=== PATIENT | male | born 1960 | race African-American/Black ===

== ENCOUNTER 2016-10-20 11:43 | Inpatient (IN) | payer OTHER ==
--- NOTE | 2016-10-20 12:02 | PDOC ---
History of Present Illness - General History Source: Patient - History of Present Illness Initial Comments: 10/20/16 16:18 The patient is a 55 year old female with a significant past medical history of HIV, and Hep C with cirrhosis of liver, on methadone, current cigarette smoker, presenting to the Emergency Department with fever, cough, and shortness of breath for four days. The patient states that he has had a progressively worsening cough for four days, which produces white phlegm. He also reports shortness of breath and chest pain. As per medical records, the patient was diagnosed with a UTI today, and was started on cipro. He admits that he saw his doctor today, and was sent to the ER for further evalutaion. Pt does endorse feeling not himself. The patient denies palpitations, or diaphoresis. Patient denies nausea, vomiting , and diarrhea. Patient denies headache, or blurry vision. <Florencia Rodriges - Last Filed: 10/20/16 16:18> <Emigdio Chávez - Last Filed: 10/20/16 17:02> - General Chief Complaint: Cold Symptoms Stated Complaint: COUGH Time Seen by Provider: 10/20/16 11:55 Past History <Florencia Rodriges - Last Filed: 10/20/16 16:18> - Past Medical History Anemia: No Asthma: No Cancer: No Cardiac Disorders: No CVA: No COPD: No CHF: No Dementia: No Diabetes: No GI Disorders: No Disorders: No HTN: No Hypercholesterolemia: No HIV: Yes Liver Disease: No Psychiatric Problems: Yes (multiple drug abuse.) Seizures: No Thyroid Disease: No - Surgical History Abdominal Surgery: No Appendectomy: No Cardiac Surgery: No Cholecystectomy: Yes Lung Surgery: No Neurologic Surgery: No Orthopedic Surgery: No - Psycho/Social/Smoking Cessation Hx Anxiety: Yes Suicidal Ideation: No Smoking History: Current every day smoker Have you smoked in the past 12 months: Yes Number of Cigarettes Smoked Daily: 5 Cigars Per Day: 0 'Breaking Loose' booklet given: 07/17/13 Hx Alcohol Use: Yes Drug/Substance Use Hx: Yes Substance Use Type: None Hx Substance Use Treatment: Yes <Emigdio Chávez - Last Filed: 10/20/16 17:02> - Past Medical History Allergies/Adverse Reactions: Allergies Allergy/AdvReac Type Severity Reaction Status Date / Time No Known Allergies Allergy Verified 10/20/16 11:45 Home Medications: Ambulatory Orders Methadone [Dolophine -] 65 mg PO DAILY 04/15/15 Pregabalin [Lyrica -] 50 mg PO DAILY #30 capsule MDD 1 06/30/16 Mirtazapine [Remeron -] 15 mg PO DAILY #30 tablet 10/05/16 Trazodone HCl 100 mg PO HS #60 tablet 10/05/16 Amlodipine Besylate [Norvasc -] 5 mg PO DAILY #30 tablet 10/20/16 Ciprofloxacin [Cipro (Restricted To Id)] 500 mg PO Q12H #20 tablet 10/20/16 Emtricita/Rilpivirine/Tenof Df [Complera Tablet] 1 each PO DAILY #30 tablet 12/29 Ibuprofen 800 mg PO Q8H #10 tablet 10/20/16 Multivitamins [Multivit ([facility] Formulary)] 1 tab PO DAILY #30 tab 10/20/16 Terbinafine HCl [Lamisil] 250 mg PO DAILY #30 tablet 10/20/16 Vit B6/Me-Thfolate/Me-B12/Ala [Podiapn Capsule] 1 cap PO DAILY #30 capsule 10/20 Respiratory Specific PMHX - Complaint Specific PMHX Pneumonia: No TB (Tuberculosis): No <Emigdio Chávez - Last Filed: 10/20/16 17:02> Review of Systems - Review of Systems Able to Perform ROS?: Yes Comments:: 10/20/16 16:18 CONSTITUTIONAL: Reported: + fever, No reported: Chills, Diaphoresis, Generalized Weakness, Malaise, Loss of Appetite HEENT: No reported: Rhinorrhea, Nasal Congestion, Throat Pain, Throat Swelling, Difficulty Swallowing, Mouth Swelling, Ear Pain, Eye Pain, Visual Changes CARDIOVASCULAR: Reported: + chest pain No reported: Syncope, Palpitations, Irregular Heart Rate, Lightheadedness, Peripheral Edema RESPIRATORY: Reported: + cough producing white phlegm, + shortness of breath No reported: Orthopnea, Wheezing, Stridor, Hemoptysis GASTROINTESTINAL: No reported: Abdominal pain, Abdominal Distension, Nausea, Vomiting, Diarrhea, Constipation, Melena, Hematochezia GENITOURINARY: Reported: + UTI No reported: Urgency, Hesitancy, Flank Pain, Genital Pain MUSCULOSKELETAL: No reported: Myalgia, Arthralgia, Joint Swelling, Back pain, Neck Pain SKIN: No reported: Rash, Itching, Pallor HEMATOLOGIC/IMMUNOLOGIC: No reported: Easy Bleeding, Easy Bruising, Lymphadenopathy, Frequent infections ENDOCRINE: No reported: Unexplained Weight Gain, Unexplained Weight Loss, Heat Intolerance , Cold Intolerance NEUROLOGIC: No reported: Headache, Focal Weakness, Paresthesias, Vertigo, Lightheadedness, Unsteady Gait, Seizure, Mental Status Changes, Incontinence PSYCHIATRIC: No reported: Anxiety, Depression <Florencia Rodriges - Last Filed: 10/20/16 16:18> *Physical Exam - Vital Signs Last Vital Signs Temp Pulse Resp BP Pulse Ox 102.9 F H 94 H 22 153/81 96 10/20/16 12:53 10/20/16 12:53 10/20/16 12:53 10/20/16 12:53 10/20/16 12:53 - Physical Exam Comments: 10/20/16 16:19 GENERAL: The patient is awake, alert when verbally stimulated but becomes somnolent gradually during evaluation, Nontoxic - in no acute distress. HEAD: Normocephalic, atraumatic. EYES: extraocular movements intact, sclera anicteric, conjunctiva clear. ENT: Normal voice, Moist mucous membranes. NECK: Normal range of motion, supple without stiffness LUNGS:rales at L>R bsae HEART: Regular rate and rhythm, ABDOMEN: Soft, nontender, normoactive bowel sounds. No guarding, no rebound. . No CVA tenderness EXTREMITIES: Normal range of motion, no edema. +clubbing of fingertips NEUROLOGICAL: No facial assymetry, Normal speech, PSYCH: Normal mood, normal affect. SKIN: hot to touch, Dry, normal turgor, <Florencia Rodriges - Last Filed: 10/20/16 16:18> Heart Score/ECG Review - ECG Impressions Comment:: 10/20/16 12:43 Twelve-lead EKG was performed and reviewed by me. There is normal sinus rhythm with a normal rate. rate of 92 The axis is normal. The intervals are normal. There is normal R wave progression There are no ST or T wave abnormalities. <Emigdio Chávez - Last Filed: 10/20/16 17:02> ED Treatment Course - LABORATORY CBC & Chemistry Diagram: 10/20/16 12:09 10/20/16 12:09 - ADDITIONAL ORDERS Additional order review: Laboratory Results 10/20/16 10/20/16 10/20/16 12:36 12:25 12:09 INR PTT (Actin FS) VBG pH 7.36 POC VBG pCO2 48.9 POC VBG pO2 26.6 L Mixed VBG HCO3 27.2 H Sodium Potassium Chloride Carbon Dioxide Anion Gap BUN Creatinine Creat Clearance w eGFR Random Glucose Lactic Acid Calcium Total Bilirubin AST ALT Alkaline Phosphatase Ammonia 29.85 LD Total Creatine Kinase Creatine Kinase Index CK-MB (CK-2) CK-MB (CK-2) Rel Index Cancelled Troponin I Total Protein Albumin Urine Color Urine Appearance Urine pH Urine Protein Urine Glucose (UA) Urine Ketones Urine Blood Urine Nitrite Urine Bilirubin Urine Urobilinogen Ur Leukocyte Esterase Urine RBC Urine WBC Blood Type Antibody Screen 10/20/16 10/20/16 10/20/16 12:09 12:09 12:09 INR PTT (Actin FS) VBG pH POC VBG pCO2 POC VBG pO2 Mixed VBG HCO3 Sodium Potassium Chloride Carbon Dioxide Anion Gap BUN Creatinine Creat Clearance w eGFR Random Glucose Lactic Acid 1.6 Calcium Total Bilirubin AST ALT Alkaline Phosphatase Ammonia LD Total 248 H Creatine Kinase Creatine Kinase Index CK-MB (CK-2) CK-MB (CK-2) Rel Index Troponin I Total Protein Albumin Urine Color Urine Appearance Urine pH Urine Protein Urine Glucose (UA) Urine Ketones Urine Blood Urine Nitrite Urine Bilirubin Urine Urobilinogen Ur Leukocyte Esterase Urine RBC Urine WBC Blood Type B POSITIVE Antibody Screen Negative 10/20/16 10/20/16 10/20/16 12:09 12:09 12:09 INR 1.53 H D PTT (Actin FS) 38.8 H VBG pH POC VBG pCO2 POC VBG pO2 Mixed VBG HCO3 Sodium 134 L Potassium 4.2 Chloride 99 Carbon Dioxide 27 Anion Gap 8 BUN 22 H D Creatinine 1.8 H D Creat Clearance w eGFR 39.09 Random Glucose 97 D Lactic Acid Calcium 8.6 Total Bilirubin 1.5 H D AST 148 H D ALT 47 D Alkaline Phosphatase 127 H Ammonia LD Total Creatine Kinase 1320 H D Creatine Kinase Index 0.6 CK-MB (CK-2) 8.477 H CK-MB (CK-2) Rel Index Troponin I < 0.02 Total Protein 7.9 Albumin 3.5 Urine Color Yellow Urine Appearance Clear Urine pH 6.0 Urine Protein 1+ H Urine Glucose (UA) Negative Urine Ketones Negative Urine Blood 2+ H Urine Nitrite Negative Urine Bilirubin Negative Urine Urobilinogen 4.0 e.u/dl Ur Leukocyte Esterase Negative Urine RBC 3 Urine WBC 1 Blood Type Antibody Screen 10/20/16 12:09 RBC 4.63 MCV 92.4 MCHC 32.7 RDW 14.3 MPV 8.1 Neutrophils % 87.8 H D Lymphocytes % 6.7 L D Monocytes % 5.1 Eosinophils % 0.0 D Basophils % 0.4 - RADIOLOGY Radiograph Interpretation: 10/20/16 14:04 Chest XRay As reviewed by Dr. Sergey Almonte IMPRESSION: Cardiomegaly. No evidence of active pulmonary disease. 10/20/16 15:[address] As reviewed by Dr. Nir Pond IMPRESSION: No evidence of acute intracranial pathology. - Medications Given in the ED: ED Medications Discontinued Medications Generic Name Dose Route Start Last Admin Trade Name Freq PRN Reason Stop Dose Admin Acetaminophen 650 mg 10/20/16 12:55 10/20/16 13:02 Tylenol - PO 10/20/16 12:56 650 mg ONCE ONE Administration Sodium Chloride 1,000 mls @ 1,000 mls/hr 10/20/16 12:37 10/20/16 13:02 Normal Saline - IV 10/20/16 13:36 1,000 mls/hr .Q1H ONE Administration <Florencia Rodriges - Last Filed: 10/20/16 16:18> - LABORATORY CBC & Chemistry Diagram: 10/20/16 12:09 10/20/16 12:09 - RADIOLOGY Radiology Studies Ordered: Category Date Time Status CHEST X-RAY PORTABLE* [RAD] Stat Radiology 10/20/16 11:59 Ordered <Emigdio Chávez - Last Filed: 10/20/16 17:02> Medical Decision Making - Medical Decision Making 10/20/16 12:38 55y M hx of HIV (VRL <20, CD4 667) secondary to IVDU in the past, on HAART, HCV (VL undetectable), HTN, started on cipro fo UTI today at clinic, sent to the ED for evaluation, on exam the pt endorses havingsome cough, fevers for 4 days productive of whitish sputum. Pt seems mildly confused, but has rales inat the L base. pts vitals noted for hypoxia to low 90s/high 80s on RA, plaed on 2L of NC that improves to the high 90s. suspect pna, sepsis order set obtained will r/o hyperammonia will give fluids, will ck rectal temp 10/20/16 14:18 pts cxr is relatively clear without infiltrate, however with cough, rales and hypoxia suspect this is his main source of fever pts labs noted for low platelets pt does have episodes of confusion.. consider possible meningitis, however with platelets of 68, concern for complictions from tap clinically pt does not have any notable menigismus or signs/symtoms of meningits besides being confused. will treat pt with ctx 2g, vancomycin which will cover both pulmonary cause and meningitis will admit for further manageent 10/20/16 15:[address] sy agree with admission for further mangaement Case discussed in detail with admitting physician including history, physical exam and ancillary studies. Admitting physician has assumed care for the patient, will follow all pending diagnostics and will complete the evaluation and treatment. CRITICAL CARE DOCUMENTATION: I spent ~35 minutes of Critical Care time, excluding separately billable procedures, involving high complexity decision making to assess, manipulate and support vital system function(s) to treat single or multiple vital organ system failure and/or to prevent further life threatening deterioration of the patient' s condition. <Emigdio Chávez - Last Filed: 10/20/16 17:02> *DC/Admit/Observation/Transfer - Attestations Scribe Attestion: 10/20/16 16:19 Documentation prepared by Florencia Rodriges, acting as medical physics researcher for Emigdio Chávez MD. <Florencia Rodriges - Last Filed: 10/20/16 16:18> - Discharge Dispostion Admit: Yes <Emigdio Chávez - Last Filed: 10/20/16 17:02> Diagnosis at time of Disposition: HIV disease Pneumonia Qualifiers: Pneumonia type: due to unspecified organism Laterality: unspecified laterality Lung location: unspecified part of lung Qualified Code(s): J18.9 - Pneumonia, unspecified organism Altered mental status Qualifiers: Altered mental status type: unspecified Qualified Code(s): R41.82 - Altered mental status, unspecified - Referrals
[2016-10-20 12:27] LABS: BASOPHIL 0.4 % (0-2.0); MCH 30.3 pg (25.7-33.7); MCHC 32.7 g/dl (32.0-35.9); MEAN CELL VOLUME 92.4 fl (80-96); MEAN PLT VOLUME 8.1 fl (7.5-11.1); NEUTROPHILS 87.8 % (42.8-82.8); PLATELET COUNT 68 K/MM3 (134-434); RDW 14.3 % (11.9-15.9); WHITE BLOOD COUNT 4.5 K/mm3 (4.0-10.0)
[2016-10-20 12:31] LABS: VENOUS BLOOD GAS HCO3 27.2 meq/L (19-25); VENOUS PH 7.36 (7.32-7.42)
[2016-10-20] MEDS ORDERED: SODIUM CHLORIDE 1,000 ML IV ONE (12:37)
[2016-10-20 12:54] LABS: INR 1.53 (0.82-1.09)
[2016-10-20] MEDS ORDERED: ACETAMINOPHEN 325 MG TABLET (FP) PO ONE (12:55)
[2016-10-20 12:56] LABS: ACTIVATED PTT 38.8 SECONDS (26.9-34.4)
[2016-10-20 12:57] LABS: ALBUMIN 3.5 g/dl (3.4-5.0); ANION GAP 8 (8-16); BILIRUBIN,TOTAL 1.5 mg/dL (0.2-1.0); CALCIUM 8.6 mg/dL (8.5-10.1); CO2 27 mmol/L (21-32); COCKROFT - GAULT 67.97; CREATININE 1.8 mg/dL (0.7-1.3); GLUCOSE,RANDOM 97 mg/dL (74-106); SGOT/AST 148 U/L (15-37); SGPT/ALT 47 U/L (12-78); TOT PROT 7.9 g/dl (6.4-8.2)
[2016-10-20] MEDS ORDERED: ACETAMINOPHEN 325 MG TABLET (FP) ONE (12:58)
[2016-10-20 13:09] LABS: ALK PHOS 127 U/L (45-117); TROPONIN I < 0.02 ng/ml (0.00-0.05)
[2016-10-20 13:31] LABS: URINE APPEARANCE CLEAR; URINE BILIRUBIN NEGATIVE (NEGATIVE); URINE COLOR YELLOW; URINE GLUCOSE (UA) NEGATIVE (NEGATIVE); URINE KETONE NEGATIVE (NEGATIVE); URINE LEUK ESTERASE NEGATIVE (NEGATIVE); URINE NITRITE NEGATIVE (NEGATIVE); URINE UROBILINOGEN 4.0 E.U/dl E.U./dl (0.2-1.0)
[2016-10-20 13:59] LABS: URINE BLOOD 2+ (NEGATIVE); URINE PROTEIN 1+ (NEGATIVE)
[2016-10-20 14:00] LABS: URINE RBC 3 /hpf (0-3); URINE WBC 1 /hpf (3-5)
[2016-10-20] MEDS ORDERED: CEFTRIAXONE 2 GM in DEXTROSE 5%-WATER - 50 ML IVPB ONE (14:16)
[2016-10-20] MEDS ORDERED: VANCOMYCIN 1,000 MG in DEXTROSE 5%-WATER - 250 ML IVPB ONE (14:16)
[2016-10-20] MEDS ORDERED: VANCOMYCIN 1 GRAM (PRE-DOCKED) 250 ML IVPB ONE (15:14)
[2016-10-20] MEDS ORDERED: CEFTRIAXONE 100 ML IVPB ONE (15:14)
--- NOTE | 2016-10-20 15:19 | EKG ---
Test Reason : Blood Pressure : / mmHG Vent. Rate : 092 BPM Atrial Rate : 092 BPM P-R Int : 180 ms QRS Dur : 100 ms QT Int : 366 ms P-R-T Axes : 075 001 060 degrees QTc Int : 452 ms NORMAL SINUS RHYTHM POSSIBLE LEFT ATRIAL ENLARGEMENT BORDERLINE ECG WHEN COMPARED WITH ECG OF 29-JUN-2016 10:46, NO SIGNIFICANT CHANGE WAS FOUND Confirmed by JACKSON WHITLEY MD ([id number]) on 10/20/2016 3:18:37 PM Referred By: Confirmed By:JACKSON WHITLEY MD
--- NOTE | 2016-10-20 15:50 | HP ---
CHIEF COMPLAINT: Cough and fever PCP: [facility] HISTORY OF PRESENT ILLNESS: Poor historian Patient is a 55 year old male with a PMHx of treated Hepatitis C, Stable HIV on HAART with last CD4 667 and viral load >20copies, HTN, Polysubstance abuse on Methadone who reports feeling "lousy" for the last 4 days associated with a productive cough with cheesh-na green sputum that has progressively worsened. Yesterday, patient was laying in bed and began experiencing polyuria every one to two hours throughout the night to the point where he almost urinated on himself. Patient also experienced shortness of breath that prompted him to visit the clinic. They prescribed Ciprofloxacin for UTI, but noticed patient had a fever and brought him to the hospital. Patient on admission was found to have a fever of >102 F, tachypnea, and hypoxia. Patient also reports RLQ pain that he's experienced for several years but worsened today. The pain is a stabbing, nonradiating, and intermittent. The pain occurs every two hours and lasts for an hour. The pain was rated a 7/10 with no alleviating or exacerbating factors. Otherwise, patient denies chest pain, palpitations, hematuria, visual changes, headaches, diarrhea, change in diet. Patient denies taking any drugs or alcohol recently. Patient reports compliance with his medications ER course was notable for: (1) Chest X-ray no acute pathology (2) Ceftriaxone and Vancomycin given (3) Sepsis protocol given Recent Travel: Denies PAST MEDICAL HISTORY: Treated Hepatitis C, HIV, HTN, Polysubstance abuse PAST SURGICAL HISTORY: Cholecystectomy Social History: Smoking: Smokes almost half a pack per day Alcohol: Denies Drugs: Denies Family History: Denies Allergies: No Known Allergies Allergy (Verified 10/20/16 11:45) HOME MEDICATIONS: Home Medications Medication Instructions Recorded Methadone [Dolophine -] 65 mg PO DAILY 04/15/15 Pregabalin [Lyrica -] 50 mg PO DAILY #30 capsule MDD 1 06/30/16 Mirtazapine [Remeron -] 15 mg PO DAILY #30 tablet 10/05/16 Trazodone HCl 100 mg PO HS #60 tablet 10/05/16 Amlodipine Besylate [Norvasc -] 5 mg PO DAILY #30 tablet 10/20/16 Ciprofloxacin [Cipro (Restricted 500 mg PO Q12H #20 tablet 10/20/16 To Id)] Emtricita/Rilpivirine/Tenof Df 1 each PO DAILY #30 tablet 10/20/16 [Complera Tablet] Ibuprofen 800 mg PO Q8H #10 tablet 10/20/16 Multivitamins [Multivit ([facility] 1 tab PO DAILY #30 tab 10/20/16 Formulary)] Terbinafine HCl [Lamisil] 250 mg PO DAILY #30 tablet 10/20/16 Vit B6/Me-Thfolate/Me-B12/Ala 1 cap PO DAILY #30 capsule 10/20/16 [Podiapn Capsule] REVIEW OF SYSTEMS CONSTITUTIONAL: fever, chills Absent: diaphoresis, generalized weakness, malaise, loss of appetite, weight change HEENT: Absent: rhinorrhea, nasal congestion, throat pain, throat swelling, difficulty swallowing, mouth swelling, ear pain, eye pain, visual changes CARDIOVASCULAR: Absent: chest pain, syncope, palpitations, irregular heart rate, lightheadedness , peripheral edema RESPIRATORY: cough, shortness of breath Absent: dyspnea with exertion, orthopnea, wheezing, stridor, hemoptysis GASTROINTESTINAL: abdominal pain, abdominal distension Absent: nausea, vomiting, diarrhea, constipation, melena, hematochezia GENITOURINARY: frequency Absent: dysuria, urgency, hesitancy, hematuria, flank pain, genital pain MUSCULOSKELETAL: myalgia Absent: arthralgia, joint swelling, back pain, neck pain SKIN: Absent: rash, itching, pallor HEMATOLOGIC/IMMUNOLOGIC: Absent: easy bleeding, easy bruising, lymphadenopathy, frequent infections ENDOCRINE: Absent: unexplained weight gain, unexplained weight loss, heat intolerance, cold intolerance NEUROLOGIC: Absent: headache, focal weakness or paresthesias, dizziness, unsteady gait, seizure, mental status changes, bladder or bowel incontinence PSYCHIATRIC: Absent: anxiety, depression, suicidal or homicidal ideation, hallucinations. PHYSICAL EXAMINATION Vital Signs - 24 hr 10/20/16 10/20/16 10/20/16 11:59 12:45 12:53 Temperature 99.4 F 102.9 F H Pulse Rate 95 H Pulse Rate [ 94 H Apical] Respiratory 18 22 Rate Blood Pressure 150/98 Blood Pressure 153/81 [Right Arm] O2 Sat by Pulse 90 L 95 96 Oximetry (%) GENERAL: Awake, alert, mildly confused, in no acute distress. HEAD: Normal with no signs of trauma. EYES: Pupils equal, round and reactive to light, extraocular movements intact, sclera anicteric, conjunctiva clear. EARS, NOSE, THROAT: Ears normal, nares patent, oropharynx clear without exudates. Moist mucous membranes. NECK: Normal range of motion, supple without lymphadenopathy, JVD, or masses. LUNGS: Crackles throughout the left base, no wheezes. HEART: Regular rate and rhythm, normal S1 and S2 without murmur, rub or gallop. ABDOMEN: Soft, protruding and distended, tenderness upon palpation of right lower quadrant. (+) rebound tenderness Normoactive bowel sounds MUSCULOSKELETAL: Normal range of motion at all joints. No bony deformities or tenderness. No CVA tenderness. UPPER EXTREMITIES: No peripheral edema. LOWER EXTREMITIES: Swelling, erythema, and tenderness of bilateral legs, worse on the right with erythema of right hallux NEUROLOGICAL: Stuttered speech. Motor strength 5/5 throughout. Sensory intact PSYCHIATRIC: Cooperative. Good eye contact. Appropriate mood and affect. SKIN: Erythema, warmth, swelling of bilateral lower extremities with no abrasions or drainage Laboratory Results - last 24 hr 10/20/16 10/20/16 10/20/16 12: 12: 12: WBC 4.5 RBC 4.63 Hgb 14.0 Hct 42.8 MCV 92.4 MCHC 32.7 RDW 14.3 Plt Count 68 L MPV 8.1 D Neutrophils % 87.8 H Lymphocytes % 6.7 L Monocytes % 5.1 Eosinophils % 0.0 D Basophils % 0.4 INR 1.53 H D PTT (Actin FS) 38.8 H VBG pH POC VBG pCO2 POC VBG pO2 Mixed VBG HCO3 Sodium Potassium Chloride Carbon Dioxide Anion Gap BUN Creatinine Creat Clearance w eGFR Random Glucose Lactic Acid Calcium Total Bilirubin AST ALT Alkaline Phosphatase Ammonia LD Total Creatine Kinase Creatine Kinase Index CK-MB (CK-2) CK-MB (CK-2) Rel Index Troponin I Total Protein Albumin Urine Color Yellow Urine Appearance Clear Urine pH 6.0 Urine Protein 1+ H Urine Glucose (UA) Negative Urine Ketones Negative Urine Blood 2+ H Urine Nitrite Negative Urine Bilirubin Negative Urine Urobilinogen 4.0 e.u/dl Ur Leukocyte Esterase Negative Urine RBC 3 Urine WBC 1 Blood Type Antibody Screen 10/20/16 10/20/16 10/20/16 12: 12: 12:09 WBC RBC Hgb Hct MCV MCHC RDW Plt Count MPV Neutrophils % Lymphocytes % Monocytes % Eosinophils % Basophils % INR PTT (Actin FS) VBG pH POC VBG pCO2 POC VBG pO2 Mixed VBG HCO3 Sodium 134 L Potassium 4.2 Chloride 99 Carbon Dioxide 27 Anion Gap 8 BUN 22 H Creatinine 1.8 H Creat Clearance w eGFR 39.09 Random Glucose 97 Lactic Acid 1.6 Calcium 8.6 Total Bilirubin 1.5 H AST 148 H D ALT 47 Alkaline Phosphatase 127 H Ammonia LD Total Creatine Kinase 1320 H D Creatine Kinase Index 0.6 CK-MB (CK-2) 8.477 H CK-MB (CK-2) Rel Index Troponin I < 0.02 Total Protein 7.9 Albumin 3.5 Urine Color Urine Appearance Urine pH Urine Protein Urine Glucose (UA) Urine Ketones Urine Blood Urine Nitrite Urine Bilirubin Urine Urobilinogen Ur Leukocyte Esterase Urine RBC Urine WBC Blood Type B POSITIVE Antibody Screen Negative 10/20/16 10/20/16 10/20/16 12: 12: 12:25 WBC RBC Hgb Hct MCV MCHC RDW Plt Count MPV Neutrophils % Lymphocytes % Monocytes % Eosinophils % Basophils % INR PTT (Actin FS) VBG pH 7.36 POC VBG pCO2 48.9 POC VBG pO2 26.6 L Mixed VBG HCO3 27.2 H Sodium Potassium Chloride Carbon Dioxide Anion Gap BUN Creatinine Creat Clearance w eGFR Random Glucose Lactic Acid Calcium Total Bilirubin AST ALT Alkaline Phosphatase Ammonia LD Total 248 H Creatine Kinase Creatine Kinase Index CK-MB (CK-2) CK-MB (CK-2) Rel Index Cancelled Troponin I Total Protein Albumin Urine Color Urine Appearance Urine pH Urine Protein Urine Glucose (UA) Urine Ketones Urine Blood Urine Nitrite Urine Bilirubin Urine Urobilinogen Ur Leukocyte Esterase Urine RBC Urine WBC Blood Type Antibody Screen 10/20/16 12:36 WBC RBC Hgb Hct MCV MCHC RDW Plt Count MPV Neutrophils % Lymphocytes % Monocytes % Eosinophils % Basophils % INR PTT (Actin FS) VBG pH POC VBG pCO2 POC VBG pO2 Mixed VBG HCO3 Sodium Potassium Chloride Carbon Dioxide Anion Gap BUN Creatinine Creat Clearance w eGFR Random Glucose Lactic Acid Calcium Total Bilirubin AST ALT Alkaline Phosphatase Ammonia 29.85 LD Total Creatine Kinase Creatine Kinase Index CK-MB (CK-2) CK-MB (CK-2) Rel Index Troponin I Total Protein Albumin Urine Color Urine Appearance Urine pH Urine Protein Urine Glucose (UA) Urine Ketones Urine Blood Urine Nitrite Urine Bilirubin Urine Urobilinogen Ur Leukocyte Esterase Urine RBC Urine WBC Blood Type Antibody Screen IMAGES Chest X-Ray (10/20/16): Cardiomegaly with no signs of pneumonia, atelectasis, pneumothorax, or pleural effusions. No signs of lung mass CT Head (10/20/16): No acute hemorrhage or infarction ASSESSMENT/PLAN: Patient is a 55 year old male with a PMHx of treated Hepatitis C, Stable HIV on HAART with last CD4 667 and viral load <20copies, HTN, Polysubstance abuse on Methadone who was brought in by his PCP for fever, shortness of breath, and productive cough. Patient was found to be septic and admitted for further monitoring and management. Sepsis Secondary to possible Pneumonia vs. Cellulitis- Acute -Fever >102 F, Tachypneic, Tachycardic, Afebrile -Productive cough with hypoxia -Erythema, swelling, and warmth of bilateral legs and right hallux -Lactic acid negative -Chest x-ray negative for acute pathology -U/A negative -Urine cultures and blood cultures sent -Urine antigens for pneumonia sent -Sputum cultures -Flu swab ordered, as per ID -Vancomycin 1000mg IV in the ED given, ordered additional 250mg. Random vanco level in the morning -Continue Ceftriaxone 2gm IV daily -1 bolus in the ED given, Another Bolus of IV NS ordered with maintenance IV NS @75mls/hr -Tylenol 650mg Q4H PRN Erythema, swelling, and Warmth of bilateral extremities and Right hallux- Acute -Worse on the right lower extremity -Duplex of bilateral legs ordered to rule out DVT -Blood cultures sent -Covered with IV Vancomycin 1250mg and Ceftriaxone 2gm Acute metabolic Encephalopathy- Acute -Likely secondary to sepsis vs. Drug intoxication -Patient has history of alcohol and IV drug abuse -Ammonia level normal -Urine toxicology ordered -Alcohol level ordered -Head CT negative RLQ Abdominal Pain- Acute on Chronic -Rule out appendicitis -CT Abdo/Pelvis ordered -Flagyl 500mg Q8H for anaerobic coverage. Will discontinue if CT results negative -Tylenol 650mg Q4H PRN for pain Acute Kidney Injury- Acute -On admission 1.6 uptrended to 1.8 within hours -Baseline 1.1 (last one 05/2016) -1 bolus IV NS given -Ordered 1 additional IV NS and maintenance IV NS @75mls/hr -Continue to monitor BMP Rhabdomyolysis- Acute -Possibly secondary to fall from drug intoxication -CPK 1320 -Creatinine 1.8 -2 Bolus's ordered. Continue IV NS @75mls/hr -Continue to monitor CPK Thrombocytopenia- Chronic -Likely chronic -Today 68 -Previous level on 05/2016 was 129 -Transfuse if levels <10,000 or <30,000 if actively bleeding HIV- Chronic and Stable -Stable with last CD 4 667 and last Viral load <20 copies -Continue with Tenof Df daily Polysubstance Abuse -Denies any recent use -Alcohol levels ordered -Urine toxicology levels ordered -Continue with Methadone 65mg daily HTN- Controlled -Controlled with Norvasc 5mg daily -Continue to monitor CHUCHO Depression -Continue with Remeron 15mg daily -Continue Trazadone 100mg HS F/E/N -IV NS @75mls/hr -Electrolytes wnl -Sodium controlled diet Prophylaxis -Heparin 5000 units BID SQ for DVT Disposition -Awaiting chest/abdo/pelvis CT. Will continue IV antibiotics. Will likely remain overnight. Visit type - Emergency Visit Emergency Visit: Yes ED Registration Date: 10/20/16 Care time: The patient presented to the Emergency Department on the above date and was hospitalized for further evaluation of their emergent condition. - New Patient This patient is new to me today: Yes Date on this admission: 10/20/16 - Critical Care Critical Care patient: No
[2016-10-20] MEDS ORDERED: VANCOMYCIN 250 MG in DEXTROSE 5%-WATER - 250 ML IVPB ONE (16:27)
[2016-10-20] MEDS ORDERED: IBUPROFEN 600 MG TABLET (FP) PO ONE ×2 (16:34→16:38)
[2016-10-20] MEDS ORDERED: ACETAMINOPHEN 325 MG TABLET (FP) PO PRN (16:47)
[2016-10-20] MEDS ORDERED: SODIUM CHLORIDE 1,000 ML IV STA (16:47)
--- NOTE | 2016-10-20 16:51 | PN ---
Progress Note (short form) - Note Progress Note: ID consult dictated patient seen in ED sent from [facility] with fever 55 year old man with stable HIV (viral load undectected, cd4 667), treated hep c he felt un well on Monday and had several eppisodes of vomiting he had constipation on Monday he had fever and myalgia and cough he also had polyuria, no dysuria and was running to the bathroom to urinate for two days [facility] and was sent to the ED he has fever to 102.9 no headache he is alert and oriented pe notable for crackles left lung base, RLQ discomfort to palpation, no cvat RLE swelling (he has had for one month with erythema and erythema of the big toe ) labs notable for thrombocytopenia, elevated creatinine and CPK cxray and ua are negative plan sepsis syndrome possible pneumonia possible appendicitis possible cellulitis LLE ?bacteremia rhabdomyolysis stable hiv treated hep c YVON agree with vanco/rocephin/ add flagyl until ct is done may need atypical coverage if ct shows pneumonia f/u cultures influenza screen legionella/pneumococcal antigen IVF repeat vanco level in am ct scan chest/abd/pelvis- no contrast
[2016-10-20] MEDS ORDERED: VANCOMYCIN 250 MG in DEXTROSE 5%-WATER - 100 ML IVPB ONE (16:55)
[2016-10-20 17:25] VITALS: BMI 33.5
--- NOTE | 2016-10-20 17:35 | PN ---
Teaching Attending Note Name of Resident: Bri Mars ATTENDING PHYSICIAN STATEMENT I saw and evaluated the patient. I reviewed the resident's note and discussed the case with the resident. I agree with the resident's findings and plan as documented. SUBJECTIVE: This is a 55 year old man with a history of HIV, hepatitis C, cirrhosis, HTN, polysubstance abuse who presented to the ER with fever, productive cough, and SOB x 4 days. He went to [facility] today. He was given Cipro for a UTI but then was found to have fever and was sent to the ER. He has been confused and unable to provide a complete history. OBJECTIVE: Vital Signs Period Temp Pulse Resp BP Sys/Forman Pulse Ox Last 24 Hr 99.4 F-102.9 F 88-95 18-22 122-153/73-98 90-96 HEART: S1S2, RRR LUNGS: crackles at left base ABDOMEN: Soft, (+) RLQ tenderness, non-distended, normal BS EXTREMITIES: Right foot swollen with erythema of 1st toe ASSESSMENT AND PLAN: This is a 55 year old man with a history of HIV, hepatitis C, cirrhosis, HTN, polysubstance abuse, depression who presented to the ER with fever, productive cough, and SOB. 1. Sepsis secondary to cellulitis of right 1st toe, possible pneumonia - Rocephin, Vancomycin given in ER - IV fluid - CT chest/abd/pelvis - ID consult - Follow up blood cultures 2. Acute hypoxic respiratory failure - Oxygen to maintain saturation > 90% 3. Acute metabolic encephalopathy secondary to sepsis 4. Acute kidney injury secondary to sepsis, rhabdomyolysis - IV fluid - Monitor creatinine 5. Rhabdomyolysis - IV fluid - Monitor CK 6. Thrombocytopenia - Acute, secondary to sepsis, on chronic 7. Hypertension - Continue Norvasc 8. HIV - Continue Tenof DF 9. Hepatitis C 10. Cirrhosis 11. Depression - Continue Remeron, Trazodone 12. History of polysubstance abuse - Continue Methadone
[2016-10-20] MEDS: SODIUM CHLORIDE 1,000 ML IV SCH (17:46)
[2016-10-20 18:59] LABS: URINE MARIJUANA THC NEGATIVE ng/ml (CUTOFF=50)
[2016-10-20] MEDS: METRONIDAZOLE 500 MG PREMIXED 100 ML IVPB SCH (22:00)
[2016-10-20] MEDS: traZODone HCL 50 MG TABLET (FP) PO SCH (22:00)
[2016-10-20] MEDS: HEPARIN NA (PORCINE) 5,000 UNITS/ML 1ML VIAL SQ SCH (22:09)
[2016-10-21] MEDS: METRONIDAZOLE 500 MG PREMIXED 100 ML IVPB SCH (01:00)
[2016-10-21] MEDS ORDERED: METHADONE HCL 10 MG TABLET PO ONE (06:54)
[2016-10-21 06:58] LABS: MCH 30.8 pg (25.7-33.7); MCHC 33.3 g/dl (32.0-35.9); MEAN CELL VOLUME 92.4 fl (80-96); MEAN PLT VOLUME 8.7 fl (7.5-11.1); PLATELET COUNT 57 K/MM3 (134-434); RDW 14.8 % (11.9-15.9); WHITE BLOOD COUNT 2.9 K/mm3 (4.0-10.0)
[2016-10-21 07:27] LABS: BILIRUBIN,TOTAL 1.6 mg/dL (0.2-1.0); CALCIUM 8.3 mg/dL (8.5-10.1); COCKROFT - GAULT 87.39; CREATININE 1.4 mg/dL (0.7-1.3); TOT PROT 7.2 g/dl (6.4-8.2)
--- NOTE | 2016-10-21 08:49 | PN ---
Progress Note (short form) - Note Progress Note: Feels much better today no fevers speech more fluent he is alert some cough, some abdominal discomfort RLQ Vital Signs Period Temp Pulse Resp BP Sys/Forman Pulse Ox Last 24 Hr 98.7 F-102.9 F 72-95 18-22 108-153/69-98 90-98 cor-rrr lungs clear abd soft,still some right sided discomfort to deep palpation ext less swelling, erythema, less warmth LLE CBC, BMP 10/21/16 06:00 10/21/16 06:00 Microbiology 10/20/16 20:30 Nasopharyngeal Swab Respiratory Virus Panel - Preliminary 10/20/16 17:44 Urine For Antigen Detection Legionella Antigen - Final 10/20/16 17:44 Urine For Antigen Detection Streptococcus pneumoniae Antigen (M - Final 10/20/16 12:09 Blood - Peripheral Venous Blood Culture - Preliminary Pending Organism 10/20/16 12:09 Blood - Peripheral Venous Blood Culture - Preliminary Pending Organism 10/20/16 20:30 Nasopharyngeal Swab Influenza Types A,B Antigen (TOÑO) - Final 10/20/16 20:30 Nasopharyngeal Swab - Final ct scan results pending (have called radiolgy to expedite) Laboratory Tests 10/21/16 06:00 Random Vancomycin 6.857 Current Medications Acetaminophen (Tylenol -) 650 mg PO Q4H PRN PRN Reason: FEVER OR PAIN Amlodipine Besylate (Norvasc -) 5 mg PO DAILY [facility] Ceftriaxone Sodium (Rocephin 2gm Ivpb (Pre-Docked)) 2 gm IVPB DAILY [facility] PRN Reason: Protocol Emtricitabine/Rilpivirine/Tenofovir (Complera -) 1 each PO DAILY [facility] Heparin Sodium (Porcine) (Heparin -) 5,000 unit SQ BID [facility] Last Admin: 10/20/16 22:09 Dose: 5,000 unit Metronidazole (Flagyl 500mg Premixed Ivpb -) 100 mls @ 100 mls/hr IVPB Q8H-IV HAN Last Admin: 10/21/16 01:00 Dose: 100 mls/hr Sodium Chloride (Normal Saline -) 1,000 mls @ 75 mls/hr IV ASDIR [facility] Last Admin: 10/20/16 17:46 Dose: 75 mls/hr Methadone HCl 80 mg/ Methadone (HCl 10 mg/ Methadone HCl 5 mg) 95 mg PO ONCE ONE Stop: 10/21/16 09:01 Mirtazapine (Remeron -) 15 mg PO DAILY [facility] Multivitamins/Minerals/Vitamin C (Tab-A-Vit -) 1 tab PO DAILY [facility] Non-Formulary Medication (Terbinafine Hcl [Lamisil]) 250 mg PO DAILY [facility] Pregabalin (Lyrica -) 50 mg PO DAILY [facility] Trazodone HCl (Desyrel -) 100 mg PO HS [facility] Last Admin: 10/20/16 22:00 Dose: 100 mg a/p sepsis syndrome gram positive bacteremia-?cellulitis rhabdomyolysis-continue hydration stable hiv treated hep c YVON-improving thrombocytopenia leukopenia review ct scans f/u cultures continue vancomycin and rocephin-redose vancomycin 1250 bid until cultures are back continue ART clinically improved suspect leukopenia/thrombocytopenia due to sepsis d/c lamisal-has not been taking since June, also can cause rise in LFTS Problem List - Problems (1) Sepsis syndrome Code(s): [id number] - (2) Bacteremia Code(s): R78.81 - BACTEREMIA (3) Cellulitis Code(s): L03.90 - CELLULITIS, UNSPECIFIED (4) YVON (acute kidney injury) Code(s): N17.9 - ACUTE KIDNEY FAILURE, UNSPECIFIED (5) Rhabdomyolysis Code(s): M62.82 - RHABDOMYOLYSIS (6) HIV disease Code(s): B20 - HUMAN IMMUNODEFICIENCY VIRUS [HIV] DISEASE (7) Hep C w/o coma, chronic Code(s): B18.2 - CHRONIC VIRAL HEPATITIS C (8) Altered mental status Code(s): R41.82 - ALTERED MENTAL STATUS, UNSPECIFIED Qualifiers: Altered mental status type: unspecified Qualified Code(s): R41.82 - Altered mental status, unspecified
--- NOTE | 2016-10-21 08:55 | CONS ---
DATE OF CONSULTATION: DATE OF DICTATION: 10/20/2016 CONSULTATION REQUESTED BY: The hospitalist service. This is a 55-year-old man with past medical history of stable HIV and treated hepatitis C. His CD4 count is 667 with undetectable viral load. He is a former substance user but has not been actively using in many years. He is an active cigarette smoker. He presented [facility] today with a history of not feeling well since Monday. He had several episodes of vomiting on Monday, with constipation. There is no diarrhea. On Monday he started having fevers and chills. He had polyuria but no dysuria, and he had some myalgias. He also reports cough. He presented to the clinic today. He was felt to have a UTI. He was given a prescription for Cipro, but prior to discharge from the clinic he was noted to have high fever and was sent to the emergency room. In the ER he had a fever of 102.9. He denies any headache. He denies any chest pain. He has had no diarrhea. PAST MEDICAL HISTORY: Notable for stable HIV disease, former substance use. He has a history of hypertension. He has had pneumonia once 5 years ago. He has never had any surgery. FAMILY HISTORY: Noncontributory. ALLERGIES: No known drug allergies. MEDICATIONS: His medications as an outpatient include methadone, Lyrica, Remeron, trazodone, amlodipine, Complera, multivitamins, terbinafine. SOCIAL HISTORY: He is a cigarette smoker. There is no history of any alcohol use. REVIEW OF SYSTEMS: He denies any headache or photophobia. He is alert and oriented, following commands. He does state he has a prior history of sciatica in the past. PHYSICAL EXAMINATION: Vital Signs: His temperature is 102. Pulse is 91. Blood pressure is 122/73. Respiratory rate is 18. He is saturating 94% on room air. HEENT: He is normocephalic. His eyes are anicteric. He has upper dentures. He has no thrush or pharyngitis. Neck: His neck is supple. There are no meningeal signs. Respiratory: His lungs have crackles at the right bases. Heart: Regular rate and rhythm. Abdomen: Soft. He has no right upper quadrant pain. He has right lower quadrant discomfort on palpation. Extremities: Notable for swelling of his left leg and his left great toe as well as erythema of the left lower leg which is greater than the right. LABORATORY: White count is 4.5, hemoglobin 14. Platelets are 68,000. INR is 1.5. BUN and creatinine are 22 and 1.8. Total bilirubin is 1.5 with AST 148. His CPK is 1320. His troponins are negative. Urinalysis has 1 white cell with 2+ blood, 1+ protein, and urine and blood cultures have been sent. SUMMARY: This is a 55-year-old man with high T-cells, stable HIV disease with fever, sepsis syndrome, possible pneumonia, possible appendicitis with right lower quadrant pain, possible cellulitis of the left lower extremity. I suspect maybe bacteremia given the degree of body ache and fever he has and the rhabdomyolysis. Would agree with vancomycin and Rocephin. We are planning to add Flagyl until the CAT scan is done. We may need atypical coverage. If the CAT scan shows pneumonia, would follow up those cultures. Influenza screen, Legionella, pneumococcal antigens, IV fluids. Would repeat a vancomycin level in the morning. CT of the chest, abdomen, and pelvis with no contrast have been ordered stat. I discussed this case with the resident, who will follow up on his imaging studies and further orders. He is to continue on IV fluids. Further recommendations to follow based on his clinical course. LAITH HADDAD M.D. [id number]
[2016-10-21] MEDS ORDERED: METHADONE 80 MG, METHADONE 10 MG, METHADONE 5 MG PO ONE (09:00)
--- NOTE | 2016-10-21 09:20 | PN ---
Physical Exam: SUBJECTIVE: Patient seen and examined by me at bedside. Patient offers no complaints. Stated he is feeling much better and offers no complaints. He denies fever, chills, nausea, vomiting, abdominal pain, chest pain, palpitations , dizziness, headaches, frequency, dysuria. OBJECTIVE: Vital Signs Period Temp Pulse Resp BP Sys/Forman Pulse Ox Last 24 Hr 98.7 F-102.4 F 72-91 18-22 108-122/69-76 94-98 GENERAL: Awake, alert, in no acute distress. LUNGS: Rhonchi throughout lung bases with no wheezing. HEART: Regular rate and rhythm, normal S1 and S2 without murmur, rub or gallop. ABDOMEN: Soft, protruding and distended, tenderness upon palpation of right lower quadrant. (+) rebound tenderness. Normoactive bowel sounds LOWER EXTREMITIES: Swelling, erythema, and tenderness of bilateral legs, with erythema of left hallux NEUROLOGICAL:Motor strength 5/5 throughout. Sensory intact. No facial droop. SKIN: Erythema, warmth, swelling of bilateral lower extremities with no abrasions or drainage Microbiology 10/20/16 20:30 Nasopharyngeal Swab Respiratory Virus Panel - Preliminary 10/20/16 17:44 Urine For Antigen Detection Legionella Antigen - Final 10/20/16 17:44 Urine For Antigen Detection Streptococcus pneumoniae Antigen (M - Final 10/20/16 12:09 Blood - Peripheral Venous Blood Culture - Preliminary Pending Organism 10/20/16 12:09 Blood - Peripheral Venous Blood Culture - Preliminary Pending Organism 10/20/16 20:30 Nasopharyngeal Swab Influenza Types A,B Antigen (TOÑO) - Final 10/20/16 20:30 Nasopharyngeal Swab - Final Laboratory Results - last 24 hr 10/21/16 10/21/16 10/21/16 06:00 06:00 06:00 WBC 2.9 L D RBC 4.35 Hgb 13.4 Hct 40.2 MCV 92.4 MCHC 33.3 RDW 14.8 Plt Count 57 L MPV 8.7 Sodium 137 Potassium 4.1 Chloride 104 Carbon Dioxide 27 Anion Gap 6 L BUN 24 H Creatinine 1.4 H D Creat Clearance w eGFR 52.24 Random Glucose 77 D Calcium 8.3 L Total Bilirubin 1.6 H AST 176 H ALT 52 Alkaline Phosphatase 113 Creatine Kinase 1063 H Creatine Kinase Index 0.9 CK-MB (CK-2) 6.011 H CK-MB (CK-2) Rel Index Total Protein 7.2 Albumin 3.0 L Random Vancomycin Opiates Screen Methadone Screen Barbiturate Screen Phencyclidine Screen Ur Amphetamines Screen MDMA (Ecstasy) Screen Benzodiazepines Screen Cocaine Screen U Marijuana (THC) Screen Alcohol, Quantitative Active Medications Generic Name Dose Route Start Last Admin Trade Name Freq PRN Reason Stop Dose Admin Amlodipine Besylate 5 mg 10/21/16 10:00 Norvasc - PO DAILY [facility] Ceftriaxone Sodium 2 gm 10/21/16 10:00 Rocephin 2gm Ivpb (Pre-Docked) IVPB DAILY HAN Protocol Emtricitabine/Rilpivirine/Tenofovir 1 each 10/21/16 10:00 Complera - PO DAILY HAN Heparin Sodium (Porcine) 5,000 unit 10/20/16 22:00 10/20/16 22:09 Heparin - SQ 5,000 unit BID HAN Administration Sodium Chloride 1,000 mls @ 75 mls/hr 10/20/16 17:00 10/20/16 17:46 Normal Saline - IV 75 mls/hr ASDIR HAN Administration Vancomycin HCl 1,250 mg/ 250 mls @ 250 mls/hr 10/21/16 10:00 Dextrose IVPB BID HAN Protocol Mirtazapine 15 mg 10/21/16 10:00 Remeron - PO DAILY HAN Multivitamins/Minerals/Vitamin C 1 tab 10/21/16 10:00 Tab-A-Vit - PO DAILY HAN Pregabalin 50 mg 10/21/16 10:00 Lyrica - PO DAILY HAN Trazodone HCl 100 mg 10/20/16 22:00 10/20/16 22:00 Desyrel - PO 100 mg HS HAN Administration IMAGES Chest X-Ray (10/20/16): Cardiomegaly with no signs of pneumonia, atelectasis, pneumothorax, or pleural effusions. No signs of lung mass. CT Head (10/20/16): No acute hemorrhage or infarction. Abdomen/Pelvic/Chest CT (10/20/16): Overall low lung volumes with mosaic lung attenuation is nonspecific and could be secondary to imaging in the expiratory phase or could be secondary to an element of air trapping seen in airway disease. Correlate with clinical history. No focal consolidation or mass seen. 3 to 4 mm right lower lobe groundglass nodule. Follow-up CT scan in 12 months is suggested. Dilated pulmonary trunk at 3.9 cm suggestive of an element of pulmonary hypertension. Bilateral gynecomastia. Marked splenomegaly with splenorenal shunting. This is of unclear etiology. Appendix not visualized however there are no indirect findings of acute appendicitis. Status post cholecystectomy. Duplex of Bilateral Lower Extremities (10/20/16): There is no evidence of deep venous thromboses in both lower extremities. ASSESSMENT/PLAN: Patient is a 55 year old male with a PMHx of treated Hepatitis C, Stable HIV on HAART with last CD4 667 and viral load <20copies, HTN, Polysubstance abuse on Methadone who was brought in by his PCP for fever, shortness of breath, and productive cough. Patient was found to be septic and admitted for further monitoring and management. Sepsis Secondary to possible Pneumonia vs. Cellulitis- Improving -Blood cultures positive for gram positive -Afebrile overnight -Chest x-ray negative for acute pathology -U/A negative -Urine cultures negative -Urine antigens for pneumonia negative -Influenza negative -Continue Vancomycin 1250mg IV BID until final blood cultures -Continue Ceftriaxone 2gm IV daily -Continue IV NS @75mls/hr -ECHO ordered -Second set of blood cultures ordered for tomorrow Erythema, swelling, and Warmth of bilateral extremities and Right hallux- Acute -Worse on the right lower extremity -Duplex of bilateral legs negative for DVT or Bakers cyst -Blood cultures positive for gram positive -Continue IV Vancomycin 1250mg BID and Ceftriaxone 2gm Acute metabolic Encephalopathy- Resolved -Likely secondary to sepsis vs. Drug intoxication -Patient has history of alcohol and IV drug abuse -Ammonia level normal -Urine toxicology negative except for methadone -Alcohol level negative -Head CT negative RLQ Abdominal Pain- Acute on Chronic -Rule out appendicitis -CT Abdo/Pelvis negative for acute pathology -Will discontinue Flagyl due to negative CT results Acute Kidney Injury- Acute -Possibly secondary to rhabdomyolysis -Today 1.4 -Baseline 1.1 (last one 05/2016) -Continue IV NS @75mls/hr -Continue to monitor BMP Rhabdomyolysis-Improving -Possibly secondary to fall -CPK 1063 -Creatinine 1.4 today -Continue IV NS @75mls/hr -Continue to monitor CPK Thrombocytopenia- Chronic -Likely chronic -Today 57 -Previous level on 05/2016 was 129 -Transfuse if levels <10,000 or <30,000 if actively bleeding HIV- Chronic and Stable -Stable with last CD 4 667 and last Viral load <20 copies -Continue with Tenof Df daily Polysubstance Abuse -Denies any recent use -Alcohol level negative -Urine toxicology negative -Continue with Methadone 65mg daily HTN- Controlled -Controlled with Norvasc 5mg daily -Continue to monitor BP Depression -Continue with Remeron 15mg daily -Continue Trazadone 100mg HS F/E/N -IV NS @75mls/hr -Electrolytes wnl -Sodium controlled diet Prophylaxis -Heparin 5000 units BID SQ for DVT Disposition -Blood cultures positive for gram positive. Waiting for cultures. Visit type - Emergency Visit Emergency Visit: Yes ED Registration Date: 10/20/16 Care time: The patient presented to the Emergency Department on the above date and was hospitalized for further evaluation of their emergent condition. - New Patient This patient is new to me today: No - Critical Care Critical Care patient: No
[2016-10-21] MEDS ORDERED: METHADONE HCL 5 MG TABLET ONE (09:23)
[2016-10-21] MEDS ORDERED: METHADONE HCL 40 MG DISPERSABLE TABLET ONE (09:23)
[2016-10-21] MEDS ORDERED: METHADONE HCL 10 MG TABLET ONE (09:23)
[2016-10-21] MEDS: HEPARIN NA (PORCINE) 5,000 UNITS/ML 1ML VIAL SQ SCH ×2 (09:28→21:02)
[2016-10-21] MEDS: PREGABALIN 50 MG CAPSULE PO SCH (09:29)
[2016-10-21] MEDS: cefTRIAXone 2 GM/100 ML BAG (PRE-DOCKED) IVPB SCH (09:29)
[2016-10-21] MEDS: MULTIVITAMINS (DAILY MVI) TABLET (FP) PO SCH (09:33)
[2016-10-21] MEDS: MIRTAZAPINE 15 MG TABLET (FP) PO SCH (09:33)
[2016-10-21] MEDS: amLODIPine BESYLATE 5 MG TABLET (FP) PO SCH (09:33)
[2016-10-21] MEDS ORDERED: PT OWN MED DRAWER 7, Y5N ONE (09:36)
[2016-10-21] MEDS ORDERED: PATIENT'S OWN MEDICATION (NON-FORMULARY) (Terbinafine Hcl [Lamisil] 250 MG) PO SCH (10:00)
[2016-10-21] MEDS ORDERED: METHADONE HCL 40 MG DISPERSABLE TABLET PO SCH (10:00)
[2016-10-21] MEDS: VANCOMYCIN 1,250 MG in DEXTROSE 5%-WATER - 250 ML IVPB SCH ×2 (12:10→22:49)
--- NOTE | 2016-10-21 12:41 | PN ---
Teaching Attending Note Name of Resident: Bri Mars ATTENDING PHYSICIAN STATEMENT I saw and evaluated the patient. I reviewed the resident's note and discussed the case with the resident. I agree with the resident's findings and plan as documented. SUBJECTIVE: No complaints. OBJECTIVE: Vital Signs Period Temp Pulse Resp BP Sys/Forman Pulse Ox Last 24 Hr 98.7 F-102.9 F 72-94 18-22 108-153/69-81 94-98 HEART: S1S2, RRR LUNGS: crackles at left base ABDOMEN: Soft, (+) RLQ tenderness, non-distended, normal BS EXTREMITIES: Right foot swollen with erythema of 1st toe ASSESSMENT AND PLAN: This is a 55 year old man with a history of HIV, hepatitis C, cirrhosis, HTN, polysubstance abuse, depression who presented to the ER with fever, productive cough, and SOB. 1. Sepsis secondary to cellulitis of right 1st toe - Continue Rocephin, Vancomycin - Continue IV fluid - No evidence of pneumonia or acute intra-abdominal pathology - Follow up blood cultures 2. Acute hypoxic respiratory failure - Oxygen to maintain saturation > 90% 3. Acute metabolic encephalopathy secondary to sepsis - Improved 4. Acute kidney injury secondary to sepsis, rhabdomyolysis - Improving - Continue IV fluid - Monitor creatinine 5. Rhabdomyolysis - Improving - Contnue IV fluid - Monitor CK 6. Thrombocytopenia - Acute, secondary to sepsis, on chronic 7. Hypertension - Continue Norvasc 8. HIV - Continue Complera 9. Hepatitis C 10. Cirrhosis 11. Depression - Continue Remeron, Trazodone 12. History of polysubstance abuse - Continue Methadone
[2016-10-21] MEDS: EMTRICITAB/RILPIVIRINE/TENOFOV 1 EACH TABLET PO SCH (15:31)
[2016-10-21] MEDS: SODIUM CHLORIDE 1,000 ML IV SCH (18:05)
[2016-10-21] MEDS: ACETAMINOPHEN 500 MG TABLET (FP) PO PRN (19:09)
[2016-10-21] MEDS: traZODone HCL 50 MG TABLET (FP) PO SCH (21:02)
[2016-10-22] MEDS ORDERED: METHADONE HCL 5 MG TABLET PO SCH (08:00)
--- NOTE | 2016-10-22 08:06 | PN ---
Physical Exam: SUBJECTIVE: Patient seen and examined by me at bedside. Overnight events noted for a fever which was resolved by Tylenol. He still complains of tenderness of bilateral legs. Today patients cough continues and has increasing rhonchi in bilateral bases, explained to patient that a chest x-ray will be done today Otherwise, patient denies chest pain, palpitations, shortness of breath, nausea , vomiting, headaches dizziness. OBJECTIVE: Vital Signs Period Temp Pulse Resp BP Sys/Forman Pulse Ox Last 24 Hr 98.0 F-101.5 F 76-85 17-18 140/76 98 GENERAL: Awake, alert, in no acute distress. LUNGS: Rhonchi throughout lung bases with no wheezing. HEART: Regular rate and rhythm, normal S1 and S2 without murmur, rub or gallop. ABDOMEN: Soft, protruding and distended, tenderness upon palpation of right lower quadrant. (+) rebound tenderness. Normoactive bowel sounds LOWER EXTREMITIES: Swelling, erythema, and tenderness of bilateral legs with erythema of left hallux NEUROLOGICAL: Stuttered speech. Motor strength 5/5 throughout. Sensory intact SKIN: Erythema, warmth, swelling of bilateral lower extremities with no abrasions or drainage Microbiology 10/20/16 12:09 Blood - Peripheral Venous Blood Culture - Preliminary Alpha Hemolytic Streptococcus 10/20/16 12:09 Blood - Peripheral Venous Blood Culture - Preliminary Alpha Hemolytic Streptococcus 10/20/16 13:21 Urine - Urine Clean Catch Urine Culture - Final 10/20/16 20:30 Nasopharyngeal Swab Respiratory Virus Panel - Preliminary 10/20/16 17:44 Urine For Antigen Detection Legionella Antigen - Final 10/20/16 17:44 Urine For Antigen Detection Streptococcus pneumoniae Antigen (M - Final 10/20/16 20:30 Nasopharyngeal Swab Influenza Types A,B Antigen (TOÑO) - Final 10/20/16 20:30 Nasopharyngeal Swab - Final Active Medications Generic Name Dose Route Start Last Admin Trade Name Freq PRN Reason Stop Dose Admin Acetaminophen 500 mg 10/21/16 19:00 10/21/16 19:09 Tylenol - PO 500 mg Q6H PRN Administration FEVER OR PAIN Amlodipine Besylate 5 mg 10/21/16 10:00 10/21/16 09:33 Norvasc - PO 5 mg DAILY HAN Administration Ceftriaxone Sodium 2 gm 10/21/16 10:00 10/21/16 09:29 Rocephin 2gm Ivpb (Pre-Docked) IVPB 2 gm DAILY HAN Administration Protocol Emtricitabine/Rilpivirine/Tenofovir 1 each 10/21/16 10:00 10/21/16 15:31 Complera - PO Not Given DAILY HAN Heparin Sodium (Porcine) 5,000 unit 10/20/16 22:00 10/21/16 21:02 Heparin - SQ 5,000 unit BID HAN Administration Sodium Chloride 1,000 mls @ 75 mls/hr 10/20/16 17:00 10/21/16 18:05 Normal Saline - IV 75 mls/hr ASDIR HAN Administration Vancomycin HCl 1,250 mg/ 250 mls @ 166.667 mls/hr 10/21/16 11:00 10/21/16 22:49 Dextrose IVPB 166.667 mls/hr BID@1100,2300 HAN Administration Protocol Methadone HCl 80 mg/ Methadone 95 mg 10/22/16 08:00 HCl 10 mg/ Methadone HCl 5 mg PO DAILY@0600 HAN Mirtazapine 15 mg 10/21/16 10:00 10/21/16 09:33 Remeron - PO 15 mg DAILY HAN Administration Multivitamins/Minerals/Vitamin C 1 tab 10/21/16 10:00 10/21/16 09:33 Tab-A-Vit - PO 1 tab DAILY HAN Administration Pregabalin 50 mg 10/21/16 10:00 10/21/16 09:29 Lyrica - PO 50 mg DAILY HAN Administration Trazodone HCl 100 mg 10/20/16 22:00 10/21/16 21:02 Desyrel - PO 100 mg HS HAN Administration IMAGES Chest X-Ray (10/20/16): Cardiomegaly with no signs of pneumonia, atelectasis, pneumothorax, or pleural effusions. No signs of lung mass. CT Head (10/20/16): No acute hemorrhage or infarction. Abdomen/Pelvic/Chest CT (10/20/16): Overall low lung volumes with mosaic lung attenuation is nonspecific and could be secondary to imaging in the expiratory phase or could be secondary to an element of air trapping seen in airway disease. Correlate with clinical history. No focal consolidation or mass seen. 3 to 4 mm right lower lobe groundglass nodule. Follow-up CT scan in 12 months is suggested. Dilated pulmonary trunk at 3.9 cm suggestive of an element of pulmonary hypertension. Bilateral gynecomastia. Marked splenomegaly with splenorenal shunting. This is of unclear etiology. Appendix not visualized however there are no indirect findings of acute appendicitis. Status post cholecystectomy. Duplex of Bilateral Lower Extremities (10/20/16): There is no evidence of deep venous thromboses in both lower extremities. ASSESSMENT/PLAN: Patient is a 55 year old male with a PMHx of treated Hepatitis C, Stable HIV on HAART with last CD4 667 and viral load <20copies, HTN, Polysubstance abuse on Methadone who was brought in by his PCP for fever, shortness of breath, and productive cough. Patient was found to be septic and admitted for further monitoring and management. Sepsis Secondary to possible Cellulitis vs. Pneumonia- Improving -Blood cultures positive for gram positive -Afebrile overnight -Chest x-ray negative for acute pathology -U/A negative -Urine cultures negative -Urine antigens for pneumonia negative -Influenza negative -Duplex of bilateral legs negative for DVT or Bakers cyst -Continue Vancomycin 1250mg IV BID day #3 until final blood cultures. Vanc trough before 2nd dose of the day -Continue Ceftriaxone 2gm IV daily Day #3 -Continue IV NS @75mls/hr -ECHO wnl. Will consider MIKE -Second set of blood cultures ordered for today -Chest x-ray ordered for today Acute metabolic Encephalopathy- Resolved -Likely secondary to sepsis vs. Drug intoxication -Patient has history of alcohol and IV drug abuse -Ammonia level normal -Urine toxicology negative except for methadone -Alcohol level negative -Head CT negative RLQ Abdominal Pain- Chronic and Improved -CT Abdo/Pelvis negative for acute pathology Acute Kidney Injury- Resolving -Possibly secondary to rhabdomyolysis -Today 1.2 -Baseline 1.1 (last one 05/2016) -Continue IV NS @75mls/hr -Continue to monitor BMP Rhabdomyolysis-Improving -Possibly secondary to fall -CPK 704 -Creatinine 1.2 -Continue IV NS @75mls/hr -Continue to monitor CPK Thrombocytopenia and Neutropenia- Chronic and stable -Likely chronic -Today's WBC 2.3 -Today's Platelets 55 -Previous level on 05/2016 was 129 -Transfuse if levels <10,000 or <30,000 if actively bleeding HIV- Chronic and Stable -Stable with last CD 4 667 and last Viral load <20 copies -Continue with Tenof Df daily Polysubstance Abuse -Denies any recent use -Alcohol level negative -Urine toxicology negative -Continue with Methadone 95mg daily HTN- Controlled -Controlled with Norvasc 5mg daily -Continue to monitor BP Depression -Continue with Remeron 15mg daily -Continue Trazadone 100mg HS F/E/N -IV NS @75mls/hr -Electrolytes wnl -Sodium controlled diet Prophylaxis -Heparin 5000 units BID SQ for DVT Disposition -Blood cultures positive for gram positive. Waiting for final culture. Chest X- ray pending Visit type - Emergency Visit Emergency Visit: Yes ED Registration Date: 10/20/16 Care time: The patient presented to the Emergency Department on the above date and was hospitalized for further evaluation of their emergent condition. - New Patient This patient is new to me today: No - Critical Care Critical Care patient: No
[2016-10-22 08:09] LABS: BASOPHIL 0.6 % (0-2.0); EOSINOPHIL 2.1 % (0-4.5); MCH 30.7 pg (25.7-33.7); MCHC 33.6 g/dl (32.0-35.9); MEAN CELL VOLUME 91.4 fl (80-96); MEAN PLT VOLUME 8.6 fl (7.5-11.1); NEUTROPHILS 50.6 % (42.8-82.8); PLATELET COUNT 55 K/MM3 (134-434); RDW 14.5 % (11.9-15.9); WHITE BLOOD COUNT 2.3 K/mm3 (4.0-10.0)
[2016-10-22 08:34] LABS: ALBUMIN 2.9 g/dl (3.4-5.0); ALK PHOS 114 U/L (45-117); ANION GAP 8 (8-16); C-REACTIVE PROTEIN 10.8 MG/DL (0.00-0.3); CALCIUM 8.3 mg/dL (8.5-10.1); CO2 26 mmol/L (21-32); COCKROFT - GAULT 101.96; CREATININE 1.2 mg/dL (0.7-1.3); GLUCOSE,RANDOM 71 mg/dL (74-106); SGOT/AST 191 U/L (15-37); SGPT/ALT 57 U/L (12-78); TOT PROT 6.7 g/dl (6.4-8.2)
[2016-10-22] MEDS ORDERED: METHADONE HCL 10 MG TABLET ONE (09:06)
[2016-10-22] MEDS ORDERED: METHADONE HCL 40 MG DISPERSABLE TABLET ONE (09:06)
[2016-10-22] MEDS ORDERED: METHADONE HCL 5 MG TABLET ONE (09:07)
[2016-10-22] MEDS: cefTRIAXone 2 GM/100 ML BAG (PRE-DOCKED) IVPB SCH (09:11)
[2016-10-22] MEDS: HEPARIN NA (PORCINE) 5,000 UNITS/ML 1ML VIAL SQ SCH ×2 (09:13→22:01)
[2016-10-22] MEDS: MIRTAZAPINE 15 MG TABLET (FP) PO SCH (09:14)
[2016-10-22] MEDS: PREGABALIN 50 MG CAPSULE PO SCH (09:15)
[2016-10-22] MEDS: METHADONE 80 MG, METHADONE 10 MG, METHADONE 5 MG PO SCH (09:15)
[2016-10-22] MEDS: MULTIVITAMINS (DAILY MVI) TABLET (FP) PO SCH (09:15)
[2016-10-22] MEDS: amLODIPine BESYLATE 5 MG TABLET (FP) PO SCH (09:15)
[2016-10-22] MEDS ORDERED: PT OWN MED DRAWER 7, Y5N ONE (09:20)
[2016-10-22] MEDS: EMTRICITAB/RILPIVIRINE/TENOFOV 1 EACH TABLET PO SCH (09:21)
--- NOTE | 2016-10-22 09:46 | PN ---
Teaching Attending Note Name of Resident: Bri Mars ATTENDING PHYSICIAN STATEMENT I saw and evaluated the patient. I reviewed the resident's note and discussed the case with the resident. I agree with the resident's findings and plan as documented. SUBJECTIVE: Patient had fever last evening. He has cough. OBJECTIVE: Vital Signs Period Temp Pulse Resp BP Sys/Forman Pulse Ox Last 24 Hr 98.0 F-101.5 F 76-85 17-18 140/76 98 HEART: S1S2, RRR LUNGS: Bilateral rhonchi ABDOMEN: Soft, non-tender, non-distended, normal BS EXTREMITIES: ASSESSMENT AND PLAN: This is a 55 year old man with a history of HIV, hepatitis C, cirrhosis, HTN, polysubstance abuse, depression who presented to the ER with fever, productive cough, and SOB. 1. Sepsis secondary to cellulitis of right 1st toe - Continue Rocephin, Vancomycin - Continue IV fluid - No evidence of pneumonia or acute intra-abdominal pathology - Blood cultures growing Strep - follow up identification/sensitivities - Repeat blood cultures in AM - Echo ordered 2. Acute hypoxic respiratory failure - Oxygen to maintain saturation > 90% 3. Acute metabolic encephalopathy secondary to sepsis - Improved 4. Acute kidney injury secondary to sepsis, rhabdomyolysis - Improving - Continue IV fluid - Monitor creatinine 5. Rhabdomyolysis - Improving - Contnue IV fluid - Monitor CK 6. Leukopenia secondary to sepsis 7. Thrombocytopenia - Acute, secondary to sepsis, on chronic 8. Hypertension - Continue Norvasc 9. HIV - Continue Complera 10. Hepatitis C 11. Cirrhosis 12. Depression - Continue Remeron, Trazodone 13. History of polysubstance abuse - Continue Methadone
[2016-10-22] MEDS: VANCOMYCIN 1,250 MG in DEXTROSE 5%-WATER - 250 ML IVPB SCH ×2 (12:42→22:58)
--- NOTE | 2016-10-22 14:05 | PN ---
Progress Note (short form) - Note Progress Note: eating today feels better Vital Signs Vital Signs Period Temp Pulse Resp BP Sys/Forman Pulse Ox Last 24 Hr 98.0 F-101.5 F 78-85 17-18 140-150/71-76 96-98 cor-rrr lungs clear abd soft,nt ext less erythema of left leg and big toe Microbiology 10/20/16 12:09 Blood - Peripheral Venous Blood Culture - Preliminary Alpha Hemolytic Streptococcus 10/20/16 12:09 Blood - Peripheral Venous Blood Culture - Preliminary Alpha Hemolytic Streptococcus 10/20/16 13:21 Urine - Urine Clean Catch Urine Culture - Final 10/20/16 20:30 Nasopharyngeal Swab Respiratory Virus Panel - Preliminary 10/20/16 17:44 Urine For Antigen Detection Legionella Antigen - Final 10/20/16 17:44 Urine For Antigen Detection Streptococcus pneumoniae Antigen (M - Final 10/20/16 20:30 Nasopharyngeal Swab Influenza Types A,B Antigen (TOÑO) - Final 10/20/16 20:30 Nasopharyngeal Swab - Final echo- suboptimal a/p sepsis syndrome strep bacteremia- still awaiting ID of blood culture f/u repeat blood cultures, continue vanco/rocephin rhabdomyolysis-improving continue hydration stable hiv treated hep c YVON-improving thrombocytopenia leukopenia Problem List - Problems (1) Sepsis syndrome Code(s): [id number] - (2) Bacteremia Code(s): R78.81 - BACTEREMIA (3) Cellulitis Code(s): L03.90 - CELLULITIS, UNSPECIFIED (4) YVON (acute kidney injury) Code(s): N17.9 - ACUTE KIDNEY FAILURE, UNSPECIFIED (5) Rhabdomyolysis Code(s): M62.82 - RHABDOMYOLYSIS (6) HIV disease Code(s): B20 - HUMAN IMMUNODEFICIENCY VIRUS [HIV] DISEASE (7) Hep C w/o coma, chronic Code(s): B18.2 - CHRONIC VIRAL HEPATITIS C (8) Altered mental status Code(s): R41.82 - ALTERED MENTAL STATUS, UNSPECIFIED Qualifiers: Altered mental status type: unspecified Qualified Code(s): R41.82 - Altered mental status, unspecified
[2016-10-22] MEDS: traZODone HCL 50 MG TABLET (FP) PO SCH (22:01)
[2016-10-22] MEDS: ACETAMINOPHEN 500 MG TABLET (FP) PO PRN (22:01)
[2016-10-22] MEDS: SODIUM CHLORIDE 1,000 ML IV SCH (22:54)
--- NOTE | 2016-10-22 23:01 | PN ---
Progress Note (short form) - Note Progress Note: called by nurse due to vanco trough 23; vanco next dose at 11pm was held, ordered vanco random trough for tomorrow. Be aware of what time next dose is for vanco, I didn't want to d/c it completely due to "medication falling off ". Check trough.
[2016-10-23] MEDS ORDERED: METHADONE HCL 10 MG TABLET ONE (05:49)
[2016-10-23] MEDS ORDERED: METHADONE HCL 5 MG TABLET ONE (05:49)
[2016-10-23] MEDS ORDERED: METHADONE HCL 40 MG DISPERSABLE TABLET ONE (05:49)
[2016-10-23] MEDS: METHADONE 80 MG, METHADONE 10 MG, METHADONE 5 MG PO SCH (05:50)
[2016-10-23 08:57] LABS: ALBUMIN 2.7 g/dl (3.4-5.0); ANION GAP 10 (8-16); CALCIUM 8.4 mg/dL (8.5-10.1); CO2 24 mmol/L (21-32); GLUCOSE,RANDOM 65 mg/dL (74-106)
[2016-10-23 09:01] LABS: ALK PHOS 113 U/L (45-117); COCKROFT - GAULT 101.96; CREATININE 1.2 mg/dL (0.7-1.3); SGPT/ALT 53 U/L (12-78); TOT PROT 6.5 g/dl (6.4-8.2)
[2016-10-23 09:03] LABS: SGOT/AST 182 U/L (15-37)
[2016-10-23 09:24] LABS: MCH 30.4 pg (25.7-33.7); MCHC 33.3 g/dl (32.0-35.9); MEAN CELL VOLUME 91.5 fl (80-96); MEAN PLT VOLUME 8.8 fl (7.5-11.1); PLATELET COUNT 57 K/MM3 (134-434); RDW 14.2 % (11.9-15.9); WHITE BLOOD COUNT 2.4 K/mm3 (4.0-10.0)
[2016-10-23] MEDS ORDERED: PT OWN MED DRAWER 7, Y5N ONE (10:24)
[2016-10-23] MEDS: PREGABALIN 50 MG CAPSULE PO SCH ×2 (10:28→10:40)
[2016-10-23] MEDS: EMTRICITAB/RILPIVIRINE/TENOFOV 1 EACH TABLET PO SCH (10:28)
[2016-10-23] MEDS: amLODIPine BESYLATE 5 MG TABLET (FP) PO SCH (10:28)
[2016-10-23] MEDS: MIRTAZAPINE 15 MG TABLET (FP) PO SCH (10:28)
[2016-10-23] MEDS: MULTIVITAMINS (DAILY MVI) TABLET (FP) PO SCH (10:28)
[2016-10-23] MEDS: cefTRIAXone 2 GM/100 ML BAG (PRE-DOCKED) IVPB SCH (10:29)
[2016-10-23] MEDS: HEPARIN NA (PORCINE) 5,000 UNITS/ML 1ML VIAL SQ SCH ×2 (10:29→21:16)
--- NOTE | 2016-10-23 10:33 | PN ---
Progress Note (short form) - Note Progress Note: eating today feels better no complaints Vital Signs Period Temp Pulse Resp BP Sys/Forman Pulse Ox Last 24 Hr 98.4 F-100.0 F 66-93 18-20 122-148/68-92 98 cor-rrr lungs clear abd soft,nt ext trace edema lft leg Microbiology 10/20/16 12:09 Blood - Peripheral Venous Blood Culture - Preliminary Streptococcus Species 10/22/16 07:00 Blood - Peripheral Venous Blood Culture - Preliminary NO GROWTH OBTAINED AFTER 24 HOURS, INCUBATION TO CONTINUE FOR 4 DAYS. 10/22/16 07:00 Blood - Peripheral Venous Blood Culture - Preliminary NO GROWTH OBTAINED AFTER 24 HOURS, INCUBATION TO CONTINUE FOR 4 DAYS. 10/20/16 12:09 Blood - Peripheral Venous Blood Culture - Preliminary Alpha Hemolytic Streptococcus 10/20/16 13:21 Urine - Urine Clean Catch Urine Culture - Final 10/20/16 20:30 Nasopharyngeal Swab Respiratory Virus Panel - Preliminary 10/20/16 17:44 Urine For Antigen Detection Legionella Antigen - Final 10/20/16 17:44 Urine For Antigen Detection Streptococcus pneumoniae Antigen (M - Final 10/20/16 20:30 Nasopharyngeal Swab Influenza Types A,B Antigen (TOÑO) - Final 10/20/16 20:30 Nasopharyngeal Swab - Final Laboratory Tests 10/21/16 10/22/16 10/23/16 06:00 21:30 09:24 Random Vancomycin 6.857 9.448 Vancomycin Pre-Dose 23.318 H* echo- suboptimal a/p sepsis syndrome strep bacteremia- still awaiting ID and sensitivity of blood culture f/u repeat blood cultures, continue vanco/rocephin rhabdomyolysis-improving continue hydration stable hiv treated hep c YVON-improving thrombocytopenia leukopenia high vancomycin trough change to qday dosing Problem List - Problems (1) Sepsis syndrome Code(s): [id number] - (2) Bacteremia Code(s): R78.81 - BACTEREMIA (3) Cellulitis Code(s): L03.90 - CELLULITIS, UNSPECIFIED (4) YVON (acute kidney injury) Code(s): N17.9 - ACUTE KIDNEY FAILURE, UNSPECIFIED (5) Rhabdomyolysis Code(s): M62.82 - RHABDOMYOLYSIS (6) HIV disease Code(s): B20 - HUMAN IMMUNODEFICIENCY VIRUS [HIV] DISEASE (7) Hep C w/o coma, chronic Code(s): B18.2 - CHRONIC VIRAL HEPATITIS C (8) Altered mental status Code(s): R41.82 - ALTERED MENTAL STATUS, UNSPECIFIED Qualifiers: Altered mental status type: unspecified Qualified Code(s): R41.82 - Altered mental status, unspecified
[2016-10-23] MEDS: VANCOMYCIN 1,500 MG in DEXTROSE 5%-WATER - 500 ML IVPB SCH (12:56)
--- NOTE | 2016-10-23 17:29 | PN ---
Physical Exam: SUBJECTIVE: Patient seen and examined. No complaints. OBJECTIVE: Vital Signs Period Temp Pulse Resp BP Sys/Forman Pulse Ox Last 24 Hr 98.4 F-100.0 F 66-93 18-20 107-144/66-92 98 GENERAL: The patient is awake, alert, and fully oriented, in no acute distress. LUNGS: Breath sounds equal, clear to auscultation bilaterally, no wheezes, no crackles, no accessory muscle use. HEART: Regular rate and rhythm, S1, S2 without murmur, rub or gallop. ABDOMEN: Soft, nontender, nondistended, normoactive bowel sounds, no guarding, no rebound, no hepatosplenomegaly, no masses. EXTREMITIES: 2+ pulses, warm, well-perfused, trace edema. Laboratory Results - last 24 hr 10/22/16 10/23/16 10/23/16 21:30 07:20 07:20 WBC 2.4 L RBC 4.07 Hgb 12.4 Hct 37.2 MCV 91.5 MCHC 33.3 RDW 14.2 Plt Count 57 L MPV 8.8 Sodium 136 Potassium 4.0 Chloride 102 Carbon Dioxide 24 Anion Gap 10 BUN 12 Creatinine 1.2 Creat Clearance w eGFR > 60 Random Glucose 65 L Calcium 8.4 L Total Bilirubin 1.0 AST 182 H ALT 53 Alkaline Phosphatase 113 Total Protein 6.5 Albumin 2.7 L Random Vancomycin Vancomycin Pre-Dose 23.318 H* 10/23/16 09:24 WBC RBC Hgb Hct MCV MCHC RDW Plt Count MPV Sodium Potassium Chloride Carbon Dioxide Anion Gap BUN Creatinine Creat Clearance w eGFR Random Glucose Calcium Total Bilirubin AST ALT Alkaline Phosphatase Total Protein Albumin Random Vancomycin 9.448 Vancomycin Pre-Dose Active Medications Generic Name Dose Route Start Last Admin Trade Name Freq PRN Reason Stop Dose Admin Acetaminophen 500 mg 10/21/16 19:00 10/22/16 22:01 Tylenol - PO 500 mg Q6H PRN Administration FEVER OR PAIN Amlodipine Besylate 5 mg 10/21/16 10:00 10/23/16 10:28 Norvasc - PO 5 mg DAILY HAN Administration Ceftriaxone Sodium 2 gm 10/21/16 10:00 10/23/16 10:29 Rocephin 2gm Ivpb (Pre-Docked) IVPB 2 gm DAILY HAN Administration Protocol Emtricitabine/Rilpivirine/Tenofovir 1 each 10/21/16 10:00 10/23/16 10:28 Complera - PO 1 each DAILY HAN Administration Heparin Sodium (Porcine) 5,000 unit 10/20/16 22:00 10/23/16 10:29 Heparin - SQ 5,000 unit BID HAN Administration Sodium Chloride 1,000 mls @ 75 mls/hr 10/20/16 17:00 10/22/16 22:54 Normal Saline - IV 75 mls/hr ASDIR HAN Administration Vancomycin HCl 1,500 mg/ 500 mls @ 250 mls/hr 10/23/16 12:00 10/23/16 12:56 Dextrose IVPB 250 mls/hr DAILY@1200 HAN Administration Protocol Methadone HCl 80 mg/ Methadone 95 mg 10/22/16 08:00 10/23/16 05:50 HCl 10 mg/ Methadone HCl 5 mg PO 95 mg DAILY@0600 HAN Administration Mirtazapine 15 mg 10/21/16 10:00 10/23/16 10:28 Remeron - PO 15 mg DAILY HAN Administration Multivitamins/Minerals/Vitamin C 1 tab 10/21/16 10:00 10/23/16 10:28 Tab-A-Vit - PO 1 tab DAILY HAN Administration Pregabalin 50 mg 10/21/16 10:00 10/23/16 10:40 Lyrica - PO Not Given DAILY HAN Trazodone HCl 100 mg 10/20/16 22:00 10/22/16 22:01 Desyrel - PO 100 mg HS AHN Administration ASSESSMENT/PLAN: This is a 55 year old man with a history of HIV, hepatitis C, cirrhosis, HTN, polysubstance abuse, depression who presented to the ER with fever, productive cough, and SOB. 1. Sepsis secondary to cellulitis of right 1st toe - Continue Rocephin, Vancomycin (dose adjusted for trough) - Continue IV fluid - No evidence of pneumonia or acute intra-abdominal pathology - Blood cultures growing Strep - follow up identification/sensitivities - Repeat blood cultures negative after 24 hrs - Echo suboptimal, shows normal LVEF, mild MR, mild TR, RVSP 30-40 mmHg, with TV and PV not well visualized 2. Acute hypoxic respiratory failure - Oxygen to maintain saturation > 90% 3. Acute metabolic encephalopathy secondary to sepsis - Improved 4. Acute kidney injury secondary to sepsis, rhabdomyolysis - Improved 5. Rhabdomyolysis - Improving - Contnue IV fluid - Monitor CK 6. Leukopenia secondary to sepsis - WBC stable 7. Thrombocytopenia - Acute, secondary to sepsis, on chronic - Platelets stable 8. Hypertension - Continue Norvasc 9. HIV - Continue Complera 10. Hepatitis C - s/p treatment 11. Cirrhosis 12. Depression - Continue Remeron, Trazodone 13. History of polysubstance abuse - Continue Methadone Visit type - Emergency Visit Emergency Visit: Yes ED Registration Date: 10/20/16 Care time: The patient presented to the Emergency Department on the above date and was hospitalized for further evaluation of their emergent condition. - New Patient This patient is new to me today: No - Critical Care Critical Care patient: No - Discharge Referral Referred to [facility] No
[2016-10-23] MEDS: traZODone HCL 50 MG TABLET (FP) PO SCH (21:16)
[2016-10-23] MEDS: SODIUM CHLORIDE 1,000 ML IV SCH (21:22)
[2016-10-24] MEDS ORDERED: METHADONE HCL 10 MG TABLET ONE (05:32)
[2016-10-24] MEDS ORDERED: METHADONE HCL 40 MG DISPERSABLE TABLET ONE (05:33)
[2016-10-24] MEDS ORDERED: METHADONE HCL 5 MG TABLET ONE (05:33)
[2016-10-24] MEDS: METHADONE 80 MG, METHADONE 10 MG, METHADONE 5 MG PO SCH (05:55)
[2016-10-24] MEDS: ACETAMINOPHEN 500 MG TABLET (FP) PO PRN (06:15)
[2016-10-24 07:33] LABS: BASOPHIL 0.3 % (0-2.0); EOSINOPHIL 2.1 % (0-4.5); MCH 30.7 pg (25.7-33.7); MCHC 33.5 g/dl (32.0-35.9); MEAN CELL VOLUME 91.5 fl (80-96); MEAN PLT VOLUME 8.9 fl (7.5-11.1); NEUTROPHILS 35.5 % (42.8-82.8); PLATELET COUNT 62 K/MM3 (134-434); RDW 14.3 % (11.9-15.9); WHITE BLOOD COUNT 3.5 K/mm3 (4.0-10.0)
[2016-10-24 07:59] LABS: CALCIUM 8.5 mg/dL (8.5-10.1); COCKROFT - GAULT 101.96; CREATININE 1.2 mg/dL (0.7-1.3)
--- NOTE | 2016-10-24 09:00 | PN ---
Physical Exam: SUBJECTIVE: Patient seen and examined by me at bedside. Overnight events noted. Patient continues to have intermittent fevers with Tmax of 101.2 last night. Patient feels a little weak and tired today but is overall feeling better from when he first came in. Otherwise, patient denies nausea, vomiting, chest pain, shortness of breath, headache, dizziness. OBJECTIVE: Vital Signs Period Temp Pulse Resp BP Sys/Forman Pulse Ox Last 24 Hr 98.4 F-101.2 F 68-76 18-18 107-130/59-72 97-97 GENERAL: Awake, alert, in no acute distress. LUNGS: Rhonchi throughout lung bases with no wheezing. HEART: Regular rate and rhythm, normal S1 and S2 without murmur, rub or gallop. ABDOMEN: Soft, protruding and distended, nontender. Normoactive bowel sounds LOWER EXTREMITIES: Erythema and tenderness of bilateral legs with erythema of left hallux. Trace edema of bilateral legs NEUROLOGICAL: Stuttered speech. Motor strength 5/5 throughout. Sensory intact SKIN: Erythema of bilateral lower extremities with no abrasions or drainage Microbiology 10/22/16 07:00 Blood - Peripheral Venous Blood Culture - Preliminary NO GROWTH OBTAINED AFTER 48 HOURS, INCUBATION TO CONTINUE FOR 3 DAYS. 10/22/16 07:00 Blood - Peripheral Venous Blood Culture - Preliminary NO GROWTH OBTAINED AFTER 48 HOURS, INCUBATION TO CONTINUE FOR 3 DAYS. 10/20/16 12:09 Blood - Peripheral Venous Blood Culture - Preliminary Group D Strep Or Entero Coccus 10/20/16 12:09 Blood - Peripheral Venous Blood Culture - Preliminary Alpha Hemolytic Streptococcus 10/20/16 13:21 Urine - Urine Clean Catch Urine Culture - Final 10/20/16 20:30 Nasopharyngeal Swab Respiratory Virus Panel - Preliminary 10/20/16 17:44 Urine For Antigen Detection Legionella Antigen - Final 10/20/16 17:44 Urine For Antigen Detection Streptococcus pneumoniae Antigen (M - Final 10/20/16 20:30 Nasopharyngeal Swab Influenza Types A,B Antigen (TOÑO) - Final 10/20/16 20:30 Nasopharyngeal Swab - Final Laboratory Results - last 24 hr 10/23/16 10/23/16 10/23/16 07:20 07:20 09:24 WBC 2.4 L RBC 4.07 Hgb 12.4 Hct 37.2 MCV 91.5 MCHC 33.3 RDW 14.2 Plt Count 57 L MPV 8.8 Neutrophils % Lymphocytes % Monocytes % Eosinophils % Basophils % Sodium 136 Potassium 4.0 Chloride 102 Carbon Dioxide 24 Anion Gap 10 BUN 12 Creatinine 1.2 Creat Clearance w eGFR > 60 Random Glucose 65 L Calcium 8.4 L Total Bilirubin 1.0 AST 182 H ALT 53 Alkaline Phosphatase 113 Creatine Kinase CK-MB (CK-2) Total Protein 6.5 Albumin 2.7 L Random Vancomycin 9.448 10/24/16 10/24/16 06:10 06:10 WBC 3.5 L D RBC 4.09 Hgb 12.5 Hct 37.4 MCV 91.5 MCHC 33.5 RDW 14.3 Plt Count 62 L MPV 8.9 Neutrophils % 35.5 L D Lymphocytes % 50.7 H D Monocytes % 11.4 H Eosinophils % 2.1 Basophils % 0.3 Sodium 137 Potassium 3.7 Chloride 101 Carbon Dioxide 26 Anion Gap 10 BUN 11 Creatinine 1.2 Creat Clearance w eGFR Random Glucose 75 Calcium 8.5 Total Bilirubin AST ALT Alkaline Phosphatase Creatine Kinase 688 H CK-MB (CK-2) 12.280 H Total Protein Albumin Random Vancomycin Active Medications Generic Name Dose Route Start Last Admin Trade Name Freq PRN Reason Stop Dose Admin Acetaminophen 500 mg 10/21/16 19:00 10/24/16 06:15 Tylenol - PO 500 mg Q6H PRN Administration FEVER OR PAIN Amlodipine Besylate 5 mg 10/21/16 10:00 10/23/16 10:28 Norvasc - PO 5 mg DAILY HAN Administration Ceftriaxone Sodium 2 gm 10/21/16 10:00 10/23/16 10:29 Rocephin 2gm Ivpb (Pre-Docked) IVPB 2 gm DAILY HAN Administration Protocol Emtricitabine/Rilpivirine/Tenofovir 1 each 10/21/16 10:00 10/23/16 10:28 Complera - PO 1 each DAILY HAN Administration Heparin Sodium (Porcine) 5,000 unit 10/20/16 22:00 10/23/16 21:16 Heparin - SQ 5,000 unit BID HAN Administration Sodium Chloride 1,000 mls @ 75 mls/hr 10/20/16 17:00 10/23/16 21:22 Normal Saline - IV 75 mls/hr ASDIR HAN Administration Vancomycin HCl 1,500 mg/ 500 mls @ 250 mls/hr 10/23/16 12:00 10/23/16 12:56 Dextrose IVPB 250 mls/hr DAILY@1200 HAN Administration Protocol Methadone HCl 80 mg/ Methadone 95 mg 10/22/16 08:00 10/24/16 05:55 HCl 10 mg/ Methadone HCl 5 mg PO 95 mg DAILY@0600 HAN Administration Mirtazapine 15 mg 10/21/16 10:00 10/23/16 10:28 Remeron - PO 15 mg DAILY HAN Administration Multivitamins/Minerals/Vitamin C 1 tab 10/21/16 10:00 10/23/16 10:28 Tab-A-Vit - PO 1 tab DAILY HAN Administration Pregabalin 50 mg 10/21/16 10:00 10/23/16 10:40 Lyrica - PO Not Given DAILY HAN Trazodone HCl 100 mg 10/20/16 22:00 10/23/16 21:16 Desyrel - PO 100 mg HS HAN Administration IMAGES Chest X-Ray (10/20/16): Cardiomegaly with no signs of pneumonia, atelectasis, pneumothorax, or pleural effusions. No signs of lung mass. CT Head (10/20/16): No acute hemorrhage or infarction. Abdomen/Pelvic/Chest CT (10/20/16): Overall low lung volumes with mosaic lung attenuation is nonspecific and could be secondary to imaging in the expiratory phase or could be secondary to an element of air trapping seen in airway disease. Correlate with clinical history. No focal consolidation or mass seen. 3 to 4 mm right lower lobe groundglass nodule. Follow-up CT scan in 12 months is suggested. Dilated pulmonary trunk at 3.9 cm suggestive of an element of pulmonary hypertension. Bilateral gynecomastia. Marked splenomegaly with splenorenal shunting. This is of unclear etiology. Appendix not visualized however there are no indirect findings of acute appendicitis. Status post cholecystectomy. Duplex of Bilateral Lower Extremities (10/20/16): There is no evidence of deep venous thromboses in both lower extremities. Chest X-Ray (10/22/16): No acute pathology ASSESSMENT/PLAN: Patient is a 55 year old male with a PMHx of treated Hepatitis C, Stable HIV on HAART with last CD4 667 and viral load <20copies, HTN, Polysubstance abuse on Methadone who was brought in by his PCP for fever, shortness of breath, and productive cough. Patient was found to be septic and admitted for further monitoring and management. Sepsis Secondary to possible Cellulitis vs. Pneumonia- Improving -Blood cultures positive for Equinos -Second set of blood cultures NGTD -Febrile overnight with Tmax 101.2 -Repeat Chest x-ray negative for acute pathology -Continue Vancomycin 1500mg IV daily day #5. -Continue Ceftriaxone 2gm IV daily Day #5 -Continue IV NS @75mls/hr -Cardiac consult placed to rule out endocarditis and for MIKE -Will need a colonoscopy. -ID on board. Will need to change antibiotics. -Podiatry consult placed Acute metabolic Encephalopathy- Resolved -Likely secondary to sepsis vs. Drug intoxication -Patient has history of alcohol and IV drug abuse -Ammonia level normal -Urine toxicology negative except for methadone -Alcohol level negative -Head CT negative RLQ Abdominal Pain- Chronic and Improved -CT Abdo/Pelvis negative for acute pathology Acute Kidney Injury- Resolved -Possibly secondary to rhabdomyolysis -Today 1.2 -Baseline 1.1 (last one 05/2016) -Continue IV NS @75mls/hr -Continue to monitor BMP Rhabdomyolysis-Improving -Possibly secondary to fall -CPK 688 -Creatinine 1.2 -Continue IV NS @75mls/hr -Continue to monitor CPK Thrombocytopenia and Neutropenia- Chronic and stable -Likely chronic -Today's WBC 3.5 -Today's Platelets 62 -Previous level on 05/2016 was 129 -Transfuse if levels <10,000 or <30,000 if actively bleeding HIV- Chronic and Stable -Stable with last CD 4 667 and last Viral load <20 copies -Continue with Tenof Df daily Polysubstance Abuse -Denies any recent use -Alcohol level negative -Urine toxicology negative -Continue with Methadone 95mg daily HTN- Controlled -Controlled with Norvasc 5mg daily -Continue to monitor BP Depression -Continue with Remeron 15mg daily -Continue Trazadone 100mg HS F/E/N -IV NS @75mls/hr -Electrolytes wnl -Sodium controlled diet Prophylaxis -Heparin 5000 units BID SQ for DVT Disposition -Awaiting culture sensitivities. Visit type - Emergency Visit Emergency Visit: Yes ED Registration Date: 10/20/16 Care time: The patient presented to the Emergency Department on the above date and was hospitalized for further evaluation of their emergent condition. - New Patient This patient is new to me today: No - Critical Care Critical Care patient: No
[2016-10-24] MEDS ORDERED: PT OWN MED DRAWER 7, Y5N ONE ×2 (09:10→21:08)
[2016-10-24] MEDS: cefTRIAXone 2 GM/100 ML BAG (PRE-DOCKED) IVPB SCH (09:12)
[2016-10-24] MEDS: HEPARIN NA (PORCINE) 5,000 UNITS/ML 1ML VIAL SQ SCH ×2 (09:13→21:22)
[2016-10-24] MEDS: EMTRICITAB/RILPIVIRINE/TENOFOV 1 EACH TABLET PO SCH (09:13)
[2016-10-24] MEDS: amLODIPine BESYLATE 5 MG TABLET (FP) PO SCH (09:13)
[2016-10-24] MEDS: PREGABALIN 50 MG CAPSULE PO SCH (09:13)
[2016-10-24] MEDS: MIRTAZAPINE 15 MG TABLET (FP) PO SCH (09:13)
[2016-10-24] MEDS: MULTIVITAMINS (DAILY MVI) TABLET (FP) PO SCH (09:13)
[2016-10-24] MEDS: VANCOMYCIN 1,500 MG in DEXTROSE 5%-WATER - 500 ML IVPB SCH (11:58)
--- NOTE | 2016-10-24 13:13 | PN ---
Teaching Attending Note Name of Resident: Bri Mars ATTENDING PHYSICIAN STATEMENT I saw and evaluated the patient. I reviewed the resident's note and discussed the case with the resident. I agree with the resident's findings and plan as documented. SUBJECTIVE: Had fever overnight. Currently has no complaints. OBJECTIVE: Vital Signs Period Temp Pulse Resp BP Sys/Forman Pulse Ox Last 24 Hr 98.4 F-101.2 F 68-76 18-18 107-130/59-72 97 HEART: S1S2, RRR LUNGS Clear ABDOMEN: Soft, non-tender, non-distended, normal BS EXTREMITIES: No edema ASSESSMENT AND PLAN: This is a 55 year old man with a history of HIV, hepatitis C, cirrhosis, HTN, polysubstance abuse, depression who presented to the ER with fever, productive cough, and SOB. 1. Sepsis secondary to cellulitis of left 1st toe - Continue Rocephin, Vancomycin - Continue IV fluid - No evidence of pneumonia or acute intra-abdominal pathology - Blood cultures growing Strep equinis - Repeat blood cultures negative after 48 hrs - Echo suboptimal, shows normal LVEF, mild MR, mild TR, RVSP 30-40 mmHg, with TV and PV not well visualized 2. Acute hypoxic respiratory failure - Resolved 3. Acute metabolic encephalopathy secondary to sepsis - Improved 4. Acute kidney injury secondary to sepsis, rhabdomyolysis - Improved 5. Rhabdomyolysis - Resolved 6. Leukopenia secondary to sepsis - WBC improving 7. Thrombocytopenia - Acute, secondary to sepsis, on chronic - Platelets improving 8. Hypertension - Continue Norvasc 9. HIV - Continue Complera 10. Hepatitis C - s/p treatment 11. Cirrhosis 12. Depression - Continue Remeron, Trazodone 13. History of polysubstance abuse - Continue Methadone
--- NOTE | 2016-10-24 14:34 | PN ---
Progress Note, Physician Chief Complaint: ID Patient describes brief period of slurred speech with fever and chills Vancomycin Ceftriaxone Organism is Strep Equinus part of Enterococcus group with Strep Bovis Today 101 .2 Speech intact oriented Also says he had redness and swelling of the foot left side - Current Medication List Current Medications: Active Medications Acetaminophen (Tylenol -) 500 mg PO Q6H PRN PRN Reason: FEVER OR PAIN Last Admin: 10/24/16 06:15 Dose: 500 mg Amlodipine Besylate (Norvasc -) 5 mg PO DAILY [facility] Last Admin: 10/24/16 09:13 Dose: 5 mg Ceftriaxone Sodium (Rocephin 2gm Ivpb (Pre-Docked)) 2 gm IVPB DAILY HAN PRN Reason: Protocol Last Admin: 10/24/16 09:12 Dose: 2 gm Emtricitabine/Rilpivirine/Tenofovir (Complera -) 1 each PO DAILY [facility] Last Admin: 10/24/16 09:13 Dose: 1 each Heparin Sodium (Porcine) (Heparin -) 5,000 unit SQ BID [facility] Last Admin: 10/24/16 09:13 Dose: 5,000 unit Sodium Chloride (Normal Saline -) 1,000 mls @ 75 mls/hr IV ASDIR [facility] Last Admin: 10/23/16 21:22 Dose: 75 mls/hr Vancomycin HCl 1,500 mg/ (Dextrose) 500 mls @ 250 mls/hr IVPB DAILY@1200 HAN PRN Reason: Protocol Last Admin: 10/24/16 11:58 Dose: 250 mls/hr Methadone HCl 80 mg/ Methadone (HCl 10 mg/ Methadone HCl 5 mg) 95 mg PO DAILY@ 0600 [facility] Last Admin: 10/24/16 05:55 Dose: 95 mg Mirtazapine (Remeron -) 15 mg PO DAILY [facility] Last Admin: 10/24/16 09:13 Dose: 15 mg Multivitamins/Minerals/Vitamin C (Tab-A-Vit -) 1 tab PO DAILY [facility] Last Admin: 10/24/16 09:13 Dose: 1 tab Trazodone HCl (Desyrel -) 100 mg PO HS [facility] Last Admin: 10/23/16 21:16 Dose: 100 mg - Objective Vital Signs: Vital Signs Temperature 98.4 F 10/24/16 08:00 Pulse Rate 68 10/24/16 08:00 Respiratory Rate 18 10/24/16 08:00 Blood Pressure 124/72 10/24/16 08:00 O2 Sat by Pulse Oximetry (%) 97 10/23/16 20:41 Constitutional: Yes: Well Nourished, No Distress Cardiovascular: Yes: Regular Rate and Rhythm, S1, S2. No: Murmur Respiratory: Yes: WNL, Regular, CTA Bilaterally Gastrointestinal: Yes: WNL, Normal Bowel Sounds, Soft. No: Tenderness Labs: CBC, BMP 10/24/16 06:10 10/24/16 06:10 INR, PTT INR 1.53 (0.82-1.09) H D 10/20/16 12:09 Assessment/Plan Microbiology 10/20/16 17:44 Urine For Antigen Detection Legionella Antigen - Final 10/20/16 17:44 Urine For Antigen Detection Streptococcus pneumoniae Antigen (M - Final 10/22/16 07:00 Blood - Peripheral Venous Blood Culture - Preliminary NO GROWTH OBTAINED AFTER 48 HOURS, INCUBATION TO CONTINUE FOR 3 DAYS. 10/22/16 07:00 Blood - Peripheral Venous Blood Culture - Preliminary NO GROWTH OBTAINED AFTER 48 HOURS, INCUBATION TO CONTINUE FOR 3 DAYS. 10/20/16 12:09 Blood - Peripheral Venous Blood Culture - Preliminary Streptococcus Equinus 2 Streptococcus Equinus 2#2 10/20/16 12:09 Blood - Peripheral Venous Blood Culture - Preliminary Alpha Hemolytic Streptococcus Laboratory Tests 10/22/16 10/22/16 10/22/16 07:00 07:00 21:30 WBC Hgb Plt Count ESR 30 H C-Reactive Protein 10.8 H Vancomycin Pre-Dose 23.318 H* 10/24/16 06:10 WBC 3.5 L D Hgb 12.5 Plt Count 62 L ESR C-Reactive Protein Vancomycin Pre-Dose Assessment Strep Equinus bacteremia source unclear ? Skin GI tract. History of slurred speed according to patient who is reliable This resolved Question of endocarditis is raised Plan I would Do MIKE here GI consultation for scheduling colonoscopy ? GI lesion Change to Ampicillin Duration of therapy to be determined possible 4 weeks
--- NOTE | 2016-10-24 14:43 | PN ---
Progress Note (short form) - Note Progress Note: Thank you for the consult. Will attend patient today
[2016-10-24] MEDS ORDERED: AMPICILLIN - 100 ML IVPB SCH (14:45)
--- NOTE | 2016-10-24 15:41 | CON.CARD ---
Consult Consult Specialty:: Cardiology Referred by:: Hospitalist Medicine Reason for Consultation:: Bacteremia, r/o endocarditis - History of Present Illness Chief Complaint: Fevers and chills History of Present Illness: 55 year old man with stable HIV (viral load undectected, cd4 667), treated hep C , HTN, opiate dependence presented with fever and myalgia, thrombocytopenia referable to enterococcus bacteremia, TTE unrevealing but technically limited study. - History Source History Provided By: Patient Limitations to Obtaining History: No Limitations - Past Medical History Cardio/Vascular: Yes: HTN Hepatobiliary: Yes: Hepatitis C Infectious Disease: Yes: HIV Psych: Yes: Addictions Dermatology: Yes: Cellulitis - Alcohol/Substance Use Hx Alcohol Use: Yes History of Substance Use: reports: Heroin - Smoking History Smoking history: Current every day smoker Have you smoked in the past 12 months: Yes Aproximately how many cigarettes per day: 5 - Social History ADL: Independent Home Medications - Allergies Allergies/Adverse Reactions: Allergies Allergy/AdvReac Type Severity Reaction Status Date / Time No Known Allergies Allergy Verified 10/20/16 11:45 - Home Medications Home Medications: Ambulatory Orders Methadone [Dolophine -] 65 mg PO DAILY 04/15/15 Mirtazapine [Remeron -] 15 mg PO DAILY #30 tablet 10/05/16 Trazodone HCl 100 mg PO HS #60 tablet 10/05/16 Amlodipine Besylate [Norvasc -] 5 mg PO DAILY #30 tablet 10/20/16 Ciprofloxacin [Cipro (Restricted To Id)] 500 mg PO Q12H #20 tablet 10/20/16 Emtricita/Rilpivirine/Tenof Df [Complera Tablet] 1 each PO DAILY #30 tablet 12/29 Ibuprofen 800 mg PO Q8H #10 tablet 10/20/16 Multivitamins [Multivit ([facility] Formulary)] 1 tab PO DAILY #30 tab 10/20/16 Terbinafine HCl [Lamisil] 250 mg PO DAILY #30 tablet 10/20/16 Vit B6/Me-Thfolate/Me-B12/Ala [Podiapn Capsule] 1 cap PO DAILY #30 capsule 10/20 Review of Systems - Review of Systems Constitutional: reports: Chills, Fever Musculoskeletal: reports: Muscle Pain Vital Signs: Vital Signs Temperature 98.4 F 10/24/16 14:31 Pulse Rate 65 10/24/16 14:31 Respiratory Rate 18 10/24/16 08:00 Blood Pressure 118/68 10/24/16 14:31 O2 Sat by Pulse Oximetry (%) 97 10/23/16 20:41 Constitutional: Yes: No Distress, Calm Neck: Yes: Supple Respiratory: Yes: Regular, CTA Bilaterally Gastrointestinal: Yes: Normal Bowel Sounds, Soft Cardiovascular: Yes: Regular Rate and Rhythm JVD: No Carotid Bruit: No Heart Sounds: Yes: S1, S2 Edema: No - Other Data Labs, Other Data: CBC, BMP 10/24/16 06:10 10/24/16 06:10 INR, PTT INR 1.53 (0.82-1.09) H D 10/20/16 12:09 NSR @ 92 LAE Echo: Report Reviewed Ejection Fraction %: LVEF > or = 40 % Problem List - Problems (1) Bacteremia Code(s): R78.81 - BACTEREMIA (2) Sepsis syndrome Code(s): HLO4290 - (3) HIV disease Code(s): B20 - HUMAN IMMUNODEFICIENCY VIRUS [HIV] DISEASE (4) Hep C w/o coma, chronic Code(s): B18.2 - CHRONIC VIRAL HEPATITIS C (5) Hypertension Code(s): I10 - ESSENTIAL (PRIMARY) HYPERTENSION Qualifiers: Hypertension type: essential hypertension Qualified Code(s): I10 - Essential (primary) hypertension (6) Thrombocytopenia Code(s): D69.6 - THROMBOCYTOPENIA, UNSPECIFIED Assessment/Plan 10/21/2016 TDS, Grossly normal LV fxn, mild MR and TR 1. Strep equinis bacteremia with cellulitis of left 1st toe r/o endocarditis, surveillance cx negative 2. Leukopenia and thrombocytopenia referable to sepsis 3. HIV on HAART, post Hep C treatment 4. Polysubstance abuse 5. HTN P:1, Continue ampicillin course per ID 2. MIKE in AM to exclude endocarditis and assist in determining duration of therapy 3. Continue Norvasc 5 qd 4. DVT prophylaxis 5. Thank you for consultative opportunity
[2016-10-24] MEDS: AMPICILLIN - 2 GM in SODIUM CHLORIDE 100 ML IVPB SCH ×2 (17:43→21:23)
[2016-10-24] MEDS: SODIUM CHLORIDE 1,000 ML IV SCH ×2 (17:43→17:49)
--- NOTE | 2016-10-24 18:02 | PN ---
Progress Note (short form) - Note Progress Note: Consult dictated. 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 Probes deeply, concern for possible osseous infection.
[2016-10-24] MEDS: traZODone HCL 50 MG TABLET (FP) PO SCH (21:22)
--- NOTE | 2016-10-24 23:37 | CONS ---
DATE OF CONSULTATION: 10/24/2016 PRESENTING PROBLEM: Patient with a localized cellulitis to the left great toe. This examiner called in to evaluate and treat said localized cellulitis. Patient declares that approximately 6 weeks ago or so (early September) to take care of a hyperkeratotic lesion on the distal pulp of the left great toe, the patient used a audit tech knife to try to debride it. He says that he has been having trouble with it ever since. He noticed that the toe became swollen and tender. PAST AND PRESENT MEDICAL HISTORY: Significant for acute kidney injury. Admitted with altered mental status and bacteremia, sepsis. Patient has problems with essential hypertension, pneumonia, rhabdomyolysis. Patient is a former IV drug abuser and has thrombocytopenia and is HIV positive. Patient also has a history of chronic hepatic encephalopathy, hepatitis C, low back pain, acute urinary tract infection. ACTIVE MEDICATIONS: Include acetaminophen, amlodipine besylate, ampicillin, Complera for HIV, heparin, methadone maintenance, Remeron, multivitamins, mupirocin cream , and trazodone. ALLERGIC HISTORY: No known drug allergies. SOCIAL HISTORY: History of substance abuse, alcohol abuse, and is a current smoker. PHYSICAL EXAMINATION: General: A very pleasant male. Oriented to time and space, well nourished. Extremities: Pedal pulses are palpable. Microcirculation return is immediate. Patient has evidence of chronic venous hypertension with brawny leg edema, unclear if this was due to use of leg veins as conduit for intravenous drug abuse. Examination of the left great toe reveals a hyperkeratotic lesion on the distal pulp of the toe. There seems to be dried evidence of hemorrhage. Debridement of the hyperkeratotic lesion revealed purulent discharge. After debridement of the hyperkeratotic lesion, a bedside incision and drainage was performed with probing to deep structures. Neurologic: Status is intact. Patient has sensitivity to light touch. ASSESSMENT: Deep subfacial abscess, possible osteomyelitis. PLAN: Patient was able to tolerate the incision and drainage at bedside without anesthesia. There was probing to the fascia, possibly to bone at the left great toe. Concern for possible osteomyelitis, given the timeline of the patient performing "bathroom surgery" with a audit tech knife, will order radiographs to rule out a possible osteomyelitis and will continue to follow the patient. The patient may need serial debridements and wound care. DR EDU PALOMINO RT/[id number] MTDD
[2016-10-25] MEDS ORDERED: PT OWN MED DRAWER 7, Y5N ONE ×4 (01:37→21:36)
[2016-10-25] MEDS: AMPICILLIN - 2 GM in SODIUM CHLORIDE 100 ML IVPB SCH ×6 (02:03→21:39)
[2016-10-25] MEDS ORDERED: METHADONE HCL 10 MG TABLET ONE (06:00)
[2016-10-25] MEDS ORDERED: METHADONE HCL 40 MG DISPERSABLE TABLET ONE (06:00)
[2016-10-25] MEDS ORDERED: METHADONE HCL 5 MG TABLET ONE (06:01)
[2016-10-25] MEDS: METHADONE 80 MG, METHADONE 10 MG, METHADONE 5 MG PO SCH (06:04)
[2016-10-25 07:52] LABS: MCH 30.2 pg (25.7-33.7); MCHC 33.3 g/dl (32.0-35.9); MEAN CELL VOLUME 90.5 fl (80-96); MEAN PLT VOLUME 9.1 fl (7.5-11.1); PLATELET COUNT 77 K/MM3 (134-434); RDW 14.2 % (11.9-15.9); WHITE BLOOD COUNT 3.6 K/mm3 (4.0-10.0)
[2016-10-25 08:24] LABS: CALCIUM 8.7 mg/dL (8.5-10.1); COCKROFT - GAULT 122.35
[2016-10-25] MEDS: EMTRICITAB/RILPIVIRINE/TENOFOV 1 EACH TABLET PO SCH (09:15)
[2016-10-25] MEDS: MULTIVITAMINS (DAILY MVI) TABLET (FP) PO SCH (09:15)
[2016-10-25] MEDS: MIRTAZAPINE 15 MG TABLET (FP) PO SCH (09:15)
[2016-10-25] MEDS: amLODIPine BESYLATE 5 MG TABLET (FP) PO SCH (09:15)
[2016-10-25] MEDS: HEPARIN NA (PORCINE) 5,000 UNITS/ML 1ML VIAL SQ SCH ×2 (11:28→21:41)
[2016-10-25] MEDS: MUPIROCIN CA 2% TOPICAL CREAM 15 GM TUBE TP SCH ×4 (11:28→21:39)
[2016-10-25] MEDS ORDERED: LIDOCAINE VISCOUS 2% ORAL/TOP 20 ML UNIT-DOSE CUP MM ONE (13:13)
--- NOTE | 2016-10-25 13:13 | PN ---
Progress Note, Physician Chief Complaint: Events noted Not in distress History of Present Illness: Patient was seen and examined. Awake and alert. Chart was reviewed Denies chest pain, SOB or palpitations - Current Medication List Current Medications: Active Medications Acetaminophen (Tylenol -) 500 mg PO Q6H PRN PRN Reason: FEVER OR PAIN Last Admin: 10/24/16 06:15 Dose: 500 mg Amlodipine Besylate (Norvasc -) 5 mg PO DAILY [facility] Last Admin: 10/25/16 09:15 Dose: Not Given Emtricitabine/Rilpivirine/Tenofovir (Complera -) 1 each PO DAILY [facility] Last Admin: 10/25/16 09:15 Dose: Not Given Heparin Sodium (Porcine) (Heparin -) 5,000 unit SQ BID [facility] Last Admin: 10/25/16 11:28 Dose: 5,000 unit Sodium Chloride (Normal Saline -) 1,000 mls @ 75 mls/hr IV ASDIR [facility] Last Admin: 10/24/16 17:49 Dose: 75 mls/hr Ampicillin Sodium 2 gm/ Sodium (Chloride) 100 mls @ 200 mls/hr IVPB Q4H-IV [facility] Last Admin: 10/25/16 11:28 Dose: 200 mls/hr Methadone HCl 80 mg/ Methadone (HCl 10 mg/ Methadone HCl 5 mg) 95 mg PO DAILY@ 0600 [facility] Last Admin: 10/25/16 06:04 Dose: 95 mg Mirtazapine (Remeron -) 15 mg PO DAILY [facility] Last Admin: 10/25/16 09:15 Dose: Not Given Multivitamins/Minerals/Vitamin C (Tab-A-Vit -) 1 tab PO DAILY [facility] Last Admin: 10/25/16 09:15 Dose: Not Given Mupirocin (Bactroban 2% Cream -) 1 applic TP BID [facility] Last Admin: 10/25/16 11:33 Dose: 1 applic Trazodone HCl (Desyrel -) 100 mg PO HS [facility] Last Admin: 10/24/16 21:22 Dose: 100 mg - Objective Vital Signs: Vital Signs Temperature 98.9 F 10/25/16 09:24 Pulse Rate 66 10/25/16 09:24 Respiratory Rate 18 10/25/16 09:24 Blood Pressure 116/75 10/25/16 09:24 O2 Sat by Pulse Oximetry (%) 96 10/25/16 09:00 Neck: Yes: Supple Cardiovascular: Yes: Regular Rate and Rhythm, S1, S2 Respiratory: Yes: CTA Bilaterally Gastrointestinal: Yes: Normal Bowel Sounds, Soft. No: Tenderness Edema: No Labs: CBC, BMP 10/25/16 06:35 10/25/16 06:35 Problem List - Problems (1) Bacteremia Code(s): R78.81 - BACTEREMIA (2) Cellulitis Code(s): L03.90 - CELLULITIS, UNSPECIFIED (3) Hypertension Code(s): I10 - ESSENTIAL (PRIMARY) HYPERTENSION Qualifiers: Hypertension type: essential hypertension Qualified Code(s): I10 - Essential (primary) hypertension (4) Sepsis syndrome Code(s): SIP4152 - (5) HIV disease Code(s): B20 - HUMAN IMMUNODEFICIENCY VIRUS [HIV] DISEASE Assessment/Plan 1. Strep equinis bacteremia with cellulitis of left 1st toe r/o endocarditis 2. Leukopenia and thrombocytopenia referable to sepsis 3. HIV on HAART and post Hep C 4. Polysubstance abuse 5. HTN PLAN: 1, Continue Ampicillin course per ID 2. MIKE to exclude endocarditis and assist in determining duration of therapy 3. Continue Norvasc 5 mg qd 4. DVT prophylaxis Further plans are to follow Valentino Fernández MD
--- NOTE | 2016-10-25 13:47 | OP ---
DATE OF OPERATION: DATE OF DICTATION: 10/25/2016 PROCEDURE: Incision and drainage, subfascial, to the left great toe. PREOPERATIVE DIAGNOSIS: Abscess. POSTOPERATIVE DIAGNOSIS: Abscess. ANESTHESIA: None given. The patient tolerated bedside incision and drainage. NARRATIVE: After prepping the patient in the usual manner, debridement of the hyperkeratotic lesion on the great toe on the left foot revealed purulence. An incision and drainage was then performed. Exploration of the wound reveals that it probes just about to bone and therefore subfascial concern for possible osteomyelitis. The wound was then irrigated and dressed with a Betadine-soaked gauze dressing. ZACKARY SOUZA/[id number]
--- NOTE | 2016-10-25 14:46 | PN ---
Physical Exam: SUBJECTIVE: Patient seen and examined by me at bedside. Patient had Tmax of 99.9 F overnight. Patient denies any chills today and reports feeling better this morning. Patient denies chest pain, palpitations, shortness of breath, abdominal pain, headache, dizziness, dysuria, frequency. OBJECTIVE: Vital Signs Period Temp Pulse Resp BP Sys/Forman Pulse Ox Last 24 Hr 98.4 F-99.9 F 58-69 18-20 96-138/54-75 95-99 GENERAL: Awake, alert, in no acute distress. LUNGS: CTA bilaterally. No wheezes or rhonchi HEART: Regular rate and rhythm, normal S1 and S2 without murmur, rub or gallop. ABDOMEN: Soft, protruding and distended, nontender. Normoactive bowel sounds LOWER EXTREMITIES: Erythema and tenderness of bilateral legs with wrapping around the left foot with dried blood. NEUROLOGICAL: No facial droop. Motor strength 5/5 throughout. Sensory intact SKIN: Erythema of bilateral lower extremities with no abrasions or drainage Laboratory Results - last 24 hr 10/25/16 10/25/16 06:35 06:35 WBC 3.6 L RBC 4.17 Hgb 12.6 Hct 37.8 MCV 90.5 MCHC 33.3 RDW 14.2 Plt Count 77 L D MPV 9.1 Sodium 138 Potassium 3.8 Chloride 102 Carbon Dioxide 26 Anion Gap 10 BUN 8 D Creatinine 1.0 Random Glucose 84 Calcium 8.7 Creatine Kinase 727 H CK-MB (CK-2) 8.925 H Active Medications Generic Name Dose Route Start Last Admin Trade Name Freq PRN Reason Stop Dose Admin Acetaminophen 500 mg 10/21/16 19:00 10/24/16 06:15 Tylenol - PO 500 mg Q6H PRN Administration FEVER OR PAIN Amlodipine Besylate 5 mg 10/21/16 10:00 10/25/16 09:15 Norvasc - PO Not Given DAILY [facility] Emtricitabine/Rilpivirine/Tenofovir 1 each 10/21/16 10:00 10/25/16 09:15 Complera - PO Not Given DAILY [facility] Heparin Sodium (Porcine) 5,000 unit 10/20/16 22:00 10/25/16 11:28 Heparin - SQ 5,000 unit BID [facility] Administration Sodium Chloride 1,000 mls @ 75 mls/hr 10/20/16 17:00 10/24/16 17:49 Normal Saline - IV 75 mls/hr ASDIR [facility]AN Administration Ampicillin Sodium 2 gm/ Sodium 100 mls @ 200 mls/hr 10/24/16 18:00 10/25/16 11: 28 Chloride IVPB 200 mls/hr Q4H-IV [facility] Administration Methadone HCl 80 mg/ Methadone 95 mg 10/22/16 08:00 10/25/16 06:04 HCl 10 mg/ Methadone HCl 5 mg PO 95 mg DAILY@0600 [facility] Administration Mirtazapine 15 mg 10/21/16 10:00 10/25/16 09:15 Remeron - PO Not Given DAILY [facility] Multivitamins/Minerals/Vitamin C 1 tab 10/21/16 10:00 10/25/16 09:15 Tab-A-Vit - PO Not Given DAILY [facility] Mupirocin 1 applic 10/25/16 09:00 10/25/16 11:33 Bactroban 2% Cream - TP 1 applic BID [facility] Administration Trazodone HCl 100 mg 10/20/16 22:00 10/24/16 21:22 Desyrel - PO 100 mg HS [facility]AN Administration IMAGES Chest X-Ray (10/20/16): Cardiomegaly with no signs of pneumonia, atelectasis, pneumothorax, or pleural effusions. No signs of lung mass. CT Head (10/20/16): No acute hemorrhage or infarction. Abdomen/Pelvic/Chest CT (10/20/16): Overall low lung volumes with mosaic lung attenuation is nonspecific and could be secondary to imaging in the expiratory phase or could be secondary to an element of air trapping seen in airway disease. Correlate with clinical history. No focal consolidation or mass seen. 3 to 4 mm right lower lobe groundglass nodule. Follow-up CT scan in 12 months is suggested. Dilated pulmonary trunk at 3.9 cm suggestive of an element of pulmonary hypertension. Bilateral gynecomastia. Marked splenomegaly with splenorenal shunting. This is of unclear etiology. Appendix not visualized however there are no indirect findings of acute appendicitis. Status post cholecystectomy. Duplex of Bilateral Lower Extremities (10/20/16): There is no evidence of deep venous thromboses in both lower extremities. Chest X-Ray (10/22/16): No acute pathology Foot X-Ray (10/24/16): Ulceration at the tip of the big toe. No definite radiographic evidence of osteomyelitis. ASSESSMENT/PLAN: Patient is a 55 year old male with a PMHx of treated Hepatitis C, Stable HIV on HAART with last CD4 667 and viral load <20copies, HTN, Polysubstance abuse on Methadone who was brought in by his PCP for fever, shortness of breath, and productive cough. Patient was found to be septic and admitted for further monitoring and management. Sepsis Secondary to possible Cellulitis of left hallux- Improving -Blood cultures positive for Equinos -Second set of blood cultures NGTD -Urine cultures negative -Febrile overnight with Tmax 99.9 -Vancomycin and Ceftriaxone discontinued -Ampicillin 2gm IVPB Q4H day #2 -Continue IV NS @75mls/hr -Cardiac consult appreciated. MIKE to be done today to rule out possible endocarditis -Will need a colonoscopy due to cultures growing strep Equinus, which may cause GI malignancy -Podiatry consult appreciated. Had deep great toe pulp abscess most likely secondary to self debridement with a environmental programs specialist knife. Wound cultures sent -MRI ordered to rule out Osteomyelitis of left foot Acute metabolic Encephalopathy- Resolved -Likely secondary to sepsis vs. Drug intoxication -Patient has history of alcohol and IV drug abuse -Ammonia level normal -Urine toxicology negative except for methadone -Alcohol level negative -Head CT negative RLQ Abdominal Pain- Chronic and Improved -CT Abdo/Pelvis negative for acute pathology Acute Kidney Injury- Resolved -Possibly secondary to rhabdomyolysis -Today 1.0 -Continue IV NS @75mls/hr -Continue to monitor BMP Rhabdomyolysis-Improving -CPK 727 -Creatinine 1.0 -Continue IV NS @75mls/hr -Continue to monitor CPK Thrombocytopenia and Neutropenia- Improving -secondary to sepsis -Today's WBC 3.6 -Today's Platelets 77 -Transfuse if levels <10,000 or <30,000 if actively bleeding HIV- Chronic and Stable -Stable with last CD 4 667 and last Viral load <20 copies -Continue with Tenof Df daily Polysubstance Abuse -Denies any recent use -Alcohol level negative -Urine toxicology negative -Continue with Methadone 95mg daily HTN- Controlled -Controlled with Norvasc 5mg daily -Continue to monitor BP Depression -Continue with Remeron 15mg daily -Continue Trazadone 100mg HS F/E/N -IV NS @75mls/hr -Electrolytes wnl -Sodium controlled diet Prophylaxis -Heparin 5000 units BID SQ for DVT Disposition -Awaiting wound cultures, blood culture sensitivities and MIKE Visit type - Emergency Visit Emergency Visit: Yes ED Registration Date: 10/20/16 Care time: The patient presented to the Emergency Department on the above date and was hospitalized for further evaluation of their emergent condition. - New Patient This patient is new to me today: No - Critical Care Critical Care patient: No
--- NOTE | 2016-10-25 14:58 | PN ---
Progress Note (short form) - Note Progress Note: no fevers today s/p bedside debridement of the big toe s/p MIKE today, results pending Vital Signs Period Temp Pulse Resp BP Sys/Forman Pulse Ox Last 24 Hr 98.4 F-99.9 F 58-69 18-20 96-138/54-75 95-99 cor-rrr lungs clear abd soft,nt ext toe with dressing intact CBC, BMP 10/25/16 06:35 10/25/16 06:35 Microbiology 10/20/16 12:09 Blood - Peripheral Venous Blood Culture - Final Streptococcus Equinus 2 10/20/16 12:09 Blood - Peripheral Venous Blood Culture - Preliminary Streptococcus Equinus 2 10/22/16 07:00 Blood - Peripheral Venous Blood Culture - Preliminary NO GROWTH OBTAINED AFTER 72 HOURS, INCUBATION TO CONTINUE FOR 2 DAYS. 10/22/16 07:00 Blood - Peripheral Venous Blood Culture - Preliminary NO GROWTH OBTAINED AFTER 72 HOURS, INCUBATION TO CONTINUE FOR 2 DAYS. 10/20/16 13:21 Urine - Urine Clean Catch Urine Culture - Final 10/20/16 20:30 Nasopharyngeal Swab Respiratory Virus Panel - Preliminary 10/20/16 17:44 Urine For Antigen Detection Legionella Antigen - Final 10/20/16 17:44 Urine For Antigen Detection Streptococcus pneumoniae Antigen (M - Final 10/20/16 20:30 Nasopharyngeal Swab Influenza Types A,B Antigen (TOÑO) - Final 10/20/16 20:30 Nasopharyngeal Swab - Final echo- suboptimal a/p sepsis syndrome strep equinis bacteremia- ?toe, ?endocartitis, f/u cultures, f/u MIKE, continue ampicillin MRI ordered, suspect minimum 4 weeks iv antibiotics rhabdomyolysis-improving continue hydration stable hiv treated hep c YVON-improving thrombocytopenia leukopenia- improved Problem List - Problems (1) Sepsis syndrome Code(s): AEN2482 - (2) Bacteremia Code(s): R78.81 - BACTEREMIA (3) Cellulitis Code(s): L03.90 - CELLULITIS, UNSPECIFIED (4) YVON (acute kidney injury) Code(s): N17.9 - ACUTE KIDNEY FAILURE, UNSPECIFIED (5) Rhabdomyolysis Code(s): M62.82 - RHABDOMYOLYSIS (6) HIV disease Code(s): B20 - HUMAN IMMUNODEFICIENCY VIRUS [HIV] DISEASE (7) Hep C w/o coma, chronic Code(s): B18.2 - CHRONIC VIRAL HEPATITIS C (8) Altered mental status Code(s): R41.82 - ALTERED MENTAL STATUS, UNSPECIFIED Qualifiers: Altered mental status type: unspecified Qualified Code(s): R41.82 - Altered mental status, unspecified
--- NOTE | 2016-10-25 15:37 | PN ---
Teaching Attending Note Name of Resident: Bri Mars ATTENDING PHYSICIAN STATEMENT I saw and evaluated the patient. I reviewed the resident's note and discussed the case with the resident. I agree with the resident's findings and plan as documented. SUBJECTIVE:c/o low back pain that is aggravating his sciatica. denies CP, SOB, fever, chills, N/V/C/D OBJECTIVE: Last Vital Signs Temp Pulse Resp BP Pulse Ox 98.4 F 58 L 18 110/60 99 10/25/16 13:40 10/25/16 14:19 10/25/16 14:19 10/25/16 14:19 10/25/16 14:19 General NAD CV S1 S2 RRR no murmur/rub/gallop Lungs CTA B/L no wheezing/rales/rhonchi Extremitiies +clubbing, L foot wrapped in gauze with some dried blood ASSESSMENT AND PLAN: 55 yo M with PMH HIV, hepatitis C, cirrhosis, HTN, polysubstance abuse, depression who presented to the ER with fever, productive cough, and SOB. 1. Sepsis secondary to cellulitis of left 1st toe and strep equinis bacteremia- s/p I&D 10/24. elevated ESR/CRP. concern for underlying OM. uncertain on XR will obtain MRI. MIKE done today to r/o endocarditis and was negative for vegetations. pt will require PICC line for terminal worker Abx therapy. currently on ampicillin day 2. f/u WCx. repeat Bcx negative. ID and podiatry on board. will need colonoscopy as outpatient 2. Low back pain- no bone point tenderness. likely due to inactivity. will place lidoderm patches while hospitalized 3. Acute metabolic encephalopathy secondary to sepsis- Improved 4. Acute kidney injury secondary to sepsis, rhabdomyolysis- Improved 5. Rhabdomyolysis- Resolved 6. Leukopenia secondary to sepsis- WBC improving 7. Thrombocytopenia- Acute, secondary to sepsis, on chronic- Platelets improving 8. Hypertension- Continue Norvasc 9. HIV- Continue Complera 10. Hepatitis C- s/p treatment 11. History of polysubstance abuse- Continue Methadone 12. d/c planning once obtain results of Cx and MRI results. will need to decide on safe placement on discharge as pt will require PICC line with remote hx of IVDA. PROSPER placement likely to be difficult due to methadone use. will d/w CM & SW
[2016-10-25] MEDS: LIDOCAINE 5% TOPICAL PATCH TP SCH (18:56)
[2016-10-25] MEDS ORDERED: NAPROXEN 375 MG TABLET (FP) PO ONE (20:29)
[2016-10-25] MEDS: LIDOCAINE PATCH REMOVAL MC SCH (21:34)
[2016-10-25] MEDS: traZODone HCL 50 MG TABLET (FP) PO SCH (21:40)
[2016-10-25] MEDS: SODIUM CHLORIDE 1,000 ML IV SCH (22:15)
[2016-10-26] MEDS: AMPICILLIN - 2 GM in SODIUM CHLORIDE 100 ML IVPB SCH ×6 (01:08→21:43)
[2016-10-26] MEDS ORDERED: METHADONE HCL 40 MG DISPERSABLE TABLET ONE (05:01)
[2016-10-26] MEDS ORDERED: METHADONE HCL 5 MG TABLET ONE (05:01)
[2016-10-26] MEDS ORDERED: METHADONE HCL 10 MG TABLET ONE (05:01)
[2016-10-26] MEDS: METHADONE 80 MG, METHADONE 10 MG, METHADONE 5 MG PO SCH (05:04)
[2016-10-26 08:29] LABS: MCH 30.6 pg (25.7-33.7); MCHC 33.8 g/dl (32.0-35.9); MEAN CELL VOLUME 90.6 fl (80-96); MEAN PLT VOLUME 8.9 fl (7.5-11.1); PLATELET COUNT 88 K/MM3 (134-434); RDW 14.1 % (11.9-15.9); WHITE BLOOD COUNT 3.3 K/mm3 (4.0-10.0)
--- NOTE | 2016-10-26 11:02 | PN ---
Progress Note (short form) - Note Progress Note: S: 56 year old male, history of hypertension, treated hepatitis C, History of HIV, admitted with septicemia associated with mental confusion, fever, originating from an infected toe. Patient states that he feels much better since being placed on antibiotics and undergoing incision and drainage of the left great toe. MIKE revealed normal Left ventricular size and function, there was mild mitral regurgitation, no vegetation were seem involving the mitral valve, mild tricuspid regurgitation and no vegetation were noted. Aortic valve was trileaftlet and revealed normal structure with mild aortic regurgitation. No vegetations were reported involving the aortic and pulmonic valve. Active Medications Generic Name Dose Route Start Last Admin Trade Name Freq PRN Reason Stop Dose Admin Acetaminophen 500 mg 10/21/16 19:00 10/24/16 06:15 Tylenol - PO 500 mg Q6H PRN Administration FEVER OR PAIN Amlodipine Besylate 5 mg 10/21/16 10:00 10/25/16 09:15 Norvasc - PO Not Given DAILY [facility] Emtricitabine/Rilpivirine/Tenofovir 1 each 10/21/16 10:00 10/25/16 09:15 Complera - PO Not Given DAILY [facility] Heparin Sodium (Porcine) 5,000 unit 10/20/16 22:00 10/25/16 21:41 Heparin - SQ 5,000 unit BID [facility]AN Administration Ampicillin Sodium 2 gm/ Sodium 100 mls @ 200 mls/hr 10/24/16 18:00 10/26/16 05: 07 Chloride IVPB 200 mls/hr Q4H-IV [facility]AN Administration Lidocaine 1 patch 10/25/16 18:30 10/25/16 18:56 Lidoderm Patch - TP Not Given DAILY [facility] Methadone HCl 80 mg/ Methadone 95 mg 10/22/16 08:00 10/26/16 05:04 HCl 10 mg/ Methadone HCl 5 mg PO 95 mg DAILY@0600 [facility]AN Administration Mirtazapine 15 mg 10/21/16 10:00 10/25/16 09:15 Remeron - PO Not Given DAILY [facility] Miscellaneous 1 each 10/25/16 22:00 10/25/16 21:34 Lidoderm Patch Removal MC Not Given DAILY@2200 [facility] Multivitamins/Minerals/Vitamin C 1 tab 10/21/16 10:00 10/25/16 09:15 Tab-A-Vit - PO Not Given DAILY [facility] Mupirocin 1 applic 10/25/16 09:00 10/25/16 21:39 Bactroban 2% Cream - TP 1 applic BID [facility]AN Administration Trazodone HCl 100 mg 10/20/16 22:00 10/25/16 21:40 Desyrel - PO 100 mg HS [facility]AN Administration O: 56 year old male was in no acute distress, no pallor, cyanosis, clubbing, or jaundice. Last Vital Signs Temp Pulse Resp BP Pulse Ox 98.6 F 73 20 140/80 99 10/26/16 06:36 10/26/16 06:36 10/26/16 06:36 10/26/16 06:36 10/25/16 21:00 Neck: Supple, no JVD, negative HJR, carotids were equal and upstrokes were normal, no thyromegaly appreciated. Heart: PMI was in the 5th intercostal space, no heaves or thrills, S1 and S2 were normal. No murmurs or gallops were appreciated. Lungs: Clear on auscultation bilaterally. Abdomen: Soft, nontender, no hepatosplenomegaly appreciated, and no palpable masses were felt. Extremities: No calf tenderness or dependent edema. Left big toe is bandaged. CBC, BMP 10/26/16 06:52 10/25/16 06:35 Laboratory Results - last 24 hr 10/25/16 10/26/16 10/26/16 06:35 06:52 06:52 WBC 3.3 L RBC 3.88 L Hgb 11.9 Hct 35.2 L MCV 90.6 MCHC 33.8 RDW 14.1 Plt Count 88 L MPV 8.9 Creatine Kinase 341 H D CK-MB (CK-2) 2.774 CK-MB (CK-2) Rel Index Cancelled 10/26/16 06:52 WBC RBC Hgb Hct MCV MCHC RDW Plt Count MPV Creatine Kinase CK-MB (CK-2) CK-MB (CK-2) Rel Index 0.8 Impression: (1) Hypertension Code(s): I10 - ESSENTIAL (PRIMARY) HYPERTENSION Qualifiers: Hypertension type: essential hypertension Qualified Code(s): I10 - Essential (primary) hypertension (2) Septicemia related to infected left big toe Code(s): R78.81 - BACTEREMIA (3) HIV disease (In remission) Code(s): B20 - HUMAN IMMUNODEFICIENCY VIRUS [HIV] DISEASE (4) Treated Hepatitis C Code(s): B19.20 - UNSPECIFIED VIRAL HEPATITIS C WITHOUT HEPATIC COMA (5) History of drug dependence Code(s): F19.20 - OTHER PSYCHOACTIVE SUBSTANCE DEPENDENCE, UNCOMPLICATED Recommendations: 1. Continue antihypertensive therapy. If needed please do not hesitate to call. Thank you. Attestation: Documentation prepared by Paul Mancini, acting as medical facilities section director for Olu Mojica MD. Problem List - Problems (1) Hepatitis C Code(s): B19.20 - UNSPECIFIED VIRAL HEPATITIS C WITHOUT HEPATIC COMA (2) Drug dependence Code(s): F19.20 - OTHER PSYCHOACTIVE SUBSTANCE DEPENDENCE, UNCOMPLICATED
[2016-10-26] MEDS ORDERED: PT OWN MED DRAWER 7, Y5N ONE ×3 (11:10→18:14)
[2016-10-26] MEDS: EMTRICITAB/RILPIVIRINE/TENOFOV 1 EACH TABLET PO SCH (11:23)
[2016-10-26] MEDS: MULTIVITAMINS (DAILY MVI) TABLET (FP) PO SCH (11:23)
[2016-10-26] MEDS: amLODIPine BESYLATE 5 MG TABLET (FP) PO SCH (11:23)
[2016-10-26] MEDS: MIRTAZAPINE 15 MG TABLET (FP) PO SCH (11:24)
[2016-10-26] MEDS: LIDOCAINE 5% TOPICAL PATCH TP SCH (11:25)
[2016-10-26] MEDS: HEPARIN NA (PORCINE) 5,000 UNITS/ML 1ML VIAL SQ SCH ×2 (11:25→21:50)
[2016-10-26] MEDS: MUPIROCIN CA 2% TOPICAL CREAM 15 GM TUBE TP SCH ×2 (11:27→21:51)
--- NOTE | 2016-10-26 11:32 | PN ---
Physical Exam: SUBJECTIVE: Patient seen and examined by me at bedside. No overnight events noted and no fevers in the last 24 hours. Patient offers no complaints and will be going for an MRI of the foot today. Otherwise, patient denies fever, chills, nausea, vomiting, abdominal pain, chest pain, palpitations, shortness of breath, dizziness, dysuria, hematuria. OBJECTIVE: Vital Signs Period Temp Pulse Resp BP Sys/Forman Pulse Ox Last 24 Hr 98.4 F-98.6 F 58-76 18-20 96-147/54-80 97-99 GENERAL: Awake, alert, in no acute distress. LUNGS: Rhonchi throughout lung bases bilaterally HEART: Regular rate and rhythm, normal S1 and S2 without murmur, rub or gallop. ABDOMEN: Soft, protruding and distended, nontender. Normoactive bowel sounds LOWER EXTREMITIES: Erythema and tenderness of bilateral legs L>R with wrapping around the left foot c/d/i NEUROLOGICAL: No facial droop. SKIN: Erythema of bilateral lower extremities with no abrasions or drainage Laboratory Results - last 24 hr 10/25/16 10/26/16 10/26/16 06:35 06:52 06:52 WBC 3.3 L RBC 3.88 L Hgb 11.9 Hct 35.2 L MCV 90.6 MCHC 33.8 RDW 14.1 Plt Count 88 L MPV 8.9 Creatine Kinase 341 H D CK-MB (CK-2) 2.774 CK-MB (CK-2) Rel Index Cancelled 10/26/16 06:52 WBC RBC Hgb Hct MCV MCHC RDW Plt Count MPV Creatine Kinase CK-MB (CK-2) CK-MB (CK-2) Rel Index 0.8 Active Medications Generic Name Dose Route Start Last Admin Trade Name Freq PRN Reason Stop Dose Admin Acetaminophen 500 mg 10/21/16 19:00 10/24/16 06:15 Tylenol - PO 500 mg Q6H PRN Administration FEVER OR PAIN Amlodipine Besylate 5 mg 10/21/16 10:00 10/25/16 09:15 Norvasc - PO Not Given DAILY [facility] Emtricitabine/Rilpivirine/Tenofovir 1 each 10/21/16 10:00 10/25/16 09:15 Complera - PO Not Given DAILY [facility] Heparin Sodium (Porcine) 5,000 unit 10/20/16 22:00 10/25/16 21:41 Heparin - SQ 5,000 unit BID HAN Administration Ampicillin Sodium 2 gm/ Sodium 100 mls @ 200 mls/hr 10/24/16 18:00 10/26/16 05: 07 Chloride IVPB 200 mls/hr Q4H-IV HAN Administration Lidocaine 1 patch 10/25/16 18:30 10/25/16 18:56 Lidoderm Patch - TP Not Given DAILY [facility] Methadone HCl 80 mg/ Methadone 95 mg 10/22/16 08:00 10/26/16 05:04 HCl 10 mg/ Methadone HCl 5 mg PO 95 mg DAILY@0600 HAN Administration Mirtazapine 15 mg 10/21/16 10:00 10/25/16 09:15 Remeron - PO Not Given DAILY [facility] Miscellaneous 1 each 10/25/16 22:00 10/25/16 21:34 Lidoderm Patch Removal MC Not Given DAILY@2200 [facility] Multivitamins/Minerals/Vitamin C 1 tab 10/21/16 10:00 10/25/16 09:15 Tab-A-Vit - PO Not Given DAILY [facility] Mupirocin 1 applic 10/25/16 09:00 10/25/16 21:39 Bactroban 2% Cream - TP 1 applic BID HAN Administration Trazodone HCl 100 mg 10/20/16 22:00 10/25/16 21:40 Desyrel - PO 100 mg HS HAN Administration IMAGES Chest X-Ray (10/20/16): Cardiomegaly with no signs of pneumonia, atelectasis, pneumothorax, or pleural effusions. No signs of lung mass. CT Head (10/20/16): No acute hemorrhage or infarction. Abdomen/Pelvic/Chest CT (10/20/16): Overall low lung volumes with mosaic lung attenuation is nonspecific and could be secondary to imaging in the expiratory phase or could be secondary to an element of air trapping seen in airway disease. Correlate with clinical history. No focal consolidation or mass seen. 3 to 4 mm right lower lobe groundglass nodule. Follow-up CT scan in 12 months is suggested. Dilated pulmonary trunk at 3.9 cm suggestive of an element of pulmonary hypertension. Bilateral gynecomastia. Marked splenomegaly with splenorenal shunting. This is of unclear etiology. Appendix not visualized however there are no indirect findings of acute appendicitis. Status post cholecystectomy. Duplex of Bilateral Lower Extremities (10/20/16): There is no evidence of deep venous thromboses in both lower extremities. Chest X-Ray (10/22/16): No acute pathology Foot X-Ray (10/24/16): Ulceration at the tip of the big toe. No definite radiographic evidence of osteomyelitis. ASSESSMENT/PLAN: Patient is a 55 year old male with a PMHx of treated Hepatitis C, Stable HIV on HAART with last CD4 667 and viral load <20copies, HTN, Polysubstance abuse on Methadone who was brought in by his PCP for fever, shortness of breath, and productive cough. Patient was found to be septic and admitted for further monitoring and management. Sepsis Secondary to possible Cellulitis of left hallux- Improving -Blood cultures positive for Equinos -Second set of blood cultures NGTD -Urine cultures negative -Afebrile overnight -Ampicillin 2gm IVPB Q4H day #3 -Cardiac consult appreciated. -MIKE negative for vegetations. -Will need a colonoscopy due to cultures growing strep Equinus, which may cause GI malignancy -Podiatry consult appreciated. Had deep great toe pulp abscess most likely secondary to self debridement with a spinner frame knife. -Wound cultures pending -MRI ordered to rule out Osteomyelitis of left foot Acute metabolic Encephalopathy- Resolved -Likely secondary to sepsis vs. Drug intoxication -Patient has history of alcohol and IV drug abuse -Ammonia level normal -Urine toxicology negative except for methadone -Alcohol level negative -Head CT negative RLQ Abdominal Pain- Chronic and Improved -CT Abdo/Pelvis negative for acute pathology Acute Kidney Injury- Resolved -Possibly secondary to rhabdomyolysis -Continue to monitor BMP Rhabdomyolysis-Improving -CPK 341 -Continue to monitor CPK Thrombocytopenia and Neutropenia- Improving -secondary to sepsis -Today's WBC 3.3 -Today's Platelets 88 -Transfuse if levels <10,000 or <30,000 if actively bleeding HIV- Chronic and Stable -Stable with last CD4 667 and last Viral load <20 copies -Continue with Tenof Df daily Polysubstance Abuse -Denies any recent use -Alcohol level negative -Urine toxicology negative -Continue with Methadone 95mg daily HTN- Controlled -Controlled with Norvasc 5mg daily -Continue to monitor BP Depression -Continue with Remeron 15mg daily -Continue Trazadone 100mg HS F/E/N -On no fluids -Electrolytes wnl -Sodium controlled diet Prophylaxis -Heparin 5000 units BID SQ for DVT Disposition -Wound cultures pending. MRI of foot pending. If MRI positive for osteomyelitis will need a PICC line and halfway. However, due to patients history of Polysubstance abuse and on Methadone, will need to find a facility that gives Methadone. Visit type - Emergency Visit Emergency Visit: Yes ED Registration Date: 10/20/16 Care time: The patient presented to the Emergency Department on the above date and was hospitalized for further evaluation of their emergent condition. - New Patient This patient is new to me today: No - Critical Care Critical Care patient: No
--- NOTE | 2016-10-26 15:38 | PN ---
Teaching Attending Note Name of Resident: Bri Mars ATTENDING PHYSICIAN STATEMENT I saw and evaluated the patient. I reviewed the resident's note and discussed the case with the resident. I agree with the resident's findings and plan as documented. SUBJECTIVE:asymptomatic. does not have any foot pain. denies CP, SOB,fever, chills, N/V/C/D OBJECTIVE: Last Vital Signs Temp Pulse Resp BP Pulse Ox 98.3 F 57 L 20 116/75 99 10/26/16 14:17 10/26/16 14:17 10/26/16 06:36 10/26/16 14:17 10/25/16 21:00 General NAD CV S1 S2 RRR no murmur/rub/gallop Lungs CTA B/L no wheezing/rales/rhonchi Extremitiies +clubbing, L foot wrapped in gauze c/d/i ASSESSMENT AND PLAN: 55 yo M with PMH HIV, hepatitis C, cirrhosis, HTN, polysubstance abuse, depression who presented to the ER with fever, productive cough, and SOB. 1. Sepsis secondary to cellulitis of left 1st toe and strep equinis bacteremia- s/p I&D 10/24. awaiting MRI to further evaluate for OM. will likely require special education inclusion teacher abx and PICC placement. on ampicillin day 3. awaiting MRI and wound Cx report to make determination. ID and podiatry on board. will need colonoscopy as outpatient 2. Low back pain-improved with lidoderm patches 3. Acute metabolic encephalopathy secondary to sepsis- Improved 4. Acute kidney injury secondary to sepsis, rhabdomyolysis- Improved 5. Rhabdomyolysis- Resolved 6. Leukopenia secondary to sepsis- WBC improving 7. Thrombocytopenia- Acute, secondary to sepsis, on chronic- Platelets improving 8. Hypertension- Continue Norvasc 9. HIV- Continue Complera 10. Hepatitis C- s/p treatment 11. History of polysubstance abuse- Continue Methadone 12. DVT ppx- hep sq
--- NOTE | 2016-10-26 16:07 | PN ---
Progress Note (short form) - Note Progress Note: no fevers today s/p bedside debridement of the big toe Vital Signs Period Temp Pulse Resp BP Sys/Forman Pulse Ox Last 24 Hr 98.3 F-98.6 F 57-76 18-20 116-147/68-80 99 cor-rrr lungs clear abd soft,nt ext dressing right foot CBC, BMP 10/26/16 06:52 10/25/16 06:35 QUIANA negative a/p sepsis syndrome strep equinis bacteremia- ?toe, quiana negative, mri of foot r/o osteo, continue ampicillin MRI ordered, will need gi evaluation for colonoscopy (can be done as outpt) stable hiv- continue art treated hep c YVON-resolved Problem List - Problems (1) Sepsis syndrome Code(s): [id number] - (2) Bacteremia Code(s): R78.81 - BACTEREMIA (3) Cellulitis Code(s): L03.90 - CELLULITIS, UNSPECIFIED (4) YVON (acute kidney injury) Code(s): N17.9 - ACUTE KIDNEY FAILURE, UNSPECIFIED (5) Rhabdomyolysis Code(s): M62.82 - RHABDOMYOLYSIS (6) HIV disease Code(s): B20 - HUMAN IMMUNODEFICIENCY VIRUS [HIV] DISEASE (7) Hep C w/o coma, chronic Code(s): B18.2 - CHRONIC VIRAL HEPATITIS C (8) Altered mental status Code(s): R41.82 - ALTERED MENTAL STATUS, UNSPECIFIED Qualifiers: Altered mental status type: unspecified Qualified Code(s): R41.82 - Altered mental status, unspecified
[2016-10-26] MEDS: LIDOCAINE PATCH REMOVAL MC SCH (21:44)
[2016-10-26] MEDS: ACETAMINOPHEN 500 MG TABLET (FP) PO PRN (21:50)
[2016-10-26] MEDS: traZODone HCL 50 MG TABLET (FP) PO SCH (21:50)
[2016-10-27] MEDS ORDERED: PT OWN MED DRAWER 7, Y5N ONE ×6 (01:09→21:32)
[2016-10-27] MEDS: AMPICILLIN - 2 GM in SODIUM CHLORIDE 100 ML IVPB SCH ×6 (01:10→21:36)
[2016-10-27] MEDS ORDERED: METHADONE HCL 10 MG TABLET ONE (05:32)
[2016-10-27] MEDS ORDERED: METHADONE HCL 40 MG DISPERSABLE TABLET ONE (05:32)
[2016-10-27] MEDS ORDERED: METHADONE HCL 5 MG TABLET ONE (05:32)
[2016-10-27] MEDS: METHADONE 80 MG, METHADONE 10 MG, METHADONE 5 MG PO SCH (05:35)
[2016-10-27 07:17] LABS: MCH 30.4 pg (25.7-33.7); MCHC 33.4 g/dl (32.0-35.9); MEAN PLT VOLUME 8.8 fl (7.5-11.1); PLATELET COUNT 103 K/MM3 (134-434); RDW 14.3 % (11.9-15.9); WHITE BLOOD COUNT 3.4 K/mm3 (4.0-10.0)
[2016-10-27] MEDS: HEPARIN NA (PORCINE) 5,000 UNITS/ML 1ML VIAL SQ SCH ×2 (10:10→21:38)
[2016-10-27] MEDS: MIRTAZAPINE 15 MG TABLET (FP) PO SCH (10:10)
[2016-10-27] MEDS: MUPIROCIN CA 2% TOPICAL CREAM 15 GM TUBE TP SCH ×2 (10:10→21:37)
[2016-10-27] MEDS: amLODIPine BESYLATE 5 MG TABLET (FP) PO SCH (10:10)
[2016-10-27] MEDS: MULTIVITAMINS (DAILY MVI) TABLET (FP) PO SCH (10:10)
[2016-10-27] MEDS: EMTRICITAB/RILPIVIRINE/TENOFOV 1 EACH TABLET PO SCH (10:11)
[2016-10-27] MEDS: LIDOCAINE 5% TOPICAL PATCH TP SCH (10:12)
--- NOTE | 2016-10-27 10:58 | PN ---
Progress Note, Physician Chief Complaint: ID Ampicillin Doing well Strep bacteremia - Current Medication List Current Medications: Active Medications Acetaminophen (Tylenol -) 500 mg PO Q6H PRN PRN Reason: FEVER OR PAIN Last Admin: 10/26/16 21:50 Dose: 500 mg Amlodipine Besylate (Norvasc -) 5 mg PO DAILY [facility] Last Admin: 10/27/16 10:10 Dose: 5 mg Emtricitabine/Rilpivirine/Tenofovir (Complera -) 1 each PO DAILY [facility] Last Admin: 10/27/16 10:11 Dose: 1 each Heparin Sodium (Porcine) (Heparin -) 5,000 unit SQ BID [facility] Last Admin: 10/27/16 10:10 Dose: 5,000 unit Ampicillin Sodium 2 gm/ Sodium (Chloride) 100 mls @ 200 mls/hr IVPB Q4H-IV [facility] Last Admin: 10/27/16 10:10 Dose: 200 mls/hr Lidocaine (Lidoderm Patch -) 1 patch TP DAILY [facility] Last Admin: 10/27/16 10:12 Dose: Not Given Methadone HCl 80 mg/ Methadone (HCl 10 mg/ Methadone HCl 5 mg) 95 mg PO DAILY@ 0600 [facility] Last Admin: 10/27/16 05:35 Dose: 95 mg Mirtazapine (Remeron -) 15 mg PO DAILY [facility] Last Admin: 10/27/16 10:10 Dose: 15 mg Miscellaneous (Lidoderm Patch Removal) 1 each MC DAILY@2200 [facility] Last Admin: 10/26/16 21:44 Dose: Not Given Multivitamins/Minerals/Vitamin C (Tab-A-Vit -) 1 tab PO DAILY [facility] Last Admin: 10/27/16 10:10 Dose: 1 tab Mupirocin (Bactroban 2% Cream -) 1 applic TP BID [facility] Last Admin: 10/27/16 10:10 Dose: 1 applic Trazodone HCl (Desyrel -) 100 mg PO HS [facility] Last Admin: 10/26/16 21:50 Dose: 100 mg - Objective Vital Signs: Vital Signs Temperature 97.8 F 10/27/16 10:00 Pulse Rate 18 L 10/27/16 10:00 Respiratory Rate 20 10/27/16 10:00 Blood Pressure 120/67 10/27/16 10:00 O2 Sat by Pulse Oximetry (%) 94 L 10/26/16 21:00 Constitutional: Yes: Well Nourished, No Distress Neck: Yes: WNL, Supple Cardiovascular: Yes: S1, S2. No: Murmur Respiratory: Yes: WNL, Regular, CTA Bilaterally Extremities: Yes: Other Labs: CBC, BMP 10/27/16 06:20 10/25/16 06:35 INR, PTT INR 1.53 (0.82-1.09) H D 10/20/16 12:09 Assessment/Plan Selected Entries 10/27/16 10:00 Temperature 97.8 F Pulse Rate 18 L Respiratory 20 Rate Blood Pressure 120/67 Assessment Strep Equinus 2 bacteremia foot source No osteo on MRI Plan Do not need to go "residential here" with IV therapy Plan I would go 14 days for strep bacteremia ? PICC line with pump or otherwise may need to stay at least 10 days then orally amoxicillin Awa PACHECO
--- NOTE | 2016-10-27 12:23 | PN ---
Progress Note (short form) - Note Progress Note: Spoke with radiologist Dr. Joann Carranza concerning MRI- although not "definitive " for osteomyelitis, in light of patient's history of HIV, T cell count, and length of the wound from self debridement, it is "possible" the early ostemyelitis exists. Would therefore recommend bone biopsy which would be better with 2-3 days of discontinuation of antibiotics. Spoke with Dr. Borden and will proceed with biopsy tomorrow without discontinuation of antimicrobial chemotherapy although it MIGHT color results.
--- NOTE | 2016-10-27 12:32 | PN ---
Teaching Attending Note Name of Resident: Bri Mars ATTENDING PHYSICIAN STATEMENT I saw and evaluated the patient. I reviewed the resident's note and discussed the case with the resident. I agree with the resident's findings and plan as documented. SUBJECTIVE:currently asymptomatic. denies CP, SOB,fever, chills, N/V/C/D or foot pain OBJECTIVE: Last Vital Signs Temp Pulse Resp BP Pulse Ox 97.8 F 18 L 20 120/67 95 10/27/16 10:00 10/27/16 10:00 10/27/16 10:00 10/27/16 10:00 10/27/16 09:00 General NAD CV S1 S2 RRR no murmur/rub/gallop Lungs CTA B/L no wheezing/rales/rhonchi Extremitiies +clubbing, L foot wrapped in gauze c/d/i ASSESSMENT AND PLAN: 55 yo M with PMH HIV, hepatitis C, cirrhosis, HTN, polysubstance abuse, depression who presented to the ER with fever, productive cough, and SOB. 1. Sepsis secondary to cellulitis of left 1st toe and strep equinis bacteremia- s/p I&D 10/24. MRI negative for OM. spoke with micro regarding no report on wound Cx and told report should be uploaded today. spoke with podiatry who is concerned he is developing early OM in setting of him being immunocompromised. d /w him possibility of cx being negative as been on IV abx for 6 days which he is aware. plan for bone bx tomorrow. plan is for total of 10 day of IV abc. today is ampicillin day 3 but total of 6 days of IV therapy. then can be d/c on oral abx. ID and podiatry on board. will need colonoscopy as outpatient 2. Low back pain-improved with lidoderm patches 3. Acute metabolic encephalopathy secondary to sepsis- Improved 4. Acute kidney injury secondary to sepsis, rhabdomyolysis- Improved 5. Rhabdomyolysis- Resolved 6. Leukopenia secondary to sepsis- WBC improving 7. Thrombocytopenia- Acute, secondary to sepsis, on chronic- Platelets improving 8. Hypertension- Continue Norvasc 9. HIV- Continue Complera 10. Hepatitis C- s/p treatment 11. History of polysubstance abuse- Continue Methadone 12. DVT ppx- hep sq
--- NOTE | 2016-10-27 14:28 | PN ---
Progress Note, Physician History of Present Illness: Afebrile, tolerating abx therapy. - Current Medication List Current Medications: Active Medications Acetaminophen (Tylenol -) 500 mg PO Q6H PRN PRN Reason: FEVER OR PAIN Last Admin: 10/26/16 21:50 Dose: 500 mg Amlodipine Besylate (Norvasc -) 5 mg PO DAILY [facility] Last Admin: 10/27/16 10:10 Dose: 5 mg Emtricitabine/Rilpivirine/Tenofovir (Complera -) 1 each PO DAILY [facility] Last Admin: 10/27/16 10:11 Dose: 1 each Heparin Sodium (Porcine) (Heparin -) 5,000 unit SQ BID [facility] Last Admin: 10/27/16 10:10 Dose: 5,000 unit Ampicillin Sodium 2 gm/ Sodium (Chloride) 100 mls @ 200 mls/hr IVPB Q4H-IV [facility] Last Admin: 10/27/16 14:07 Dose: 200 mls/hr Lidocaine (Lidoderm Patch -) 1 patch TP DAILY [facility] Last Admin: 10/27/16 10:12 Dose: Not Given Methadone HCl 80 mg/ Methadone (HCl 10 mg/ Methadone HCl 5 mg) 95 mg PO DAILY@ 0600 [facility] Last Admin: 10/27/16 05:35 Dose: 95 mg Mirtazapine (Remeron -) 15 mg PO DAILY [facility] Last Admin: 10/27/16 10:10 Dose: 15 mg Miscellaneous (Lidoderm Patch Removal) 1 each MC DAILY@2200 [facility] Last Admin: 10/26/16 21:44 Dose: Not Given Multivitamins/Minerals/Vitamin C (Tab-A-Vit -) 1 tab PO DAILY [facility] Last Admin: 10/27/16 10:10 Dose: 1 tab Mupirocin (Bactroban 2% Cream -) 1 applic TP BID [facility] Last Admin: 10/27/16 10:10 Dose: 1 applic Trazodone HCl (Desyrel -) 100 mg PO HS [facility] Last Admin: 10/26/16 21:50 Dose: 100 mg - Objective Vital Signs: Vital Signs Temperature 97.8 F 10/27/16 10:00 Pulse Rate 18 L 10/27/16 10:00 Respiratory Rate 20 10/27/16 10:00 Blood Pressure 120/67 10/27/16 10:00 O2 Sat by Pulse Oximetry (%) 95 10/27/16 09:00 Constitutional: Yes: No Distress, Calm Neck: Yes: Supple Cardiovascular: Yes: Regular Rate and Rhythm Respiratory: Yes: Regular, Diminished Gastrointestinal: Yes: Normal Bowel Sounds, Soft Edema: No Labs: CBC, BMP 10/27/16 06:20 10/25/16 06:35 INR, PTT INR 1.53 (0.82-1.09) H D 10/20/16 12:09 Problem List - Problems (1) Bacteremia Code(s): R78.81 - BACTEREMIA (2) Sepsis syndrome Code(s): [id number] - (3) HIV disease Code(s): B20 - HUMAN IMMUNODEFICIENCY VIRUS [HIV] DISEASE (4) Hep C w/o coma, chronic Code(s): B18.2 - CHRONIC VIRAL HEPATITIS C (5) Hypertension Code(s): I10 - ESSENTIAL (PRIMARY) HYPERTENSION Qualifiers: Hypertension type: essential hypertension Qualified Code(s): I10 - Essential (primary) hypertension (6) Thrombocytopenia Code(s): D69.6 - THROMBOCYTOPENIA, UNSPECIFIED Assessment/Plan 10/21/2016 TDS, Grossly normal LV fxn, mild MR and TR 1. Strep equinis bacteremia with cellulitis of left 1st toe r/o endocarditis 2. Leukopenia and thrombocytopenia referable to sepsis 3. HIV on HAART and post Hep C 4. Polysubstance abuse 5. HTN PLAN: 1, Continue Ampicillin course and duration per ID 2. MIKE neg for endocarditis 3. DVT prophylaxis
--- NOTE | 2016-10-27 18:43 | PN ---
Physical Exam: SUBJECTIVE: Patient seen and examined by me at bedside. No overnight events noted. Patient offers no complaints and denies fever, chills, nausea, vomiting , abdominal pain, constipation, diarrhea, chest pain, palpitations, shortness of breath, dizziness, headaches, dysuria, hematuria. OBJECTIVE: Vital Signs Period Temp Pulse Resp BP Sys/Forman Pulse Ox Last 24 Hr 97.5 F-98.9 F 18-76 20-21 120-122/67-82 94-95 GENERAL: Awake, alert, in no acute distress. LUNGS: Rhonchi throughout lung bases bilaterally HEART: Regular rate and rhythm, normal S1 and S2 without murmur, rub or gallop. ABDOMEN: Soft, protruding and distended, nontender. Normoactive bowel sounds LOWER EXTREMITIES: Erythema and tenderness of bilateral legs L>R with wrapping around the left foot c/d/i NEUROLOGICAL: No facial droop. SKIN: Erythema of bilateral lower extremities with no abrasions or drainage Laboratory Results - last 24 hr 10/27/16 10/27/16 06:20 06:20 WBC 3.4 L RBC 3.92 L Hgb 11.9 Hct 35.7 MCV 91.0 MCHC 33.4 RDW 14.3 Plt Count 103 L MPV 8.8 Creatine Kinase 196 D Active Medications Generic Name Dose Route Start Last Admin Trade Name Freq PRN Reason Stop Dose Admin Acetaminophen 500 mg 10/21/16 19:00 10/26/16 21:50 Tylenol - PO 500 mg Q6H PRN Administration FEVER OR PAIN Amlodipine Besylate 5 mg 10/21/16 10:00 10/27/16 10:10 Norvasc - PO 5 mg DAILY HAN Administration Emtricitabine/Rilpivirine/Tenofovir 1 each 10/21/16 10:00 10/27/16 10:11 Complera - PO 1 each DAILY HAN Administration Heparin Sodium (Porcine) 5,000 unit 10/20/16 22:00 10/27/16 10:10 Heparin - SQ 5,000 unit BID HAN Administration Ampicillin Sodium 2 gm/ Sodium 100 mls @ 200 mls/hr 10/24/16 18:00 10/27/16 18: 38 Chloride IVPB 200 mls/hr Q4H-IV HAN Administration Lidocaine 1 patch 10/25/16 18:30 10/27/16 10:12 Lidoderm Patch - TP Not Given DAILY HAN Methadone HCl 80 mg/ Methadone 95 mg 10/22/16 08:00 10/27/16 05:35 HCl 10 mg/ Methadone HCl 5 mg PO 95 mg DAILY@0600 HAN Administration Mirtazapine 15 mg 10/21/16 10:00 10/27/16 10:10 Remeron - PO 15 mg DAILY HAN Administration Miscellaneous 1 each 10/25/16 22:00 10/26/16 21:44 Lidoderm Patch Removal MC Not Given DAILY@2200 [facility] Multivitamins/Minerals/Vitamin C 1 tab 10/21/16 10:00 10/27/16 10:10 Tab-A-Vit - PO 1 tab DAILY HAN Administration Mupirocin 1 applic 10/25/16 09:00 10/27/16 10:10 Bactroban 2% Cream - TP 1 applic BID HAN Administration Trazodone HCl 100 mg 10/20/16 22:00 10/26/16 21:50 Desyrel - PO 100 mg HS HAN Administration IMAGES Chest X-Ray (10/20/16): Cardiomegaly with no signs of pneumonia, atelectasis, pneumothorax, or pleural effusions. No signs of lung mass. CT Head (10/20/16): No acute hemorrhage or infarction. Abdomen/Pelvic/Chest CT (10/20/16): Overall low lung volumes with mosaic lung attenuation is nonspecific and could be secondary to imaging in the expiratory phase or could be secondary to an element of air trapping seen in airway disease. Correlate with clinical history. No focal consolidation or mass seen. 3 to 4 mm right lower lobe groundglass nodule. Follow-up CT scan in 12 months is suggested. Dilated pulmonary trunk at 3.9 cm suggestive of an element of pulmonary hypertension. Bilateral gynecomastia. Marked splenomegaly with splenorenal shunting. This is of unclear etiology. Appendix not visualized however there are no indirect findings of acute appendicitis. Status post cholecystectomy. Duplex of Bilateral Lower Extremities (10/20/16): There is no evidence of deep venous thromboses in both lower extremities. Chest X-Ray (10/22/16): No acute pathology Foot X-Ray (10/24/16): Ulceration at the tip of the big toe. No definite radiographic evidence of osteomyelitis. LOWER EXTREMITY MRI (10/26/16): 1. Soft tissue edema over the dorsal aspect of the forefoot. 2. Bandage over the distal aspect of the first toe distal phalanx with soft tissue edema. 3. No definite evidence of osteomyelitis. If clinical concern for osteomyelitis persists, a follow- up MRI could be obtained. ASSESSMENT/PLAN: Patient is a 55 year old male with a PMHx of treated Hepatitis C, Stable HIV on HAART with last CD4 667 and viral load <20copies, HTN, Polysubstance abuse on Methadone who was brought in by his PCP for fever, shortness of breath, and productive cough. Patient was found to be septic and admitted for further monitoring and management. Sepsis Secondary to possible Cellulitis of left hallux- Improving -Blood cultures positive for Equinos -Second set of blood cultures NGTD -Urine cultures negative -Afebrile overnight -Had deep great toe pulp abscess most likely secondary to self debridement with a hand collator knife. -Wound cultures positive for staph coagulase -MRI negative for osteomyelitis -Podiatry recommend Bone biopsy -Ampicillin 2gm IVPB Q4H day #4, ID recommended a total of 14 days IV abx -MIKE negative for vegetations. -Will need a colonoscopy due to cultures growing strep Equinus, which may cause GI malignancy Acute metabolic Encephalopathy- Resolved -Likely secondary to sepsis vs. Drug intoxication -Patient has history of alcohol and IV drug abuse -Ammonia level normal -Urine toxicology negative except for methadone -Alcohol level negative -Head CT negative RLQ Abdominal Pain- Chronic and Improved -CT Abdo/Pelvis negative for acute pathology Acute Kidney Injury- Resolved -Possibly secondary to rhabdomyolysis -Continue to monitor BMP Rhabdomyolysis-Resolved -CPK 196 -Continue to monitor CPK Thrombocytopenia and Neutropenia- Improving -secondary to sepsis -Today's WBC 3.4 -Today's Platelets 103 -Transfuse if levels <10,000 or <30,000 if actively bleeding HIV- Chronic and Stable -Stable with last CD4 667 and last Viral load <20 copies -Continue with Tenof Df daily Polysubstance Abuse -Denies any recent use -Alcohol level negative -Urine toxicology negative -Continue with Methadone 95mg daily HTN- Controlled -Controlled with Norvasc 5mg daily -Continue to monitor BP Depression -Continue with Remeron 15mg daily -Continue Trazadone 100mg HS F/E/N -On no fluids -Electrolytes wnl -Sodium controlled diet Prophylaxis -Heparin 5000 units BID SQ for DVT Disposition -Bone biopsy to be done in the am Visit type - Emergency Visit Emergency Visit: Yes ED Registration Date: 10/20/16 Care time: The patient presented to the Emergency Department on the above date and was hospitalized for further evaluation of their emergent condition. - New Patient This patient is new to me today: No - Critical Care Critical Care patient: No
[2016-10-27] MEDS: LIDOCAINE PATCH REMOVAL MC SCH (21:38)
[2016-10-27] MEDS: traZODone HCL 50 MG TABLET (FP) PO SCH (21:38)
[2016-10-28] MEDS: AMPICILLIN - 2 GM in SODIUM CHLORIDE 100 ML IVPB SCH ×6 (01:11→21:11)
[2016-10-28] MEDS ORDERED: METHADONE HCL 10 MG TABLET ONE (05:23)
[2016-10-28] MEDS ORDERED: METHADONE HCL 40 MG DISPERSABLE TABLET ONE (05:23)
[2016-10-28] MEDS ORDERED: METHADONE HCL 5 MG TABLET ONE (05:24)
[2016-10-28] MEDS: METHADONE 80 MG, METHADONE 10 MG, METHADONE 5 MG PO SCH (05:25)
--- NOTE | 2016-10-28 07:35 | PN ---
Teaching Attending Note Name of Resident: Bri Mars ATTENDING PHYSICIAN STATEMENT I saw and evaluated the patient. I reviewed the resident's note and discussed the case with the resident. I agree with the resident's findings and plan as documented. SUBJECTIVE: The patient is a 55 year old male with a significant past medical history of treated Hepatitis C, stable HIV (on HAART), HTN, past polysubstance abuse (on Methadone) who was admitted with sepsis and bacteremia secondary to cellulitis and is pending bone biopsy today by podiatry to r/o occult osteomyelitis despite negative MRI. He would like to leave AMA but has agreed to bone biposy with the understanding that he will leave afterward. He has refused further inpatient treatment and well as picc line placement for outpatient IV antibiotics. Resident had an extensive discussion with him about his diagnosis and the risks of leaving the hospital AMA. OBJECTIVE: Vitals noted ASSESSMENT AND PLAN: Await bone bx Anticipate discharge AMA on oral amoxicillin per ID See resident note for full details
[2016-10-28 08:18] LABS: MCH 30.4 pg (25.7-33.7); MCHC 33.6 g/dl (32.0-35.9); MEAN CELL VOLUME 90.5 fl (80-96); MEAN PLT VOLUME 8.3 fl (7.5-11.1); PLATELET COUNT 118 K/MM3 (134-434); RDW 14.4 % (11.9-15.9); WHITE BLOOD COUNT 4.1 K/mm3 (4.0-10.0)
[2016-10-28] MEDS ORDERED: LIDOCAINE 1%/EPI 1:100000 (50 ML MULTI DOSE VIAL) INF ONE (08:33)
--- NOTE | 2016-10-28 08:48 | PN ---
Physical Exam: SUBJECTIVE: Patient seen and examined by me at bedside. No overnight events noted. Patient reports feeling better with no pain to his leg. However, patient wants to leave AMA due to personal issues he has to deal with. Tried to explain to patient that he needs the bone biopsy to be done and a PICC line placed for antibiotics. Otherwise, patient denies fever, chills, nausea, vomiting, abdominal pain, chest pain, palpitations, shortness of breath, dizziness, weakness. OBJECTIVE: Vital Signs Period Temp Pulse Resp BP Sys/Forman Pulse Ox Last 24 Hr 97.5 F-98.6 F 18-76 18-20 120-134/67-80 95 GENERAL: Awake, alert, in no acute distress. LUNGS: Rhonchi throughout lung bases bilaterally HEART: Regular rate and rhythm, normal S1 and S2 without murmur, rub or gallop. ABDOMEN: Soft, protruding and distended, nontender. Normoactive bowel sounds LOWER EXTREMITIES: Erythema and tenderness of bilateral legs L>R with wrapping around the left foot c/d/i NEUROLOGICAL: No facial droop. SKIN: Erythema of bilateral lower extremities with no abrasions or drainage Laboratory Results - last 24 hr 10/28/16 07:35 WBC 4.1 RBC 4.01 Hgb 12.2 Hct 36.3 MCV 90.5 MCHC 33.6 RDW 14.4 Plt Count 118 L MPV 8.3 Active Medications Generic Name Dose Route Start Last Admin Trade Name Freq PRN Reason Stop Dose Admin Acetaminophen 500 mg 10/21/16 19:00 10/26/16 21:50 Tylenol - PO 500 mg Q6H PRN Administration FEVER OR PAIN Amlodipine Besylate 5 mg 10/21/16 10:00 10/27/16 10:10 Norvasc - PO 5 mg DAILY HAN Administration Emtricitabine/Rilpivirine/Tenofovir 1 each 10/21/16 10:00 10/27/16 10:11 Complera - PO 1 each DAILY HAN Administration Ampicillin Sodium 2 gm/ Sodium 100 mls @ 200 mls/hr 10/24/16 18:00 10/28/16 05: 26 Chloride IVPB 200 mls/hr Q4H-IV HAN Administration Lidocaine 1 patch 10/25/16 18:30 10/27/16 10:12 Lidoderm Patch - TP Not Given DAILY HAN Methadone HCl 80 mg/ Methadone 95 mg 10/22/16 08:00 10/28/16 05:25 HCl 10 mg/ Methadone HCl 5 mg PO 95 mg DAILY@0600 HAN Administration Mirtazapine 15 mg 10/21/16 10:00 10/27/16 10:10 Remeron - PO 15 mg DAILY HAN Administration Miscellaneous 1 each 10/25/16 22:00 10/27/16 21:38 Lidoderm Patch Removal MC Not Given DAILY@2200 [facility] Multivitamins/Minerals/Vitamin C 1 tab 10/21/16 10:00 10/27/16 10:10 Tab-A-Vit - PO 1 tab DAILY HAN Administration Mupirocin 1 applic 10/25/16 09:00 10/27/16 21:37 Bactroban 2% Cream - TP 1 applic BID HAN Administration Trazodone HCl 100 mg 10/20/16 22:00 10/27/16 21:38 Desyrel - PO 100 mg HS HAN Administration IMAGES Chest X-Ray (10/20/16): Cardiomegaly with no signs of pneumonia, atelectasis, pneumothorax, or pleural effusions. No signs of lung mass. CT Head (10/20/16): No acute hemorrhage or infarction. Abdomen/Pelvic/Chest CT (10/20/16): Overall low lung volumes with mosaic lung attenuation is nonspecific and could be secondary to imaging in the expiratory phase or could be secondary to an element of air trapping seen in airway disease. Correlate with clinical history. No focal consolidation or mass seen. 3 to 4 mm right lower lobe groundglass nodule. Follow-up CT scan in 12 months is suggested. Dilated pulmonary trunk at 3.9 cm suggestive of an element of pulmonary hypertension. Bilateral gynecomastia. Marked splenomegaly with splenorenal shunting. This is of unclear etiology. Appendix not visualized however there are no indirect findings of acute appendicitis. Status post cholecystectomy. Duplex of Bilateral Lower Extremities (10/20/16): There is no evidence of deep venous thromboses in both lower extremities. Chest X-Ray (10/22/16): No acute pathology Foot X-Ray (10/24/16): Ulceration at the tip of the big toe. No definite radiographic evidence of osteomyelitis. LOWER EXTREMITY MRI (10/26/16): 1. Soft tissue edema over the dorsal aspect of the forefoot. 2. Bandage over the distal aspect of the first toe distal phalanx with soft tissue edema. 3. No definite evidence of osteomyelitis. If clinical concern for osteomyelitis persists, a follow- up MRI could be obtained. ASSESSMENT/PLAN: Patient is a 55 year old male with a PMHx of treated Hepatitis C, Stable HIV on HAART with last CD4 667 and viral load <20copies, HTN, Polysubstance abuse on Methadone who was brought in by his PCP for fever, shortness of breath, and productive cough. Patient was found to be septic and admitted for further monitoring and management. Sepsis Secondary to possible Cellulitis of left hallux- Improving -Blood cultures positive for Equinos -Afebrile overnight -Had deep great toe pulp abscess most likely secondary to self debridement with a jeweler apprentice knife. -Wound cultures positive for staph coagulase -MRI negative for osteomyelitis -Bone biopsy to be done today -Ampicillin 2gm IVPB Q4H day #5, but a total of 7 days of IV antibiotics. ID would like a total of 14 days -MIKE negative for vegetations. -Will need a colonoscopy due to cultures growing strep Equinus, which may cause GI malignancy Acute metabolic Encephalopathy- Resolved -Likely secondary to sepsis vs. Drug intoxication -Patient has history of alcohol and IV drug abuse -Ammonia level normal -Urine toxicology negative except for methadone -Alcohol level negative -Head CT negative RLQ Abdominal Pain- Chronic and Improved -CT Abdo/Pelvis negative for acute pathology Acute Kidney Injury- Resolved -Possibly secondary to rhabdomyolysis -Continue to monitor BMP Rhabdomyolysis-Resolved Thrombocytopenia and Neutropenia- Improving -secondary to sepsis -Today's WBC 4.1 -Today's Platelets 118 -Transfuse if levels <10,000 or <30,000 if actively bleeding HIV- Chronic and Stable -Stable with last CD4 667 and last Viral load <20 copies -Continue with Tenof Df daily Polysubstance Abuse -Denies any recent use -Alcohol level negative -Urine toxicology negative -Continue with Methadone 95mg daily HTN- Controlled -Controlled with Norvasc 5mg daily -Continue to monitor BP Depression -Continue with Remeron 15mg daily -Continue Trazadone 100mg HS F/E/N -On no fluids -Electrolytes wnl -Sodium controlled diet Prophylaxis -Heparin 5000 units BID SQ for DVT Disposition -Bone biopsy to be done today, however, patient would like to leave AMA. Explained the risks and dangers of leaving AMA. Patient verbalized understanding. Visit type - Emergency Visit Emergency Visit: Yes ED Registration Date: 10/20/16 Care time: The patient presented to the Emergency Department on the above date and was hospitalized for further evaluation of their emergent condition. - New Patient This patient is new to me today: No - Critical Care Critical Care patient: No
[2016-10-28] MEDS ORDERED: LIDOCAINE 1%/EPI 1:100000 (50 ML MULTI DOSE VIAL) ONE (09:04)
[2016-10-28] MEDS ORDERED: MIDAZOLAM HCL 2 MG/2 ML SINGLE DOSE VIAL ONE (09:22)
--- NOTE | 2016-10-28 09:49 | OP ---
Operative Note - Note: Operative Date: 10/28/16 Pre-Operative Diagnosis: Ulceration/Possible osteomyelitis Operation: Debridement to fascia and bone biopsy distal phalanx left great toe Findings: Profound 24 hour 1 cam undermining Surgeon: Vince Sim Dobby Loom Fixer: 2,[employer] (Dr. Anguiano) Specimens Removed: necrotic tissue and bone Estimated Blood Loss (mls): 5 Instrument used (Debridements only): scalpel and bone trocar Operative Report Dictated: Yes
[2016-10-28] MEDS ORDERED: ACETAMINOPHEN 500 MG TABLET (FP) PO PRN (09:51)
--- NOTE | 2016-10-28 10:11 | OP ---
DATE OF OPERATION: PROCEDURE: Debridement to the level of the fascia and bone biopsy of the great toe of the left foot. PREOPERATIVE DIAGNOSIS: Self-induced ulceration and possible osteomyelitis. POSTOPERATIVE DIAGNOSIS: Self-induced ulceration and possible osteomyelitis. ANESTHESIA: Sedated local filtration with monitored anesthesia care. SURGEON: Dr. Edu Sim TECHNICAL SERVICES SPECIALIST: Podiatric resident, Dr. Albert Anguiano CLINICAL INDICATIONS: This is a patient who performed a self-debridement with a blackener knife on the great toe of the left foot for a hyperkeratotic lesion and caused a localized cellulitis. An incision and drainage was performed 4 days prior to this procedure. MRI is possibly suggestive of osteomyelitis. The patient has profound ulceration with 12-hour (12 o'clock to 12 o'clock) undermining requiring surgical debridement. The patient, who has some degree of cognitive impairment, and also has a history of HIV disease, hepatitis C, and is a previous intravenous drug abuser. DESCRIPTION OF PROCEDURE: After prepping the patient in the usual manner, the left great toe was exsanguinated with the use of a Cher drain, and a [place] drain was applied to the base of the toe as a tourniquet. A stab incision was made adjacent to the ulceration. With the use of a Jamshidi-type needle, bone samples were sent to microbiology. The wound itself is inspected. The wound probed to bone with 12- hour undermining of approximately 1 cm around. Debridement of all necrotic tissue to the level of the fascia/dung-osseous structures was then performed. The tourniquet was removed, and the wound was then dressed. Post debridement measurements were 2.1 x 1.9 cm. EDU SIM DPM [id number] MTDD
[2016-10-28] MEDS: LIDOCAINE 5% TOPICAL PATCH TP SCH (12:09)
[2016-10-28] MEDS: MIRTAZAPINE 15 MG TABLET (FP) PO SCH (12:09)
[2016-10-28] MEDS: MULTIVITAMINS (DAILY MVI) TABLET (FP) PO SCH (12:09)
[2016-10-28] MEDS: amLODIPine BESYLATE 5 MG TABLET (FP) PO SCH (12:09)
[2016-10-28] MEDS: EMTRICITAB/RILPIVIRINE/TENOFOV 1 EACH TABLET PO SCH (12:10)
[2016-10-28] MEDS: MUPIROCIN CA 2% TOPICAL CREAM 15 GM TUBE TP SCH ×2 (12:10→22:18)
--- NOTE | 2016-10-28 13:06 | PN ---
Progress Note, Physician History of Present Illness: Afebrile, tolerating abx therapy. - Current Medication List Current Medications: Active Medications Acetaminophen (Tylenol -) 500 mg PO Q6H PRN PRN Reason: FEVER OR PAIN Amlodipine Besylate (Norvasc -) 5 mg PO DAILY [facility] Last Admin: 10/28/16 12:09 Dose: 5 mg Emtricitabine/Rilpivirine/Tenofovir (Complera -) 1 each PO DAILY [facility] Last Admin: 10/28/16 12:10 Dose: 1 each Ampicillin Sodium 2 gm/ Sodium (Chloride) 100 mls @ 200 mls/hr IVPB Q4H-IV [facility] Last Admin: 10/28/16 12:08 Dose: 200 mls/hr Lidocaine (Lidoderm Patch -) 1 patch TP DAILY [facility] Last Admin: 10/28/16 12:09 Dose: Not Given Methadone HCl 80 mg/ Methadone (HCl 10 mg/ Methadone HCl 5 mg) 95 mg PO DAILY@ 0600 [facility] Mirtazapine (Remeron -) 15 mg PO DAILY [facility] Last Admin: 10/28/16 12:09 Dose: 15 mg Miscellaneous (Lidoderm Patch Removal) 1 each MC DAILY@2200 [facility] Multivitamins/Minerals/Vitamin C (Tab-A-Vit -) 1 tab PO DAILY [facility] Last Admin: 10/28/16 12:09 Dose: 1 tab Mupirocin (Bactroban 2% Cream -) 1 applic TP BID [facility] Last Admin: 10/28/16 12:10 Dose: Not Given Trazodone HCl (Desyrel -) 100 mg PO [facility] - Objective Vital Signs: Vital Signs Temperature 98.0 F 10/28/16 10:30 Pulse Rate 62 10/28/16 10:30 Respiratory Rate 18 10/28/16 10:30 Blood Pressure 102/62 10/28/16 10:30 O2 Sat by Pulse Oximetry (%) 97 10/28/16 10:30 Constitutional: Yes: No Distress, Calm Neck: Yes: Supple Cardiovascular: Yes: Regular Rate and Rhythm, Murmur (1/6 SM) Respiratory: Yes: Regular, Diminished Gastrointestinal: Yes: Normal Bowel Sounds, Soft Edema: LLE: Trace, RLE: Trace Labs: CBC, BMP 10/28/16 07:35 10/25/16 06:35 INR, PTT INR 1.53 (0.82-1.09) H D 10/20/16 12:09 Problem List - Problems (1) Bacteremia Code(s): R78.81 - BACTEREMIA (2) Sepsis syndrome Code(s): VPS2314 - (3) HIV disease Code(s): B20 - HUMAN IMMUNODEFICIENCY VIRUS [HIV] DISEASE (4) Hep C w/o coma, chronic Code(s): B18.2 - CHRONIC VIRAL HEPATITIS C (5) Hypertension Code(s): I10 - ESSENTIAL (PRIMARY) HYPERTENSION Qualifiers: Hypertension type: essential hypertension Qualified Code(s): I10 - Essential (primary) hypertension (6) Thrombocytopenia Code(s): D69.6 - THROMBOCYTOPENIA, UNSPECIFIED (7) Osteomyelitis of ankle or foot Code(s): M86.9 - OSTEOMYELITIS, UNSPECIFIED Assessment/Plan 10/21/2016 TDS, Grossly normal LV fxn, mild MR and TR 1. Strep equinis bacteremia with cellulitis and osteo of left 1st toe post bone biopsy 2. Leukopenia and thrombocytopenia referable to sepsis 3. HIV on HAART and post Hep C treatment 4. Polysubstance abuse 5. HTN PLAN: 1, Currently on Ampicillin course and duration per ID, but refuses PICC line placement 2. MIKE neg for endocarditis 3. Planning to leave AMA on oral amoxicillin despite counselling to the contrary
[2016-10-28] MEDS ORDERED: PT OWN MED DRAWER 7, Y5N ONE (17:50)
[2016-10-28] MEDS ORDERED: IBUPROFEN 800 MG/8 ML IJ IVPB ONE (21:03)
[2016-10-28] MEDS: traZODone HCL 50 MG TABLET (FP) PO SCH (21:10)
[2016-10-28] MEDS: LIDOCAINE PATCH REMOVAL MC SCH (21:12)
[2016-10-28] MEDS ORDERED: LIDOCAINE PATCH REMOVAL MC SCH (22:00)
[2016-10-29] MEDS: AMPICILLIN - 2 GM in SODIUM CHLORIDE 100 ML IVPB SCH ×6 (01:18→21:37)
[2016-10-29] MEDS ORDERED: METHADONE HCL 5 MG TABLET ONE (05:49)
[2016-10-29] MEDS ORDERED: METHADONE HCL 10 MG TABLET ONE (05:49)
[2016-10-29] MEDS ORDERED: METHADONE HCL 40 MG DISPERSABLE TABLET ONE (05:49)
[2016-10-29] MEDS: METHADONE 80 MG, METHADONE 10 MG, METHADONE 5 MG PO SCH (05:55)
[2016-10-29 08:14] LABS: MCH 30.5 pg (25.7-33.7); MCHC 33.4 g/dl (32.0-35.9); MEAN CELL VOLUME 91.2 fl (80-96); MEAN PLT VOLUME 8.7 fl (7.5-11.1); PLATELET COUNT 118 K/MM3 (134-434); RDW 14.8 % (11.9-15.9); WHITE BLOOD COUNT 3.7 K/mm3 (4.0-10.0)
[2016-10-29] MEDS ORDERED: PT OWN MED DRAWER 7, Y5N ONE ×2 (09:37→14:27)
[2016-10-29] MEDS: MULTIVITAMINS (DAILY MVI) TABLET (FP) PO SCH (09:44)
[2016-10-29] MEDS: MIRTAZAPINE 15 MG TABLET (FP) PO SCH (09:44)
[2016-10-29] MEDS: amLODIPine BESYLATE 5 MG TABLET (FP) PO SCH (09:44)
[2016-10-29] MEDS: EMTRICITAB/RILPIVIRINE/TENOFOV 1 EACH TABLET PO SCH (09:45)
[2016-10-29] MEDS: LIDOCAINE 5% TOPICAL PATCH TP SCH (09:45)
[2016-10-29] MEDS: MUPIROCIN CA 2% TOPICAL CREAM 15 GM TUBE TP SCH ×2 (09:45→21:40)
--- NOTE | 2016-10-29 14:17 | PN ---
Physical Exam: SUBJECTIVE: Patient seen and examined OBJECTIVE: Vital Signs Period Temp Pulse Resp BP Sys/Forman Pulse Ox Last 24 Hr 97.8 F-99.3 F 58-67 16-20 101-126/46-79 98 GENERAL: The patient is awake, alert, and fully oriented, in no acute distress. HEAD: Normal with no signs of trauma. EYES: PERRL, extraocular movements intact, sclera anicteric, conjunctiva clear. No ptosis. ENT: Ears normal, nares patent, oropharynx clear without exudates, moist mucous membranes. NECK: Trachea midline, full range of motion, supple. LUNGS: Breath sounds equal, clear to auscultation bilaterally, no wheezes, no crackles, no accessory muscle use. HEART: Regular rate and rhythm, S1, S2 without murmur, rub or gallop. ABDOMEN: Soft, nontender, nondistended, normoactive bowel sounds, no guarding, no rebound, no hepatosplenomegaly, no masses. EXTREMITIES: Left foot dressing clean, intact NEUROLOGICAL: Cranial nerves II through XII grossly intact. Normal speech, gait not observed. Laboratory Results - last 24 hr 10/29/16 06:40 WBC 3.7 L RBC 3.93 L Hgb 12.0 Hct 35.9 MCV 91.2 MCHC 33.4 RDW 14.8 Plt Count 118 L MPV 8.7 Active Medications Generic Name Dose Route Start Last Admin Trade Name Freq PRN Reason Stop Dose Admin Acetaminophen 500 mg 10/28/16 09:51 Tylenol - PO Q6H PRN FEVER OR PAIN Amlodipine Besylate 5 mg 10/28/16 10:00 10/29/16 09:44 Norvasc - PO 5 mg DAILY HAN Administration Emtricitabine/Rilpivirine/Tenofovir 1 each 10/28/16 10:00 10/29/16 09:45 Complera - PO 1 each DAILY HAN Administration Ampicillin Sodium 2 gm/ Sodium 100 mls @ 200 mls/hr 10/28/16 10:00 10/29/16 09: 42 Chloride IVPB 200 mls/hr Q4H-IV HAN Administration Lidocaine 1 patch 10/28/16 10:00 10/29/16 09:45 Lidoderm Patch - TP Not Given DAILY HAN Methadone HCl 80 mg/ Methadone 95 mg 10/29/16 06:00 10/29/16 05:55 HCl 10 mg/ Methadone HCl 5 mg PO 95 mg DAILY@0600 HAN Administration Mirtazapine 15 mg 10/28/16 10:00 10/29/16 09:44 Remeron - PO 15 mg DAILY HAN Administration Miscellaneous 1 each 10/28/16 22:00 10/28/16 21:12 Lidoderm Patch Removal MC Not Given DAILY@2200 [facility] Multivitamins/Minerals/Vitamin C 1 tab 10/28/16 10:00 10/29/16 09:44 Tab-A-Vit - PO 1 tab DAILY HAN Administration Mupirocin 1 applic 10/28/16 10:00 10/29/16 09:45 Bactroban 2% Cream - TP 1 applic BID HAN Administration Trazodone HCl 100 mg 10/28/16 22:00 10/28/16 21:10 Desyrel - PO 100 mg HS HAN Administration ASSESSMENT/PLAN 55 year-old male with a significant PMH of treated HTN, past polysubstance abuse (on Methadone), Hepatitis C, and stable HIV (on HAART), who was admitted with sepsis and bacteremia secondary to cellulitis and is pending bone biopsy to r/o occult osteomyelitis despite negative MRI. Strep equinis bacteremia with cellulitis of left first toe, r/o osteo Sepsis, resolved Acute metabolic encephalopathy, resolved --continue ampicillin pending results of bone biopsy --ID following Hypertension --BP well-controlled, continue amlodipine Hep C, treated --stable HIV --continue Complera Polysubstance abuse --continue methadone F/E/N Fluids: PO intake adequate Electrolytes: replete as indicated Nutrition: low sodium DVT prophylaxis: subq heparin, oob, ambulation Dispo: continues to require inpatient care. Full Code. Visit type - Emergency Visit Emergency Visit: Yes ED Registration Date: 10/20/16 Care time: The patient presented to the Emergency Department on the above date and was hospitalized for further evaluation of their emergent condition. - New Patient This patient is new to me today: Yes Date on this admission: 10/29/16 - Critical Care Critical Care patient: No
[2016-10-29] MEDS: HEPARIN NA (PORCINE) 5,000 UNITS/ML 1ML VIAL SQ SCH (21:37)
[2016-10-29] MEDS: traMADol HCL 50 MG TABLET PO PRN (21:37)
[2016-10-29] MEDS: traZODone HCL 50 MG TABLET (FP) PO SCH (21:38)
[2016-10-29] MEDS: LIDOCAINE PATCH REMOVAL MC SCH (21:40)
[2016-10-30] MEDS: AMPICILLIN - 2 GM in SODIUM CHLORIDE 100 ML IVPB SCH ×6 (01:29→21:44)
[2016-10-30] MEDS ORDERED: METHADONE HCL 40 MG DISPERSABLE TABLET ONE (05:55)
[2016-10-30] MEDS ORDERED: METHADONE HCL 10 MG TABLET ONE (05:55)
[2016-10-30] MEDS ORDERED: METHADONE HCL 5 MG TABLET ONE (05:55)
[2016-10-30] MEDS: METHADONE 80 MG, METHADONE 10 MG, METHADONE 5 MG PO SCH (06:01)
--- NOTE | 2016-10-30 08:17 | PN ---
Teaching Attending Note Name of Resident: Bri Masr ATTENDING PHYSICIAN STATEMENT I saw and evaluated the patient. I reviewed the resident's note and discussed the case with the resident. I agree with the resident's findings and plan as documented. SUBJECTIVE: Patient is feeling better, states that his appetite is good now. Denies any fever or chills, no shortness of breath. no headache. OBJECTIVE: Vital Signs Temperature 98.4 F 10/30/16 05:30 Pulse Rate 72 10/30/16 05:30 Respiratory Rate 20 10/30/16 05:30 Blood Pressure 133/64 10/30/16 05:30 O2 Sat by Pulse Oximetry (%) 96 10/29/16 21:00 CBCD WBC 3.7 K/mm3 (4.0-10.0) L 10/29/16 06:40 RBC 3.93 M/mm3 (4.00-5.60) L 10/29/16 06:40 Hgb 12.0 GM/dL (11.7-16.9) 10/29/16 06:40 Hct 35.9 % (35.4-49) 10/29/16 06:40 MCV 91.2 fl (80-96) 10/29/16 06:40 MCHC 33.4 g/dl (32.0-35.9) 10/29/16 06:40 RDW 14.8 % (11.9-15.9) 10/29/16 06:40 Plt Count 118 K/MM3 (134-434) L 10/29/16 06:40 MPV 8.7 fl (7.5-11.1) 10/29/16 06:40 CMP Sodium 138 mmol/L (136-145) 10/25/16 06:35 Potassium 3.8 mmol/L (3.5-5.1) 10/25/16 06:35 Chloride 102 mmol/L (98-107) 10/25/16 06:35 Carbon Dioxide 26 mmol/L (21-32) 10/25/16 06:35 Anion Gap 10 (8-16) 10/25/16 06:35 BUN 8 mg/dL (7-18) D 10/25/16 06:35 Creatinine 1.0 mg/dL (0.7-1.3) 10/25/16 06:35 Creat Clearance w eGFR > 60 (>60) 10/23/16 07:20 Random Glucose 84 mg/dL (74-106) 10/25/16 06:35 Calcium 8.7 mg/dL (8.5-10.1) 10/25/16 06:35 Total Bilirubin 1.0 mg/dL (0.2-1.0) 10/23/16 07:20 AST 182 U/L (15-37) H 10/23/16 07:20 ALT 53 U/L (12-78) 10/23/16 07:20 Alkaline Phosphatase 113 U/L (45-117) 10/23/16 07:20 Total Protein 6.5 g/dl (6.4-8.2) 10/23/16 07:20 Albumin 2.7 g/dl (3.4-5.0) L 10/23/16 07:20 CARDIAC ENZYMES Creatine Kinase 196 IU/L (39-308) D 10/27/16 06:20 Troponin I < 0.02 ng/ml (0.00-0.05) 10/20/16 12:09 Current Medications Generic Name Dose Route Start Last Admin Trade Name Freq PRN Reason Stop Dose Admin Acetaminophen 500 mg 10/28/16 09:51 Tylenol - PO Q6H PRN FEVER OR PAIN Amlodipine Besylate 5 mg 10/28/16 10:00 10/29/16 09:44 Norvasc - PO 5 mg DAILY HAN Administration Emtricitabine/Rilpivirine/Tenofovir 1 each 10/28/16 10:00 10/29/16 09:45 Complera - PO 1 each DAILY HAN Administration Heparin Sodium (Porcine) 5,000 unit 10/29/16 22:00 10/29/16 21:37 Heparin - SQ 5,000 unit BID HAN Administration Ampicillin Sodium 2 gm/ Sodium 100 mls @ 200 mls/hr 10/28/16 10:00 10/30/16 06: 01 Chloride IVPB 200 mls/hr Q4H-IV HAN Administration Lidocaine 1 patch 10/28/16 10:00 10/29/16 09:45 Lidoderm Patch - TP Not Given DAILY HAN Methadone HCl 80 mg/ Methadone 95 mg 10/29/16 06:00 10/30/16 06:01 HCl 10 mg/ Methadone HCl 5 mg PO 95 mg DAILY@0600 HAN Administration Mirtazapine 15 mg 10/28/16 10:00 10/29/16 09:44 Remeron - PO 15 mg DAILY HAN Administration Miscellaneous 1 each 10/28/16 22:00 10/29/16 21:40 Lidoderm Patch Removal MC Not Given DAILY@2200 [facility] Multivitamins/Minerals/Vitamin C 1 tab 10/28/16 10:00 10/29/16 09:44 Tab-A-Vit - PO 1 tab DAILY HAN Administration Mupirocin 1 applic 10/28/16 10:00 10/29/16 21:40 Bactroban 2% Cream - TP 1 applic BID HAN Administration Tramadol HCl 50 mg 10/29/16 20:17 10/29/16 21:37 Ultram - PO 50 mg Q6H PRN Administration PAIN Trazodone HCl 100 mg 10/28/16 22:00 10/29/16 21:38 Desyrel - PO 100 mg HS HAN Administration Home Medications Medication Instructions Recorded Methadone [Dolophine -] 65 mg PO DAILY 04/15/15 Mirtazapine [Remeron -] 15 mg PO DAILY #30 tablet 10/05/16 Trazodone HCl 100 mg PO HS #60 tablet 10/05/16 Amlodipine Besylate [Norvasc -] 5 mg PO DAILY #30 tablet 10/20/16 Ciprofloxacin [Cipro (Restricted 500 mg PO Q12H #20 tablet 10/20/16 To Id)] Emtricita/Rilpivirine/Tenof Df 1 each PO DAILY #30 tablet 10/20/16 [Complera Tablet] Ibuprofen 800 mg PO Q8H #10 tablet 10/20/16 Multivitamins [Multivit ([facility] 1 tab PO DAILY #30 tab 10/20/16 Formulary)] Terbinafine HCl [Lamisil] 250 mg PO DAILY #30 tablet 10/20/16 Vit B6/Me-Thfolate/Me-B12/Ala 1 cap PO DAILY #30 capsule 10/20/16 [Podiapn Capsule] chest: Decreased bs bl, otherwise clear. Heart:S1S2 positive Right Foot: positive for wrapping. Microbiology 10/28/16 11:30 Wound-Other Gram Stain - Final 10/28/16 11:30 Wound-Other Wound Culture - Preliminary NO GROWTH OBTAINED AFTER 24 HOURS INCUBATION, REINCUBATED. 10/26/16 06:00 Sputum - Expectorated Gram Stain - Final 10/26/16 06:00 Sputum - Expectorated Sputum Culture - Final Yeast Like Organism 10/20/16 20:30 Nasopharyngeal Swab Respiratory Virus Panel - Final 10/24/16 19:15 Toe - Left Hallux Gram Stain - Final 10/24/16 19:15 Toe - Left Hallux Wound Culture - Final Staphylococcus Coagulase Neg Staphylococcus Coagulase Neg#2 Diphtheroid/Corynebacterium 10/20/16 12:09 Blood - Peripheral Venous Blood Culture - Final Streptococcus Equinus 2 10/22/16 07:00 Blood - Peripheral Venous Blood Culture - Final NO GROWTH AFTER 5 DAYS INCUBATION 10/22/16 07:00 Blood - Peripheral Venous Blood Culture - Final NO GROWTH AFTER 5 DAYS INCUBATION 10/20/16 12:09 Blood - Peripheral Venous Blood Culture - Preliminary Streptococcus Equinus 2 10/20/16 13:21 Urine - Urine Clean Catch Urine Culture - Final 10/20/16 17:44 Urine For Antigen Detection Legionella Antigen - Final 10/20/16 17:44 Urine For Antigen Detection Streptococcus pneumoniae Antigen (M - Final 10/20/16 20:30 Nasopharyngeal Swab Influenza Types A,B Antigen (TOÑO) - Final 10/20/16 20:30 Nasopharyngeal Swab - Final ASSESSMENT AND PLAN: 55 year-old male with a significant PMH of treated HTN, past polysubstance abuse (on Methadone), Hepatitis C, and stable HIV (on HAART), who was admitted with sepsis and bacteremia secondary to cellulitis and is pending bone biopsy to r/o occult osteomyelitis despite negative MRI. #Strep equinis bacteremia with cellulitis of left first toe, r/o osteo; Bone Bx is pending, waiting for the result. Culture is sensitive to Ampicillin 2gm IV continue as per ID. s/p Sepsis, resolved # s/p Acute metabolic encephalopathy, resolved #Hypertension contolled continue amlodipine #hx of Hep C, treated; stable #HIV continue Complera #Polysubstance abuse continue methadone DVT prophylaxis: subq heparin, oob, ambulation Full Code.
[2016-10-30 08:27] LABS: ALBUMIN 2.7 g/dl (3.4-5.0); ALK PHOS 147 U/L (45-117); ANION GAP 7 (8-16); BILIRUBIN,TOTAL 0.7 mg/dL (0.2-1.0); CALCIUM 8.3 mg/dL (8.5-10.1); CO2 29 mmol/L (21-32); CREATININE 1.1 mg/dL (0.7-1.3); GLUCOSE,RANDOM 81 mg/dL (74-106); MAGNESIUM 1.9 mg/dL (1.8-2.4); SGPT/ALT 134 U/L (12-78); TOT PROT 7.4 g/dl (6.4-8.2)
[2016-10-30 08:28] LABS: SGOT/AST 414 U/L (15-37)
[2016-10-30 08:31] LABS: BASOPHIL 0.8 % (0-2.0); EOSINOPHIL 2.8 % (0-4.5); MCH 30.5 pg (25.7-33.7); MCHC 33.4 g/dl (32.0-35.9); MEAN CELL VOLUME 91.4 fl (80-96); MEAN PLT VOLUME 8.6 fl (7.5-11.1); NEUTROPHILS 38.6 % (42.8-82.8); PLATELET COUNT 129 K/MM3 (134-434); RDW 14.8 % (11.9-15.9); WHITE BLOOD COUNT 4.6 K/mm3 (4.0-10.0)
[2016-10-30] MEDS ORDERED: PT OWN MED DRAWER 7, Y5N ONE ×3 (09:08→21:42)
[2016-10-30] MEDS: MIRTAZAPINE 15 MG TABLET (FP) PO SCH (09:19)
[2016-10-30] MEDS: amLODIPine BESYLATE 5 MG TABLET (FP) PO SCH (09:19)
[2016-10-30] MEDS: EMTRICITAB/RILPIVIRINE/TENOFOV 1 EACH TABLET PO SCH (09:19)
[2016-10-30] MEDS: MULTIVITAMINS (DAILY MVI) TABLET (FP) PO SCH (09:19)
[2016-10-30] MEDS: LIDOCAINE 5% TOPICAL PATCH TP SCH (09:19)
[2016-10-30] MEDS: HEPARIN NA (PORCINE) 5,000 UNITS/ML 1ML VIAL SQ SCH ×2 (09:20→21:45)
[2016-10-30] MEDS: MUPIROCIN CA 2% TOPICAL CREAM 15 GM TUBE TP SCH ×2 (09:23→21:45)
--- NOTE | 2016-10-30 10:29 | PN ---
Physical Exam: SUBJECTIVE: Patient seen and examined by me at bedside. No overnight events noted. Patient wants to go home and is becoming frustrated. Otherwise, denies any fever, chills, nausea, vomiting, abdominal pain, chest pain, palpitations, shortness of breath, headaches. OBJECTIVE: Vital Signs Period Temp Pulse Resp BP Sys/Forman Pulse Ox Last 24 Hr 98.0 F-98.4 F 58-72 18-20 130-134/64-87 96 GENERAL: Awake, alert, in no acute distress. LUNGS: CTA bilaterally, no wheezes or crackles. HEART: Regular rate and rhythm, normal S1 and S2 without murmur, rub or gallop. ABDOMEN: Soft, protruding and distended, nontender. Normoactive bowel sounds LOWER EXTREMITIES: Erythema and tenderness of bilateral legs L>R with wrapping around the left foot c/d/i NEUROLOGICAL: No facial droop. SKIN: Erythema of bilateral lower extremities with no abrasions or drainage Laboratory Results - last 24 hr 10/30/16 10/30/16 06:45 06:45 WBC 4.6 RBC 3.95 L Hgb 12.1 Hct 36.1 MCV 91.4 MCHC 33.4 RDW 14.8 Plt Count 129 L MPV 8.6 Neutrophils % 38.6 L Lymphocytes % 47.7 H Monocytes % 10.1 Eosinophils % 2.8 Basophils % 0.8 Sodium 140 Potassium 4.0 Chloride 104 Carbon Dioxide 29 Anion Gap 7 L BUN 10 D Creatinine 1.1 Creat Clearance w eGFR > 60 Random Glucose 81 Calcium 8.3 L Magnesium 1.9 Total Bilirubin 0.7 D AST 414 H D ALT 134 H D Alkaline Phosphatase 147 H D Total Protein 7.4 Albumin 2.7 L Active Medications Generic Name Dose Route Start Last Admin Trade Name Freq PRN Reason Stop Dose Admin Acetaminophen 500 mg 10/28/16 09:51 Tylenol - PO Q6H PRN FEVER OR PAIN Amlodipine Besylate 5 mg 10/28/16 10:00 10/30/16 09:19 Norvasc - PO 5 mg DAILY HAN Administration Emtricitabine/Rilpivirine/Tenofovir 1 each 10/28/16 10:00 10/30/16 09:19 Complera - PO 1 each DAILY HAN Administration Heparin Sodium (Porcine) 5,000 unit 10/29/16 22:00 10/30/16 09:20 Heparin - SQ 5,000 unit BID HAN Administration Ampicillin Sodium 2 gm/ Sodium 100 mls @ 200 mls/hr 10/28/16 10:00 10/30/16 09: 17 Chloride IVPB 200 mls/hr Q4H-IV HAN Administration Lidocaine 1 patch 10/28/16 10:00 10/30/16 09:19 Lidoderm Patch - TP Not Given DAILY HAN Methadone HCl 80 mg/ Methadone 95 mg 10/29/16 06:00 10/30/16 06:01 HCl 10 mg/ Methadone HCl 5 mg PO 95 mg DAILY@0600 HAN Administration Mirtazapine 15 mg 10/28/16 10:00 10/30/16 09:19 Remeron - PO 15 mg DAILY HAN Administration Miscellaneous 1 each 10/28/16 22:00 10/29/16 21:40 Lidoderm Patch Removal MC Not Given DAILY@2200 [facility] Multivitamins/Minerals/Vitamin C 1 tab 10/28/16 10:00 10/30/16 09:19 Tab-A-Vit - PO 1 tab DAILY HAN Administration Mupirocin 1 applic 10/28/16 10:00 10/30/16 09:23 Bactroban 2% Cream - TP 1 applic BID HAN Administration Tramadol HCl 50 mg 10/29/16 20:17 10/29/16 21:37 Ultram - PO 50 mg Q6H PRN Administration PAIN Trazodone HCl 100 mg 10/28/16 22:00 10/29/16 21:38 Desyrel - PO 100 mg HS HAN Administration IMAGES Chest X-Ray (10/20/16): Cardiomegaly with no signs of pneumonia, atelectasis, pneumothorax, or pleural effusions. No signs of lung mass. CT Head (10/20/16): No acute hemorrhage or infarction. Abdomen/Pelvic/Chest CT (10/20/16): Overall low lung volumes with mosaic lung attenuation is nonspecific and could be secondary to imaging in the expiratory phase or could be secondary to an element of air trapping seen in airway disease. Correlate with clinical history. No focal consolidation or mass seen. 3 to 4 mm right lower lobe groundglass nodule. Follow-up CT scan in 12 months is suggested. Dilated pulmonary trunk at 3.9 cm suggestive of an element of pulmonary hypertension. Bilateral gynecomastia. Marked splenomegaly with splenorenal shunting. This is of unclear etiology. Appendix not visualized however there are no indirect findings of acute appendicitis. Status post cholecystectomy. Duplex of Bilateral Lower Extremities (10/20/16): There is no evidence of deep venous thromboses in both lower extremities. Chest X-Ray (10/22/16): No acute pathology Foot X-Ray (10/24/16): Ulceration at the tip of the big toe. No definite radiographic evidence of osteomyelitis. LOWER EXTREMITY MRI (10/26/16): 1. Soft tissue edema over the dorsal aspect of the forefoot. 2. Bandage over the distal aspect of the first toe distal phalanx with soft tissue edema. 3. No definite evidence of osteomyelitis. If clinical concern for osteomyelitis persists, a follow- up MRI could be obtained. ASSESSMENT/PLAN: Patient is a 55 year old male with a PMHx of treated Hepatitis C, Stable HIV on HAART with last CD4 667 and viral load <20copies, HTN, Polysubstance abuse on Methadone who was brought in by his PCP for fever, shortness of breath, and productive cough. Patient was found to be septic and admitted for further monitoring and management. Sepsis Secondary to possible Cellulitis of left hallux- Improving -Blood cultures positive for Equinos -Afebrile overnight -Had deep great toe pulp abscess most likely secondary to self debridement with a electronic systems technician knife. -First Wound cultures positive for staph coagulase -MRI negative for osteomyelitis -Bone biopsy pending -Ampicillin 2gm IVPB Q4H day #7, but a total of 9 days of IV antibiotics. -MIKE negative for vegetations. -Will need a colonoscopy due to cultures growing strep Equinus, which may cause GI malignancy Acute metabolic Encephalopathy- Resolved -Likely secondary to sepsis vs. Drug intoxication -Patient has history of alcohol and IV drug abuse -Ammonia level normal -Urine toxicology negative except for methadone -Alcohol level negative -Head CT negative RLQ Abdominal Pain- Chronic and Improved -CT Abdo/Pelvis negative for acute pathology Acute Kidney Injury- Resolved -Possibly secondary to rhabdomyolysis -Continue to monitor BMP Rhabdomyolysis-Resolved Thrombocytopenia and Neutropenia- Resolving -secondary to sepsis -Today's WBC 4.6 -Today's Platelets 129 -Transfuse if levels <10,000 or <30,000 if actively bleeding HIV- Chronic and Stable -Stable with last CD4 667 and last Viral load <20 copies -Continue with Tenof Df daily Polysubstance Abuse -Denies any recent use -Alcohol level negative -Urine toxicology negative -Continue with Methadone 95mg daily HTN- Controlled -Controlled with Norvasc 5mg daily -Continue to monitor BP Depression -Continue with Remeron 15mg daily -Continue Trazadone 100mg HS F/E/N -On no fluids -Electrolytes wnl -Sodium controlled diet Prophylaxis -Heparin 5000 units BID SQ for DVT Disposition -Bone biopsy pending Visit type - Emergency Visit Emergency Visit: Yes ED Registration Date: 10/20/16 Care time: The patient presented to the Emergency Department on the above date and was hospitalized for further evaluation of their emergent condition. - New Patient This patient is new to me today: No - Critical Care Critical Care patient: No
--- NOTE | 2016-10-30 13:20 | PN ---
Progress Note, Physician History of Present Illness: Afebrile, tolerating abx therapy. - Current Medication List Current Medications: Active Medications Acetaminophen (Tylenol -) 500 mg PO Q6H PRN PRN Reason: FEVER OR PAIN Amlodipine Besylate (Norvasc -) 5 mg PO DAILY [facility] Last Admin: 10/30/16 09:19 Dose: 5 mg Emtricitabine/Rilpivirine/Tenofovir (Complera -) 1 each PO DAILY [facility] Last Admin: 10/30/16 09:19 Dose: 1 each Heparin Sodium (Porcine) (Heparin -) 5,000 unit SQ BID [facility] Last Admin: 10/30/16 09:20 Dose: 5,000 unit Ampicillin Sodium 2 gm/ Sodium (Chloride) 100 mls @ 200 mls/hr IVPB Q4H-IV [facility] Last Admin: 10/30/16 09:17 Dose: 200 mls/hr Lidocaine (Lidoderm Patch -) 1 patch TP DAILY [facility] Last Admin: 10/30/16 09:19 Dose: Not Given Methadone HCl 80 mg/ Methadone (HCl 10 mg/ Methadone HCl 5 mg) 95 mg PO DAILY@ 0600 [facility] Last Admin: 10/30/16 06:01 Dose: 95 mg Mirtazapine (Remeron -) 15 mg PO DAILY [facility] Last Admin: 10/30/16 09:19 Dose: 15 mg Miscellaneous (Lidoderm Patch Removal) 1 each MC DAILY@2200 [facility] Last Admin: 10/29/16 21:40 Dose: Not Given Multivitamins/Minerals/Vitamin C (Tab-A-Vit -) 1 tab PO DAILY [facility] Last Admin: 10/30/16 09:19 Dose: 1 tab Mupirocin (Bactroban 2% Cream -) 1 applic TP BID [facility] Last Admin: 10/30/16 09:23 Dose: 1 applic Tramadol HCl (Ultram -) 50 mg PO Q6H PRN PRN Reason: PAIN Last Admin: 10/29/16 21:37 Dose: 50 mg Trazodone HCl (Desyrel -) 100 mg PO HS [facility] Last Admin: 10/29/16 21:38 Dose: 100 mg - Objective Vital Signs: Vital Signs Temperature 98.0 F 10/30/16 10:00 Pulse Rate 63 10/30/16 10:00 Respiratory Rate 20 10/30/16 10:00 Blood Pressure 117/62 10/30/16 10:00 O2 Sat by Pulse Oximetry (%) 96 10/29/16 21:00 Constitutional: Yes: No Distress, Calm Neck: Yes: Supple Cardiovascular: Yes: Regular Rate and Rhythm Respiratory: Yes: Regular, CTA Bilaterally Gastrointestinal: Yes: Normal Bowel Sounds, Soft Edema: No Labs: CBC, BMP 10/30/16 06:45 10/30/16 06:45 INR, PTT INR 1.53 (0.82-1.09) H D 10/20/16 12:09 Problem List - Problems (1) Bacteremia Code(s): R78.81 - BACTEREMIA (2) Sepsis syndrome Code(s): FPC5245 - (3) HIV disease Code(s): B20 - HUMAN IMMUNODEFICIENCY VIRUS [HIV] DISEASE (4) Hep C w/o coma, chronic Code(s): B18.2 - CHRONIC VIRAL HEPATITIS C (5) Hypertension Code(s): I10 - ESSENTIAL (PRIMARY) HYPERTENSION Qualifiers: Hypertension type: essential hypertension Qualified Code(s): I10 - Essential (primary) hypertension (6) Thrombocytopenia Code(s): D69.6 - THROMBOCYTOPENIA, UNSPECIFIED (7) Osteomyelitis of ankle or foot Code(s): M86.9 - OSTEOMYELITIS, UNSPECIFIED (8) Abnormal LFTs Code(s): R79.89 - OTHER SPECIFIED ABNORMAL FINDINGS OF BLOOD CHEMISTRY Assessment/Plan 10/21/2016 TDS, Grossly normal LV fxn, mild MR and TR 1. Strep equinis bacteremia with cellulitis and osteo of left 1st toe post bone biopsy 2. Leukopenia and thrombocytopenia referable to sepsis 3. HIV on HAART and post Hep C treatment 4. Polysubstance abuse 5. HTN 6. Abnl LFTs h/o cholecystectomy PLAN: 1, Currently on Ampicillin course and duration per ID, but refuses PICC line placement 2. MIKE neg for endocarditis 3. Trend LFTs , avoid hepatotoxins
[2016-10-30] MEDS: traZODone HCL 50 MG TABLET (FP) PO SCH (21:45)
[2016-10-30] MEDS: LIDOCAINE PATCH REMOVAL MC SCH (21:46)
[2016-10-31] MEDS ORDERED: PT OWN MED DRAWER 7, Y5N ONE ×4 (01:21→22:01)
[2016-10-31] MEDS: AMPICILLIN - 2 GM in SODIUM CHLORIDE 100 ML IVPB SCH ×3 (01:34→09:30)
[2016-10-31] MEDS ORDERED: METHADONE HCL 10 MG TABLET ONE (05:40)
[2016-10-31] MEDS ORDERED: METHADONE HCL 40 MG DISPERSABLE TABLET ONE (05:40)
[2016-10-31] MEDS ORDERED: METHADONE HCL 5 MG TABLET ONE (05:40)
[2016-10-31] MEDS: METHADONE 80 MG, METHADONE 10 MG, METHADONE 5 MG PO SCH (05:46)
[2016-10-31 07:37] LABS: ALBUMIN 2.9 g/dl (3.4-5.0); ALK PHOS 152 U/L (45-117); ANION GAP 7 (8-16); BILIRUBIN,TOTAL 0.7 mg/dL (0.2-1.0); CALCIUM 8.7 mg/dL (8.5-10.1); CO2 29 mmol/L (21-32); GLUCOSE,RANDOM 83 mg/dL (74-106); SGPT/ALT 150 U/L (12-78); TOT PROT 7.5 g/dl (6.4-8.2)
[2016-10-31 08:03] LABS: SGOT/AST 440 U/L (15-37)
[2016-10-31 08:53] LABS: MCH 30.2 pg (25.7-33.7); MEAN CELL VOLUME 91.6 fl (80-96); MEAN PLT VOLUME 7.9 fl (7.5-11.1); PLATELET COUNT 132 K/MM3 (134-434); RDW 14.9 % (11.9-15.9); WHITE BLOOD COUNT 4.3 K/mm3 (4.0-10.0)
[2016-10-31] MEDS: HEPARIN NA (PORCINE) 5,000 UNITS/ML 1ML VIAL SQ SCH ×2 (09:29→21:31)
[2016-10-31] MEDS: EMTRICITAB/RILPIVIRINE/TENOFOV 1 EACH TABLET PO SCH (09:29)
[2016-10-31] MEDS: amLODIPine BESYLATE 5 MG TABLET (FP) PO SCH (09:30)
[2016-10-31] MEDS: MULTIVITAMINS (DAILY MVI) TABLET (FP) PO SCH (09:30)
[2016-10-31] MEDS: MIRTAZAPINE 15 MG TABLET (FP) PO SCH (09:31)
[2016-10-31] MEDS: LIDOCAINE 5% TOPICAL PATCH TP SCH (09:31)
[2016-10-31] MEDS: MUPIROCIN CA 2% TOPICAL CREAM 15 GM TUBE TP SCH ×2 (09:33→21:33)
--- NOTE | 2016-10-31 10:28 | PN ---
Progress Note, Physician History of Present Illness: ID Ampicillin continues Bone biopsy culture 10/28 small minute colonies. However had positive blood culture Strep on admission - Current Medication List Current Medications: Active Medications Acetaminophen (Tylenol -) 500 mg PO Q6H PRN PRN Reason: FEVER OR PAIN Amlodipine Besylate (Norvasc -) 5 mg PO DAILY [facility] Last Admin: 10/31/16 09:30 Dose: 5 mg Emtricitabine/Rilpivirine/Tenofovir (Complera -) 1 each PO DAILY [facility] Last Admin: 10/31/16 09:29 Dose: 1 each Heparin Sodium (Porcine) (Heparin -) 5,000 unit SQ BID [facility] Last Admin: 10/31/16 09:29 Dose: 5,000 unit Ampicillin Sodium 2 gm/ Sodium (Chloride) 100 mls @ 200 mls/hr IVPB Q4H-IV [facility] Last Admin: 10/31/16 09:30 Dose: 200 mls/hr Lidocaine (Lidoderm Patch -) 1 patch TP DAILY [facility] Last Admin: 10/31/16 09:31 Dose: Not Given Methadone HCl 80 mg/ Methadone (HCl 10 mg/ Methadone HCl 5 mg) 95 mg PO DAILY@ 0600 [facility] Last Admin: 10/31/16 05:46 Dose: 95 mg Mirtazapine (Remeron -) 15 mg PO DAILY [facility] Last Admin: 10/31/16 09:31 Dose: 15 mg Miscellaneous (Lidoderm Patch Removal) 1 each MC DAILY@2200 [facility] Last Admin: 10/30/16 21:46 Dose: Not Given Multivitamins/Minerals/Vitamin C (Tab-A-Vit -) 1 tab PO DAILY [facility] Last Admin: 10/31/16 09:30 Dose: 1 tab Mupirocin (Bactroban 2% Cream -) 1 applic TP BID [facility] Last Admin: 10/31/16 09:33 Dose: 1 applic Tramadol HCl (Ultram -) 50 mg PO Q6H PRN PRN Reason: PAIN Last Admin: 10/29/16 21:37 Dose: 50 mg Trazodone HCl (Desyrel -) 100 mg PO HS [facility] Last Admin: 10/30/16 21:45 Dose: 100 mg - Objective Vital Signs: Vital Signs Temperature 98.4 F 10/31/16 09:00 Pulse Rate 63 10/31/16 09:00 Respiratory Rate 20 10/31/16 09:00 Blood Pressure 131/69 10/31/16 09:00 O2 Sat by Pulse Oximetry (%) 96 10/29/16 21:00 Extremities: Yes: Other (Post op dressing) Labs: CBC, BMP 10/31/16 08:41 10/31/16 06:20 INR, PTT INR 1.53 (0.82-1.09) H D 10/20/16 12:09 Assessment/Plan Laboratory Tests 10/22/16 10/31/16 10/31/16 07:00 06:20 08:41 WBC 4.3 Hgb 12.2 Hct 37.0 Plt Count 132 L ESR 30 H BUN 9 Creat Clearance w eGFR > 60 AST 440 H ALT 150 H Alkaline Phosphatase 152 H Assessment Podiatry feels he has osteomyelitis Bone biopsy pending form 10/28 May have a staph sp there ? significance Strep bacteremia Elevated LFTs ? PCN AMP related Treated Hepatitis C Plan Now obligated to wait for bone biopsy and final operative culture Will stop Ampicillin and give Vancomycin to treat blood culture Awa PACHECO
--- NOTE | 2016-10-31 11:06 | PN ---
Progress Note, Physician History of Present Illness: Afebrile, tolerating abx therapy. - Current Medication List Current Medications: Active Medications Acetaminophen (Tylenol -) 500 mg PO Q6H PRN PRN Reason: FEVER OR PAIN Amlodipine Besylate (Norvasc -) 5 mg PO DAILY [facility] Last Admin: 10/31/16 09:30 Dose: 5 mg Emtricitabine/Rilpivirine/Tenofovir (Complera -) 1 each PO DAILY [facility] Last Admin: 10/31/16 09:29 Dose: 1 each Heparin Sodium (Porcine) (Heparin -) 5,000 unit SQ BID [facility] Last Admin: 10/31/16 09:29 Dose: 5,000 unit Vancomycin HCl 1,250 mg/ (Dextrose) 250 mls @ 250 mls/hr IVPB BID [facility] PRN Reason: Protocol Lidocaine (Lidoderm Patch -) 1 patch TP DAILY [facility] Last Admin: 10/31/16 09:31 Dose: Not Given Methadone HCl 80 mg/ Methadone (HCl 10 mg/ Methadone HCl 5 mg) 95 mg PO DAILY@ 0600 [facility] Last Admin: 10/31/16 05:46 Dose: 95 mg Mirtazapine (Remeron -) 15 mg PO DAILY [facility] Last Admin: 10/31/16 09:31 Dose: 15 mg Miscellaneous (Lidoderm Patch Removal) 1 each MC DAILY@2200 [facility] Last Admin: 10/30/16 21:46 Dose: Not Given Multivitamins/Minerals/Vitamin C (Tab-A-Vit -) 1 tab PO DAILY [facility] Last Admin: 10/31/16 09:30 Dose: 1 tab Mupirocin (Bactroban 2% Cream -) 1 applic TP BID [facility] Last Admin: 10/31/16 09:33 Dose: 1 applic Tramadol HCl (Ultram -) 50 mg PO Q6H PRN PRN Reason: PAIN Last Admin: 10/29/16 21:37 Dose: 50 mg Trazodone HCl (Desyrel -) 100 mg PO HS [facility] Last Admin: 10/30/16 21:45 Dose: 100 mg - Objective Vital Signs: Vital Signs Temperature 98.4 F 10/31/16 09:00 Pulse Rate 63 10/31/16 09:00 Respiratory Rate 20 10/31/16 09:00 Blood Pressure 131/69 10/31/16 09:00 O2 Sat by Pulse Oximetry (%) 96 10/29/16 21:00 Constitutional: Yes: No Distress, Calm Neck: Yes: Supple Cardiovascular: Yes: Regular Rate and Rhythm Respiratory: Yes: Regular, CTA Bilaterally Gastrointestinal: Yes: Normal Bowel Sounds, Soft Edema: No Labs: CBC, BMP 10/31/16 08:41 10/31/16 06:20 INR, PTT INR 1.53 (0.82-1.09) H D 10/20/16 12:09 Problem List - Problems (1) Bacteremia Code(s): R78.81 - BACTEREMIA (2) Sepsis syndrome Code(s): EML7860 - (3) HIV disease Code(s): B20 - HUMAN IMMUNODEFICIENCY VIRUS [HIV] DISEASE (4) Hep C w/o coma, chronic Code(s): B18.2 - CHRONIC VIRAL HEPATITIS C (5) Hypertension Code(s): I10 - ESSENTIAL (PRIMARY) HYPERTENSION Qualifiers: Hypertension type: essential hypertension Qualified Code(s): I10 - Essential (primary) hypertension (6) Thrombocytopenia Code(s): D69.6 - THROMBOCYTOPENIA, UNSPECIFIED (7) Osteomyelitis of ankle or foot Code(s): M86.9 - OSTEOMYELITIS, UNSPECIFIED (8) Abnormal LFTs Code(s): R79.89 - OTHER SPECIFIED ABNORMAL FINDINGS OF BLOOD CHEMISTRY Assessment/Plan 10/21/2016 TDS, Grossly normal LV fxn, mild MR and TR 1. Strep equinis bacteremia with cellulitis and osteo of left 1st toe post bone biopsy 2. Leukopenia and thrombocytopenia referable to sepsis 3. HIV on HAART and post Hep C treatment 4. Polysubstance abuse 5. HTN 6. Abnl LFTs h/o cholecystectomy possibly related to Ampicillin PLAN: 1. Ampicillin changed to Vanco, awaiting bone biopsy and cultures, but refuses PICC line placement 2. MIKE neg for endocarditis 3. Trend LFTs , avoid hepatotoxins 4. Continue Norvasc 5 qd 5. DVT prophylaxis
--- NOTE | 2016-10-31 11:57 | PN ---
Progress Note, Physician Chief Complaint: F/U of ulceration from debridement Monday in the operating theatre. 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 S/P following osseous biopsy for C and S - Current Medication List Current Medications: Active Medications Acetaminophen (Tylenol -) 500 mg PO Q6H PRN PRN Reason: FEVER OR PAIN Amlodipine Besylate (Norvasc -) 5 mg PO DAILY [facility] Last Admin: 10/31/16 09:30 Dose: 5 mg Emtricitabine/Rilpivirine/Tenofovir (Complera -) 1 each PO DAILY [facility] Last Admin: 10/31/16 09:29 Dose: 1 each Heparin Sodium (Porcine) (Heparin -) 5,000 unit SQ BID [facility] Last Admin: 10/31/16 09:29 Dose: 5,000 unit Vancomycin HCl 1,250 mg/ (Dextrose) 250 mls @ 166.667 mls/hr IVPB BID@1100, 2300 [facility] PRN Reason: Protocol Lidocaine (Lidoderm Patch -) 1 patch TP DAILY [facility] Last Admin: 10/31/16 09:31 Dose: Not Given Methadone HCl 80 mg/ Methadone (HCl 10 mg/ Methadone HCl 5 mg) 95 mg PO DAILY@ 0600 [facility] Last Admin: 10/31/16 05:46 Dose: 95 mg Mirtazapine (Remeron -) 15 mg PO DAILY [facility] Last Admin: 10/31/16 09:31 Dose: 15 mg Miscellaneous (Lidoderm Patch Removal) 1 each MC DAILY@2200 [facility] Last Admin: 10/30/16 21:46 Dose: Not Given Multivitamins/Minerals/Vitamin C (Tab-A-Vit -) 1 tab PO DAILY [facility] Last Admin: 10/31/16 09:30 Dose: 1 tab Mupirocin (Bactroban 2% Cream -) 1 applic TP BID [facility] Last Admin: 10/31/16 09:33 Dose: 1 applic Tramadol HCl (Ultram -) 50 mg PO Q6H PRN PRN Reason: PAIN Last Admin: 10/29/16 21:37 Dose: 50 mg Trazodone HCl (Desyrel -) 100 mg PO HS [facility] Last Admin: 10/30/16 21:45 Dose: 100 mg - Objective Vital Signs: Vital Signs Temperature 36.9 C 10/31/16 09:00 Pulse Rate 63 10/31/16 09:00 Respiratory Rate 20 10/31/16 09:00 Blood Pressure 131/69 10/31/16 09:00 O2 Sat by Pulse Oximetry (%) 96 10/29/16 21:00 Constitutional: Yes: Well Nourished Edema: Yes (chronic venous hypertense) Edema: LLE: 3+, RLE: 3+ Peripheral Pulses WNL: Yes Integumentary: Yes: Erythema, Incision, Venous Stasis Changes (well granulated distal great toe pulp ulceration) Neurological: Yes: WNL ...Motor Strength: WNL Psychiatric: Yes: Other (cognitive impairment) Additional Findings/Remarks: Wound well granulated 100% - minimal superficial slough. Will need wound care either under my direction at [facility] in the [place] ([phone] ) or at this facility. Awaiting final C and S resuts from biopsy and will defer to the infectious Disease disaster recovery consultant(s) on how to treat. Please note that this encounter is a wound evaluation and assessment of the underlying illness of osteomyelitis. Labs: CBC, BMP 10/31/16 08:41 10/31/16 06:20 INR, PTT INR 1.53 (0.82-1.09) H D 10/20/16 12:09 - ....Imaging Other: Pending ("pending organism" from osseous biopsy Monday)
--- NOTE | 2016-10-31 12:57 | PATH ---
Surgical Pathology Report Patient Name: APURVA HERRMANN [facility]. Rec. #: [id number] /Age/Gender: 1960 (Age: 56) / M Account: [id number] Location: [address] [place] [address]/[facility] Taken: 10/28/2016 Received: 10/28/2016 Reported: 10/31/2016 Physicians: Rupa Servin M.D. Specimen(s) Received DEBRIDEMENT ULCER LEFT GREAT TOE Clinical History Ulceration and possible osteomyelitis left big toe Final Diagnosis SKIN AND SOFT TISSUE, LEFT GREAT TOE, ULCER, DEBRIDEMENT: SUPERFICIAL FRAGMENTS OF ULCERATED AND NECROTIC SKIN AND UNDERLYING SOFT TISSUE WITH ACUTE AND CHRONIC INFLAMMATION AND FOCI OF NECROSIS. Electronically Signed Rafal Shankar M.D. Gross Description Received in formalin labeled "debrided ulcer left great toe" is a 2.7 x 2.0 x 0.5 cm damon, irregular, focally ulcerated portion of skin with minimal underlying soft tissue. There is no bone identified. The specimen is sectioned and entirely submitted in 2 cassettes. /10/28/2016 [facility]/10/28/2016
[2016-10-31] MEDS: VANCOMYCIN 1,250 MG in DEXTROSE 5%-WATER - 250 ML IVPB SCH ×2 (13:03→22:05)
--- NOTE | 2016-10-31 13:48 | PN ---
Teaching Attending Note Name of Resident: Bri Mars ATTENDING PHYSICIAN STATEMENT I saw and evaluated the patient. I reviewed the resident's note and discussed the case with the resident. I agree with the resident's findings and plan as documented. SUBJECTIVE:no acute events overnight. NO pain . Wants to go home OBJECTIVE: Vital Signs Temperature 98.4 F 10/31/16 09:00 Pulse Rate 63 10/31/16 09:00 Respiratory Rate 20 10/31/16 09:00 Blood Pressure 131/69 10/31/16 09:00 O2 Sat by Pulse Oximetry (%) 96 10/29/16 21:00 GENERAL: Awake, alert, in no acute distress. LUNGS: CTA bilaterally, no wheezes or crackles. HEART: Regular rate and rhythm, normal S1 and S2 without murmur, rub or gallop. ABDOMEN: Soft, protruding and distended, nontender. Normoactive bowel sounds LOWER EXTREMITIES: Erythema and tenderness of bilateral legs L>R with wrapping around the left foot c/d/i NEUROLOGICAL: No facial droop. SKIN: Erythema of bilateral lower extremities with no abrasions or drainage Abnormal Lab Results 10/31/16 10/31/16 06:20 08:41 Plt Count 132 L Anion Gap 7 L AST 440 H ALT 150 H Alkaline Phosphatase 152 H Albumin 2.9 L ASSESSMENT AND PLAN: Sepsis Secondary to cellulitis and possible OM of the Left great toe- bacteremia with S. Equinos. Toe abscess is s/p debridement . Afebrile and improving. MRI is negative for OM . Awaiting for a bone biopsy results to determine length of treatment with IVAB. * once we have biopsy result will determine the length of treatment and discharge after placing PICC line for antibiotics. HIV- Chronic and Stable -Stable with last CD4 667 and last Viral load <20 copies -Continue with current meds History of polysubstance Abuse -Denies any recent use -Alcohol level negative -Urine toxicology negative -Continue with Methadone 95mg daily HTN- Controlled -Controlled on Norvasc 5mg F/E/N PO diet Prophylaxis -Heparin 5000 units BID SQ for DVT Disposition -Bone biopsy pending
--- NOTE | 2016-10-31 17:17 | PN ---
Physical Exam: SUBJECTIVE: Patient seen and examined by me at bedside. No overnight events noted. Otherwise, denies any fever, chills, nausea, vomiting, abdominal pain, chest pain, palpitations, shortness of breath, headaches. OBJECTIVE: Vital Signs Period Temp Pulse Resp BP Sys/Forman Pulse Ox Last 24 Hr 98.2 F-98.4 F 62-66 20-20 131-140/69-80 GENERAL: Awake, alert, in no acute distress. LUNGS: CTA bilaterally, no wheezes or crackles. HEART: Regular rate and rhythm, normal S1 and S2 without murmur, rub or gallop. ABDOMEN: Soft, protruding and distended, nontender. Normoactive bowel sounds LOWER EXTREMITIES: Erythema and tenderness of bilateral legs L>R with wrapping around the left foot c/d/i NEUROLOGICAL: No facial droop. SKIN: Erythema of bilateral lower extremities with no abrasions or drainage Laboratory Results - last 24 hr 10/31/16 10/31/16 10/31/16 06:20 06:20 08:41 WBC Cancelled 4.3 Corrected WBC (auto) Cancelled RBC Cancelled 4.04 Hgb Cancelled 12.2 Hct Cancelled 37.0 MCV Cancelled 91.6 MCHC Cancelled 33.0 RDW Cancelled 14.9 Plt Count Cancelled 132 L MPV Cancelled 7.9 Differential Comment Cancelled Platelet Estimate Cancelled Platelet Comment Cancelled RBC Morphology Cancelled Sodium 138 Potassium 3.9 Chloride 102 Carbon Dioxide 29 Anion Gap 7 L BUN 9 Creatinine 1.0 Creat Clearance w eGFR > 60 Random Glucose 83 Calcium 8.7 Total Bilirubin 0.7 AST 440 H ALT 150 H Alkaline Phosphatase 152 H Total Protein 7.5 Albumin 2.9 L Active Medications Generic Name Dose Route Start Last Admin Trade Name Freq PRN Reason Stop Dose Admin Acetaminophen 500 mg 10/28/16 09:51 Tylenol - PO Q6H PRN FEVER OR PAIN Amlodipine Besylate 5 mg 10/28/16 10:00 10/31/16 09:30 Norvasc - PO 5 mg DAILY [facility] Administration Emtricitabine/Rilpivirine/Tenofovir 1 each 10/28/16 10:00 10/31/16 09:29 Complera - PO 1 each DAILY [facility] Administration Heparin Sodium (Porcine) 5,000 unit 10/29/16 22:00 10/31/16 09:29 Heparin - SQ 5,000 unit BID [facility] Administration Vancomycin HCl 1,250 mg/ 250 mls @ 166.667 mls/hr 10/31/16 11:15 10/31/16 13:03 Dextrose IVPB 166.667 mls/hr BID@1100,2300 [facility] Administration Protocol Lidocaine 1 patch 10/28/16 10:00 10/31/16 09:31 Lidoderm Patch - TP Not Given DAILY [facility] Methadone HCl 80 mg/ Methadone 95 mg 10/29/16 06:00 10/31/16 05:46 HCl 10 mg/ Methadone HCl 5 mg PO 95 mg DAILY@0600 [facility] Administration Mirtazapine 15 mg 10/28/16 10:00 10/31/16 09:31 Remeron - PO 15 mg DAILY [facility] Administration Miscellaneous 1 each 10/28/16 22:00 10/30/16 21:46 Lidoderm Patch Removal MC Not Given DAILY@2200 [facility] Multivitamins/Minerals/Vitamin C 1 tab 10/28/16 10:00 10/31/16 09:30 Tab-A-Vit - PO 1 tab DAILY [facility] Administration Mupirocin 1 applic 10/28/16 10:00 10/31/16 09:33 Bactroban 2% Cream - TP 1 applic BID [facility] Administration Tramadol HCl 50 mg 10/29/16 20:17 10/29/16 21:37 Ultram - PO 50 mg Q6H PRN Administration PAIN Trazodone HCl 100 mg 10/28/16 22:00 10/30/16 21:45 Desyrel - PO 100 mg HS [facility] Administration IMAGES Chest X-Ray (10/20/16): Cardiomegaly with no signs of pneumonia, atelectasis, pneumothorax, or pleural effusions. No signs of lung mass. CT Head (10/20/16): No acute hemorrhage or infarction. Abdomen/Pelvic/Chest CT (10/20/16): Overall low lung volumes with mosaic lung attenuation is nonspecific and could be secondary to imaging in the expiratory phase or could be secondary to an element of air trapping seen in airway disease. Correlate with clinical history. No focal consolidation or mass seen. 3 to 4 mm right lower lobe groundglass nodule. Follow-up CT scan in 12 months is suggested. Dilated pulmonary trunk at 3.9 cm suggestive of an element of pulmonary hypertension. Bilateral gynecomastia. Marked splenomegaly with splenorenal shunting. This is of unclear etiology. Appendix not visualized however there are no indirect findings of acute appendicitis. Status post cholecystectomy. Duplex of Bilateral Lower Extremities (10/20/16): There is no evidence of deep venous thromboses in both lower extremities. Chest X-Ray (10/22/16): No acute pathology Foot X-Ray (10/24/16): Ulceration at the tip of the big toe. No definite radiographic evidence of osteomyelitis. LOWER EXTREMITY MRI (10/26/16): 1. Soft tissue edema over the dorsal aspect of the forefoot. 2. Bandage over the distal aspect of the first toe distal phalanx with soft tissue edema. 3. No definite evidence of osteomyelitis. If clinical concern for osteomyelitis persists, a follow- up MRI could be obtained. ASSESSMENT/PLAN: Patient is a 55 year old male with a PMHx of treated Hepatitis C, Stable HIV on HAART with last CD4 667 and viral load <20copies, HTN, Polysubstance abuse on Methadone who was brought in by his PCP for fever, shortness of breath, and productive cough. Patient was found to be septic and admitted for further monitoring and management. Sepsis Secondary to possible Cellulitis of left hallux- Improving -Blood cultures positive for Equinos -Afebrile overnight -Had deep great toe pulp abscess most likely secondary to self debridement with a wheel truer knife. -First Wound cultures positive for staph coagulase -MRI negative for osteomyelitis -Bone biopsy pending -Vancomycin 1250mg BID started due to positive pending cultures. Day #10 of IV abx -MIKE negative for vegetations. -Will need a colonoscopy due to cultures growing strep Equinus, which may cause GI malignancy Acute metabolic Encephalopathy- Resolved -Likely secondary to sepsis vs. Drug intoxication -Patient has history of alcohol and IV drug abuse -Ammonia level normal -Urine toxicology negative except for methadone -Alcohol level negative -Head CT negative Transaminitis -Possibly from Amoxicillin -AST 440, ALT 150, Alk phos 152 -Abx switched to Vancomycin -Hx of Hepatitis C but has been treated three years ago with Harvoni -Is taking Complera for HIV -Will continue to monitor RLQ Abdominal Pain- Chronic and Improved -CT Abdo/Pelvis negative for acute pathology Acute Kidney Injury- Resolved -Possibly secondary to rhabdomyolysis -Continue to monitor BMP Rhabdomyolysis-Resolved Thrombocytopenia and Neutropenia- Resolving -secondary to sepsis -Today's WBC 4.6 -Today's Platelets 129 -Transfuse if levels <10,000 or <30,000 if actively bleeding HIV- Chronic and Stable -Stable with last CD4 667 and last Viral load <20 copies -Continue with Tenof Df daily Polysubstance Abuse -Denies any recent use -Alcohol level negative -Urine toxicology negative -Continue with Methadone 95mg daily HTN- Controlled -Controlled with Norvasc 5mg daily -Continue to monitor BP Depression -Continue with Remeron 15mg daily -Continue Trazadone 100mg HS F/E/N -On no fluids -Electrolytes wnl -Sodium controlled diet Prophylaxis -Heparin 5000 units BID SQ for DVT Disposition -Bone biopsy pending Visit type - Emergency Visit Emergency Visit: Yes ED Registration Date: 10/20/16 Care time: The patient presented to the Emergency Department on the above date and was hospitalized for further evaluation of their emergent condition. - New Patient This patient is new to me today: No - Critical Care Critical Care patient: No
[2016-10-31] MEDS: traZODone HCL 50 MG TABLET (FP) PO SCH (21:32)
[2016-10-31] MEDS: traMADol HCL 50 MG TABLET PO PRN (21:35)
[2016-10-31] MEDS: LIDOCAINE PATCH REMOVAL MC SCH (22:00)
[2016-11-01] MEDS ORDERED: METHADONE HCL 10 MG TABLET ONE (05:25)
[2016-11-01] MEDS ORDERED: METHADONE HCL 40 MG DISPERSABLE TABLET ONE (05:25)
[2016-11-01] MEDS ORDERED: METHADONE HCL 5 MG TABLET ONE (05:26)
[2016-11-01] MEDS: METHADONE 80 MG, METHADONE 10 MG, METHADONE 5 MG PO SCH (05:46)
[2016-11-01 08:07] LABS: MCH 30.3 pg (25.7-33.7); MCHC 33.4 g/dl (32.0-35.9); MEAN CELL VOLUME 90.7 fl (80-96); MEAN PLT VOLUME 8.3 fl (7.5-11.1); PLATELET COUNT 128 K/MM3 (134-434); RDW 14.9 % (11.9-15.9); WHITE BLOOD COUNT 3.7 K/mm3 (4.0-10.0)
[2016-11-01 08:59] LABS: ALBUMIN 2.8 g/dl (3.4-5.0); ALK PHOS 148 U/L (45-117); ANION GAP 6 (8-16); BILIRUBIN,TOTAL 0.8 mg/dL (0.2-1.0); CALCIUM 8.9 mg/dL (8.5-10.1); CO2 30 mmol/L (21-32); CREATININE 1.1 mg/dL (0.7-1.3); GLUCOSE,RANDOM 87 mg/dL (74-106); SGOT/AST 399 U/L (15-37); SGPT/ALT 143 U/L (12-78); TOT PROT 7.2 g/dl (6.4-8.2)
[2016-11-01] MEDS ORDERED: PT OWN MED DRAWER 7, Y5N ONE (09:48)
[2016-11-01] MEDS: amLODIPine BESYLATE 5 MG TABLET (FP) PO SCH (10:12)
[2016-11-01] MEDS: MULTIVITAMINS (DAILY MVI) TABLET (FP) PO SCH (10:12)
[2016-11-01] MEDS: MIRTAZAPINE 15 MG TABLET (FP) PO SCH (10:12)
[2016-11-01] MEDS: EMTRICITAB/RILPIVIRINE/TENOFOV 1 EACH TABLET PO SCH (10:12)
[2016-11-01] MEDS: LIDOCAINE 5% TOPICAL PATCH TP SCH (10:13)
[2016-11-01] MEDS: HEPARIN NA (PORCINE) 5,000 UNITS/ML 1ML VIAL SQ SCH ×2 (10:14→21:10)
[2016-11-01] MEDS: MUPIROCIN CA 2% TOPICAL CREAM 15 GM TUBE TP SCH ×2 (10:19→21:10)
[2016-11-01] MEDS: VANCOMYCIN 1,250 MG in DEXTROSE 5%-WATER - 250 ML IVPB SCH ×2 (12:02→22:01)
--- NOTE | 2016-11-01 12:36 | PN ---
Progress Note, Physician Chief Complaint: Events noted Not in distress History of Present Illness: Patient was seen and examined. Awake and alert. Chart was reviewed Denies chest pain, SOB or palpitations - Current Medication List Current Medications: Active Medications Acetaminophen (Tylenol -) 500 mg PO Q6H PRN PRN Reason: FEVER OR PAIN Amlodipine Besylate (Norvasc -) 5 mg PO DAILY [facility] Last Admin: 11/01/16 10:12 Dose: 5 mg Emtricitabine/Rilpivirine/Tenofovir (Complera -) 1 each PO DAILY [facility] Last Admin: 11/01/16 10:12 Dose: 1 each Heparin Sodium (Porcine) (Heparin -) 5,000 unit SQ BID [facility] Last Admin: 11/01/16 10:14 Dose: Not Given Vancomycin HCl 1,250 mg/ (Dextrose) 250 mls @ 166.667 mls/hr IVPB BID@1100, 2300 [facility] PRN Reason: Protocol Last Admin: 11/01/16 12:02 Dose: 166.667 mls/hr Lidocaine (Lidoderm Patch -) 1 patch TP DAILY [facility] Last Admin: 11/01/16 10:13 Dose: Not Given Methadone HCl 80 mg/ Methadone (HCl 10 mg/ Methadone HCl 5 mg) 95 mg PO DAILY@ 0600 [facility] Last Admin: 11/01/16 05:46 Dose: 95 mg Mirtazapine (Remeron -) 15 mg PO DAILY [facility] Last Admin: 11/01/16 10:12 Dose: 15 mg Miscellaneous (Lidoderm Patch Removal) 1 each MC DAILY@2200 [facility] Last Admin: 10/31/16 22:00 Dose: Not Given Multivitamins/Minerals/Vitamin C (Tab-A-Vit -) 1 tab PO DAILY [facility] Last Admin: 11/01/16 10:12 Dose: 1 tab Mupirocin (Bactroban 2% Cream -) 1 applic TP BID [facility] Last Admin: 11/01/16 10:19 Dose: 1 applic Tramadol HCl (Ultram -) 50 mg PO Q6H PRN PRN Reason: PAIN Last Admin: 10/31/16 21:35 Dose: 50 mg Trazodone HCl (Desyrel -) 100 mg PO HS [facility] Last Admin: 10/31/16 21:32 Dose: 100 mg - Objective Vital Signs: Vital Signs Temperature 98.6 F 11/01/16 10:00 Pulse Rate 58 L 11/01/16 10:00 Respiratory Rate 20 11/01/16 10:00 Blood Pressure 104/56 11/01/16 10:00 O2 Sat by Pulse Oximetry (%) 96 10/29/16 21:00 Neck: Yes: Supple Cardiovascular: Yes: Regular Rate and Rhythm, S1, S2 Respiratory: Yes: CTA Bilaterally Gastrointestinal: Yes: Normal Bowel Sounds, Soft. No: Tenderness Edema: No Labs: CBC, BMP 11/01/16 07:00 11/01/16 07:00 Problem List - Problems (1) Bacteremia Code(s): R78.81 - BACTEREMIA (2) Cellulitis Code(s): L03.90 - CELLULITIS, UNSPECIFIED (3) Hypertension Code(s): I10 - ESSENTIAL (PRIMARY) HYPERTENSION Qualifiers: Hypertension type: essential hypertension Qualified Code(s): I10 - Essential (primary) hypertension (4) Sepsis syndrome Code(s): XGF1424 - (5) HIV disease Code(s): B20 - HUMAN IMMUNODEFICIENCY VIRUS [HIV] DISEASE Assessment/Plan 1. Strep equinis bacteremia with cellulitis and osteomyelitis of left 1st toe - post bone biopsy 2. Leukopenia and thrombocytopenia referable to sepsis 3. HIV on HAART and post Hep C treatment 4. Poly-substance abuse 5. HTN 6. Abnoraml LFTs h/o cholecystectomy possibly related to Ampicillin PLAN: 1. Continue Vanco, awaiting bone biopsy and cultures 2. Continue Norvasc 3. DVT prophylaxis Further plans are to follow Valentino Fernández MD
--- NOTE | 2016-11-01 13:48 | PN ---
Progress Note (short form) - Note Progress Note: no fevers today s/p operative debridement of the big toe Vital Signs Period Temp Pulse Resp BP Sys/Forman Pulse Ox Last 24 Hr 98.2 F-98.6 F 58-68 18-20 104-140/56-82 cor-rrr lungs clear abd soft,nt ext bandage in place CBC, BMP 11/01/16 07:00 11/01/16 07:00 Microbiology 10/28/16 11:30 Wound-Other Gram Stain - Final 10/28/16 11:30 Wound-Other Wound Culture - Preliminary Staphylococcus Coagulase Neg 10/26/16 06:00 Sputum - Expectorated Gram Stain - Final 10/26/16 06:00 Sputum - Expectorated Sputum Culture - Final Yeast Like Organism 10/20/16 20:30 Nasopharyngeal Swab Respiratory Virus Panel - Final 10/24/16 19:15 Toe - Left Hallux Gram Stain - Final 10/24/16 19:15 Toe - Left Hallux Wound Culture - Final Staphylococcus Coagulase Neg Staphylococcus Coagulase Neg#2 Diphtheroid/Corynebacterium 10/20/16 12:09 Blood - Peripheral Venous Blood Culture - Final Streptococcus Equinus 2 10/22/16 07:00 Blood - Peripheral Venous Blood Culture - Final NO GROWTH AFTER 5 DAYS INCUBATION 10/22/16 07:00 Blood - Peripheral Venous Blood Culture - Final NO GROWTH AFTER 5 DAYS INCUBATION 10/20/16 12:09 Blood - Peripheral Venous Blood Culture - Preliminary Streptococcus Equinus 2 10/20/16 13:21 Urine - Urine Clean Catch Urine Culture - Final 10/20/16 17:44 Urine For Antigen Detection Legionella Antigen - Final 10/20/16 17:44 Urine For Antigen Detection Streptococcus pneumoniae Antigen (M - Final 10/20/16 20:30 Nasopharyngeal Swab Influenza Types A,B Antigen (TOÑO) - Final 10/20/16 20:30 Nasopharyngeal Swab - Final MIKE negative a/p sepsis syndrome strep equinis bacteremia- switched to vancomycin due to elevated LFTs ?osteo- f/u cultures abnl lfts- trend hiv on art treated hep c Problem List - Problems (1) Sepsis syndrome Code(s): ERQ1407 - (2) Bacteremia Code(s): R78.81 - BACTEREMIA (3) Cellulitis Code(s): L03.90 - CELLULITIS, UNSPECIFIED (4) YVON (acute kidney injury) Code(s): N17.9 - ACUTE KIDNEY FAILURE, UNSPECIFIED (5) Rhabdomyolysis Code(s): M62.82 - RHABDOMYOLYSIS (6) HIV disease Code(s): B20 - HUMAN IMMUNODEFICIENCY VIRUS [HIV] DISEASE (7) Hep C w/o coma, chronic Code(s): B18.2 - CHRONIC VIRAL HEPATITIS C (8) Altered mental status Code(s): R41.82 - ALTERED MENTAL STATUS, UNSPECIFIED Qualifiers: Altered mental status type: unspecified Qualified Code(s): R41.82 - Altered mental status, unspecified
[2016-11-01] MEDS: traMADol HCL 50 MG TABLET PO PRN (14:08)
--- NOTE | 2016-11-01 15:38 | PN ---
Teaching Attending Note Name of Resident: Bri Mars ATTENDING PHYSICIAN STATEMENT I saw and evaluated the patient. I reviewed the resident's note and discussed the case with the resident. I agree with the resident's findings and plan as documented. SUBJECTIVE: Patient has no complaints. OBJECTIVE: Vital Signs Period Temp Pulse Resp BP Sys/Forman Pulse Ox Last 24 Hr 98.4 F-98.6 F 58-68 18-20 104-134/56-82 HEART: S1S2, RRR LUNGS: Clear ABDOMEN: Soft, non-tender, non-distended, normal BS EXTREMITIES: No edema. Left foot wrapped ASSESSMENT AND PLAN: This is a 55 year old man with a history of HIV, hepatitis C, cirrhosis, HTN, polysubstance abuse, depression who presented to the ER with fever, productive cough, and SOB. 1. Sepsis secondary to cellulitis and possible osteomyelitis of left 1st toe with Strep equinis bacteremia - Continue Vancomycin - Amoxicillin discontinued secondary to hepatic transaminitis - s/p I&D of left 1st toe abscess 10/24 - s/p debridement of left 1st toe 10/28 - Blood cultures (10/22) negative - Bone biopsies pending 2. Acute hypoxic respiratory failure - Resolved 3. Acute metabolic encephalopathy secondary to sepsis - Improved 4. Acute kidney injury secondary to sepsis, rhabdomyolysis - Improved 5. Rhabdomyolysis - Resolved 6. Leukopenia 7. Thrombocytopenia - Improved 8. Hypertension - Continue Norvasc 9. HIV - Continue Complera 10. Hepatitis C - s/p treatment 11. Cirrhosis 12. Depression - Continue Remeron, Trazodone 13. History of polysubstance abuse - Continue Methadone
--- NOTE | 2016-11-01 16:07 | PN ---
Physical Exam: SUBJECTIVE: Patient seen and examined by me at bedside. No overnight events noted. Patient remains afebrile. Patient offers no complaints. Otherwise, patient denies fever, chills, nausea, vomiting, constipation, diarrhea, chest pain, palpitations, shortness of breath. OBJECTIVE: Vital Signs Period Temp Pulse Resp BP Sys/Forman Pulse Ox Last 24 Hr 98.4 F-98.6 F 58-68 18-20 104-134/56-82 GENERAL: Awake, alert, in no acute distress. LUNGS: CTA bilaterally, no wheezes or crackles. HEART: Regular rate and rhythm, normal S1 and S2 without murmur, rub or gallop. ABDOMEN: Soft, protruding and distended, nontender. Normoactive bowel sounds LOWER EXTREMITIES: Erythema and tenderness of bilateral legs L>R with wrapping around the left foot c/d/i NEUROLOGICAL: No facial droop. SKIN: Erythema of bilateral lower extremities with no abrasions or drainage Laboratory Results - last 24 hr 11/01/16 11/01/16 07:00 07:00 WBC 3.7 L RBC 3.91 L Hgb 11.8 Hct 35.4 MCV 90.7 MCHC 33.4 RDW 14.9 Plt Count 128 L MPV 8.3 Sodium 138 Potassium 3.9 Chloride 102 Carbon Dioxide 30 Anion Gap 6 L BUN 12 D Creatinine 1.1 Creat Clearance w eGFR > 60 Random Glucose 87 Calcium 8.9 Total Bilirubin 0.8 AST 399 H ALT 143 H Alkaline Phosphatase 148 H Total Protein 7.2 Albumin 2.8 L Active Medications Generic Name Dose Route Start Last Admin Trade Name Freq PRN Reason Stop Dose Admin Acetaminophen 500 mg 10/28/16 09:51 Tylenol - PO Q6H PRN FEVER OR PAIN Amlodipine Besylate 5 mg 10/28/16 10:00 11/01/16 10:12 Norvasc - PO 5 mg DAILY HAN Administration Emtricitabine/Rilpivirine/Tenofovir 1 each 10/28/16 10:00 11/01/16 10:12 Complera - PO 1 each DAILY HAN Administration Heparin Sodium (Porcine) 5,000 unit 10/29/16 22:00 11/01/16 10:14 Heparin - SQ Not Given BID HAN Vancomycin HCl 1,250 mg/ 250 mls @ 166.667 mls/hr 10/31/16 11:15 11/01/16 12:02 Dextrose IVPB 166.667 mls/hr BID@1100,2300 HAN Administration Protocol Lidocaine 1 patch 10/28/16 10:00 11/01/16 10:13 Lidoderm Patch - TP Not Given DAILY HAN Methadone HCl 80 mg/ Methadone 95 mg 10/29/16 06:00 11/01/16 05:46 HCl 10 mg/ Methadone HCl 5 mg PO 95 mg DAILY@0600 HAN Administration Mirtazapine 15 mg 10/28/16 10:00 11/01/16 10:12 Remeron - PO 15 mg DAILY HAN Administration Miscellaneous 1 each 10/28/16 22:00 10/31/16 22:00 Lidoderm Patch Removal MC Not Given DAILY@2200 [facility] Multivitamins/Minerals/Vitamin C 1 tab 10/28/16 10:00 11/01/16 10:12 Tab-A-Vit - PO 1 tab DAILY HAN Administration Mupirocin 1 applic 10/28/16 10:00 11/01/16 10:19 Bactroban 2% Cream - TP 1 applic BID HAN Administration Tramadol HCl 50 mg 10/29/16 20:17 11/01/16 14:08 Ultram - PO 50 mg Q6H PRN Administration PAIN Trazodone HCl 100 mg 10/28/16 22:00 10/31/16 21:32 Desyrel - PO 100 mg HS HAN Administration IMAGES Chest X-Ray (10/20/16): Cardiomegaly with no signs of pneumonia, atelectasis, pneumothorax, or pleural effusions. No signs of lung mass. CT Head (10/20/16): No acute hemorrhage or infarction. Abdomen/Pelvic/Chest CT (10/20/16): Overall low lung volumes with mosaic lung attenuation is nonspecific and could be secondary to imaging in the expiratory phase or could be secondary to an element of air trapping seen in airway disease. Correlate with clinical history. No focal consolidation or mass seen. 3 to 4 mm right lower lobe groundglass nodule. Follow-up CT scan in 12 months is suggested. Dilated pulmonary trunk at 3.9 cm suggestive of an element of pulmonary hypertension. Bilateral gynecomastia. Marked splenomegaly with splenorenal shunting. This is of unclear etiology. Appendix not visualized however there are no indirect findings of acute appendicitis. Status post cholecystectomy. Duplex of Bilateral Lower Extremities (10/20/16): There is no evidence of deep venous thromboses in both lower extremities. Chest X-Ray (10/22/16): No acute pathology Foot X-Ray (10/24/16): Ulceration at the tip of the big toe. No definite radiographic evidence of osteomyelitis. LOWER EXTREMITY MRI (10/26/16): 1. Soft tissue edema over the dorsal aspect of the forefoot. 2. Bandage over the distal aspect of the first toe distal phalanx with soft tissue edema. 3. No definite evidence of osteomyelitis. If clinical concern for osteomyelitis persists, a follow- up MRI could be obtained. ASSESSMENT/PLAN: Patient is a 55 year old male with a PMHx of treated Hepatitis C, Stable HIV on HAART with last CD4 667 and viral load <20copies, HTN, Polysubstance abuse on Methadone who was brought in by his PCP for fever, shortness of breath, and productive cough. Patient was found to be septic and admitted for further monitoring and management. Sepsis Secondary to possible Cellulitis of left hallux- Improving -MRI negative for osteomyelitis -First Blood cultures (10/20/16) positive for Equinos -First Wound cultures (10/24/16) positive for staph coagulase negative -S/P debridement of left first two (10/28) -Wound cultures (10/28/16) from bone biopsy pending -Amoxicillin discontinued from hepatic transaminitis. Continue Vancomycin 1250mg BID day #2. Total IV abx #11 -Will need a colonoscopy due to cultures growing strep Equinus, which may cause GI malignancy Transaminitis -Possibly from Amoxicillin -Abx switched to Vancomycin -Hx of Hepatitis C but has been treated three years ago with Capo -Is taking Complera for HIV -Will continue to monitor Acute metabolic Encephalopathy- Resolved -Likely secondary to sepsis vs. Drug intoxication -Patient has history of alcohol and IV drug abuse -Ammonia level normal -Urine toxicology negative except for methadone -Alcohol level negative -Head CT negative RLQ Abdominal Pain- Chronic and Improved -CT Abdo/Pelvis negative for acute pathology Acute Kidney Injury- Resolved -Possibly secondary to rhabdomyolysis -Continue to monitor BMP Rhabdomyolysis-Resolved Thrombocytopenia and Neutropenia- Chronic and Stable -secondary to sepsis -Today's WBC 3.7 -Today's Platelets 128 -Transfuse if levels <10,000 or <30,000 if actively bleeding HIV- Chronic and Stable -Stable with last CD4 667 and last Viral load <20 copies -Continue with Tenof Df daily Polysubstance Abuse -Denies any recent use -Alcohol level negative -Urine toxicology negative -Continue with Methadone 95mg daily HTN- Controlled -Controlled with Norvasc 5mg daily -Continue to monitor BP Depression -Continue with Remeron 15mg daily -Continue Trazadone 100mg HS F/E/N -On no fluids -Electrolytes wnl -Sodium controlled diet Prophylaxis -Heparin 5000 units BID SQ for DVT Disposition -Bone biopsy pending Visit type - Emergency Visit Emergency Visit: Yes ED Registration Date: 10/20/16 Care time: The patient presented to the Emergency Department on the above date and was hospitalized for further evaluation of their emergent condition. - New Patient This patient is new to me today: No - Critical Care Critical Care patient: No
[2016-11-01] MEDS: traZODone HCL 50 MG TABLET (FP) PO SCH (21:10)
[2016-11-01] MEDS: LIDOCAINE PATCH REMOVAL MC SCH (21:11)
[2016-11-02] MEDS ORDERED: METHADONE HCL 10 MG TABLET ONE (05:31)
[2016-11-02] MEDS ORDERED: METHADONE HCL 5 MG TABLET ONE (05:32)
[2016-11-02] MEDS ORDERED: METHADONE HCL 40 MG DISPERSABLE TABLET ONE (05:32)
[2016-11-02] MEDS: METHADONE 80 MG, METHADONE 10 MG, METHADONE 5 MG PO SCH (05:36)
[2016-11-02 07:08] LABS: MCH 30.4 pg (25.7-33.7); MCHC 33.3 g/dl (32.0-35.9); MEAN CELL VOLUME 91.1 fl (80-96); MEAN PLT VOLUME 8.4 fl (7.5-11.1); PLATELET COUNT 127 K/MM3 (134-434); RDW 14.9 % (11.9-15.9); WHITE BLOOD COUNT 3.4 K/mm3 (4.0-10.0)
[2016-11-02 07:43] LABS: ALBUMIN 2.7 g/dl (3.4-5.0); ANION GAP 8 (8-16); CALCIUM 8.5 mg/dL (8.5-10.1); CO2 29 mmol/L (21-32); GLUCOSE,RANDOM 81 mg/dL (74-106); SGPT/ALT 153 U/L (12-78)
[2016-11-02 07:45] LABS: ALK PHOS 153 U/L (45-117); BILIRUBIN,TOTAL 0.7 mg/dL (0.2-1.0); CREATININE 1.1 mg/dL (0.7-1.3); TOT PROT 7.3 g/dl (6.4-8.2)
[2016-11-02 07:50] LABS: SGOT/AST 408 U/L (15-37)
[2016-11-02] MEDS ORDERED: PT OWN MED DRAWER 7, Y5N ONE (09:33)
[2016-11-02] MEDS: HEPARIN NA (PORCINE) 5,000 UNITS/ML 1ML VIAL SQ SCH ×2 (09:45→21:48)
[2016-11-02] MEDS: EMTRICITAB/RILPIVIRINE/TENOFOV 1 EACH TABLET PO SCH (09:45)
[2016-11-02] MEDS: LIDOCAINE 5% TOPICAL PATCH TP SCH (09:45)
[2016-11-02] MEDS: MULTIVITAMINS (DAILY MVI) TABLET (FP) PO SCH (09:45)
[2016-11-02] MEDS: MIRTAZAPINE 15 MG TABLET (FP) PO SCH (09:45)
[2016-11-02] MEDS: amLODIPine BESYLATE 5 MG TABLET (FP) PO SCH (09:45)
[2016-11-02] MEDS: VANCOMYCIN 1,250 MG in DEXTROSE 5%-WATER - 250 ML IVPB SCH ×2 (11:19→23:37)
[2016-11-02] MEDS: MUPIROCIN CA 2% TOPICAL CREAM 15 GM TUBE TP SCH ×2 (11:19→21:47)
--- NOTE | 2016-11-02 13:25 | PN ---
Progress Note, Physician History of Present Illness: Afebrile, tolerating abx therapy. - Current Medication List Current Medications: Active Medications Acetaminophen (Tylenol -) 500 mg PO Q6H PRN PRN Reason: FEVER OR PAIN Amlodipine Besylate (Norvasc -) 5 mg PO DAILY [facility] Last Admin: 11/02/16 09:45 Dose: Not Given Emtricitabine/Rilpivirine/Tenofovir (Complera -) 1 each PO DAILY [facility] Last Admin: 11/02/16 09:45 Dose: 1 each Heparin Sodium (Porcine) (Heparin -) 5,000 unit SQ BID [facility] Last Admin: 11/02/16 09:45 Dose: Not Given Vancomycin HCl 1,250 mg/ (Dextrose) 250 mls @ 166.667 mls/hr IVPB BID@1100, 2300 [facility] PRN Reason: Protocol Last Admin: 11/02/16 11:19 Dose: 166.667 mls/hr Lidocaine (Lidoderm Patch -) 1 patch TP DAILY [facility] Last Admin: 11/02/16 09:45 Dose: Not Given Methadone HCl 80 mg/ Methadone (HCl 10 mg/ Methadone HCl 5 mg) 95 mg PO DAILY@ 0600 [facility] Last Admin: 11/02/16 05:36 Dose: 95 mg Mirtazapine (Remeron -) 15 mg PO DAILY [facility] Last Admin: 11/02/16 09:45 Dose: 15 mg Miscellaneous (Lidoderm Patch Removal) 1 each MC DAILY@2200 [facility] Last Admin: 11/01/16 21:11 Dose: Not Given Multivitamins/Minerals/Vitamin C (Tab-A-Vit -) 1 tab PO DAILY [facility] Last Admin: 11/02/16 09:45 Dose: 1 tab Mupirocin (Bactroban 2% Cream -) 1 applic TP BID [facility] Last Admin: 11/02/16 11:19 Dose: 1 applic Trazodone HCl (Desyrel -) 100 mg PO HS [facility] Last Admin: 11/01/16 21:10 Dose: 100 mg - Objective Vital Signs: Vital Signs Temperature 98.1 F 11/02/16 09:09 Pulse Rate 66 11/02/16 09:09 Respiratory Rate 20 11/02/16 09:09 Blood Pressure 93/45 11/02/16 09:09 O2 Sat by Pulse Oximetry (%) 96 10/29/16 21:00 Constitutional: Yes: No Distress, Calm Neck: Yes: Supple Cardiovascular: Yes: Regular Rate and Rhythm Respiratory: Yes: Regular, CTA Bilaterally Gastrointestinal: Yes: Normal Bowel Sounds, Soft Edema: No Labs: CBC, BMP 11/02/16 06:15 11/02/16 06:15 INR, PTT INR 1.53 (0.82-1.09) H D 10/20/16 12:09 Problem List - Problems (1) Bacteremia Code(s): R78.81 - BACTEREMIA (2) Sepsis syndrome Code(s): HEC6581 - (3) HIV disease Code(s): B20 - HUMAN IMMUNODEFICIENCY VIRUS [HIV] DISEASE (4) Hep C w/o coma, chronic Code(s): B18.2 - CHRONIC VIRAL HEPATITIS C (5) Hypertension Code(s): I10 - ESSENTIAL (PRIMARY) HYPERTENSION Qualifiers: Hypertension type: essential hypertension Qualified Code(s): I10 - Essential (primary) hypertension (6) Thrombocytopenia Code(s): D69.6 - THROMBOCYTOPENIA, UNSPECIFIED (7) Osteomyelitis of ankle or foot Code(s): M86.9 - OSTEOMYELITIS, UNSPECIFIED (8) Abnormal LFTs Code(s): R79.89 - OTHER SPECIFIED ABNORMAL FINDINGS OF BLOOD CHEMISTRY Assessment/Plan 10/21/2016 TDS, Grossly normal LV fxn, mild MR and TR 1. Strep equinis bacteremia with cellulitis and osteo of left 1st toe post bone biopsy 2. Leukopenia and thrombocytopenia referable to sepsis 3. HIV on HAART and post Hep C treatment 4. Polysubstance abuse 5. HTN 6. Abnl LFTs h/o cholecystectomy possibly related to Ampicillin PLAN: 1. Vanco course, awaiting bone biopsy and cultures, but refuses PICC line placement 2. MIKE neg for endocarditis 3. Trend LFTs , avoid hepatotoxins 4. Continue Norvasc 5 qd 5. DVT prophylaxis
--- NOTE | 2016-11-02 14:52 | PN ---
Physical Exam: SUBJECTIVE: Patient seen and examined by me at bedside. No overnight events noted. Patient offers no complaints. Otherwise, patient denies fever, chills, nausea, vomiting, abdominal pain, chest pain, palpitations, shortness of breath. OBJECTIVE: Vital Signs Period Temp Pulse Resp BP Sys/Forman Pulse Ox Last 24 Hr 98.1 F-98.8 F 52-68 18-20 93-134/45-78 GENERAL: Awake, alert, in no acute distress. LUNGS: Rhonchi bilaterally, no wheezes or crackles. HEART: Regular rate and rhythm, normal S1 and S2 without murmur, rub or gallop. ABDOMEN: Soft, protruding and distended, nontender. Normoactive bowel sounds LOWER EXTREMITIES: Erythema and tenderness of bilateral legs L>R with wrapping around the left foot c/d/i NEUROLOGICAL: No facial droop. Laboratory Results - last 24 hr 11/02/16 11/02/16 06:15 06:15 WBC 3.4 L RBC 3.95 L Hgb 12.0 Hct 36.0 MCV 91.1 MCHC 33.3 RDW 14.9 Plt Count 127 L MPV 8.4 Sodium 139 Potassium 3.8 Chloride 102 Carbon Dioxide 29 Anion Gap 8 BUN 10 Creatinine 1.1 Creat Clearance w eGFR > 60 Random Glucose 81 Calcium 8.5 Total Bilirubin 0.7 AST 408 H ALT 153 H Alkaline Phosphatase 153 H Total Protein 7.3 Albumin 2.7 L Active Medications Generic Name Dose Route Start Last Admin Trade Name Freq PRN Reason Stop Dose Admin Acetaminophen 500 mg 10/28/16 09:51 Tylenol - PO Q6H PRN FEVER OR PAIN Amlodipine Besylate 5 mg 10/28/16 10:00 11/02/16 09:45 Norvasc - PO Not Given DAILY HAN Emtricitabine/Rilpivirine/Tenofovir 1 each 10/28/16 10:00 11/02/16 09:45 Complera - PO 1 each DAILY HAN Administration Heparin Sodium (Porcine) 5,000 unit 10/29/16 22:00 11/02/16 09:45 Heparin - SQ Not Given BID HAN Vancomycin HCl 1,250 mg/ 250 mls @ 166.667 mls/hr 10/31/16 11:15 11/02/16 11:19 Dextrose IVPB 166.667 mls/hr BID@1100,2300 HAN Administration Protocol Lidocaine 1 patch 10/28/16 10:00 11/02/16 09:45 Lidoderm Patch - TP Not Given DAILY HAN Methadone HCl 80 mg/ Methadone 95 mg 10/29/16 06:00 11/02/16 05:36 HCl 10 mg/ Methadone HCl 5 mg PO 95 mg DAILY@0600 HAN Administration Mirtazapine 15 mg 10/28/16 10:00 11/02/16 09:45 Remeron - PO 15 mg DAILY HAN Administration Miscellaneous 1 each 10/28/16 22:00 11/01/16 21:11 Lidoderm Patch Removal MC Not Given DAILY@2200 [facility] Multivitamins/Minerals/Vitamin C 1 tab 10/28/16 10:00 11/02/16 09:45 Tab-A-Vit - PO 1 tab DAILY HAN Administration Mupirocin 1 applic 10/28/16 10:00 11/02/16 11:19 Bactroban 2% Cream - TP 1 applic BID HAN Administration Trazodone HCl 100 mg 10/28/16 22:00 11/01/16 21:10 Desyrel - PO 100 mg HS HAN Administration IMAGES Chest X-Ray (10/20/16): Cardiomegaly with no signs of pneumonia, atelectasis, pneumothorax, or pleural effusions. No signs of lung mass. CT Head (10/20/16): No acute hemorrhage or infarction. Abdomen/Pelvic/Chest CT (10/20/16): Overall low lung volumes with mosaic lung attenuation is nonspecific and could be secondary to imaging in the expiratory phase or could be secondary to an element of air trapping seen in airway disease. Correlate with clinical history. No focal consolidation or mass seen. 3 to 4 mm right lower lobe groundglass nodule. Follow-up CT scan in 12 months is suggested. Dilated pulmonary trunk at 3.9 cm suggestive of an element of pulmonary hypertension. Bilateral gynecomastia. Marked splenomegaly with splenorenal shunting. This is of unclear etiology. Appendix not visualized however there are no indirect findings of acute appendicitis. Status post cholecystectomy. Duplex of Bilateral Lower Extremities (10/20/16): There is no evidence of deep venous thromboses in both lower extremities. Chest X-Ray (10/22/16): No acute pathology Foot X-Ray (10/24/16): Ulceration at the tip of the big toe. No definite radiographic evidence of osteomyelitis. LOWER EXTREMITY MRI (10/26/16): 1. Soft tissue edema over the dorsal aspect of the forefoot. 2. Bandage over the distal aspect of the first toe distal phalanx with soft tissue edema. 3. No definite evidence of osteomyelitis. If clinical concern for osteomyelitis persists, a follow- up MRI could be obtained. ASSESSMENT/PLAN: Patient is a 55 year old male with a PMHx of treated Hepatitis C, Stable HIV on HAART with last CD4 667 and viral load <20copies, HTN, Polysubstance abuse on Methadone who was brought in by his PCP for fever, shortness of breath, and productive cough. Patient was found to be septic and admitted for further monitoring and management. Sepsis Secondary to possible Cellulitis of left hallux- Improving -MRI negative for osteomyelitis -First Blood cultures (10/20/16) positive for Equinos -First Wound cultures (10/24/16) positive for staph coagulase negative -S/P debridement of left first two (10/28) -Wound cultures (10/28/16) from bone biopsy is pansensitive to abx. -Continue Vancomycin 1250mg BID day #3. Total IV abx #12 -Vanc trough ordered for tonight -Will need a colonoscopy due to cultures growing strep Equinus, which may cause GI malignancy Transaminitis -Continues to trend up -Possibly from Amoxicillin -Abx switched to Vancomycin -Hx of Hepatitis C but has been treated three years ago with Harvoni -Is taking Complera for HIV -Will continue to monitor Acute metabolic Encephalopathy- Resolved -Likely secondary to sepsis vs. Drug intoxication -Patient has history of alcohol and IV drug abuse -Ammonia level normal -Urine toxicology negative except for methadone -Alcohol level negative -Head CT negative RLQ Abdominal Pain- Chronic and Improved -CT Abdo/Pelvis negative for acute pathology Acute Kidney Injury- Resolved -Possibly secondary to rhabdomyolysis -Continue to monitor BMP Rhabdomyolysis-Resolved Thrombocytopenia and Neutropenia- Chronic and Stable -secondary to sepsis -Today's WBC 3.7 -Today's Platelets 128 -Transfuse if levels <10,000 or <30,000 if actively bleeding HIV- Chronic and Stable -Stable with last CD4 667 and last Viral load <20 copies -Continue with Tenof Df daily Polysubstance Abuse -Denies any recent use -Alcohol level negative -Urine toxicology negative -Continue with Methadone 95mg daily HTN- Controlled -Controlled with Norvasc 5mg daily -Continue to monitor BP Depression -Continue with Remeron 15mg daily -Continue Trazadone 100mg HS F/E/N -On no fluids -Electrolytes wnl -Sodium controlled diet Prophylaxis -Heparin 5000 units BID SQ for DVT Disposition -Continues to have elevated transaminitis. Need to continu to monitor off ampicillin Visit type - Emergency Visit Emergency Visit: Yes ED Registration Date: 10/20/16 Care time: The patient presented to the Emergency Department on the above date and was hospitalized for further evaluation of their emergent condition. - New Patient This patient is new to me today: No - Critical Care Critical Care patient: No
--- NOTE | 2016-11-02 15:30 | PN ---
Progress Note (short form) - Note Progress Note: no fevers s/p operative debridement of the big toe Vital Signs Period Temp Pulse Resp BP Sys/Forman Pulse Ox Last 24 Hr 98.1 F-98.8 F 52-68 18-20 93-134/45-78 cor-rrr lungs clear abd soft,nt ext dry ulcer right big toe CBC, BMP 11/02/16 06:15 11/02/16 06:15 Microbiology 10/28/16 11:30 Wound-Other Gram Stain - Final 10/28/16 11:30 Wound-Other Wound Culture - Final Staphylococcus Coagulase Neg 10/26/16 06:00 Sputum - Expectorated Gram Stain - Final 10/26/16 06:00 Sputum - Expectorated Sputum Culture - Final Yeast Like Organism 10/20/16 20:30 Nasopharyngeal Swab Respiratory Virus Panel - Final 10/24/16 19:15 Toe - Left Hallux Gram Stain - Final 10/24/16 19:15 Toe - Left Hallux Wound Culture - Final Staphylococcus Coagulase Neg Staphylococcus Coagulase Neg#2 Diphtheroid/Corynebacterium 10/20/16 12:09 Blood - Peripheral Venous Blood Culture - Final Streptococcus Equinus 2 10/22/16 07:00 Blood - Peripheral Venous Blood Culture - Final NO GROWTH AFTER 5 DAYS INCUBATION 10/22/16 07:00 Blood - Peripheral Venous Blood Culture - Final NO GROWTH AFTER 5 DAYS INCUBATION 10/20/16 12:09 Blood - Peripheral Venous Blood Culture - Preliminary Streptococcus Equinus 2 10/20/16 13:21 Urine - Urine Clean Catch Urine Culture - Final 10/20/16 17:44 Urine For Antigen Detection Legionella Antigen - Final 10/20/16 17:44 Urine For Antigen Detection Streptococcus pneumoniae Antigen (M - Final 10/20/16 20:30 Nasopharyngeal Swab Influenza Types A,B Antigen (TOÑO) - Final 10/20/16 20:30 Nasopharyngeal Swab - Final MIKE negative a/p sepsis syndrome strep equinis bacteremia- switched to vancomycin due to elevated LFTs, check trough ?osteo- f/u cultures abnl lfts- trend- if continues to remain high will need to hold ART as well hiv on art treated hep c d/w resident Problem List - Problems (1) Sepsis syndrome Code(s): [id number] - (2) Bacteremia Code(s): R78.81 - BACTEREMIA (3) Cellulitis Code(s): L03.90 - CELLULITIS, UNSPECIFIED (4) YVON (acute kidney injury) Code(s): N17.9 - ACUTE KIDNEY FAILURE, UNSPECIFIED (5) Rhabdomyolysis Code(s): M62.82 - RHABDOMYOLYSIS (6) HIV disease Code(s): B20 - HUMAN IMMUNODEFICIENCY VIRUS [HIV] DISEASE (7) Hep C w/o coma, chronic Code(s): B18.2 - CHRONIC VIRAL HEPATITIS C (8) Altered mental status Code(s): R41.82 - ALTERED MENTAL STATUS, UNSPECIFIED Qualifiers: Altered mental status type: unspecified Qualified Code(s): R41.82 - Altered mental status, unspecified
--- NOTE | 2016-11-02 16:59 | PN ---
Teaching Attending Note Name of Resident: Bri Mars ATTENDING PHYSICIAN STATEMENT I saw and evaluated the patient. I reviewed the resident's note and discussed the case with the resident. I agree with the resident's findings and plan as documented. SUBJECTIVE: No complaints. OBJECTIVE: Vital Signs Period Temp Pulse Resp BP Sys/Forman Pulse Ox Last 24 Hr 98.1 F-98.8 F 52-68 18-20 93-134/45-78 HEART: S1S2, RRR LUNGS: Clear ABDOMEN: Soft, non-tender, non-distended, normal BS EXTREMITIES: No edema. Left foot wrapped ASSESSMENT AND PLAN: This is a 55 year old man with a history of HIV, hepatitis C, cirrhosis, HTN, polysubstance abuse, depression who presented to the ER with fever, productive cough, and SOB. 1. Sepsis secondary to cellulitis and possible osteomyelitis of left 1st toe with Strep equinis bacteremia - Continue Vancomycin - Amoxicillin discontinued secondary to hepatic transaminitis - s/p I&D of left 1st toe abscess 10/24 - s/p debridement of left 1st toe 10/28 - Blood cultures (10/22) negative - Bone biopsy culture growing coagulase negative Staph 2. Acute hypoxic respiratory failure - Resolved 3. Acute metabolic encephalopathy secondary to sepsis - Improved 4. Acute kidney injury secondary to sepsis, rhabdomyolysis - Improved 5. Rhabdomyolysis - Resolved 6. Leukopenia 7. Thrombocytopenia - Improved 8. Hypertension - Continue Norvasc 9. HIV - Continue Complera 10. Hepatitis C - s/p treatment 11. Cirrhosis 12. Depression - Continue Remeron, Trazodone 13. History of polysubstance abuse - Continue Methadone 14. Hepatic transaminitis - No improvement since discontinuing amoxicillin - Continue to monitor - may need to hold Complera
[2016-11-02] MEDS ORDERED: traMADol HCL 50 MG TABLET PO PRN (21:02)
[2016-11-02] MEDS: traZODone HCL 50 MG TABLET (FP) PO SCH (21:46)
[2016-11-02] MEDS: LIDOCAINE PATCH REMOVAL MC SCH (21:47)
[2016-11-03] MEDS ORDERED: VANCOMYCIN 1 GRAM (PRE-DOCKED) 1,000 MG/250 ML BAG IVPB SCH
[2016-11-03] MEDS ORDERED: METHADONE HCL 5 MG TABLET ONE (05:49)
[2016-11-03] MEDS ORDERED: METHADONE HCL 40 MG DISPERSABLE TABLET ONE (05:49)
[2016-11-03] MEDS ORDERED: METHADONE HCL 10 MG TABLET ONE (05:49)
[2016-11-03] MEDS: METHADONE 80 MG, METHADONE 10 MG, METHADONE 5 MG PO SCH (05:55)
--- NOTE | 2016-11-03 07:35 | PN ---
Physical Exam: SUBJECTIVE: Patient seen and examined by me at bedside. No overnight events noted. Patient remains afebrile and offers no complaints. Otherwise, patient denies fever, chills, nausea, vomiting, abdominal pain, chest pain, palpitations , shortness of breath, dizziness, headaches. OBJECTIVE: Vital Signs Period Temp Pulse Resp BP Sys/Forman Pulse Ox Last 24 Hr 98.1 F-98.8 F 66-68 18-21 93-147/45-89 GENERAL: Awake, alert, in no acute distress. LUNGS: Rhonchi bilaterally, no wheezes or crackles. HEART: Regular rate and rhythm, normal S1 and S2 without murmur, rub or gallop. ABDOMEN: Soft, protruding and distended, nontender. Normoactive bowel sounds LOWER EXTREMITIES: Erythema and tenderness of bilateral legs L>R with wrapping around the left foot c/d/i NEUROLOGICAL: No facial droop. Laboratory Results - last 24 hr 11/02/16 11/02/16 06:15 21:47 Sodium 139 Potassium 3.8 Chloride 102 Carbon Dioxide 29 Anion Gap 8 BUN 10 Creatinine 1.1 Creat Clearance w eGFR > 60 Random Glucose 81 Calcium 8.5 Total Bilirubin 0.7 AST 408 H ALT 153 H Alkaline Phosphatase 153 H Total Protein 7.3 Albumin 2.7 L Vancomycin Pre-Dose 16.859 H* D Active Medications Generic Name Dose Route Start Last Admin Trade Name Freq PRN Reason Stop Dose Admin Acetaminophen 500 mg 10/28/16 09:51 Tylenol - PO Q6H PRN FEVER OR PAIN Amlodipine Besylate 5 mg 10/28/16 10:00 11/02/16 09:45 Norvasc - PO Not Given DAILY [facility] Emtricitabine/Rilpivirine/Tenofovir 1 each 10/28/16 10:00 11/02/16 09:45 Complera - PO 1 each DAILY [facility] Administration Heparin Sodium (Porcine) 5,000 unit 10/29/16 22:00 11/02/16 21:48 Heparin - SQ Not Given BID HAN Lidocaine 1 patch 10/28/16 10:00 11/02/16 09:45 Lidoderm Patch - TP Not Given DAILY HAN Methadone HCl 80 mg/ Methadone 95 mg 10/29/16 06:00 11/03/16 05:55 HCl 10 mg/ Methadone HCl 5 mg PO 95 mg DAILY@0600 HAN Administration Mirtazapine 15 mg 10/28/16 10:00 11/02/16 09:45 Remeron - PO 15 mg DAILY HAN Administration Miscellaneous 1 each 10/28/16 22:00 11/02/16 21:47 Lidoderm Patch Removal MC Not Given DAILY@2200 [facility] Multivitamins/Minerals/Vitamin C 1 tab 10/28/16 10:00 11/02/16 09:45 Tab-A-Vit - PO 1 tab DAILY HAN Administration Mupirocin 1 applic 10/28/16 10:00 11/02/16 21:47 Bactroban 2% Cream - TP 1 applic BID HAN Administration Tramadol HCl 50 mg 11/02/16 21:02 11/02/16 21:46 Ultram - PO 50 mg Q6H PRN Administration PAIN Trazodone HCl 100 mg 10/28/16 22:00 11/02/16 21:46 Desyrel - PO 100 mg HS HAN Administration Vancomycin HCl 1,000 mg 11/03/16 00:00 11/02/16 23:52 Vancomycin (Pre-Docked) IVPB 1,000 mg BID@0000,1200 HAN Administration IMAGES Chest X-Ray (10/20/16): Cardiomegaly with no signs of pneumonia, atelectasis, pneumothorax, or pleural effusions. No signs of lung mass. CT Head (10/20/16): No acute hemorrhage or infarction. Abdomen/Pelvic/Chest CT (10/20/16): Overall low lung volumes with mosaic lung attenuation is nonspecific and could be secondary to imaging in the expiratory phase or could be secondary to an element of air trapping seen in airway disease. Correlate with clinical history. No focal consolidation or mass seen. 3 to 4 mm right lower lobe groundglass nodule. Follow-up CT scan in 12 months is suggested. Dilated pulmonary trunk at 3.9 cm suggestive of an element of pulmonary hypertension. Bilateral gynecomastia. Marked splenomegaly with splenorenal shunting. This is of unclear etiology. Appendix not visualized however there are no indirect findings of acute appendicitis. Status post cholecystectomy. Duplex of Bilateral Lower Extremities (10/20/16): There is no evidence of deep venous thromboses in both lower extremities. Chest X-Ray (10/22/16): No acute pathology Foot X-Ray (10/24/16): Ulceration at the tip of the big toe. No definite radiographic evidence of osteomyelitis. LOWER EXTREMITY MRI (10/26/16): 1. Soft tissue edema over the dorsal aspect of the forefoot. 2. Bandage over the distal aspect of the first toe distal phalanx with soft tissue edema. 3. No definite evidence of osteomyelitis. If clinical concern for osteomyelitis persists, a follow- up MRI could be obtained. ASSESSMENT/PLAN: Patient is a 55 year old male with a PMHx of treated Hepatitis C, Stable HIV on HAART with last CD4 667 and viral load <20copies, HTN, Polysubstance abuse on Methadone who was brought in by his PCP for fever, shortness of breath, and productive cough. Patient was found to be septic and admitted for further monitoring and management. Sepsis Secondary to possible Cellulitis of left hallux- Improving -MRI negative for osteomyelitis -First Blood cultures (10/20/16) positive for Equinos -First Wound cultures (10/24/16) positive for staph coagulase negative -S/P debridement of left first two (10/28) -Wound cultures (10/28/16) from bone biopsy is pansensitive to abx. -Continue Vancomycin 1250mg BID day #4. Total IV abx #13 -Will need a colonoscopy due to cultures growing strep Equinus, which may cause GI malignancy Transaminitis -Possibly from Amoxicillin -Abx switched to Vancomycin -Hx of Hepatitis C but has been treated three years ago with Capo -Is taking Complera for HIV -If LFT's continue to trend up, will consider stopping HIV medication Complera -Will continue to monitor Acute metabolic Encephalopathy- Resolved -Likely secondary to sepsis vs. Drug intoxication -Patient has history of alcohol and IV drug abuse -Ammonia level normal -Urine toxicology negative except for methadone -Alcohol level negative -Head CT negative RLQ Abdominal Pain- Chronic and Improved -CT Abdo/Pelvis negative for acute pathology Acute Kidney Injury- Resolved -Possibly secondary to rhabdomyolysis -Continue to monitor BMP Rhabdomyolysis-Resolved Thrombocytopenia and Neutropenia- Chronic and Stable -secondary to sepsis -Today's WBC 3.7 -Today's Platelets 128 -Transfuse if levels <10,000 or <30,000 if actively bleeding HIV- Chronic and Stable -Stable with last CD4 667 and last Viral load <20 copies -Continue with Tenof Df daily Polysubstance Abuse -Denies any recent use -Alcohol level negative -Urine toxicology negative -Continue with Methadone 95mg daily HTN- Controlled -Controlled with Norvasc 5mg daily -Continue to monitor BP Depression -Continue with Remeron 15mg daily -Continue Trazadone 100mg HS F/E/N -On no fluids -Electrolytes wnl -Sodium controlled diet Prophylaxis -Heparin 5000 units BID SQ for DVT Disposition -Continues to have elevated transaminitis. Need to continue to monitor off ampicillin
[2016-11-03 08:35] LABS: MCH 30.5 pg (25.7-33.7); MEAN CELL VOLUME 92.3 fl (80-96); MEAN PLT VOLUME 8.4 fl (7.5-11.1); PLATELET COUNT 128 K/MM3 (134-434); RDW 14.7 % (11.9-15.9); WHITE BLOOD COUNT 3.5 K/mm3 (4.0-10.0)
[2016-11-03] MEDS ORDERED: PT OWN MED DRAWER 7, Y5N ONE (09:06)
[2016-11-03 09:08] LABS: ALBUMIN 2.9 g/dl (3.4-5.0); ANION GAP 4 (8-16); BILIRUBIN,TOTAL 1.1 mg/dL (0.2-1.0); CALCIUM 8.8 mg/dL (8.5-10.1); CO2 32 mmol/L (21-32); CREATININE 1.1 mg/dL (0.7-1.3); GLUCOSE,RANDOM 79 mg/dL (74-106); SGPT/ALT 166 U/L (12-78); TOT PROT 7.8 g/dl (6.4-8.2)
[2016-11-03 09:09] LABS: ALK PHOS 176 U/L (45-117)
[2016-11-03 09:18] LABS: SGOT/AST 426 U/L (15-37)
[2016-11-03] MEDS: HEPARIN NA (PORCINE) 5,000 UNITS/ML 1ML VIAL SQ SCH (10:04)
[2016-11-03] MEDS: LIDOCAINE 5% TOPICAL PATCH TP SCH (10:04)
[2016-11-03] MEDS: MIRTAZAPINE 15 MG TABLET (FP) PO SCH (10:04)
[2016-11-03] MEDS: amLODIPine BESYLATE 5 MG TABLET (FP) PO SCH (10:04)
[2016-11-03] MEDS: MULTIVITAMINS (DAILY MVI) TABLET (FP) PO SCH (10:04)
[2016-11-03] MEDS: MUPIROCIN CA 2% TOPICAL CREAM 15 GM TUBE TP SCH (10:06)
[2016-11-03] MEDS: EMTRICITAB/RILPIVIRINE/TENOFOV 1 EACH TABLET PO SCH (10:26)
--- NOTE | 2016-11-03 10:49 | PN ---
Teaching Attending Note Name of Resident: Bri Mars ATTENDING PHYSICIAN STATEMENT I saw and evaluated the patient. I reviewed the resident's note and discussed the case with the resident. I agree with the resident's findings and plan as documented. SUBJECTIVE: No complaints. OBJECTIVE: Vital Signs Period Temp Pulse Resp BP Sys/Forman Pulse Ox Last 24 Hr 98.4 F-98.8 F 65-68 18-21 120-147/61-89 90 HEART: S1S2, RRR LUNGS: Clear ABDOMEN: Soft, non-tender, non-distended, normal BS EXTREMITIES: No edema. Left 1st toe plantar wound clean, dry ASSESSMENT AND PLAN: This is a 55 year old man with a history of HIV, hepatitis C, cirrhosis, HTN, polysubstance abuse, depression who presented to the ER with fever, productive cough, and SOB. 1. Sepsis secondary to cellulitis and possible osteomyelitis of left 1st toe with Strep equinus bacteremia - Continue Vancomycin - Amoxicillin discontinued secondary to hepatic transaminitis - s/p I&D of left 1st toe abscess 10/24 - s/p debridement of left 1st toe 10/28 - Blood cultures (10/22) negative - Bone biopsy culture growing coagulase negative Staph 2. Acute hypoxic respiratory failure - Resolved 3. Acute metabolic encephalopathy secondary to sepsis - Improved 4. Acute kidney injury secondary to sepsis, rhabdomyolysis - Improved 5. Rhabdomyolysis - Resolved 6. Leukopenia 7. Thrombocytopenia - Improved 8. Hypertension - Continue Norvasc 9. HIV - Continue Complera 10. Hepatitis C - s/p treatment 11. Cirrhosis 12. Depression - Continue Remeron, Trazodone 13. History of polysubstance abuse - Continue Methadone 14. Hepatic transaminitis - No improvement since discontinuing amoxicillin - RUQ US - Continue to monitor - may need to hold Complera
--- NOTE | 2016-11-03 11:08 | PN ---
Progress Note (short form) - Note Progress Note: ID Discussed with Dr Sim Unclear patient has osteo Has had 14 days iv antibiotics for original blood cultures Selected Entries 11/03/16 06:00 Temperature 98.7 F Pulse Rate 65 Respiratory 20 Rate Blood Pressure 120/61 Laboratory Tests 11/03/16 11/03/16 08:26 08:26 WBC 3.5 L Hgb 12.6 Hct 38.1 Plt Count 128 L Total Bilirubin 1.1 H D AST 426 H ALT 166 H Alkaline Phosphatase 176 H Assessment Plan is stop antibiotics Regarding Liver enzymes would stop hi HIV meds for now ? contributing factor Discharge planning Awa PACHECO
[2016-11-03 11:20] VITALS: BP 140/81
[2016-11-03 13:49] VITALS: PULSE 71; TEMP 98.4
--- NOTE | 2016-11-03 14:24 | PN ---
Progress Note, Physician - Current Medication List Current Medications: Active Medications Acetaminophen (Tylenol -) 500 mg PO Q6H PRN PRN Reason: FEVER OR PAIN Amlodipine Besylate (Norvasc -) 5 mg PO DAILY [facility] Last Admin: 11/03/16 10:04 Dose: 5 mg Heparin Sodium (Porcine) (Heparin -) 5,000 unit SQ BID [facility] Last Admin: 11/03/16 10:04 Dose: Not Given Lidocaine (Lidoderm Patch -) 1 patch TP DAILY [facility] Last Admin: 11/03/16 10:04 Dose: Not Given Methadone HCl 80 mg/ Methadone (HCl 10 mg/ Methadone HCl 5 mg) 95 mg PO DAILY@ 0600 [facility] Last Admin: 11/03/16 05:55 Dose: 95 mg Mirtazapine (Remeron -) 15 mg PO DAILY [facility] Last Admin: 11/03/16 10:04 Dose: 15 mg Miscellaneous (Lidoderm Patch Removal) 1 each MC DAILY@2200 [facility] Last Admin: 11/02/16 21:47 Dose: Not Given Multivitamins/Minerals/Vitamin C (Tab-A-Vit -) 1 tab PO DAILY [facility] Last Admin: 11/03/16 10:04 Dose: 1 tab Mupirocin (Bactroban 2% Cream -) 1 applic TP BID [facility] Last Admin: 11/03/16 10:06 Dose: 1 applic Tramadol HCl (Ultram -) 50 mg PO Q6H PRN PRN Reason: PAIN Last Admin: 11/02/16 21:46 Dose: 50 mg Trazodone HCl (Desyrel -) 100 mg PO HS [facility] Last Admin: 11/02/16 21:46 Dose: 100 mg - Objective Vital Signs: Vital Signs Temperature 98.4 F 11/03/16 13:48 Pulse Rate 71 11/03/16 13:48 Respiratory Rate 20 11/03/16 13:48 Blood Pressure 140/81 11/03/16 11:18 O2 Sat by Pulse Oximetry (%) 90 L 11/03/16 09:19 Labs: CBC, BMP 11/03/16 08:26 11/03/16 08:26 INR, PTT INR 1.53 (0.82-1.09) H D 10/20/16 12:09
--- NOTE | 2016-11-03 16:17 | DS ---
Physical Exam: SUBJECTIVE: Patient seen and examined by me at bedside. No overnight events noted. Patient remains afebrile and offers no complaints. Otherwise, patient denies fever, chills, nausea, vomiting, abdominal pain, chest pain, palpitations , shortness of breath, dizziness, headaches. OBJECTIVE: Vital Signs Period Temp Pulse Resp BP Sys/Forman Pulse Ox Last 24 Hr 98.4 F-98.7 F 60-71 18-21 120-147/61-89 90 PHYSICAL EXAM GENERAL: Awake, alert, in no acute distress. LUNGS: Rhonchi bilaterally, no wheezes or crackles. HEART: Regular rate and rhythm, normal S1 and S2 without murmur, rub or gallop. ABDOMEN: Soft, protruding and distended, nontender. Normoactive bowel sounds LOWER EXTREMITIES: Erythema of bilateral legs L>R with wrapping around the left foot c/d/i NEUROLOGICAL: No facial droop. LABS Laboratory Results - last 24 hr 11/02/16 11/03/16 11/03/16 21:47 08:26 08:26 WBC 3.5 L RBC 4.12 Hgb 12.6 Hct 38.1 MCV 92.3 MCHC 33.0 RDW 14.7 Plt Count 128 L MPV 8.4 Sodium 137 Potassium 4.2 Chloride 101 Carbon Dioxide 32 Anion Gap 4 L BUN 10 Creatinine 1.1 Creat Clearance w eGFR > 60 Random Glucose 79 Calcium 8.8 Total Bilirubin 1.1 H D AST 426 H ALT 166 H Alkaline Phosphatase 176 H Total Protein 7.8 Albumin 2.9 L Vancomycin Pre-Dose 16.859 H* D IMAGES Chest X-Ray (10/20/16): Cardiomegaly with no signs of pneumonia, atelectasis, pneumothorax, or pleural effusions. No signs of lung mass. CT Head (10/20/16): No acute hemorrhage or infarction. Abdomen/Pelvic/Chest CT (10/20/16): Overall low lung volumes with mosaic lung attenuation is nonspecific and could be secondary to imaging in the expiratory phase or could be secondary to an element of air trapping seen in airway disease. Correlate with clinical history. No focal consolidation or mass seen. 3 to 4 mm right lower lobe groundglass nodule. Follow-up CT scan in 12 months is suggested. Dilated pulmonary trunk at 3.9 cm suggestive of an element of pulmonary hypertension. Bilateral gynecomastia. Marked splenomegaly with splenorenal shunting. This is of unclear etiology. Appendix not visualized however there are no indirect findings of acute appendicitis. Status post cholecystectomy. Duplex of Bilateral Lower Extremities (10/20/16): There is no evidence of deep venous thromboses in both lower extremities. Chest X-Ray (10/22/16): No acute pathology Foot X-Ray (10/24/16): Ulceration at the tip of the big toe. No definite radiographic evidence of osteomyelitis. LOWER EXTREMITY MRI (10/26/16): 1. Soft tissue edema over the dorsal aspect of the forefoot. 2. Bandage over the distal aspect of the first toe distal phalanx with soft tissue edema. 3. No definite evidence of osteomyelitis. If clinical concern for osteomyelitis persists, a follow- up MRI could be obtained. HOSPITAL COURSE: Patient is a 55 year old male with a PMHx of treated Hepatitis C, Stable HIV on HAART with last CD4 667 and viral load <20copies, HTN, Polysubstance abuse on Methadone who was brought in by his PCP for fever, shortness of breath, and productive cough. Patient was found to be septic and admitted for cellulitis with possible osteomyelitis of the left hallux. Patient was put on Ampicillin for a total of 10 days. MRI was negative got osteomyelitis. Patient's first blood cultures(10/20/16) was positive for Equinos. Sushi Chef performed debridement of left hallux (10/28) and first Wound cultures (10/24/16) positive for staph coagulase negative. Sushi Chef then performed bone biopsy and results were negative for osseous infection. Patient had a total of 14 days of IV antibiotics and has been afebrile with no elevated white count. Patient was then found to have elevated transaminits on day 10 and his antibiotics was switched to vancomycin due to possible side effects from the ampicillin. Patient was monitored off ampicillin for 48 hours and LFT's continued to trend up. It was then decided by the medical team and ID to discontinue HIV medication Complera temporarily and monitor LFT's as outpatient. An appointment with his PCP, Louie Mary, was set for November 07 @10:00 and with his Sushi Chef Dr. Reed for November 09 at 9:15 am. Patient was advised to have a colonoscopy within the next two months. Patient verbalized understanding. Patient stable for discharge. Date of Admission:10/20/16 Date of Discharge: 11/03/16 Minutes to complete discharge: 45 Discharge Summary Reason For Visit: PNEUMONIA Current Active Problems YVON (acute kidney injury) (Acute) Abnormal LFTs (Acute) Altered mental status (Acute) Bacteremia (Acute) Cellulitis (Acute) Drug dependence (Acute) Hepatitis C (Acute) Hypertension (Acute) Osteomyelitis of ankle or foot (Acute) Pneumonia (Acute) Rhabdomyolysis (Acute) Sepsis syndrome (Acute) Thrombocytopenia (Acute) HIV disease (Chronic) Condition: Stable - Instructions Diet, Activity, Other Instructions: -You were admitted for an infection of the left toe that required antibiotics and you will still need antibiotics. -I made an appointment for you at [facility] with the Sushi Chef Dr. Reed for Monday, November 09 at 9:15 am. -You should apply dressing over your left toe everyday with Bacitracin -Your Liver enzymes have been elevated, which might be due to the HIV medication. That medication has been discontinued for a short amount of time but you must follow up at [facility] for repeat labs within a week. I made an appointment for you with Dr. Mary at [facility] for Monday (11/07/16) at 10: 00am. -Please set up and appointment with a GI (stomach) doctor for a future colonoscopy. A recommendation will be given to you in the discharge packet. The doctors name is Dr. Tao -You will need to resume a sodium controlled diet. You may resume your daily activities. Referrals: Louie Mary NP [Primary Care Provider] - Marci Tao MD [Staff Physician] - Disposition: HOME - Home Medications Comprehensive Discharge Medication List: Ambulatory Orders Mirtazapine [Remeron -] 15 mg PO DAILY #30 tablet 10/05/16 Trazodone HCl 100 mg PO HS #60 tablet 10/05/16 Amlodipine Besylate [Norvasc -] 5 mg PO DAILY #30 tablet 10/20/16 Ibuprofen 800 mg PO Q8H #10 tablet 10/20/16 Multivitamins [Multivit ([facility] Formulary)] 1 tab PO DAILY #30 tab 10/20/16 Vit B6/Me-Thfolate/Me-B12/Ala [Podiapn Capsule] 1 cap PO DAILY #30 capsule 10/20 Methadone [Dolophine -] 95 mg PO DAILY@0600 #7 tablet MDD 1 11/03/16 This patient is new to me today: No Emergency Visit: Yes ED Registration Date: 10/20/16 Care time: The patient presented to the Emergency Department on the above date and was hospitalized for further evaluation of their emergent condition. Critical Care patient: No - Discharge Referral Referred to [facility] No
== END 2016-11-03 16:55 | disposition home or self-care (01) | DRG 710 ==
LOC: JER 11:43 → JERBED 15:49 → J6S 17:11
PROVIDERS: ADMIT Internal Medicine; ATTEND Internal Medicine
PROC: 3E0F7GC Introduction of Other Therapeutic Substance into Respiratory Tract, Via Natural or Artificial Opening (ICD-10-PCS; 2016-10-20)
PROC: B246ZZ4 Ultrasonography of Right and Left Heart, Transesophageal (ICD-10-PCS; 2016-10-25)
PROC: B24CZZ4 Ultrasonography of Pericardium, Transesophageal (ICD-10-PCS; 2016-10-25)
PROC: 0J9Q0ZZ Drainage of Right Foot Subcutaneous Tissue and Fascia, Open Approach (ICD-10-PCS; principal; 2016-10-25 13:30)
PROC: 0JBR0ZZ Excision of Left Foot Subcutaneous Tissue and Fascia, Open Approach (ICD-10-PCS; 2016-10-28)
PROC: 0QBR0ZX Excision of Left Toe Phalanx, Open Approach, Diagnostic (ICD-10-PCS; 2016-10-28)
DX: A41.9 Sepsis, unspecified organism (principal); N39.0 Urinary tract infection, site not specified; B19.20 Unspecified viral hepatitis C without hepatic coma; K74.60 Unspecified cirrhosis of liver; J18.9 Pneumonia, unspecified organism; Z21 Asymptomatic human immunodeficiency virus [HIV] infection status; F17.210 Nicotine dependence, cigarettes, uncomplicated; F11.20 Opioid dependence, uncomplicated; I10 Essential (primary) hypertension; G93.41 Metabolic encephalopathy; B95.7 Other staphylococcus as the cause of diseases classified elsewhere; L02.612 Cutaneous abscess of left foot; L03.032 Cellulitis of left toe; D69.6 Thrombocytopenia, unspecified; M62.82 Rhabdomyolysis; J96.01 Acute respiratory failure with hypoxia; Z87.898 Personal history of other specified conditions; N17.9 Acute kidney failure, unspecified; F32.9 Major depressive disorder, single episode, unspecified; D70.9 Neutropenia, unspecified; I51.7 Cardiomegaly; M54.30 Sciatica, unspecified side; B95.4 Other streptococcus as the cause of diseases classified elsewhere; R74.0 Nonspecific elevation of levels of transaminase and lactic acid dehydrogenase [LDH]; M86.9 Osteomyelitis, unspecified
CPT/HCPCS: 36415; 70450-TC; 71010-TC; 71250-TC; 73630-TC-LT; 73718-LT; 74176-TC; 80048; 80053; 80307; 81003; 81015; 82140; 82550; 82553; 82803; 83605; 83615; 83735; 84484; 85025; 85027; 85610; 85651; 85730; 86140; 86850; 86900; 86901; 87040; 87070; 87086; 87186; 87205; 87254; 87804; 87899; 88304-TC; 93005; 93010; 93306-TC; 93312; 93325; 93970-TC; 94760; 99284-25; G0480; J1644

== ENCOUNTER 2018-11-21 12:40 | Inpatient (IN) | payer OTHER ==
--- NOTE | 2018-11-21 14:45 | PDOC ---
History of Present Illness - General Chief Complaint: Wound Stated Complaint: INFECTION LT TOE Time Seen by Provider: 11/21/18 14:39 - History of Present Illness Initial Comments: 58yo M with PMH of HIV (per chart review, CD4 count of 617 on 11/06/18), osteomyelitis s/p debridement in 2017, HTN, depression, heroin abuse (on methadone), anxiety, sciatica, HCV sent by the [facility] for evaluation of an ulcer on his left foot, LLE swelling and redness. Patient notes that he had a subjective fever yesterday. He saw his dental prosthetist today for a regular follow-up visit and she instructed him to come to the ER for evaluation of his foot ulcer. The ulcer was present two years ago and also six months ago, though it is unclear what kind of intervention he received. Not on antibiotics. Patient reports urinary frequency for the past one or two weeks, but no dysuria or hematuria. Not on anticoagulants. No chest pain or shortness of breath. PCP: Dr. Jasmine Parish Biofuels Engineering Manager: Dr. Reed Pain managment specialist: Dr. Holland (spelling?) Past History - Past Medical History Allergies/Adverse Reactions: Allergies Allergy/AdvReac Type Severity Reaction Status Date / Time Penicillins AdvReac Severe Elevated Verified 11/21/18 12:50 Liver Enzymes Home Medications: Ambulatory Orders Methadone [Dolophine -] 65 mg PO DAILY@0600 MDD 1 07/05/17 Acetaminophen [Tylenol .Regular Strength -] 650 mg PO DAILY PRN #45 tablet 02/26 Cane 1 each ASDIR #1 each 02/26/18 Ergocalciferol (Vitamin D2) [Vitamin D2] 50,000 unit PO Q7D #4 capsule 06/11/18 Amlodipine Besylate [Norvasc -] 5 mg PO DAILY #30 tablet 11/06/18 Emtricitab/Rilpiviri/Tenof Ala [Odefsey Tablet] 1 each PO DAILY #30 tablet 11/06 Multivitamins [Multivit ([facility] Formulary)] 1 tab PO DAILY #30 tab 11/06/18 Anemia: No (thrombocytopenia) Asthma: No Cancer: No Cardiac Disorders: No CVA: No COPD: No CHF: No Dementia: No Diabetes: No GI Disorders: No Disorders: No HTN: Yes Hypercholesterolemia: No Liver Disease: Yes (cirrhosis) Psychiatric Problems: Yes (multiple drug abuse.) Seizures: No Thyroid Disease: No - Surgical History Abdominal Surgery: No Appendectomy: No Cardiac Surgery: No Cholecystectomy: Yes Lung Surgery: No Neurologic Surgery: No Orthopedic Surgery: No - Suicide/Smoking/Psychosocial Hx Smoking History: Current some day smoker Have you smoked in the past 12 months: Yes Number of Cigarettes Smoked Daily: 5 Cigars Per Day: 0 Information on smoking cessation initiated: No 'Breaking Loose' booklet given: 07/17/13 Hx Alcohol Use: Yes (none for one year) Drug/Substance Use Hx: Yes (none since 1997) Substance Use Type: Cocaine, Opiates Hx Substance Use Treatment: Yes (rehab, methadone maintenance) Review of Systems - Review of Systems Comments:: Constitutional: +fever, no chills HEENT: no throat pain, no dysphagia Cardiovascular: no chest pain, no palpitations Respiratory: no cough, no shortness of breath Gastrointestinal: no abdominal pain, no nausea Genitourinary: no dysuria, +frequency Musculoskeletal: no myalgia, no arthralgia Skin: +ulcer, no itching Neurologic: no headache, no weakness *Physical Exam - Vital Signs Last Vital Signs Temp Pulse Resp BP Pulse Ox 98.7 F 76 17 117/61 95 11/21/18 12:51 11/21/18 12:51 11/21/18 12:51 11/21/18 12:51 11/21/18 12:51 - Physical Exam Comments: General: Awake, alert, and fully oriented, in no acute distress Head: No signs of trauma Eyes: EOMI, sclera anicteric ENT: Moist mucus membranes Neck: Normal ROM, supple Lungs: Lungs clear, Normal breath sounds Cardio: Regular rhythm, S1 and S2 present Abdomen: Soft, nontender Extremities: Normal range of motion, Distal pulses present, Left leg larger than right leg with edema and erythema, no calf tenderness bilaterally SKIN: Warm, Dry, normal turgor L. foot: 1.5x1.5 cm lesion on tip of big toe with central necrosis and ulceration expressive of serosanguinous fluid Neurologic: Cranial nerves II through XII grossly intact. Normal speech ED Treatment Course - LABORATORY CBC & Chemistry Diagram: 11/21/18 15:37 11/21/18 15:37 Medical Decision Making - Medical Decision Making 58yo M with PMH of HIV (per chart review, CD4 count of 617 on 11/06/18), osteomyelitis s/p debridement in 2017, HTN, depression, heroin abuse (on methadone), anxiety, sciatica, HCV sent by the [facility] for evaluation of an ulcer on his left foot, LLE swelling and redness. DDX including but not limited to osteomyelitis, nonhealing ulcer, DVT, lymphedema, vascular insufficiency Labs including blood cultures, wound culture Xray of L. Foot Duplex of LLE 11/21/18 15:39 Plan to consult [place] lead systems analyst will put a page out to Dr. Mcbride 11/21/18 16:[address] Mcbride. Consult placed. Vancomycin order placed. He will see the patient and place an order for the second antibiotic. Talked about placing a probe in ulceration if possible to see if it extends deep. If so, plan to order MRI 11/21/18 16:42 Unable to probe bottom of ulcer as the opening is too narrow CBC WBC 5.9 K/mm3 (4.0-10.0) 11/21/18 15:37 RBC 4.23 M/mm3 (4.00-5.60) 11/21/18 15:37 Hgb 13.1 GM/dL (11.7-16.9) 11/21/18 15:37 Hct 39.6 % (35.4-49) 11/21/18 15:37 MCV 93.4 fl (80-96) 11/21/18 15:37 MCH 30.8 pg (25.7-33.7) 11/21/18 15:37 MCHC 33.0 g/dl (32.0-35.9) 11/21/18 15:37 RDW 14.0 % (11.9-15.9) 11/21/18 15:37 Plt Count 90 K/MM3 (134-434) L 11/21/18 15:37 MPV 8.2 fl (7.5-11.1) 11/21/18 15:37 Absolute Neuts (auto) 4.0 K/mm3 (1.5-8.0) 11/21/18 15:37 Neutrophils % 68.0 % (42.8-82.8) D 11/21/18 15:37 Lymphocytes % 19.8 % (8-40) D 11/21/18 15:37 Monocytes % 11.6 % (3.8-10.2) H 11/21/18 15:37 Eosinophils % 0.4 % (0-4.5) D 11/21/18 15:37 Basophils % 0.2 % (0-2.0) 11/21/18 15:37 Nucleated RBC % 0 % (0-0) 11/21/18 15:37 Platelet Estimate Decreased 11/21/18 15:37 Platelet Comment No clumping noted 11/21/18 15:37 ESR 36 mm/hr (0-20) H 11/21/18 15:37 No anemia or leukocytosis ESR elevated CMP Sodium 137 mmol/L (136-145) 11/21/18 15:37 Potassium 4.2 mmol/L (3.5-5.1) 11/21/18 15:37 Chloride 102 mmol/L (98-107) 11/21/18 15:37 Carbon Dioxide 33 mmol/L (21-32) H 11/21/18 15:37 Anion Gap 2 MMOL/L (8-16) L 11/21/18 15:37 BUN 11.8 mg/dL (7-18) 11/21/18 15:37 Creatinine 0.9 mg/dL (0.55-1.3) 11/21/18 15:37 Est GFR (CKD-EPI)AfAm 107.22 11/21/18 15:37 Est GFR (CKD-EPI)NonAf 92.51 11/21/18 15:37 Random Glucose 94 mg/dL (74-106) 11/21/18 15:37 Calcium 8.9 mg/dL (8.5-10.1) 11/21/18 15:37 Total Bilirubin 1.1 mg/dL (0.2-1) H 11/21/18 15:37 AST 79 U/L (15-37) H 11/21/18 15:37 ALT 26 U/L (13-61) 11/21/18 15:37 Alkaline Phosphatase 70 U/L (45-117) 11/21/18 15:37 C-Reactive Protein 9.3 MG/DL (0.00-0.3) H 11/21/18 15:37 Total Protein 8.0 g/dl (6.4-8.2) 11/21/18 15:37 Albumin 3.9 g/dl (3.4-5.0) 11/21/18 15:37 Electolytes unremarkable CRP elevated Unable to probe deepest point of ulcer as the opening is too narrow US: No evidence of DVT per radiology 11/21/18 17:40 EKG: rate 59, QTc 461, sinus with 1st degree AV block CXR without acute pathology, my impression 11/21/18 17:[address] Lam who accepted patient for admission under the night attending. 11/21/18 18:35 L. Foot Xray: No radiographic evidence of acute osteomyelitis *DC/Admit/Observation/Transfer Diagnosis at time of Disposition: Foot ulcer, left Qualifiers: Non-pressure ulcer stage: with necrosis of muscle Qualified Code(s): L97.523 - Non-pressure chronic ulcer of other part of left foot with necrosis of muscle - Discharge Dispostion Condition at time of disposition: Guarded Decision to Admit order: Yes - Referrals - Patient Instructions - Post Discharge Activity
[2018-11-21 16:11] LABS: INR 1.15 (0.83-1.09); PROTHROMBIN TIME (PATIENT) 13.6 SEC (9.7-13.0)
[2018-11-21 16:13] LABS: ACTIVATED PTT 36.6 SECONDS (25.2-36.5)
[2018-11-21 16:15] LABS: BASO % 0.2 % (0-2.0); EOS % 0.4 % (0-4.5); HEMATOCRIT 39.6 % (35.4-49); HEMOGLOBIN 13.1 GM/dL (11.7-16.9); LYMPH % 19.8 % (8-40); MCH 30.8 pg (25.7-33.7); MEAN CELL VOLUME 93.4 fl (80-96); MEAN PLT VOLUME 8.2 fl (7.5-11.1); MONO % 11.6 % (3.8-10.2); RBC 4.23 M/mm3 (4.00-5.60); WHITE BLOOD COUNT 5.9 K/mm3 (4.0-10.0)
[2018-11-21 16:24] LABS: ALBUMIN 3.9 g/dl (3.4-5.0); BILIRUBIN,TOTAL 1.1 mg/dL (0.2-1); BLOOD UREA NITROGEN 11.8 mg/dL (7-18); CALCIUM 8.9 mg/dL (8.5-10.1); CREATININE 0.9 mg/dL (0.55-1.3); POTASSIUM 4.2 mmol/L (3.5-5.1)
[2018-11-21] MEDS ORDERED: VANCOMYCIN 1,000 MG in DEXTROSE 5%-WATER - 250 ML IVPB ONE (16:40)
--- NOTE | 2018-11-21 17:16 | PDOC ---
Documentation entered by Carole Delgado SCRIBE, acting as scribe for Emi Gunn MD. Emi Gunn MD: This documentation has been prepared by the Sandy portillo Sammi, SCRIBE, under my direction and personally reviewed by me in its entirety. I confirm that the documentation accurately reflects all work, treatment, procedures, and medical decision making performed by me. Attending Attestation - Resident Resident Name: Lana Dennis - ED Attending Attestation I have performed the following: I have examined & evaluated the patient, The case was reviewed & discussed with the resident, I agree w/resident's findings & plan, Exceptions are as noted - HPI HPI: 11/21/18 16:57 The patient is a 58 year old male, with a significant PMH of HIV (per chart review, CD4 count of 617 on 11/06/18), HTN, depression, heroin abuse (on methadone), osteomyelitis, anxiety, sciatica, HCV, who presents to the emergency department from [facility] for evaluation of a left foot ulcer. The patient has been taking bactrim prescribed by his cash office worker for an infection of the left foot ulcer. He was evaluated at the [facility] today, where they expressed concern that the ulcer is not getting better, and was advised to come to the ED for IV antibiotics. Denies chest pain, SOB, fevers, chills, headache, focal weakness/numbness, abd pain, N/V/D. - Physicial Exam PE: 11/21/18 17:13 agree with resident exam - Medical Decision Making 11/21/18 17:13 58yo M hx HIV presents to the ED with infected foot ulcer failing outpt bactrim abx Pt sent to ED for IV abx Pt has pencillin, pt has been given vancomycin. For gram neg coverage, case discussed with Dr. Mcbride who will order abx accordingly Anticipate admission
[2018-11-21 17:24] LABS: PLATELET COUNT 90 K/MM3 (134-434); PLATELET ESTIMATE DECREASED
[2018-11-21] MEDS ORDERED: VANCOMYCIN 1 GRAM (PRE-DOCKED) 1,000 MG/250 ML BAG IVPB ONE (17:40)
[2018-11-21 18:28] LABS: EPI CELLS 0.1 /HPF (0-5/HPF); HYALINE CASTS 0 /lpf (0-8); URINE APPEARANCE CLEAR; URINE BACTERIA 2.9 /hpf (NEGATIVE); URINE BILIRUBIN NEGATIVE (NEGATIVE); URINE COLOR YELLOW; URINE GLUCOSE (UA) NEGATIVE (NEGATIVE); URINE KETONE NEGATIVE (NEGATIVE); URINE LEUK ESTERASE NEGATIVE (NEGATIVE); URINE NITRITE NEGATIVE (NEGATIVE); URINE PROTEIN NEGATIVE (NEGATIVE); URINE RBC 10 /hpf (0-4); URINE UROBILINOGEN 4.0 E.U/dl mg/dL (0.2-1.0); URINE WBC 0 /hpf (0-5)
--- NOTE | 2018-11-21 20:27 | HP ---
CHIEF COMPLAINT: LLE swelling/erythema PCP: HISTORY OF PRESENT ILLNESS: 58M w/ PMH of HTN, HIV, h/o heroin, methadone usage, sciatica, h/p HCV s/p tx, cirrhosis, thrombocytopenia presents to [facility] with complaint of LLE swelling x2d and erythema x1d w/a fever. Denies calf pain. Denies h/o OM, LE swelling, orthopnea, h/o HF. Had outpatient hallux wound debridement 7wks prior. He states that the post-procedure course was uncomplicated. States that he had an echo done within the last year that was normal. Denies h/o of paracentesis, jaundice. States that he is compliant with his HIV medications, believes that his CD4 ~896. Dr Jasmine Parish is his ID doctor. ER course was notable for: (1) LE duplex - neg for DVT (2) XR Left foot - neg for OM (3) CXR - cardiomegaly (4) BCX, wound cx, UCX - pending (5) vanco Recent Travel: PAST MEDICAL HISTORY: HTN, HIV, h/o heroin, methadone usage, sciatica, h/p HCV s/p tx, cirrhosis, thrombocytopenia PAST SURGICAL HISTORY: callus debridement of Left Hallux Social History: Smokin-6cig/daily Alcohol: denies Drugs: h/o heroin, cocaine Family History: Allergies Penicillins Adverse Reaction (Severe, Verified 11/21/18 12:50) Elevated Liver Enzymes Note: Hospitalization ( October 2016) for sepsis (wound infection) PCN discontinued due to elevated LFTs HOME MEDICATIONS: Home Medications Medication Instructions Recorded Methadone [Dolophine -] 65 mg PO DAILY@0600 MDD 1 07/05/17 Acetaminophen [Tylenol .Regular 650 mg PO DAILY PRN #45 tablet 02/26/18 Strength -] Cane 1 each MC ASDIR #1 each 02/26/18 Ergocalciferol (Vitamin D2) 50,000 unit PO Q7D #4 capsule 06/11/18 [Vitamin D2] Amlodipine Besylate [Norvasc -] 5 mg PO DAILY #30 tablet 11/06/18 Emtricitab/Rilpiviri/Tenof Ala 1 each PO DAILY #30 tablet 11/06/18 [Odefsey Tablet] Multivitamins [Multivit ([facility] 1 tab PO DAILY #30 tab 11/06/18 Formulary)] REVIEW OF SYSTEMS CONSTITUTIONAL: fevers Absent: chills, diaphoresis, generalized weakness, malaise, loss of appetite, weight change HEENT: Absent: difficulty swallowing, visual changes CARDIOVASCULAR: Absent: chest pain, palpitations, irregular heart rate, peripheral edema RESPIRATORY: Absent: cough, shortness of breath, dyspnea with exertion, orthopnea, wheezing GASTROINTESTINAL: Absent: abdominal pain, abdominal distension, nausea, vomiting, diarrhea, constipation, melena, hematochezia GENITOURINARY: Absent: dysuria, frequency, urgency, hesitancy, hematuria, flank pain, genital pain MUSCULOSKELETAL: chronic back pain Absent: myalgia, arthralgia, joint swelling, neck pain SKIN: Absent: rash, itching, pallor HEMATOLOGIC/IMMUNOLOGIC: Absent: easy bleeding, easy bruising, lymphadenopathy, frequent infections ENDOCRINE: Absent: unexplained weight gain, unexplained weight loss NEUROLOGIC: Absent: headache, focal weakness or paresthesias, dizziness, unsteady gait, seizure, mental status changes, bladder or bowel incontinence PHYSICAL EXAMINATION Vital Signs - 24 hr 11/21/18 12:51 Temperature 98.7 F Pulse Rate 76 Respiratory 17 Rate Blood Pressure 117/61 O2 Sat by Pulse 95 Oximetry (%) GENERAL: Awake, alert, and fully oriented, in no acute distress. HEAD: Normal with no signs of trauma. Mild temporal wasting EYES: extraocular movements intact, sclera anicteric, conjunctiva clear. EARS, NOSE, THROAT: Ears normal, nares patent. Moist mucous membranes. NECK: Normal range of motion, supple without lymphadenopathy, JVD, or masses. LUNGS: Breath sounds equal, clear to auscultation bilaterally. No wheezes, and no crackles. No accessory muscle use. HEART: Regular rate and rhythm, normal S1 and S2 without murmur, rub or gallop. ABDOMEN: Soft, nontender, not distended, no guarding, no rebound, no masses. MUSCULOSKELETAL: Normal range of motion at all joints. No bony deformities or tenderness. No CVA tenderness. UPPER EXTREMITIES: 2+ pulses, warm, well-perfused. No cyanosis. Yes clubbing. No peripheral edema. LOWER EXTREMITIES: 2+ pulses, warm, well-perfused. No calf tenderness. Left Leg w/ 1+ pitting edema. Left hallux with thickened callus, distal end with ~1cm open wound with no active bleeding or exudate NEUROLOGICAL: Normal speech. PSYCHIATRIC: Cooperative. Good eye contact. Appropriate mood and affect. SKIN: Warm, dry, normal turgor, no rashes or lesions noted, normal capillary refill. Laboratory Results - last 24 hr 11/21/18 11/21/18 11/21/18 15:37 15:37 15:37 WBC 5.9 RBC 4.23 Hgb 13.1 Hct 39.6 MCV 93.4 MCH 30.8 MCHC 33.0 RDW 14.0 Plt Count 90 L MPV 8.2 Absolute Neuts (auto) 4.0 Neutrophils % 68.0 D Lymphocytes % 19.8 D Monocytes % 11.6 H Eosinophils % 0.4 D Basophils % 0.2 Nucleated RBC % 0 Platelet Estimate Decreased Platelet Comment No clumping noted ESR PT with INR 13.60 H INR 1.15 H PTT (Actin FS) 36.6 H Sodium 137 Potassium 4.2 Chloride 102 Carbon Dioxide 33 H Anion Gap 2 L BUN 11.8 Creatinine 0.9 Est GFR (CKD-EPI)AfAm 107.22 Est GFR (CKD-EPI)NonAf 92.51 Random Glucose 94 Calcium 8.9 Total Bilirubin 1.1 H AST 79 H ALT 26 Alkaline Phosphatase 70 C-Reactive Protein Total Protein 8.0 Albumin 3.9 Urine Color Urine Appearance Urine pH Ur Specific [place] Urine Protein Urine Glucose (UA) Urine Ketones Urine Blood Urine Nitrite Urine Bilirubin Urine Urobilinogen Ur Leukocyte Esterase Urine WBC (Auto) Urine RBC (Auto) Urine Casts (Auto) U Epithel Cells (Auto) Urine Bacteria (Auto) Blood Type Antibody Screen 11/21/18 11/21/18 11/21/18 15:37 15:37 15:37 WBC RBC Hgb Hct MCV MCH MCHC RDW Plt Count MPV Absolute Neuts (auto) Neutrophils % Lymphocytes % Monocytes % Eosinophils % Basophils % Nucleated RBC % Platelet Estimate Platelet Comment ESR 36 H PT with INR INR PTT (Actin FS) Sodium Potassium Chloride Carbon Dioxide Anion Gap BUN Creatinine Est GFR (CKD-EPI)AfAm Est GFR (CKD-EPI)NonAf Random Glucose Calcium Total Bilirubin AST ALT Alkaline Phosphatase C-Reactive Protein 9.3 H Total Protein Albumin Urine Color Urine Appearance Urine pH Ur Specific [place] Urine Protein Urine Glucose (UA) Urine Ketones Urine Blood Urine Nitrite Urine Bilirubin Urine Urobilinogen Ur Leukocyte Esterase Urine WBC (Auto) Urine RBC (Auto) Urine Casts (Auto) U Epithel Cells (Auto) Urine Bacteria (Auto) Blood Type B POSITIVE Antibody Screen Negative 11/21/18 15:41 WBC RBC Hgb Hct MCV MCH MCHC RDW Plt Count MPV Absolute Neuts (auto) Neutrophils % Lymphocytes % Monocytes % Eosinophils % Basophils % Nucleated RBC % Platelet Estimate Platelet Comment ESR PT with INR INR PTT (Actin FS) Sodium Potassium Chloride Carbon Dioxide Anion Gap BUN Creatinine Est GFR (CKD-EPI)AfAm Est GFR (CKD-EPI)NonAf Random Glucose Calcium Total Bilirubin AST ALT Alkaline Phosphatase C-Reactive Protein Total Protein Albumin Urine Color Yellow Urine Appearance Clear Urine pH 6.0 Ur Specific [place] 1.016 Urine Protein Negative Urine Glucose (UA) Negative Urine Ketones Negative Urine Blood 1+ H Urine Nitrite Negative Urine Bilirubin Negative Urine Urobilinogen 4.0 e.u/dl Ur Leukocyte Esterase Negative Urine WBC (Auto) 0 Urine RBC (Auto) 10 Urine Casts (Auto) 0 U Epithel Cells (Auto) 0.1 Urine Bacteria (Auto) 2.9 Blood Type Antibody Screen ASSESSMENT/PLAN: 58M w/ PMH of HTN, HIV, h/o heroin, methadone usage, sciatica, h/p HCV s/p tx, cirrhosis, thrombocytopenia presents to [facility] with complaint of LLE swelling x2d and erythema x1d w/a fever. Left leg swelling possibly 2/2 to cellulitis, less likely DVT # Left Leg Swelling >XR left foot(11/21): neg OM >LLE Duplex(11/21): neg for DVT - cw vancomycin - MRI Left foot to R/o OM - fu LLE arterial duplex to eval for PAD - fu podiatry consult - fu ID consult # HIV - cw home Odefsey(Emtricitab/Rilpiviri/Tenof) - fu CD4 cound # Cirrhosis - MELD 10 # chronic pain 2/2 sciata - possible restart methadone Lakhwinder Johnson DO PGY-1 Medicine, PM-Float [id number] 11/21/18 Visit type - Emergency Visit Emergency Visit: Yes ED Registration Date: 11/21/18 Care time: The patient presented to the Emergency Department on the above date and was hospitalized for further evaluation of their emergent condition. - New Patient This patient is new to me today: Yes Date on this admission: 11/22/18 - Critical Care Critical Care patient: No ATTENDING PHYSICIAN STATEMENT I saw and evaluated the patient. I reviewed the resident's note and discussed the case with the resident. I agree with the resident's findings and plan as documented. SUBJECTIVE: OBJECTIVE: ASSESSMENT AND PLAN:
--- NOTE | 2018-11-21 21:43 | PN ---
Teaching Attending Note Name of Resident: Lakhwinder Stuart ATTENDING PHYSICIAN STATEMENT I saw and evaluated the patient. I reviewed the resident's note and discussed the case with the resident. I agree with the resident's findings and plan as documented. SUBJECTIVE: Seen and examined; please refer to resident note for HPI/PMH/PSH/FH/SH/ROS. Patient presents with L-foot (great toe) wound with pain x1 week; he has history in 2017 of suspected OM of the same tie with S. equinus bacteremia s/p debridement/I&D with bone cx growing coag negative staph. OBJECTIVE: VS, labs, imaging reviewed NAD, AAO, resting comfortably in bed NC AT EOMI PERRLA RRR s1/2 no mgr Lungs CTAB, w/ sym exp Foot wound noted; pale L-hallux with some purulance and 2x1cm eschar on tip of toe; surrounding cellulitic changes without crepitus Normal mood, appropriate behavior EKG, imaging studies independently interpreted-XR with soft tissue swelling. Vascular study reviewed Old consultations reviewed; prior culture results reviwed (blood, bone cx 10/2016 ) MRI pending ASSESSMENT/PLAN: Patient presents with L-great toe wound #Foot Wound-cellulitis r/o osteomyelitis #Hx HIV on HAART #Hx Heroin Abuse on Methadone #Hx HCV #Cirrhosis (MELD 11) #Hx thrombocytopenia ER spoke to ID who recommended vancomycin so will continue and add dose of zosyn given chance of polymicrobial contamination; we will follow CBC/ESR/CRP and followup arterial dopplers. Defer further abx to their service; prior cx results noted. Followup MRI-XR reviewed but given appearance of toe wound and prior suspected OM at the site inclined to further investigate soft tissue/ bone. Continue home HAART and methadone. SCDs for DVT px given thrombocytopenia. He should followup OP for his cirrhosis-no acute issues. Verify his last CD4 count with OP provider and if not UTD can repeat here with VL. DVT px: SCDs Full Code
[2018-11-22] MEDS: traZODone HCL 50 MG TABLET (FP) PO SCH ×2 (01:48→21:45)
[2018-11-22] MEDS: GABAPENTIN 300 MG CAPSULE (FP) PO SCH ×3 (01:48→21:45)
[2018-11-22] MEDS ORDERED: VANCOMYCIN HCL 1,500 MG in DEXTROSE 5%-WATER - 500 ML IVPB SCH (06:00)
[2018-11-22] MEDS ORDERED: METHADONE 40 MG, METHADONE 20 MG, METHADONE 5 MG PO ONE ×2 (06:00→16:00)
[2018-11-22 07:55] LABS: HEMOGLOBIN 12.3 GM/dL (11.7-16.9); MCH 30.9 pg (25.7-33.7); MCHC 33.3 g/dl (32.0-35.9); MEAN CELL VOLUME 92.6 fl (80-96); MEAN PLT VOLUME 8.5 fl (7.5-11.1); PLATELET COUNT 95 K/MM3 (134-434); RBC 3.99 M/mm3 (4.00-5.60); RDW 14.2 % (11.9-15.9); WHITE BLOOD COUNT 4.5 K/mm3 (4.0-10.0)
[2018-11-22 08:45] LABS: BLOOD UREA NITROGEN 15.2 mg/dL (7-18); CALCIUM 8.7 mg/dL (8.5-10.1); CREATININE 0.9 mg/dL (0.55-1.3); MAGNESIUM 2.4 mg/dL (1.8-2.4); POTASSIUM 3.6 mmol/L (3.5-5.1)
[2018-11-22] MEDS: amLODIPine BESYLATE 5 MG TABLET (FP) PO SCH (09:52)
[2018-11-22] MEDS ORDERED: PT OWN MED DRAWER 7, Y5N ONE (11:28)
--- NOTE | 2018-11-22 11:31 | CON.ID ---
Consult Consult Specialty:: infectious diseases Referred by:: Reason for Consultation:: left foot non healing ulcer - History of Present Illness Chief Complaint: left foot great toe non healing ulcer History of Present Illness: 58yo M with PMH of HIV , osteomyelitis s/p debridement in 2017, HTN, depression , heroin abuse (on methadone), anxiety, sciatica, HCV sent by the [facility] for evaluation of an ulcer on his left foot, LLE swelling and redness. Patient notes that he had a subjective fever yesterday. He saw his terrazzo mechanic today for a regular follow-up visit and she instructed him to come to the ER for evaluation of his foot ulcer. The ulcer was present two years ago and also six months ago, though it is unclear what kind of intervention he received. Not on antibiotics. Patient reports urinary frequency for the past one or two weeks, but no dysuria or hematuria. Not on anticoagulants. No chest pain or shortness of breath. - History Source History Provided By: Patient Limitations to Obtaining History: No Limitations - Past Medical History Cardio/Vascular: Yes: HTN Hepatobiliary: Yes: Hepatitis C Infectious Disease: Yes: HIV Psych: Yes: Addictions Dermatology: Yes: Cellulitis - Alcohol/Substance Use Hx Alcohol Use: Yes (none for one year) History of Substance Use: reports: Heroin - Smoking History Smoking history: Current some day smoker Have you smoked in the past 12 months: Yes Aproximately how many cigarettes per day: 5 - Social History ADL: Independent Home Medications - Allergies Allergies/Adverse Reactions: Allergies Allergy/AdvReac Type Severity Reaction Status Date / Time Penicillins AdvReac Severe Elevated Verified 11/21/18 12:50 Liver Enzymes - Home Medications Home Medications: Ambulatory Orders Methadone [Dolophine -] 75 mg PO DAILY@0600 MDD 1 07/05/17 Acetaminophen [Tylenol .Regular Strength -] 650 mg PO DAILY PRN #45 tablet 02/26 Cane 1 each MC ASDIR #1 each 02/26/18 Ergocalciferol (Vitamin D2) [Vitamin D2] 50,000 unit PO Q7D #4 capsule 06/11/18 Amlodipine Besylate [Norvasc -] 5 mg PO DAILY #30 tablet 11/06/18 Emtricitab/Rilpiviri/Tenof Ala [Odefsey Tablet] 1 each PO DAILY #30 tablet 11/06 Multivitamins [Multivit ([facility] Formulary)] 1 tab PO DAILY #30 tab 11/06/18 Bacitracin - [Bacitracin Topical Ointment -] 1 applic TP BID 11/21/18 Docusate Sodium [Colace] 100 mg PO TID PRN 11/21/18 Fluticasone Prop 0.05% Nasal [Flonase -] 1 - 2 spray NS DAILY 11/21/18 Gabapentin 300 mg PO BID 11/21/18 traZODone HCL [Trazodone HCl] 100 mg PO HS 11/21/18 Family Disease History - Family Disease History Family Disease History: CA: Mother (, etoh), Sister (two living, one from cancer), Other: Father ('I hated him - he left us'), Mother, Brother ( five - living - young brother cancer, etoh), Sister, Son (two - healthy), Daughter Review of Systems - Review of Systems Constitutional: reports: No Symptoms Eyes: reports: No Symptoms HENT: reports: No Symptoms Neck: reports: No Symptoms Cardiovascular: reports: No Symptoms Respiratory: reports: No Symptoms Gastrointestinal: reports: No Symptoms Genitourinary: reports: No Symptoms Musculoskeletal: reports: No Symptoms Integumentary: reports: No Symptoms Neurological: reports: No Symptoms Endocrine: reports: No Symptoms Hematology/Lymphatic: reports: No Symptoms Psychiatric: reports: No Symptoms Physical Exam Vital Signs: Vital Signs Temperature 97.6 F 11/22/18 05:28 Pulse Rate 55 L 11/22/18 05:28 Respiratory Rate 18 11/22/18 05:28 Blood Pressure 129/74 11/22/18 05:28 O2 Sat by Pulse Oximetry (%) 96 11/21/18 21:00 Constitutional: Yes: Well Nourished, No Distress, Calm Cardiovascular: Yes: Regular Rate and Rhythm Respiratory: Yes: Regular, CTA Bilaterally Gastrointestinal: Yes: Normal Bowel Sounds, Soft Musculoskeletal: Yes: WNL Extremities: Yes: Other Integumentary: Yes: Erythema, Other (wound) Wound/Incision: Yes: Open to air, Draining, Other (ulcer on the plantar surface of the left great toe) Neurological: Yes: Alert, Oriented Psychiatric: Yes: Alert, Oriented Labs: CBC, BMP 11/22/18 06:44 07/11/19 06:44 Imaging - Results Chest X-ray: Report Reviewed, Image Reviewed X-ray: Report Reviewed, Image Reviewed Assessment/Plan 58M w/ PMH of HTN, HIV, h/o heroin, methadone usage, sciatica, h/p HCV s/p tx, cirrhosis, thrombocytopenia presents to [facility] with complaint of LLE swelling x2d and erythema x1d w/a fever. Left leg swelling possibly 2/2 to cellulitis, Left Leg Swelling r/o osteo of the toe HIV Cirrhosis patient mentions hat he has been taking meds regularly and his cd4 count was good plan mri of the foot continue medications check cd4 count marjorie start patient on cefazolin wound care await for all cx reports
[2018-11-22] MEDS ORDERED: PIPERACILLIN/TAZOB 3.375 GM 3.375 GM in DEXTROSE 5%-WATER - 50 ML IVPB SCH (12:30)
[2018-11-22] MEDS ORDERED: DOCUSATE SODIUM 100 MG CAPSULE (FP) PO PRN (13:22)
[2018-11-22] MEDS ORDERED: [UNRECOGNIZED DRUG - OTHER] MC SCH (13:30)
[2018-11-22] MEDS ORDERED: ERGOCALCIFEROL (VIT D2) 50,000 UNIT (1.25 MG) CAPSULE PO SCH (13:30)
--- NOTE | 2018-11-22 13:34 | PN ---
Teaching Attending Note Name of Resident: Courtney Mosqueda ATTENDING PHYSICIAN STATEMENT I saw and evaluated the patient. I reviewed the resident's note and discussed the case with the resident. I agree with the resident's findings and plan as documented. SUBJECTIVE:continues to have foot pain. denies any trauma to the foot. denies Cp , SOB, fever, chills, N/V/C/D OBJECTIVE: Last Vital Signs Temp Pulse Resp BP Pulse Ox 97.6 F 55 L 18 129/74 96 11/22/18 05:28 11/22/18 05:28 11/22/18 05:28 11/22/18 05:28 11/22/18 09:00 General NAD CV S1 S2 RRR no murmur/rub/gallop Lungs CTA B/L no wheezing/rales/rhonchi extremities L hallux with subcentimeter opening at tip of toe with active serous drainage, probes deep unable to assess if to bone. trace pitting edema up to ankle no erythema no warmth. +DP pulse ASSESSMENT AND PLAN: 58yo M with pMH HIV on HARRT, remote heroin use on methadone, cirhosis 2/2 HCV, thrombocytopenia and previous OM of the L hallux presented to er with draining foot ulcer 1. L hallux cellulitis with suspected OM- elevated ESR/CRP. foot XR negative. will obtain MRI. has hx of polymicrobial infection with PM and medically treated. receoved vanco in the Er and now switched to cefazolin. will consult podiatry (his director staffing doesnot have privileges here). ID onboard. F/u cx 2. Thrombocytopenia- liekly due to cirrhosis. monitor counts. no signs of bleeding 3. HIV on HARRT- reports last CD4 was 800s. cont 4. heroin abuse on methadone- confirm dose and re-start 5. Cirrohsis due to HCV- s/p treatment. 6. DVT ppx- will place SCD. avoid pharmaceutical anticoagulation due to thrombocytopenia
[2018-11-22] MEDS ORDERED: ACETAMINOPHEN 325 MG TABLET (FP) PO PRN (13:48)
[2018-11-22] MEDS ORDERED: DEXTROSE 5%-WATER - 50 ML IVPB ONE ×2 (13:57→17:47)
[2018-11-22] MEDS ORDERED: ceFAZolin SODIUM 1 GM VIAL ONE ×2 (13:57→17:47)
[2018-11-22] MEDS: CEFAZOLIN 1 GM in DEXTROSE 5%-WATER - 50 ML IVPB SCH ×2 (13:58→18:17)
[2018-11-22] MEDS ORDERED: METHADONE 40 MG, METHADONE 30 MG, METHADONE 5 MG PO SCH (14:00)
[2018-11-22] MEDS ORDERED: METHADONE HCL 10 MG TABLET PO SCH (14:00)
[2018-11-22] MEDS: EMTRICITAB/RILPIVIRI/TENOF ALA (ODEFSEY) TABLET PO SCH (14:25)
[2018-11-22] MEDS ORDERED: METHADONE HCL 10 MG TABLET PO ONE ×2 (14:30→15:19)
[2018-11-22] MEDS: MULTIVITAMINS (DAILY MVI) TABLET (FP) PO SCH (14:31)
[2018-11-22] MEDS: FLUTICASONE PROP 0.05% 16 GM NASAL SPRAY NS SCH (15:01)
--- NOTE | 2018-11-22 15:19 | PN ---
Physical Exam: SUBJECTIVE: Patient seen and examined at bedside. C/o mild left 1st toe pain. Afebrile. Continuing abx treatment. OBJECTIVE: Vital Signs Period Temp Pulse Resp BP Sys/Forman Pulse Ox Last 24 Hr 97.6 F-99.4 F 55-76 18-18 120-129/73-75 96-99 GENERAL: AOx3. No acute distress. HEENt: No lymphadenopathy noted. No oral sores present. LUNGS: Breath sounds equal, clear to auscultation bilaterally, no wheezes. No incr work of breathing HEART: Regular rate and rhythm, S1, S2 without murmur, rub or gallop. ABDOMEN: Soft, nontender, nondistended, normoactive bowel sounds, no guarding. Cholecystectomy scar present. EXTR: 2+ pulses. 1+ edema LLE edema. Laboratory Results - last 24 hr Active Medications Generic Name Dose Route Start Last Admin Trade Name Freq PRN Reason Stop Dose Admin Acetaminophen 650 mg 11/22/18 13:48 Tylenol - PO Q6H PRN PAIN Amlodipine Besylate 5 mg 11/22/18 10:00 11/22/18 09:52 Norvasc - PO 5 mg DAILY HAN Administration Docusate Sodium 100 mg 11/22/18 13:22 Colace - PO TID PRN CONSTIPATION Ergocalciferol 50,000 unit 11/22/18 13:30 Drisdol - PO Q7D HAN Fluticasone Propionate 2 spray 11/22/18 13:30 Flonase - NS DAILY HAN Gabapentin 300 mg 11/22/18 01:45 11/22/18 09:52 Neurontin - PO 300 mg BID HAN Administration Vancomycin HCl 1,500 mg/ 500 mls @ 250 mls/hr 11/22/18 18:00 Dextrose IVPB Q12H HAN Protocol Cefazolin Sodium 1 gm/ 50 mls @ 100 mls/hr 11/22/18 12:00 11/22/18 13:58 Dextrose IVPB 100 mls/hr Q8H-IV HAN Administration Methadone HCl 40 mg/ Methadone 75 mg 11/23/18 06:00 HCl 30 mg/ Methadone HCl 5 mg PO DAILY@0600 HAN Multivitamins/Minerals/Vitamin C 1 tab 11/22/18 13:30 11/22/18 14:31 Tab-A-Vit - PO 1 tab DAILY HAN Administration Trazodone HCl 100 mg 11/22/18 01:45 11/22/18 01:48 Desyrel - PO 100 mg HS HAN Administration ASSESSMENT/PLAN: 58 y.o. M PMH HTN, HIV, OM in 2017 w/ bacteremia s/p I&D, IVDA (Heroine), methadone usage, sicatica, HCV s/p tx, cirrhosis, thrombocytopenia presenting with LLE swelling found to have OM on MRI. #Osteomyelitis LLE -MRI LLE: Diffuse subcutaneous soft tissue edema of the foot. Irregularity of the soft tissues and soft tissue edema of the distal phalanx of the first toe consistent with an open wound. Bone marrow edema of the distal tuft of the distal phalanx extending to the proximal metaphysis which in the setting of an infectious process is most consistent with osteomyelitis. -C/w Cefazolin 1 g & Vanc 1500mg BID -Wound cx + for LFGNB, Diphtherioid/ corynebacterium, pending organism #2. -Urine & blood cx pending -ID following -Podiatry consulted #HIV -C/w HAART -Last CD4 896 #Cirrhosis -MELD 11 -INR 1.15 -Trend LFTs #Chronic pain d/t sciatica -On methadone 75 #DVT PPX -SCDs (d/t thrombocytopenia) #Dispo Home #FULL CODE Visit type - Emergency Visit Emergency Visit: No - New Patient This patient is new to me today: No - Critical Care Critical Care patient: No ATTENDING PHYSICIAN STATEMENT I saw and evaluated the patient. I reviewed the resident's note and discussed the case with the resident. I agree with the resident's findings and plan as documented. SUBJECTIVE: OBJECTIVE: ASSESSMENT AND PLAN:
[2018-11-22] MEDS ORDERED: METHADONE HCL 5 MG TABLET ONE (15:52)
[2018-11-22] MEDS ORDERED: METHADONE HCL 10 MG TABLET ONE (15:52)
[2018-11-22] MEDS ORDERED: METHADONE HCL 40 MG DISPERSABLE TABLET ONE (15:53)
--- NOTE | 2018-11-22 17:03 | EKG ---
Test Reason : Blood Pressure : / mmHG Vent. Rate : 059 BPM Atrial Rate : 059 BPM P-R Int : 220 ms QRS Dur : 116 ms QT Int : 466 ms P-R-T Axes : 064 003 031 degrees QTc Int : 461 ms SINUS BRADYCARDIA WITH 1ST DEGREE A-V BLOCK LEFT VENTRICULAR HYPERTROPHY WITH QRS WIDENING NONSPECIFIC T WAVE ABNORMALITY PROLONGED QT ABNORMAL ECG WHEN COMPARED WITH ECG OF 20-OCT-2016 11:57, [place] INTERVAL HAS INCREASED VENT. RATE HAS DECREASED BY 33 BPM Confirmed by JACKSON WHITLEY MD ([id number]) on 11/22/2018 5:03:06 PM Referred By: Confirmed By:JACKSON WHITLEY MD
[2018-11-22] MEDS ORDERED: LIDOCAINE 5% TOPICAL PATCH TP SCH (21:30)
[2018-11-22] MEDS ORDERED: traMADol HCL 50 MG TABLET PO ONE (21:42)
[2018-11-22] MEDS ORDERED: ACETAMINOPHEN WITH CODEINE 300MG/30MG TABLET PO ONE (21:55)
[2018-11-22] MEDS: BACITRACIN 15 GM TUBE TOPICAL OINTMENT TP SCH (22:16)
[2018-11-23] MEDS ORDERED: ceFAZolin SODIUM 1 GM VIAL ONE ×3 (01:38→17:14)
[2018-11-23] MEDS ORDERED: DEXTROSE 5%-WATER - 50 ML IVPB ONE ×3 (01:38→17:14)
[2018-11-23] MEDS: CEFAZOLIN 1 GM in DEXTROSE 5%-WATER - 50 ML IVPB SCH ×3 (02:40→17:19)
[2018-11-23] MEDS ORDERED: METHADONE HCL 10 MG TABLET ONE (05:26)
[2018-11-23] MEDS ORDERED: METHADONE HCL 5 MG TABLET ONE (05:27)
[2018-11-23] MEDS ORDERED: METHADONE HCL 40 MG DISPERSABLE TABLET ONE (05:27)
[2018-11-23] MEDS: METHADONE 40 MG, METHADONE 30 MG, METHADONE 5 MG PO SCH (05:43)
[2018-11-23] MEDS ORDERED: METHADONE HCL 40 MG DISPERSABLE TABLET PO SCH (06:00)
[2018-11-23 06:40] LABS: BASO % 0.7 % (0-2.0); EOS % 4.3 % (0-4.5); HEMATOCRIT 36.5 % (35.4-49); HEMOGLOBIN 12.3 GM/dL (11.7-16.9); LYMPH % 35.5 % (8-40); MCHC 33.7 g/dl (32.0-35.9); MEAN CELL VOLUME 92.1 fl (80-96); MEAN PLT VOLUME 8.1 fl (7.5-11.1); MONO % 16.2 % (3.8-10.2); NEUT % 43.3 % (42.8-82.8); PLATELET COUNT 95 K/MM3 (134-434); RBC 3.96 M/mm3 (4.00-5.60); RDW 13.7 % (11.9-15.9); WHITE BLOOD COUNT 3.3 K/mm3 (4.0-10.0)
[2018-11-23 06:53] LABS: ALBUMIN 3.3 g/dl (3.4-5.0); BILIRUBIN,TOTAL 0.8 mg/dL (0.2-1); BLOOD UREA NITROGEN 16.2 mg/dL (7-18); CALCIUM 8.3 mg/dL (8.5-10.1); MAGNESIUM 2.4 mg/dL (1.8-2.4); PHOSPHOROUS 3.8 mg/dL (2.5-4.9); POTASSIUM 3.6 mmol/L (3.5-5.1); TOT PROT 7.2 g/dl (6.4-8.2)
--- NOTE | 2018-11-23 07:32 | CONSULT ---
Consult - text type - Consultation Consultation Note: 58yo M with PMH of HIV , osteomyelitis s/p debridement in 2017, HTN, depression , heroin abuse (on methadone), anxiety, sciatica, HCV sent by the [facility] for evaluation of an ulcer on his left foot, LLE swelling and redness. Patient states that he had noticed he had a fever for roughly 3 hours and then it went away. Had wound in smae place 2017 and had debridment of the bone but states he does not think he was put on halfway IV abx. States he had been following up with a different pod on d/c. States that he had callous build up and decided to try to shave off and he thinks thats what started the infection. Denies any other pedal complaints. O: Left hallux erythema and edema thoughout the foot, pitting, mild purulent drainage noted from distal aspect of the hallux, probes deep, surrounding hyperkeratotic tissue noted, no maldor, no pain on palpation, neurological sensation diminished; pulses non palpable to the left foot, no hair growth noted throughout the LE. A: osteomyelitis left hallux P: Evaluated and reviewed Will discuss with Dr. Mcbride. MRI reviewed; likely osteo Would likely benefit from distal symes amputation of the hallux Will order karen/pvr prior and can likely plan for amputation early next week if medically stable. Will continue to follow.
[2018-11-23] MEDS ORDERED: LIDOCAINE PATCH REMOVAL MC SCH (09:30)
[2018-11-23] MEDS ORDERED: PT OWN MED DRAWER 7, Y5N ONE (09:46)
--- NOTE | 2018-11-23 09:47 | PN ---
Progress Note, Physician History of Present Illness: stable doing well - Current Medication List Current Medications: Active Medications Acetaminophen (Tylenol -) 650 mg PO Q6H PRN PRN Reason: PAIN Amlodipine Besylate (Norvasc -) 5 mg PO DAILY [facility] Last Admin: 11/22/18 09:52 Dose: 5 mg Bacitracin (Bacitracin -) 1 applic TP BID [facility] Last Admin: 11/22/18 22:16 Dose: 1 applic Docusate Sodium (Colace -) 100 mg PO TID PRN PRN Reason: CONSTIPATION Ergocalciferol (Drisdol -) 50,000 unit PO Q7D [facility] Last Admin: 11/22/18 15:01 Dose: 50,000 unit Fluticasone Propionate (Flonase -) 2 spray NS DAILY [facility] Last Admin: 11/22/18 15:01 Dose: 2 spray Gabapentin (Neurontin -) 300 mg PO BID [facility] Last Admin: 11/22/18 21:45 Dose: 300 mg Vancomycin HCl 1,500 mg/ (Dextrose) 500 mls @ 250 mls/hr IVPB Q12H [facility]; Protocol Cefazolin Sodium 1 gm/ (Dextrose) 50 mls @ 100 mls/hr IVPB Q8H-IV [facility] Last Admin: 11/23/18 02:40 Dose: 100 mls/hr Methadone HCl 40 mg/ Methadone (HCl 30 mg/ Methadone HCl 5 mg) 75 mg PO DAILY@ 0600 [facility] Last Admin: 11/23/18 05:43 Dose: 75 mg Multivitamins/Minerals/Vitamin C (Tab-A-Vit -) 1 tab PO DAILY [facility] Last Admin: 11/22/18 14:31 Dose: 1 tab Trazodone HCl (Desyrel -) 100 mg PO HS [facility] Last Admin: 11/22/18 21:45 Dose: 100 mg - Objective Vital Signs: Vital Signs Temperature 98.1 F 11/23/18 06:00 Pulse Rate 52 L 11/23/18 06:00 Respiratory Rate 20 11/23/18 06:00 Blood Pressure 135/57 L 11/23/18 06:00 O2 Sat by Pulse Oximetry (%) 100 11/22/18 20:41 Constitutional: Yes: No Distress, Calm Cardiovascular: Yes: Regular Rate and Rhythm Respiratory: Yes: Regular, CTA Bilaterally Gastrointestinal: Yes: Normal Bowel Sounds, Soft Musculoskeletal: Yes: WNL Extremities: Yes: Other Wound/Incision: Yes: Open to air Neurological: Yes: Alert, Oriented Psychiatric: Yes: Alert, Oriented Labs: CBC, BMP 11/23/18 05:20 11/23/18 05:20 INR, PTT INR 1.15 (0.83-1.09) H 11/21/18 15:37 Assessment/Plan 58M w/ PMH of HTN, HIV, h/o heroin, methadone usage, sciatica, h/p HCV s/p tx, cirrhosis, thrombocytopenia presents to [facility] with complaint of LLE swelling x2d and erythema x1d w/a fever. Left leg swelling possibly 2/2 to cellulitis, Left Leg Swelling r/o osteo of the toe HIV Cirrhosis plan mri seen osteo of the foot awaiting one organism rest as per the team will need buttermaker helper abx continue current abx
[2018-11-23] MEDS: MULTIVITAMINS (DAILY MVI) TABLET (FP) PO SCH (09:48)
[2018-11-23] MEDS: amLODIPine BESYLATE 5 MG TABLET (FP) PO SCH (09:48)
[2018-11-23] MEDS: GABAPENTIN 300 MG CAPSULE (FP) PO SCH ×2 (09:48→21:47)
[2018-11-23] MEDS: FLUTICASONE PROP 0.05% 16 GM NASAL SPRAY NS SCH (09:49)
[2018-11-23] MEDS: BACITRACIN 15 GM TUBE TOPICAL OINTMENT TP SCH ×2 (09:49→21:47)
--- NOTE | 2018-11-23 11:23 | PN ---
Teaching Attending Note Name of Resident: Courtney Mosqueda ATTENDING PHYSICIAN STATEMENT I saw and evaluated the patient. I reviewed the resident's note and discussed the case with the resident. I agree with the resident's findings and plan as documented. SUBJECTIVE:asymptomatic. denies CP, SOB, fever, chills, N/V/C/D OBJECTIVE: Last Vital Signs Temp Pulse Resp BP Pulse Ox 98.0 F 57 L 20 119/58 L 100 11/23/18 09:54 11/23/18 09:54 11/23/18 09:54 11/23/18 09:54 11/22/18 20:41 General NAD ASSESSMENT AND PLAN: 58yo M with pMH HIV on HARRT, remote heroin use on methadone, cirhosis 2/2 HCV, thrombocytopenia and previous OM of the L hallux presented to er with draining foot ulcer 1. L hallux cellulitis with OM of distal tuft- agreeable to amputation. plan for early next week. will cont abx for now. on cefazolin day 2. ID on board. F/ u cx 2. Thrombocytopenia- liekly due to cirrhosis. monitor counts. no signs of bleeding 3. HIV on HARRT- reports last CD4 was 800s. will need to bring in home HARRT therapy. 4. heroin abuse on methadone- cont dose 5. Cirrohsis due to HCV- s/p treatment. 6. DVT ppx- will place SCD. avoid pharmaceutical anticoagulation due to thrombocytopenia
[2018-11-23] MEDS: EMTRICITAB/RILPIVIRI/TENOF ALA (ODEFSEY) TABLET PO SCH (11:30)
--- NOTE | 2018-11-23 14:32 | PN ---
Physical Exam: SUBJECTIVE: Patient seen and examined today. C/o mild pain of LLE. Continuing antibiotic therapy. Plan for L 1st digit amputation on Monday. Pt is afebrile. OBJECTIVE: Vital Signs Period Temp Pulse Resp BP Sys/Forman Pulse Ox Last 24 Hr 98 F-99.2 F 52-70 18-20 117-157/57-87 98-100 GENERAL: The patient is awake, alert, and fully oriented, in no acute distress. HEENT: No lymphadenopathy LUNGS: Breath sounds equal, clear to auscultation bilaterally, no wheezes, no crackles, no accessory muscle use. HEART: Regular rate and rhythm, S1, S2 without murmur, rub or gallop. ABDOMEN: Soft, nontender, nondistended, normoactive bowel sounds, no guarding, no rebound, no hepatosplenomegaly, no masses. EXTREMITIES: 2+ pulses b/l UE & LE, no edema. Finger clubbing present. Laboratory Results - last 24 hr Laboratory Last Values WBC 3.3 K/mm3 (4.0-10.0) L 11/23/18 05:20 RBC 3.96 M/mm3 (4.00-5.60) L 11/23/18 05:20 Hgb 12.3 GM/dL (11.7-16.9) 11/23/18 05:20 Hct 36.5 % (35.4-49) 11/23/18 05:20 MCV 92.1 fl (80-96) 11/23/18 05:20 MCH 31.0 pg (25.7-33.7) 11/23/18 05:20 MCHC 33.7 g/dl (32.0-35.9) 11/23/18 05:20 RDW 13.7 % (11.9-15.9) 11/23/18 05:20 Plt Count 95 K/MM3 (134-434) L 11/23/18 05:20 MPV 8.1 fl (7.5-11.1) 11/23/18 05:20 Absolute Neuts (auto) 1.4 K/mm3 (1.5-8.0) L 11/23/18 05:20 Neutrophils % 43.3 % (42.8-82.8) D 11/23/18 05:20 Lymphocytes % 35.5 % (8-40) D 11/23/18 05:20 Monocytes % 16.2 % (3.8-10.2) H 11/23/18 05:20 Eosinophils % 4.3 % (0-4.5) D 11/23/18 05:20 Basophils % 0.7 % (0-2.0) D 11/23/18 05:20 Nucleated RBC % 0 % (0-0) 11/23/18 05:20 Platelet Estimate Decreased 11/21/18 15:37 Platelet Comment No clumping noted 11/21/18 15:37 ESR 36 mm/hr (0-20) H 11/21/18 15:37 PT with INR 13.60 SEC (9.7-13.0) H 11/21/18 15:37 INR 1.15 (0.83-1.09) H 11/21/18 15:37 PTT (Actin FS) 36.6 SECONDS (25.2-36.5) H 11/21/18 15:37 Sodium 139 mmol/L (136-145) 11/23/18 05:20 Potassium 3.6 mmol/L (3.5-5.1) 11/23/18 05:20 Chloride 104 mmol/L (98-107) 11/23/18 05:20 Carbon Dioxide 30 mmol/L (21-32) 11/23/18 05:20 Anion Gap 4 MMOL/L (8-16) L 11/23/18 05:20 BUN 16.2 mg/dL (7-18) 11/23/18 05:20 Creatinine 1.0 mg/dL (0.55-1.3) 11/23/18 05:20 Est GFR (CKD-EPI)AfAm 94.39 11/23/18 05:20 Est GFR (CKD-EPI)NonAf 81.44 11/23/18 05:20 Random Glucose 89 mg/dL (74-106) 11/23/18 05:20 Hemoglobin A1c % 5.7 % (4.2-6.3) 11/22/18 06:44 Calcium 8.3 mg/dL (8.5-10.1) L 11/23/18 05:20 Phosphorus 3.8 mg/dL (2.5-4.9) 11/23/18 05:20 Magnesium 2.4 mg/dL (1.8-2.4) 11/23/18 05:20 Total Bilirubin 0.8 mg/dL (0.2-1) 11/23/18 05:20 AST 64 U/L (15-37) H 11/23/18 05:20 ALT 23 U/L (13-61) 11/23/18 05:20 Alkaline Phosphatase 63 U/L (45-117) 11/23/18 05:20 C-Reactive Protein 9.3 MG/DL (0.00-0.3) H 11/21/18 15:37 Total Protein 7.2 g/dl (6.4-8.2) 11/23/18 05:20 Albumin 3.3 g/dl (3.4-5.0) L 11/23/18 05:20 Urine Color Yellow 11/21/18 15:41 Urine Appearance Clear 11/21/18 15:41 Urine pH 6.0 (5.0-8.0) 11/21/18 15:41 Ur Specific [place] 1.016 (1.010-1.035) 11/21/18 15:41 Urine Protein Negative (NEGATIVE) 11/21/18 15:41 Urine Glucose (UA) Negative (NEGATIVE) 11/21/18 15:41 Urine Ketones Negative (NEGATIVE) 11/21/18 15:41 Urine Blood 1+ (NEGATIVE) H 11/21/18 15:41 Urine Nitrite Negative (NEGATIVE) 11/21/18 15:41 Urine Bilirubin Negative (NEGATIVE) 11/21/18 15:41 Urine Urobilinogen 4.0 e.u/dl mg/dL (0.2-1.0) 11/21/18 15:41 Ur Leukocyte Esterase Negative (NEGATIVE) 11/21/18 15:41 Urine WBC (Auto) 0 /hpf (0-5) 11/21/18 15:41 Urine RBC (Auto) 10 /hpf (0-4) 11/21/18 15:41 Urine Casts (Auto) 0 /lpf (0-8) 11/21/18 15:41 U Epithel Cells (Auto) 0.1 /HPF (0-5/HPF) 11/21/18 15:41 Urine Bacteria (Auto) 2.9 /hpf (NEGATIVE) 11/21/18 15:41 Blood Type B POSITIVE 11/21/18 15:37 Antibody Screen Negative 11/21/18 15:37 Active Medications Generic Name Dose Route Start Last Admin Trade Name Freq PRN Reason Stop Dose Admin Acetaminophen 650 mg 11/22/18 13:48 Tylenol - PO Q6H PRN PAIN Amlodipine Besylate 5 mg 11/22/18 10:00 11/23/18 09:48 Norvasc - PO 5 mg DAILY HAN Administration Bacitracin 1 applic 11/22/18 22:00 11/23/18 09:49 Bacitracin - TP 1 applic BID HAN Administration Docusate Sodium 100 mg 11/22/18 13:22 Colace - PO TID PRN CONSTIPATION Ergocalciferol 50,000 unit 11/22/18 13:30 11/22/18 15:01 Drisdol - PO 50,000 unit Q7D HAN Administration Fluticasone Propionate 2 spray 11/22/18 13:30 11/23/18 09:49 Flonase - NS 2 spray DAILY HAN Administration Gabapentin 300 mg 11/22/18 01:45 11/23/18 09:48 Neurontin - PO 300 mg BID HAN Administration Vancomycin HCl 1,500 mg/ 500 mls @ 250 mls/hr 11/22/18 18:00 Dextrose IVPB Q12H HAN Protocol Cefazolin Sodium 1 gm/ 50 mls @ 100 mls/hr 11/22/18 12:00 11/23/18 09:48 Dextrose IVPB 100 mls/hr Q8H-IV HAN Administration Methadone HCl 40 mg/ Methadone 75 mg 11/23/18 06:00 11/23/18 05:43 HCl 30 mg/ Methadone HCl 5 mg PO 75 mg DAILY@0600 HAN Administration Multivitamins/Minerals/Vitamin C 1 tab 11/22/18 13:30 11/23/18 09:48 Tab-A-Vit - PO 1 tab DAILY HAN Administration Trazodone HCl 100 mg 11/22/18 01:45 11/22/18 21:45 Desyrel - PO 100 mg HS HAN Administration ASSESSMENT/PLAN: 58 y.o. M PMH HTN, HIV, OM n 2017 s/p I&D, IVDA (heroine), methadone usage, sciatica, cirrhosis, HCV s/p tx, thrombocytopenia presented with LLE edema found to have OM of left 1st digit. #Osteomyelitis LLE -MRI confirmed OM -LE u/s performed today -Abx cefazolin & vanc -Wound cx +: Klebsiella, staph coag neg, Diphtherioid/ corynebacterium, enterococcus -Urine cx: enterococcus, staph coag neg -Blood cx NGTD -Surgery to perform amputation of 1st digit on Monday -ID, podiatry on board #HIV -HAART #Cirrhosis -MELD 8 -Trend LFTs -Lsst INR 1.15 #Sciatica pain (chronic) -Methadone 75 (confirmed w/ s) #HTN -Amlodipine #DVT PPX -SCDs (d/t thrombocytopenia) #Dispo Home Visit type - Emergency Visit Emergency Visit: No - New Patient This patient is new to me today: No - Critical Care Critical Care patient: No ATTENDING PHYSICIAN STATEMENT I saw and evaluated the patient. I reviewed the resident's note and discussed the case with the resident. I agree with the resident's findings and plan as documented. SUBJECTIVE: OBJECTIVE: ASSESSMENT AND PLAN:
[2018-11-23] MEDS: traZODone HCL 50 MG TABLET (FP) PO SCH (21:47)
[2018-11-24] MEDS ORDERED: DEXTROSE 5%-WATER - 50 ML IVPB ONE ×2 (01:04→09:27)
[2018-11-24] MEDS ORDERED: ceFAZolin SODIUM 1 GM VIAL ONE ×2 (01:04→09:26)
[2018-11-24] MEDS: CEFAZOLIN 1 GM in DEXTROSE 5%-WATER - 50 ML IVPB SCH ×2 (01:18→09:29)
[2018-11-24] MEDS ORDERED: METHADONE HCL 10 MG TABLET ONE (05:41)
[2018-11-24] MEDS ORDERED: METHADONE HCL 5 MG TABLET ONE (05:42)
[2018-11-24] MEDS ORDERED: METHADONE HCL 40 MG DISPERSABLE TABLET ONE (05:42)
[2018-11-24] MEDS: METHADONE 40 MG, METHADONE 30 MG, METHADONE 5 MG PO SCH (06:15)
--- NOTE | 2018-11-24 07:16 | PN ---
Progress Note (short form) - Note Progress Note: Podiatry F/U: Seen/evaluated at bedside NAD. Pain controlled, denies F/V/N/C/SOB/CP. Afebrile. MRI and ultrasound completed. BRYAN: L foot: pedal pulses 1/4, TG wnl. There is a hallux distal tuft diabetic ulcer , probing to bone, seropurulent drainage, hyperkeratotic borders, no soft tissue crepitus, ascending cellulitis improving. Minimal tenderness to palpation. MRI: osteomyelitis distal phalanx of hallux Imp: 58 year old diabetic male with osteomyelitis left hallux 1. Abx per ID 2. Local care 3. Plan for left hallux partial amputation on Monday, assuming vascular cleared. NO stenosis identified on ultrasound. Patient agreeable for partial amputation after reviewing treatment options. 4. Will follow Ebonie Kaiser DPM
[2018-11-24] MEDS ORDERED: PT OWN MED DRAWER 7, Y5N ONE ×2 (09:26→10:27)
[2018-11-24] MEDS: MULTIVITAMINS (DAILY MVI) TABLET (FP) PO SCH (09:30)
[2018-11-24] MEDS: GABAPENTIN 300 MG CAPSULE (FP) PO SCH ×2 (09:30→21:48)
[2018-11-24] MEDS: amLODIPine BESYLATE 5 MG TABLET (FP) PO SCH (09:30)
[2018-11-24] MEDS: BACITRACIN 15 GM TUBE TOPICAL OINTMENT TP SCH ×2 (09:30→21:49)
[2018-11-24] MEDS: EMTRICITAB/RILPIVIRI/TENOF ALA (ODEFSEY) TABLET PO SCH ×2 (09:35→15:42)
[2018-11-24] MEDS: FLUTICASONE PROP 0.05% 16 GM NASAL SPRAY NS SCH (09:40)
--- NOTE | 2018-11-24 11:15 | PN ---
Progress Note, Physician History of Present Illness: patient stable no new issues - Current Medication List Current Medications: Active Medications Acetaminophen (Tylenol -) 650 mg PO Q6H PRN PRN Reason: PAIN Last Admin: 11/23/18 20:52 Dose: 650 mg Amlodipine Besylate (Norvasc -) [address] [facility] Last Admin: 11/24/18 09:30 Dose: 5 mg Bacitracin (Bacitracin -) [address] [facility] Last Admin: 11/24/18 09:30 Dose: 1 applic Docusate Sodium (Colace -) 100 mg PO TID PRN PRN Reason: CONSTIPATION Ergocalciferol (Drisdol -) 50,[address] [facility] Last Admin: 11/22/18 15:01 Dose: 50,000 unit Fluticasone Propionate (Flonase -) [address] [facility] Last Admin: 11/24/18 09:40 Dose: 2 spray Gabapentin (Neurontin -) [address] [facility] Last Admin: 11/24/18 09:30 Dose: 300 mg Vancomycin HCl 1,500 mg/ (Dextrose) 500 mls @ 250 mls/hr IVPB Q12H [facility]; Protocol Cefazolin Sodium 1 gm/ (Dextrose) 50 mls @ 100 mls/hr IVPB Q8H-IV [facility] Last Admin: 11/24/18 09:29 Dose: 100 mls/hr Methadone HCl 40 mg/ Methadone (HCl 30 mg/ Methadone HCl 5 mg) 75 mg PO DAILY@ 0600 [facility] Last Admin: 11/24/18 06:15 Dose: 75 mg Multivitamins/Minerals/Vitamin C (Tab-A-Vit -) [address] [facility] Last Admin: 11/24/18 09:30 Dose: 1 tab Trazodone HCl (Desyrel -) [address] [facility] Last Admin: 11/23/18 21:47 Dose: 100 mg - Objective Vital Signs: Vital Signs Temperature 97.6 F 11/24/18 06:00 Pulse Rate 50 L 11/24/18 06:00 Respiratory Rate 20 11/24/18 06:00 Blood Pressure 127/48 L 11/24/18 06:00 O2 Sat by Pulse Oximetry (%) 96 11/23/18 21:00 Constitutional: Yes: No Distress, Calm Cardiovascular: Yes: S1, S2 Respiratory: Yes: Regular, CTA Bilaterally Gastrointestinal: Yes: Normal Bowel Sounds, Soft Musculoskeletal: Yes: WNL Extremities: Yes: Other Wound/Incision: Yes: Clean/Dry Neurological: Yes: Alert, Oriented Psychiatric: Yes: Alert, Oriented Labs: CBC, BMP 11/23/18 05:20 11/23/18 05:20 INR, PTT INR 1.15 (0.83-1.09) H 11/21/18 15:37 Assessment/Plan 58M w/ PMH of HTN, HIV, h/o heroin, methadone usage, sciatica, h/p HCV s/p tx, cirrhosis, thrombocytopenia presents to [facility] with complaint of LLE swelling x2d and erythema x1d w/a fever. Left leg swelling possibly 2/2 to cellulitis, Left Leg Swelling r/o osteo of the toe HIV Cirrhosis plan mri seen osteo of the foot organism noted patient can be given vanco and ceftriaxone
--- NOTE | 2018-11-24 11:33 | PN ---
Progress Note (short form) - Note Progress Note: c/o foot pain that he usually takes tylenol #3 for. denies CP, SOB, fever, chills, N/V/C/D Current Medications Generic Name Dose Route Start Last Admin Trade Name Freq PRN Reason Stop Dose Admin Acetaminophen 650 mg 11/22/18 13:48 11/23/18 20:52 Tylenol - PO 650 mg Q6H PRN Administration PAIN Amlodipine Besylate 5 mg 11/22/18 10:00 11/24/18 09:30 Norvasc - PO 5 mg DAILY [facility] Administration Bacitracin 1 applic 11/22/18 22:00 11/24/18 09:30 Bacitracin - TP 1 applic BID [facility] Administration Docusate Sodium 100 mg 11/22/18 13:22 Colace - PO TID PRN CONSTIPATION Ergocalciferol 50,000 unit 11/22/18 13:30 11/22/18 15:01 Drisdol - PO 50,000 unit Q7D [facility] Administration Fluticasone Propionate 2 spray 11/22/18 13:30 11/24/18 09:40 Flonase - NS 2 spray DAILY [facility] Administration Gabapentin 300 mg 11/22/18 01:45 11/24/18 09:30 Neurontin - PO 300 mg BID [facility] Administration Vancomycin HCl 1,500 mg/ 500 mls @ 250 mls/hr 11/22/18 18:00 Dextrose IVPB Q12H [facility] Protocol Vancomycin HCl 1,500 mg/ 500 mls @ 250 mls/hr 11/24/18 11:15 Dextrose IVPB Q24H [facility] Protocol Ceftriaxone Sodium 2 gm in 50 mls @ 100 mls/hr 11/24/18 11:15 Ceftriaxone 2 Gm-D5w Bag IVPB DAILY [facility] Protocol Methadone HCl 40 mg/ Methadone 75 mg 11/23/18 06:00 11/24/18 06:15 HCl 30 mg/ Methadone HCl 5 mg PO 75 mg DAILY@0600 [facility] Administration Multivitamins/Minerals/Vitamin C 1 tab 11/22/18 13:30 11/24/18 09:30 Tab-A-Vit - PO 1 tab DAILY [facility] Administration Trazodone HCl 100 mg 11/22/18 01:45 11/23/18 21:47 Desyrel - PO 100 mg HS [facility] Administration Last Vital Signs Temp Pulse Resp BP Pulse Ox 97.6 F 50 L 20 127/48 L 96 11/24/18 06:00 11/24/18 06:00 11/24/18 06:00 11/24/18 06:00 11/23/18 21:00 General NAD CV S1 S2 RRR no murmur/rub/gallop Lungs CTA B/L no wheezing/rale/srhonchi Extremities L foot wrapped C/d/i ASSESSMENT AND PLAN: 58yo M with pMH HIV on HARRT, remote heroin use on methadone, cirhosis 2/2 HCV, thrombocytopenia and previous OM of the L hallux presented to er with draining foot ulcer 1. L hallux cellulitis with OM of distal tuft- agreeable to amputation. plan for early next week. will cont abx for now. on cefazolin and Vanco day 3. 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 will re- start. ID on board. F/u cx 2. Thrombocytopenia- liekly due to cirrhosis. monitor counts. no signs of bleeding 3. HIV on HARRT- reports last CD4 was 800s. cont HARRT therapy 4. heroin abuse on methadone- cont dose 5. Cirrohsis due to HCV- s/p treatment. 6. DVT ppx- will place SCD. avoid pharmaceutical anticoagulation due to thrombocytopenia Istop Reference #: [id number] Visit type - Emergency Visit Emergency Visit: Yes ED Registration Date: 11/21/18 Care time: The patient presented to the Emergency Department on the above date and was hospitalized for further evaluation of their emergent condition. - New Patient This patient is new to me today: No - Critical Care Critical Care patient: No - Discharge Referral Referred to [facility] Med P.C.: No
[2018-11-24] MEDS: ACETAMINOPHEN WITH CODEINE 300MG/30MG TABLET PO PRN (13:43)
[2018-11-24] MEDS: CEFTRIAXONE 2 GM-D5W BAG 2 GM/50 ML BAG IVPB SCH (14:39)
[2018-11-24] MEDS: VANCOMYCIN HCL 1,500 MG in DEXTROSE 5%-WATER - 500 ML IVPB SCH (14:39)
[2018-11-24] MEDS: traZODone HCL 50 MG TABLET (FP) PO SCH (21:48)
[2018-11-25] MEDS ORDERED: METHADONE HCL 10 MG TABLET ONE ×4 (05:32→05:49)
[2018-11-25] MEDS ORDERED: METHADONE HCL 5 MG TABLET ONE (05:49)
[2018-11-25] MEDS ORDERED: METHADONE HCL 40 MG DISPERSABLE TABLET ONE (05:50)
[2018-11-25] MEDS: METHADONE 40 MG, METHADONE 30 MG, METHADONE 5 MG PO SCH (06:44)
[2018-11-25] MEDS: VANCOMYCIN HCL 1,500 MG in DEXTROSE 5%-WATER - 500 ML IVPB SCH ×3 (08:51→14:19)
--- NOTE | 2018-11-25 09:45 | PN ---
Progress Note, Physician History of Present Illness: stable no new issues await for surgery tomorrow - Current Medication List Current Medications: Active Medications Acetaminophen (Tylenol -) 650 mg PO Q6H PRN PRN Reason: PAIN Last Admin: 11/23/18 20:52 Dose: 650 mg Acetaminophen/Codeine Phosphate (Tylenol # 3 -) 1 tab PO Q12H PRN PRN Reason: PAIN LEVEL 6-10 Last Admin: 11/24/18 13:43 Dose: 1 tab Amlodipine Besylate (Norvasc -) 5 mg PO DAILY [facility] Last Admin: 11/24/18 09:30 Dose: 5 mg Bacitracin (Bacitracin -) 1 applic TP BID [facility] Last Admin: 11/24/18 21:49 Dose: 1 applic Docusate Sodium (Colace -) 100 mg PO TID PRN PRN Reason: CONSTIPATION Last Admin: 11/24/18 21:48 Dose: 100 mg Ergocalciferol (Drisdol -) 50,000 unit PO Q7D [facility] Last Admin: 11/22/18 15:01 Dose: 50,000 unit Fluticasone Propionate (Flonase -) 2 spray NS DAILY [facility] Last Admin: 11/24/18 09:40 Dose: 2 spray Gabapentin (Neurontin -) 300 mg PO BID [facility] Last Admin: 11/24/18 21:48 Dose: 300 mg Vancomycin HCl 1,500 mg/ (Dextrose) 500 mls @ 250 mls/hr IVPB DAILY@1400 [facility]; Protocol Last Admin: 11/24/18 14:39 Dose: 250 mls/hr Ceftriaxone Sodium (Ceftriaxone 2 Gm-D5w Bag) 2 gm in 50 mls @ 100 mls/hr IVPB DAILY [facility]; Protocol Last Admin: 11/24/18 14:39 Dose: 100 mls/hr Methadone HCl 40 mg/ Methadone (HCl 30 mg/ Methadone HCl 5 mg) 75 mg PO DAILY@ 0600 [facility] Last Admin: 11/25/18 06:44 Dose: 75 mg Multivitamins/Minerals/Vitamin C (Tab-A-Vit -) 1 tab PO DAILY [facility] Last Admin: 11/24/18 09:30 Dose: 1 tab Trazodone HCl (Desyrel -) 100 mg PO HS [facility] Last Admin: 11/24/18 21:48 Dose: 100 mg - Objective Vital Signs: Vital Signs Temperature 98.6 F 11/25/18 09:29 Pulse Rate 74 11/25/18 09:29 Respiratory Rate 20 11/25/18 09:29 Blood Pressure 93/54 L 11/25/18 09:29 O2 Sat by Pulse Oximetry (%) 98 11/25/18 08:15 Constitutional: Yes: No Distress, Calm Cardiovascular: Yes: Regular Rate and Rhythm Respiratory: Yes: Regular, CTA Bilaterally Gastrointestinal: Yes: Normal Bowel Sounds, Soft Musculoskeletal: Yes: WNL Extremities: Yes: WNL Wound/Incision: Yes: Clean/Dry Neurological: Yes: Alert, Oriented Psychiatric: Yes: Alert, Oriented Labs: CBC, BMP 11/23/18 05:20 11/23/18 05:20 INR, PTT INR 1.15 (0.83-1.09) H 11/21/18 15:37 Assessment/Plan 58M w/ PMH of HTN, HIV, h/o heroin, methadone usage, sciatica, h/p HCV s/p tx, cirrhosis, thrombocytopenia presents [facility] with complaint of LLE swelling x2d and erythema x1d w/a fever. Left leg swelling possibly 2/2 to cellulitis, Left Leg Swelling r/o osteo of the toe HIV Cirrhosis plan mri seen osteo of the foot organism noted ct abx for surgery tomorrow
[2018-11-25] MEDS: CEFTRIAXONE 2 GM-D5W BAG 2 GM/50 ML BAG IVPB SCH (10:11)
[2018-11-25] MEDS: BACITRACIN 15 GM TUBE TOPICAL OINTMENT TP SCH ×2 (10:11→22:24)
[2018-11-25] MEDS: amLODIPine BESYLATE 5 MG TABLET (FP) PO SCH (10:12)
[2018-11-25] MEDS: MULTIVITAMINS (DAILY MVI) TABLET (FP) PO SCH (10:12)
[2018-11-25] MEDS: EMTRICITAB/RILPIVIRI/TENOF ALA (ODEFSEY) TABLET PO SCH (10:14)
[2018-11-25] MEDS: GABAPENTIN 300 MG CAPSULE (FP) PO SCH ×2 (10:14→21:10)
[2018-11-25] MEDS: FLUTICASONE PROP 0.05% 16 GM NASAL SPRAY NS SCH (10:27)
--- NOTE | 2018-11-25 11:02 | PN ---
Physical Exam: SUBJECTIVE: Patient seen and examined this AM. No acute events overnight. pain improved. For amputation on Monday. Denies any fevers, chills, chest pain, SOB , nausea, vomiting, diarrhea, constipation. OBJECTIVE: Vital Signs Period Temp Pulse Resp BP Sys/Forman Pulse Ox Last 24 Hr 97.4 F-98.6 F 56-87 20-20 93-139/54-79 98-98 GENERAL: A&Ox3, NAD HEAD: NCAT EYES: PERRL, EOMI ENT: moist mucous membranes NECK: Supple LUNGS: Clear to auscultation bilaterally, no wheezes, no crackles HEART: Regular rate and rhythm, S1, S2 without murmur ABDOMEN: Soft, nontender, nondistended, + bowel sounds, no guarding EXTREMITIES: No edema. Left Hallux distal tuft diabetic ulcer, minimal seropurulent drainage. Previously noted ascending cellulitis improving. No tenderness to palpation. Able to ambulate without distress. NEUROLOGICAL: Cranial nerves II through XII grossly intact. Normal speech SKIN: Warm, dry Laboratory Last Values WBC 3.3 K/mm3 (4.0-10.0) L 11/23/18 05:20 RBC 3.96 M/mm3 (4.00-5.60) L 11/23/18 05:20 Hgb 12.3 GM/dL (11.7-16.9) 11/23/18 05:20 Hct 36.5 % (35.4-49) 11/23/18 05:20 MCV 92.1 fl (80-96) 11/23/18 05:20 MCH 31.0 pg (25.7-33.7) 11/23/18 05:20 MCHC 33.7 g/dl (32.0-35.9) 11/23/18 05:20 RDW 13.7 % (11.9-15.9) 11/23/18 05:20 Plt Count 95 K/MM3 (134-434) L 11/23/18 05:20 MPV 8.1 fl (7.5-11.1) 11/23/18 05:20 Absolute Neuts (auto) 1.4 K/mm3 (1.5-8.0) L 11/23/18 05:20 Neutrophils % 43.3 % (42.8-82.8) D 11/23/18 05:20 Lymphocytes % 35.5 % (8-40) D 11/23/18 05:20 Monocytes % 16.2 % (3.8-10.2) H 11/23/18 05:20 Eosinophils % 4.3 % (0-4.5) D 11/23/18 05:20 Basophils % 0.7 % (0-2.0) D 11/23/18 05:20 Nucleated RBC % 0 % (0-0) 11/23/18 05:20 Platelet Estimate Decreased 11/21/18 15:37 Platelet Comment No clumping noted 11/21/18 15:37 ESR 36 mm/hr (0-20) H 11/21/18 15:37 PT with INR 13.60 SEC (9.7-13.0) H 11/21/18 15:37 INR 1.15 (0.83-1.09) H 11/21/18 15:37 PTT (Actin FS) 36.6 SECONDS (25.2-36.5) H 11/21/18 15:37 Sodium 139 mmol/L (136-145) 11/23/18 05:20 Potassium 3.6 mmol/L (3.5-5.1) 11/23/18 05:20 Chloride 104 mmol/L (98-107) 11/23/18 05:20 Carbon Dioxide 30 mmol/L (21-32) 11/23/18 05:20 Anion Gap 4 MMOL/L (8-16) L 11/23/18 05:20 BUN 16.2 mg/dL (7-18) 11/23/18 05:20 Creatinine 1.0 mg/dL (0.55-1.3) 11/23/18 05:20 Est GFR (CKD-EPI)AfAm 94.39 11/23/18 05:20 Est GFR (CKD-EPI)NonAf 81.44 11/23/18 05:20 Random Glucose 89 mg/dL (74-106) 11/23/18 05:20 Hemoglobin A1c % 5.7 % (4.2-6.3) 11/22/18 06:44 Calcium 8.3 mg/dL (8.5-10.1) L 11/23/18 05:20 Phosphorus 3.8 mg/dL (2.5-4.9) 11/23/18 05:20 Magnesium 2.4 mg/dL (1.8-2.4) 11/23/18 05:20 Total Bilirubin 0.8 mg/dL (0.2-1) 11/23/18 05:20 AST 64 U/L (15-37) H 11/23/18 05:20 ALT 23 U/L (13-61) 11/23/18 05:20 Alkaline Phosphatase 63 U/L (45-117) 11/23/18 05:20 C-Reactive Protein 9.3 MG/DL (0.00-0.3) H 11/21/18 15:37 Total Protein 7.2 g/dl (6.4-8.2) 11/23/18 05:20 Albumin 3.3 g/dl (3.4-5.0) L 11/23/18 05:20 Urine Color Yellow 11/21/18 15:41 Urine Appearance Clear 11/21/18 15:41 Urine pH 6.0 (5.0-8.0) 11/21/18 15:41 Ur Specific Carlin 1.016 (1.010-1.035) 11/21/18 15:41 Urine Protein Negative (NEGATIVE) 11/21/18 15:41 Urine Glucose (UA) Negative (NEGATIVE) 11/21/18 15:41 Urine Ketones Negative (NEGATIVE) 11/21/18 15:41 Urine Blood 1+ (NEGATIVE) H 11/21/18 15:41 Urine Nitrite Negative (NEGATIVE) 11/21/18 15:41 Urine Bilirubin Negative (NEGATIVE) 11/21/18 15:41 Urine Urobilinogen 4.0 e.u/dl mg/dL (0.2-1.0) 11/21/18 15:41 Ur Leukocyte Esterase Negative (NEGATIVE) 11/21/18 15:41 Urine WBC (Auto) 0 /hpf (0-5) 11/21/18 15:41 Urine RBC (Auto) 10 /hpf (0-4) 11/21/18 15:41 Urine Casts (Auto) 0 /lpf (0-8) 11/21/18 15:41 U Epithel Cells (Auto) 0.1 /HPF (0-5/HPF) 11/21/18 15:41 Urine Bacteria (Auto) 2.9 /hpf (NEGATIVE) 11/21/18 15:41 Blood Type B POSITIVE 11/21/18 15:37 Antibody Screen Negative 11/21/18 15:37 Microbiology 11/21/18 15:35 Blood - Peripheral Venous Blood Culture - Preliminary NO GROWTH OBTAINED AFTER 72 HOURS, INCUBATION TO CONTINUE FOR 2 DAYS. 11/21/18 15:34 Blood - Peripheral Venous Blood Culture - Preliminary NO GROWTH OBTAINED AFTER 72 HOURS, INCUBATION TO CONTINUE FOR 2 DAYS. 11/21/18 15:41 Wound Gram Stain - Final 11/21/18 15:41 Wound Wound Culture - Final Klebsiella Pneumoniae Staphylococcus Coagulase Neg Diphtheroid/Corynebacterium Enterococcus Faecalis 11/21/18 15:41 Urine - Urine Clean Catch Urine Culture - Final Group D Strep Or Entero Coccus Staphylococcus Coagulase Neg Active Medications Acetaminophen (Tylenol -) 650 mg PO Q6H PRN PRN Reason: PAIN Last Admin: 11/23/18 20:52 Dose: 650 mg Acetaminophen/Codeine Phosphate (Tylenol # 3 -) 1 tab PO Q12H PRN PRN Reason: PAIN LEVEL 6-10 Last Admin: 11/24/18 13:43 Dose: 1 tab Amlodipine Besylate (Norvasc -) 5 mg PO DAILY [facility] Last Admin: 11/25/18 10:12 Dose: 5 mg Bacitracin (Bacitracin -) 1 applic TP BID [facility] Last Admin: 11/25/18 10:11 Dose: 1 applic Docusate Sodium (Colace -) 100 mg PO TID PRN PRN Reason: CONSTIPATION Last Admin: 11/24/18 21:48 Dose: 100 mg Ergocalciferol (Drisdol -) 50,000 unit PO Q7D [facility] Last Admin: 11/22/18 15:01 Dose: 50,000 unit Fluticasone Propionate (Flonase -) 2 spray NS DAILY [facility] Last Admin: 11/25/18 10:27 Dose: 2 spray Gabapentin (Neurontin -) 300 mg PO BID [facility] Last Admin: 11/25/18 10:14 Dose: 300 mg Vancomycin HCl 1,500 mg/ (Dextrose) 500 mls @ 250 mls/hr IVPB DAILY@1400 [facility]; Protocol Last Admin: 11/24/18 14:39 Dose: 250 mls/hr Ceftriaxone Sodium (Ceftriaxone 2 Gm-D5w Bag) 2 gm in 50 mls @ 100 mls/hr IVPB DAILY [facility]; Protocol Last Admin: 11/25/18 10:11 Dose: 100 mls/hr Methadone HCl 40 mg/ Methadone (HCl 30 mg/ Methadone HCl 5 mg) 75 mg PO DAILY@ 0600 [facility] Last Admin: 11/25/18 06:44 Dose: 75 mg Multivitamins/Minerals/Vitamin C (Tab-A-Vit -) 1 tab PO DAILY [facility] Last Admin: 11/25/18 10:12 Dose: 1 tab Trazodone HCl (Desyrel -) 100 mg PO HS [facility] Last Admin: 11/24/18 21:48 Dose: 100 mg IMAGING: -LLE Duplex: No evidence of deep venous thrombosis. -CXR: Cardiomegaly, no acute disease. -Left Foot XRay: No radiographic evidence of acute osteomyelitis. -Left Foot MRI w/o Contrast: Diffuse subcutaneous soft tissue edema of the foot. Irregularity of the soft tissues and soft tissue edema of the distal phalanx of the first toe consistent with an open wound. Bone marrow edema of the distal tuft of the distal phalanx extending to the proximal metaphysis which in the setting of an infectious process is most consistent with osteomyelitis. 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 #Left Hallux Osteomyelitis with LLE Cellulitis -Imaging and micro noted above -Pain control via Acetaminophen/Codeine -Continue Vancomycin 1,500 mg daily, Ceftriaxone 2g Daily (started ABx on 11/21) -ID (Dr. Mcbride) consulted, Appreciate Rec's -Podiatry (Dr. Kaiser) consulted, Appreciate rec's, For Amputation on 11/27 -Will Need Vanco trough on Monday #Thrombocytopenia -In the setting of Cirrhosis -PLT count stable; Continue to monitor for signs of active bleeding #HIV -HAART #Hx of Cirrhosis -Due to HCV no S/P Tx #Hx of IVDA (Heroin) -Now on Methadone 75mg daily #Hx of HTN, Controlled -Continue Amlodipine #FEN -No Standing Fluids -Replete Lytes PRN -Regular diet #PPx -DVT: SCDs; Hold chemical AC in the setting of thrombocytopenia Dispo: For OR on monday Visit type - Emergency Visit Emergency Visit: Yes ED Registration Date: 11/21/18 Care time: The patient presented to the Emergency Department on the above date and was hospitalized for further evaluation of their emergent condition. - New Patient This patient is new to me today: No - Critical Care Critical Care patient: No - Discharge Referral Referred to [facility] Med P.C.: No ATTENDING PHYSICIAN STATEMENT I saw and evaluated the patient. I reviewed the resident's note and discussed the case with the resident. I agree with the resident's findings and plan as documented. SUBJECTIVE: OBJECTIVE: ASSESSMENT AND PLAN:
--- NOTE | 2018-11-25 13:22 | PN ---
Teaching Attending Note Name of Resident: Tiffanie Mak ATTENDING PHYSICIAN STATEMENT I saw and evaluated the patient. I reviewed the resident's note and discussed the case with the resident. I agree with the resident's findings and plan as documented. SUBJECTIVE:states pain is controlled wiht current regimen. denies CP, SOB, fever , chills, N/V/C/D OBJECTIVE: Last Vital Signs Temp Pulse Resp BP Pulse Ox 98.6 F 74 20 93/54 L 98 11/25/18 09:29 11/25/18 09:29 11/25/18 09:29 11/25/18 09:11/25/18 08:15 General NAD Extremities L foot wrapped C/d/i ASSESSMENT AND PLAN: 58yo M with pMH HIV on HARRT, remote heroin use on methadone, cirhosis 2/2 HCV, thrombocytopenia and previous OM of the L hallux presented to er with draining foot ulcer 1. L hallux cellulitis with OM of distal tuft- agreeable to amputation. plan for monday. awaiting vascular input on arterial u/s. on ceftiraxone and vanco day 4. monitor vanco level. pain control. ID, vasc and podiatry on board 2. Thrombocytopenia- liekly due to cirrhosis. monitor counts. no signs of bleeding 3. HIV on HARRT- reports last CD4 was 800s. cont HARRT therapy 4. heroin abuse on methadone- cont dose 5. Cirrohsis due to HCV- s/p treatment. 6. DVT ppx- will place SCD. avoid pharmaceutical anticoagulation due to thrombocytopenia
[2018-11-25] MEDS: ACETAMINOPHEN WITH CODEINE 300MG/30MG TABLET PO PRN (14:20)
[2018-11-25] MEDS: traZODone HCL 50 MG TABLET (FP) PO SCH (21:10)
[2018-11-26] MEDS ORDERED: METHADONE HCL 10 MG TABLET ONE (05:40)
[2018-11-26] MEDS ORDERED: METHADONE HCL 40 MG DISPERSABLE TABLET ONE (05:41)
[2018-11-26] MEDS ORDERED: METHADONE HCL 5 MG TABLET ONE (05:41)
[2018-11-26] MEDS: METHADONE 40 MG, METHADONE 30 MG, METHADONE 5 MG PO SCH (05:46)
--- NOTE | 2018-11-26 08:32 | PN ---
Progress Note, Physician History of Present Illness: stable doing well plan for surgery today - Current Medication List Current Medications: Active Medications Acetaminophen (Tylenol -) 650 mg PO Q6H PRN PRN Reason: PAIN Last Admin: 11/23/18 20:52 Dose: 650 mg Acetaminophen/Codeine Phosphate (Tylenol # 3 -) 1 tab PO Q12H PRN PRN Reason: PAIN LEVEL 6-10 Last Admin: 11/25/18 14:20 Dose: 1 tab Amlodipine Besylate (Norvasc -) 5 mg PO DAILY [facility] Last Admin: 11/25/18 10:12 Dose: 5 mg Bacitracin (Bacitracin -) 1 applic TP BID [facility] Last Admin: 11/25/18 22:24 Dose: 1 applic Docusate Sodium (Colace -) 100 mg PO TID PRN PRN Reason: CONSTIPATION Last Admin: 11/24/18 21:48 Dose: 100 mg Ergocalciferol (Drisdol -) 50,000 unit PO Q7D [facility] Last Admin: 11/22/18 15:01 Dose: 50,000 unit Fluticasone Propionate (Flonase -) 2 spray NS DAILY [facility] Last Admin: 11/25/18 10:27 Dose: 2 spray Gabapentin (Neurontin -) 300 mg PO BID [facility] Last Admin: 11/25/18 21:10 Dose: 300 mg Vancomycin HCl 1,500 mg/ (Dextrose) 500 mls @ 250 mls/hr IVPB DAILY@1400 [facility]; Protocol Last Admin: 11/25/18 14:19 Dose: 250 mls/hr Ceftriaxone Sodium (Ceftriaxone 2 Gm-D5w Bag) 2 gm in 50 mls @ 100 mls/hr IVPB DAILY [facility]; Protocol Last Admin: 11/25/18 10:11 Dose: 100 mls/hr Methadone HCl 40 mg/ Methadone (HCl 30 mg/ Methadone HCl 5 mg) 75 mg PO DAILY@ 0600 [facility] Last Admin: 11/26/18 05:46 Dose: 75 mg Multivitamins/Minerals/Vitamin C (Tab-A-Vit -) 1 tab PO DAILY [facility] Last Admin: 11/25/18 10:12 Dose: 1 tab Trazodone HCl (Desyrel -) 100 mg PO HS [facility] Last Admin: 11/25/18 21:10 Dose: 100 mg - Objective Vital Signs: Vital Signs Temperature 97.8 F 11/26/18 07:00 Pulse Rate 59 L 11/26/18 07:00 Respiratory Rate 20 11/26/18 07:00 Blood Pressure 121/61 11/26/18 07:00 O2 Sat by Pulse Oximetry (%) 97 11/25/18 21:00 Constitutional: Yes: No Distress, Calm Cardiovascular: Yes: Regular Rate and Rhythm Respiratory: Yes: Regular, CTA Bilaterally Gastrointestinal: Yes: Normal Bowel Sounds, Soft Musculoskeletal: Yes: WNL Extremities: Yes: WNL Neurological: Yes: Alert, Oriented Psychiatric: Yes: Alert, Oriented Labs: CBC, BMP 11/23/18 05:20 11/23/18 05:20 INR, PTT INR 1.15 (0.83-1.09) H 11/21/18 15:37 Assessment/Plan 58M w/ PMH of HTN, HIV, h/o heroin, methadone usage, sciatica, h/p HCV s/p tx, cirrhosis, thrombocytopenia presents to [facility] with complaint of LLE swelling x2d and erythema x1d w/a fever. Left leg swelling possibly 2/2 to cellulitis, Left Leg Swelling r/o osteo of the toe HIV Cirrhosis plan continue current mgmt surgery today rest a sper the team
[2018-11-26] MEDS ORDERED: PT OWN MED DRAWER 7, Y5N ONE (10:07)
[2018-11-26] MEDS: BACITRACIN 15 GM TUBE TOPICAL OINTMENT TP SCH ×2 (10:17→23:27)
[2018-11-26] MEDS: GABAPENTIN 300 MG CAPSULE (FP) PO SCH ×2 (10:18→23:26)
[2018-11-26] MEDS: amLODIPine BESYLATE 5 MG TABLET (FP) PO SCH (10:18)
[2018-11-26] MEDS: EMTRICITAB/RILPIVIRI/TENOF ALA (ODEFSEY) TABLET PO SCH (10:18)
[2018-11-26] MEDS: FLUTICASONE PROP 0.05% 16 GM NASAL SPRAY NS SCH (10:26)
[2018-11-26] MEDS: CEFTRIAXONE 2 GM-D5W BAG 2 GM/50 ML BAG IVPB SCH (10:31)
[2018-11-26] MEDS: MULTIVITAMINS (DAILY MVI) TABLET (FP) PO SCH (10:31)
[2018-11-26] MEDS: VANCOMYCIN HCL 1,500 MG in DEXTROSE 5%-WATER - 500 ML IVPB SCH (13:58)
--- NOTE | 2018-11-26 16:10 | PN ---
Teaching Attending Note Name of Resident: Courtney Mosqueda ATTENDING PHYSICIAN STATEMENT I saw and evaluated the patient. I reviewed the resident's note and discussed the case with the resident. I agree with the resident's findings and plan as documented. SUBJECTIVE:pain in foot has resolved. no more erythema. denies CP, SOB, fever, chills, N/V/C/D OBJECTIVE: Last Vital Signs Temp Pulse Resp BP Pulse Ox 98.1 F 75 20 117/58 L 97 11/26/18 15:00 11/26/18 15:00 11/26/18 15:00 11/26/18 15:00 11/25/18 21:00 General NAD Extremities LLE trace pitting edema, no warmth or tenderness. foot wrapped C/d/i ASSESSMENT AND PLAN: 58yo M with pMH HIV on HARRT, remote heroin use on methadone, cirhosis 2/2 HCV, thrombocytopenia and previous OM of the L hallux presented to er with draining foot ulcer 1. L hallux cellulitis with OM of distal tuft- WCx polymicrobial. NPO tonight for amputation tomorrow. on ceftiraxone and vanco day 5. will need vanco trough tomorrow. follow up culture from amputation to see if [facility] abx are necessary. pain control. ID, vasc and podiatry on board 2. Thrombocytopenia- liekly due to cirrhosis. monitor counts. no signs of bleeding 3. HIV on HARRT- reports last CD4 was 800s. cont HARRT therapy 4. heroin abuse on methadone- cont dose 5. Cirrohsis due to HCV- s/p treatment. 6. DVT ppx- will place SCD. avoid pharmaceutical anticoagulation due to thrombocytopenia
--- NOTE | 2018-11-26 17:34 | PN ---
Physical Exam: SUBJECTIVE: Patient seen and examined at bedside today. In no acute distress. Tolerating diet. No complaints at this time. OBJECTIVE: Vital Signs Period Temp Pulse Resp BP Sys/Forman Pulse Ox Last 24 Hr 97.7 F-98.1 F 47-75 20-20 101-124/57-64 97 GENERAL: The patient is awake, alert, and fully oriented, in no acute distress. LUNGS: Breath sounds equal, clear to auscultation bilaterally, no wheezes, no crackles, no accessory muscle use. HEART: Regular rate and rhythm, S1, S2 without murmurs ABDOMEN: Soft, nontender, nondistended, normoactive bowel sounds, no masses on palpation EXTREMITIES: LLE 1st digit ulcer. LLE 1+ edema. Pulses palpable b/l LE. Normal ROM b/l LE. Skin: LLE cellulitis present Laboratory Last Values WBC 3.3 K/mm3 (4.0-10.0) L 11/23/18 05:20 RBC 3.96 M/mm3 (4.00-5.60) L 11/23/18 05:20 Hgb 12.3 GM/dL (11.7-16.9) 11/23/18 05:20 Hct 36.5 % (35.4-49) 11/23/18 05:20 MCV 92.1 fl (80-96) 11/23/18 05:20 MCH 31.0 pg (25.7-33.7) 11/23/18 05:20 MCHC 33.7 g/dl (32.0-35.9) 11/23/18 05:20 RDW 13.7 % (11.9-15.9) 11/23/18 05:20 Plt Count 95 K/MM3 (134-434) L 11/23/18 05:20 MPV 8.1 fl (7.5-11.1) 11/23/18 05:20 Absolute Neuts (auto) 1.4 K/mm3 (1.5-8.0) L 11/23/18 05:20 Neutrophils % 43.3 % (42.8-82.8) D 11/23/18 05:20 Lymphocytes % 35.5 % (8-40) D 11/23/18 05:20 Monocytes % 16.2 % (3.8-10.2) H 11/23/18 05:20 Eosinophils % 4.3 % (0-4.5) D 11/23/18 05:20 Basophils % 0.7 % (0-2.0) D 11/23/18 05:20 Nucleated RBC % 0 % (0-0) 11/23/18 05:20 Platelet Estimate Decreased 11/21/18 15:37 Platelet Comment No clumping noted 11/21/18 15:37 ESR 36 mm/hr (0-20) H 11/21/18 15:37 PT with INR 13.60 SEC (9.7-13.0) H 11/21/18 15:37 INR 1.15 (0.83-1.09) H 11/21/18 15:37 PTT (Actin FS) 36.6 SECONDS (25.2-36.5) H 11/21/18 15:37 Sodium 139 mmol/L (136-145) 11/23/18 05:20 Potassium 3.6 mmol/L (3.5-5.1) 11/23/18 05:20 Chloride 104 mmol/L (98-107) 11/23/18 05:20 Carbon Dioxide 30 mmol/L (21-32) 11/23/18 05:20 Anion Gap 4 MMOL/L (8-16) L 11/23/18 05:20 BUN 16.2 mg/dL (7-18) 11/23/18 05:20 Creatinine 1.0 mg/dL (0.55-1.3) 11/23/18 05:20 Est GFR (CKD-EPI)AfAm 94.39 11/23/18 05:20 Est GFR (CKD-EPI)NonAf 81.44 11/23/18 05:20 Random Glucose 89 mg/dL (74-106) 11/23/18 05:20 Hemoglobin A1c % 5.7 % (4.2-6.3) 11/22/18 06:44 Calcium 8.3 mg/dL (8.5-10.1) L 11/23/18 05:20 Phosphorus 3.8 mg/dL (2.5-4.9) 11/23/18 05:20 Magnesium 2.4 mg/dL (1.8-2.4) 11/23/18 05:20 Total Bilirubin 0.8 mg/dL (0.2-1) 11/23/18 05:20 AST 64 U/L (15-37) H 11/23/18 05:20 ALT 23 U/L (13-61) 11/23/18 05:20 Alkaline Phosphatase 63 U/L (45-117) 11/23/18 05:20 C-Reactive Protein 9.3 MG/DL (0.00-0.3) H 11/21/18 15:37 Total Protein 7.2 g/dl (6.4-8.2) 11/23/18 05:20 Albumin 3.3 g/dl (3.4-5.0) L 11/23/18 05:20 Urine Color Yellow 11/21/18 15:41 Urine Appearance Clear 11/21/18 15:41 Urine pH 6.0 (5.0-8.0) 11/21/18 15:41 Ur Specific [place] 1.016 (1.010-1.035) 11/21/18 15:41 Urine Protein Negative (NEGATIVE) 11/21/18 15:41 Urine Glucose (UA) Negative (NEGATIVE) 11/21/18 15:41 Urine Ketones Negative (NEGATIVE) 11/21/18 15:41 Urine Blood 1+ (NEGATIVE) H 11/21/18 15:41 Urine Nitrite Negative (NEGATIVE) 11/21/18 15:41 Urine Bilirubin Negative (NEGATIVE) 11/21/18 15:41 Urine Urobilinogen 4.0 e.u/dl mg/dL (0.2-1.0) 11/21/18 15:41 Ur Leukocyte Esterase Negative (NEGATIVE) 11/21/18 15:41 Urine WBC (Auto) 0 /hpf (0-5) 11/21/18 15:41 Urine RBC (Auto) 10 /hpf (0-4) 11/21/18 15:41 Urine Casts (Auto) 0 /lpf (0-8) 11/21/18 15:41 U Epithel Cells (Auto) 0.1 /HPF (0-5/HPF) 11/21/18 15:41 Urine Bacteria (Auto) 2.9 /hpf (NEGATIVE) 11/21/18 15:41 Blood Type B POSITIVE 11/21/18 15:37 Antibody Screen Negative 11/21/18 15:37 Active Medications Generic Name Dose Route Start Last Admin Trade Name Freq PRN Reason Stop Dose Admin Acetaminophen 650 mg 11/22/18 13:48 11/23/18 20:52 Tylenol - PO 650 mg Q6H PRN Administration PAIN Acetaminophen/Codeine Phosphate 1 tab 11/24/18 12:12 11/25/18 14:20 Tylenol # 3 - PO 1 tab Q12H PRN Administration PAIN LEVEL 6-10 Amlodipine Besylate 5 mg 11/22/18 10:00 11/26/18 10:18 Norvasc - PO 5 mg DAILY [facility]AN Administration Bacitracin 1 applic 11/22/18 22:00 11/26/18 10:17 Bacitracin - TP 1 applic BID [facility]AN Administration Docusate Sodium 100 mg 11/22/18 13:22 11/24/18 21:48 Colace - PO 100 mg TID PRN Administration CONSTIPATION Ergocalciferol 50,000 unit 11/22/18 13:30 11/22/18 15:01 Drisdol - PO 50,000 unit Q7D [facility]AN Administration Fluticasone Propionate 2 spray 11/22/18 13:30 11/26/18 10:26 Flonase - NS 2 spray DAILY [facility] Administration Gabapentin 300 mg 11/22/18 01:45 11/26/18 10:18 Neurontin - PO 300 mg BID [facility] Administration Vancomycin HCl 1,500 mg/ 500 mls @ 250 mls/hr 11/24/18 14:00 11/26/18 13:58 Dextrose IVPB 250 mls/hr DAILY@1400 [facility] Administration Protocol Ceftriaxone Sodium 2 gm in 50 mls @ 100 mls/hr 11/24/18 13:45 11/26/18 10:31 Ceftriaxone 2 Gm-D5w Bag IVPB 100 mls/hr DAILY [facility] Administration Protocol Methadone HCl 40 mg/ Methadone 75 mg 11/23/18 06:00 11/26/18 05:46 HCl 30 mg/ Methadone HCl 5 mg PO 75 mg DAILY@0600 [facility] Administration Multivitamins/Minerals/Vitamin C 1 tab 11/22/18 13:30 11/26/18 10:31 Tab-A-Vit - PO 1 tab DAILY [facility] Administration Trazodone HCl 100 mg 11/22/18 01:45 11/25/18 21:10 Desyrel - PO 100 mg HS [facility]AN Administration IMAGING: -LLE Duplex: No evidence of deep venous thrombosis. -CXR: Cardiomegaly, no acute disease. -Left Foot XRay: No radiographic evidence of acute osteomyelitis. -Left Foot MRI w/o Contrast: Diffuse subcutaneous soft tissue edema of the foot. Irregularity of the soft tissues and soft tissue edema of the distal phalanx of the first toe consistent with an open wound. Bone marrow edema of the distal tuft of the distal phalanx extending to the proximal metaphysis which in the setting of an infectious process is most consistent with osteomyelitis. -B/L LE Arterial Duplex: Findings are compatible with [id number] atherosclerotic disease in the right and left lower extremity deep arterial system without evidence of hemodynamically significant stenosis or occlusion -EKG: Sinus Denis with 1st degree AV Block, LVH with QRS widening, VR 59, QTc 461 ASSESSMENT/PLAN: 58 y.o. PMH HTN, HIV, OM s/p I&D 2016, IVDA (heroine), on methadone, cirrhosis d /t HCV s/p HCV tx, thrombocytopenia preented for LLE edema found to have OM of left 1st digit #Left 1st digit OM w/ LLE Cellulitis -MRI + for OM -Wound cx + Klebsiella, staph, diphtheroid/ corynebacterium, enterococcus -Pain control PRN; Acetaminophen/Codeine -C/w Vancomycin 1,500 mg daily, Ceftriaxone 2g Daily (day #3 abx started 11/21); vanc trough tomorrow -ID (Dr. Mcbride) on board -Podiatry (Dr. Kaiser) on board -Surgery tomorrow 11/27 #Thrombocytopenia -95 today -No active signs of bleeding #HIV -C/w HAART #Hx of Cirrhosis -Due to HCV -S/p treatment #Hx of IVDA (Heroin) -On Methadone 75mg daily #Hx of HTN, Controlled -c/w Amlodipine #FEN -No Standing Fluids -Replete Lytes PRN -Regular diet -NPO at midnight before OR tomorrow #PPx -DVT: SCDs; Hold chemical AC in the setting of thrombocytopenia Dispo: OR tomorrow 11/27 Visit type - Emergency Visit Emergency Visit: No - New Patient This patient is new to me today: No - Critical Care Critical Care patient: No ATTENDING PHYSICIAN STATEMENT I saw and evaluated the patient. I reviewed the resident's note and discussed the case with the resident. I agree with the resident's findings and plan as documented. SUBJECTIVE: OBJECTIVE: ASSESSMENT AND PLAN:
--- NOTE | 2018-11-26 17:41 | PN ---
Physical Exam: SUBJECTIVE: Patient seen and examined OBJECTIVE: Vital Signs Period Temp Pulse Resp BP Sys/Forman Pulse Ox Last 24 Hr 97.7 F-98.1 F 47-75 20-20 101-124/57-64 97 GENERAL: The patient is awake, alert, and fully oriented, in no acute distress. HEAD: Normal with no signs of trauma. EYES: PERRL, extraocular movements intact, sclera anicteric, conjunctiva clear. No ptosis. ENT: Ears normal, nares patent, oropharynx clear without exudates, moist mucous membranes. NECK: Trachea midline, full range of motion, supple. LUNGS: Breath sounds equal, clear to auscultation bilaterally, no wheezes, no crackles, no accessory muscle use. HEART: Regular rate and rhythm, S1, S2 without murmur, rub or gallop. ABDOMEN: Soft, nontender, nondistended, normoactive bowel sounds, no guarding, no rebound, no hepatosplenomegaly, no masses. EXTREMITIES: 2+ pulses, warm, well-perfused, no edema. NEUROLOGICAL: Cranial nerves II through XII grossly intact. Normal speech, gait not observed. PSYCH: Normal mood, normal affect. SKIN: Warm, dry, normal turgor, no rashes or lesions noted Active Medications Generic Name Dose Route Start Last Admin Trade Name Freq PRN Reason Stop Dose Admin Acetaminophen 650 mg 11/22/18 13:48 11/23/18 20:52 Tylenol - PO 650 mg Q6H PRN Administration PAIN Acetaminophen/Codeine Phosphate 1 tab 11/24/18 12:12 11/25/18 14:20 Tylenol # 3 - PO 1 tab Q12H PRN Administration PAIN LEVEL 6-10 Amlodipine Besylate 5 mg 11/22/18 10:00 11/26/18 10:18 Norvasc - PO 5 mg DAILY [facility] Administration Bacitracin 1 applic 11/22/18 22:00 11/26/18 10:17 Bacitracin - TP 1 applic BID [facility]AN Administration Docusate Sodium 100 mg 11/22/18 13:22 11/24/18 21:48 Colace - PO 100 mg TID PRN Administration CONSTIPATION Ergocalciferol 50,000 unit 11/22/18 13:30 11/22/18 15:01 Drisdol - PO 50,000 unit Q7D [facility] Administration Fluticasone Propionate 2 spray 11/22/18 13:30 11/26/18 10:26 Flonase - NS 2 spray DAILY [facility] Administration Gabapentin 300 mg 11/22/18 01:45 11/26/18 10:18 Neurontin - PO 300 mg BID [facility] Administration Vancomycin HCl 1,500 mg/ 500 mls @ 250 mls/hr 11/24/18 14:00 11/26/18 13:58 Dextrose IVPB 250 mls/hr DAILY@1400 [facility] Administration Protocol Ceftriaxone Sodium 2 gm in 50 mls @ 100 mls/hr 11/24/18 13:45 11/26/18 10:31 Ceftriaxone 2 Gm-D5w Bag IVPB 100 mls/hr DAILY [facility] Administration Protocol Methadone HCl 40 mg/ Methadone 75 mg 11/23/18 06:00 11/26/18 05:46 HCl 30 mg/ Methadone HCl 5 mg PO 75 mg DAILY@0600 [facility] Administration Multivitamins/Minerals/Vitamin C 1 tab 11/22/18 13:30 11/26/18 10:31 Tab-A-Vit - PO 1 tab DAILY [facility] Administration Trazodone HCl 100 mg 11/22/18 01:45 11/25/18 21:10 Desyrel - PO 100 mg HS [facility]AN Administration ASSESSMENT/PLAN: ATTENDING PHYSICIAN STATEMENT I saw and evaluated the patient. I reviewed the resident's note and discussed the case with the resident. I agree with the resident's findings and plan as documented. SUBJECTIVE: OBJECTIVE: ASSESSMENT AND PLAN:
[2018-11-26] MEDS: traZODone HCL 50 MG TABLET (FP) PO SCH (23:26)
[2018-11-27] MEDS: METHADONE 40 MG, METHADONE 30 MG, METHADONE 5 MG PO SCH ×2 (05:38→16:29)
[2018-11-27 08:18] LABS: BASO % 0.5 % (0-2.0); EOS % 3.9 % (0-4.5); HEMOGLOBIN 14.1 GM/dL (11.7-16.9); LYMPH % 44.7 % (8-40); MCH 31.4 pg (25.7-33.7); MCHC 33.6 g/dl (32.0-35.9); MEAN CELL VOLUME 93.3 fl (80-96); MEAN PLT VOLUME 7.9 fl (7.5-11.1); MONO % 10.7 % (3.8-10.2); NEUT % 40.2 % (42.8-82.8); RDW 14.4 % (11.9-15.9)
[2018-11-27 08:53] LABS: ALBUMIN 3.8 g/dl (3.4-5.0); BILIRUBIN,TOTAL 0.4 mg/dL (0.2-1); BLOOD UREA NITROGEN 15.3 mg/dL (7-18); CALCIUM 9.2 mg/dL (8.5-10.1); MAGNESIUM 2.3 mg/dL (1.8-2.4); PHOSPHOROUS 4.1 mg/dL (2.5-4.9); POTASSIUM 4.2 mmol/L (3.5-5.1); TOT PROT 8.3 g/dl (6.4-8.2)
[2018-11-27 09:54] LABS: PLATELET COUNT 129 K/MM3 (134-434)
[2018-11-27] MEDS ORDERED: PT OWN MED DRAWER 7, Y5N ONE ×3 (10:39→18:10)
[2018-11-27] MEDS: BACITRACIN 15 GM TUBE TOPICAL OINTMENT TP SCH ×2 (10:55→22:34)
[2018-11-27] MEDS: GABAPENTIN 300 MG CAPSULE (FP) PO SCH ×2 (11:07→22:35)
[2018-11-27] MEDS: MULTIVITAMINS (DAILY MVI) TABLET (FP) PO SCH (11:07)
[2018-11-27] MEDS: CEFTRIAXONE 2 GM-D5W BAG 2 GM/50 ML BAG IVPB SCH (11:16)
[2018-11-27] MEDS: amLODIPine BESYLATE 5 MG TABLET (FP) PO SCH (11:17)
[2018-11-27] MEDS: EMTRICITAB/RILPIVIRI/TENOF ALA (ODEFSEY) TABLET PO SCH ×2 (11:17→16:31)
[2018-11-27] MEDS ORDERED: CEFTRIAXONE 2 GM in DEXTROSE 5%-WATER 100 ML IVPB SCH (11:18)
[2018-11-27] MEDS: FLUTICASONE PROP 0.05% 16 GM NASAL SPRAY NS SCH (11:24)
--- NOTE | 2018-11-27 12:51 | PN ---
Progress Note, Physician History of Present Illness: stable for surgery today - Current Medication List Current Medications: Active Medications Acetaminophen (Tylenol -) 650 mg PO Q6H PRN PRN Reason: PAIN Last Admin: 11/23/18 20:52 Dose: 650 mg Amlodipine Besylate (Norvasc -) 5 mg PO DAILY [facility] Last Admin: 11/27/18 11:17 Dose: Not Given Bacitracin (Bacitracin -) 1 applic TP BID [facility] Last Admin: 11/27/18 10:55 Dose: Not Given Docusate Sodium (Colace -) 100 mg PO TID PRN PRN Reason: CONSTIPATION Last Admin: 11/24/18 21:48 Dose: 100 mg Ergocalciferol (Drisdol -) 50,000 unit PO Q7D [facility] Last Admin: 11/22/18 15:01 Dose: 50,000 unit Fluticasone Propionate (Flonase -) 2 spray NS DAILY [facility] Last Admin: 11/27/18 11:24 Dose: Not Given Gabapentin (Neurontin -) 300 mg PO BID [facility] Last Admin: 11/27/18 11:07 Dose: Not Given Vancomycin HCl 1,500 mg/ (Dextrose) 500 mls @ 250 mls/hr IVPB DAILY@1400 [facility]; Protocol Last Admin: 11/26/18 13:58 Dose: 250 mls/hr Ceftriaxone Sodium 2 gm/ (Dextrose) 100 mls @ 200 mls/hr IVPB DAILY [facility]; Protocol Methadone HCl 40 mg/ Methadone (HCl 30 mg/ Methadone HCl 5 mg) 75 mg PO DAILY@ 0600 [facility] Last Admin: 11/27/18 05:38 Dose: Not Given Multivitamins/Minerals/Vitamin C (Tab-A-Vit -) 1 tab PO DAILY [facility] Last Admin: 11/27/18 11:07 Dose: Not Given Trazodone HCl (Desyrel -) 100 mg PO HS [facility] Last Admin: 11/26/18 23:26 Dose: 100 mg - Objective Vital Signs: Vital Signs Temperature 97 F L 11/27/18 06:27 Pulse Rate 73 11/27/18 06:27 Respiratory Rate 20 11/27/18 06:27 Blood Pressure 129/69 11/27/18 06:27 O2 Sat by Pulse Oximetry (%) 98 11/26/18 21:00 Constitutional: Yes: No Distress, Calm Cardiovascular: Yes: S1, S2 Gastrointestinal: Yes: Normal Bowel Sounds, Soft Musculoskeletal: Yes: WNL Extremities: Yes: WNL Neurological: Yes: Alert, Oriented Psychiatric: Yes: Alert, Oriented Labs: CBC, BMP 11/27/18 06:00 11/27/18 06:00 INR, PTT INR 1.15 (0.83-1.09) H 11/21/18 15:37 Assessment/Plan 58M w/ PMH of HTN, HIV, h/o heroin, methadone usage, sciatica, h/p HCV s/p tx, cirrhosis, thrombocytopenia presents to [facility] with complaint of LLE swelling x2d and erythema x1d w/a fever. Left leg swelling possibly 2/2 to cellulitis, Left Leg Swelling r/o osteo of the toe HIV Cirrhosis plan continue current mgmt surgery today will await fro results vanco trough rest as per the team
[2018-11-27] MEDS ORDERED: LIDOCAINE HCL 2% (20ML MULTI-DOSE VIAL) NR ONE (13:22)
[2018-11-27] MEDS ORDERED: MIDAZOLAM HCL 2 MG/2 ML SINGLE DOSE VIAL ONE ×5 (13:26→14:16)
[2018-11-27] MEDS ORDERED: PROPOFOL 20 ML ONE ×2 (13:45)
[2018-11-27] MEDS ORDERED: LIDOCAINE HCL 2% (50ML VIAL) NR ONE (13:55)
--- NOTE | 2018-11-27 14:28 | PN ---
Physical Exam: SUBJECTIVE: Patient seen and examined at bedside today. No acute events overnight. Scheduled for LLE 1st digit amputation today. OBJECTIVE: Vital Signs Period Temp Pulse Resp BP Sys/Forman Pulse Ox Last 24 Hr 97 F-98.1 F 47-75 20-20 101-135/57-80 98 GENERAL: AOx3, in no acute distress. LUNGS: CTABL. No incr work of breathing. No wheezing noted HEART: Regular rate and rhythm, S1, S2 heard. No murmurs appreciated. ABDOMEN: Soft, nontender, nondistended, normoactive bowel sounds. No masses palpated. EXTREMITIES: 2+ pulses presnt b/l LE & UE. LLE 1+ edema, erythematous, anterior cellulitis present. LLE 1st digit wound productive of serosanguinous fluid. Laboratory Results - last 24 hr Laboratory Last Values WBC 4.0 K/mm3 (4.0-10.0) 11/27/18 06:00 RBC 4.50 M/mm3 (4.00-5.60) 11/27/18 06:00 Hgb 14.1 GM/dL (11.7-16.9) 11/27/18 06:00 Hct 42.0 % (35.4-49) D 11/27/18 06:00 MCV 93.3 fl (80-96) 11/27/18 06:00 MCH 31.4 pg (25.7-33.7) 11/27/18 06:00 MCHC 33.6 g/dl (32.0-35.9) 11/27/18 06:00 RDW 14.4 % (11.9-15.9) 11/27/18 06:00 Plt Count 129 K/MM3 (134-434) L D 11/27/18 06:00 MPV 7.9 fl (7.5-11.1) 11/27/18 06:00 Absolute Neuts (auto) 1.6 K/mm3 (1.5-8.0) 11/27/18 06:00 Neutrophils % 40.2 % (42.8-82.8) L 11/27/18 06:00 Lymphocytes % 44.7 % (8-40) H D 11/27/18 06:00 Monocytes % 10.7 % (3.8-10.2) H 11/27/18 06:00 Eosinophils % 3.9 % (0-4.5) 11/27/18 06:00 Basophils % 0.5 % (0-2.0) 11/27/18 06:00 Nucleated RBC % 0 % (0-0) 11/27/18 06:00 Platelet Estimate Decreased 11/21/18 15:37 Platelet Comment No clumping noted 11/21/18 15:37 ESR 36 mm/hr (0-20) H 11/21/18 15:37 PT with INR 13.60 SEC (9.7-13.0) H 11/21/18 15:37 INR 1.15 (0.83-1.09) H 11/21/18 15:37 PTT (Actin FS) 36.6 SECONDS (25.2-36.5) H 11/21/18 15:37 Sodium 138 mmol/L (136-145) 11/27/18 06:00 Potassium 4.2 mmol/L (3.5-5.1) 11/27/18 06:00 Chloride 104 mmol/L (98-107) 11/27/18 06:00 Carbon Dioxide 32 mmol/L (21-32) 11/27/18 06:00 Anion Gap 3 MMOL/L (8-16) L 11/27/18 06:00 BUN 15.3 mg/dL (7-18) 11/27/18 06:00 Creatinine 1.0 mg/dL (0.55-1.3) 11/27/18 06:00 Est GFR (CKD-EPI)AfAm 94.39 11/27/18 06:00 Est GFR (CKD-EPI)NonAf 81.44 11/27/18 06:00 Random Glucose 87 mg/dL (74-106) 11/27/18 06:00 Hemoglobin A1c % 5.7 % (4.2-6.3) 11/22/18 06:44 Calcium 9.2 mg/dL (8.5-10.1) 11/27/18 06:00 Phosphorus 4.1 mg/dL (2.5-4.9) 11/27/18 06:00 Magnesium 2.3 mg/dL (1.8-2.4) 11/27/18 06:00 Total Bilirubin 0.4 mg/dL (0.2-1) 11/27/18 06:00 AST 65 U/L (15-37) H 11/27/18 06:00 ALT 27 U/L (13-61) 11/27/18 06:00 Alkaline Phosphatase 71 U/L (45-117) 11/27/18 06:00 C-Reactive Protein 9.3 MG/DL (0.00-0.3) H 11/21/18 15:37 Total Protein 8.3 g/dl (6.4-8.2) H 11/27/18 06:00 Albumin 3.8 g/dl (3.4-5.0) 11/27/18 06:00 Urine Color Yellow 11/21/18 15:41 Urine Appearance Clear 11/21/18 15:41 Urine pH 6.0 (5.0-8.0) 11/21/18 15:41 Ur Specific [place] 1.016 (1.010-1.035) 11/21/18 15:41 Urine Protein Negative (NEGATIVE) 11/21/18 15:41 Urine Glucose (UA) Negative (NEGATIVE) 11/21/18 15:41 Urine Ketones Negative (NEGATIVE) 11/21/18 15:41 Urine Blood 1+ (NEGATIVE) H 11/21/18 15:41 Urine Nitrite Negative (NEGATIVE) 11/21/18 15:41 Urine Bilirubin Negative (NEGATIVE) 11/21/18 15:41 Urine Urobilinogen 4.0 e.u/dl mg/dL (0.2-1.0) 11/21/18 15:41 Ur Leukocyte Esterase Negative (NEGATIVE) 11/21/18 15:41 Urine WBC (Auto) 0 /hpf (0-5) 11/21/18 15:41 Urine RBC (Auto) 10 /hpf (0-4) 11/21/18 15:41 Urine Casts (Auto) 0 /lpf (0-8) 11/21/18 15:41 U Epithel Cells (Auto) 0.1 /HPF (0-5/HPF) 11/21/18 15:41 Urine Bacteria (Auto) 2.9 /hpf (NEGATIVE) 11/21/18 15:41 Blood Type B POSITIVE 11/27/18 06:20 Antibody Screen Negative 11/27/18 06:20 Active Medications Generic Name Dose Route Start Last Admin Trade Name Freq PRN Reason Stop Dose Admin Acetaminophen 650 mg 11/22/18 13:48 11/23/18 20:52 Tylenol - PO 650 mg Q6H PRN Administration PAIN Amlodipine Besylate 5 mg 11/22/18 10:00 11/27/18 11:17 Norvasc - PO Not Given DAILY [facility] Bacitracin 1 applic 11/22/18 22:00 11/27/18 10:55 Bacitracin - TP Not Given BID [facility] Docusate Sodium 100 mg 11/22/18 13:22 11/24/18 21:48 Colace - PO 100 mg TID PRN Administration CONSTIPATION Ergocalciferol 50,000 unit 11/22/18 13:30 11/22/18 15:01 Drisdol - PO 50,000 unit Q7D [facility] Administration Fluticasone Propionate 2 spray 11/22/18 13:30 11/27/18 11:24 Flonase - NS Not Given DAILY [facility] Gabapentin 300 mg 11/22/18 01:45 11/27/18 11:07 Neurontin - PO Not Given BID [facility] Vancomycin HCl 1,500 mg/ 500 mls @ 250 mls/hr 11/24/18 14:00 11/26/18 13:58 Dextrose IVPB 250 mls/hr DAILY@1400 [facility] Administration Protocol Ceftriaxone Sodium 2 gm/ 100 mls @ 200 mls/hr 11/27/18 11:18 Dextrose IVPB DAILY [facility] Protocol Methadone HCl 40 mg/ Methadone 75 mg 11/23/18 06:00 11/27/18 05:38 HCl 30 mg/ Methadone HCl 5 mg PO Not Given DAILY@0600 [facility] Multivitamins/Minerals/Vitamin C 1 tab 11/22/18 13:30 11/27/18 11:07 Tab-A-Vit - PO Not Given DAILY [facility] Trazodone HCl 100 mg 11/22/18 01:45 11/26/18 23:26 Desyrel - PO 100 mg HS [facility] Administration ASSESSMENT/PLAN: 58 y.o. PMH HTN, HIV, OM s/p I&D 2017, IVDA (heroine & cocaine), on methadone, cirrhosis d/t HCV s/p HCV tx, thrombocytopenia preented for LLE edema found to have OM of left 1st digit. #Left 1st digit OM w/ LLE Cellulitis -OR today for LLE 1st digit amputation -MRI + for OM -Wound cx + polymicrobial -C/w Vanc, Ceftriaxone (day #4 abx started 11/24); vanc trough today (pending) -ID (Dr. Mcbride) on board -Podiatry (Dr. Kaiser) on board #Thrombocytopenia -129 today -No active bleeding #HIV -C/w HAART #Hx of Cirrhosis -Due to HCV -S/p treatment #Hx of IVDA (Heroin) -On Methadone 75mg daily #Hx of HTN, Controlled -c/w Amlodipine #FEN -No Standing Fluids -Replete Lytes PRN -NPO for OR today #PPx -DVT: SCDs Dispo: OR today Visit type - Emergency Visit Emergency Visit: No - New Patient This patient is new to me today: No - Critical Care Critical Care patient: No ATTENDING PHYSICIAN STATEMENT I saw and evaluated the patient. I reviewed the resident's note and discussed the case with the resident. I agree with the resident's findings and plan as documented. SUBJECTIVE: OBJECTIVE: ASSESSMENT AND PLAN:
[2018-11-27] MEDS ORDERED: DOCUSATE SODIUM 100 MG CAPSULE (FP) PO PRN (15:45)
[2018-11-27] MEDS ORDERED: METHADONE HCL 10 MG TABLET ONE (16:22)
[2018-11-27] MEDS ORDERED: METHADONE HCL 40 MG DISPERSABLE TABLET ONE (16:23)
[2018-11-27] MEDS ORDERED: METHADONE HCL 5 MG TABLET ONE (16:23)
[2018-11-27] MEDS: VANCOMYCIN HCL 1,500 MG in DEXTROSE 5%-WATER - 500 ML IVPB SCH (16:36)
--- NOTE | 2018-11-27 17:04 | PN ---
Teaching Attending Note Name of Resident: Courtney Mosqueda ATTENDING PHYSICIAN STATEMENT I saw and evaluated the patient. I reviewed the resident's note and discussed the case with the resident. I agree with the resident's findings and plan as documented. SUBJECTIVE: Left hallux discomfort. No fever/chills. OBJECTIVE: Afebrile, Hemodynamically Stable Last Vital Signs Temp Pulse Resp BP Pulse Ox 97.2 F L 54 L 16 119/58 L 100 11/27/18 15:30 11/27/18 15:30 11/27/18 15:30 11/27/18 15:30 11/27/18 15:30 HEENT - Atraumatic, Normocephalic. Heart - S1, S2, SM Lungs - clear to auscultation Abdomen - Soft, non-tender. Extremities L great toe dressed. No calf swelling/tenderness. Extremities well perfused. Finger clubbing. Laboratory Results - last 24 hr 11/27/18 11/27/18 11/27/18 06:00 06:00 06:20 WBC 4.0 RBC 4.50 Hgb 14.1 Hct 42.0 D MCV 93.3 MCH 31.4 MCHC 33.6 RDW 14.4 Plt Count 129 L D MPV 7.9 Absolute Neuts (auto) 1.6 Neutrophils % 40.2 L Lymphocytes % 44.7 H D Monocytes % 10.7 H Eosinophils % 3.9 Basophils % 0.5 Nucleated RBC % 0 Sodium 138 Potassium 4.2 Chloride 104 Carbon Dioxide 32 Anion Gap 3 L BUN 15.3 Creatinine 1.0 Est GFR (CKD-EPI)AfAm 94.39 Est GFR (CKD-EPI)NonAf 81.44 Random Glucose 87 Calcium 9.2 Phosphorus 4.1 Magnesium 2.3 Total Bilirubin 0.4 AST 65 H ALT 27 Alkaline Phosphatase 71 Total Protein 8.3 H Albumin 3.8 Blood Type B POSITIVE Antibody Screen Negative Current Medications Generic Name Dose Route Start Last Admin Trade Name Freq PRN Reason Stop Dose Admin Acetaminophen 650 mg 11/27/18 15:45 Tylenol - PO Q6H PRN PAIN Amlodipine Besylate 5 mg 11/28/18 10:00 Norvasc - PO DAILY [facility] Bacitracin 1 applic 11/27/18 22:00 Bacitracin - TP BID [facility] Docusate Sodium 100 mg 11/27/18 15:45 Colace - PO TID PRN CONSTIPATION Ergocalciferol 50,000 unit 11/29/18 10:00 Drisdol - PO Q7D [facility] Fluticasone Propionate 2 spray 11/28/18 10:00 Flonase - NS DAILY [facility] Gabapentin 300 mg 11/27/18 22:00 Neurontin - PO BID [facility] Ceftriaxone Sodium 2 gm/ 100 mls @ 200 mls/hr 11/28/18 10:00 Dextrose IVPB DAILY [facility] Protocol Vancomycin HCl 1,500 mg/ 500 mls @ 250 mls/hr 11/28/18 14:00 Dextrose IVPB DAILY@1400 [facility] Protocol Methadone HCl 40 mg/ Methadone 75 mg 11/27/18 16:30 11/27/18 16:29 HCl 30 mg/ Methadone HCl 5 mg PO 75 mg DAILY@0600 [facility] Administration Multivitamins/Minerals/Vitamin C 1 tab 11/28/18 10:00 Tab-A-Vit - PO DAILY [facility] Trazodone HCl 100 mg 11/27/18 22:00 Desyrel - PO [facility] Home Medications Medication Instructions Recorded Methadone [Dolophine -] 75 mg PO DAILY@0600 MDD 1 07/05/17 Acetaminophen [Tylenol .Regular 650 mg PO DAILY PRN #45 tablet 02/26/18 Strength -] Cane 1 each [facility] ASDIR #1 each 02/26/18 Ergocalciferol (Vitamin D2) 50,000 unit PO Q7D #4 capsule 06/11/18 [Vitamin D2] Amlodipine Besylate [Norvasc -] 5 mg PO DAILY #30 tablet 11/06/18 Emtricitab/Rilpiviri/Tenof Ala 1 each PO DAILY #30 tablet 11/06/18 [Odefsey Tablet] Multivitamins [Multivit ([facility] 1 tab PO DAILY #30 tab 11/06/18 Formulary)] Bacitracin - [Bacitracin Topical 1 applic TP BID 11/21/18 Ointment -] Docusate Sodium [Colace] 100 mg PO TID PRN 11/21/18 Fluticasone Prop 0.05% Nasal 1 - 2 spray NS DAILY 11/21/18 [Flonase -] Gabapentin 300 mg PO BID 11/21/18 traZODone HCL [Trazodone HCl] 100 mg PO HS 11/21/18 ASSESSMENT AND PLAN: 58 year old male with HIV (on HAART), Liver Cirrhosis secondary to Hepatitis C, Substance Abuse (Heroin) on Methadone, Hx of OM, presents with draining L Hallux ulcer. 1. L Hallux Cellulitis with Osteomyelitis of distal tuft. Wound Cx - polymicrobial Day 6 Ceftriaxone/Vanco Afebrile, Hemodynamically Stable Scheduled for OR today by Podiatry. ID following. 2. UTI - Urine Cx positive for Staph coag neg/Enterococcus On Ceftriaxone/Vancomycin as per ID 3. Thrombocytopenia - likely reactive, improving. 4. HIV on HAART - Continue. 5. Hx Heroin Use - on Methadone. 6. Cirrhosis sec to Hepatitis C - s/p Treatment. No evidence of decompensation. 7. HTN - Continue Amlodipine. DVT Px - Will start Heparin due to platelet improvement > 100
--- NOTE | 2018-11-27 17:24 | OP ---
Operative Note - Note: Operative Date: 11/27/18 Pre-Operative Diagnosis: left hallux osteomyelitis Operation: left hallux partial amputation Post-Operative Diagnosis: Same as Pre-op Surgeon: Bj Kaiser Anesthesia: Local, MAC Specimens Removed: left great toe bone and soft tissue Estimated Blood Loss (mls): 25 Operative Report Dictated: Yes
--- NOTE | 2018-11-27 20:35 | OP ---
DATE OF OPERATION: 11/27/2018 PREOPERATIVE DIAGNOSIS: Left great toe diabetic ulcer and osteomyelitis. POSTOPERATIVE DIAGNOSIS: Left great toe diabetic ulcer and osteomyelitis. PROCEDURE: Left great toe partial amputation. SURGEON: Bj Kaiser DPM MANAGER OF ENTERPRISE: None. ANESTHESIA: IV sedation with local. HEMOSTASIS: Pneumatic ankle tourniquet for about 9 minutes. ESTIMATED BLOOD LOSS: 25 mL. COMPLICATIONS: None. The patient was brought to the operating room and placed on the operating table in the supine position. Pneumatic ankle tourniquet was applied to the patient's left ankle and set to 250 mmHg. Following the induction of IV sedation, local anesthesia was achieved utilizing 10 mL of 2% lidocaine plain. The left foot was scrubbed, prepped and draped in the usual sterile fashion. Attention was directed to the right great toe, where a probing ulcer with sinus tract down to bone was visualized and appreciated at the distal tuft. We began by performing a fishmouth incision overlying the dorsal interphalangeal joint at the hallux. The incision was carried distally and plantarly to the ulcerated lesion of the distal toe. Upon incision, there were some bleeders identified. At this point, the tourniquet was inflated for a portion of time. Bleeders were cauterized and ligated as needed. Next, the distal aspect of the toe was disarticulated at the level of the interphalangeal joint. The distal aspect of the toe was removed and sent to Pathology for analysis. Soft tissue culture was obtained. Next, the periosteal structures were reflected from the head of the proximal phalanx of the hallux. The head of the proximal phalanx was resected using the sagittal saw. This was removed and portioned for bone culture and bone biopsy. The surgical site was copiously irrigated with sterile saline. I dropped the tourniquet prior to full closure to inspect for any bleeders and none were noted. The skin was coapted and maintained utilizing 3-0 nylon in a simple interrupted suture fashion. Following conclusion of the procedure, the surgical site was covered with Xeroform and a sterile compressive dressing was applied to the left foot consisting of sterile gauze, Kerlix, and an Shay wrap. The patient tolerated the procedure and anesthesia well without complications. He was transferred from the operating room to the recovery unit with vital signs stable and neurovascular intact to the left foot. ZACKARY TORRES/[id number] cc: [facility]
[2018-11-27] MEDS: traZODone HCL 50 MG TABLET (FP) PO SCH (22:35)
[2018-11-28] MEDS ORDERED: METHADONE HCL 10 MG TABLET ONE ×2 (05:35→05:55)
[2018-11-28] MEDS ORDERED: METHADONE HCL 5 MG TABLET ONE ×2 (05:35→05:56)
[2018-11-28] MEDS ORDERED: METHADONE HCL 40 MG DISPERSABLE TABLET ONE ×2 (05:35→05:56)
[2018-11-28] MEDS ORDERED: DEXTROSE 5%-WATER 100 ML IVPB ONE (08:51)
[2018-11-28 09:00] LABS: BASO % 0.7 % (0-2.0); HEMATOCRIT 39.4 % (35.4-49); HEMOGLOBIN 13.3 GM/dL (11.7-16.9); LYMPH % 40.2 % (8-40); MCH 31.4 pg (25.7-33.7); MCHC 33.9 g/dl (32.0-35.9); MEAN CELL VOLUME 92.7 fl (80-96); MEAN PLT VOLUME 7.9 fl (7.5-11.1); NEUT % 44.1 % (42.8-82.8); PLATELET COUNT 125 K/MM3 (134-434); RBC 4.25 M/mm3 (4.00-5.60); WHITE BLOOD COUNT 4.3 K/mm3 (4.0-10.0)
[2018-11-28 09:34] LABS: ALBUMIN 3.7 g/dl (3.4-5.0); BILIRUBIN,TOTAL 0.5 mg/dL (0.2-1); BLOOD UREA NITROGEN 19.1 mg/dL (7-18); CALCIUM 8.8 mg/dL (8.5-10.1); MAGNESIUM 2.3 mg/dL (1.8-2.4); PHOSPHOROUS 3.7 mg/dL (2.5-4.9); TOT PROT 8.2 g/dl (6.4-8.2)
[2018-11-28] MEDS: MULTIVITAMINS (DAILY MVI) TABLET (FP) PO SCH (10:05)
[2018-11-28] MEDS: GABAPENTIN 300 MG CAPSULE (FP) PO SCH ×2 (10:06→21:13)
[2018-11-28] MEDS: BACITRACIN 15 GM TUBE TOPICAL OINTMENT TP SCH ×2 (10:06→21:18)
[2018-11-28] MEDS: amLODIPine BESYLATE 5 MG TABLET (FP) PO SCH (10:06)
[2018-11-28] MEDS: FLUTICASONE PROP 0.05% 16 GM NASAL SPRAY NS SCH (10:07)
[2018-11-28] MEDS: EMTRICITAB/RILPIVIRI/TENOF ALA (ODEFSEY) TABLET PO SCH (10:08)
[2018-11-28] MEDS: CEFTRIAXONE 2 GM in DEXTROSE 5%-WATER 100 ML IVPB SCH (10:08)
--- NOTE | 2018-11-28 12:40 | PN ---
Progress Note, Physician History of Present Illness: patient stable no new issues post op - Current Medication List Current Medications: Active Medications Acetaminophen (Tylenol -) 650 mg PO Q6H PRN PRN Reason: PAIN Amlodipine Besylate (Norvasc -) 5 mg PO DAILY [facility] Last Admin: 11/28/18 10:06 Dose: 5 mg Bacitracin (Bacitracin -) 1 applic TP BID [facility] Last Admin: 11/28/18 10:06 Dose: Not Given Docusate Sodium (Colace -) 100 mg PO TID PRN PRN Reason: CONSTIPATION Ergocalciferol (Drisdol -) 50,000 unit PO Q7D [facility] Fluticasone Propionate (Flonase -) 2 spray NS DAILY [facility] Last Admin: 11/28/18 10:07 Dose: 2 spray Gabapentin (Neurontin -) 300 mg PO BID [facility] Last Admin: 11/28/18 10:06 Dose: 300 mg Ceftriaxone Sodium 2 gm/ (Dextrose) 100 mls @ 200 mls/hr IVPB DAILY [facility]; Protocol Last Admin: 11/28/18 10:08 Dose: 200 mls/hr Vancomycin HCl 1,500 mg/ (Dextrose) 500 mls @ 250 mls/hr IVPB DAILY@1400 [facility]; Protocol Methadone HCl 40 mg/ Methadone (HCl 30 mg/ Methadone HCl 5 mg) 75 mg PO DAILY@ 0600 [facility] Last Admin: 11/27/18 16:29 Dose: 75 mg Multivitamins/Minerals/Vitamin C (Tab-A-Vit -) 1 tab PO DAILY [facility] Last Admin: 11/28/18 10:05 Dose: 1 tab Trazodone HCl (Desyrel -) 100 mg PO HS [facility] Last Admin: 11/27/18 22:35 Dose: 100 mg - Objective Vital Signs: Vital Signs Temperature 98.6 F 11/28/18 10:00 Pulse Rate 75 11/28/18 10:00 Respiratory Rate 20 11/28/18 10:00 Blood Pressure 122/72 11/28/18 10:00 O2 Sat by Pulse Oximetry (%) 97 11/28/18 09:00 Constitutional: Yes: No Distress, Calm Cardiovascular: Yes: Regular Rate and Rhythm Respiratory: Yes: Regular, CTA Bilaterally Gastrointestinal: Yes: Normal Bowel Sounds, Soft Musculoskeletal: Yes: WNL Extremities: Yes: Other Wound/Incision: Yes: Dressing Dry and Intact Neurological: Yes: Alert, Oriented Psychiatric: Yes: Alert, Oriented Labs: CBC, BMP 11/28/18 08:40 11/28/18 07:40 INR, PTT INR 1.15 (0.83-1.09) H 11/21/18 15:37 Assessment/Plan 58M w/ PMH of HTN, HIV, h/o heroin, methadone usage, sciatica, h/p HCV s/p tx, cirrhosis, thrombocytopenia presents to [facility] with complaint of LLE swelling x2d and erythema x1d w/a fever. Left leg swelling possibly 2/2 to cellulitis, Left Leg Swelling r/o osteo of the toe HIV Cirrhosis plan continue current mgmt surgery today await for cx reports rest as per the team
--- NOTE | 2018-11-28 13:52 | PN ---
Progress Note (short form) - Note Progress Note: Anesthesia postop note 58 y/o M s/p MAC for toe amputation POD#!, vss, aaox3, no complaints. No anesthesia complications.
[2018-11-28] MEDS ORDERED: VANCOMYCIN HCL 1,500 MG in DEXTROSE 5%-WATER - 500 ML IVPB SCH (14:00)
[2018-11-28 14:09] VITALS: BMI 28.9
[2018-11-28] MEDS: VANCOMYCIN 1 GM in D5W (PRE-DOCKED) 1,000 MG/250 ML IVPB SCH (16:59)
--- NOTE | 2018-11-28 17:33 | PN ---
Progress Note (short form) - Note Progress Note: 1yo M with PMH of HIV , osteomyelitis s/p debridement in 2017, HTN, depression, heroin abuse (on methadone), anxiety, sciatica, HCV sent by the [facility] for evaluation of an ulcer on his left foot, LLE swelling and redness. Now s/p distal symes amputation of hte hallux. Denies any complaints. Denies any f/c/n/v /sob. O: Left hallux with sutures intact, soaked sanguine drainage noted throughout the dressing, no erythema, mild edema, no purulence, no streaking, no signs of active infection, sutures intact, no dehiscence notd at this time A: s/p distal symes amputation left hallux P: Evaluated and reviewed healing well chief [facility] wbat to heel with surgical shoe f/u cultures if negative; pod standpoint stable for d/c can f/u with Dr. Kaiser in wound care center after d/c keep dressing c/d/i.
--- NOTE | 2018-11-28 17:34 | PN ---
Physical Exam: SUBJECTIVE: Patient seen and examined at bedside. In no discomfort. Denies CP/ SOB/ feevrs/ chills/ N/V/D. OBJECTIVE: Vital Signs Period Temp Pulse Resp BP Sys/Forman Pulse Ox Last 24 Hr 97.6 F-98.6 F 66-75 20-20 106-128/58-90 97-97 GENERAL: AOx3, in no acute distress. LUNGS: CTABL. No incr work of breathing. No wheezing noted HEART: Regular rate and rhythm, S1, S2 heard. No murmurs appreciated. ABDOMEN: Soft, nontender, nondistended, normoactive bowel sounds. No masses palpated. EXTREMITIES: LLE 1+ edema, erythematous, anterior cellulitis present. LLE s/p 1st digit amputation. Laboratory Results - last 24 hr Active Medications Current Medications Acetaminophen (Tylenol -) 650 mg PO Q6H PRN PRN Reason: PAIN Acetaminophen/Codeine Phosphate (Tylenol # 3 -) 1 tab PO Q12H PRN PRN Reason: PAIN LEVEL 6-10 Amlodipine Besylate (Norvasc -) 5 mg PO DAILY [facility] Last Admin: 11/28/18 10:06 Dose: 5 mg Bacitracin (Bacitracin -) 1 applic TP BID [facility] Last Admin: 11/28/18 10:06 Dose: Not Given Docusate Sodium (Colace -) 100 mg PO TID PRN PRN Reason: CONSTIPATION Ergocalciferol (Drisdol -) 50,000 unit PO Q7D [facility] Fluticasone Propionate (Flonase -) 2 spray NS DAILY [facility] Last Admin: 11/28/18 10:07 Dose: 2 spray Gabapentin (Neurontin -) 300 mg PO BID [facility] Last Admin: 11/28/18 10:06 Dose: 300 mg Ceftriaxone Sodium 2 gm/ (Dextrose) 100 mls @ 200 mls/hr IVPB DAILY [facility]; Protocol Last Admin: 11/28/18 10:08 Dose: 200 mls/hr Methadone HCl 40 mg/ Methadone (HCl 30 mg/ Methadone HCl 5 mg) 75 mg PO DAILY@ 0600 [facility] Last Admin: 11/27/18 16:29 Dose: 75 mg Multivitamins/Minerals/Vitamin C (Tab-A-Vit -) 1 tab PO DAILY [facility] Last Admin: 11/28/18 10:05 Dose: 1 tab Trazodone HCl (Desyrel -) 100 mg PO HS [facility] Last Admin: 11/27/18 22:35 Dose: 100 mg Vancomycin HCl (Vancomycin (Pre-Docked)) 1,000 mg IVPB BID@0300,1500 [facility] Last Admin: 11/28/18 16:59 Dose: 1,000 mg ASSESSMENT/PLAN: 58 y.o. PMH HTN, HIV, OM s/p I&D 2017, IVDA (heroine & cocaine), on methadone, cirrhosis d/t HCV s/p HCV tx, thrombocytopenia preented for LLE edema found to have OM of left 1st digit, s/p amputation. #Left 1st digit OM w/ LLE Cellulitis -S/p LLE 1st digit amputation -F/u Wound cx sent from [place] -C/w Vanc, Ceftriaxone (day #5 abx started 11/24); vanc trough 8.3 -ID (Dr. Mcbride) on board- f/u recs once wound cx return -Podiatry (Dr. Kaiser) on board #Thrombocytopenia -125 today -No active bleeds #HIV -C/w HAART #Hx of Cirrhosis -Due to HCV -S/p treatment #Hx of IVDA (Heroin) -On Methadone 75mg daily #Hx of HTN, Controlled -c/w Amlodipine #FEN -No Standing Fluids -Replete Lytes PRN -Diabetic diet #DVT PPx -SCDs Visit type - Emergency Visit Emergency Visit: No - New Patient This patient is new to me today: No - Critical Care Critical Care patient: No ATTENDING PHYSICIAN STATEMENT I saw and evaluated the patient. I reviewed the resident's note and discussed the case with the resident. I agree with the resident's findings and plan as documented. SUBJECTIVE: OBJECTIVE: ASSESSMENT AND PLAN:
--- NOTE | 2018-11-28 19:14 | PN ---
Teaching Attending Note Name of Resident: Courtney Mosqueda ATTENDING PHYSICIAN STATEMENT I saw and evaluated the patient. I reviewed the resident's note and discussed the case with the resident. I agree with the resident's findings and plan as documented. SUBJECTIVE: Left hallux discomfort s/p Surgery. No fever/chills. OBJECTIVE: Afebrile, Hemodynamically Stable Last Vital Signs Temp Pulse Resp BP Pulse Ox 98.1 F 70 20 140/68 97 11/28/18 16:30 11/28/18 16:30 11/28/18 16:30 11/28/18 16:30 11/28/18 09:00 Heart - S1, S2, SM Lungs - clear to auscultation Abdomen - Soft, non-tender. Extremities L great toe dressed. No calf swelling/tenderness. Extremities well perfused. Finger clubbing. Laboratory Results - last 24 hr 11/28/18 11/28/18 11/28/18 07:40 08:40 12:58 WBC 4.3 RBC 4.25 Hgb 13.3 Hct 39.4 MCV 92.7 MCH 31.4 MCHC 33.9 RDW 14.0 Plt Count 125 L MPV 7.9 Absolute Neuts (auto) 1.9 Neutrophils % 44.1 Lymphocytes % 40.2 H Monocytes % 11.0 H Eosinophils % 4.0 Basophils % 0.7 Nucleated RBC % 0 Sodium 139 Potassium 4.0 Chloride 105 Carbon Dioxide 28 Anion Gap 6 L BUN 19.1 H Creatinine 1.0 Est GFR (CKD-EPI)AfAm 94.39 Est GFR (CKD-EPI)NonAf 81.44 Random Glucose 80 Calcium 8.8 Phosphorus 3.7 Magnesium 2.3 Total Bilirubin 0.5 AST 65 H ALT 28 Alkaline Phosphatase 70 Total Protein 8.2 Albumin 3.7 Vancomycin Pre-Dose 8.3 L Current Medications Generic Name Dose Route Start Last Admin Trade Name Freq PRN Reason Stop Dose Admin Acetaminophen 650 mg 11/27/18 15:45 Tylenol - PO Q6H PRN PAIN Acetaminophen/Codeine Phosphate 1 tab 11/28/18 16:13 Tylenol # 3 - PO Q12H PRN PAIN LEVEL 6-10 Amlodipine Besylate 5 mg 11/28/18 10:00 11/28/18 10:06 Norvasc - PO 5 mg DAILY [facility] Administration Bacitracin 1 applic 11/27/18 22:00 11/28/18 10:06 Bacitracin - TP Not Given BID [facility] Docusate Sodium 100 mg 11/27/18 15:45 Colace - PO TID PRN CONSTIPATION Ergocalciferol 50,000 unit 11/29/18 10:00 Drisdol - PO Q7D [facility] Fluticasone Propionate 2 spray 11/28/18 10:00 11/28/18 10:07 Flonase - NS 2 spray DAILY [facility] Administration Gabapentin 300 mg 11/27/18 22:00 11/28/18 10:06 Neurontin - PO 300 mg BID [facility] Administration Ceftriaxone Sodium 2 gm/ 100 mls @ 200 mls/hr 11/28/18 10:00 11/28/18 10:08 Dextrose IVPB 200 mls/hr DAILY [facility] Administration Protocol Methadone HCl 40 mg/ Methadone 75 mg 11/27/18 16:30 11/27/18 16:29 HCl 30 mg/ Methadone HCl 5 mg PO 75 mg DAILY@0600 [facility] Administration Multivitamins/Minerals/Vitamin C 1 tab 11/28/18 10:00 11/28/18 10:05 Tab-A-Vit - PO 1 tab DAILY [facility] Administration Trazodone HCl 100 mg 11/27/18 22:00 11/27/18 22:35 Desyrel - PO 100 mg HS [facility] Administration Vancomycin HCl 1,000 mg 11/28/18 15:00 11/28/18 16:59 Vancomycin (Pre-Docked) IVPB 1,000 mg BID@0300,1500 [facility] Administration ASSESSMENT AND PLAN: 58 year old male with HIV (on HAART), Liver Cirrhosis secondary to Hepatitis C, Substance Abuse (Heroin) on Methadone, Hx of OM, presents with draining L Hallux ulcer. 1. L Hallux Cellulitis with Osteomyelitis of distal tuft. POD 1 s/p L great toe partial amputation Wound Cx - polymicrobial Surgical Cx pending. Day 7 Ceftriaxone/Vanco Afebrile, Hemodynamically Stable ID following. 2. UTI - Urine Cx positive for Staph coag neg/Enterococcus On Ceftriaxone/Vancomycin as per ID 3. Thrombocytopenia - likely reactive, improving. 4. HIV on HAART - Continue. 5. Hx Heroin Use - on Methadone. 6. Cirrhosis sec to Hepatitis C - s/p Treatment. No evidence of decompensation. 7. HTN - Continue Amlodipine. DVT Px - Heparin SQ
[2018-11-28] MEDS: HEPARIN NA (PORCINE) 5,000 UNITS/ML 1ML VIAL SQ SCH (21:13)
[2018-11-28] MEDS: traZODone HCL 50 MG TABLET (FP) PO SCH (21:13)
[2018-11-29] MEDS: VANCOMYCIN 1 GM in D5W (PRE-DOCKED) 1,000 MG/250 ML IVPB SCH (03:03)
[2018-11-29] MEDS ORDERED: METHADONE HCL 10 MG TABLET ONE (05:52)
[2018-11-29] MEDS ORDERED: METHADONE HCL 5 MG TABLET ONE (05:53)
[2018-11-29] MEDS ORDERED: METHADONE HCL 40 MG DISPERSABLE TABLET ONE (05:54)
[2018-11-29] MEDS: HEPARIN NA (PORCINE) 5,000 UNITS/ML 1ML VIAL SQ SCH ×3 (05:59→21:37)
[2018-11-29] MEDS: METHADONE 40 MG, METHADONE 30 MG, METHADONE 5 MG PO SCH (06:00)
[2018-11-29 08:13] LABS: ALBUMIN 3.5 g/dl (3.4-5.0); BILIRUBIN,TOTAL 0.7 mg/dL (0.2-1); BLOOD UREA NITROGEN 18.1 mg/dL (7-18); CALCIUM 8.5 mg/dL (8.5-10.1); MAGNESIUM 2.2 mg/dL (1.8-2.4); PHOSPHOROUS 3.2 mg/dL (2.5-4.9); POTASSIUM 3.6 mmol/L (3.5-5.1); TOT PROT 7.7 g/dl (6.4-8.2)
[2018-11-29] MEDS ORDERED: DEXTROSE 5%-WATER 100 ML IVPB ONE (08:18)
[2018-11-29 08:20] LABS: BASO % 0.6 % (0-2.0); EOS % 3.7 % (0-4.5); HEMATOCRIT 37.5 % (35.4-49); HEMOGLOBIN 12.5 GM/dL (11.7-16.9); LYMPH % 41.7 % (8-40); MCH 30.7 pg (25.7-33.7); MCHC 33.3 g/dl (32.0-35.9); MEAN CELL VOLUME 92.1 fl (80-96); MONO % 13.3 % (3.8-10.2); NEUT % 40.7 % (42.8-82.8); RBC 4.07 M/mm3 (4.00-5.60)
[2018-11-29 09:05] LABS: PLATELET COUNT 105 K/MM3 (134-434)
[2018-11-29] MEDS: BACITRACIN 15 GM TUBE TOPICAL OINTMENT TP SCH ×2 (09:36→21:38)
[2018-11-29] MEDS: amLODIPine BESYLATE 5 MG TABLET (FP) PO SCH (09:38)
[2018-11-29] MEDS: GABAPENTIN 300 MG CAPSULE (FP) PO SCH ×2 (09:39→21:37)
[2018-11-29] MEDS: FLUTICASONE PROP 0.05% 16 GM NASAL SPRAY NS SCH (09:39)
[2018-11-29] MEDS: MULTIVITAMINS (DAILY MVI) TABLET (FP) PO SCH (09:40)
[2018-11-29] MEDS: CEFTRIAXONE 2 GM in DEXTROSE 5%-WATER 100 ML IVPB SCH (09:41)
[2018-11-29] MEDS ORDERED: ERGOCALCIFEROL (VIT D2) 50,000 UNIT (1.25 MG) CAPSULE PO SCH (10:00)
[2018-11-29] MEDS: EMTRICITAB/RILPIVIRI/TENOF ALA (ODEFSEY) TABLET PO SCH (11:33)
--- NOTE | 2018-11-29 12:59 | PN ---
Progress Note, Physician History of Present Illness: patient stable no new issues post op - Current Medication List Current Medications: Active Medications Acetaminophen (Tylenol -) 650 mg PO Q6H PRN PRN Reason: PAIN Acetaminophen/Codeine Phosphate (Tylenol # 3 -) 1 tab PO Q12H PRN PRN Reason: PAIN LEVEL 6-10 Amlodipine Besylate (Norvasc -) 5 mg PO DAILY [facility] Last Admin: 11/29/18 09:38 Dose: 5 mg Bacitracin (Bacitracin -) 1 applic TP BID [facility] Last Admin: 11/29/18 09:36 Dose: Not Given Docusate Sodium (Colace -) 100 mg PO TID PRN PRN Reason: CONSTIPATION Ergocalciferol (Drisdol -) 50,000 unit PO Q7D [facility] Last Admin: 11/29/18 09:39 Dose: 50,000 unit Fluticasone Propionate (Flonase -) 2 spray NS DAILY [facility] Last Admin: 11/29/18 09:39 Dose: 2 spray Gabapentin (Neurontin -) 300 mg PO BID [facility] Last Admin: 11/29/18 09:39 Dose: 300 mg Heparin Sodium (Porcine) (Heparin -) 5,000 unit SQ TID [facility] Last Admin: 11/29/18 05:59 Dose: 5,000 unit Ceftriaxone Sodium 2 gm/ (Dextrose) 100 mls @ 200 mls/hr IVPB DAILY [facility]; Protocol Last Admin: 11/29/18 09:41 Dose: 200 mls/hr Methadone HCl 40 mg/ Methadone (HCl 30 mg/ Methadone HCl 5 mg) 75 mg PO DAILY@ 0600 [facility] Last Admin: 11/29/18 06:00 Dose: 75 mg Multivitamins/Minerals/Vitamin C (Tab-A-Vit -) 1 tab PO DAILY [facility] Last Admin: 11/29/18 09:40 Dose: 1 tab Trazodone HCl (Desyrel -) 100 mg PO HS [facility] Last Admin: 11/28/18 21:13 Dose: 100 mg - Objective Vital Signs: Vital Signs Temperature 98.1 F 11/29/18 05:49 Pulse Rate 65 11/29/18 05:49 Respiratory Rate 20 11/29/18 08:55 Blood Pressure 114/69 11/29/18 05:49 O2 Sat by Pulse Oximetry (%) 97 11/29/18 08:55 Constitutional: Yes: No Distress, Calm Cardiovascular: Yes: S1, S2 Respiratory: Yes: Regular, CTA Bilaterally Gastrointestinal: Yes: Normal Bowel Sounds, Soft Musculoskeletal: Yes: WNL Extremities: Yes: WNL Neurological: Yes: Alert, Oriented Labs: CBC, BMP 11/29/18 06:45 11/29/18 06:45 INR, PTT INR 1.15 (0.83-1.09) H 11/21/18 15:37 Assessment/Plan 58M w/ PMH of HTN, HIV, h/o heroin, methadone usage, sciatica, h/p HCV s/p tx, cirrhosis, thrombocytopenia presents to [facility] with complaint of LLE swelling x2d and erythema x1d w/a fever. Left leg swelling possibly 2/2 to cellulitis, Left Leg Swelling r/o osteo of the toe HIV Cirrhosis plan will hold off on vanco for now conitnue ceftriaxone await for finalization of cx wound care rest as per the team
--- NOTE | 2018-11-29 14:13 | PN ---
Physical Exam: SUBJECTIVE: Patient seen and examined. No complaints at this time. Tolerating PO diet. Ambulating well. OBJECTIVE: Vital Signs Period Temp Pulse Resp BP Sys/Forman Pulse Ox Last 24 Hr 98.1 F-98.4 F 62-71 20-20 114-140/68-78 97-97 GENERAL: The patient is awake, alert, and fully oriented, in no acute distress. LUNGS: CTABL. No incr work of breathing. No wheezing noted HEART: Regular rate and rhythm, S1, S2 heard. No murmurs appreciated. ABDOMEN: Soft, nontender, nondistended, normoactive bowel sounds. No masses palpated. EXTREMITIES: LLE 1+ edema, erythematous, anterior cellulitis present. LLE s/p 1st digit amputation. Finger clubbing noted b/l. Laboratory Results - last 24 hr Laboratory Last Values WBC 4.0 K/mm3 (4.0-10.0) 11/29/18 06:45 RBC 4.07 M/mm3 (4.00-5.60) 11/29/18 06:45 Hgb 12.5 GM/dL (11.7-16.9) 11/29/18 06:45 Hct 37.5 % (35.4-49) 11/29/18 06:45 MCV 92.1 fl (80-96) 11/29/18 06:45 MCH 30.7 pg (25.7-33.7) 11/29/18 06:45 MCHC 33.3 g/dl (32.0-35.9) 11/29/18 06:45 RDW 14.0 % (11.9-15.9) 11/29/18 06:45 Plt Count 105 K/MM3 (134-434) L 11/29/18 06:45 MPV 8.0 fl (7.5-11.1) 11/29/18 06:45 Absolute Neuts (auto) 1.6 K/mm3 (1.5-8.0) 11/29/18 06:45 Neutrophils % 40.7 % (42.8-82.8) L 11/29/18 06:45 Lymphocytes % 41.7 % (8-40) H 11/29/18 06:45 Monocytes % 13.3 % (3.8-10.2) H 11/29/18 06:45 Eosinophils % 3.7 % (0-4.5) 11/29/18 06:45 Basophils % 0.6 % (0-2.0) 11/29/18 06:45 Nucleated RBC % 0 % (0-0) 11/29/18 06:45 Platelet Estimate Decreased 11/21/18 15:37 Platelet Comment No clumping noted 11/21/18 15:37 ESR 36 mm/hr (0-20) H 11/21/18 15:37 PT with INR 13.60 SEC (9.7-13.0) H 11/21/18 15:37 INR 1.15 (0.83-1.09) H 11/21/18 15:37 PTT (Actin FS) 36.6 SECONDS (25.2-36.5) H 11/21/18 15:37 Sodium 139 mmol/L (136-145) 11/29/18 06:45 Potassium 3.6 mmol/L (3.5-5.1) 11/29/18 06:45 Chloride 104 mmol/L (98-107) 11/29/18 06:45 Carbon Dioxide 30 mmol/L (21-32) 11/29/18 06:45 Anion Gap 5 MMOL/L (8-16) L 11/29/18 06:45 BUN 18.1 mg/dL (7-18) H 11/29/18 06:45 Creatinine 1.0 mg/dL (0.55-1.3) 11/29/18 06:45 Est GFR (CKD-EPI)AfAm 94.39 11/29/18 06:45 Est GFR (CKD-EPI)NonAf 81.44 11/29/18 06:45 Random Glucose 93 mg/dL (74-106) 11/29/18 06:45 Hemoglobin A1c % 5.7 % (4.2-6.3) 11/22/18 06:44 Calcium 8.5 mg/dL (8.5-10.1) 11/29/18 06:45 Phosphorus 3.2 mg/dL (2.5-4.9) 11/29/18 06:45 Magnesium 2.2 mg/dL (1.8-2.4) 11/29/18 06:45 Total Bilirubin 0.7 mg/dL (0.2-1) 11/29/18 06:45 AST 63 U/L (15-37) H 11/29/18 06:45 ALT 26 U/L (13-61) 11/29/18 06:45 Alkaline Phosphatase 67 U/L (45-117) 11/29/18 06:45 C-Reactive Protein 9.3 MG/DL (0.00-0.3) H 11/21/18 15:37 Total Protein 7.7 g/dl (6.4-8.2) 11/29/18 06:45 Albumin 3.5 g/dl (3.4-5.0) 11/29/18 06:45 Urine Color Yellow 11/21/18 15:41 Urine Appearance Clear 11/21/18 15:41 Urine pH 6.0 (5.0-8.0) 11/21/18 15:41 Ur Specific [place] 1.016 (1.010-1.035) 11/21/18 15:41 Urine Protein Negative (NEGATIVE) 11/21/18 15:41 Urine Glucose (UA) Negative (NEGATIVE) 11/21/18 15:41 Urine Ketones Negative (NEGATIVE) 11/21/18 15:41 Urine Blood 1+ (NEGATIVE) H 11/21/18 15:41 Urine Nitrite Negative (NEGATIVE) 11/21/18 15:41 Urine Bilirubin Negative (NEGATIVE) 11/21/18 15:41 Urine Urobilinogen 4.0 e.u/dl mg/dL (0.2-1.0) 11/21/18 15:41 Ur Leukocyte Esterase Negative (NEGATIVE) 11/21/18 15:41 Urine WBC (Auto) 0 /hpf (0-5) 11/21/18 15:41 Urine RBC (Auto) 10 /hpf (0-4) 11/21/18 15:41 Urine Casts (Auto) 0 /lpf (0-8) 11/21/18 15:41 U Epithel Cells (Auto) 0.1 /HPF (0-5/HPF) 11/21/18 15:41 Urine Bacteria (Auto) 2.9 /hpf (NEGATIVE) 11/21/18 15:41 Vancomycin Pre-Dose 8.3 ug/ml (18-26) L 11/28/18 12:58 Blood Type B POSITIVE 11/27/18 06:20 Antibody Screen Negative 11/27/18 06:20 Active Medications Current Medications Acetaminophen (Tylenol -) 650 mg PO Q6H PRN PRN Reason: PAIN Acetaminophen/Codeine Phosphate (Tylenol # 3 -) 1 tab PO Q12H PRN PRN Reason: PAIN LEVEL 6-10 Amlodipine Besylate (Norvasc -) 5 mg PO DAILY [facility] Last Admin: 11/29/18 09:38 Dose: 5 mg Bacitracin (Bacitracin -) 1 applic TP BID [facility] Last Admin: 11/29/18 09:36 Dose: Not Given Docusate Sodium (Colace -) 100 mg PO TID PRN PRN Reason: CONSTIPATION Ergocalciferol (Drisdol -) 50,000 unit PO Q7D [facility] Last Admin: 11/29/18 09:39 Dose: 50,000 unit Fluticasone Propionate (Flonase -) 2 spray NS DAILY [facility] Last Admin: 11/29/18 09:39 Dose: 2 spray Gabapentin (Neurontin -) 300 mg PO BID [facility] Last Admin: 11/29/18 09:39 Dose: 300 mg Heparin Sodium (Porcine) (Heparin -) 5,000 unit SQ TID [facility] Last Admin: 11/29/18 05:59 Dose: 5,000 unit Ceftriaxone Sodium 2 gm/ (Dextrose) 100 mls @ 200 mls/hr IVPB DAILY [facility]; Protocol Last Admin: 11/29/18 09:41 Dose: 200 mls/hr Methadone HCl 40 mg/ Methadone (HCl 30 mg/ Methadone HCl 5 mg) 75 mg PO DAILY@ 0600 [facility] Last Admin: 11/29/18 06:00 Dose: 75 mg Multivitamins/Minerals/Vitamin C (Tab-A-Vit -) 1 tab PO DAILY [facility] Last Admin: 11/29/18 09:40 Dose: 1 tab Trazodone HCl (Desyrel -) 100 mg PO HS [facility] Last Admin: 11/28/18 21:13 Dose: 100 mg ASSESSMENT/PLAN: 58 y.o. PMH HTN, HIV, OM s/p I&D 2017, IVDA (heroine & cocaine), on methadone, cirrhosis d/t HCV s/p HCV tx, thrombocytopenia presented for LLE edema found to have OM of left 1st digit, s/p amputation. #Left 1st digit OM w/ LLE Cellulitis -S/p LLE 1st digit amputation -F/u Wound cx sent from [place] -Bone cx: growing [id number] -C/w Vanc, Ceftriaxone (day #6 abx started 11/24) -ID (Dr. Mcbride) on board- f/u recs once wound cx return -Podiatry (Dr. Kaiser) on board #Pain control -Tylenol w/codeine PRN BID -Tylenol 650 q6h PRN #Thrombocytopenia -105 today -No active bleeds #HIV -C/w HAART #Hx of Cirrhosis -Due to HCV -S/p treatment #Hx of IVDA (Heroin) -On Methadone 75mg daily #Hx of HTN, Controlled -c/w Amlodipine #FEN -No Standing Fluids -Replete Lytes PRN -Diabetic diet #DVT PPx -SCDs Visit type - Emergency Visit Emergency Visit: No - New Patient This patient is new to me today: No - Critical Care Critical Care patient: No ATTENDING PHYSICIAN STATEMENT I saw and evaluated the patient. I reviewed the resident's note and discussed the case with the resident. I agree with the resident's findings and plan as documented. SUBJECTIVE: OBJECTIVE: ASSESSMENT AND PLAN:
--- NOTE | 2018-11-29 17:36 | PN ---
Teaching Attending Note Name of Resident: Courtney Mosqueda ATTENDING PHYSICIAN STATEMENT I saw and evaluated the patient. I reviewed the resident's note and discussed the case with the resident. I agree with the resident's findings and plan as documented. SUBJECTIVE: tolerating Left hallux discomfort s/p Surgery. No fever/chills. OBJECTIVE: Afebrile, Hemodynamically Stable Last Vital Signs Temp Pulse Resp BP Pulse Ox 98.5 F 70 20 136/63 97 11/29/18 14:00 11/29/18 14:00 11/29/18 14:00 11/29/18 14:00 11/29/18 08:55 Heart - S1, S2, SM Lungs - clear to auscultation Abdomen - Soft, non-tender. Extremities L great toe dressed. No calf swelling/tenderness. Extremities well perfused. Finger clubbing. Laboratory Results - last 24 hr 11/29/18 11/29/18 06:45 06:45 WBC 4.0 RBC 4.07 Hgb 12.5 Hct 37.5 MCV 92.1 MCH 30.7 MCHC 33.3 RDW 14.0 Plt Count 105 L MPV 8.0 Absolute Neuts (auto) 1.6 Neutrophils % 40.7 L Lymphocytes % 41.7 H Monocytes % 13.3 H Eosinophils % 3.7 Basophils % 0.6 Nucleated RBC % 0 Sodium 139 Potassium 3.6 Chloride 104 Carbon Dioxide 30 Anion Gap 5 L BUN 18.1 H Creatinine 1.0 Est GFR (CKD-EPI)AfAm 94.39 Est GFR (CKD-EPI)NonAf 81.44 Random Glucose 93 Calcium 8.5 Phosphorus 3.2 Magnesium 2.2 Total Bilirubin 0.7 AST 63 H ALT 26 Alkaline Phosphatase 67 Total Protein 7.7 Albumin 3.5 Current Medications Generic Name Dose Route Start Last Admin Trade Name Freq PRN Reason Stop Dose Admin Acetaminophen 650 mg 11/27/18 15:45 Tylenol - PO Q6H PRN PAIN Acetaminophen/Codeine Phosphate 1 tab 11/28/18 16:13 Tylenol # 3 - PO Q12H PRN PAIN LEVEL 6-10 Amlodipine Besylate 5 mg 11/28/18 10:00 11/29/18 09:38 Norvasc - PO 5 mg DAILY HAN Administration Bacitracin 1 applic 11/27/18 22:00 11/29/18 09:36 Bacitracin - TP Not Given BID HAN Docusate Sodium 100 mg 11/27/18 15:45 Colace - PO TID PRN CONSTIPATION Ergocalciferol 50,000 unit 11/29/18 10:00 11/29/18 09:39 Drisdol - PO 50,000 unit Q7D HAN Administration Fluticasone Propionate 2 spray 11/28/18 10:00 11/29/18 09:39 Flonase - NS 2 spray DAILY HAN Administration Gabapentin 300 mg 11/27/18 22:00 11/29/18 09:39 Neurontin - PO 300 mg BID HAN Administration Heparin Sodium (Porcine) 5,000 unit 11/28/18 22:00 11/29/18 14:31 Heparin - SQ 5,000 unit TID HAN Administration Ceftriaxone Sodium 2 gm/ 100 mls @ 200 mls/hr 11/28/18 10:00 11/29/18 09:41 Dextrose IVPB 200 mls/hr DAILY HAN Administration Protocol Methadone HCl 40 mg/ Methadone 75 mg 11/27/18 16:30 11/29/18 06:00 HCl 30 mg/ Methadone HCl 5 mg PO 75 mg DAILY@0600 HAN Administration Multivitamins/Minerals/Vitamin C 1 tab 11/28/18 10:00 11/29/18 09:40 Tab-A-Vit - PO 1 tab DAILY HAN Administration Trazodone HCl 100 mg 11/27/18 22:00 11/28/18 21:13 Desyrel - PO 100 mg HS HAN Administration ASSESSMENT AND PLAN: 58 year old male with HIV (on HAART), Liver Cirrhosis secondary to Hepatitis C, Substance Abuse (Heroin) on Methadone, Hx of OM, presents with draining L Hallux ulcer. 1. L Hallux Cellulitis with Osteomyelitis of distal tuft. POD 2 s/p L great toe partial amputation Wound Cx - polymicrobial Surgical Cx - NLFGNB Day 8 Ceftriaxone/Vanco - continue Ceftriaxone, discontinue Vanco as per ID. Afebrile, Hemodynamically Stable Further IV Abx recommendations as per ID based on final culture ID and Sens. 2. UTI - Urine Cx positive for Staph coag neg/Enterococcus Has been receiving Ceftriaxone/Vancomycin for 8 days. 3. Thrombocytopenia - likely reactive. 4. HIV on HAART - Continue. 5. Hx Heroin Use - on Methadone. 6. Cirrhosis sec to Hepatitis C - s/p Treatment. No evidence of decompensation. 7. HTN - Continue Amlodipine. DVT Px - Heparin SQ
[2018-11-29] MEDS: traZODone HCL 50 MG TABLET (FP) PO SCH (21:37)
[2018-11-30] MEDS ORDERED: METHADONE HCL 40 MG DISPERSABLE TABLET ONE (05:19)
[2018-11-30] MEDS ORDERED: METHADONE HCL 10 MG TABLET ONE (05:19)
[2018-11-30] MEDS ORDERED: METHADONE HCL 5 MG TABLET ONE (05:19)
[2018-11-30] MEDS: METHADONE 40 MG, METHADONE 30 MG, METHADONE 5 MG PO SCH ×2 (06:47→06:48)
[2018-11-30] MEDS: HEPARIN NA (PORCINE) 5,000 UNITS/ML 1ML VIAL SQ SCH ×3 (06:48→21:35)
[2018-11-30 08:02] LABS: BASO % 0.5 % (0-2.0); EOS % 4.1 % (0-4.5); HEMOGLOBIN 13.4 GM/dL (11.7-16.9); LYMPH % 46.6 % (8-40); MCH 31.1 pg (25.7-33.7); MCHC 33.5 g/dl (32.0-35.9); MEAN CELL VOLUME 92.8 fl (80-96); MEAN PLT VOLUME 8.1 fl (7.5-11.1); MONO % 14.3 % (3.8-10.2); NEUT % 34.5 % (42.8-82.8); PLATELET COUNT 102 K/MM3 (134-434); RBC 4.31 M/mm3 (4.00-5.60); RDW 14.1 % (11.9-15.9); WHITE BLOOD COUNT 3.8 K/mm3 (4.0-10.0)
[2018-11-30 08:42] LABS: ALBUMIN 3.7 g/dl (3.4-5.0); BILIRUBIN,TOTAL 0.6 mg/dL (0.2-1); BLOOD UREA NITROGEN 16.8 mg/dL (7-18); CALCIUM 8.7 mg/dL (8.5-10.1); MAGNESIUM 2.2 mg/dL (1.8-2.4); PHOSPHOROUS 3.9 mg/dL (2.5-4.9); POTASSIUM 4.5 mmol/L (3.5-5.1); TOT PROT 8.2 g/dl (6.4-8.2)
[2018-11-30] MEDS ORDERED: PT OWN MED DRAWER 7, Y5N ONE (09:10)
[2018-11-30] MEDS ORDERED: DEXTROSE 5%-WATER 100 ML IVPB ONE ×2 (09:10→17:29)
[2018-11-30] MEDS: FLUTICASONE PROP 0.05% 16 GM NASAL SPRAY NS SCH (10:02)
[2018-11-30] MEDS: EMTRICITAB/RILPIVIRI/TENOF ALA (ODEFSEY) TABLET PO SCH (10:03)
[2018-11-30] MEDS: MULTIVITAMINS (DAILY MVI) TABLET (FP) PO SCH (10:03)
[2018-11-30] MEDS: GABAPENTIN 300 MG CAPSULE (FP) PO SCH ×2 (10:03→21:33)
[2018-11-30] MEDS: amLODIPine BESYLATE 5 MG TABLET (FP) PO SCH (10:03)
[2018-11-30] MEDS: CEFTRIAXONE 2 GM in DEXTROSE 5%-WATER 100 ML IVPB SCH (10:04)
[2018-11-30] MEDS: BACITRACIN 15 GM TUBE TOPICAL OINTMENT TP SCH ×2 (10:09→21:34)
--- NOTE | 2018-11-30 11:21 | PN ---
Progress Note (short form) - Note Progress Note: Seen at bedside POD#2 s/p hallux amputation WOund well coapted NO signs of active infection no drainage no pain no ascending cellulitis Impression Satisfactory healing Plan Sterile dressing change D/C planning
[2018-11-30] MEDS: ACETAMINOPHEN WITH CODEINE 300MG/30MG TABLET PO PRN (13:18)
[2018-11-30] MEDS ORDERED: MEROPENEM 1 GM in DEXTROSE 5%-WATER 100 ML IVPB SCH (14:45)
--- NOTE | 2018-11-30 15:01 | PN ---
Progress Note, Physician History of Present Illness: Pt seen and examined. Events noted. Pt states he feels well. Denies having any specific complaints. - Current Medication List Current Medications: Active Medications Acetaminophen (Tylenol -) 650 mg PO Q6H PRN PRN Reason: PAIN Acetaminophen/Codeine Phosphate (Tylenol # 3 -) 1 tab PO Q12H PRN PRN Reason: PAIN LEVEL 6-10 Last Admin: 11/30/18 13:18 Dose: 1 tab Amlodipine Besylate (Norvasc -) 5 mg PO DAILY [facility] Last Admin: 11/30/18 10:03 Dose: 5 mg Bacitracin (Bacitracin -) 1 applic TP BID [facility] Last Admin: 11/30/18 10:09 Dose: Not Given Docusate Sodium (Colace -) 100 mg PO TID PRN PRN Reason: CONSTIPATION Ergocalciferol (Drisdol -) 50,000 unit PO Q7D [facility] Last Admin: 11/29/18 09:39 Dose: 50,000 unit Fluticasone Propionate (Flonase -) 2 spray NS DAILY [facility] Last Admin: 11/30/18 10:02 Dose: 2 spray Gabapentin (Neurontin -) 300 mg PO BID [facility] Last Admin: 11/30/18 10:03 Dose: 300 mg Heparin Sodium (Porcine) (Heparin -) 5,000 unit SQ TID [facility] Last Admin: 11/30/18 13:15 Dose: 5,000 unit Meropenem 1 gm/ Dextrose 100 mls @ 200 mls/hr IVPB Q8H-IV HAN Vancomycin HCl 1,000 mg/ (Dextrose) 250 mls @ 166.667 mls/hr IVPB Q12H [facility]; Protocol Methadone HCl 40 mg/ Methadone (HCl 30 mg/ Methadone HCl 5 mg) 75 mg PO DAILY@ 0600 [facility] Last Admin: 11/30/18 06:48 Dose: 75 mg Multivitamins/Minerals/Vitamin C (Tab-A-Vit -) 1 tab PO DAILY [facility] Last Admin: 11/30/18 10:03 Dose: 1 tab Trazodone HCl (Desyrel -) 100 mg PO HS [facility] Last Admin: 11/29/18 21:37 Dose: 100 mg - Objective Vital Signs: Vital Signs Temperature 97.8 F 11/30/18 06:00 Pulse Rate 68 11/30/18 06:00 Respiratory Rate 20 11/30/18 06:00 Blood Pressure 156/88 11/30/18 06:00 O2 Sat by Pulse Oximetry (%) 97 11/30/18 09:00 Constitutional: Yes: No Distress, Calm Eyes: Yes: Conjunctiva Clear Cardiovascular: Yes: Regular Rate and Rhythm Respiratory: Yes: Regular Gastrointestinal: Yes: Normal Bowel Sounds, Soft Genitourinary: Yes: WNL Extremities: Yes: Amputation (Lt hallux , less LE edema, dressing intact) Integumentary: Yes: WNL Neurological: Yes: Alert, Oriented Labs: CBC, BMP 11/30/18 06:15 11/30/18 06:15 INR, PTT INR 1.15 (0.83-1.09) H 11/21/18 15:37 Microbiology 11/27/18 15:00 Bone Gram Stain - Final 11/27/18 15:00 Bone Tissue Culture - Preliminary Pseudomonas Aeruginosa Group D Strep Or Entero Coccus 11/27/18 15:00 Bone Anaerobic Culture - Final NO ANAEROBES WERE ISOLATED 11/27/18 15:00 Foot - Left Gram Stain - Final 11/27/18 15:00 Foot - Left Wound Culture - Final Staphylococcus Coagulase Neg 11/21/18 15:35 Blood - Peripheral Venous Blood Culture - Final NO GROWTH AFTER 5 DAYS INCUBATION 11/21/18 15:34 Blood - Peripheral Venous Blood Culture - Final NO GROWTH AFTER 5 DAYS INCUBATION 11/21/18 15:41 Wound Gram Stain - Final 11/21/18 15:41 Wound Wound Culture - Final Klebsiella Pneumoniae Staphylococcus Coagulase Neg Diphtheroid/Corynebacterium Enterococcus Faecalis 11/21/18 15:41 Urine - Urine Clean Catch Urine Culture - Final Group D Strep Or Entero Coccus Staphylococcus Coagulase Neg Problem List - Problems (1) Foot ulcer, left Code(s): L97.529 - NON-PRESSURE CHRONIC ULCER OTH PRT LEFT FOOT W UNSP SEVERITY Qualifiers: Non-pressure ulcer stage: with necrosis of muscle Qualified Code(s): L97.523 - Non-pressure chronic ulcer of other part of left foot with necrosis of muscle (2) Cirrhosis of liver Code(s): K74.60 - UNSPECIFIED CIRRHOSIS OF LIVER (3) HIV (human immunodeficiency virus infection) Code(s): Z21 - ASYMPTOMATIC HUMAN IMMUNODEFICIENCY VIRUS INFECTION STATUS (4) Hepatitis C virus infection resolved after antiviral drug therapy Code(s): Z86.19 - PERSONAL HISTORY OF OTHER INFECTIOUS AND PARASITIC DISEASES (5) Methadone maintenance therapy patient Code(s): F11.20 - OPIOID DEPENDENCE, UNCOMPLICATED Assessment/Plan Lt foot OM s/p hallux amputation HIV on HAART Hep C Liver cirrhosis Hx of heroin abuse on methadone -- bone culture results noted. d/c Ceftriaxone, start Meropenem/Vancomycin -- monitor cbc, bmp, check Vancomycin trough prior to 4th dose -- continue wound care -- Podiatry following case d/w Dr. Wiggins
[2018-11-30] MEDS: VANCOMYCIN 1 GRAM (PRE-DOCKED) 1,000 MG/250 ML BAG IVPB SCH (15:46)
--- NOTE | 2018-11-30 16:32 | PN ---
Teaching Attending Note Name of Resident: Courtney Mosqueda ATTENDING PHYSICIAN STATEMENT I saw and evaluated the patient. I reviewed the resident's note and discussed the case with the resident. I agree with the resident's findings and plan as documented. SUBJECTIVE: tolerating Left hallux discomfort s/p Surgery. No fever/chills. OBJECTIVE: Afebrile, Hemodynamically Stable Last Vital Signs Temp Pulse Resp BP Pulse Ox 979 F H 64 20 135/77 97 11/30/18 14:00 11/30/18 14:00 11/30/18 14:00 11/30/18 14:00 11/30/18 09:00 Heart - S1, S2, SM Lungs - clear to auscultation Abdomen - Soft, non-tender. Extremities L great toe dressed. No calf swelling/tenderness. Extremities well perfused. Finger clubbing. Laboratory Results - last 24 hr 11/28/18 11/30/18 11/30/18 16:45 06:15 06:15 WBC 3.8 L RBC 4.31 Hgb 13.4 Hct 40.0 MCV 92.8 MCH 31.1 MCHC 33.5 RDW 14.1 Plt Count 102 L MPV 8.1 Absolute Neuts (auto) 1.3 L Neutrophils % 34.5 L Lymphocytes % 46.6 H Monocytes % 14.3 H Eosinophils % 4.1 Basophils % 0.5 Nucleated RBC % 0 Sodium 140 Potassium 4.5 Chloride 104 Carbon Dioxide 30 Anion Gap 5 L BUN 16.8 Creatinine 1.0 Est GFR (CKD-EPI)AfAm 94.39 Est GFR (CKD-EPI)NonAf 81.44 POC Glucometer 88 Random Glucose 86 Calcium 8.7 Phosphorus 3.9 Magnesium 2.2 Total Bilirubin 0.6 AST 62 H ALT 28 Alkaline Phosphatase 71 Total Protein 8.2 Albumin 3.7 Current Medications Generic Name Dose Route Start Last Admin Trade Name Freq PRN Reason Stop Dose Admin Acetaminophen 650 mg 11/27/18 15:45 Tylenol - PO Q6H PRN PAIN Acetaminophen/Codeine Phosphate 1 tab 11/28/18 16:13 11/30/18 13:18 Tylenol # 3 - PO 1 tab Q12H PRN Administration PAIN LEVEL 6-10 Amlodipine Besylate 5 mg 11/28/18 10:00 11/30/18 10:03 Norvasc - PO 5 mg DAILY HAN Administration Bacitracin 1 applic 11/27/18 22:00 11/30/18 10:09 Bacitracin - TP Not Given BID HAN Docusate Sodium 100 mg 11/27/18 15:45 Colace - PO TID PRN CONSTIPATION Ergocalciferol 50,000 unit 11/29/18 10:00 11/29/18 09:39 Drisdol - PO 50,000 unit Q7D HAN Administration Fluticasone Propionate 2 spray 11/28/18 10:00 11/30/18 10:02 Flonase - NS 2 spray DAILY [facility]AN Administration Gabapentin 300 mg 11/27/18 22:00 11/30/18 10:03 Neurontin - PO 300 mg BID HAN Administration Heparin Sodium (Porcine) 5,000 unit 11/28/18 22:00 11/30/18 13:15 Heparin - SQ 5,000 unit TID HAN Administration Vancomycin HCl 1,000 mg in 250 mls @ 166.667 mls/hr 11/30/18 15:00 11/30/18 15:46 Vancomycin (Pre-Docked) IVPB 166.667 mls/hr Q12H HAN Administration Protocol Meropenem 1 gm/ Dextrose 100 mls @ 200 mls/hr 11/30/18 18:00 IVPB Q8H-IV HAN Methadone HCl 40 mg/ Methadone 75 mg 11/27/18 16:30 11/30/18 06:48 HCl 30 mg/ Methadone HCl 5 mg PO 75 mg DAILY@0600 HAN Administration Multivitamins/Minerals/Vitamin C 1 tab 11/28/18 10:00 11/30/18 10:03 Tab-A-Vit - PO 1 tab DAILY [facility]AN Administration Trazodone HCl 100 mg 11/27/18 22:00 11/29/18 21:37 Desyrel - PO 100 mg HS HAN Administration ASSESSMENT AND PLAN: 58 year old male with HIV (on HAART), Liver Cirrhosis secondary to Hepatitis C, Substance Abuse (Heroin) on Methadone, Hx of OM, presents with draining L Hallux ulcer. 1. L Hallux Cellulitis with Osteomyelitis of distal tuft. POD 3 s/p L great toe partial amputation Wound Cx - polymicrobial Surgical Cx -coag neg staph, Bone Cx - pseudomonas, GpD Strep/Enterococcus Day 9 Ceftriaxone/Vanco - Abx switched by ID to Meropenem/Vanco for 5 additional weeks. Afebrile, Hemodynamically Stable 2. UTI - Urine Cx positive for Staph coag neg/Enterococcus Has been receiving Ceftriaxone/Vancomycin for 9 days - for transition to Vanco/ Meropenem as above. 3. Thrombocytopenia - likely reactive. 4. HIV on HAART - Continue. 5. Hx Heroin Use - on Methadone. 6. Cirrhosis sec to Hepatitis C - s/p Treatment. No evidence of decompensation. 7. HTN - Continue Amlodipine. DVT Px - Heparin SQ Dispo - CM working on DC plan involving SNF as administration of abx 5 times daily may be too much for coordination at home. Patient considering SNF as an option.
--- NOTE | 2018-11-30 16:54 | PATH ---
Surgical Pathology Report Patient Name: APURVA HERRMANN Med. Rec. #: [id number] /Age/Gender: 1960 (Age: 58) / M Account: [id number] Location: [facility] MED/SURG Taken: 11/27/2018 Received: 11/27/2018 Reported: 11/30/2018 Physicians: ZACKARY Pena M.D. Specimen(s) Received A: PROXIMAL BONE LEFT FOOT B: GREAT TOE LEFT Clinical History Osteomyelitis left great toe Final Diagnosis A. PROXIMAL BONE, LEFT, EXCISION: BONE WITHOUT SIGNIFICANT PATHOLOGIC FINDINGS. NO ACUTE OSTEOMYELITIS IDENTIFIED. B. GREAT TOE, LEFT, AMPUTATION: DIGIT WITH MARKED HYPERKERATOSIS, SUPERFICIAL ACUTE AND CHRONIC INFLAMMATION AND FOCAL ULCERATION. UNDERLYING BONE WITH MILD OSTEOMYELITIS. SURGICAL MARGINS ARE VIABLE. Electronically Signed Nevaeh Junior M.D. Gross Description A. Received in formalin labeled "proximal bone left," is a 2.5 x 1.0 x 0.8 cm damon-yellow portion of bone. A installation service representative full face section is submitted in one cassette, following decalcification. B. Received in formalin labeled "great toe left," is a 4.5 x 4.0 x 3.0 cm toe amputation. The epidermal surface displays a 1.7 x 1.5 cm ulcerated lesion at the distal aspect. The underlying bone is yellow and hard. Home Health Lpn sections are submitted in 4 cassettes as follows: 1-lesion; 2-distal bone, following decalcification; 3-bone margin, following decalcification; 4-skin and soft tissue margin. 11/28/2018 [facility]11/28/2018
[2018-11-30] MEDS ORDERED: MEROPENEM 1 GM VIAL (RESTRICTED TO ID) IVPB ONE (17:29)
[2018-11-30] MEDS: MEROPENEM 1 GM in DEXTROSE 5%-WATER 100 ML IVPB SCH (17:36)
--- NOTE | 2018-11-30 17:40 | PN ---
Physical Exam: SUBJECTIVE: Patient seen and examined. No acute complaints. PICC line placed. Continuing abx, ceftriaxone d/c'd, started meropenem. OBJECTIVE: Vital Signs Period Temp Pulse Resp BP Sys/Forman Pulse Ox Last 24 Hr 97.8 F-979 F 64-70 20-20 118-156/75-88 97 GENERAL: The patient is awake, alert, and fully oriented, in no acute distress. LUNGS: CTABL. No incr work of breathing. No wheezing noted. HEART: Regular rate and rhythm, S1, S2 heard. No murmurs appreciated. ABDOMEN: Soft, nontender, nondistended, normoactive bowel sounds. No masses palpated. EXTREMITIES: LLE 1+ edema, erythematous, anterior cellulitis present. LLE s/p 1st digit amputation. Finger clubbing noted b/l. Dressing C/D/I to LLE. Laboratory Results - last 24 hr Laboratory Last Values WBC 3.8 K/mm3 (4.0-10.0) L 11/30/18 06:15 RBC 4.31 M/mm3 (4.00-5.60) 11/30/18 06:15 Hgb 13.4 GM/dL (11.7-16.9) 11/30/18 06:15 Hct 40.0 % (35.4-49) 11/30/18 06:15 MCV 92.8 fl (80-96) 11/30/18 06:15 MCH 31.1 pg (25.7-33.7) 11/30/18 06:15 MCHC 33.5 g/dl (32.0-35.9) 11/30/18 06:15 RDW 14.1 % (11.9-15.9) 11/30/18 06:15 Plt Count 102 K/MM3 (134-434) L 11/30/18 06:15 MPV 8.1 fl (7.5-11.1) 11/30/18 06:15 Absolute Neuts (auto) 1.3 K/mm3 (1.5-8.0) L 11/30/18 06:15 Neutrophils % 34.5 % (42.8-82.8) L 11/30/18 06:15 Lymphocytes % 46.6 % (8-40) H 11/30/18 06:15 Monocytes % 14.3 % (3.8-10.2) H 11/30/18 06:15 Eosinophils % 4.1 % (0-4.5) 11/30/18 06:15 Basophils % 0.5 % (0-2.0) 11/30/18 06:15 Nucleated RBC % 0 % (0-0) 11/30/18 06:15 Platelet Estimate Decreased 11/21/18 15:37 Platelet Comment No clumping noted 11/21/18 15:37 ESR 36 mm/hr (0-20) H 11/21/18 15:37 PT with INR 13.60 SEC (9.7-13.0) H 11/21/18 15:37 INR 1.15 (0.83-1.09) H 11/21/18 15:37 PTT (Actin FS) 36.6 SECONDS (25.2-36.5) H 11/21/18 15:37 Sodium 140 mmol/L (136-145) 11/30/18 06:15 Potassium 4.5 mmol/L (3.5-5.1) 11/30/18 06:15 Chloride 104 mmol/L (98-107) 11/30/18 06:15 Carbon Dioxide 30 mmol/L (21-32) 11/30/18 06:15 Anion Gap 5 MMOL/L (8-16) L 11/30/18 06:15 BUN 16.8 mg/dL (7-18) 11/30/18 06:15 Creatinine 1.0 mg/dL (0.55-1.3) 11/30/18 06:15 Est GFR (CKD-EPI)AfAm 94.39 11/30/18 06:15 Est GFR (CKD-EPI)NonAf 81.44 11/30/18 06:15 POC Glucometer 88 UNITS (80-120) 11/28/18 16:45 Random Glucose 86 mg/dL (74-106) 11/30/18 06:15 Hemoglobin A1c % 5.7 % (4.2-6.3) 11/22/18 06:44 Calcium 8.7 mg/dL (8.5-10.1) 11/30/18 06:15 Phosphorus 3.9 mg/dL (2.5-4.9) 11/30/18 06:15 Magnesium 2.2 mg/dL (1.8-2.4) 11/30/18 06:15 Total Bilirubin 0.6 mg/dL (0.2-1) 11/30/18 06:15 AST 62 U/L (15-37) H 11/30/18 06:15 ALT 28 U/L (13-61) 11/30/18 06:15 Alkaline Phosphatase 71 U/L (45-117) 11/30/18 06:15 C-Reactive Protein 9.3 MG/DL (0.00-0.3) H 11/21/18 15:37 Total Protein 8.2 g/dl (6.4-8.2) 11/30/18 06:15 Albumin 3.7 g/dl (3.4-5.0) 11/30/18 06:15 Urine Color Yellow 11/21/18 15:41 Urine Appearance Clear 11/21/18 15:41 Urine pH 6.0 (5.0-8.0) 11/21/18 15:41 Ur Specific [place] 1.016 (1.010-1.035) 11/21/18 15:41 Urine Protein Negative (NEGATIVE) 11/21/18 15:41 Urine Glucose (UA) Negative (NEGATIVE) 11/21/18 15:41 Urine Ketones Negative (NEGATIVE) 11/21/18 15:41 Urine Blood 1+ (NEGATIVE) H 11/21/18 15:41 Urine Nitrite Negative (NEGATIVE) 11/21/18 15:41 Urine Bilirubin Negative (NEGATIVE) 11/21/18 15:41 Urine Urobilinogen 4.0 e.u/dl mg/dL (0.2-1.0) 11/21/18 15:41 Ur Leukocyte Esterase Negative (NEGATIVE) 11/21/18 15:41 Urine WBC (Auto) 0 /hpf (0-5) 11/21/18 15:41 Urine RBC (Auto) 10 /hpf (0-4) 11/21/18 15:41 Urine Casts (Auto) 0 /lpf (0-8) 11/21/18 15:41 U Epithel Cells (Auto) 0.1 /HPF (0-5/HPF) 11/21/18 15:41 Urine Bacteria (Auto) 2.9 /hpf (NEGATIVE) 11/21/18 15:41 Vancomycin Pre-Dose 8.3 ug/ml (18-26) L 11/28/18 12:58 Blood Type B POSITIVE 11/27/18 06:20 Antibody Screen Negative 11/27/18 06:20 Active Medications Current Medications Acetaminophen (Tylenol -) 650 mg PO Q6H PRN PRN Reason: PAIN Acetaminophen/Codeine Phosphate (Tylenol # 3 -) 1 tab PO Q12H PRN PRN Reason: PAIN LEVEL 6-10 Last Admin: 11/30/18 13:18 Dose: 1 tab Amlodipine Besylate (Norvasc -) 5 mg PO DAILY [facility] Last Admin: 11/30/18 10:03 Dose: 5 mg Bacitracin (Bacitracin -) 1 applic TP BID [facility] Last Admin: 11/30/18 10:09 Dose: Not Given Docusate Sodium (Colace -) 100 mg PO TID PRN PRN Reason: CONSTIPATION Ergocalciferol (Drisdol -) 50,000 unit PO Q7D [facility] Last Admin: 11/29/18 09:39 Dose: 50,000 unit Fluticasone Propionate (Flonase -) 2 spray NS DAILY [facility] Last Admin: 11/30/18 10:02 Dose: 2 spray Gabapentin (Neurontin -) 300 mg PO BID [facility] Last Admin: 11/30/18 10:03 Dose: 300 mg Heparin Sodium (Porcine) (Heparin -) 5,000 unit SQ TID [facility] Last Admin: 11/30/18 13:15 Dose: 5,000 unit Vancomycin HCl (Vancomycin (Pre-Docked)) 1,000 mg in 250 mls @ 166.667 mls/hr IVPB Q12H [facility]; Protocol Last Admin: 11/30/18 15:46 Dose: 166.667 mls/hr Meropenem 1 gm/ Dextrose 100 mls @ 200 mls/hr IVPB Q8H-IV [facility]AN Methadone HCl 40 mg/ Methadone (HCl 30 mg/ Methadone HCl 5 mg) 75 mg PO DAILY@ 0600 [facility] Last Admin: 11/30/18 06:48 Dose: 75 mg Multivitamins/Minerals/Vitamin C (Tab-A-Vit -) 1 tab PO DAILY [facility] Last Admin: 11/30/18 10:03 Dose: 1 tab Trazodone HCl (Desyrel -) 100 mg PO HS [facility] Last Admin: 11/29/18 21:37 Dose: 100 mg ASSESSMENT/PLAN: 58 y.o. PMH HTN, HIV, OM s/p I&D 2017, IVDA (heroine & cocaine), on methadone, cirrhosis d/t HCV s/p HCV tx, thrombocytopenia presented for LLE edema found to have OM of left 1st digit, s/p amputation. #Left 1st digit OM w/ LLE Cellulitis -S/p LLE 1st digit amputation -Pre surgical Wound cx + polymicrobial, operative wound cx + for coag neg staph. -Bone cx: growing Pseudomonas, enterococcus -C/w abx Vanc, added Meropenem -ID (Dr. Mcbride) recs appreciated -Podiatry (Dr. Kaiser) on board #Pain control -Tylenol w/codeine PRN BID -Tylenol 650 q6h PRN #Thrombocytopenia -102 today -No active bleeds #HIV -C/w HAART #Hx of Cirrhosis -Due to HCV -S/p treatment #Hx of IVDA (Heroin) -On Methadone 75mg daily #Hx of HTN, Controlled -c/w Amlodipine #FEN -No Standing Fluids -Replete Lytes PRN -Diabetic diet #DVT PPx -SCDs Visit type - Emergency Visit Emergency Visit: No - New Patient This patient is new to me today: No - Critical Care Critical Care patient: No ATTENDING PHYSICIAN STATEMENT I saw and evaluated the patient. I reviewed the resident's note and discussed the case with the resident. I agree with the resident's findings and plan as documented. SUBJECTIVE: OBJECTIVE: ASSESSMENT AND PLAN:
[2018-11-30] MEDS: traZODone HCL 50 MG TABLET (FP) PO SCH (21:33)
[2018-12-01] MEDS ORDERED: DEXTROSE 5%-WATER 100 ML IVPB ONE ×3 (00:23→16:45)
[2018-12-01] MEDS ORDERED: MEROPENEM 1 GM VIAL (RESTRICTED TO ID) IVPB ONE ×3 (00:23→16:45)
[2018-12-01] MEDS: MEROPENEM 1 GM in DEXTROSE 5%-WATER 100 ML IVPB SCH ×3 (01:37→17:01)
[2018-12-01] MEDS: VANCOMYCIN 1 GRAM (PRE-DOCKED) 1,000 MG/250 ML BAG IVPB SCH ×2 (03:09→14:11)
[2018-12-01] MEDS ORDERED: METHADONE HCL 5 MG TABLET ONE (05:24)
[2018-12-01] MEDS ORDERED: METHADONE HCL 40 MG DISPERSABLE TABLET ONE (05:24)
[2018-12-01] MEDS ORDERED: METHADONE HCL 10 MG TABLET ONE (05:24)
[2018-12-01] MEDS: HEPARIN NA (PORCINE) 5,000 UNITS/ML 1ML VIAL SQ SCH ×3 (06:10→21:13)
[2018-12-01] MEDS: METHADONE 40 MG, METHADONE 30 MG, METHADONE 5 MG PO SCH (06:11)
--- NOTE | 2018-12-01 08:07 | PN ---
Physical Exam: SUBJECTIVE: Patient seen and examined OBJECTIVE: Vital Signs Period Temp Pulse Resp BP Sys/Forman Pulse Ox Last 24 Hr 98.0 F-979 F 54-64 20-20 102-135/70-92 97-97 GENERAL: The patient is awake, alert, and fully oriented, in no acute distress. HEAD: Normal with no signs of trauma. EYES: PERRL, extraocular movements intact, sclera anicteric, conjunctiva clear. No ptosis. ENT: Ears normal, nares patent, oropharynx clear without exudates, moist mucous membranes. NECK: Trachea midline, full range of motion, supple. LUNGS: Breath sounds equal, clear to auscultation bilaterally, no wheezes, no crackles, no accessory muscle use. HEART: Regular rate and rhythm, S1, S2 without murmur, rub or gallop. ABDOMEN: Soft, nontender, nondistended, normoactive bowel sounds, no guarding, no rebound, no hepatosplenomegaly, no masses. EXTREMITIES: 2+ pulses, warm, well-perfused, no edema. NEUROLOGICAL: Cranial nerves II through XII grossly intact. Normal speech, gait not observed. PSYCH: Normal mood, normal affect. SKIN: Warm, dry, normal turgor, no rashes or lesions noted Laboratory Results - last 24 hr 11/28/18 11/30/18 11/30/18 16:45 06:15 06:15 WBC 3.8 L RBC 4.31 Hgb 13.4 Hct 40.0 MCV 92.8 MCH 31.1 MCHC 33.5 RDW 14.1 Plt Count 102 L MPV 8.1 Absolute Neuts (auto) 1.3 L Neutrophils % 34.5 L Lymphocytes % 46.6 H Monocytes % 14.3 H Eosinophils % 4.1 Basophils % 0.5 Nucleated RBC % 0 Sodium 140 Potassium 4.5 Chloride 104 Carbon Dioxide 30 Anion Gap 5 L BUN 16.8 Creatinine 1.0 Est GFR (CKD-EPI)AfAm 94.39 Est GFR (CKD-EPI)NonAf 81.44 POC Glucometer 88 Random Glucose 86 Calcium 8.7 Phosphorus 3.9 Magnesium 2.2 Total Bilirubin 0.6 AST 62 H ALT 28 Alkaline Phosphatase 71 Total Protein 8.2 Albumin 3.7 Active Medications Generic Name Dose Route Start Last Admin Trade Name Freq PRN Reason Stop Dose Admin Acetaminophen 650 mg 11/27/18 15:45 Tylenol - PO Q6H PRN PAIN Acetaminophen/Codeine Phosphate 1 tab 11/28/18 16:13 11/30/18 13:18 Tylenol # 3 - PO 1 tab Q12H PRN Administration PAIN LEVEL 6-10 Amlodipine Besylate 5 mg 11/28/18 10:00 11/30/18 10:03 Norvasc - PO 5 mg DAILY HAN Administration Bacitracin 1 applic 11/27/18 22:00 11/30/18 21:34 Bacitracin - TP Not Given BID HAN Docusate Sodium 100 mg 11/27/18 15:45 Colace - PO TID PRN CONSTIPATION Ergocalciferol 50,000 unit 11/29/18 10:00 11/29/18 09:39 Drisdol - PO 50,000 unit Q7D HAN Administration Fluticasone Propionate 2 spray 11/28/18 10:00 11/30/18 10:02 Flonase - NS 2 spray DAILY HAN Administration Gabapentin 300 mg 11/27/18 22:00 11/30/18 21:33 Neurontin - PO 300 mg BID HAN Administration Heparin Sodium (Porcine) 5,000 unit 11/28/18 22:00 12/01/18 06:10 Heparin - SQ 5,000 unit TID HAN Administration Vancomycin HCl 1,000 mg in 250 mls @ 166.667 mls/hr 11/30/18 15:00 12/01/18 03:09 Vancomycin (Pre-Docked) IVPB 166.667 mls/hr Q12H HAN Administration Protocol Meropenem 1 gm/ Dextrose 100 mls @ 200 mls/hr 11/30/18 18:00 12/01/18 01:37 IVPB 200 mls/hr Q8H-IV HAN Administration Methadone HCl 40 mg/ Methadone 75 mg 11/27/18 16:30 12/01/18 06:11 HCl 30 mg/ Methadone HCl 5 mg PO 75 mg DAILY@0600 HAN Administration Multivitamins/Minerals/Vitamin C 1 tab 11/28/18 10:00 11/30/18 10:03 Tab-A-Vit - PO 1 tab DAILY HAN Administration Trazodone HCl 100 mg 11/27/18 22:00 11/30/18 21:33 Desyrel - PO 100 mg HS HAN Administration ASSESSMENT/PLAN: ATTENDING PHYSICIAN STATEMENT I saw and evaluated the patient. I reviewed the resident's note and discussed the case with the resident. I agree with the resident's findings and plan as documented. SUBJECTIVE: OBJECTIVE: ASSESSMENT AND PLAN:
[2018-12-01 09:01] LABS: ALBUMIN 3.5 g/dl (3.4-5.0); BILIRUBIN,TOTAL 0.4 mg/dL (0.2-1); BLOOD UREA NITROGEN 17.5 mg/dL (7-18); MAGNESIUM 2.4 mg/dL (1.8-2.4); PHOSPHOROUS 3.6 mg/dL (2.5-4.9); POTASSIUM 4.2 mmol/L (3.5-5.1); TOT PROT 7.8 g/dl (6.4-8.2)
[2018-12-01] MEDS: amLODIPine BESYLATE 5 MG TABLET (FP) PO SCH (09:51)
[2018-12-01] MEDS: GABAPENTIN 300 MG CAPSULE (FP) PO SCH ×2 (09:51→21:13)
[2018-12-01] MEDS: MULTIVITAMINS (DAILY MVI) TABLET (FP) PO SCH (09:51)
[2018-12-01] MEDS: FLUTICASONE PROP 0.05% 16 GM NASAL SPRAY NS SCH (09:52)
[2018-12-01] MEDS: BACITRACIN 15 GM TUBE TOPICAL OINTMENT TP SCH ×2 (09:52→21:14)
[2018-12-01] MEDS: EMTRICITAB/RILPIVIRI/TENOF ALA (ODEFSEY) TABLET PO SCH (09:53)
[2018-12-01 10:31] LABS: BASO % 0.8 % (0-2.0); EOS % 4.3 % (0-4.5); LYMPH % 42.3 % (8-40); MCH 31.1 pg (25.7-33.7); MCHC 33.4 g/dl (32.0-35.9); MEAN CELL VOLUME 93.2 fl (80-96); MEAN PLT VOLUME 8.5 fl (7.5-11.1); MONO % 11.8 % (3.8-10.2); NEUT % 40.8 % (42.8-82.8); PLATELET COUNT 107 K/MM3 (134-434); RBC 4.19 M/mm3 (4.00-5.60); WHITE BLOOD COUNT 3.9 K/mm3 (4.0-10.0)
--- NOTE | 2018-12-01 11:31 | PN ---
Teaching Attending Note Name of Resident: Courtney Mosqueda ATTENDING PHYSICIAN STATEMENT I saw and evaluated the patient. I reviewed the resident's note and discussed the case with the resident. I agree with the resident's findings and plan as documented. SUBJECTIVE: Tolerating Left hallux discomfort s/p Surgery. No fever/chills. OBJECTIVE: Afebrile, Hemodynamically Stable Last Vital Signs Temp Pulse Resp BP Pulse Ox 98.1 F 54 L 20 130/92 97 12/01/18 06:52 12/01/18 06:52 12/01/18 06:52 12/01/18 06:52 11/30/18 21:00 Heart - S1, S2, SM Lungs - clear to auscultation Abdomen - Soft, non-tender. Extremities L great toe dressed. No calf swelling/tenderness. Extremities well perfused. Finger clubbing. Laboratory Results - last 24 hr 12/01/18 12/01/18 08:00 08:00 WBC 3.9 L RBC 4.19 Hgb 13.0 Hct 39.0 MCV 93.2 MCH 31.1 MCHC 33.4 RDW 14.0 Plt Count 107 L MPV 8.5 Absolute Neuts (auto) 1.6 Neutrophils % 40.8 L Lymphocytes % 42.3 H Monocytes % 11.8 H Eosinophils % 4.3 Basophils % 0.8 Nucleated RBC % 0 Sodium 137 Potassium 4.2 Chloride 103 Carbon Dioxide 31 Anion Gap 3 L BUN 17.5 Creatinine 1.0 Est GFR (CKD-EPI)AfAm 94.39 Est GFR (CKD-EPI)NonAf 81.44 Random Glucose 80 Calcium 9.0 Phosphorus 3.6 Magnesium 2.4 Total Bilirubin 0.4 AST 61 H ALT 29 Alkaline Phosphatase 64 Total Protein 7.8 Albumin 3.5 Current Medications Generic Name Dose Route Start Last Admin Trade Name Freq PRN Reason Stop Dose Admin Acetaminophen 650 mg 11/27/18 15:45 Tylenol - PO Q6H PRN PAIN Acetaminophen/Codeine Phosphate 1 tab 11/28/18 16:13 11/30/18 13:18 Tylenol # 3 - PO 1 tab Q12H PRN Administration PAIN LEVEL 6-10 Amlodipine Besylate 5 mg 11/28/18 10:00 12/01/18 09:51 Norvasc - PO 5 mg DAILY HAN Administration Bacitracin 1 applic 11/27/18 22:00 12/01/18 09:52 Bacitracin - TP Not Given BID HAN Docusate Sodium 100 mg 11/27/18 15:45 Colace - PO TID PRN CONSTIPATION Ergocalciferol 50,000 unit 11/29/18 10:00 11/29/18 09:39 Drisdol - PO 50,000 unit Q7D HAN Administration Fluticasone Propionate 2 spray 11/28/18 10:00 12/01/18 09:52 Flonase - NS 2 spray DAILY [facility]AN Administration Gabapentin 300 mg 11/27/18 22:00 12/01/18 09:51 Neurontin - PO 300 mg BID HAN Administration Heparin Sodium (Porcine) 5,000 unit 11/28/18 22:00 12/01/18 06:10 Heparin - SQ 5,000 unit TID HAN Administration Vancomycin HCl 1,000 mg in 250 mls @ 166.667 mls/hr 11/30/18 15:00 12/01/18 03:09 Vancomycin (Pre-Docked) IVPB 166.667 mls/hr Q12H HAN Administration Protocol Meropenem 1 gm/ Dextrose 100 mls @ 200 mls/hr 11/30/18 18:00 12/01/18 09:52 IVPB 200 mls/hr Q8H-IV HAN Administration Methadone HCl 40 mg/ Methadone 75 mg 11/27/18 16:30 12/01/18 06:11 HCl 30 mg/ Methadone HCl 5 mg PO 75 mg DAILY@0600 HAN Administration Multivitamins/Minerals/Vitamin C 1 tab 11/28/18 10:00 12/01/18 09:51 Tab-A-Vit - PO 1 tab DAILY HAN Administration Trazodone HCl 100 mg 11/27/18 22:00 11/30/18 21:33 Desyrel - PO 100 mg HS HAN Administration ASSESSMENT AND PLAN: 58 year old male with HIV (on HAART), Liver Cirrhosis secondary to Hepatitis C, Substance Abuse (Heroin) on Methadone, Hx of OM, presents with draining L Hallux ulcer. 1. L Hallux Cellulitis with Osteomyelitis of distal tuft. POD 4 s/p L great toe partial amputation Wound Cx - polymicrobial Surgical Cx -coag neg staph, Bone Cx - pseudomonas, GpD Strep/Enterococcus On Day 9 of Ceftriaxone/Vanco, Abx were switched by ID to Meropenem/Vanco for 5 additional weeks. Afebrile, Hemodynamically Stable PICC placed, awaiting placement. 2. UTI - Urine Cx positive for Staph coag neg/Enterococcus < 10,000 CFU/ml each Has been receiving Ceftriaxone/Vancomycin for 9 days - for transition to Vanco/ Meropenem as above. 3. Thrombocytopenia - likely reactive. Stable. 4. HIV on HAART - Continue. 5. Remote Hx Heroin Use - on Methadone. 6. Cirrhosis sec to Hepatitis C - s/p Treatment. No evidence of decompensation. 7. HTN - Continue Amlodipine. DVT Px - Heparin SQ Dispo - CM working on DC plan involving SNF as administration of abx 5 times daily may be too much for coordination at home.
[2018-12-01] MEDS: ACETAMINOPHEN WITH CODEINE 300MG/30MG TABLET PO PRN (13:45)
--- NOTE | 2018-12-01 15:12 | PN ---
Physical Exam: SUBJECTIVE: Patient seen and examined. No acute events overnight. Pt feeling well, no complaints. OBJECTIVE: Vital Signs Period Temp Pulse Resp BP Sys/Forman Pulse Ox Last 24 Hr 97.8 F-98.1 F 54-86 20-20 102-130/70-92 97 GENERAL: The patient is awake, alert, and fully oriented, in no acute distress. LUNGS: CTABL. No incr work of breathing. No wheezing noted. HEART: Regular rate and rhythm, S1, S2 heard. No murmurs appreciated. ABDOMEN: Soft, nontender, nondistended, normoactive bowel sounds. No masses palpated. EXTREMITIES: LLE 1+ edema, erythematous, anterior cellulitis present. LLE s/p 1st digit amputation. Finger clubbing noted b/l. Dressing C/D/I to LLE. Laboratory Results - last 24 hr Laboratory Last Values WBC 3.9 K/mm3 (4.0-10.0) L 12/01/18 08:00 RBC 4.19 M/mm3 (4.00-5.60) 12/01/18 08:00 Hgb 13.0 GM/dL (11.7-16.9) 12/01/18 08:00 Hct 39.0 % (35.4-49) 12/01/18 08:00 MCV 93.2 fl (80-96) 12/01/18 08:00 MCH 31.1 pg (25.7-33.7) 12/01/18 08:00 MCHC 33.4 g/dl (32.0-35.9) 12/01/18 08:00 RDW 14.0 % (11.9-15.9) 12/01/18 08:00 Plt Count 107 K/MM3 (134-434) L 12/01/18 08:00 MPV 8.5 fl (7.5-11.1) 12/01/18 08:00 Absolute Neuts (auto) 1.6 K/mm3 (1.5-8.0) 12/01/18 08:00 Neutrophils % 40.8 % (42.8-82.8) L 12/01/18 08:00 Lymphocytes % 42.3 % (8-40) H 12/01/18 08:00 Monocytes % 11.8 % (3.8-10.2) H 12/01/18 08:00 Eosinophils % 4.3 % (0-4.5) 12/01/18 08:00 Basophils % 0.8 % (0-2.0) 12/01/18 08:00 Nucleated RBC % 0 % (0-0) 12/01/18 08:00 Platelet Estimate Decreased 11/21/18 15:37 Platelet Comment No clumping noted 11/21/18 15:37 ESR 36 mm/hr (0-20) H 11/21/18 15:37 PT with INR 13.60 SEC (9.7-13.0) H 11/21/18 15:37 INR 1.15 (0.83-1.09) H 11/21/18 15:37 PTT (Actin FS) 36.6 SECONDS (25.2-36.5) H 11/21/18 15:37 Sodium 137 mmol/L (136-145) 12/01/18 08:00 Potassium 4.2 mmol/L (3.5-5.1) 12/01/18 08:00 Chloride 103 mmol/L (98-107) 12/01/18 08:00 Carbon Dioxide 31 mmol/L (21-32) 12/01/18 08:00 Anion Gap 3 MMOL/L (8-16) L 12/01/18 08:00 BUN 17.5 mg/dL (7-18) 12/01/18 08:00 Creatinine 1.0 mg/dL (0.55-1.3) 12/01/18 08:00 Est GFR (CKD-EPI)AfAm 94.39 12/01/18 08:00 Est GFR (CKD-EPI)NonAf 81.44 12/01/18 08:00 POC Glucometer 88 UNITS (80-120) 11/28/18 16:45 Random Glucose 80 mg/dL (74-106) 12/01/18 08:00 Hemoglobin A1c % 5.7 % (4.2-6.3) 11/22/18 06:44 Calcium 9.0 mg/dL (8.5-10.1) 12/01/18 08:00 Phosphorus 3.6 mg/dL (2.5-4.9) 12/01/18 08:00 Magnesium 2.4 mg/dL (1.8-2.4) 12/01/18 08:00 Total Bilirubin 0.4 mg/dL (0.2-1) 12/01/18 08:00 AST 61 U/L (15-37) H 12/01/18 08:00 ALT 29 U/L (13-61) 12/01/18 08:00 Alkaline Phosphatase 64 U/L (45-117) 12/01/18 08:00 C-Reactive Protein 9.3 MG/DL (0.00-0.3) H 11/21/18 15:37 Total Protein 7.8 g/dl (6.4-8.2) 12/01/18 08:00 Albumin 3.5 g/dl (3.4-5.0) 12/01/18 08:00 Urine Color Yellow 11/21/18 15:41 Urine Appearance Clear 11/21/18 15:41 Urine pH 6.0 (5.0-8.0) 11/21/18 15:41 Ur Specific [place] 1.016 (1.010-1.035) 11/21/18 15:41 Urine Protein Negative (NEGATIVE) 11/21/18 15:41 Urine Glucose (UA) Negative (NEGATIVE) 11/21/18 15:41 Urine Ketones Negative (NEGATIVE) 11/21/18 15:41 Urine Blood 1+ (NEGATIVE) H 11/21/18 15:41 Urine Nitrite Negative (NEGATIVE) 11/21/18 15:41 Urine Bilirubin Negative (NEGATIVE) 11/21/18 15:41 Urine Urobilinogen 4.0 e.u/dl mg/dL (0.2-1.0) 11/21/18 15:41 Ur Leukocyte Esterase Negative (NEGATIVE) 11/21/18 15:41 Urine WBC (Auto) 0 /hpf (0-5) 11/21/18 15:41 Urine RBC (Auto) 10 /hpf (0-4) 11/21/18 15:41 Urine Casts (Auto) 0 /lpf (0-8) 11/21/18 15:41 U Epithel Cells (Auto) 0.1 /HPF (0-5/HPF) 11/21/18 15:41 Urine Bacteria (Auto) 2.9 /hpf (NEGATIVE) 11/21/18 15:41 Vancomycin Pre-Dose 8.3 ug/ml (18-26) L 11/28/18 12:58 Blood Type B POSITIVE 11/27/18 06:20 Antibody Screen Negative 11/27/18 06:20 Active Medications Current Medications Acetaminophen (Tylenol -) 650 mg PO Q6H PRN PRN Reason: PAIN Acetaminophen/Codeine Phosphate (Tylenol # 3 -) 1 tab PO Q12H PRN PRN Reason: PAIN LEVEL 6-10 Last Admin: 12/01/18 13:45 Dose: 1 tab Amlodipine Besylate (Norvasc -) 5 mg PO DAILY [facility] Last Admin: 12/01/18 09:51 Dose: 5 mg Bacitracin (Bacitracin -) 1 applic TP BID [facility] Last Admin: 12/01/18 09:52 Dose: Not Given Docusate Sodium (Colace -) 100 mg PO TID PRN PRN Reason: CONSTIPATION Ergocalciferol (Drisdol -) 50,000 unit PO Q7D [facility] Last Admin: 11/29/18 09:39 Dose: 50,000 unit Fluticasone Propionate (Flonase -) 2 spray NS DAILY [facility] Last Admin: 12/01/18 09:52 Dose: 2 spray Gabapentin (Neurontin -) 300 mg PO BID [facility] Last Admin: 12/01/18 09:51 Dose: 300 mg Heparin Sodium (Porcine) (Heparin -) 5,000 unit SQ TID [facility] Last Admin: 12/01/18 13:45 Dose: 5,000 unit Vancomycin HCl (Vancomycin (Pre-Docked)) 1,000 mg in 250 mls @ 166.667 mls/hr IVPB Q12H [facility]; Protocol Last Admin: 12/01/18 14:11 Dose: 166.667 mls/hr Meropenem 1 gm/ Dextrose 100 mls @ 200 mls/hr IVPB Q8H-IV [facility] Last Admin: 12/01/18 09:52 Dose: 200 mls/hr Methadone HCl 40 mg/ Methadone (HCl 30 mg/ Methadone HCl 5 mg) 75 mg PO DAILY@ 0600 [facility] Last Admin: 12/01/18 06:11 Dose: 75 mg Multivitamins/Minerals/Vitamin C (Tab-A-Vit -) 1 tab PO DAILY [facility] Last Admin: 12/01/18 09:51 Dose: 1 tab Trazodone HCl (Desyrel -) 100 mg PO HS [facility] Last Admin: 11/30/18 21:33 Dose: 100 mg ASSESSMENT/PLAN: 58 y.o. PMH HTN, HIV, OM s/p I&D 2017, IVDA (heroine & cocaine), on methadone, cirrhosis d/t HCV s/p HCV tx, thrombocytopenia presented for LLE edema found to have OM of left 1st digit, s/p amputation. #Left 1st digit OM w/ LLE Cellulitis -S/p LLE 1st digit amputation -Pre surgical Wound cx + polymicrobial, operative wound cx + for coag neg staph. -Bone cx: growing Pseudomonas, enterococcus -C/w abx Vanc, added Meropenem- will continue x5wks; PICC placed 11/30/18 -ID (Dr. Mcbride) following -Podiatry (Dr. Kaiser) following #Pain control -Tylenol w/codeine PRN BID -Tylenol 650 q6h PRN #Thrombocytopenia -107 today -No active bleeds #HIV -C/w HAART #Hx of Cirrhosis -Due to HCV -S/p treatment #Hx of IVDA (Heroin) -On Methadone 75mg daily #Hx of HTN, Controlled -c/w Amlodipine #FEN -No Standing Fluids -Replete Lytes PRN -regular diet #DVT PPx -SCDs #Dispo Pending SNF placement ATTENDING PHYSICIAN STATEMENT I saw and evaluated the patient. I reviewed the resident's note and discussed the case with the resident. I agree with the resident's findings and plan as documented. SUBJECTIVE: OBJECTIVE: ASSESSMENT AND PLAN:
--- NOTE | 2018-12-01 16:10 | PN ---
Progress Note, Physician History of Present Illness: Pt doing well. Pain in Lt foot controlled. Remains afebrile. Has no specific complaints. Tolerating antibiotics. - Current Medication List Current Medications: Active Medications Acetaminophen (Tylenol -) 650 mg PO Q6H PRN PRN Reason: PAIN Acetaminophen/Codeine Phosphate (Tylenol # 3 -) 1 tab PO Q12H PRN PRN Reason: PAIN LEVEL 6-10 Last Admin: 12/01/18 13:45 Dose: 1 tab Amlodipine Besylate (Norvasc -) 5 mg PO DAILY [facility] Last Admin: 12/01/18 09:51 Dose: 5 mg Bacitracin (Bacitracin -) 1 applic TP BID [facility] Last Admin: 12/01/18 09:52 Dose: Not Given Docusate Sodium (Colace -) 100 mg PO TID PRN PRN Reason: CONSTIPATION Ergocalciferol (Drisdol -) 50,000 unit PO Q7D [facility] Last Admin: 11/29/18 09:39 Dose: 50,000 unit Fluticasone Propionate (Flonase -) 2 spray NS DAILY [facility] Last Admin: 12/01/18 09:52 Dose: 2 spray Gabapentin (Neurontin -) 300 mg PO BID [facility] Last Admin: 12/01/18 09:51 Dose: 300 mg Heparin Sodium (Porcine) (Heparin -) 5,000 unit SQ TID [facility] Last Admin: 12/01/18 13:45 Dose: 5,000 unit Vancomycin HCl (Vancomycin (Pre-Docked)) 1,000 mg in 250 mls @ 166.667 mls/hr IVPB Q12H [facility]; Protocol Last Admin: 12/01/18 14:11 Dose: 166.667 mls/hr Meropenem 1 gm/ Dextrose 100 mls @ 200 mls/hr IVPB Q8H-IV [facility] Last Admin: 12/01/18 09:52 Dose: 200 mls/hr Methadone HCl 40 mg/ Methadone (HCl 30 mg/ Methadone HCl 5 mg) 75 mg PO DAILY@ 0600 [facility] Last Admin: 12/01/18 06:11 Dose: 75 mg Multivitamins/Minerals/Vitamin C (Tab-A-Vit -) 1 tab PO DAILY [facility] Last Admin: 12/01/18 09:51 Dose: 1 tab Trazodone HCl (Desyrel -) 100 mg PO HS [facility] Last Admin: 11/30/18 21:33 Dose: 100 mg - Objective Vital Signs: Vital Signs Temperature 98.1 F 12/01/18 15:22 Pulse Rate 61 12/01/18 15:22 Respiratory Rate 20 12/01/18 15:22 Blood Pressure 120/58 L 12/01/18 15:22 O2 Sat by Pulse Oximetry (%) 97 12/01/18 09:00 Constitutional: Yes: No Distress, Calm Cardiovascular: Yes: Regular Rate and Rhythm Respiratory: Yes: Regular Gastrointestinal: Yes: Normal Bowel Sounds, Soft Genitourinary: Yes: WNL Extremities: Yes: Amputation Wound/Incision: Yes: Dressing Dry and Intact (Lt foot edema/erythema/mild tenderness, Lt hallux amputated) Neurological: Yes: Alert, Oriented Labs: CBC, BMP 12/01/18 08:00 12/01/18 08:00 INR, PTT INR 1.15 (0.83-1.09) H 11/21/18 15:37 Microbiology 11/27/18 15:00 Bone Gram Stain - Final 11/27/18 15:00 Bone Tissue Culture - Final Pseudomonas Aeruginosa Enterococcus Faecalis 11/27/18 15:00 Bone Anaerobic Culture - Final NO ANAEROBES WERE ISOLATED 11/27/18 15:00 Foot - Left Gram Stain - Final 11/27/18 15:00 Foot - Left Wound Culture - Final Staphylococcus Coagulase Neg 11/21/18 15:35 Blood - Peripheral Venous Blood Culture - Final NO GROWTH AFTER 5 DAYS INCUBATION 11/21/18 15:34 Blood - Peripheral Venous Blood Culture - Final NO GROWTH AFTER 5 DAYS INCUBATION 11/21/18 15:41 Wound Gram Stain - Final 11/21/18 15:41 Wound Wound Culture - Final Klebsiella Pneumoniae Staphylococcus Coagulase Neg Diphtheroid/Corynebacterium Enterococcus Faecalis 11/21/18 15:41 Urine - Urine Clean Catch Urine Culture - Final Group D Strep Or Entero Coccus Staphylococcus Coagulase Neg Problem List - Problems (1) Foot ulcer, left Code(s): L97.529 - NON-PRESSURE CHRONIC ULCER OTH PRT LEFT FOOT W UNSP SEVERITY Qualifiers: Non-pressure ulcer stage: with necrosis of muscle Qualified Code(s): L97.523 - Non-pressure chronic ulcer of other part of left foot with necrosis of muscle (2) Cirrhosis of liver Code(s): K74.60 - UNSPECIFIED CIRRHOSIS OF LIVER (3) HIV (human immunodeficiency virus infection) Code(s): Z21 - ASYMPTOMATIC HUMAN IMMUNODEFICIENCY VIRUS INFECTION STATUS (4) Hepatitis C virus infection resolved after antiviral drug therapy Code(s): Z86.19 - PERSONAL HISTORY OF OTHER INFECTIOUS AND PARASITIC DISEASES (5) Methadone maintenance therapy patient Code(s): F11.20 - OPIOID DEPENDENCE, UNCOMPLICATED Assessment/Plan Lt foot OM s/p hallux amputation HIV on HAART Hep C Liver cirrhosis Hx of heroin abuse on methadone -- continue Meropenem/Vancomycin -- Vancomycin trough prior to 4th dose, monitor renal function -- continue wound care -- Podiatry following
[2018-12-01] MEDS: traZODone HCL 50 MG TABLET (FP) PO SCH (21:13)
[2018-12-01] MEDS ORDERED: PT OWN MED DRAWER 7, Y5N ONE (21:50)
[2018-12-02] MEDS ORDERED: MEROPENEM 1 GM VIAL (RESTRICTED TO ID) IVPB ONE ×3 (02:03→18:32)
[2018-12-02] MEDS ORDERED: DEXTROSE 5%-WATER 100 ML IVPB ONE ×3 (02:03→18:32)
[2018-12-02] MEDS: MEROPENEM 1 GM in DEXTROSE 5%-WATER 100 ML IVPB SCH ×3 (02:24→18:35)
[2018-12-02] MEDS: VANCOMYCIN 1 GRAM (PRE-DOCKED) 1,000 MG/250 ML BAG IVPB SCH ×2 (03:55→15:53)
[2018-12-02] MEDS ORDERED: METHADONE HCL 10 MG TABLET ONE (05:48)
[2018-12-02] MEDS ORDERED: METHADONE HCL 5 MG TABLET ONE (05:49)
[2018-12-02] MEDS ORDERED: METHADONE HCL 40 MG DISPERSABLE TABLET ONE (05:49)
[2018-12-02] MEDS: METHADONE 40 MG, METHADONE 30 MG, METHADONE 5 MG PO SCH (05:52)
[2018-12-02] MEDS: HEPARIN NA (PORCINE) 5,000 UNITS/ML 1ML VIAL SQ SCH ×4 (05:54→21:02)
[2018-12-02] MEDS ORDERED: PT OWN MED DRAWER 7, Y5N ONE ×3 (09:07→18:33)
[2018-12-02] MEDS: amLODIPine BESYLATE 5 MG TABLET (FP) PO SCH (09:42)
[2018-12-02] MEDS: GABAPENTIN 300 MG CAPSULE (FP) PO SCH ×2 (09:42→21:02)
[2018-12-02] MEDS: EMTRICITAB/RILPIVIRI/TENOF ALA (ODEFSEY) TABLET PO SCH (09:42)
[2018-12-02] MEDS: MULTIVITAMINS (DAILY MVI) TABLET (FP) PO SCH (09:43)
[2018-12-02] MEDS: FLUTICASONE PROP 0.05% 16 GM NASAL SPRAY NS SCH (09:44)
--- NOTE | 2018-12-02 10:53 | PN ---
Progress Note (short form) - Note Progress Note: SUBJECTIVE: Tolerating Left hallux discomfort s/p Surgery. No fever/chills. Confused about whether he wants SNF for IV Abx versus home with home infusion. OBJECTIVE: Afebrile, Hemodynamically Stable Last Vital Signs Temp Pulse Resp BP Pulse Ox 98.4 F 58 L 20 115/58 L 97 12/02/18 08:54 12/02/18 08:54 12/02/18 08:54 12/02/18 08:54 12/01/18 21:00 Heart - S1, S2, SM Lungs - clear to auscultation Abdomen - Soft, non-tender. Extremities - Venous stasis skin changes. L great toe/foot dressed. No calf swelling/tenderness. Extremities well perfused. Finger clubbing. Laboratory Results - last 24 hr 12/01/18 12/02/18 08:00 00:15 WBC 3.9 L RBC 4.19 Hgb 13.0 Hct 39.0 MCV 93.2 MCH 31.1 MCHC 33.4 RDW 14.0 Plt Count 107 L MPV 8.5 Absolute Neuts (auto) 1.6 Neutrophils % 40.8 L Lymphocytes % 42.3 H Monocytes % 11.8 H Eosinophils % 4.3 Basophils % 0.8 Nucleated RBC % 0 Vancomycin Pre-Dose 12.0 L Current Medications Generic Name Dose Route Start Last Admin Trade Name Freq PRN Reason Stop Dose Admin Acetaminophen 650 mg 11/27/18 15:45 Tylenol - PO Q6H PRN PAIN Amlodipine Besylate 5 mg 11/28/18 10:00 12/02/18 09:42 Norvasc - PO 5 mg DAILY [facility] Administration Bacitracin 1 applic 11/27/18 22:00 12/01/18 21:14 Bacitracin - TP Not Given BID [facility]AN Docusate Sodium 100 mg 11/27/18 15:45 Colace - PO TID PRN CONSTIPATION Ergocalciferol 50,000 unit 11/29/18 10:00 11/29/18 09:39 Drisdol - PO 50,000 unit Q7D [facility] Administration Fluticasone Propionate 2 spray 11/28/18 10:00 12/02/18 09:44 Flonase - NS 2 spray DAILY [facility] Administration Gabapentin 300 mg 11/27/18 22:00 12/02/18 09:42 Neurontin - PO 300 mg BID [facility] Administration Heparin Sodium (Porcine) 5,000 unit 11/28/18 22:00 12/02/18 05:54 Heparin - SQ 5,000 unit TID [facility] Administration Vancomycin HCl 1,000 mg in 250 mls @ 166.667 mls/hr 11/30/18 15:00 12/02/18 03:55 Vancomycin (Pre-Docked) IVPB 166.667 mls/hr Q12H [facility] Administration Protocol Meropenem 1 gm/ Dextrose 100 mls @ 200 mls/hr 11/30/18 18:00 12/02/18 09:43 IVPB 200 mls/hr Q8H-IV [facility] Administration Methadone HCl 40 mg/ Methadone 75 mg 11/27/18 16:30 12/02/18 05:52 HCl 30 mg/ Methadone HCl 5 mg PO 75 mg DAILY@0600 [facility] Administration Multivitamins/Minerals/Vitamin C 1 tab 11/28/18 10:00 12/02/18 09:43 Tab-A-Vit - PO 1 tab DAILY [facility] Administration Trazodone HCl 100 mg 11/27/18 22:00 12/01/18 21:13 Desyrel - PO 100 mg HS [facility] Administration ASSESSMENT AND PLAN: 58 year old male with HIV (on HAART), Liver Cirrhosis secondary to Hepatitis C, Substance Abuse (Heroin) on Methadone, Hx of OM, presents with draining L Hallux ulcer. 1. L Hallux Cellulitis with Osteomyelitis of distal tuft. POD 5 s/p L great toe partial amputation Wound Cx - polymicrobial Surgical Cx -coag neg staph, Bone Cx - pseudomonas, GpD Strep/Enterococcus On Day 9 of Ceftriaxone/Vanco, Abx were switched by ID to Meropenem/Vanco on for 5 additional weeks. Afebrile, Hemodynamically Stable PICC placed, awaiting placement versus home with infusion sevices. Case management aware re: patient is medically clear for discharge. Awaiting Dispo. 2. UTI - Urine Cx positive for Staph coag neg/Enterococcus < 10,000 CFU/ml each Has been receiving Ceftriaxone/Vancomycin for 9 days - transitioned to Vanco/ Meropenem as above. 3. Thrombocytopenia - likely reactive. Stable. 4. HIV on HAART - Continue. 5. Remote Hx Heroin Use - on Methadone. 6. Cirrhosis sec to Hepatitis C - s/p Treatment. No evidence of decompensation. 7. HTN - Continue Amlodipine. DVT Px - Heparin SQ Dispo - CM working on DC plan involving SNF versus infusion coordination at home. Issue is that 2 antibiotics, administered at 5 different times may be too challenging to coordinate at home. Visit type - Emergency Visit Emergency Visit: Yes ED Registration Date: 11/21/18 Care time: The patient presented to the Emergency Department on the above date and was hospitalized for further evaluation of their emergent condition. - New Patient This patient is new to me today: No - Critical Care Critical Care patient: No - Discharge Referral Referred to [facility] No
[2018-12-02] MEDS: BACITRACIN 15 GM TUBE TOPICAL OINTMENT TP SCH ×2 (11:13→21:02)
[2018-12-02] MEDS: ACETAMINOPHEN 325 MG TABLET (FP) PO PRN (14:44)
[2018-12-02] MEDS ORDERED: traMADol HCL 50 MG TABLET PO ONE (16:12)
--- NOTE | 2018-12-02 16:42 | PN ---
Progress Note, Physician History of Present Illness: Pt is alert, states he feels well. No pain in foot. Remains afebrile. Tolerating antibiotics. - Current Medication List Current Medications: Active Medications Acetaminophen (Tylenol -) 650 mg PO Q6H PRN PRN Reason: PAIN Amlodipine Besylate (Norvasc -) 5 mg PO DAILY [facility] Last Admin: 12/02/18 09:42 Dose: 5 mg Bacitracin (Bacitracin -) 1 applic TP BID [facility] Last Admin: 12/02/18 11:13 Dose: 1 applic Docusate Sodium (Colace -) 100 mg PO TID PRN PRN Reason: CONSTIPATION Ergocalciferol (Drisdol -) 50,000 unit PO Q7D [facility] Last Admin: 11/29/18 09:39 Dose: 50,000 unit Fluticasone Propionate (Flonase -) 2 spray NS DAILY [facility] Last Admin: 12/02/18 09:44 Dose: 2 spray Gabapentin (Neurontin -) 300 mg PO BID [facility] Last Admin: 12/02/18 09:42 Dose: 300 mg Heparin Sodium (Porcine) (Heparin -) 5,000 unit SQ TID [facility] Last Admin: 12/02/18 14:49 Dose: 5,000 unit Vancomycin HCl (Vancomycin (Pre-Docked)) 1,000 mg in 250 mls @ 166.667 mls/hr IVPB Q12H [facility]; Protocol Last Admin: 12/02/18 15:53 Dose: 166.667 mls/hr Meropenem 1 gm/ Dextrose 100 mls @ 200 mls/hr IVPB Q8H-IV [facility] Last Admin: 12/02/18 09:43 Dose: 200 mls/hr Methadone HCl 40 mg/ Methadone (HCl 30 mg/ Methadone HCl 5 mg) 75 mg PO DAILY@ 0600 [facility] Last Admin: 12/02/18 05:52 Dose: 75 mg Multivitamins/Minerals/Vitamin C (Tab-A-Vit -) 1 tab PO DAILY [facility] Last Admin: 12/02/18 09:43 Dose: 1 tab Trazodone HCl (Desyrel -) 100 mg PO HS [facility] Last Admin: 12/01/18 21:13 Dose: 100 mg - Objective Vital Signs: Vital Signs Temperature 98.3 F 12/02/18 14:34 Pulse Rate 71 12/02/18 14:34 Respiratory Rate 20 12/02/18 14:34 Blood Pressure 110/67 12/02/18 14:34 O2 Sat by Pulse Oximetry (%) 97 12/01/18 21:00 Constitutional: Yes: No Distress, Calm Cardiovascular: Yes: Regular Rate and Rhythm Respiratory: Yes: Regular Gastrointestinal: Yes: Normal Bowel Sounds, Soft Genitourinary: Yes: WNL Wound/Incision: Yes: Dressing Dry and Intact Labs: CBC, BMP 12/01/18 08:00 12/01/18 08:00 INR, PTT INR 1.15 (0.83-1.09) H 11/21/18 15:37 Microbiology 11/27/18 15:00 Bone Gram Stain - Final 11/27/18 15:00 Bone Tissue Culture - Final Pseudomonas Aeruginosa Enterococcus Faecalis 11/27/18 15:00 Bone Anaerobic Culture - Final NO ANAEROBES WERE ISOLATED 11/27/18 15:00 Foot - Left Gram Stain - Final 11/27/18 15:00 Foot - Left Wound Culture - Final Staphylococcus Coagulase Neg 11/21/18 15:35 Blood - Peripheral Venous Blood Culture - Final NO GROWTH AFTER 5 DAYS INCUBATION 11/21/18 15:34 Blood - Peripheral Venous Blood Culture - Final NO GROWTH AFTER 5 DAYS INCUBATION 11/21/18 15:41 Wound Gram Stain - Final 11/21/18 15:41 Wound Wound Culture - Final Klebsiella Pneumoniae Staphylococcus Coagulase Neg Diphtheroid/Corynebacterium Enterococcus Faecalis 11/21/18 15:41 Urine - Urine Clean Catch Urine Culture - Final Group D Strep Or Entero Coccus Staphylococcus Coagulase Neg Problem List - Problems (1) Foot ulcer, left Code(s): L97.529 - NON-PRESSURE CHRONIC ULCER OTH PRT LEFT FOOT W UNSP SEVERITY Qualifiers: Non-pressure ulcer stage: with necrosis of muscle Qualified Code(s): L97.523 - Non-pressure chronic ulcer of other part of left foot with necrosis of muscle (2) Cirrhosis of liver Code(s): K74.60 - UNSPECIFIED CIRRHOSIS OF LIVER (3) HIV (human immunodeficiency virus infection) Code(s): Z21 - ASYMPTOMATIC HUMAN IMMUNODEFICIENCY VIRUS INFECTION STATUS (4) Hepatitis C virus infection resolved after antiviral drug therapy Code(s): Z86.19 - PERSONAL HISTORY OF OTHER INFECTIOUS AND PARASITIC DISEASES (5) Methadone maintenance therapy patient Code(s): F11.20 - OPIOID DEPENDENCE, UNCOMPLICATED Assessment/Plan Lt foot OM s/p hallux amputation HIV on HAART Hep C Liver cirrhosis Hx of heroin abuse on methadone -- continue Meropenem/Vancomycin as discussed, trough level noted/continue monitor renal function -- weekly cbc, bmp, esr, crp -- continue wound care -- Podiatry follow up
[2018-12-02] MEDS: traZODone HCL 50 MG TABLET (FP) PO SCH (21:02)
[2018-12-03] MEDS ORDERED: DEXTROSE 5%-WATER 100 ML IVPB ONE ×3 (01:13→17:47)
[2018-12-03] MEDS ORDERED: MEROPENEM 1 GM VIAL (RESTRICTED TO ID) IVPB ONE ×3 (01:13→17:47)
[2018-12-03] MEDS: MEROPENEM 1 GM in DEXTROSE 5%-WATER 100 ML IVPB SCH ×3 (01:20→17:50)
[2018-12-03] MEDS: VANCOMYCIN 1 GRAM (PRE-DOCKED) 1,000 MG/250 ML BAG IVPB SCH ×2 (02:32→15:50)
[2018-12-03] MEDS ORDERED: METHADONE HCL 40 MG DISPERSABLE TABLET ONE (06:09)
[2018-12-03] MEDS ORDERED: METHADONE HCL 5 MG TABLET ONE (06:09)
[2018-12-03] MEDS ORDERED: METHADONE HCL 10 MG TABLET ONE (06:09)
[2018-12-03] MEDS: METHADONE 40 MG, METHADONE 30 MG, METHADONE 5 MG PO SCH (06:22)
[2018-12-03] MEDS: HEPARIN NA (PORCINE) 5,000 UNITS/ML 1ML VIAL SQ SCH ×3 (06:23→21:45)
[2018-12-03] MEDS ORDERED: PT OWN MED DRAWER 7, Y5N ONE ×2 (10:27→10:47)
--- NOTE | 2018-12-03 10:30 | PN ---
Progress Note, Physician History of Present Illness: stable no new issues - Current Medication List Current Medications: Active Medications Acetaminophen (Tylenol -) 650 mg PO Q6H PRN PRN Reason: PAIN Amlodipine Besylate (Norvasc -) 5 mg PO DAILY [facility] Last Admin: 12/02/18 09:42 Dose: 5 mg Bacitracin (Bacitracin -) 1 applic TP BID [facility] Last Admin: 12/02/18 21:02 Dose: Not Given Docusate Sodium (Colace -) 100 mg PO TID PRN PRN Reason: CONSTIPATION Ergocalciferol (Drisdol -) 50,000 unit PO Q7D [facility] Last Admin: 11/29/18 09:39 Dose: 50,000 unit Fluticasone Propionate (Flonase -) 2 spray NS DAILY [facility] Last Admin: 12/02/18 09:44 Dose: 2 spray Gabapentin (Neurontin -) 300 mg PO BID [facility] Last Admin: 12/02/18 21:02 Dose: 300 mg Heparin Sodium (Porcine) (Heparin -) 5,000 unit SQ TID [facility] Last Admin: 12/03/18 06:23 Dose: 5,000 unit Vancomycin HCl (Vancomycin (Pre-Docked)) 1,000 mg in 250 mls @ 166.667 mls/hr IVPB Q12H [facility]; Protocol Last Admin: 12/03/18 02:32 Dose: 166.667 mls/hr Meropenem 1 gm/ Dextrose 100 mls @ 200 mls/hr IVPB Q8H-IV [facility] Last Admin: 12/03/18 01:20 Dose: 200 mls/hr Methadone HCl 40 mg/ Methadone (HCl 30 mg/ Methadone HCl 5 mg) 75 mg PO DAILY@ 0600 [facility] Last Admin: 12/03/18 06:22 Dose: 75 mg Multivitamins/Minerals/Vitamin C (Tab-A-Vit -) 1 tab PO DAILY [facility] Last Admin: 12/02/18 09:43 Dose: 1 tab Trazodone HCl (Desyrel -) 100 mg PO HS [facility] Last Admin: 12/02/18 21:02 Dose: 100 mg - Objective Vital Signs: Vital Signs Temperature 98 F 12/03/18 05:51 Pulse Rate 60 12/03/18 05:51 Respiratory Rate 18 12/03/18 05:51 Blood Pressure 126/69 12/03/18 05:51 O2 Sat by Pulse Oximetry (%) 98 12/02/18 21:00 Constitutional: Yes: No Distress, Calm Cardiovascular: Yes: Regular Rate and Rhythm Respiratory: Yes: Regular, CTA Bilaterally Gastrointestinal: Yes: Normal Bowel Sounds, Soft Musculoskeletal: Yes: WNL Extremities: Yes: WNL Wound/Incision: Yes: Dressing Dry and Intact Neurological: Yes: Alert, Oriented Psychiatric: Yes: Alert, Oriented Labs: CBC, BMP 12/01/18 08:00 12/01/18 08:00 INR, PTT INR 1.15 (0.83-1.09) H 11/21/18 15:37 Assessment/Plan roblem List - Problems (1) Foot ulcer, left Code(s): L97.529 - NON-PRESSURE CHRONIC ULCER OTH PRT LEFT FOOT W UNSP SEVERITY Qualifiers: Non-pressure ulcer stage: with necrosis of muscle Qualified Code(s): L97.523 - Non-pressure chronic ulcer of other part of left foot with necrosis of muscle (2) Cirrhosis of liver Code(s): K74.60 - UNSPECIFIED CIRRHOSIS OF LIVER (3) HIV (human immunodeficiency virus infection) Code(s): Z21 - ASYMPTOMATIC HUMAN IMMUNODEFICIENCY VIRUS INFECTION STATUS (4) Hepatitis C virus infection resolved after antiviral drug therapy Code(s): Z86.19 - PERSONAL HISTORY OF OTHER INFECTIOUS AND PARASITIC DISEASES (5) Methadone maintenance therapy patient Code(s): F11.20 - OPIOID DEPENDENCE, UNCOMPLICATED Assessment/Plan Lt foot OM s/p hallux amputation HIV on HAART Hep C Liver cirrhosis Hx of heroin abuse on methadone -- continue Meropenem/Vancomycin as discussed, trough level noted/continue monitor renal function -- weekly cbc, bmp, esr, crp complete the course
[2018-12-03] MEDS: FLUTICASONE PROP 0.05% 16 GM NASAL SPRAY NS SCH (10:46)
[2018-12-03] MEDS: BACITRACIN 15 GM TUBE TOPICAL OINTMENT TP SCH ×2 (10:47→21:46)
[2018-12-03] MEDS: GABAPENTIN 300 MG CAPSULE (FP) PO SCH ×3 (10:48→21:46)
[2018-12-03] MEDS: MULTIVITAMINS (DAILY MVI) TABLET (FP) PO SCH (10:48)
[2018-12-03] MEDS: amLODIPine BESYLATE 5 MG TABLET (FP) PO SCH (10:49)
[2018-12-03] MEDS: EMTRICITAB/RILPIVIRI/TENOF ALA (ODEFSEY) TABLET PO SCH (10:49)
--- NOTE | 2018-12-03 13:23 | PN ---
Teaching Attending Note Name of Resident: Courtney Mosqueda ATTENDING PHYSICIAN STATEMENT I saw and evaluated the patient. I reviewed the resident's note and discussed the case with the resident. I agree with the resident's findings and plan as documented. SUBJECTIVE: Tolerating Left hallux discomfort s/p Surgery. No fever/chills. Confused about whether he wants SNF for IV Abx versus home with home infusion. OBJECTIVE: Afebrile, Hemodynamically Stable Last Vital Signs Temp Pulse Resp BP Pulse Ox 98.4 F 68 18 109/73 98 12/03/18 10:00 12/03/18 10:00 12/03/18 10:00 12/03/18 10:00 12/02/18 21:00 Heart - S1, S2, SM Lungs - clear to auscultation Abdomen - Soft, non-tender. Extremities - Venous stasis skin changes. L great toe/foot dressed. No calf swelling/tenderness. Extremities well perfused. Finger clubbing. Current Medications Generic Name Dose Route Start Last Admin Trade Name Freq PRN Reason Stop Dose Admin Acetaminophen 650 mg 11/27/18 15:45 Tylenol - PO Q6H PRN PAIN Amlodipine Besylate 5 mg 11/28/18 10:00 12/03/18 10:49 Norvasc - PO 5 mg DAILY [facility] Administration Bacitracin 1 applic 11/27/18 22:00 12/03/18 10:47 Bacitracin - TP 1 applic BID [facility] Administration Docusate Sodium 100 mg 11/27/18 15:45 Colace - PO TID PRN CONSTIPATION Ergocalciferol 50,000 unit 11/29/18 10:00 11/29/18 09:39 Drisdol - PO 50,000 unit Q7D [facility] Administration Fluticasone Propionate 2 spray 11/28/18 10:00 12/03/18 10:46 Flonase - NS 2 spray DAILY [facility] Administration Gabapentin 300 mg 11/27/18 22:00 12/03/18 10:48 Neurontin - PO 300 mg BID [facility] Administration Heparin Sodium (Porcine) 5,000 unit 11/28/18 22:00 12/03/18 06:23 Heparin - SQ 5,000 unit TID [facility] Administration Vancomycin HCl 1,000 mg in 250 mls @ 166.667 mls/hr 11/30/18 15:00 12/03/18 02:32 Vancomycin (Pre-Docked) IVPB 166.667 mls/hr Q12H [facility] Administration Protocol Meropenem 1 gm/ Dextrose 100 mls @ 200 mls/hr 11/30/18 18:00 12/03/18 10:50 IVPB 200 mls/hr Q8H-IV [facility] Administration Methadone HCl 40 mg/ Methadone 75 mg 11/27/18 16:30 12/03/18 06:22 HCl 30 mg/ Methadone HCl 5 mg PO 75 mg DAILY@0600 [facility] Administration Multivitamins/Minerals/Vitamin C 1 tab 11/28/18 10:00 12/03/18 10:48 Tab-A-Vit - PO 1 tab DAILY [facility] Administration Trazodone HCl 100 mg 11/27/18 22:00 12/02/18 21:02 Desyrel - PO 100 mg HS [facility] Administration ASSESSMENT AND PLAN: 58 year old male with HIV (on HAART), Liver Cirrhosis secondary to Hepatitis C, Substance Abuse (Heroin) on Methadone, Hx of OM, presents with draining L Hallux ulcer. 1. L Hallux Cellulitis with Osteomyelitis of distal tuft. POD 6 s/p L great toe partial amputation Wound Cx - polymicrobial Surgical Cx -coag neg staph, Bone Cx - pseudomonas, GpD Strep/Enterococcus On Day 9 of Ceftriaxone/Vanco, Abx were switched by ID to Meropenem/Vanco on for 5 additional weeks. Afebrile, Hemodynamically Stable PICC placed, awaiting SNF placement versus home with infusion services. Case management aware re: patient is medically clear for discharge. Awaiting Dispo. 2. UTI - Urine Cx positive for Staph coag neg/Enterococcus < 10,000 CFU/ml each Has been receiving Ceftriaxone/Vancomycin for 9 days - transitioned to Vanco/ Meropenem as above. 3. Thrombocytopenia - likely reactive. Stable. 4. HIV on HAART - Continue. 5. Remote Hx Heroin Use - on Methadone. 6. Cirrhosis sec to Hepatitis C - s/p Treatment. No evidence of decompensation. 7. HTN - Continue Amlodipine. DVT Px - Heparin SQ Dispo - CM working on DC plan involving SNF versus infusion coordination at home. Issue is that 2 antibiotics, administered at 5 different times may be too challenging to coordinate at home. Referred to SNF and auth requested.
[2018-12-03] MEDS: ACETAMINOPHEN 325 MG TABLET (FP) PO PRN (13:33)
[2018-12-03] MEDS: ACETAMINOPHEN WITH CODEINE 300MG/30MG TABLET PO PRN (17:50)
--- NOTE | 2018-12-03 17:59 | PN ---
Physical Exam: SUBJECTIVE: Patient seen and examined. In no acute distress. Doing well, no complaints at this time. OBJECTIVE: Vital Signs Period Temp Pulse Resp BP Sys/Forman Pulse Ox Last 24 Hr 98 F-98.7 F 60-72 16-20 109-152/66-78 98 GENERAL: The patient is awake, alert, and fully oriented, in no acute distress. LUNGS: CTABL. No incr work of breathing. No wheezing noted. HEART: Regular rate and rhythm, S1, S2 heard. No murmurs appreciated. ABDOMEN: Soft, nontender, nondistended, normoactive bowel sounds. No masses palpated. EXTREMITIES: b/l LE 1+ edema, erythematous, anterior cellulitis present LLE. LLE s/p 1st digit amputation; Dressing C/D/I to LLE. Finger clubbing noted b/l. Active Medications Current Medications Acetaminophen (Tylenol -) 650 mg PO Q6H PRN PRN Reason: PAIN Acetaminophen/Codeine Phosphate (Tylenol # 3 -) 1 tab PO Q12H PRN PRN Reason: PAIN LEVEL 7 - 10 Last Admin: 12/03/18 17:50 Dose: 1 tab Amlodipine Besylate (Norvasc -) 5 mg PO DAILY [facility] Last Admin: 12/03/18 10:49 Dose: 5 mg Bacitracin (Bacitracin -) 1 applic TP BID [facility] Last Admin: 12/03/18 10:47 Dose: 1 applic Docusate Sodium (Colace -) 100 mg PO TID PRN PRN Reason: CONSTIPATION Ergocalciferol (Drisdol -) 50,000 unit PO Q7D [facility] Last Admin: 11/29/18 09:39 Dose: 50,000 unit Fluticasone Propionate (Flonase -) 2 spray NS DAILY [facility] Last Admin: 12/03/18 10:46 Dose: 2 spray Gabapentin (Neurontin -) 300 mg PO BID [facility] Last Admin: 12/03/18 15:16 Dose: Not Given Heparin Sodium (Porcine) (Heparin -) 5,000 unit SQ TID [facility] Last Admin: 12/03/18 13:33 Dose: 5,000 unit Vancomycin HCl (Vancomycin (Pre-Docked)) 1,000 mg in 250 mls @ 166.667 mls/hr IVPB Q12H [facility]; Protocol Last Admin: 12/03/18 15:50 Dose: 166.667 mls/hr Meropenem 1 gm/ Dextrose 100 mls @ 200 mls/hr IVPB Q8H-IV [facility] Last Admin: 12/03/18 17:50 Dose: 200 mls/hr Methadone HCl 40 mg/ Methadone (HCl 30 mg/ Methadone HCl 5 mg) 75 mg PO DAILY@ 0600 [facility] Last Admin: 12/03/18 06:22 Dose: 75 mg Multivitamins/Minerals/Vitamin C (Tab-A-Vit -) 1 tab PO DAILY [facility] Last Admin: 12/03/18 10:48 Dose: 1 tab Trazodone HCl (Desyrel -) 100 mg PO HS [facility] Last Admin: 12/02/18 21:02 Dose: 100 mg ASSESSMENT/PLAN: 58 y.o. PMH HTN, HIV, OM s/p I&D 2016, IVDA (heroine & cocaine), on methadone, cirrhosis d/t HCV s/p HCV tx, thrombocytopenia presented for LLE edema found to have OM of left 1st digit, s/p amputation. #Left 1st digit OM w/ LLE Cellulitis -S/p LLE 1st digit amputation -Pre surgical Wound cx + polymicrobial, operative wound cx + for coag neg staph. -Bone cx: growing Pseudomonas, enterococcus -C/w abx Vanc, added Meropenem- will continue x5wks; PICC placed 11/30/18 -ID (Dr. Mcbride) following -Podiatry (Dr. Kaiser) following -Wound care #Pain control -Tylenol w/codeine PRN BID -Tylenol 650 q6h PRN #Thrombocytopenia -No active bleeds #HIV -C/w HAART #Hx of Cirrhosis -Due to HCV -S/p treatment #Hx of IVDA (Heroin) -On Methadone 75mg daily #Hx of HTN, Controlled -c/w Amlodipine #FEN -No Standing Fluids -Replete Lytes PRN -regular diet #DVT PPx -SCDs #Dispo Pending SNF placement vs. home w/ abx Visit type - Emergency Visit Emergency Visit: No - New Patient This patient is new to me today: No - Critical Care Critical Care patient: No ATTENDING PHYSICIAN STATEMENT I saw and evaluated the patient. I reviewed the resident's note and discussed the case with the resident. I agree with the resident's findings and plan as documented. SUBJECTIVE: OBJECTIVE: ASSESSMENT AND PLAN:
[2018-12-03] MEDS: traZODone HCL 50 MG TABLET (FP) PO SCH (21:46)
[2018-12-04] MEDS ORDERED: MEROPENEM 1 GM VIAL (RESTRICTED TO ID) IVPB ONE ×2 (01:36→10:30)
[2018-12-04] MEDS ORDERED: DEXTROSE 5%-WATER 100 ML IVPB ONE ×2 (01:36→10:30)
[2018-12-04] MEDS: MEROPENEM 1 GM in DEXTROSE 5%-WATER 100 ML IVPB SCH ×2 (01:47→10:35)
[2018-12-04] MEDS: VANCOMYCIN 1 GRAM (PRE-DOCKED) 1,000 MG/250 ML BAG IVPB SCH ×2 (02:53→15:04)
[2018-12-04] MEDS ORDERED: METHADONE HCL 10 MG TABLET ONE (06:30)
[2018-12-04] MEDS ORDERED: METHADONE HCL 40 MG DISPERSABLE TABLET ONE (06:31)
[2018-12-04] MEDS ORDERED: METHADONE HCL 5 MG TABLET ONE (06:31)
[2018-12-04] MEDS: HEPARIN NA (PORCINE) 5,000 UNITS/ML 1ML VIAL SQ SCH ×3 (06:32→14:33)
[2018-12-04] MEDS: METHADONE 40 MG, METHADONE 30 MG, METHADONE 5 MG PO SCH (06:33)
[2018-12-04] MEDS: FLUTICASONE PROP 0.05% 16 GM NASAL SPRAY NS SCH (10:26)
[2018-12-04] MEDS: BACITRACIN 15 GM TUBE TOPICAL OINTMENT TP SCH (10:26)
[2018-12-04] MEDS ORDERED: PT OWN MED DRAWER 7, Y5N ONE ×3 (10:30→14:29)
[2018-12-04] MEDS: ACETAMINOPHEN WITH CODEINE 300MG/30MG TABLET PO PRN (10:36)
[2018-12-04] MEDS: amLODIPine BESYLATE 5 MG TABLET (FP) PO SCH (10:36)
[2018-12-04] MEDS: MULTIVITAMINS (DAILY MVI) TABLET (FP) PO SCH (10:36)
[2018-12-04] MEDS: GABAPENTIN 300 MG CAPSULE (FP) PO SCH (10:36)
--- NOTE | 2018-12-04 11:59 | PN ---
Progress Note, Physician - Current Medication List Current Medications: Active Medications Acetaminophen (Tylenol -) 650 mg PO Q6H PRN PRN Reason: PAIN Acetaminophen/Codeine Phosphate (Tylenol # 3 -) 1 tab PO Q12H PRN PRN Reason: PAIN LEVEL 7 - 10 Last Admin: 12/04/18 10:36 Dose: 1 tab Amlodipine Besylate (Norvasc -) 5 mg PO DAILY [facility] Last Admin: 12/04/18 10:36 Dose: 5 mg Bacitracin (Bacitracin -) 1 applic TP BID [facility] Last Admin: 12/04/18 10:26 Dose: 1 applic Docusate Sodium (Colace -) 100 mg PO TID PRN PRN Reason: CONSTIPATION Ergocalciferol (Drisdol -) 50,000 unit PO Q7D [facility] Last Admin: 11/29/18 09:39 Dose: 50,000 unit Fluticasone Propionate (Flonase -) 2 spray NS DAILY [facility] Last Admin: 12/04/18 10:26 Dose: 2 spray Gabapentin (Neurontin -) 300 mg PO BID [facility] Last Admin: 12/04/18 10:36 Dose: 300 mg Heparin Sodium (Porcine) (Heparin -) 5,000 unit SQ TID [facility] Last Admin: 12/04/18 06:37 Dose: Not Given Vancomycin HCl (Vancomycin (Pre-Docked)) 1,000 mg in 250 mls @ 166.667 mls/hr IVPB Q12H [facility]; Protocol Last Admin: 12/04/18 02:53 Dose: 166.667 mls/hr Meropenem 1 gm/ Dextrose 100 mls @ 200 mls/hr IVPB Q8H-IV [facility] Last Admin: 12/04/18 10:35 Dose: 200 mls/hr Methadone HCl 40 mg/ Methadone (HCl 30 mg/ Methadone HCl 5 mg) 75 mg PO DAILY@ 0600 [facility] Last Admin: 12/04/18 06:33 Dose: 75 mg Multivitamins/Minerals/Vitamin C (Tab-A-Vit -) 1 tab PO DAILY [facility] Last Admin: 12/04/18 10:36 Dose: 1 tab Trazodone HCl (Desyrel -) 100 mg PO HS [facility] Last Admin: 12/03/18 21:46 Dose: 100 mg - Objective Vital Signs: Vital Signs Temperature 98.2 F 12/04/18 06:00 Pulse Rate 58 L 12/04/18 06:00 Respiratory Rate 20 12/04/18 06:00 Blood Pressure 133/75 12/04/18 06:00 O2 Sat by Pulse Oximetry (%) 98 12/02/18 21:00 Labs: CBC, BMP 12/01/18 08:00 12/01/18 08:00 INR, PTT INR 1.15 (0.83-1.09) H 11/21/18 15:37
[2018-12-04] MEDS: EMTRICITAB/RILPIVIRI/TENOF ALA (ODEFSEY) TABLET PO SCH (13:28)
[2018-12-04] MEDS ORDERED: MUPIROCIN 2% TOPICAL OINTMENT 22 GM TUBE TP SCH ×3 (14:00→22:00)
[2018-12-04 15:20] VITALS: BP 137/76; PULSE 68; TEMP 98.7
[2018-12-06] MEDS ORDERED: MUPIROCIN 2% TOPICAL OINTMENT 22 GM TUBE TP SCH (10:00)
== END 2018-12-04 17:04 | DRG 314 ==
LOC: JER 12:40 → JERBED 18:38 → J8W 20:55
PROVIDERS: ADMIT Internal Medicine; ATTEND Internal Medicine
PROC: 0Y6Q0Z1 Detachment at Left 1st Toe, High, Open Approach (ICD-10-PCS; principal; 2018-11-27 13:00)
PROC: 02HV33Z Insertion of Infusion Device into Superior Vena Cava, Percutaneous Approach (ICD-10-PCS; 2018-11-30)
PROC: B518ZZA Fluoroscopy of Superior Vena Cava, Guidance (ICD-10-PCS; 2018-11-30)
DX: E11.69 Type 2 diabetes mellitus with other specified complication (principal); Z21 Asymptomatic human immunodeficiency virus [HIV] infection status; F11.10 Opioid abuse, uncomplicated; B18.2 Chronic viral hepatitis C; I51.7 Cardiomegaly; I44.0 Atrioventricular block, first degree; L97.529 Non-pressure chronic ulcer of other part of left foot with unspecified severity; L03.116 Cellulitis of left lower limb; N39.0 Urinary tract infection, site not specified; D69.6 Thrombocytopenia, unspecified; K74.60 Unspecified cirrhosis of liver; I10 Essential (primary) hypertension; B95.8 Unspecified staphylococcus as the cause of diseases classified elsewhere; B95.2 Enterococcus as the cause of diseases classified elsewhere
CPT/HCPCS: 36415; 36569; 71046-TC-FY; 73630-TC-LT; 73723-LT; 77001-TC-FY; 80048; 80053; 81003; 82962; 83036; 83735; 84100; 85025; 85027; 85610; 85651; 85730; 86140; 86850; 86900; 86901; 87040; 87070; 87075; 87077; 87086; 87186; 87205; 88305-TC; 88311-TC; 93005; 93010; 93923; 93926-TC; 93971-TC; 94760; 99282-25; A9579; C1751; G0480; J1644

== ENCOUNTER → 2019-01-11 | Outpatient (CLI) | payer OTHER | LOC: YHH 15:18 ==

== ENCOUNTER 2019-11-27 10:37 | Inpatient (IN) | payer OTHER ==
[2019-11-27 11:51] LABS: BASO % 0.4 % (0-2.0); EOS % 0.9 % (0-4.5); HEMATOCRIT 39.7 % (35.4-49); LYMPH % 34.8 % (8-40); MCH 30.1 pg (25.7-33.7); MCHC 32.8 g/dl (32.0-35.9); MEAN CELL VOLUME 91.7 fl (80-96); MEAN PLT VOLUME 8.1 fl (7.5-11.1); NEUT % 53.9 % (42.8-82.8); PLATELET COUNT 100 K/MM3 (134-434); RBC 4.32 M/mm3 (4.00-5.60); RDW 13.7 % (11.9-15.9); WHITE BLOOD COUNT 3.6 K/mm3 (4.0-10.0)
[2019-11-27 11:58] LABS: INR 1.12 (0.83-1.09); PROTHROMBIN TIME (PATIENT) 13.2 SEC (9.7-13.0)
[2019-11-27 12:26] LABS: ALBUMIN 3.6 g/dl (3.4-5.0); BILIRUBIN,TOTAL 0.8 mg/dL (0.2-1); CALCIUM 8.7 mg/dL (8.5-10.1); POTASSIUM 3.2 mmol/L (3.5-5.1)
[2019-11-27] MEDS ORDERED: VANCOMYCIN HCL 1,500 MG in DEXTROSE 5%-WATER - 500 ML IVPB ONE (12:35)
[2019-11-27] MEDS ORDERED: IMIPENEM/CILASTATIN SODIUM 500 MG in SODIUM CHLORIDE 100 ML IV ONE (12:36)
[2019-11-27 12:37] LABS: ERYTHROCYTE SEDIMENTATION RATE 79 mm/hr (0-20)
[2019-11-27] MEDS ORDERED: POTASSIUM CHLORIDE TABS 20 MEQ TABLET.ER (FP) PO ONE ×2 (12:44→12:59)
--- NOTE | 2019-11-27 12:55 | PDOC ---
Documentation entered by Dom Quintero SCRIBE, acting as scribe for Terry Sandoval MD. Terry Sandoval MD: This documentation has been prepared by the Karen portillo inDom SCRIBE, under my direction and personally reviewed by me in its entirety. I confirm that the documentation accurately reflects all work, treatment, procedures, and medical decision making performed by me. History of Present Illness - General Chief Complaint: Wound Stated Complaint: Edema Time Seen by Provider: 11/27/19 11:10 History Source: Patient Exam Limitations: No Limitations - History of Present Illness Initial Comments: 11/27/19 11:31 The patient is a 59 year old male, with a significant PMH of HIV (per chart review, CD4 count of 617 on 11/06/18), HTN, depression, heroin abuse (on methadone), osteomyelitis, anxiety, sciatica, HCV, who presents to the emergency department for evaluation of left foot second digit wound. Pt endorses swelling and blister on the bottom of the second digit which produced blood when he squeezed it after he showered. The patient denies chest pain and shortness of breath. Denies fever or chills. Denies any other symptoms while in the ER. Allergies: penicillins, gabapentin Social Hx: Pt reports currently on chantix and smokes 1-2 cigarettes per day. Surgical Hx: amputation of left foot first digit PCP: Dr. Jasmine Parish Past History - Medical History Allergies/Adverse Reactions: Allergies Allergy/AdvReac Type Severity Reaction Status Date / Time Penicillins AdvReac Intermediate Elevated Verified 11/24/18 13:50 Liver Enzymes gabapentin AdvReac Mild edema Verified 01/09/19 12:46 Home Medications: Ambulatory Orders Methadone [Dolophine -] 75 mg PO DAILY@0600 MDD 1 07/05/17 Docusate Sodium [Colace] 100 mg PO TID PRN 11/21/18 Amlodipine Besylate [Norvasc -] 5 mg PO DAILY #30 tablet 08/12/19 Emtricitab/Rilpiviri/Tenof Ala [Odefsey Tablet] 1 each PO DAILY #30 tablet 08/12/19 Ergocalciferol (Vitamin D2) [Vitamin D2] 50,000 unit PO Q7D #4 capsule 08/12/19 Sodium Chloride [Saline Nasal [place]] 1 - 2 spray NS PRN #1 spray 08/12/19 Fluticasone Prop 0.05% Nasal [Flonase -] 1 - 2 spray NS DAILY #1 spray 09/11/19 Lactulose (Oral Use) [Cephulac -] 20 gm PO DAILY #1 bottle 11/11/19 Furosemide [Lasix -] 20 mg PO DAILY 11/27/19 Famotidine [Pepcid -] 20 mg PO DAILY tablet 12/09/19 Hydrocodone/Acetaminophen [[place] 10-325 Tablet] 1 each PO BID PRN #60 tablet MDD 2 12/10/19 Varenicline Tartrate [Chantix] 0.5 mg PO BID #60 tab 12/10/19 Anemia: Yes (thrombocytopenia) Asthma: No Cancer: No Cardiac Disorders: No CVA: No COPD: No CHF: No Dementia: No Diabetes: No GI Disorders: No Disorders: No HTN: Yes Hypercholesterolemia: No Liver Disease: Yes (cirrhosis; hep C treated) Psychiatric Problems: Yes (multiple drug abuse.) Seizures: No Thyroid Disease: No - Surgical History Abdominal Surgery: No Appendectomy: No Cardiac Surgery: No Cholecystectomy: Yes Lung Surgery: No Neurologic Surgery: No Orthopedic Surgery: Yes (partial left great toe amputation osteomyelitis 11/2018) - Psycho-Social/Smoking History Smoking History: Current every day smoker Have you smoked in the past 12 months: Yes Number of Cigarettes Smoked Daily: 2 Cigars Per Day: 0 Information on smoking cessation initiated: No 'Breaking Loose' booklet given: 07/17/13 - Substance Abuse Hx (Audit-C & DAST Scrn) How often the patient has a drink containing alcohol: Never Score: In Men: 4 or > Positive; In Women: 3 or > Positive: 0 Screen Result (Pos requires Nsg. Audit-10AR): Negative In the last yr the pt used illegal drug/Rx for NonMed reason: No Score: Yes response is considered Positive: 0 Screen Result (Positive result requires Nsg. DAST-10): Negative Review of Systems - Review of Systems Able to Perform ROS?: Yes Comments:: 11/27/19 11:31 CONSTITUTIONAL: No fever, no chills, no fatigue EYES: No visual changes ENT: No ear pain, no sore throat CARDIOVASCULAR: No chest pain, no palpitations RESPIRATORY: No cough, no SOB GI: No abdominal pain, no nausea, no vomiting, no constipation, no diarrhea GENITOURINARY: No dysuria, no frequency, no hematuria MUSKULOSKELETAL: No backpain, no joint pain, no myalgias SKIN: + wound and swelling on left foot second digit. NEURO: No headache All Other Systems: Reviewed and Negative *Physical Exam - Vital Signs Last Vital Signs Temp Pulse Resp BP Pulse Ox 98.4 F 71 18 119/72 96 11/27/19 10:54 11/27/19 10:54 11/27/19 10:54 11/27/19 10:54 11/27/19 10:54 - Physical Exam 11/27/19 12:50 EXAMINATION CONSTITUTIONAL: Awake, alert, mobidly bese; in no apparent distress HEAD: Normocephalic; atraumatic EYES: PERRL; EOM intact ENMT: External appears normal; normal oropharynx NECK: Supple; non-tender; no cervical lymphadenopathy CARD: Normal S1, S2; no murmurs, rubs, or gallops RESP: Normal chest excursion with respiration; breath sounds clear and equal bilaterally; no wheezes, rhonchi, or rales ABD: Soft, non-distended; non-tender; no palpable organomegaly, no palpable hernias EXT: Left Foot: grossly edematous, wam to touch, with discoloration and edema of the 2nd toe with a fluctuant volar collection. previous transhalix amputation of 1st to noted SKIN: Warm, dry, NEURO: No focal neurological deficiencies. Heart Score/ECG Review - ECG Impressions Comment:: 11/27/19 14:10 ECG performed at 13:38. Demonstrates rate of 55bpm. Sinus bradycardia with first degree AV block. Left ventricular hypertrophy with QRS widening. ED Treatment Course - LABORATORY CBC & Chemistry Diagram: 12/09/19 09:50 12/09/19 06:00 Medical Decision Making - Medical Decision Making 11/27/19 12:54 Patient 59-year-old male with history of PVD, HIV on [place] resents with signs and symptoms of acute osteomyelitis. Will obtain blood cultures/CBC/CMP/ESR/CRP. Will administer broad-spectrum antibiotics. Will obtain x-ray to rule out subcutaneous air. Will consult ID and podiatry. Will admit. Discharge - Discharge Information Problems reviewed: Yes Clinical Impression/Diagnosis: Osteomyelitis of ankle or foot, left, acute Condition: Fair Disposition: VNS/HOME HEALTH CARE - Admission Yes - Follow up/Referral - Patient Discharge Instructions - Post Discharge Activity
--- NOTE | 2019-11-27 13:29 | PN ---
Teaching Attending Note Name of Resident: Porsha Harding ATTENDING PHYSICIAN STATEMENT I saw and evaluated the patient. I reviewed the resident's note and discussed the case with the resident. I agree with the resident's findings and plan as documented. SUBJECTIVE: Complaint of pain swelling discharge left foot. OBJECTIVE: Vital Signs Temperature 98.4 F 11/27/19 10:54 Pulse Rate 71 11/27/19 10:54 Respiratory Rate 18 11/27/19 10:54 Blood Pressure 119/72 11/27/19 10:54 O2 Sat by Pulse Oximetry (%) 96 11/27/19 11:14 General: Middle-aged man, comfortable, not in distress HEENT mucous membranes moist, no anemia, no jaundice, PERRLA, no nystagmus Neck: No JVD, supple, no bruit, thyroid palpably normal, normal carotid pulsations. Chest: Nontender, clear to auscultation bilaterally/bilateral wheezing/bilateral basal rales. CVS: S1-S2 regular/irregular no murmur/gallop/rub Abdomen: Nondistended, soft, bowel sounds present. Extremities: Left lower extremity second toe cellulitis and abscess formation, left first toe amputation healed stump, left lower extremity swelling, pulses p ositive , [employer] OFFICER: AO X3 , no gross motor sensory deficit CBCD WBC 3.6 K/mm3 (4.0-10.0) L 11/27/19 11:30 RBC 4.32 M/mm3 (4.00-5.60) 11/27/19 11:30 Hgb 13.0 GM/dL (11.7-16.9) 11/27/19 11:30 Hct 39.7 % (35.4-49) 11/27/19 11:30 MCV 91.7 fl (80-96) 11/27/19 11:30 MCHC 32.8 g/dl (32.0-35.9) 11/27/19 11:30 RDW 13.7 % (11.9-15.9) 11/27/19 11:30 Plt Count 100 K/MM3 (134-434) L 11/27/19 11:30 MPV 8.1 fl (7.5-11.1) D 11/27/19 11:30 CMP Sodium 139 mmol/L (136-145) 11/27/19 11:30 Potassium 3.2 mmol/L (3.5-5.1) L 11/27/19 11:30 Chloride 101 mmol/L (98-107) 11/27/19 11:30 Carbon Dioxide 33 mmol/L (21-32) H 11/27/19 11:30 Anion Gap 5 MMOL/L (8-16) L 11/27/19 11:30 BUN 11.0 mg/dL (7-18) 11/27/19 11:30 Creatinine 1.0 mg/dL (0.55-1.3) 11/27/19 11:30 Calcium 8.7 mg/dL (8.5-10.1) 11/27/19 11:30 Total Bilirubin 0.8 mg/dL (0.2-1) 11/27/19 11:30 AST 49 U/L (15-37) H 11/27/19 11:30 ALT 20 U/L (13-61) 11/27/19 11:30 Alkaline Phosphatase 87 U/L (45-117) 11/27/19 11:30 Total Protein 8.0 g/dl (6.4-8.2) 11/27/19 11:30 Albumin 3.6 g/dl (3.4-5.0) 11/27/19 11:30 X-ray left foot: First toe status post amputation, significant swelling on second toe and foot Chest x-ray: Mild cardiomegaly minimal bilateral interstitial markings EKG: Pending Active Medications Amlodipine Besylate (Norvasc -) 5 mg PO DAILY [facility] Last Admin: 11/27/19 15:23 Dose: Not Given Documented by: Docusate Sodium (Colace -) 100 mg PO TID PRN PRN Reason: CONSTIPATION Enoxaparin Sodium (Lovenox -) 40 mg SQ DAILY [facility] Fluticasone Propionate (Flonase -) 1 spray NS DAILY [facility] Last Admin: 11/27/19 15:23 Dose: Not Given Documented by: Methadone HCl (Dolophine -) 75 mg PO DAILY@0600 [facility] Non-Formulary Medication (Hydrocodone/Acetaminophen [[place] 10-325 Tablet]) 1 each PO BID [facility] Varenicline (Chantix -) 0.5 mg PO BID [facility] ASSESSMENT AND PLAN: 59-year-old obese patient history of HIV on [place] last CD4 count 657, hep C X abuse on methadone program, also history of peripheral artery disease status post left first toe amputation, presented with worsening pain swelling and discharge from on arrival to ED hemodynamically stable lower extremity x-ray shows questionable osteomyelitis.. 1. Left foot cellulitis: Left second toe cellulitis/sepsis, follow-up ID recommendation continue antibiotic, podiatry consult, pain control 2. HIV: CD4 count more than 600 resume home medications 3. Hep C; treated no active issue 4. Polysubstance abuse; on methadone program continue methadone 75 mg daily please confirm the dose from methadone clinic 5. Swelling of left lower extremity rule out DVT follow-up lower Doppler 6. Hypokalemia repleted follow-up magnesium and BMP 7. History of smoking: On Chantix resume DVT prophylaxis: Subcu Lovenox Rest continue current management Case discussed with the resident
--- NOTE | 2019-11-27 14:53 | HP ---
CHIEF COMPLAINT: L 2nd toe pain/swelling PCP: Dr. Jasmine Parish HISTORY OF PRESENT ILLNESS: 59M w/ pmhx of HIV (per chart review, CD4 count of 617 on 11/06/18), HTN, depression, heroin abuse (on methadone), osteomyelitis, anxiety, sciatica, HCV who presents in the ED for worsening L 2nd toe pain/swelling sent by his podiatry (Dr. Reed). States he started noticing a callus on his two 3 weeks ago, but denies injury to the area. This past Monday, he started noticing swelling on the same toe, and then on Monday noticed swelling of his L foot. Says he only has been soaking his foot in water to alleviate the swelling. Denies fever, chills, nausea/vomiting, barone/d, chest pain, sob, abd pain, urinary/bowel symptoms. 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 ER course was notable for: (1) VS wnl, K 3.2, CRP 2.5, WBC 3.6, COVID pending (2) IV Vanc/Imipenem given, K-Dur 40 PO given (3) Recent Travel: Denies PAST MEDICAL HISTORY: As per HPI PAST SURGICAL HISTORY: Cholecystectomy L hallux amputation Social History: Smoking: Currently smokes 2-3 cig/day Alcohol: Denies Drugs: Former heroine user (on Methadone) Allergies Penicillins Adverse Reaction (Intermediate, Verified 11/24/18 13:50) Elevated Liver Enzymes Note: Hospitalization ( October 2016) for sepsis (wound infection) PCN discontinued due to elevated LFTs gabapentin Adverse Reaction (Mild, Verified 01/09/19 12:46) edema HOME MEDICATIONS: Home Medications Medication Instructions Recorded Methadone [Dolophine -] 75 mg PO DAILY@0600 MDD 1 07/05/17 Cane 1 each ASDIR #1 each 02/26/18 Docusate Sodium [Colace] 100 mg PO TID PRN 11/21/18 Amlodipine Besylate [Norvasc -] 5 mg PO DAILY #30 tablet 08/12/19 Emtricitab/Rilpiviri/Tenof Ala 1 each PO DAILY #30 tablet 08/12/19 [Odefsey Tablet] Ergocalciferol (Vitamin D2) 50,000 unit PO Q7D #4 capsule 03/30/20 [Vitamin D2] Furosemide [Lasix -] 20 mg PO DAILY #30 tablet 08/12/19 Multivitamins [Multivit ([facility] 1 tab PO DAILY #30 tab 08/12/19 Formulary)] Sodium Chloride [Saline Nasal 1 - 2 spray NS PRN #1 spray 08/12/19 [place]] Diclofenac Sodium [Voltaren] 2 gm TP TID PRN #3 tube 09/11/19 Fluticasone Prop 0.05% Nasal 1 - 2 spray NS DAILY #1 spray 09/11/19 [Flonase -] Varenicline Tartrate [Chantix] 0.5 mg PO BID #60 tab 10/10/19 Hydrocodone/Acetaminophen [Almond 1 each PO BID #60 tablet MDD 2 11/11/19 10-325 Tablet] Lactulose (Oral Use) [Cephulac -] 20 gm PO DAILY #1 bottle 11/11/19 Mirtazapine 15 mg PO HS #30 tablet 11/21/19 traZODone HCL [Trazodone HCl] 100 mg PO HS #30 tablet 11/21/19 REVIEW OF SYSTEMS CONSTITUTIONAL: Absent: fever, chills, diaphoresis, generalized weakness, malaise, loss of appetite, weight change HEENT: Absent: rhinorrhea, nasal congestion, throat pain, throat swelling, difficulty swallowing, mouth swelling, ear pain, eye pain, visual changes CARDIOVASCULAR: Absent: chest pain, syncope, palpitations, irregular heart rate, lightheadedness, peripheral edema RESPIRATORY: Absent: cough, shortness of breath, dyspnea with exertion, orthopnea, wheezing, stridor, hemoptysis GASTROINTESTINAL: Absent: abdominal pain, abdominal distension, nausea, vomiting, diarrhea, constipation, melena, hematochezia GENITOURINARY: Absent: dysuria, frequency, urgency, hesitancy, hematuria, flank pain, genital pain MUSCULOSKELETAL: L Absent: myalgia, arthralgia, joint swelling, back pain, neck pain SKIN: Absent: rash, itching, pallor HEMATOLOGIC/IMMUNOLOGIC: L 2nd toe pain/swelling, L foot swelling Absent: easy bleeding, easy bruising, lymphadenopathy, frequent infections ENDOCRINE: Absent: unexplained weight gain, unexplained weight loss, heat intolerance, cold intolerance NEUROLOGIC: Absent: headache, focal weakness or paresthesias, dizziness, unsteady gait, seizure, mental status changes, bladder or bowel incontinence PSYCHIATRIC: Absent: anxiety, depression, suicidal or homicidal ideation, hallucinations. PHYSICAL EXAMINATION Vital Signs - 24 hr 11/27/19 11/27/19 11/27/19 10:54 11:14 13:05 Temperature 98.4 F Pulse Rate 71 Pulse Rate [ 56 L Left Radial] Respiratory 18 20 Rate Blood Pressure 119/72 Blood Pressure 97/63 [Right Arm] O2 Sat by Pulse 96 96 95 Oximetry (%) GENERAL: Non-toxic appearing male. AAOx3. NAD. HEENT: AT/NC. EOMI. MMM. NECK: Normal range of motion, supple without lymphadenopathy, JVD, or masses. LUNGS: CTA B/L. No wheezes, rales noted. HEART: RRR, normal S1, S2. ABDOMEN: Obese, soft NT/ND, normoactive BS. MUSCULOSKELETAL: Normal range of motion at all joints. No bony deformities or tenderness. No CVA tenderness. EXTREMITIES: LLE swelling. s/p amputation of L 1st toe, now with well-healed stump. 2nd digit on L foot +tenderness, +swelling, +fluctuance, no discharge. 2+ DP pulses b/l. NEUROLOGICAL: Cranial nerves II-XII intact. Normal speech. Normal gait. PSYCHIATRIC: Cooperative. Good eye contact. Appropriate mood and affect. Laboratory Results - last 24 hr 11/27/19 11/27/19 11/27/19 11:30 11:30 11:30 WBC 3.6 L RBC 4.32 Hgb 13.0 Hct 39.7 MCV 91.7 MCH 30.1 MCHC 32.8 RDW 13.7 Plt Count 100 L MPV 8.1 D Absolute Neuts (auto) 2.0 Neutrophils % 53.9 Lymphocytes % 34.8 Monocytes % 10.0 Eosinophils % 0.9 Basophils % 0.4 Nucleated RBC % 0 ESR 79 H PT with INR 13.20 H INR 1.12 H Sodium 139 Potassium 3.2 L Chloride 101 Carbon Dioxide 33 H Anion Gap 5 L BUN 11.0 Creatinine 1.0 Est GFR (CKD-EPI)AfAm 93.73 Est GFR (CKD-EPI)NonAf 80.87 Random Glucose 85 Calcium 8.7 Total Bilirubin 0.8 AST 49 H ALT 20 Alkaline Phosphatase 87 C-Reactive Protein 2.5 H Total Protein 8.0 Albumin 3.6 ASSESSMENT/PLAN: 59M w/ pmhx of HIV (per chart review, CD4 count of 617 on 11/06/18), HTN, depression, heroin abuse (on methadone), osteomyelitis, anxiety, sciatica, HCV who presents in the ED for worsening L 2nd toe pain/swelling admitted for L toe cellulitis. #L foot cellulitis; L 2nd toe swollen, painful, ?abscess -L foot xray +significant soft tissue swelling of L second toe w/o evid of air -IV Vanc/Imipinem given -ID consulted; will cont with Clindamycin and Ceftriaxone -Podiatry consulted (Dr. Kaiser) -LE duplex ordered to r/o DVT -CRP/ESR elevated #Hypokalemia; K 3.2 -PO K-Dur 40 given x1 -Cont to trend BMP and replete PRN -Mag/Phos ordered #Sciatica; Pt reports that he currently sees a pain management doctor and takes Hydrocodone/Acetaminophen 10-325 (while also on Methadone). Verified per EMR. #HIV; CD4 605 in Jun 2019. Cont current meds: Odefsey 1 tab QD #Hx of Cirrhosis/Hep C; Treated, no active issues. Follows closely with GI as outpatient at [facility]. #Polysubstance abuse (Heroine/cocaine); No longer uses cocaine or heroine. Cont home med: Methadone 75 QD #Tobacco Use Disorder; Currently smoker. Cont home meds: Chantix 0.5 BID #Prophylaxis DVT: Lovenox #FEN -PO hydration -recheck lytes in AM (K) -Sodium-controlled diet Dispo -admit to med surg Visit type - Emergency Visit Emergency Visit: Yes ED Registration Date: 11/27/19 Care time: The patient presented to the Emergency Department on the above date and was hospitalized for further evaluation of their emergent condition. - New Patient This patient is new to me today: Yes Date on this admission: 11/27/19 - Critical Care Critical Care patient: No ATTENDING PHYSICIAN STATEMENT I saw and evaluated the patient. I reviewed the resident's note and discussed the case with the resident. I agree with the resident's findings and plan as documented. SUBJECTIVE: OBJECTIVE: ASSESSMENT AND PLAN:
[2019-11-27] MEDS ORDERED: DOCUSATE SODIUM 100 MG CAPSULE (FP) PO PRN (15:02)
--- NOTE | 2019-11-27 15:15 | PN ---
Progress Note (short form) - Note Progress Note: ID consult dictated imp/reccd 59 yo man patient of the [facility], with stable HIV, history of osteo of the left big toe s/p partial amputation 11/27 s/p vanco[facility]meropenem [facility] the [facility] now admitted with swelling of the second toe of the right foot no fevers no erythema noted notes right leg is larger then left pen allergy - rash swelling second toe left foot- ?abscess at the tip pen allergy well controlled HIV liver cirrhosis clindamycin and ceftriaoxone podiatry evaluation continue jigar for his HIV d/w admitting resident
[2019-11-27] MEDS: FLUTICASONE PROP 0.05% 16 GM NASAL SPRAY NS SCH (15:23)
[2019-11-27] MEDS: amLODIPine BESYLATE 5 MG TABLET (FP) PO SCH (15:23)
[2019-11-27] MEDS ORDERED: CEFTRIAXONE 2 GM in DEXTROSE 5%-WATER 100 ML IVPB SCH (15:30)
[2019-11-27] MEDS: EMTRICITAB/RILPIVIRI/TENOF ALA (ODEFSEY) TABLET PO SCH (15:56)
[2019-11-27] MEDS ORDERED: CLINDAMYCIN 600MG PREMIX IVPB 600 MG/50 ML BAG IVPB SCH (18:00)
[2019-11-27] MEDS: FUROSEMIDE 20 MG TABLET (FP) PO SCH (18:38)
[2019-11-27] MEDS: CLINDAMYCIN 600MG PREMIX IVPB 600 MG/50 ML BAG IVPB SCH (20:27)
--- NOTE | 2019-11-27 20:27 | CONS ---
DATE OF CONSULTATION: DATE OF DICTATION: 11/27/2019 INFECTIOUS DISEASE CONSULTATION HISTORY OF PRESENT ILLNESS: A 59-year-old man who is followed at the [facility]. He has very stable HIV with a CD4 of 605 in June of this year, undetectable viral loads, has been undetectable for several years now. Prior history of hepatitis C that was treated in 2016. He has a history of partial amputation of the left big toe in November 2018. He [facility] the [facility] with vancomycin and meropenem for 6 weeks. He is now admitted with worsening 2nd toe pain and swelling which has been present for about the last 2 or 3 weeks. He had no injury to the toe, but he noted he had a callus that started, and he noted he developed swelling of the toe and then swelling of the foot. He has been soaking his foot in water. He has no fevers or chills, nausea or vomiting. He has otherwise felt well. He follows up with Dr. Reed for his podiatry care as well as the [facility] for his HIV care. PAST MEDICAL HISTORY: Notable for, he has chronic hip pain for which he sees pain management. He has a history of obesity, HIV, liver cirrhosis secondary to hepatitis C. He has been treated for the hepatitis C. There is a history of bipolar disorder and depression. Substance use, he is currently on methadone 70 mg daily. Anxiety and sciatica. His surgical history, is unremarkable. SOCIAL HISTORY: There is no history of alcohol use, former heroin and cocaine user, and he smokes several cigarettes a day. ALLERGIES: PENICILLIN, which gives him a rash, and GABAPENTIN. He has tolerated cephalosporins before as well as carbapenem. MEDICATION: His medications as an outpatient include: 1. Flonase. 2. Lactulose. 3. Vitamin D. 4. Methadone 5. Colace. 6. Norvasc. 7. Chantix. 8. Methadone. 9. Odefsey REVIEW OF SYSTEMS: He has no cough. He has no fevers or chills, nausea, vomiting, diarrhea, or dysuria. PHYSICAL EXAMINATION: General: He is a pleasant man in no acute distress. Vital Signs: Temperature 98.4, pulse 76, blood pressure 97/63, respiratory rate 18, he is saturating 95% on room air. HEENT: Normocephalic. Eyes are anicteric. Neck: Supple. Lungs: Clear to auscultation. Heart: Regular rate and rhythm. Abdomen: Soft, nontender. Extremities: Notable for well healed right big toe. The 2nd toe has a callus on the tip which appears to be maybe an abscess. There is swelling of the toe. He has swelling as well of the entire foot. And he has some chronic venous stasis of both legs. He has a palpable dorsalis pedis pulse which is 2+. He notes that his left lower extremity is chronically more swollen than his right, but at this time it is worse than usual. LABORATORY: Notable for a white count of 3.6, hemoglobin 13, platelets are 100,000, sedimentation rate 79. BUN and creatinine are 11 and 1. AST of 49. No urinalysis was sent, that is an error. Cultures are pending. IMPRESSION: In summary, this is a 59-year-old man with what appears to be a 2nd toe infection, appears to have abscess of the tip of the toe. Awaiting podiatry evaluation. Would treat him with, given his PENICILLIN allergy, will treat him with clindamycin and ceftriaxone for now. He has minimal cellulitis, but this is all due to an abscess of the toe. There is no prior history of methicillin-resistant Staphylococcus aureus. please continue his antiretrovirals for his HIV. LAITH HADDAD M.D. [id number] MTDD
[2019-11-27] MEDS: VARENICLINE TARTRATE 0.5 MG TAB PO SCH (22:00)
[2019-11-28] MEDS: CLINDAMYCIN 600MG PREMIX IVPB 600 MG/50 ML BAG IVPB SCH ×3 (02:06→17:35)
[2019-11-28 08:26] LABS: BASO % 0.4 % (0-2.0); EOS % 3.3 % (0-4.5); HEMATOCRIT 38.5 % (35.4-49); HEMOGLOBIN 12.5 GM/dL (11.7-16.9); LYMPH % 41.2 % (8-40); MCHC 32.6 g/dl (32.0-35.9); MEAN CELL VOLUME 91.9 fl (80-96); MONO % 13.5 % (3.8-10.2); NEUT % 41.6 % (42.8-82.8); PLATELET COUNT 93 K/MM3 (134-434); RBC 4.18 M/mm3 (4.00-5.60); RDW 14.1 % (11.9-15.9); WHITE BLOOD COUNT 2.9 K/mm3 (4.0-10.0)
[2019-11-28] MEDS ORDERED: POTASSIUM CHLORIDE TABS 20 MEQ TABLET.ER (FP) PO ONE (08:30)
[2019-11-28] MEDS ORDERED: DEXTROSE 5%-WATER 100 ML IVPB ONE (08:42)
[2019-11-28 08:50] LABS: ALBUMIN 3.4 g/dl (3.4-5.0); BILIRUBIN,TOTAL 0.8 mg/dL (0.2-1); BLOOD UREA NITROGEN 15.4 mg/dL (7-18); CALCIUM 8.5 mg/dL (8.5-10.1); MAGNESIUM 2.2 mg/dL (1.8-2.4); PHOSPHOROUS 3.4 mg/dL (2.5-4.9); POTASSIUM 3.5 mmol/L (3.5-5.1); TOT PROT 7.5 g/dl (6.4-8.2)
[2019-11-28] MEDS ORDERED: PT OWN MED DRAWER 7, Y5N ONE (09:20)
[2019-11-28] MEDS: VARENICLINE TARTRATE 0.5 MG TAB PO SCH ×2 (09:21→21:48)
[2019-11-28] MEDS: CEFTRIAXONE 2 GM in DEXTROSE 5%-WATER 100 ML IVPB SCH (09:21)
[2019-11-28] MEDS: ENOXAPARIN NA (PORCINE) 40 MG/0.4 ML DISP.SYRIN SQ SCH (09:21)
[2019-11-28] MEDS: amLODIPine BESYLATE 5 MG TABLET (FP) PO SCH (09:21)
[2019-11-28] MEDS: FUROSEMIDE 20 MG TABLET (FP) PO SCH (09:22)
[2019-11-28] MEDS: FLUTICASONE PROP 0.05% 16 GM NASAL SPRAY NS SCH (09:26)
--- NOTE | 2019-11-28 10:52 | CONSULT ---
Consult - text type - Consultation Consultation Note: PODIATRY 59M w/ pmhx of HIV , HTN, depression, heroin abuse (on methadone), osteomyelitis, anxiety, sciatica, HCV who presents in the ED for worsening L 2nd toe pain/swelling sent by his podiatry (Dr. Reed). States he started noticing a callus on his two to 3 weeks ago, but denies injury to the area. States that care had been delayed due to COVID and feels the toe just slipped from his control.States last surgery that was performed healed very un eventfu lly. O: Vasc: DP/PT non palpable Derm: Left foot mild edema noted, there is gross edema and enlargment of th eleft 2nd digit with some minimal purulent drainage noted from the medial aspect of the 2nd digit, large callous buildup, no POP noted at this time, no erythema, no streaking, no bone exposed; Right foot wnl Neuro: Grossly decreased sensation noted A: 59 y/o with HIV, HTN, hx of osteo with gross neuropathy presents with likely 2nd digit osteo of the left foot. P: Evaluated and reviewed MRI ordered karen/pvr ordered will likely need amputation of 2nd digit and he understands but will work up extent of infection as well as making sure vascular status is in tact prior likely amp early next week; monday Please order pre op covid clearance will follow
[2019-11-28] MEDS ORDERED: KETOROLAC TROMETHAMINE 15 MG/ML VIAL IVPUSH PRN (10:55)
[2019-11-28] MEDS: METHADONE 40 MG, METHADONE 30 MG, METHADONE 5 MG PO SCH (11:52)
--- NOTE | 2019-11-28 11:54 | EKG ---
Test Reason : Blood Pressure : / mmHG Vent. Rate : 055 BPM Atrial Rate : 055 BPM P-R Int : 254 ms QRS Dur : 116 ms QT Int : 464 ms P-R-T Axes : 064 -11 -08 degrees QTc Int : 443 ms SINUS BRADYCARDIA WITH 1ST DEGREE A-V BLOCK LEFT VENTRICULAR HYPERTROPHY WITH QRS WIDENING T WAVE ABNORMALITY, CONSIDER ANTEROLATERAL ISCHEMIA ABNORMAL ECG WHEN COMPARED WITH ECG OF 21-NOV-2018 17:43, T WAVE INVERSION NOW EVIDENT IN ANTERIOR LEADS Confirmed by JACKSON WHITLEY MD ([id number]) on 11/28/2019 11:53:42 AM Referred By: Confirmed By:JACKSON WHITLEY MD
[2019-11-28] MEDS ORDERED: ACETAMINOPHEN 1000 MG/100 ML VIAL (NON FORMULARY) IVPB ONE (12:00)
--- NOTE | 2019-11-28 13:09 | PN ---
Progress Note (short form) - Note Progress Note: no complaints other then toe pain Vital Signs Period Temp Pulse Resp BP Sys/Forman Pulse Ox Last 24 Hr 98 F-98.4 F 64-68 18-20 106-142/47-69 71-96 cor-rrr lungs clear abd soft,nt ext second toe with swelling, scant purulent discharge CBC, BMP 11/28/19 07:05 11/28/19 07:05 Laboratory Tests 11/27/19 11/27/19 11:30 11:30 ESR 79 H C-Reactive Protein 2.5 H a/p swelling second toe left foot- ?abscess at the tip-for MRI, drainage from toe sent for culture pen allergy well controlled HIV liver cirrhosis clindamycin and ceftriaoxone podiatry evaluation continue jigar for his HIV
[2019-11-28] MEDS ORDERED: oxyCODONE HCL 5 MG TABLET PO PRN (13:13)
--- NOTE | 2019-11-28 13:21 | PN ---
Physical Exam: SUBJECTIVE: Patient seen and examined at the bedside. sitting up, having some pain of left foot. OBJECTIVE: Patient is a 59 year old male with a significant past medical history of HIV (per chart review, CD4 count of 617 on 11/06/18), HTN, depression, heroin abuse (on methadone), osteomyelitis, anxiety, sciatica (on percocets), HCV who presents in the ED for worsening L 2nd toe pain/swelling sent by his podiatry (Dr. Reed). States he started noticing a callus on his two 3 weeks ago, but denies injury to the area. This past Monday, he started noticing swelling on the same toe, and then on Monday noticed swelling of his L foot. Says he only has been soaking his foot in water to alleviate the swelling. Denies fever, chills, nausea/vomiting, barone/d, chest pain, sob, abd pain, urinary/bowel symptoms. 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 #thrombocytopenia Vital Signs Period Temp Pulse Resp BP Sys/Forman Pulse Ox Last 24 Hr 98 F-98.4 F 64-68 18-20 106-142/47-69 71-96 GENERAL: The patient is awake, alert, and fully oriented, in no acute distress. HEAD: Normal with no signs of trauma. EYES: PERRL, extraocular movements intact, sclera anicteric, conjunctiva clear. No ptosis. ENT: Ears normal, nares patent, oropharynx clear without exudates, moist mucous membranes. NECK: Trachea midline, full range of motion, supple. LUNGS: Breath sounds equal, clear to auscultation bilaterally, no wheezes, no crackles, no accessory muscle use. HEART: Regular rate and rhythm ABDOMEN: Soft, nontender, nondistended, normoactive bowel sounds, no guarding, no rebound, no hepatosplenomegaly, no masses. EXTREMITIES: LLE swelling. s/p amputation of left (partial) 1st toe. 2nd digit on left foot + tenderness, + swelling, + fluctuance, no discharge. 2+ dp pulses b/l. NEUROLOGICAL: Normal speech, gait not observed. PSYCH: Normal mood, normal affect. SKIN: Warm, dry, normal turgor, no rashes or lesions noted Laboratory Results - last 24 hr 11/27/19 11/28/19 11/28/19 13:20 07:05 07:05 WBC 2.9 L RBC 4.18 Hgb 12.5 Hct 38.5 MCV 91.9 MCH 30.0 MCHC 32.6 RDW 14.1 Plt Count 93 L MPV 9.0 D Absolute Neuts (auto) 1.2 L Neutrophils % 41.6 L D Lymphocytes % 41.2 H Monocytes % 13.5 H Eosinophils % 3.3 D Basophils % 0.4 Nucleated RBC % 0 Sodium 140 Potassium 3.5 Chloride 102 Carbon Dioxide 34 H Anion Gap 4 L BUN 15.4 Creatinine 1.0 Est GFR (CKD-EPI)AfAm 93.73 Est GFR (CKD-EPI)NonAf 80.87 Random Glucose 83 Calcium 8.5 Phosphorus 3.4 Magnesium 2.2 Total Bilirubin 0.8 AST 47 H ALT 19 Alkaline Phosphatase 82 Total Protein 7.5 Albumin 3.4 COVID-19 (ROBERT) Not detected Active Medications Generic Name Dose Route Start Last Admin Trade Name Freq PRN Reason Stop Dose Admin Amlodipine Besylate 5 mg 11/27/19 15:15 11/28/19 09:21 Norvasc - PO 5 mg DAILY HAN Administration Docusate Sodium 100 mg 11/27/19 15:02 Colace - PO TID PRN CONSTIPATION Enoxaparin Sodium 40 mg 11/28/19 10:00 11/28/19 09:21 Lovenox - SQ 40 mg DAILY HAN Administration Fluticasone Propionate 1 spray 11/27/19 15:15 11/28/19 09:26 Flonase - NS 1 spray DAILY HAN Administration Furosemide 20 mg 11/27/19 16:00 11/28/19 09:22 Lasix - PO 20 mg DAILY HAN Administration Clindamycin Phosphate 600 mg in 50 mls @ 100 mls/hr 11/27/19 20:00 11/28/19 10:25 Cleocin 600 Mg Premix Ivpb - IVPB 100 mls/hr Q8H-IV HAN Administration Protocol Ceftriaxone Sodium 2 gm/ 100 mls @ 200 mls/hr 11/28/19 10:00 11/28/19 09:21 Dextrose IVPB 200 mls/hr DAILY HAN Administration Protocol Ketorolac Tromethamine 15 mg 11/28/19 10:55 Toradol Injection - IVPUSH 12/03/19 10:54 Q6H PRN PAIN LEVEL 7 - 10 Methadone HCl 40 mg/ Methadone 75 mg 11/28/19 11:15 11/28/19 11:52 HCl 30 mg/ Methadone HCl 5 mg PO Not Given DAILY@0600 [facility] Non-Formulary Medication 1 each 11/27/19 22:00 Hydrocodone/Acetaminophen [[place] 10-325 Tablet] PO BID [facility] Oxycodone HCl 10 mg 11/28/19 13:13 Roxicodone - PO Q12H PRN PAIN LEVEL 7 - 10 Varenicline 0.5 mg 11/27/19 22:00 11/28/19 09:21 Chantix - PO 0.5 mg BID [facility] Administration ASSESSMENT/PLAN: 11/11/2019 11/11/2019 hydrocodone-acetaminophen 10-325 mg tablet 60 30 Bernie Almaguer NP, PHD [facility] 10/10/2019 10/10/2019 hydrocodone- acetaminophen 10-325 mg tablet 60 30 Bernie Almaguer NP, PHD [facility] 09/11/2019 09/11/2019 hydrocodone-acetaminophen 10-325 mg tablet 60 30 Bernie Almaguer NP, PHD [facility] Problem List - Problems (1) Osteomyelitis of ankle or foot, left, acute Assessment/Plan: left 2nd toe swollen, painful, rule out abscess for left foot MRI pending L foot xray with significant soft tissue swelling of L second toe w/o evidence of air. on ceftriaxone/clindamycin, ID consulted for further recommendations Podiatry consulted. vascular duplex pending to rule out DVT Code(s): M86.172 - OTHER ACUTE OSTEOMYELITIS, LEFT ANKLE AND FOOT (2) HIV (human immunodeficiency virus infection) Assessment/Plan: continue home meds Code(s): Z21 - ASYMPTOMATIC HUMAN IMMUNODEFICIENCY VIRUS INFECTION STATUS (3) Methadone maintenance therapy patient Assessment/Plan: on methadone maintenance. patient follows with pain specialist for back pain/hip pain also on percocets BID at home Istop reviewed, addiction medicine consulted Code(s): F11.20 - OPIOID DEPENDENCE, UNCOMPLICATED (4) Obesity (BMI 30-39.9) Assessment/Plan: outpatient follow up Code(s): E66.9 - OBESITY, UNSPECIFIED (5) DVT prophylaxis Assessment/Plan: lovenox 40mg daily Code(s): Z29.9 - ENCOUNTER FOR PROPHYLACTIC MEASURES, UNSPECIFIED (6) Leukopenia Assessment/Plan: similar to previous admission. monitor with daily labs Code(s): D72.819 - DECREASED WHITE BLOOD CELL COUNT, UNSPECIFIED (7) Thrombocytopenia Assessment/Plan: similar to previous admission. monitor with daily labs Code(s): D69.6 - THROMBOCYTOPENIA, UNSPECIFIED Visit type - Emergency Visit Emergency Visit: Yes ED Registration Date: 11/27/19 Care time: The patient presented to the Emergency Department on the above date and was hospitalized for further evaluation of their emergent condition. - New Patient This patient is new to me today: Yes Date on this admission: 11/29/19 - Critical Care Critical Care patient: No - Discharge Referral Referred to [facility] Med P.C.: No
[2019-11-28] MEDS: EMTRICITAB/RILPIVIRI/TENOF ALA (ODEFSEY) TABLET PO SCH (13:54)
[2019-11-28] MEDS: LACTULOSE 20 GM/30 ML UDC (FOR ORAL USE ONLY) PO SCH (14:02)
--- NOTE | 2019-11-28 14:54 | CONSULT ---
Consult Detox [facility] Reason for Current Admission/Consult: We are consulted for a history of opioid use disorder on Methadone maintenance. - History History of Present Illness: 59M w/ pmhx of HIV (per chart review, CD4 count of 617 on 11/06/18), HTN, depression, heroin abuse (on methadone), osteomyelitis, anxiety, sciatica, HCV who presents in the ED for worsening L 2nd toe pain/swelling sent by his podiatry (Dr. Reed). States he started noticing a callus on his two 3 weeks ago, but denies injury to the area. This past Monday, he started noticing swelling on the same toe, and then on Monday noticed swelling of his L foot. Says he only has been soaking his foot in water to alleviate the swelling. Denies fever, chills, nausea/vomiting, barone/d, chest pain, sob, abd pain, urinary/bowel symptoms. 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 ER course was notable for: (1) VS wnl, K 3.2, CRP 2.5, WBC 3.6, COVID pending (2) IV Vanc/Imipenem given, K-Dur 40 PO given (3) Recent Travel: Denies PAST MEDICAL HISTORY: As per HPI PAST SURGICAL HISTORY: Cholecystectomy L hallux amputation Social History: Smoking: Currently smokes 2-3 cig/day Alcohol: Denies Drugs: Former heroine user (on Methadone) Vital Signs - 24 hr 11/27/19 11/27/19 11/27/19 15:38 17:43 21:00 Temperature 98 F Pulse Rate 64 Pulse Rate [ 68 Left Radial] Respiratory 20 18 18 Rate Blood Pressure 142/60 Blood Pressure 106/69 [Right Arm] O2 Sat by Pulse 96 96 96 Oximetry (%) 11/28/19 11/28/19 05:42 13:26 Temperature 98.4 F 98.1 F Pulse Rate 67 60 Pulse Rate [ Left Radial] Respiratory 18 20 Rate Blood Pressure 106/47 L 147/60 Blood Pressure [Right Arm] O2 Sat by Pulse 71 L 94 L Oximetry (%) Abnormal Lab Results 11/28/19 11/28/19 07:05 07:05 WBC 2.9 L Plt Count 93 L Absolute Neuts (auto) 1.2 L Neutrophils % 41.6 L D Lymphocytes % 41.2 H Monocytes % 13.5 H Carbon Dioxide 34 H Anion Gap 4 L AST 47 H Home Medication List Medication Instructions Recorded Confirmed Type Methadone [Dolophine -] 75 mg PO DAILY@0600 MDD 1 07/05/17 11/27/19 History Docusate Sodium [Colace] 100 mg PO TID PRN 11/21/18 11/27/19 History Furosemide [Lasix -] 20 mg PO DAILY 11/27/19 11/27/19 History Hydrocodone/Acetaminophen [[place] 1 each PO BID MDD 2 11/27/19 11/27/19 History 10-325 Tablet] Active Medications Generic Name Dose Route Start Last Admin Trade Name Freq PRN Reason Stop Dose Admin Amlodipine Besylate 5 mg 11/27/19 15:15 11/28/19 09:21 Norvasc - PO 5 mg DAILY HAN Administration Docusate Sodium 100 mg 11/27/19 15:02 Colace - PO TID PRN CONSTIPATION Enoxaparin Sodium 40 mg 11/28/19 10:00 11/28/19 09:21 Lovenox - SQ 40 mg DAILY HAN Administration Fluticasone Propionate 1 spray 11/27/19 15:15 11/28/19 09:26 Flonase - NS 1 spray DAILY HAN Administration Furosemide 20 mg 11/27/19 16:00 11/28/19 09:22 Lasix - PO 20 mg DAILY HAN Administration Clindamycin Phosphate 600 mg in 50 mls @ 100 mls/hr 11/27/19 20:00 11/28/19 10:25 Cleocin 600 Mg Premix Ivpb - IVPB 100 mls/hr Q8H-IV HAN Administration Protocol Ceftriaxone Sodium 2 gm/ 100 mls @ 200 mls/hr 11/28/19 10:00 11/28/19 09:21 Dextrose IVPB 200 mls/hr DAILY HAN Administration Protocol Lactulose 20 gm 11/28/19 14:00 11/28/19 14:02 Cephulac (Oral Use) PO 20 gm DAILY HAN Administration Methadone HCl 40 mg/ Methadone 75 mg 11/28/19 11:15 11/28/19 11:52 HCl 30 mg/ Methadone HCl 5 mg PO Not Given DAILY@0600 HAN Oxycodone HCl 10 mg 11/28/19 13:59 Roxicodone - PO Q12H PRN PAIN LEVEL 7 - 10 Varenicline 0.5 mg 11/27/19 22:00 11/28/19 09:21 Chantix - PO 0.5 mg BID HAN Administration EKG 11/26: Qtc <500 ASSESSMENT/PLAN: 11/11/2019 11/11/2019 hydrocodone-acetaminophen 10-325 mg tablet 60 30 Bernie Almaguer CEO AND PRESIDENT, PHD [facility] 10/10/2019 10/10/2019 hydrocodone- acetaminophen 10-325 mg tablet 60 30 Bernie Almaguer CEO AND PRESIDENT, PHD [facility] 09/11/2019 09/11/2019 hydrocodone-acetaminophen 10-325 mg tablet 60 30 Bernie Almaguer CEO AND PRESIDENT, PHD [facility] Imp 1. Pt admitted for second toe abscess/ cellulitis, seen by Podiatry, rec MRI, will likely need toe amputation 2. Methadone maintenance 3. On outpatient hydrocodone, spoke to provider Bernie Almaguer, pt gets hydrocodone for severe back and hip pain Plan 1. Methadone has been verified, would continue 75 mg daily 2. continue hydrocodone 3. Upon discharge, follow up with methadone maintenance program and [facility] provider: Dr. Bernie Almaguer - History Source History Provided By: Medical Record - Alcohol/Substance Use Hx Alcohol Use: Yes (none for one year +) - Past Medical History Cardio/Vascular: Yes: HTN Hepatobiliary: Yes: Hepatitis C Infectious Disease: Yes: HIV Psych: Yes: Addictions Dermatology: Yes: Cellulitis Assessment Plan - Diagnosis (1) Left hip pain Status: Chronic Comment: 07/10/19 MRI of hip shows partial hamstring tendon tearing - no cystic mass xray noted -MRI upright imaging 04/02/18 shows 7mm cyst left femoral head/neck - to f/u with dr concepcion at [facility] (decided not to f/u at [facility]) - thinks he had appt sometime in August 2018 but missed appt and needs to reschedule - will bring new MRI disc done 07/10/19 - now has appt September 2019 but missed and to be rescheduled heat, rest, risks and limitation of opiates discussed - ORT = 8 (high risk), DIRE = 16(appropriate candidate) - pain agreement reviewed and signed, safekeeping discussed close monitoring - on hydrocodone (2) Low back pain with sciatica Status: Chronic Comment: using back brace, heating pad, home PT, discussed postural exercise, better on norco, past radiology reports (xry,ct) shows stenosis, disc dessication and facet hypertrophy, although he does not want surgery or injections 04/30/18 - Consult note from Dr. Gaurav Coelol, [facility], Lumbar radiculopathy - Primary Based on history and PE finding and review of imaging I suspect the patients pain is due to lumbar radiculopathy at left L4/5. The patient has failed conservative measure for pain management including a home exercise program, formal physical therapy and oral pharmacotherapy. Plan: 1. I will obtain MRI L spine. 2. He will call us when he gets the MRI, I will review and probably schedule a left L4 and L5 TFESI 3. Start gabapentin 300 mg tid, try to stop percocet. Chronic left-sided low back pain with sciatica, sciatica laterality unspecified. MRI lumbar spine without contrast. (3) Methadone maintenance therapy patient Status: Chronic Comment: goes [facility]W at [facility], 75mg - Medication Detox Regimen/Protocol: Not Applicable
[2019-11-28] MEDS: METHADONE HCL 40 MG DISPERSABLE TABLET PO SCH (15:02)
[2019-11-28] MEDS: oxyCODONE HCL 5 MG TABLET PO PRN (18:50)
[2019-11-29] MEDS: CLINDAMYCIN 600MG PREMIX IVPB 600 MG/50 ML BAG IVPB SCH ×3 (02:04→18:37)
[2019-11-29] MEDS ORDERED: METHADONE HCL 40 MG DISPERSABLE TABLET ONE (05:27)
[2019-11-29] MEDS ORDERED: METHADONE HCL 10 MG TABLET ONE (05:27)
[2019-11-29] MEDS ORDERED: METHADONE HCL 5 MG TABLET ONE (05:28)
[2019-11-29] MEDS: METHADONE 40 MG, METHADONE 30 MG, METHADONE 5 MG PO SCH (05:43)
[2019-11-29 08:31] LABS: BASO % 0.6 % (0-2.0); EOS % 3.9 % (0-4.5); HEMATOCRIT 39.2 % (35.4-49); LYMPH % 41.7 % (8-40); MCH 30.8 pg (25.7-33.7); MCHC 33.1 g/dl (32.0-35.9); MEAN PLT VOLUME 8.9 fl (7.5-11.1); MONO % 13.3 % (3.8-10.2); NEUT % 40.5 % (42.8-82.8); PLATELET COUNT 89 K/MM3 (134-434); RBC 4.21 M/mm3 (4.00-5.60); RDW 14.3 % (11.9-15.9); WHITE BLOOD COUNT 3.1 K/mm3 (4.0-10.0)
--- NOTE | 2019-11-29 08:56 | PN ---
Progress Note (short form) - Note Progress Note: MRI reviewed remotely Discussed with patient yesterday about amp and he understands will try to schedule for monday morning for 2nd digit amputation will need karen/pvr's done prior needs pre op covid testing done please clear medically will see over weekend for pre op
[2019-11-29 09:04] LABS: ALBUMIN 3.5 g/dl (3.4-5.0); BILIRUBIN,TOTAL 0.3 mg/dL (0.2-1); BLOOD UREA NITROGEN 16.6 mg/dL (7-18); CREATININE 1.1 mg/dL (0.55-1.3); POTASSIUM 4.3 mmol/L (3.5-5.1); TOT PROT 7.8 g/dl (6.4-8.2)
[2019-11-29 09:11] LABS: CALCIUM 9.2 mg/dL (8.5-10.1); MAGNESIUM 2.4 mg/dL (1.8-2.4)
[2019-11-29] MEDS ORDERED: DEXTROSE 5%-WATER 100 ML IVPB ONE (09:38)
[2019-11-29] MEDS: VARENICLINE TARTRATE 0.5 MG TAB PO SCH ×2 (09:47→22:43)
[2019-11-29] MEDS: LACTULOSE 20 GM/30 ML UDC (FOR ORAL USE ONLY) PO SCH (09:47)
[2019-11-29] MEDS: amLODIPine BESYLATE 5 MG TABLET (FP) PO SCH (09:48)
[2019-11-29] MEDS: EMTRICITAB/RILPIVIRI/TENOF ALA (ODEFSEY) TABLET PO SCH (09:48)
[2019-11-29] MEDS: FUROSEMIDE 20 MG TABLET (FP) PO SCH (09:48)
[2019-11-29] MEDS: FLUTICASONE PROP 0.05% 16 GM NASAL SPRAY NS SCH (09:48)
[2019-11-29] MEDS: ENOXAPARIN NA (PORCINE) 40 MG/0.4 ML DISP.SYRIN SQ SCH (09:48)
[2019-11-29] MEDS: oxyCODONE HCL 5 MG TABLET PO PRN (09:49)
[2019-11-29] MEDS: CEFTRIAXONE 2 GM in DEXTROSE 5%-WATER 100 ML IVPB SCH (09:49)
--- NOTE | 2019-11-29 13:40 | PN ---
Progress Note (short form) - Note Progress Note: no complaints Vital Signs Period Temp Pulse Resp BP Sys/Forman Pulse Ox Last 24 Hr 98 F-98.6 F 59-78 18-20 126-136/70-99 91-96 cor-rrr lungs clear abd soft,nt toe unchanged CBC, BMP 11/29/19 07:53 11/29/19 07:53 mri- osteo distal aspect of second toe Microbiology 11/28/19 13:00 Foot - Left Gram Stain - Final 11/28/19 13:00 Foot - Left Wound Culture - Preliminary Staphylococcus Coagulase Neg 11/27/19 11:30 Blood - Peripheral Venous Blood Culture - Preliminary NO GROWTH OBTAINED AFTER 48 HOURS, INCUBATION TO CONTINUE FOR 3 DAYS. 11/27/19 11:30 Blood - Peripheral Venous Blood Culture - Preliminary NO GROWTH OBTAINED AFTER 48 HOURS, INCUBATION TO CONTINUE FOR 3 DAYS. a/p swelling second toe left foot- pen allergy well controlled HIV liver cirrhosis clindamycin and ceftriaxone podiatry evaluation-plan for amputation on Monday continue jigar for his HIV
--- NOTE | 2019-11-29 17:21 | PN ---
Physical Exam: SUBJECTIVE: Patient seen and examined. denies shortness of breath. foot pain controlled. OBJECTIVE: Patient is a 59 year old male with a significant past medical history of HIV (per chart review, CD4 count of 617 on 11/06/18), HTN, depression, heroin abuse (on methadone), osteomyelitis, anxiety, sciatica (on percocets), HCV who presents in the ED for worsening L 2nd toe pain/swelling sent by his podiatry (Dr. Reed). States he started noticing a callus on his two 3 weeks ago, but denies injury to the area. This past Monday, he started noticing swelling on the same toe, and then on Monday noticed swelling of his L foot. Says he only has been soaking his foot in water to alleviate the swelling. Denies fever, chills, nausea/vomiting, barone/d, chest pain, sob, abd pain, urinary/bowel symptoms. 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 lower ext mri: soft tissue swelling of dorsal foot compatible with cellulits, osteomyelitis distal phalanx of 2nd toe Vital Signs Period Temp Pulse Resp BP Sys/Forman Pulse Ox Last 24 Hr 98 F-98.6 F 59-78 18-20 126-136/70-99 91-96 GENERAL: The patient is awake, alert, and fully oriented, in no acute distress. HEAD: Normal with no signs of trauma. EYES: PERRL, extraocular movements intact, sclera anicteric, conjunctiva clear. No ptosis. ENT: Ears normal, nares patent, oropharynx clear without exudates, moist mucous membranes. NECK: Trachea midline, full range of motion, supple. LUNGS: Breath sounds equal, clear to auscultation bilaterally, no wheezes, no crackles, no accessory muscle use. HEART: Regular rate and rhythm ABDOMEN: Soft, nontender, nondistended, normoactive bowel sounds, no guarding, no rebound, no hepatosplenomegaly, no masses. EXTREMITIES: LLE swelling. s/p amputation of left (partial) 1st toe. 2nd digit on left foot + tenderness, + swelling, + fluctuance, no discharge. 2+ dp pulses b/l. NEUROLOGICAL: Normal speech, gait not observed. PSYCH: Normal mood, normal affect. SKIN: Warm, dry, normal turgor, no rashes or lesions noted Laboratory Results - last 24 hr 11/29/19 11/29/19 07:53 07:53 WBC 3.1 L RBC 4.21 Hgb 13.0 Hct 39.2 MCV 93.0 MCH 30.8 MCHC 33.1 RDW 14.3 Plt Count 89 L MPV 8.9 Absolute Neuts (auto) 1.3 L Neutrophils % 40.5 L Lymphocytes % 41.7 H Monocytes % 13.3 H Eosinophils % 3.9 Basophils % 0.6 Nucleated RBC % 0 Sodium 141 Potassium 4.3 Chloride 104 Carbon Dioxide 32 Anion Gap 6 L BUN 16.6 Creatinine 1.1 Est GFR (CKD-EPI)AfAm 83.53 Est GFR (CKD-EPI)NonAf 72.07 Random Glucose 84 Calcium 9.2 Magnesium 2.4 Total Bilirubin 0.3 AST 47 H ALT 20 Alkaline Phosphatase 82 Total Protein 7.8 Albumin 3.5 Active Medications Generic Name Dose Route Start Last Admin Trade Name Freq PRN Reason Stop Dose Admin Amlodipine Besylate 5 mg 11/27/19 15:15 11/29/19 09:48 Norvasc - PO 5 mg DAILY HAN Administration Docusate Sodium 100 mg 11/27/19 15:02 Colace - PO TID PRN CONSTIPATION Enoxaparin Sodium 40 mg 11/28/19 10:00 11/29/19 09:48 Lovenox - SQ 40 mg DAILY HAN Administration Fluticasone Propionate 1 spray 11/27/19 15:15 11/29/19 09:48 Flonase - NS 1 spray DAILY HAN Administration Furosemide 20 mg 11/27/19 16:00 11/29/19 09:48 Lasix - PO 20 mg DAILY HAN Administration Clindamycin Phosphate 600 mg in 50 mls @ 100 mls/hr 11/27/19 20:00 11/29/19 09:47 Cleocin 600 Mg Premix Ivpb - IVPB 100 mls/hr Q8H-IV HAN Administration Protocol Ceftriaxone Sodium 2 gm/ 100 mls @ 200 mls/hr 11/28/19 10:00 11/29/19 09:49 Dextrose IVPB 200 mls/hr DAILY HAN Administration Protocol Lactulose 20 gm 11/28/19 14:00 11/29/19 09:47 Cephulac (Oral Use) PO 20 gm DAILY HAN Administration Methadone HCl 40 mg/ Methadone 75 mg 11/28/19 11:15 11/29/19 05:43 HCl 30 mg/ Methadone HCl 5 mg PO 75 mg DAILY@0600 HAN Administration Oxycodone HCl 10 mg 11/28/19 13:59 11/29/19 09:49 Roxicodone - PO 10 mg Q12H PRN Administration PAIN LEVEL 7 - 10 Varenicline 0.5 mg 11/27/19 22:00 11/29/19 09:47 Chantix - PO 0.5 mg BID HAN Administration ASSESSMENT/PLAN: Problem List - Problems (1) Osteomyelitis of ankle or foot, left, acute Assessment/Plan: L foot xray with significant soft tissue swelling of L second toe w/o evidence of air. lower ext mri: soft tissue swelling of dorsal foot compatible with cellulits, osteomyelitis distal phalanx of 2nd toe on ceftriaxone/clindamycin for possible 2nd digit amputation per podiatry vascular duplex pending to rule out DVT pain management with oxycodone Code(s): M86.172 - OTHER ACUTE OSTEOMYELITIS, LEFT ANKLE AND FOOT (2) HIV (human immunodeficiency virus infection) Assessment/Plan: continue home meds Code(s): Z21 - ASYMPTOMATIC HUMAN IMMUNODEFICIENCY VIRUS INFECTION STATUS (3) Methadone maintenance therapy patient Assessment/Plan: on methadone maintenance. patient follows with pain specialist for back pain/hip pain also on percocets BID at home Istop reviewed, addiction medicine consulted Code(s): F11.20 - OPIOID DEPENDENCE, UNCOMPLICATED (4) Obesity (BMI 30-39.9) Assessment/Plan: outpatient follow up Code(s): E66.9 - OBESITY, UNSPECIFIED (5) DVT prophylaxis Assessment/Plan: lovenox 40mg daily Code(s): Z29.9 - ENCOUNTER FOR PROPHYLACTIC MEASURES, UNSPECIFIED (6) Leukopenia Assessment/Plan: similar to previous admission. monitor with daily labs Code(s): D72.819 - DECREASED WHITE BLOOD CELL COUNT, UNSPECIFIED (7) Thrombocytopenia Assessment/Plan: similar to previous admission. monitor with daily labs Code(s): D69.6 - THROMBOCYTOPENIA, UNSPECIFIED Visit type - Emergency Visit Emergency Visit: Yes ED Registration Date: 11/27/19 Care time: The patient presented to the Emergency Department on the above date and was hospitalized for further evaluation of their emergent condition. - New Patient This patient is new to me today: No - Critical Care Critical Care patient: No - Discharge Referral Referred to [facility] Med P.C.: No
[2019-11-30] MEDS: CLINDAMYCIN 600MG PREMIX IVPB 600 MG/50 ML BAG IVPB SCH ×3 (02:13→17:49)
[2019-11-30] MEDS: oxyCODONE HCL 5 MG TABLET PO PRN (02:17)
[2019-11-30] MEDS ORDERED: METHADONE HCL 10 MG TABLET ONE (05:41)
[2019-11-30] MEDS ORDERED: METHADONE HCL 40 MG DISPERSABLE TABLET ONE (05:41)
[2019-11-30] MEDS ORDERED: METHADONE HCL 5 MG TABLET ONE (05:41)
[2019-11-30] MEDS: METHADONE 40 MG, METHADONE 30 MG, METHADONE 5 MG PO SCH (05:59)
[2019-11-30 08:51] LABS: BASO % 0.3 % (0-2.0); EOS % 4.3 % (0-4.5); HEMATOCRIT 40.8 % (35.4-49); HEMOGLOBIN 13.4 GM/dL (11.7-16.9); LYMPH % 46.9 % (8-40); MCH 30.5 pg (25.7-33.7); MCHC 32.8 g/dl (32.0-35.9); MEAN CELL VOLUME 92.9 fl (80-96); MONO % 11.9 % (3.8-10.2); NEUT % 36.6 % (42.8-82.8); PLATELET COUNT 97 K/MM3 (134-434); RBC 4.39 M/mm3 (4.00-5.60); RDW 14.1 % (11.9-15.9); WHITE BLOOD COUNT 3.9 K/mm3 (4.0-10.0)
[2019-11-30 09:23] LABS: ALBUMIN 3.7 g/dl (3.4-5.0); BILIRUBIN,TOTAL 0.5 mg/dL (0.2-1); BLOOD UREA NITROGEN 15.1 mg/dL (7-18); MAGNESIUM 2.4 mg/dL (1.8-2.4); POTASSIUM 4.4 mmol/L (3.5-5.1); TOT PROT 8.4 g/dl (6.4-8.2)
[2019-11-30] MEDS ORDERED: PT OWN MED DRAWER 7, Y5N ONE (09:28)
[2019-11-30] MEDS ORDERED: DEXTROSE 5%-WATER 100 ML IVPB ONE (09:29)
[2019-11-30] MEDS: CEFTRIAXONE 2 GM in DEXTROSE 5%-WATER 100 ML IVPB SCH (09:48)
[2019-11-30] MEDS: amLODIPine BESYLATE 5 MG TABLET (FP) PO SCH (09:48)
[2019-11-30] MEDS: FUROSEMIDE 20 MG TABLET (FP) PO SCH (09:48)
[2019-11-30] MEDS: LACTULOSE 20 GM/30 ML UDC (FOR ORAL USE ONLY) PO SCH (09:49)
[2019-11-30] MEDS: ENOXAPARIN NA (PORCINE) 40 MG/0.4 ML DISP.SYRIN SQ SCH (09:50)
[2019-11-30] MEDS: FLUTICASONE PROP 0.05% 16 GM NASAL SPRAY NS SCH (09:50)
[2019-11-30] MEDS: EMTRICITAB/RILPIVIRI/TENOF ALA (ODEFSEY) TABLET PO SCH (09:50)
[2019-11-30] MEDS: VARENICLINE TARTRATE 0.5 MG TAB PO SCH ×2 (09:50→21:09)
--- NOTE | 2019-11-30 13:13 | PN ---
Progress Note (short form) - Note Progress Note: PODIATRY 59M w/ pmhx of HIV , HTN, depression, heroin abuse (on methadone), osteomyelitis, anxiety, sciatica, HCV who presents in the ED for worsening L 2nd toe pain/swelling sent by his podiatry (Dr. Reed). Doing well today. Afebrile. Denies any complaints. O: Vasc: DP/PT non palpable Derm: Left foot mild edema noted, there is gross edema and enlargment of th eleft 2nd digit with some minimal purulent drainage noted from the medial aspect of the 2nd digit, large callous buildup, no POP noted at this time, no erythema, no streaking, no bone exposed; Right foot wnl Neuro: Grossly decreased sensation noted karen wnl; pending final read MRI: osteo 2nd digit A: 59 y/o with HIV, HTN, hx of osteo with gross neuropathy presents with l2nd digit osteo of the left foot. P: Evaluated and reviewed Plan for atleast distal symes amputation on 2nd digit discussed may need full digit amp if skin does not allow for closure NPO past MN on monday for OR monday morning 1030
--- NOTE | 2019-11-30 13:29 | PN ---
Progress Note, Physician Chief Complaint: Doing well today. Afebrile. Denies any complaints. History of Present Illness: 59 Male with pmhx notable for HIV , HTN, depression, heroin abuse (on methadone), osteomyelitis, anxiety, sciatica, HCV who presents in the ED for worsening L 2nd toe pain/swelling sent by his podiatry (Dr. Reed). - Current Medication List Current Medications: Active Medications Amlodipine Besylate (Norvasc -) 5 mg PO DAILY [facility] Last Admin: 11/30/19 09:48 Dose: 5 mg Documented by: Docusate Sodium (Colace -) 100 mg PO TID PRN PRN Reason: CONSTIPATION Enoxaparin Sodium (Lovenox -) 40 mg SQ DAILY [facility] Last Admin: 11/30/19 09:50 Dose: Not Given Documented by: Fluticasone Propionate (Flonase -) 1 spray NS DAILY [facility] Last Admin: 11/30/19 09:50 Dose: 1 spray Documented by: Furosemide (Lasix -) 20 mg PO DAILY [facility] Last Admin: 11/30/19 09:48 Dose: 20 mg Documented by: Clindamycin Phosphate (Cleocin 600 Mg Premix Ivpb -) 600 mg in 50 mls @ 100 mls/hr IVPB Q8H-IV [facility]; Protocol Last Admin: 11/30/19 09:48 Dose: 100 mls/hr Documented by: Ceftriaxone Sodium 2 gm/ (Dextrose) 100 mls @ 200 mls/hr IVPB DAILY [facility]; Protocol Last Admin: 11/30/19 09:48 Dose: 200 mls/hr Documented by: Lactulose (Cephulac (Oral Use)) 20 gm PO DAILY [facility] Last Admin: 11/30/19 09:49 Dose: Not Given Documented by: Methadone HCl 40 mg/ Methadone (HCl 30 mg/ Methadone HCl 5 mg) 75 mg PO DAILY@0600 [facility] Last Admin: 11/30/19 05:59 Dose: 75 mg Documented by: Oxycodone HCl (Roxicodone -) 10 mg PO Q12H PRN PRN Reason: PAIN LEVEL 7 - 10 Last Admin: 11/30/19 02:17 Dose: 10 mg Documented by: Varenicline (Chantix -) 0.5 mg PO BID [facility] Last Admin: 11/30/19 09:50 Dose: 0.5 mg Documented by: - Objective Vital Signs: Vital Signs Temperature 98.1 F 11/30/19 10:00 Pulse Rate 69 11/30/19 10:00 Respiratory Rate 20 11/30/19 10:00 Blood Pressure 150/60 11/30/19 10:00 O2 Sat by Pulse Oximetry (%) 95 11/30/19 10:00 Constitutional: Yes: Well Nourished, No Distress, Calm Eyes: Yes: WNL, Conjunctiva Clear HENT: Yes: WNL, Atraumatic, Normocephalic Neck: Yes: WNL, Supple Cardiovascular: Yes: WNL, Regular Rate and Rhythm Respiratory: Yes: WNL, Regular, CTA Bilaterally Gastrointestinal: Yes: WNL, Normal Bowel Sounds, Soft, Abdomen, Obese Genitourinary: Yes: WNL Musculoskeletal: Yes: WNL Extremities: Yes: WNL, Amputation, Other (LE swelling. s/p amputation of left (partial) 1st toe. 2nd digit on left foot + tenderness, + swelling, + fluctuance, no discharge. 2+ dp pulses b/l.) Edema: Yes Edema: LLE: Trace, RLE: 1+ Integumentary: Yes: WNL Neurological: Yes: WNL, Alert, Oriented Psychiatric: Yes: WNL Labs: CBC, BMP 11/30/19 07:17 11/30/19 07:17 INR, PTT INR 1.12 (0.83-1.09) H 11/27/19 11:30 Impression/Plan Impression/Plan: ASSESSMENT/PLAN: Problem List - Problems (1) Osteomyelitis of ankle or foot, left, acute Assessment/Plan: L foot xray with significant soft tissue swelling of L second toe w/o evidence of air. lower ext mri: soft tissue swelling of dorsal foot compatible with cellulits, osteomyelitis distal phalanx of 2nd toe on ceftriaxone/clindamycin As per podiatry Plan for amputation on 2nd digit discussed may need full digit amp if skin does not allow for closure NPO past MN on monday for OR monday morning 1030 vascular duplex pending to rule out DVT pain management with oxycodone Code(s): M86.172 - OTHER ACUTE OSTEOMYELITIS, LEFT ANKLE AND FOOT (2) HIV (human immunodeficiency virus infection) Assessment/Plan: continue home meds Code(s): Z21 - ASYMPTOMATIC HUMAN IMMUNODEFICIENCY VIRUS INFECTION STATUS (3) Methadone maintenance therapy patient Assessment/Plan: on methadone maintenance. patient follows with pain specialist for back pain/hip pain also on percocets BID at home Istop reviewed, addiction medicine consulted Code(s): F11.20 - OPIOID DEPENDENCE, UNCOMPLICATED (4) Obesity (BMI 30-39.9) Assessment/Plan: outpatient follow up Code(s): E66.9 - OBESITY, UNSPECIFIED (5) DVT prophylaxis Assessment/Plan: lovenox 40mg daily Code(s): Z29.9 - ENCOUNTER FOR PROPHYLACTIC MEASURES, UNSPECIFIED (6) Leukopenia Assessment/Plan: similar to previous admission. monitor with daily labs Improved Code(s): D72.819 - DECREASED WHITE BLOOD CELL COUNT, UNSPECIFIED (7) Thrombocytopenia Assessment/Plan: Similar to previous admission. monitor with daily labs Improved Code(s): D69.6 - THROMBOCYTOPENIA, UNSPECIFIED Visit type - Emergency Visit Emergency Visit: Yes ED Registration Date: 11/27/19 Care time: The patient presented to the Emergency Department on the above date and was hospitalized for further evaluation of their emergent condition. - New Patient This patient is new to me today: Yes Date on this admission: 11/30/19 - Critical Care Critical Care patient: No - Discharge Referral Referred to [facility] No
[2019-12-01] MEDS: CLINDAMYCIN 600MG PREMIX IVPB 600 MG/50 ML BAG IVPB SCH ×3 (02:16→20:07)
[2019-12-01] MEDS ORDERED: METHADONE HCL 10 MG TABLET ONE (05:21)
[2019-12-01] MEDS ORDERED: METHADONE HCL 5 MG TABLET ONE (05:21)
[2019-12-01] MEDS ORDERED: METHADONE HCL 40 MG DISPERSABLE TABLET ONE (05:21)
[2019-12-01] MEDS: METHADONE 40 MG, METHADONE 30 MG, METHADONE 5 MG PO SCH (05:37)
[2019-12-01 09:04] LABS: BASO % 0.6 % (0-2.0); EOS % 4.8 % (0-4.5); HEMATOCRIT 41.9 % (35.4-49); HEMOGLOBIN 13.6 GM/dL (11.7-16.9); LYMPH % 37.7 % (8-40); MCH 30.1 pg (25.7-33.7); MCHC 32.6 g/dl (32.0-35.9); MEAN CELL VOLUME 92.3 fl (80-96); MEAN PLT VOLUME 8.4 fl (7.5-11.1); MONO % 10.7 % (3.8-10.2); NEUT % 46.2 % (42.8-82.8); PLATELET COUNT 106 K/MM3 (134-434); RBC 4.53 M/mm3 (4.00-5.60); RDW 14.4 % (11.9-15.9)
[2019-12-01] MEDS ORDERED: PT OWN MED DRAWER 7, Y5N ONE (09:17)
[2019-12-01] MEDS ORDERED: DEXTROSE 5%-WATER 100 ML IVPB ONE (09:17)
[2019-12-01 09:29] LABS: ALBUMIN 3.7 g/dl (3.4-5.0); BILIRUBIN,TOTAL 0.9 mg/dL (0.2-1); BLOOD UREA NITROGEN 16.4 mg/dL (7-18); CREATININE 1.1 mg/dL (0.55-1.3); MAGNESIUM 2.3 mg/dL (1.8-2.4); POTASSIUM 3.9 mmol/L (3.5-5.1); TOT PROT 8.4 g/dl (6.4-8.2)
[2019-12-01] MEDS: CEFTRIAXONE 2 GM in DEXTROSE 5%-WATER 100 ML IVPB SCH (09:34)
[2019-12-01] MEDS: FUROSEMIDE 20 MG TABLET (FP) PO SCH (09:35)
[2019-12-01] MEDS: LACTULOSE 20 GM/30 ML UDC (FOR ORAL USE ONLY) PO SCH (09:35)
[2019-12-01] MEDS: amLODIPine BESYLATE 5 MG TABLET (FP) PO SCH (09:35)
[2019-12-01] MEDS: ENOXAPARIN NA (PORCINE) 40 MG/0.4 ML DISP.SYRIN SQ SCH (09:35)
[2019-12-01] MEDS: FLUTICASONE PROP 0.05% 16 GM NASAL SPRAY NS SCH (09:35)
[2019-12-01] MEDS: VARENICLINE TARTRATE 0.5 MG TAB PO SCH ×2 (10:23→23:07)
[2019-12-01] MEDS: EMTRICITAB/RILPIVIRI/TENOF ALA (ODEFSEY) TABLET PO SCH (10:23)
--- NOTE | 2019-12-01 14:33 | PN ---
Progress Note, Physician Chief Complaint: Left distal phalanx 2nd toe osteomyelitis Liver cirrhosis HIV History of Present Illness: NAD sitting in bed, awake and alert - Current Medication List Current Medications: Active Medications Amlodipine Besylate (Norvasc -) 5 mg PO DAILY [facility] Last Admin: 12/01/19 09:35 Dose: 5 mg Documented by: Docusate Sodium (Colace -) 100 mg PO TID PRN PRN Reason: CONSTIPATION Enoxaparin Sodium (Lovenox -) 40 mg SQ DAILY [facility] Last Admin: 12/01/19 09:35 Dose: Not Given Documented by: Fluticasone Propionate (Flonase -) 1 spray NS DAILY [facility] Last Admin: 12/01/19 09:35 Dose: 1 spray Documented by: Furosemide (Lasix -) 20 mg PO DAILY [facility] Last Admin: 12/01/19 09:35 Dose: 20 mg Documented by: Clindamycin Phosphate (Cleocin 600 Mg Premix Ivpb -) 600 mg in 50 mls @ 100 mls/hr IVPB Q8H-IV [facility]; Protocol Last Admin: 12/01/19 09:34 Dose: 100 mls/hr Documented by: Ceftriaxone Sodium 2 gm/ (Dextrose) 100 mls @ 200 mls/hr IVPB DAILY [facility]; Protocol Last Admin: 12/01/19 09:34 Dose: 200 mls/hr Documented by: Lactulose (Cephulac (Oral Use)) 20 gm PO DAILY [facility] Last Admin: 12/01/19 09:35 Dose: Not Given Documented by: Methadone HCl 40 mg/ Methadone (HCl 30 mg/ Methadone HCl 5 mg) 75 mg PO DAILY@0600 [facility] Last Admin: 12/01/19 05:37 Dose: 75 mg Documented by: Oxycodone HCl (Roxicodone -) 10 mg PO Q12H PRN PRN Reason: PAIN LEVEL 7 - 10 Last Admin: 11/30/19 02:17 Dose: 10 mg Documented by: Varenicline (Chantix -) 0.5 mg PO BID [facility] Last Admin: 12/01/19 10:23 Dose: 0.5 mg Documented by: - Objective Vital Signs: Vital Signs Temperature 98.7 F 12/01/19 06:00 Pulse Rate 59 L 12/01/19 06:00 Respiratory Rate 20 12/01/19 06:00 Blood Pressure 143/76 12/01/19 06:00 O2 Sat by Pulse Oximetry (%) 95 12/01/19 06:00 Constitutional: Yes: Well Nourished, No Distress, Calm Cardiovascular: Yes: Regular Rate and Rhythm Respiratory: Yes: Regular, CTA Bilaterally Gastrointestinal: Yes: Normal Bowel Sounds, Soft, Abdomen, Obese Genitourinary: Yes: WNL Musculoskeletal: Yes: WNL Extremities: Yes: Other (Left 2nd toe necrosis) Edema: No Peripheral Pulses WNL: No Peripheral Pulses: Left Doralis Pedis: 1+ Integumentary: Yes: Other (Left 2nd toe necrosis) Wound/Incision: Yes: Clean/Dry, Open to air Neurological: Yes: Alert, Oriented Psychiatric: Yes: Alert, Oriented Labs: CBC, BMP 12/01/19 08:34 12/01/19 08:34 INR, PTT INR 1.12 (0.83-1.09) H 11/27/19 11:30 Problem List - Problems (1) Osteomyelitis of ankle or foot, left, acute Assessment/Plan: -Plan for OR in AM by podiatry for Left 2nd toe amputation -NPO past midnight -COVID 19 PCR still pending -Continue IV Rocephin + Clindamycin -ID consult on board -Pt afebrile -No leukocytosis Problems reviewed: Yes Code(s): M86.172 - OTHER ACUTE OSTEOMYELITIS, LEFT ANKLE AND FOOT (2) Cirrhosis of liver Assessment/Plan: -Encouraged compliance to lactulose to have at least 3-4 BM's/day Problems reviewed: Yes Code(s): K74.60 - UNSPECIFIED CIRRHOSIS OF LIVER (3) Low back pain with sciatica Assessment/Plan: -Pt denies any pain at this time, states it is under control -Continue Methadone + oxycodone Problems reviewed: Yes Code(s): M54.40 - LUMBAGO WITH SCIATICA, UNSPECIFIED SIDE (4) Methadone maintenance therapy patient Problems reviewed: Yes Code(s): F11.20 - OPIOID DEPENDENCE, UNCOMPLICATED Assessment/Plan See problem list GI ppx DVT ppx Medically stable for OR with acceptable OR risks
[2019-12-01] MEDS: oxyCODONE HCL 5 MG TABLET PO PRN (23:08)
[2019-12-02] MEDS: CLINDAMYCIN 600MG PREMIX IVPB 600 MG/50 ML BAG IVPB SCH ×3 (01:00→17:01)
[2019-12-02] MEDS ORDERED: METHADONE HCL 5 MG TABLET ONE (04:37)
[2019-12-02] MEDS ORDERED: METHADONE HCL 10 MG TABLET ONE (04:38)
[2019-12-02] MEDS ORDERED: METHADONE HCL 40 MG DISPERSABLE TABLET ONE (04:38)
[2019-12-02] MEDS: METHADONE 40 MG, METHADONE 30 MG, METHADONE 5 MG PO SCH (05:15)
[2019-12-02 08:08] LABS: BASO % 0.6 % (0-2.0); EOS % 5.7 % (0-4.5); HEMATOCRIT 41.9 % (35.4-49); HEMOGLOBIN 13.7 GM/dL (11.7-16.9); LYMPH % 34.9 % (8-40); MCH 29.9 pg (25.7-33.7); MCHC 32.7 g/dl (32.0-35.9); MEAN CELL VOLUME 91.4 fl (80-96); MEAN PLT VOLUME 8.3 fl (7.5-11.1); MONO % 8.9 % (3.8-10.2); NEUT % 49.9 % (42.8-82.8); PLATELET COUNT 105 K/MM3 (134-434); RBC 4.58 M/mm3 (4.00-5.60); WHITE BLOOD COUNT 4.1 K/mm3 (4.0-10.0)
[2019-12-02 08:32] LABS: ALBUMIN 3.6 g/dl (3.4-5.0); BILIRUBIN,TOTAL 0.7 mg/dL (0.2-1); BLOOD UREA NITROGEN 15.3 mg/dL (7-18); CALCIUM 9.1 mg/dL (8.5-10.1); CREATININE 1.1 mg/dL (0.55-1.3); MAGNESIUM 2.3 mg/dL (1.8-2.4); POTASSIUM 3.6 mmol/L (3.5-5.1); TOT PROT 8.2 g/dl (6.4-8.2)
[2019-12-02] MEDS: LACTULOSE 20 GM/30 ML UDC (FOR ORAL USE ONLY) PO SCH (09:29)
[2019-12-02] MEDS ORDERED: DEXTROSE 5%-WATER 100 ML IVPB ONE (09:44)
[2019-12-02] MEDS: CEFTRIAXONE 2 GM in DEXTROSE 5%-WATER 100 ML IVPB SCH (09:48)
[2019-12-02] MEDS ORDERED: FAMOTIDINE 20 MG TABLET PO SCH (10:00)
[2019-12-02] MEDS ORDERED: LIDOCAINE HCL 2% (20ML MULTI-DOSE VIAL) ONE (10:08)
[2019-12-02] MEDS ORDERED: LIDOCAINE HCL/PF 2% SDV 5ML VIAL ONE (10:46)
[2019-12-02] MEDS ORDERED: MIDAZOLAM HCL 2 MG/2 ML SINGLE DOSE VIAL ONE (10:46)
[2019-12-02] MEDS ORDERED: PROPOFOL 20 ML ONE ×2 (10:46)
[2019-12-02] MEDS: VARENICLINE TARTRATE 0.5 MG TAB PO SCH ×2 (10:49→21:37)
[2019-12-02] MEDS: FLUTICASONE PROP 0.05% 16 GM NASAL SPRAY NS SCH (10:49)
[2019-12-02] MEDS: EMTRICITAB/RILPIVIRI/TENOF ALA (ODEFSEY) TABLET PO SCH (10:50)
[2019-12-02] MEDS: amLODIPine BESYLATE 5 MG TABLET (FP) PO SCH (10:50)
[2019-12-02] MEDS: FUROSEMIDE 20 MG TABLET (FP) PO SCH (10:50)
--- NOTE | 2019-12-02 11:02 | PN ---
Progress Note (short form) - Note Progress Note: NPO CONFIRMED DISCUSSED PROCEUDRE AND ALL QUESTIONS AND CONCNS ADDRESSED ON IV ABX FROM THE FLOOR CONSENT SIGNED PARTIAL VS FULL 2ND DIGIT AMP LEFT FOOT.
[2019-12-02] MEDS ORDERED: LIDOCAINE HCL 2% (50ML VIAL) NR ONE (11:24)
[2019-12-02] MEDS ORDERED: ONDANSETRON 4 MG/2 ML VIAL IVPUSH PRN ×2 (11:32→12:51)
[2019-12-02] MEDS ORDERED: SODIUM CHLORIDE 1,000 ML IV SCH (11:45)
--- NOTE | 2019-12-02 11:53 | OP ---
Operative Note - Note: Operative Date: 12/02/19 Pre-Operative Diagnosis: Left 2nd digit osteo Operation: LEft 2nd digit symes amputation Findings: see dictation Post-Operative Diagnosis: Same as Pre-op Surgeon: Luis Rivas Anesthesia: Local, MAC Specimens Removed: distal digit - path. proximal margin - path and micro Estimated Blood Loss (mls): 5 Operative Report Dictated: No
--- NOTE | 2019-12-02 12:03 | OPR ---
Date: 12/01 Pre op: Left foot 2nd digit oste Post op: Same Procedure: left 2nd digit symes amputation Surgeon: mich Anesthesia: MAC/Local Implants: None 59 y/o male seen and evaluated at bedside with the above mentioned conditions. Patient requires surgical intervention for the conditions. After careful explanation of risks vs benefits of the proposed procedure the consent form was signed. NPO status was confirmed and patient was on iv abx from the floor. Patient was transported to the operating room and placed on the OR table in the supine position. An ankle tourniquet was placed to the patients left ankle in supramalleolar position at 250 mmhg. The patient was prepped and draped in the usual sterile manner. After induction a local injection of 13 cc of 2% lidocaine plain was injection locally around the 2nd digit. The tourniquet was inflated and the procedure began. Attention was directed to the left foot where there was a notable size increase in the distal aspect of the 2nd digit. A fishmouth type incision was made extending around the 2nd PIPJ. This incision was deepened and the digit was removed at this joint and passed from the operative field. A decision was made that there was enough plantar skin to allow for a good closure so only the head of the proximal phalanx was then resected and was passed from the operative field. This was sent for proximal margin path and micro to r/o further infection although the bone looked nice and healthy. The wound was flushed. And then closed in the routine manner with 4-0 nylon. The tourniquet was released and a nice healthy blood flow was noted to the 2nd digit. The foot ws then dressed with adaptic, 4x4, kerlix and suzette. Patient tolerated anesthesia and procedure well and was transported to the recovery room with VSS and NVSI to the left foot. Patient will be followed on the floors. To be minimal WB to the foot for next 24-48 hours.
--- NOTE | 2019-12-02 14:21 | EKG ---
Test Reason : Blood Pressure : / mmHG Vent. Rate : 064 BPM Atrial Rate : 064 BPM P-R Int : 302 ms QRS Dur : 110 ms QT Int : 474 ms P-R-T Axes : 069 000 012 degrees QTc Int : 489 ms SINUS RHYTHM WITH 1ST DEGREE A-V BLOCK PROLONGED QT ABNORMAL ECG WHEN COMPARED WITH ECG OF 27-NOV-2019 13:38, T WAVE INVERSION NO LONGER EVIDENT IN ANTEROLATERAL LEADS Confirmed by Ayana Conway ([id number]) on 12/02/2019 2:21:23 PM Referred By: Confirmed By:Ayana Conway
--- NOTE | 2019-12-02 14:58 | CON.CARD ---
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 Had toe amp today. In PACU had some missed beats on tele. Pt feels well. No cp sob palps dizzy loc pnd orthopnea le edema. Exercises often w/o limiting sxs. pmh: per hpi psh: toe surgery social: as per hpi fam: no premature cad, scd ros: per hpi; all others nl meds: Ambulatory Orders Methadone [Dolophine -] 75 mg PO DAILY@0600 [facility] 1 07/05/17 Docusate Sodium [Colace] 100 mg PO TID PRN 11/21/18 Amlodipine Besylate [Norvasc -] 5 mg PO DAILY #30 tablet 08/12/19 Emtricitab/Rilpiviri/Tenof Ala [Odefsey Tablet] 1 each PO DAILY #30 tablet 08/12/19 Ergocalciferol (Vitamin D2) [Vitamin D2] 50,000 unit PO Q7D #4 capsule 08/12/19 Sodium Chloride [Saline Nasal [place]] 1 - 2 spray NS PRN #1 spray 08/12/19 Fluticasone Prop 0.05% Nasal [Flonase -] 1 - 2 spray NS DAILY #1 spray 09/11/19 Varenicline Tartrate [Chantix] 0.5 mg PO BID #60 tab 10/10/19 Lactulose (Oral Use) [Cephulac -] 20 gm PO DAILY #1 bottle 11/11/19 Furosemide [Lasix -] 20 mg PO DAILY 11/27/19 Hydrocodone/Acetaminophen [[place] 10-325 Tablet] 1 each PO BID [facility] 2 11/27/19 Vital Signs Period Temp Pulse Resp BP Sys/Forman Pulse Ox Last 24 Hr 98.0 F-98.6 F 48-71 14-20 108-170/57-98 95-100 nad no jvd rrr s1s2 no mrg cta bl nl eff aao3 no le e/c/c abd nt nd pos bs no jaundice diaphoresis pos dp pt no carotid bruits Laboratory Last Values WBC 4.1 K/mm3 (4.0-10.0) 12/02/19 07:50 RBC 4.58 M/mm3 (4.00-5.60) 12/02/19 07:50 Hgb 13.7 GM/dL (11.7-16.9) 12/02/19 07:50 Hct 41.9 % (35.4-49) 12/02/19 07:50 MCV 91.4 fl (80-96) 12/02/19 07:50 MCH 29.9 pg (25.7-33.7) 12/02/19 07:50 MCHC 32.7 g/dl (32.0-35.9) 12/02/19 07:50 RDW 14.0 % (11.9-15.9) 12/02/19 07:50 Plt Count 105 K/MM3 (134-434) L 12/02/19 07:50 MPV 8.3 fl (7.5-11.1) 12/02/19 07:50 Absolute Neuts (auto) 2.0 K/mm3 (1.5-8.0) 12/02/19 07:50 Neutrophils % 49.9 % (42.8-82.8) 12/02/19 07:50 Lymphocytes % 34.9 % (8-40) 12/02/19 07:50 Monocytes % 8.9 % (3.8-10.2) 12/02/19 07:50 Eosinophils % 5.7 % (0-4.5) H 12/02/19 07:50 Basophils % 0.6 % (0-2.0) 12/02/19 07:50 Nucleated RBC % 0 % (0-0) 12/02/19 07:50 ESR 79 mm/hr (0-20) H 11/27/19 11:30 PT with INR 13.20 SEC (9.7-13.0) H 11/27/19 11:30 INR 1.12 (0.83-1.09) H 11/27/19 11:30 Sodium 138 mmol/L (136-145) 12/02/19 07:50 Potassium 3.6 mmol/L (3.5-5.1) 12/02/19 07:50 Chloride 102 mmol/L (98-107) 12/02/19 07:50 Carbon Dioxide 32 mmol/L (21-32) 12/02/19 07:50 Anion Gap 5 MMOL/L (8-16) L 12/02/19 07:50 BUN 15.3 mg/dL (7-18) 12/02/19 07:50 Creatinine 1.1 mg/dL (0.55-1.3) 12/02/19 07:50 Est GFR (CKD-EPI)AfAm 83.53 12/02/19 07:50 Est GFR (CKD-EPI)NonAf 72.07 12/02/19 07:50 Random Glucose 97 mg/dL (74-106) 12/02/19 07:50 Calcium 9.1 mg/dL (8.5-10.1) 12/02/19 07:50 Phosphorus 3.4 mg/dL (2.5-4.9) 11/28/19 07:05 Magnesium 2.3 mg/dL (1.8-2.4) 12/02/19 07:50 Total Bilirubin 0.7 mg/dL (0.2-1) 12/02/19 07:50 AST 63 U/L (15-37) H 12/02/19 07:50 ALT 23 U/L (13-61) 12/02/19 07:50 Alkaline Phosphatase 84 U/L (45-117) 12/02/19 07:50 C-Reactive Protein 2.5 MG/DL (0.00-0.3) H 11/27/19 11:30 Total Protein 8.2 g/dl (6.4-8.2) 12/02/19 07:50 Albumin 3.6 g/dl (3.4-5.0) 12/02/19 07:50 COVID-19 (ROBERT) Not detected (Not Detected) 11/27/19 13:20 ecg 11/27/19, 12/02/19: sr 50s,60s, 1stavb, nonspec tw changes, no st changes echo 11/2017: no sig abnormalities mibi 11/2017: no ischemia cxr: no sig chf tele: sr, 1stavb, rare non conducted p waves, no sig pauses, no pathologic bradycardia a/p: 59 m hx hiv, htn, 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 abnl ecg, bradycardia: -ecgs, tele reviewed. 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 After surgery today tele showing same 1st avb but also sinus mert and occasional non conducted p waves. These are benign and most likely related to sedation used in periop setting. Currently tele showing sr 60s-70s, no pauses. No need for further cardiac testing or tele at this time. htn: -cont norvasc toe osteo: -s/p surgery -abx per ID
[2019-12-02] MEDS ORDERED: amLODIPine BESYLATE 5 MG TABLET (FP) PO ONE (16:01)
--- NOTE | 2019-12-02 16:01 | PN ---
Physical Exam: SUBJECTIVE: Patient seen and examined at bedside, complains of mod. pain, s/p Op OBJECTIVE: Vital Signs Period Temp Pulse Resp BP Sys/Forman Pulse Ox Last 24 Hr 98 F-98.6 F 48-71 14-20 108-170/57-98 94-100 GENERAL: The patient is awake, alert, and fully oriented, in no acute distress. HEAD: Normal with no signs of trauma. EYES: PERRL, extraocular movements intact, sclera anicteric, conjunctiva clear. No ptosis. ENT: Ears normal, nares patent, oropharynx clear without exudates, moist mucous membranes. NECK: Trachea midline, full range of motion, supple. LUNGS: Breath sounds equal, clear to auscultation bilaterally, no wheezes, no crackles, no accessory muscle use. HEART: Regular rate and rhythm, S1, S2 without murmur, rub or gallop. ABDOMEN: Soft, nontender, nondistended, normoactive bowel sounds, no guarding, no rebound, no hepatosplenomegaly, no masses. EXTREMITIES: 2+ pulses, warm, well-perfused, no edema. lt foot in surgical dressing NEUROLOGICAL: Cranial nerves II through XII grossly intact. Normal speech, gait not observed. Laboratory Results - last 24 hr 12/02/19 12/02/19 07:50 07:50 WBC 4.1 RBC 4.58 Hgb 13.7 Hct 41.9 MCV 91.4 MCH 29.9 MCHC 32.7 RDW 14.0 Plt Count 105 L MPV 8.3 Absolute Neuts (auto) 2.0 Neutrophils % 49.9 Lymphocytes % 34.9 Monocytes % 8.9 Eosinophils % 5.7 H Basophils % 0.6 Nucleated RBC % 0 Sodium 138 Potassium 3.6 Chloride 102 Carbon Dioxide 32 Anion Gap 5 L BUN 15.3 Creatinine 1.1 Est GFR (CKD-EPI)AfAm 83.53 Est GFR (CKD-EPI)NonAf 72.07 Random Glucose 97 Calcium 9.1 Magnesium 2.3 Total Bilirubin 0.7 AST 63 H ALT 23 Alkaline Phosphatase 84 Total Protein 8.2 Albumin 3.6 Active Medications Generic Name Dose Route Start Last Admin Trade Name Freq PRN Reason Stop Dose Admin Amlodipine Besylate 5 mg 12/03/19 10:00 Norvasc - PO DAILY [facility] Docusate Sodium 100 mg 12/02/19 12:51 Colace - PO TID PRN CONSTIPATION Famotidine 20 mg 12/03/19 10:00 Pepcid - PO DAILY [facility] Fentanyl 25 mcg 12/02/19 12:51 Sublimaze Injection - IVPUSH [id number] PRN PAIN-PACU ORDER X 4 DOSES ONLY Fentanyl 50 mcg 12/02/19 12:51 Sublimaze Injection - IVPUSH [id number] PRN PAIN-PACU ORDER X 4 DOSES ONLY Fluticasone Propionate 1 spray 12/03/19 10:00 Flonase - NS DAILY [facility] Furosemide 20 mg 12/03/19 10:00 Lasix - PO DAILY [facility] Ceftriaxone Sodium 2 gm/ 100 mls @ 200 mls/hr 12/03/19 10:00 Dextrose IVPB DAILY [facility] Protocol Clindamycin Phosphate 600 mg in 50 mls @ 100 mls/hr 12/02/19 18:00 Cleocin 600 Mg Premix Ivpb - IVPB Q8H-IV [facility] Protocol Sodium Chloride 1,000 mls @ 42 mls/hr 12/02/19 12:51 Normal Saline - IV ASDIR [facility] Lactulose 20 gm 12/03/19 10:00 Cephulac (Oral Use) PO DAILY [facility] Methadone HCl 40 mg/ Methadone 75 mg 12/03/19 06:00 HCl 30 mg/ Methadone HCl 5 mg PO DAILY@0600 [facility] Ondansetron HCl 4 mg 12/02/19 12:51 Zofran Injection IVPUSH Q6H PRN NAUSEA AND/OR VOMITING Oxycodone HCl 10 mg 12/02/19 12:51 Roxicodone - PO Q12H PRN PAIN LEVEL 7 - 10 Varenicline 0.5 mg 12/02/19 22:00 Chantix - PO BID [facility] ASSESSMENT/PLAN: 59 m hx hiv, htn, 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 Had toe amp today # LT 2nd toe OM s/p amputation IVF, IV abx, pain management as indicated had bradycardia in PACU, HR in 30s, with possible 2nd degree block cardiology consult appreciated will continue norvasc c/w chantix HIV HTN heroin abuse on methadone HCV, cirrhosis (MELD 8) Visit type - Emergency Visit Emergency Visit: Yes ED Registration Date: 11/27/19 Care time: The patient presented to the Emergency Department on the above date and was hospitalized for further evaluation of their emergent condition. - New Patient This patient is new to me today: Yes Date on this admission: 12/02/19 - Critical Care Critical Care patient: No - Discharge Referral Referred to [facility] No
[2019-12-02] MEDS: SODIUM CHLORIDE 1,000 ML IV SCH ×2 (16:30→17:04)
[2019-12-02] MEDS: oxyCODONE HCL 5 MG TABLET PO PRN (17:17)
[2019-12-02] MEDS ORDERED: PT OWN MED DRAWER 7, Y5N ONE (20:57)
[2019-12-03] MEDS: CLINDAMYCIN 600MG PREMIX IVPB 600 MG/50 ML BAG IVPB SCH ×2 (01:58→09:34)
[2019-12-03] MEDS ORDERED: oxyCODONE HCL 5 MG TABLET PO ONE (02:24)
[2019-12-03] MEDS ORDERED: METHADONE HCL 5 MG TABLET ONE (05:52)
[2019-12-03] MEDS ORDERED: METHADONE HCL 40 MG DISPERSABLE TABLET ONE (05:53)
[2019-12-03] MEDS ORDERED: METHADONE HCL 10 MG TABLET ONE (05:53)
[2019-12-03] MEDS: METHADONE 40 MG, METHADONE 30 MG, METHADONE 5 MG PO SCH (05:54)
[2019-12-03 07:44] LABS: BASO % 0.4 % (0-2.0); HEMATOCRIT 39.7 % (35.4-49); HEMOGLOBIN 12.9 GM/dL (11.7-16.9); MCHC 32.5 g/dl (32.0-35.9); MEAN CELL VOLUME 92.4 fl (80-96); MEAN PLT VOLUME 8.9 fl (7.5-11.1); MONO % 15.4 % (3.8-10.2); NEUT % 46.2 % (42.8-82.8); PLATELET COUNT 86 K/MM3 (134-434)
[2019-12-03 08:17] LABS: ALBUMIN 3.4 g/dl (3.4-5.0); BILIRUBIN,TOTAL 0.5 mg/dL (0.2-1); BLOOD UREA NITROGEN 15.3 mg/dL (7-18); CALCIUM 8.7 mg/dL (8.5-10.1); CREATININE 1.1 mg/dL (0.55-1.3); MAGNESIUM 2.4 mg/dL (1.8-2.4); POTASSIUM 4.2 mmol/L (3.5-5.1); TOT PROT 7.7 g/dl (6.4-8.2)
[2019-12-03] MEDS ORDERED: DEXTROSE 5%-WATER 100 ML IVPB ONE (09:22)
[2019-12-03] MEDS: CEFTRIAXONE 2 GM in DEXTROSE 5%-WATER 100 ML IVPB SCH (09:33)
[2019-12-03] MEDS: LACTULOSE 20 GM/30 ML UDC (FOR ORAL USE ONLY) PO SCH (09:34)
[2019-12-03] MEDS: FAMOTIDINE 20 MG TABLET PO SCH (09:34)
[2019-12-03] MEDS: amLODIPine BESYLATE 5 MG TABLET (FP) PO SCH (09:34)
[2019-12-03] MEDS ORDERED: PT OWN MED DRAWER 7, Y5N ONE ×3 (09:35→19:13)
[2019-12-03] MEDS: FUROSEMIDE 20 MG TABLET (FP) PO SCH (09:36)
[2019-12-03] MEDS: VARENICLINE TARTRATE 0.5 MG TAB PO SCH ×2 (09:36→21:05)
[2019-12-03] MEDS: EMTRICITAB/RILPIVIRI/TENOF ALA (ODEFSEY) TABLET PO SCH (09:37)
[2019-12-03] MEDS: FLUTICASONE PROP 0.05% 16 GM NASAL SPRAY NS SCH (09:41)
[2019-12-03] MEDS: SODIUM CHLORIDE 1,000 ML IV SCH (12:58)
[2019-12-03] MEDS: oxyCODONE HCL 5 MG TABLET PO PRN ×2 (12:59→21:07)
--- NOTE | 2019-12-03 13:40 | PN ---
Progress Note (short form) - Note Progress Note: cc: toe osteo s: no chest pain, palps dizziness, dyspnea Current Medications Generic Name Dose Route Start Last Admin Trade Name Freq PRN Reason Stop Dose Admin Amlodipine Besylate 5 mg 12/03/19 10:00 12/03/19 09:34 Norvasc - PO 5 mg DAILY [facility] Administration Docusate Sodium 100 mg 12/02/19 12:51 Colace - PO TID PRN CONSTIPATION Famotidine 20 mg 12/03/19 10:00 12/03/19 09:34 Pepcid - PO 20 mg DAILY [facility] Administration Fentanyl 25 mcg 12/02/19 12:51 Sublimaze Injection - IVPUSH [id number] PRN PAIN-PACU ORDER X 4 DOSES ONLY Fentanyl 50 mcg 12/02/19 12:51 Sublimaze Injection - IVPUSH [id number] PRN PAIN-PACU ORDER X 4 DOSES ONLY Fluticasone Propionate 1 spray 12/03/19 10:00 12/03/19 09:41 Flonase - NS 1 spr DAILY [facility] Administration Furosemide 20 mg 12/03/19 10:00 12/03/19 09:36 Lasix - PO 20 mg DAILY [facility] Administration Ceftriaxone Sodium 2 gm/ 100 mls @ 200 mls/hr 12/03/19 10:00 12/03/19 09:33 Dextrose IVPB 200 mls/hr DAILY [facility] Administration Protocol Clindamycin Phosphate 600 mg in 50 mls @ 100 mls/hr 12/02/19 18:00 12/03/19 09:34 Cleocin 600 Mg Premix Ivpb - IVPB 100 mls/hr Q8H-IV [facility] Administration Protocol Sodium Chloride 1,000 mls @ 42 mls/hr 12/02/19 12:51 12/03/19 12:58 Normal Saline - IV Not Given ASDIR [facility] Lactulose 20 gm 12/03/19 10:00 12/03/19 09:34 Cephulac (Oral Use) PO 20 gm DAILY [facility] Administration Methadone HCl 40 mg/ Methadone 75 mg 12/03/19 06:00 12/03/19 05:54 HCl 30 mg/ Methadone HCl 5 mg PO 75 mg DAILY@0600 [facility] Administration Ondansetron HCl 4 mg 12/02/19 12:51 Zofran Injection IVPUSH Q6H PRN NAUSEA AND/OR VOMITING Oxycodone HCl 10 mg 12/02/19 12:51 12/03/19 12:59 Roxicodone - PO 10 mg Q12H PRN Administration PAIN LEVEL 7 - 10 Varenicline 0.5 mg 12/02/19 22:00 12/03/19 09:36 Chantix - PO 0.5 mg BID [facility] Administration Vital Signs Period Temp Pulse Resp BP Sys/Forman Pulse Ox Last 24 Hr 98 F-98.6 F 52-78 14-19 115-170/58-93 92-100 nad no jvd rrr s1s2 no mrg cta bl nl eff aao3 no le e/c/c abd nt nd pos bs no jaundice diaphoresis pos dp pt no carotid bruits ecg 11/27/19, 12/02/19: sr 50s,60s, 1stavb, nonspec tw changes, no st changes echo 11/2017: no sig abnormalities mibi 11/2017: no ischemia cxr: no sig chf tele: sr, 1stavb, rare non conducted p waves, no sig pauses, no pathologic bradycardia a/p: 59 m hx hiv, htn, 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 abnl ecg, bradycardia: -ecgs, tele reviewed. 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 After surgery tele showed same 1st avb but also sinus mert and occasional non conducted p waves. These are benign and most likely related to sedation used in periop setting. - HR now stable. No need for further cardiac testing or tele at this time. htn: -cont norvasc toe osteo: -s/p surgery -abx per ID
[2019-12-03] MEDS ORDERED: oxyCODONE HCL 5 MG TABLET PO PRN (13:52)
--- NOTE | 2019-12-03 13:53 | PN ---
Physical Exam: SUBJECTIVE: Patient seen and examined. denies any pain, denies malaise. OBJECTIVE: Patient is a 59 year old male with a significant past medical history of HIV (per chart review, CD4 count of 617 on 11/06/18), HTN, depression, heroin abuse (on methadone), osteomyelitis, anxiety, sciatica (on percocets), HCV who present s in the ED for worsening L 2nd toe pain/swelling sent by his podiatry (Dr. Reed). States he started noticing a callus on his two 3 weeks ago, but denies injury to the area. This past Monday, he started noticing swelling on the same toe, and then on Monday noticed swelling of his L foot. Says he only has been soaking his foot in water to alleviate the swelling. Denies fever, chills, nausea/vomiting, barone/d, chest pain, sob, abd pain, urinary/bowel symptoms. 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 lower ext mri: soft tissue swelling of dorsal foot compatible with cellulits, osteomyelitis distal phalanx of 2nd toe on 12/02/2019: patient is s/p left 2nd digit symes amputation Vital Signs Period Temp Pulse Resp BP Sys/Forman Pulse Ox Last 24 Hr 98 F-98.6 F 55-78 14-19 115-170/58-93 92-100 GENERAL: The patient is awake, alert, and fully oriented, in no acute distress. HEAD: Normal with no signs of trauma. EYES: PERRL, extraocular movements intact, sclera anicteric, conjunctiva clear. No ptosis. ENT: Ears normal, nares patent, oropharynx clear without exudates, moist mucous membranes. NECK: Trachea midline, full range of motion, supple. LUNGS: Breath sounds equal, clear to auscultation bilaterally, no wheezes, no crackles, no accessory muscle use. HEART: Regular rate and rhythm ABDOMEN: Soft, nontender, nondistended, normoactive bowel sounds, no guarding, no rebound, no hepatosplenomegaly, no masses. EXTREMITIES: LLE swelling. dressing c/d/i. toes not viewed by me. NEUROLOGICAL: Normal speech, gait not observed. PSYCH: Normal mood, normal affect. SKIN: Warm, dry, normal turgor, no rashes or lesions noted Laboratory Results - last 24 hr 12/03/19 12/03/19 06:35 06:35 WBC 4.0 RBC 4.30 Hgb 12.9 Hct 39.7 MCV 92.4 MCH 30.0 MCHC 32.5 RDW 14.0 Plt Count 86 L MPV 8.9 Absolute Neuts (auto) 1.9 Neutrophils % 46.2 Lymphocytes % 34.0 Monocytes % 15.4 H Eosinophils % 4.0 Basophils % 0.4 Nucleated RBC % 0 Sodium 141 Potassium 4.2 Chloride 103 Carbon Dioxide 33 H Anion Gap 5 L BUN 15.3 Creatinine 1.1 Est GFR (CKD-EPI)AfAm 83.53 Est GFR (CKD-EPI)NonAf 72.07 Random Glucose 95 Calcium 8.7 Magnesium 2.4 Total Bilirubin 0.5 AST 56 H ALT 22 Alkaline Phosphatase 79 Total Protein 7.7 Albumin 3.4 Active Medications Generic Name Dose Route Start Last Admin Trade Name Freq PRN Reason Stop Dose Admin Amlodipine Besylate 5 mg 12/03/19 10:00 12/03/19 09:34 Norvasc - PO 5 mg DAILY HAN Administration Docusate Sodium 100 mg 12/02/19 12:51 Colace - PO TID PRN CONSTIPATION Famotidine 20 mg 12/03/19 10:00 12/03/19 09:34 Pepcid - PO 20 mg DAILY HAN Administration Fentanyl 25 mcg 12/02/19 12:51 Sublimaze Injection - IVPUSH [id number] PRN PAIN-PACU ORDER X 4 DOSES ONLY Fentanyl 50 mcg 12/02/19 12:51 Sublimaze Injection - IVPUSH [id number] PRN PAIN-PACU ORDER X 4 DOSES ONLY Fluticasone Propionate 1 spray 12/03/19 10:00 12/03/19 09:41 Flonase - NS 1 spr DAILY HAN Administration Furosemide 20 mg 12/03/19 10:00 12/03/19 09:36 Lasix - PO 20 mg DAILY HAN Administration Ceftriaxone Sodium 2 gm/ 100 mls @ 200 mls/hr 12/03/19 10:00 12/03/19 09:33 Dextrose IVPB 200 mls/hr DAILY HAN Administration Protocol Clindamycin Phosphate 600 mg in 50 mls @ 100 mls/hr 12/02/19 18:00 12/03/19 09:34 Cleocin 600 Mg Premix Ivpb - IVPB 100 mls/hr Q8H-IV HAN Administration Protocol Sodium Chloride 1,000 mls @ 42 mls/hr 12/02/19 12:51 12/03/19 12:58 Normal Saline - IV Not Given ASDIR HAN Lactulose 20 gm 12/03/19 10:00 12/03/19 09:34 Cephulac (Oral Use) PO 20 gm DAILY HAN Administration Methadone HCl 40 mg/ Methadone 75 mg 12/03/19 06:00 12/03/19 05:54 HCl 30 mg/ Methadone HCl 5 mg PO 75 mg DAILY@0600 HAN Administration Ondansetron HCl 4 mg 12/02/19 12:51 Zofran Injection IVPUSH Q6H PRN NAUSEA AND/OR VOMITING Varenicline 0.5 mg 12/02/19 22:00 12/03/19 09:36 Chantix - PO 0.5 mg BID HAN Administration ASSESSMENT/PLAN: Problem List - Problems (1) Osteomyelitis of ankle or foot, left, acute Assessment/Plan: L foot xray with significant soft tissue swelling of L second toe w/o evidence of air. lower ext mri: soft tissue swelling of dorsal foot compatible with cellulits, osteomyelitis distal phalanx of 2nd toe on ceftriaxone/vanco on 12/02/2019: patient is s/p left 2nd digit symes amputation Code(s): M86.172 - OTHER ACUTE OSTEOMYELITIS, LEFT ANKLE AND FOOT (2) HIV (human immunodeficiency virus infection) Assessment/Plan: continue home meds Code(s): Z21 - ASYMPTOMATIC HUMAN IMMUNODEFICIENCY VIRUS INFECTION STATUS (3) Methadone maintenance therapy patient Assessment/Plan: on methadone maintenance. patient follows with pain specialist for back pain/hip pain also on percocets BID at home Code(s): F11.20 - OPIOID DEPENDENCE, UNCOMPLICATED (4) Obesity (BMI 30-39.9) Assessment/Plan: outpatient follow up Code(s): E66.9 - OBESITY, UNSPECIFIED (5) Leukopenia Assessment/Plan: similar to previous admission. monitor with daily labs Code(s): D72.819 - DECREASED WHITE BLOOD CELL COUNT, UNSPECIFIED (6) Thrombocytopenia Assessment/Plan: similar to previous admission. monitor with daily labs Code(s): D69.6 - THROMBOCYTOPENIA, UNSPECIFIED (7) DVT prophylaxis Assessment/Plan: lovenox 40mg daily Code(s): Z29.9 - ENCOUNTER FOR PROPHYLACTIC MEASURES, UNSPECIFIED Visit type - Emergency Visit Emergency Visit: Yes ED Registration Date: 11/27/19 Care time: The patient presented to the Emergency Department on the above date and was hospitalized for further evaluation of their emergent condition. - New Patient This patient is new to me today: No - Critical Care Critical Care patient: No - Discharge Referral Referred to [facility] No
--- NOTE | 2019-12-03 15:24 | PN ---
Progress Note (short form) - Note Progress Note: no complaints s/p amputation of distal portion of second toe yesterday Vital Signs Period Temp Pulse Resp BP Sys/Forman Pulse Ox Last 24 Hr 98 F-98.6 F 55-78 17-19 115-151/58-93 92-96 cor-rrr lungs clear dressing intact on foot CBC, BMP 12/03/19 06:35 12/03/19 06:35 Microbiology 12/02/19 11:40 Bone Gram Stain - Final 12/02/19 11:40 Bone Tissue Culture - Preliminary 11/27/19 11:30 Blood - Peripheral Venous Blood Culture - Final NO GROWTH AFTER 5 DAYS INCUBATION 11/27/19 11:30 Blood - Peripheral Venous Blood Culture - Final NO GROWTH AFTER 5 DAYS INCUBATION 11/28/19 13:00 Foot - Left Gram Stain - Final 11/28/19 13:00 Foot - Left Wound Culture - Final Staphylococcus Coagulase Neg Enterococcus Faecalis a/p s/p amputation of distal ortion second toe for osteo- preop culture with enterococcus, swtch to vanco/rocephin, f/u operative culture and pathology pen allergy well controlled HIV liver cirrhosis continue jigar for his HIV
--- NOTE | 2019-12-03 16:39 | PN ---
Progress Note (short form) - Note Progress Note: Podiatry F/U: Seen/evaluated at bedside NAD. Pain controlled. Denies F/V/N/C/SOB/CP. S/p left second digit partial amputation POD#1. Afebrile. BRYAN: L foot: pedal pulses palpable, TG wnl, CFT brisk to toes. Post-surgical dressing clean, dry, intact; no active bleeding, no bandage strikethrough. Sutures well coapted, no dehiscence noted. There is no purulence, no fluctuance, no streaking cellulitis, no signs of active infection. Minimal tenderness to palpation. OR Cx: pending Imp: 59 year old diabetic male s/p left second digit partial amputation POD#1 1. IV abx per infectious disease 2. DSD L foot 3. Partial WB L heel with surgical shoe 4. F/u operative cultures 5. Will follow Ebonie Kaiser DPM
[2019-12-03] MEDS: VANCOMYCIN HCL 1,250 MG in DEXTROSE 5%-WATER - 250 ML IVPB SCH (16:56)
[2019-12-04] MEDS: VANCOMYCIN HCL 1,250 MG in DEXTROSE 5%-WATER - 250 ML IVPB SCH (04:09)
[2019-12-04] MEDS ORDERED: METHADONE HCL 10 MG TABLET ONE (05:32)
[2019-12-04] MEDS ORDERED: METHADONE HCL 5 MG TABLET ONE (05:32)
[2019-12-04] MEDS ORDERED: METHADONE HCL 40 MG DISPERSABLE TABLET ONE (05:33)
[2019-12-04] MEDS: METHADONE 40 MG, METHADONE 30 MG, METHADONE 5 MG PO SCH (05:35)
[2019-12-04] MEDS ORDERED: PT OWN MED DRAWER 7, Y5N ONE ×2 (09:59→21:06)
[2019-12-04] MEDS ORDERED: DEXTROSE 5%-WATER 100 ML IVPB ONE (10:00)
[2019-12-04] MEDS: EMTRICITAB/RILPIVIRI/TENOF ALA (ODEFSEY) TABLET PO SCH (10:04)
[2019-12-04] MEDS: LACTULOSE 20 GM/30 ML UDC (FOR ORAL USE ONLY) PO SCH (10:04)
[2019-12-04] MEDS: VARENICLINE TARTRATE 0.5 MG TAB PO SCH ×2 (10:04→21:32)
[2019-12-04] MEDS: amLODIPine BESYLATE 5 MG TABLET (FP) PO SCH (10:04)
[2019-12-04] MEDS: FAMOTIDINE 20 MG TABLET PO SCH (10:04)
[2019-12-04] MEDS: FUROSEMIDE 20 MG TABLET (FP) PO SCH (10:05)
[2019-12-04] MEDS: FLUTICASONE PROP 0.05% 16 GM NASAL SPRAY NS SCH (10:05)
[2019-12-04] MEDS: oxyCODONE HCL 5 MG TABLET PO PRN ×2 (10:05→21:32)
[2019-12-04] MEDS: CEFTRIAXONE 2 GM in DEXTROSE 5%-WATER 100 ML IVPB SCH (10:09)
--- NOTE | 2019-12-04 11:17 | PN ---
Progress Note (short form) - Note Progress Note: no complaints s/p amputation of distal portion of second toe pod #2 Vital Signs Period Temp Pulse Resp BP Sys/Forman Pulse Ox Last 24 Hr 97.7 F-99.2 F 56-83 18-19 106-143/53-107 93-98 cor-rrr lungs clear abd soft,nt ext foot bandaged CBC, BMP 12/04/19 06:00 12/04/19 06:00 Microbiology 12/02/19 11:40 Bone Gram Stain - Final 12/02/19 11:40 Bone Tissue Culture - Preliminary Group D Strep Or Entero Coccus Staphylococcus Coagulase Neg Diphtheroid/Corynebacterium 11/27/19 11:30 Blood - Peripheral Venous Blood Culture - Final NO GROWTH AFTER 5 DAYS INCUBATION 11/27/19 11:30 Blood - Peripheral Venous Blood Culture - Final NO GROWTH AFTER 5 DAYS INCUBATION 11/28/19 13:00 Foot - Left Gram Stain - Final 11/28/19 13:00 Foot - Left Wound Culture - Final Staphylococcus Coagulase Neg Enterococcus Faecalis a/p s/p amputation of distal portion second toe for osteo- operative culture with enterococcus, started on vanco given pen allergy- will continue pending pathology report pen allergy f/u esr crp well controlled HIV liver cirrhosis continue danielsey for his HIV
--- NOTE | 2019-12-04 12:48 | PN ---
Progress Note (short form) - Note Progress Note: cc: toe osteo s: no chest pain, palps dizziness, dyspnea Current Medications Generic Name Dose Route Start Last Admin Trade Name Freq PRN Reason Stop Dose Admin Amlodipine Besylate 5 mg 12/03/19 10:00 12/04/19 10:04 Norvasc - PO 5 mg DAILY HAN Administration Docusate Sodium 100 mg 12/02/19 12:51 Colace - PO TID PRN CONSTIPATION Famotidine 20 mg 12/03/19 10:00 12/04/19 10:04 Pepcid - PO 20 mg DAILY HAN Administration Fentanyl 25 mcg 12/02/19 12:51 Sublimaze Injection - IVPUSH [id number] PRN PAIN-PACU ORDER X 4 DOSES ONLY Fluticasone Propionate 1 spray 12/03/19 10:00 12/04/19 10:05 Flonase - NS 1 spr DAILY HAN Administration Furosemide 20 mg 12/03/19 10:00 12/04/19 10:05 Lasix - PO 20 mg DAILY HAN Administration Sodium Chloride 1,000 mls @ 42 mls/hr 12/02/19 12:51 12/03/19 12:58 Normal Saline - IV Not Given ASDIR HAN Lactulose 20 gm 12/03/19 10:00 12/04/19 10:04 Cephulac (Oral Use) PO 20 gm DAILY HAN Administration Methadone HCl 40 mg/ Methadone 75 mg 12/03/19 06:00 12/04/19 05:35 HCl 30 mg/ Methadone HCl 5 mg PO 75 mg DAILY@0600 HAN Administration Ondansetron HCl 4 mg 12/02/19 12:51 Zofran Injection IVPUSH Q6H PRN NAUSEA AND/OR VOMITING Oxycodone HCl 10 mg 12/03/19 13:54 12/04/19 10:05 Roxicodone - PO 10 mg Q8H PRN Administration PAIN LEVEL 7 - 10 Varenicline 0.5 mg 12/02/19 22:00 12/04/19 10:04 Chantix - PO 0.5 mg BID HAN Administration Vital Signs Period Temp Pulse Resp BP Sys/Forman Pulse Ox Last 24 Hr 97.7 F-99.2 F 56-83 18-19 106-143/53-107 93-98 nad no jvd rrr s1s2 no mrg cta bl nl eff aao3 no le e/c/c abd nt nd pos bs no jaundice diaphoresis pos dp pt no carotid bruits ecg 11/27/19, 12/02/19: sr 50s,60s, 1stavb, nonspec tw changes, no st changes echo 11/2017: no sig abnormalities mibi 11/2017: no ischemia cxr: no sig chf tele: sr, 1stavb, rare non conducted p waves, no sig pauses, no pathologic bradycardia a/p: 59 m hx hiv, htn, 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 abnl ecg, bradycardia: -ecgs, tele reviewed. 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 After surgery tele showed same 1st avb but also sinus mert and occasional non conducted p waves. These are benign and most likely related to sedation used in periop setting - HR stable. No need for further cardiac testing or tele at this time. htn: -cont norvasc toe osteo: -s/p surgery -abx per ID
--- NOTE | 2019-12-04 13:31 | PN ---
Physical Exam: SUBJECTIVE: Patient seen and examined at the bedside. denies discomfort, pain is controlled. OBJECTIVE: Patient is a 59 year old male with a significant past medical history of HIV (per chart review, CD4 count of 617 on 11/06/18), HTN, depression, heroin abuse (on methadone), osteomyelitis, anxiety, sciatica (on percocets), HCV who presents in the ED for worsening L 2nd toe pain/swelling sent by his podiatry (Dr. Reed). States he started noticing a callus on his two 3 weeks ago, but denies injury to the area. This past Monday, he started noticing swelling on the same toe, and then on Monday noticed swelling of his L foot. Says he only has been soaking his foot in water to alleviate the swelling. Denies fever, chills, nausea/vomiting, barone/d, chest pain, sob, abd pain, urinary/bowel symptoms. He follows up with his director on air as an outpatient on a regular basis and takes all his meds as prescribed. imaging: lower ext mri: soft tissue swelling of dorsal foot compatible with cellulits, osteomyelitis distal phalanx of 2nd toe on 12/02/2019: patient is s/p left 2nd digit symes amputation Vital Signs Period Temp Pulse Resp BP Sys/Forman Pulse Ox Last 24 Hr 97.7 F-99.2 F 56-83 18-19 106-143/53-107 93-98 GENERAL: The patient is awake, alert, and fully oriented, in no acute distress. HEAD: Normal with no signs of trauma. EYES: PERRL, extraocular movements intact, sclera anicteric, conjunctiva clear. No ptosis. ENT: Ears normal, nares patent, oropharynx clear without exudates, moist mucous membranes. NECK: Trachea midline, full range of motion, supple. LUNGS: Breath sounds equal, clear to auscultation bilaterally, no wheezes, no crackles, no accessory muscle use. HEART: Regular rate and rhythm ABDOMEN: Soft, nontender, nondistended, normoactive bowel sounds, no guarding, no rebound, no hepatosplenomegaly, no masses. EXTREMITIES: LLE swelling. dressing c/d/i. toes not viewed by me. left arm edema. for doppler. NEUROLOGICAL: Normal speech, gait not observed. PSYCH: Normal mood, normal affect. SKIN: Warm, dry, normal turgor, no rashes or lesions noted Laboratory Results - last 24 hr 12/04/19 12/04/19 06:00 06:00 WBC Cancelled Corrected WBC (auto) Cancelled RBC Cancelled Hgb Cancelled Hct Cancelled MCV Cancelled MCH Cancelled MCHC Cancelled RDW Cancelled Plt Count Cancelled MPV Cancelled Absolute Neuts (auto) Cancelled Total Counted Cancelled Neutrophils % Cancelled Neutrophils % (Manual) Cancelled Band Neutrophils % Cancelled Lymphocytes % Cancelled Lymphocytes % (Manual) Cancelled Monocytes % Cancelled Monocytes % (Manual) Cancelled Eosinophils % Cancelled Eosinophils % (Manual) Cancelled Basophils % Cancelled Basophils % (Manual) Cancelled Myelocytes % (Man) Cancelled Promyelocytes % (Man) Cancelled Blast Cells % (Manual) Cancelled Nucleated RBC % Cancelled Metamyelocytes Cancelled Differential Comment Cancelled Hypersegmented Neuts Cancelled Plasma Cells Cancelled Smudge Cells Cancelled Other Cell Type Cancelled Hypochromia Cancelled Toxic Granulation Cancelled Dohle Bodies Cancelled Jyotsna Rods Cancelled Platelet Estimate Cancelled Platelet Comment Cancelled Polychromasia Cancelled Poikilocytosis Cancelled Basophilic Stippling Cancelled Anisocytosis Cancelled Microcytosis Cancelled Macrocytosis Cancelled Spherocytes Cancelled Siderocytes Cancelled Sickle Cells Cancelled Target Cells Cancelled Tear Drop Cells Cancelled Ovalocytes Cancelled Stomatocytes Cancelled Helmet Cells Cancelled [place] Bodies Cancelled [place] Rings Cancelled Sae Cells Cancelled Acanthocytes (Spur) Cancelled Rouleaux Cancelled Fragmented RBCs Cancelled Schistocytes Cancelled Sodium Cancelled Potassium Cancelled Chloride Cancelled Carbon Dioxide Cancelled Anion Gap Cancelled BUN Cancelled Creatinine Cancelled Est GFR (CKD-EPI)AfAm Cancelled Est GFR (CKD-EPI)NonAf Cancelled Random Glucose Cancelled Calcium Cancelled Magnesium Cancelled Iron Cancelled TIBC Cancelled Iron Saturation Cancelled Unsaturated IBC Cancelled Total Bilirubin Cancelled AST Cancelled ALT Cancelled Alkaline Phosphatase Cancelled Total Protein Cancelled Albumin Cancelled Active Medications Generic Name Dose Route Start Last Admin Trade Name Freq PRN Reason Stop Dose Admin Amlodipine Besylate 5 mg 12/03/19 10:00 12/04/19 10:04 Norvasc - PO 5 mg DAILY HAN Administration Docusate Sodium 100 mg 12/02/19 12:51 Colace - PO TID PRN CONSTIPATION Famotidine 20 mg 12/03/19 10:00 12/04/19 10:04 Pepcid - PO 20 mg DAILY HAN Administration Fentanyl 25 mcg 12/02/19 12:51 Sublimaze Injection - IVPUSH [id number] PRN PAIN-PACU ORDER X 4 DOSES ONLY Fluticasone Propionate 1 spray 12/03/19 10:00 12/04/19 10:05 Flonase - NS 1 spr DAILY HAN Administration Furosemide 20 mg 12/03/19 10:00 12/04/19 10:05 Lasix - PO 20 mg DAILY HAN Administration Sodium Chloride 1,000 mls @ 42 mls/hr 12/02/19 12:51 12/03/19 12:58 Normal Saline - IV Not Given ASDIR HAN Lactulose 20 gm 12/03/19 10:00 12/04/19 10:04 Cephulac (Oral Use) PO 20 gm DAILY HAN Administration Methadone HCl 40 mg/ Methadone 75 mg 12/03/19 06:00 12/04/19 05:35 HCl 30 mg/ Methadone HCl 5 mg PO 75 mg DAILY@0600 HAN Administration Ondansetron HCl 4 mg 12/02/19 12:51 Zofran Injection IVPUSH Q6H PRN NAUSEA AND/OR VOMITING Oxycodone HCl 10 mg 12/03/19 13:54 12/04/19 10:05 Roxicodone - PO 10 mg Q8H PRN Administration PAIN LEVEL 7 - 10 Varenicline 0.5 mg 12/02/19 22:00 12/04/19 10:04 Chantix - PO 0.5 mg BID HAN Administration ASSESSMENT/PLAN: Problem List - Problems (1) Osteomyelitis of ankle or foot, left, acute Assessment/Plan: L foot xray with significant soft tissue swelling of L second toe w/o evidence of air. lower ext mri: soft tissue swelling of dorsal foot compatible with cellulits, osteomyelitis distal phalanx of 2nd toe on vanco on 12/02/2019: patient is s/p left 2nd digit symes amputation Code(s): M86.172 - OTHER ACUTE OSTEOMYELITIS, LEFT ANKLE AND FOOT (2) HIV (human immunodeficiency virus infection) Assessment/Plan: continue home meds Code(s): Z21 - ASYMPTOMATIC HUMAN IMMUNODEFICIENCY VIRUS INFECTION STATUS (3) Methadone maintenance therapy patient Assessment/Plan: on methadone maintenance. patient follows with pain specialist for back pain/hip pain also on percocets BID at home Code(s): F11.20 - OPIOID DEPENDENCE, UNCOMPLICATED (4) Obesity (BMI 30-39.9) Assessment/Plan: outpatient follow up Code(s): E66.9 - OBESITY, UNSPECIFIED (5) Leukopenia Assessment/Plan: similar to previous admission. monitor with daily labs Code(s): D72.819 - DECREASED WHITE BLOOD CELL COUNT, UNSPECIFIED (6) Thrombocytopenia Assessment/Plan: similar to previous admission. monitor with daily labs Code(s): D69.6 - THROMBOCYTOPENIA, UNSPECIFIED (7) DVT prophylaxis Assessment/Plan: lovenox 40mg daily Code(s): Z29.9 - ENCOUNTER FOR PROPHYLACTIC MEASURES, UNSPECIFIED Visit type - Emergency Visit Emergency Visit: Yes ED Registration Date: 11/27/19 Care time: The patient presented to the Emergency Department on the above date and was hospitalized for further evaluation of their emergent condition. - New Patient This patient is new to me today: No - Critical Care Critical Care patient: No - Discharge Referral Referred to [facility] No
[2019-12-04 15:32] LABS: HEMATOCRIT 39.7 % (35.4-49); HEMOGLOBIN 13.1 GM/dL (11.7-16.9); MCH 30.6 pg (25.7-33.7); MCHC 32.9 g/dl (32.0-35.9); MEAN CELL VOLUME 92.8 fl (80-96); MEAN PLT VOLUME 9.3 fl (7.5-11.1); PLATELET COUNT 97 K/MM3 (134-434); RBC 4.27 M/mm3 (4.00-5.60); RDW 14.2 % (11.9-15.9); WHITE BLOOD COUNT 4.6 K/mm3 (4.0-10.0)
[2019-12-04] MEDS: VANCOMYCIN 1,250 MG in DEXTROSE 5%-WATER - 250 ML IVPB SCH (15:54)
[2019-12-04] MEDS: ENOXAPARIN NA (PORCINE) 40 MG/0.4 ML DISP.SYRIN SQ SCH (17:37)
[2019-12-04] MEDS ORDERED: ERGOCALCIFEROL (VIT D2) 50,000 UNIT (1.25 MG) CAPSULE PO SCH (18:00)
[2019-12-05] MEDS: VANCOMYCIN 1,250 MG in DEXTROSE 5%-WATER - 250 ML IVPB SCH ×2 (05:00→14:59)
[2019-12-05] MEDS ORDERED: METHADONE HCL 5 MG TABLET ONE (05:03)
[2019-12-05] MEDS ORDERED: METHADONE HCL 40 MG DISPERSABLE TABLET ONE (05:04)
[2019-12-05] MEDS ORDERED: PT OWN MED DRAWER 7, Y5N ONE ×2 (05:04→20:46)
[2019-12-05] MEDS ORDERED: METHADONE HCL 10 MG TABLET ONE (05:04)
[2019-12-05] MEDS: METHADONE 40 MG, METHADONE 30 MG, METHADONE 5 MG PO SCH (05:11)
[2019-12-05] MEDS: SODIUM CHLORIDE 1,000 ML IV SCH (06:39)
[2019-12-05 07:59] LABS: BASO % 0.6 % (0-2.0); EOS % 4.1 % (0-4.5); HEMATOCRIT 38.5 % (35.4-49); HEMOGLOBIN 12.7 GM/dL (11.7-16.9); LYMPH % 37.3 % (8-40); MCH 30.7 pg (25.7-33.7); MCHC 33.1 g/dl (32.0-35.9); MEAN CELL VOLUME 92.8 fl (80-96); MEAN PLT VOLUME 9.4 fl (7.5-11.1); MONO % 12.8 % (3.8-10.2); NEUT % 45.2 % (42.8-82.8); PLATELET COUNT 87 K/MM3 (134-434); RBC 4.15 M/mm3 (4.00-5.60); RDW 13.9 % (11.9-15.9); WHITE BLOOD COUNT 3.8 K/mm3 (4.0-10.0)
[2019-12-05 08:23] LABS: ALBUMIN 3.3 g/dl (3.4-5.0); BILIRUBIN,TOTAL 0.8 mg/dL (0.2-1); BLOOD UREA NITROGEN 16.3 mg/dL (7-18); CALCIUM 8.8 mg/dL (8.5-10.1); MAGNESIUM 2.5 mg/dL (1.8-2.4); POTASSIUM 3.7 mmol/L (3.5-5.1); TOT PROT 7.6 g/dl (6.4-8.2)
[2019-12-05] MEDS: amLODIPine BESYLATE 5 MG TABLET (FP) PO SCH (09:10)
[2019-12-05] MEDS: DOCUSATE SODIUM 100 MG CAPSULE (FP) PO PRN (09:10)
[2019-12-05] MEDS: LACTULOSE 20 GM/30 ML UDC (FOR ORAL USE ONLY) PO SCH (09:10)
[2019-12-05] MEDS: VARENICLINE TARTRATE 0.5 MG TAB PO SCH ×2 (09:11→21:09)
[2019-12-05] MEDS: FAMOTIDINE 20 MG TABLET PO SCH (09:11)
[2019-12-05] MEDS: EMTRICITAB/RILPIVIRI/TENOF ALA (ODEFSEY) TABLET PO SCH (09:11)
[2019-12-05] MEDS: FUROSEMIDE 20 MG TABLET (FP) PO SCH (09:12)
[2019-12-05] MEDS: FLUTICASONE PROP 0.05% 16 GM NASAL SPRAY NS SCH (09:12)
[2019-12-05] MEDS: ENOXAPARIN NA (PORCINE) 40 MG/0.4 ML DISP.SYRIN SQ SCH (09:13)
--- NOTE | 2019-12-05 11:26 | PN ---
Progress Note (short form) - Note Progress Note: cc: toe osteo s: no chest pain, palps dizziness, dyspnea Current Medications Generic Name Dose Route Start Last Admin Trade Name Freq PRN Reason Stop Dose Admin Amlodipine Besylate 5 mg 12/03/19 10:00 12/05/19 09:10 Norvasc - PO 5 mg DAILY HAN Administration Docusate Sodium 100 mg 12/02/19 12:51 12/05/19 09:10 Colace - PO 100 mg TID PRN Administration CONSTIPATION Enoxaparin Sodium 40 mg 12/04/19 17:00 12/05/19 09:13 Lovenox - SQ 40 mg DAILY HAN Administration Ergocalciferol 50,000 unit 12/04/19 18:00 12/04/19 17:42 Drisdol - PO 50,000 unit We@1800 HAN Administration Famotidine 20 mg 12/03/19 10:00 12/05/19 09:11 Pepcid - PO 20 mg DAILY HAN Administration Fentanyl 25 mcg 12/02/19 12:51 Sublimaze Injection - IVPUSH [id number] PRN PAIN-PACU ORDER X 4 DOSES ONLY Fluticasone Propionate 1 spray 12/03/19 10:00 12/05/19 09:12 Flonase - NS 1 spr DAILY HAN Administration Furosemide 20 mg 12/03/19 10:00 12/05/19 09:12 Lasix - PO 20 mg DAILY HAN Administration Vancomycin HCl 1,250 mg/ 250 mls @ 166.667 mls/hr 12/04/19 16:00 12/05/19 05:00 Dextrose IVPB 166.667 mls/hr Q12H HAN Administration Protocol Lactulose 20 gm 12/03/19 10:00 12/05/19 09:10 Cephulac (Oral Use) PO 20 gm DAILY HAN Administration Methadone HCl 40 mg/ Methadone 75 mg 12/03/19 06:00 12/05/19 05:11 HCl 30 mg/ Methadone HCl 5 mg PO 75 mg DAILY@0600 HAN Administration Ondansetron HCl 4 mg 12/02/19 12:51 Zofran Injection IVPUSH Q6H PRN NAUSEA AND/OR VOMITING Oxycodone HCl 10 mg 12/03/19 13:54 12/04/19 21:32 Roxicodone - PO 10 mg Q8H PRN Administration PAIN LEVEL 7 - 10 Varenicline 0.5 mg 12/02/19 22:00 12/05/19 09:11 Chantix - PO 0.5 mg BID HAN Administration Vital Signs Period Temp Pulse Resp BP Sys/Forman Pulse Ox Last 24 Hr 97.8 F-98.9 F 57-85 18-20 133-157/74-96 92-95 nad no jvd rrr s1s2 no mrg cta bl nl eff aao3 no le e/c/c abd nt nd pos bs no jaundice diaphoresis CBC, BMP 12/05/19 06:35 12/05/19 06:35 ecg 11/27/19, 12/02/19: sr 50s,60s, 1stavb, nonspec tw changes, no st changes echo 11/2017: no sig abnormalities mibi 11/2017: no ischemia cxr: no sig chf a/p: 59 m hx hiv, htn, 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 abnl ecg, bradycardia: -ecgs, tele reviewed. 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 After surgery tele showed same 1st avb but also sinus mert and occasional non conducted p waves. These are benign and most likely related to sedation used in periop setting - HR stable. No need for further cardiac testing or tele at this time. htn: -cont norvasc toe osteo: -s/p surgery -abx per ID
--- NOTE | 2019-12-05 11:29 | PATH ---
Surgical Pathology Report Patient Name: APURVA HERRMANN Med. Rec. #: [id number] /Age/Gender: 1960 (Age: 59) / M Account: [id number] Location: [facility] MED/SURG Taken: 12/02/2019 Received: 12/02/2019 Reported: 12/05/2019 Physicians: Luis Rivas, ZACKARY Machado Specimen(s) Received A: PROXIMAL MARGIN LEFT FOOT SECOND DIGIT B: LEFT FOOT SECOND DIGIT Clinical History Osteomyelitis of left foot second digit Final Diagnosis A. PROXIMAL MARGIN, FOOT, LEFT, SECOND DIGIT, EXCISION: BONE WITH FATTY MARROW. NO OSTEOMYELITIS IDENTIFIED. B. FOOT, LEFT, SECOND DIGIT, AMPUTATION: DIGIT WITH MODERATE ACUTE AND CHRONIC INFLAMMATION, SUPERFICIAL ABSCESS FORMATION, AND REACTIVE CHANGES. UNDERLYING BONE WITH MODERATE ACUTE AND CHRONIC OSTEOMYELITIS. SURGICAL MARGINS ARE VIABLE. Electronically Signed Nevaeh Junior M.D. Gross Description A. Received in formalin labeled "proximal margin left foot second digit," is a 0.7 x 0.6 x 0.5 cm damon-yellow portion of bone. The specimen is bisected and entirely submitted in one cassette, following decalcification. B. Received in formalin labeled "left foot second digit," is a 3.7 x 2.8 x 2.5 cm toe amputation. The epidermal surface displays a 0.8 x 0.6 cm ulcerated lesion at 1.3 cm from the skin and soft tissue margin. System Developer Associate Manager sections are submitted in 3 cassettes as follows: 1-lesion with underlying bone, following decalcification; 2-bone margin, following decalcification; 3-skin and soft tissue margin. /12/03/2019 [facility]
[2019-12-05] MEDS: oxyCODONE HCL 5 MG TABLET PO PRN ×2 (11:44→21:11)
[2019-12-05 12:37] VITALS: BMI 32.5
--- NOTE | 2019-12-05 13:58 | PN ---
Progress Note (short form) - Note Progress Note: no complaints s/p amputation of distal portion of second toe pod #3 day #3 vancomycin Vital Signs Period Temp Pulse Resp BP Sys/Forman Pulse Ox Last 24 Hr 97.8 F-98.9 F 57-85 18-20 133-157/74-96 92-95 cor-rrr lungs clear abd soft,nt ext no drainage from toe, sutures intact CBC, BMP 12/05/19 06:35 12/05/19 06:35 Microbiology 12/02/19 11:40 Bone Gram Stain - Final 12/02/19 11:40 Bone Tissue Culture - Final Enterococcus Faecalis Staphylococcus Lugdunensis Diphtheroid/Corynebacterium 12/02/19 11:40 Bone Anaerobic Culture - Final NO ANAEROBES WERE ISOLATED 11/27/19 11:30 Blood - Peripheral Venous Blood Culture - Final NO GROWTH AFTER 5 DAYS INCUBATION 11/27/19 11:30 Blood - Peripheral Venous Blood Culture - Final NO GROWTH AFTER 5 DAYS INCUBATION 11/28/19 13:00 Foot - Left Gram Stain - Final 11/28/19 13:00 Foot - Left Wound Culture - Final Staphylococcus Coagulase Neg Enterococcus Faecalis pathology- proximal margin no osteomyelitis a/p s/p amputation of distal portion second toe for osteo- operative culture with enterococcus, would continue vancomycin for total 5 to 7 days given pen allergy day #3 vancomycin today well controlled HIV liver cirrhosis continue odgenasey for his HIV
--- NOTE | 2019-12-05 17:26 | PN ---
Physical Exam: SUBJECTIVE: Patient seen and examined. denies pain OBJECTIVE: Patient is a 59 year old male with a significant past medical history of HIV (per chart review, CD4 count of 617 on 11/06/18), HTN, depression, heroin abuse (on methadone), osteomyelitis, anxiety, sciatica (on percocets), HCV who presents in the ED for worsening L 2nd toe pain/swelling sent by his podiatry (Dr. Reed). imaging: lower ext mri: soft tissue swelling of dorsal foot compatible with cellulits, osteomyelitis distal phalanx of 2nd toe on 12/02/2019: patient is s/p left 2nd digit amputation Vital Signs Period Temp Pulse Resp BP Sys/Forman Pulse Ox Last 24 Hr 97.8 F-98.7 F 57-79 18-20 133-157/74-96 92-95 GENERAL: The patient is awake, alert, and fully oriented, in no acute distress. HEAD: Normal with no signs of trauma. EYES: PERRL, extraocular movements intact, sclera anicteric, conjunctiva clear. No ptosis. ENT: Ears normal, nares patent, oropharynx clear without exudates, moist mucous membranes. NECK: Trachea midline, full range of motion, supple. LUNGS: Breath sounds equal, clear to auscultation bilaterally, no wheezes, no crackles, no accessory muscle use. HEART: Regular rate and rhythm ABDOMEN: Soft, nontender, nondistended, normoactive bowel sounds, no guarding, no rebound, no hepatosplenomegaly, no masses. EXTREMITIES: LLE swelling. dressing c/d/i. toes not viewed by me. left arm edema. for doppler. NEUROLOGICAL: Normal speech, gait not observed. PSYCH: Normal mood, normal affect. SKIN: Warm, dry, normal turgor, no rashes or lesions noted Laboratory Results - last 24 hr 12/05/19 12/05/19 12/05/19 06:35 06:35 06:35 WBC 3.8 L RBC 4.15 Hgb 12.7 Hct 38.5 MCV 92.8 MCH 30.7 MCHC 33.1 RDW 13.9 Plt Count 87 L MPV 9.4 Absolute Neuts (auto) 1.7 Neutrophils % 45.2 Lymphocytes % 37.3 Monocytes % 12.8 H Eosinophils % 4.1 Basophils % 0.6 Nucleated RBC % 0 Sodium 138 Potassium 3.7 Chloride 104 Carbon Dioxide 30 Anion Gap 4 L BUN 16.3 Creatinine 1.0 Est GFR (CKD-EPI)AfAm 93.73 Est GFR (CKD-EPI)NonAf 80.87 Random Glucose 91 Calcium 8.8 Magnesium 2.5 H Total Bilirubin 0.8 AST 57 H ALT 21 Alkaline Phosphatase 77 Total Protein 7.6 Albumin 3.3 L Stool Occult Blood Random Vancomycin 38.0 H* 12/05/19 14:30 WBC RBC Hgb Hct MCV MCH MCHC RDW Plt Count MPV Absolute Neuts (auto) Neutrophils % Lymphocytes % Monocytes % Eosinophils % Basophils % Nucleated RBC % Sodium Potassium Chloride Carbon Dioxide Anion Gap BUN Creatinine Est GFR (CKD-EPI)AfAm Est GFR (CKD-EPI)NonAf Random Glucose Calcium Magnesium Total Bilirubin AST ALT Alkaline Phosphatase Total Protein Albumin Stool Occult Blood Negative Random Vancomycin Active Medications Generic Name Dose Route Start Last Admin Trade Name Freq PRN Reason Stop Dose Admin Amlodipine Besylate 5 mg 12/03/19 10:00 12/05/19 09:10 Norvasc - PO 5 mg DAILY HAN Administration Docusate Sodium 100 mg 12/02/19 12:51 12/05/19 09:10 Colace - PO 100 mg TID PRN Administration CONSTIPATION Enoxaparin Sodium 40 mg 12/04/19 17:00 12/05/19 09:13 Lovenox - SQ 40 mg DAILY HAN Administration Ergocalciferol 50,000 unit 12/04/19 18:00 12/04/19 17:42 Drisdol - PO 50,000 unit We@1800 [facility]AN Administration Famotidine 20 mg 12/03/19 10:00 12/05/19 09:11 Pepcid - PO 20 mg DAILY HAN Administration Fentanyl 25 mcg 12/02/19 12:51 Sublimaze Injection - IVPUSH [id number] PRN PAIN-PACU ORDER X 4 DOSES ONLY Fluticasone Propionate 1 spray 12/03/19 10:00 12/05/19 09:12 Flonase - NS 1 spr DAILY HAN Administration Furosemide 20 mg 12/03/19 10:00 12/05/19 09:12 Lasix - PO 20 mg DAILY HAN Administration Vancomycin HCl 1,250 mg/ 250 mls @ 166.667 mls/hr 12/04/19 16:00 12/05/19 14:59 Dextrose IVPB 166.667 mls/hr Q12H HAN Administration Protocol Lactulose 20 gm 12/03/19 10:00 12/05/19 09:10 Cephulac (Oral Use) PO 20 gm DAILY HAN Administration Methadone HCl 40 mg/ Methadone 75 mg 12/03/19 06:00 12/05/19 05:11 HCl 30 mg/ Methadone HCl 5 mg PO 75 mg DAILY@0600 [facility]AN Administration Ondansetron HCl 4 mg 12/02/19 12:51 Zofran Injection IVPUSH Q6H PRN NAUSEA AND/OR VOMITING Oxycodone HCl 10 mg 12/03/19 13:54 12/05/19 11:44 Roxicodone - PO 10 mg Q8H PRN Administration PAIN LEVEL 7 - 10 Varenicline 0.5 mg 12/02/19 22:00 12/05/19 09:11 Chantix - PO 0.5 mg BID HAN Administration ASSESSMENT/PLAN: Problem List - Problems (1) Osteomyelitis of ankle or foot, left, acute Assessment/Plan: L foot xray with significant soft tissue swelling of L second toe w/o evidence of air. lower ext mri: soft tissue swelling of dorsal foot compatible with cellulits, osteomyelitis distal phalanx of 2nd toe on vanco on 12/02/2019: patient is s/p left 2nd digit symes amputation Code(s): M86.172 - OTHER ACUTE OSTEOMYELITIS, LEFT ANKLE AND FOOT (2) HIV (human immunodeficiency virus infection) Assessment/Plan: continue home meds Code(s): Z21 - ASYMPTOMATIC HUMAN IMMUNODEFICIENCY VIRUS INFECTION STATUS (3) Methadone maintenance therapy patient Assessment/Plan: on methadone maintenance. patient follows with pain specialist for back pain/hip pain also on percocets BID at home (ISTOP reviewed) Code(s): F11.20 - OPIOID DEPENDENCE, UNCOMPLICATED (4) Obesity (BMI 30-39.9) Assessment/Plan: outpatient follow up Code(s): E66.9 - OBESITY, UNSPECIFIED (5) Leukopenia Assessment/Plan: similar to previous admission. monitor with daily labs Code(s): D72.819 - DECREASED WHITE BLOOD CELL COUNT, UNSPECIFIED (6) Thrombocytopenia Assessment/Plan: similar to previous admission. monitor with daily labs Code(s): D69.6 - THROMBOCYTOPENIA, UNSPECIFIED (7) DVT prophylaxis Assessment/Plan: elianenox 40mg daily Code(s): Z29.9 - ENCOUNTER FOR PROPHYLACTIC MEASURES, UNSPECIFIED Visit type - Emergency Visit Emergency Visit: Yes ED Registration Date: 11/27/19 Care time: The patient presented to the Emergency Department on the above date and was hospitalized for further evaluation of their emergent condition. - New Patient This patient is new to me today: No - Critical Care Critical Care patient: No - Discharge Referral Referred to [facility] Med P.C.: No
[2019-12-06] MEDS ORDERED: PT OWN MED DRAWER 7, Y5N ONE ×2 (01:04→20:47)
[2019-12-06] MEDS: VANCOMYCIN 1,250 MG in DEXTROSE 5%-WATER - 250 ML IVPB SCH (03:17)
[2019-12-06] MEDS ORDERED: METHADONE HCL 5 MG TABLET ONE (04:44)
[2019-12-06] MEDS ORDERED: METHADONE HCL 40 MG DISPERSABLE TABLET ONE (04:45)
[2019-12-06] MEDS ORDERED: METHADONE HCL 10 MG TABLET ONE (04:45)
[2019-12-06] MEDS: METHADONE 40 MG, METHADONE 30 MG, METHADONE 5 MG PO SCH (05:01)
[2019-12-06 07:07] LABS: BASO % 0.9 % (0-2.0); EOS % 3.3 % (0-4.5); HEMATOCRIT 40.7 % (35.4-49); HEMOGLOBIN 13.2 GM/dL (11.7-16.9); LYMPH % 47.2 % (8-40); MCH 29.8 pg (25.7-33.7); MCHC 32.3 g/dl (32.0-35.9); MEAN CELL VOLUME 92.2 fl (80-96); MEAN PLT VOLUME 8.6 fl (7.5-11.1); NEUT % 37.6 % (42.8-82.8); PLATELET COUNT 112 K/MM3 (134-434); RBC 4.41 M/mm3 (4.00-5.60); RDW 13.8 % (11.9-15.9); WHITE BLOOD COUNT 5.3 K/mm3 (4.0-10.0)
[2019-12-06 07:34] LABS: ALBUMIN 3.7 g/dl (3.4-5.0); BILIRUBIN,TOTAL 0.5 mg/dL (0.2-1); BLOOD UREA NITROGEN 14.8 mg/dL (7-18); CALCIUM 8.9 mg/dL (8.5-10.1); CREATININE 1.1 mg/dL (0.55-1.3); MAGNESIUM 2.3 mg/dL (1.8-2.4); POTASSIUM 3.6 mmol/L (3.5-5.1); TOT PROT 8.4 g/dl (6.4-8.2)
[2019-12-06] MEDS: LACTULOSE 20 GM/30 ML UDC (FOR ORAL USE ONLY) PO SCH (09:11)
[2019-12-06] MEDS: amLODIPine BESYLATE 5 MG TABLET (FP) PO SCH (09:11)
[2019-12-06] MEDS: EMTRICITAB/RILPIVIRI/TENOF ALA (ODEFSEY) TABLET PO SCH (09:12)
[2019-12-06] MEDS: FAMOTIDINE 20 MG TABLET PO SCH (09:12)
[2019-12-06] MEDS: VARENICLINE TARTRATE 0.5 MG TAB PO SCH ×2 (09:12→21:02)
[2019-12-06] MEDS: ENOXAPARIN NA (PORCINE) 40 MG/0.4 ML DISP.SYRIN SQ SCH (09:13)
[2019-12-06] MEDS: FUROSEMIDE 20 MG TABLET (FP) PO SCH (09:13)
[2019-12-06] MEDS: FLUTICASONE PROP 0.05% 16 GM NASAL SPRAY NS SCH (09:15)
--- NOTE | 2019-12-06 09:57 | PN ---
Progress Note, Physician Chief Complaint: denies CP/SOB/palps History of Present Illness: Osteo Methadone maintenance - Current Medication List Current Medications: Active Medications Amlodipine Besylate (Norvasc -) 5 mg PO DAILY [facility] Last Admin: 12/06/19 09:11 Dose: 5 mg Documented by: Docusate Sodium (Colace -) 100 mg PO TID PRN PRN Reason: CONSTIPATION Last Admin: 12/05/19 09:10 Dose: 100 mg Documented by: Enoxaparin Sodium (Lovenox -) 40 mg SQ DAILY [facility] Last Admin: 12/06/19 09:13 Dose: 40 mg Documented by: Ergocalciferol (Drisdol -) 50,000 unit PO We@1800 [facility] Last Admin: 12/04/19 17:42 Dose: 50,000 unit Documented by: Famotidine (Pepcid -) 20 mg PO DAILY [facility] Last Admin: 12/06/19 09:12 Dose: 20 mg Documented by: Fentanyl (Sublimaze Injection -) 25 mcg IVPUSH [id number] PRN PRN Reason: PAIN-PACU ORDER X 4 DOSES ONLY Fluticasone Propionate (Flonase -) 1 spray NS DAILY [facility] Last Admin: 12/06/19 09:15 Dose: 1 spr Documented by: Furosemide (Lasix -) 20 mg PO DAILY [facility] Last Admin: 12/06/19 09:13 Dose: 20 mg Documented by: Vancomycin HCl 1,250 mg/ (Dextrose) 250 mls @ 166.667 mls/hr IVPB Q12H [facility]; Protocol Last Admin: 12/06/19 03:17 Dose: 166.667 mls/hr Documented by: Lactulose (Cephulac (Oral Use)) 20 gm PO DAILY [facility] Last Admin: 12/06/19 09:11 Dose: 20 gm Documented by: Methadone HCl 40 mg/ Methadone (HCl 30 mg/ Methadone HCl 5 mg) 75 mg PO DAILY@0600 [facility] Last Admin: 12/06/19 05:01 Dose: 75 mg Documented by: Ondansetron HCl (Zofran Injection) 4 mg IVPUSH Q6H PRN PRN Reason: NAUSEA AND/OR VOMITING Oxycodone HCl (Roxicodone -) 10 mg PO Q8H PRN PRN Reason: PAIN LEVEL 7 - 10 Last Admin: 12/05/19 21:11 Dose: 10 mg Documented by: Varenicline (Chantix -) 0.5 mg PO BID [facility] Last Admin: 12/06/19 09:12 Dose: 0.5 mg Documented by: - Objective Vital Signs: Vital Signs Temperature 98.3 F 12/06/19 08:07 Pulse Rate 55 L 12/06/19 08:07 Respiratory Rate 18 12/06/19 08:07 Blood Pressure 130/66 12/06/19 08:07 O2 Sat by Pulse Oximetry (%) 92 L 12/06/19 08:07 Constitutional: Yes: No Distress, Calm Eyes: Yes: Conjunctiva Clear, EOM Intact Cardiovascular: Yes: Regular Rate and Rhythm Respiratory: Yes: CTA Bilaterally Gastrointestinal: Yes: Soft (nt) Edema: No Neurological: Yes: Alert, Oriented ...Motor Strength: WNL Labs: CBC, BMP 12/06/19 06:31 12/06/19 06:31 INR, PTT INR 1.12 (0.83-1.09) H 11/27/19 11:30 Microbiology 12/02/19 11:40 Bone Gram Stain - Final 12/02/19 11:40 Bone Anaerobic Culture - Final Enterococcus Faecalis Staphylococcus Lugdunensis Diphtheroid/Corynebacterium NO ANAEROBES WERE ISOLATED 11/28/19 13:00 Foot - Left Gram Stain - Final 11/28/19 13:00 Foot - Left Wound Culture - Final Staphylococcus Coagulase Neg Enterococcus Faecalis 11/27/19 11:30 Blood - Peripheral Venous Blood Culture - Final NO GROWTH AFTER 5 DAYS INCUBATION 11/27/19 11:30 Blood - Peripheral Venous Blood Culture - Final NO GROWTH AFTER 5 DAYS INCUBATION Laboratory Tests 11/29/19 12/05/19 12/06/19 18:30 14:30 06:31 WBC 5.3 Hgb 13.2 Plt Count 112 L D Sodium Potassium Creatinine Magnesium Stool Occult Blood Negative COVID-19 (ROBERT) Pending 12/06/19 06:31 WBC Hgb Plt Count Sodium 138 Potassium 3.6 Creatinine 1.1 Magnesium 2.3 Stool Occult Blood COVID-19 (ROBERT) Assessment/Plan ecg 11/27/19, 12/02/19: sr 50s,60s, 1stavb, nonspec tw changes, no st changes echo 11/2017: no sig abnormalities mibi 11/2017: no ischemia cxr: no sig chf a/p: 59 m hx hiv, htn, 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 abnl ecg, bradycardia: -ecgs, tele reviewed. 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 After surgery tele showed same 1st avb but also sinus mert and occasional non conducted p waves. These are benign and most likely related to sedation used in periop setting - HR stable. No need for further cardiac testing or tele at this time. htn: -cont norvasc toe osteo: -s/p surgery -abx per ID
[2019-12-06] MEDS: oxyCODONE HCL 5 MG TABLET PO PRN ×2 (13:10→21:02)
[2019-12-06] MEDS: VANCOMYCIN 1 GRAM (PRE-DOCKED) 1,000 MG/250 ML BAG IVPB SCH (16:08)
--- NOTE | 2019-12-06 16:33 | PN ---
Physical Exam: SUBJECTIVE: Patient seen and examined at the bedside. Denies pain. dressing changed by primary RN OBJECTIVE: Patient is a 59 year old male with a significant past medical history of HIV (per chart review, CD4 count of 617 on 11/06/18), HTN, depression, heroin abuse (on methadone), osteomyelitis, anxiety, sciatica (on percocet), HCV who presents in the ED for worsening L 2nd toe pain/swelling sent by his podiatry (Dr. Reed). on 12/02/2019: patient is s/p amputation of distal portion of second toe amputation. He is on day #4 of 5 or 7 of Vancomycin (allergy to pcn). imaging: lower ext mri: soft tissue swelling of dorsal foot compatible with cellulits, osteomyelitis distal phalanx of 2nd toe covid status: negative serology as of 11/29/2019 Period Temp Pulse Resp BP Sys/Forman Pulse Ox Last 24 Hr 98.2 F-98.5 F 55-95 18-18 116-151/52-90 92-97 GENERAL: The patient is awake, alert, and fully oriented, in no acute distress. HEAD: Normal with no signs of trauma. EYES: PERRL, extraocular movements intact, sclera anicteric, conjunctiva clear. No ptosis. ENT: Ears normal, nares patent, oropharynx clear without exudates, moist mucous membranes. NECK: Trachea midline, full range of motion, supple. LUNGS: Breath sounds equal, clear to auscultation bilaterally, no wheezes, no crackles, no accessory muscle use. HEART: Regular rate and rhythm ABDOMEN: Soft, nontender, nondistended, normoactive bowel sounds, no guarding, no rebound, no hepatosplenomegaly, no masses. EXTREMITIES: s/p left second digit partial amputation, wound clean, no drainage or odor. NEUROLOGICAL: Normal speech, gait not observed. PSYCH: Normal mood, normal affect. SKIN: Warm, dry, normal turgor, no rashes or lesions noted Laboratory Results - last 24 hr 11/29/19 12/06/19 12/06/19 18:30 06:31 06:31 WBC 5.3 RBC 4.41 Hgb 13.2 Hct 40.7 MCV 92.2 MCH 29.8 MCHC 32.3 RDW 13.8 Plt Count 112 L D MPV 8.6 Absolute Neuts (auto) 2.0 Neutrophils % 37.6 L Lymphocytes % 47.2 H D Monocytes % 11.0 H Eosinophils % 3.3 Basophils % 0.9 Nucleated RBC % 0 Sodium 138 Potassium 3.6 Chloride 103 Carbon Dioxide 29 Anion Gap 7 L BUN 14.8 Creatinine 1.1 Est GFR (CKD-EPI)AfAm 83.53 Est GFR (CKD-EPI)NonAf 72.07 Random Glucose 94 Calcium 8.9 Magnesium 2.3 Total Bilirubin 0.5 AST 63 H ALT 24 Alkaline Phosphatase 85 Total Protein 8.4 H Albumin 3.7 Vancomycin Pre-Dose COVID-19 (ROBERT) Not detected 12/06/19 14:45 WBC RBC Hgb Hct MCV MCH MCHC RDW Plt Count MPV Absolute Neuts (auto) Neutrophils % Lymphocytes % Monocytes % Eosinophils % Basophils % Nucleated RBC % Sodium Potassium Chloride Carbon Dioxide Anion Gap BUN Creatinine Est GFR (CKD-EPI)AfAm Est GFR (CKD-EPI)NonAf Random Glucose Calcium Magnesium Total Bilirubin AST ALT Alkaline Phosphatase Total Protein Albumin Vancomycin Pre-Dose 17.0 H COVID-19 (ROBERT) Active Medications Generic Name Dose Route Start Last Admin Trade Name Freq PRN Reason Stop Dose Admin Amlodipine Besylate 5 mg 12/03/19 10:00 12/06/19 09:11 Norvasc - PO 5 mg DAILY HAN Administration Docusate Sodium 100 mg 12/02/19 12:51 12/05/19 09:10 Colace - PO 100 mg TID PRN Administration CONSTIPATION Enoxaparin Sodium 40 mg 12/04/19 17:00 12/06/19 09:13 Lovenox - SQ 40 mg DAILY HAN Administration Ergocalciferol 50,000 unit 12/04/19 18:00 12/04/19 17:42 Drisdol - PO 50,000 unit We@1800 HAN Administration Famotidine 20 mg 12/03/19 10:00 12/06/19 09:12 Pepcid - PO 20 mg DAILY HAN Administration Fentanyl 25 mcg 12/02/19 12:51 Sublimaze Injection - IVPUSH [id number] PRN PAIN-PACU ORDER X 4 DOSES ONLY Fluticasone Propionate 1 spray 12/03/19 10:00 12/06/19 09:15 Flonase - NS 1 spr DAILY HAN Administration Furosemide 20 mg 12/03/19 10:00 12/06/19 09:13 Lasix - PO 20 mg DAILY HAN Administration Vancomycin HCl 1,000 mg in 250 mls @ 166.667 mls/hr 12/06/19 16:00 12/06/19 16:08 Vancomycin (Pre-Docked) IVPB 166.667 mls/hr BID@0400,1600 HAN Administration Protocol Lactulose 20 gm 12/03/19 10:00 12/06/19 09:11 Cephulac (Oral Use) PO 20 gm DAILY HAN Administration Methadone HCl 40 mg/ Methadone 75 mg 12/03/19 06:00 12/06/19 05:01 HCl 30 mg/ Methadone HCl 5 mg PO 75 mg DAILY@0600 HAN Administration Ondansetron HCl 4 mg 12/02/19 12:51 Zofran Injection IVPUSH Q6H PRN NAUSEA AND/OR VOMITING Oxycodone HCl 10 mg 12/03/19 13:54 12/06/19 13:10 Roxicodone - PO 10 mg Q8H PRN Administration PAIN LEVEL 7 - 10 Varenicline 0.5 mg 12/02/19 22:00 12/06/19 09:12 Chantix - PO 0.5 mg BID HAN Administration ASSESSMENT/PLAN: Problem List - Problems (1) Osteomyelitis of ankle or foot, left, acute Assessment/Plan: left foot xray with significant soft tissue swelling of L second toe w/o evidence of air. lower ext mri: soft tissue swelling of dorsal foot compatible with cellulits, osteomyelitis distal phalanx of 2nd toe on 12/02/2019: patient is s/p left 2nd digit symes amputation on vancomycin day 4 Code(s): M86.172 - OTHER ACUTE OSTEOMYELITIS, LEFT ANKLE AND FOOT (2) HIV (human immunodeficiency virus infection) Assessment/Plan: continue home meds Code(s): Z21 - ASYMPTOMATIC HUMAN IMMUNODEFICIENCY VIRUS INFECTION STATUS (3) Methadone maintenance therapy patient Assessment/Plan: on methadone maintenance. patient follows with pain specialist for back pain/hip pain also on percocets BID at home (ISTOP reviewed) Code(s): F11.20 - OPIOID DEPENDENCE, UNCOMPLICATED (4) Obesity (BMI 30-39.9) Assessment/Plan: outpatient follow up Code(s): E66.9 - OBESITY, UNSPECIFIED (5) Leukopenia Assessment/Plan: similar to previous admission. monitor with daily labs Code(s): D72.819 - DECREASED WHITE BLOOD CELL COUNT, UNSPECIFIED (6) Thrombocytopenia Assessment/Plan: similar to previous admission. monitor with daily labs Code(s): D69.6 - THROMBOCYTOPENIA, UNSPECIFIED (7) DVT prophylaxis Assessment/Plan: lovenox 40mg daily Code(s): Z29.9 - ENCOUNTER FOR PROPHYLACTIC MEASURES, UNSPECIFIED Visit type - Emergency Visit Emergency Visit: Yes ED Registration Date: 11/27/19 Care time: The patient presented to the Emergency Department on the above date and was hospitalized for further evaluation of their emergent condition. - New Patient This patient is new to me today: No - Critical Care Critical Care patient: No - Discharge Referral Referred to [facility] Med P.C.: No
--- NOTE | 2019-12-06 16:39 | PN ---
Progress Note (short form) - Note Progress Note: Podiatry F/U: Seen/evaluated at bedside NAD. Pain controlled. Denies F/V/N/C/SOB/CP. S/p left second digit partial amputation . Doing very well. States d/c is set for monday. BRYAN: L foot: pedal pulses palpable, TG wnl, CFT brisk to toes. Post-surgical dressing clean, dry, intact; no active bleeding, no bandage strikethrough. Sutures well coapted, no dehiscence noted. There is no purulence, no fluctuance, no streaking cellulitis, no signs of active infection. Minimal tenderness to palpation. Imp: 59 year old diabetic male s/p left second digit partial amputation Evaluated and reviewed leave dressign c/d/i until monday; can change with wet to dry f/u next monday as outpatient in the wound care center; patient to call for appt stable from pod standpoint for d/c
[2019-12-07] MEDS: VANCOMYCIN 1 GRAM (PRE-DOCKED) 1,000 MG/250 ML BAG IVPB SCH ×2 (04:54→15:19)
[2019-12-07] MEDS ORDERED: METHADONE HCL 5 MG TABLET ONE (05:49)
[2019-12-07] MEDS ORDERED: METHADONE HCL 40 MG DISPERSABLE TABLET ONE (05:50)
[2019-12-07] MEDS ORDERED: METHADONE HCL 10 MG TABLET ONE (05:50)
[2019-12-07] MEDS: METHADONE 40 MG, METHADONE 30 MG, METHADONE 5 MG PO SCH (05:51)
[2019-12-07 08:12] LABS: BASO % 0.8 % (0-2.0); EOS % 4.4 % (0-4.5); HEMATOCRIT 39.3 % (35.4-49); HEMOGLOBIN 12.9 GM/dL (11.7-16.9); MCH 30.1 pg (25.7-33.7); MCHC 32.7 g/dl (32.0-35.9); MEAN PLT VOLUME 8.4 fl (7.5-11.1); MONO % 11.1 % (3.8-10.2); NEUT % 41.7 % (42.8-82.8); PLATELET COUNT 102 K/MM3 (134-434); RBC 4.27 M/mm3 (4.00-5.60); RDW 13.9 % (11.9-15.9); WHITE BLOOD COUNT 3.7 K/mm3 (4.0-10.0)
[2019-12-07 08:40] LABS: ALBUMIN 3.6 g/dl (3.4-5.0); BILIRUBIN,TOTAL 0.8 mg/dL (0.2-1); BLOOD UREA NITROGEN 13.8 mg/dL (7-18); CALCIUM 8.8 mg/dL (8.5-10.1); MAGNESIUM 2.3 mg/dL (1.8-2.4); POTASSIUM 3.6 mmol/L (3.5-5.1); TOT PROT 8.1 g/dl (6.4-8.2)
--- NOTE | 2019-12-07 08:41 | PN ---
Progress Note, Physician Chief Complaint: doing well no acute distress, no fever no chills, no nausea no vomiting, History of Present Illness: Patient is a 59 year old male with a significant past medical history of HIV (per chart review, CD4 count of 617 on 11/06/18), HTN, depression, heroin abuse (on methadone), osteomyelitis, anxiety, sciatica (on percocets), HCV who presents in the ED for worsening L 2nd toe pain/swelling sent by his podiatry (Dr. Reed). - Current Medication List Current Medications: Active Medications Amlodipine Besylate (Norvasc -) 5 mg PO DAILY [facility] Last Admin: 12/06/19 09:11 Dose: 5 mg Documented by: Docusate Sodium (Colace -) 100 mg PO TID PRN PRN Reason: CONSTIPATION Last Admin: 12/05/19 09:10 Dose: 100 mg Documented by: Enoxaparin Sodium (Lovenox -) 40 mg SQ DAILY [facility] Last Admin: 12/06/19 09:13 Dose: 40 mg Documented by: Ergocalciferol (Drisdol -) 50,000 unit PO We@1800 [facility] Last Admin: 12/04/19 17:42 Dose: 50,000 unit Documented by: Famotidine (Pepcid -) 20 mg PO DAILY [facility] Last Admin: 12/06/19 09:12 Dose: 20 mg Documented by: Fentanyl (Sublimaze Injection -) 25 mcg IVPUSH [id number] PRN PRN Reason: PAIN-PACU ORDER X 4 DOSES ONLY Fluticasone Propionate (Flonase -) 1 spray NS DAILY [facility] Last Admin: 12/06/19 09:15 Dose: 1 spr Documented by: Furosemide (Lasix -) 20 mg PO DAILY [facility] Last Admin: 12/06/19 09:13 Dose: 20 mg Documented by: Vancomycin HCl (Vancomycin (Pre-Docked)) 1,000 mg in 250 mls @ 166.667 mls/hr IVPB BID@0400,1600 [facility]; Protocol Last Admin: 12/07/19 04:54 Dose: 166.667 mls/hr Documented by: Lactulose (Cephulac (Oral Use)) 20 gm PO DAILY [facility] Last Admin: 12/06/19 09:11 Dose: 20 gm Documented by: Methadone HCl 40 mg/ Methadone (HCl 30 mg/ Methadone HCl 5 mg) 75 mg PO DAILY@0600 [facility] Last Admin: 12/07/19 05:51 Dose: 75 mg Documented by: Ondansetron HCl (Zofran Injection) 4 mg IVPUSH Q6H PRN PRN Reason: NAUSEA AND/OR VOMITING Oxycodone HCl (Roxicodone -) 10 mg PO Q8H PRN PRN Reason: PAIN LEVEL 7 - 10 Last Admin: 12/06/19 21:02 Dose: 10 mg Documented by: Varenicline (Chantix -) 0.5 mg PO BID [facility] Last Admin: 12/06/19 21:02 Dose: 0.5 mg Documented by: - Objective Vital Signs: Vital Signs Temperature 98 F 12/07/19 05:00 Pulse Rate 57 L 12/07/19 05:00 Respiratory Rate 16 12/07/19 05:00 Blood Pressure 136/96 12/07/19 05:00 O2 Sat by Pulse Oximetry (%) 94 L 12/07/19 05:00 Constitutional: Yes: Well Nourished, No Distress Eyes: Yes: Conjunctiva Clear, EOM Intact HENT: Yes: Atraumatic, Normocephalic Neck: Yes: Supple, Trachea Midline Cardiovascular: Yes: Regular Rate and Rhythm Respiratory: Yes: Regular, CTA Bilaterally Gastrointestinal: Yes: WNL, Normal Bowel Sounds, Soft Extremities: Yes: WNL, Other (dressing L foot,) Wound/Incision: Yes: Other (L foot dressing, wound not examined,) Labs: CBC, BMP 12/07/19 07:25 12/07/19 07:25 INR, PTT INR 1.12 (0.83-1.09) H 11/27/19 11:30 Impression/Plan Impression/Plan: #Osteomyelitis of ankle or foot, left, acute soft tissue swelling of dorsal foot compatible with cellulits, osteomyelitis distal phalanx of 2nd toe on 12/02/2019: patient is s/p left 2nd digit symes amputation on vancomycin and will continue as per ID, #HIV (human immunodeficiency virus infection) continue home meds # Methadone maintenance therapy patient on methadone maintenance. patient follows with pain specialist for back pain/hip pain also on percocets BID at home (ISTOP reviewed) # Leukopenia stable, # Thrombocytopenia stable , no change, similar to previous admission. monitor with daily labs # DVT prophylaxis lovenox 40mg daily Visit type - Emergency Visit Emergency Visit: No - New Patient This patient is new to me today: Yes Date on this admission: 12/07/19 - Critical Care Critical Care patient: No - Discharge Referral Referred to [facility] Med P.C.: No
[2019-12-07] MEDS ORDERED: PT OWN MED DRAWER 7, Y5N ONE ×2 (09:29→20:09)
[2019-12-07] MEDS: EMTRICITAB/RILPIVIRI/TENOF ALA (ODEFSEY) TABLET PO SCH (09:35)
[2019-12-07] MEDS: FAMOTIDINE 20 MG TABLET PO SCH (09:35)
[2019-12-07] MEDS: amLODIPine BESYLATE 5 MG TABLET (FP) PO SCH (09:35)
[2019-12-07] MEDS: LACTULOSE 20 GM/30 ML UDC (FOR ORAL USE ONLY) PO SCH (09:35)
[2019-12-07] MEDS: VARENICLINE TARTRATE 0.5 MG TAB PO SCH ×2 (09:35→21:01)
[2019-12-07] MEDS: ENOXAPARIN NA (PORCINE) 40 MG/0.4 ML DISP.SYRIN SQ SCH (09:35)
[2019-12-07] MEDS: FUROSEMIDE 20 MG TABLET (FP) PO SCH (09:36)
[2019-12-07] MEDS: FLUTICASONE PROP 0.05% 16 GM NASAL SPRAY NS SCH (09:36)
[2019-12-07] MEDS: oxyCODONE HCL 5 MG TABLET PO PRN ×2 (09:41→20:54)
--- NOTE | 2019-12-07 12:48 | PN ---
Progress Note (short form) - Note Progress Note: cc: osteo s: no chest pain, palps, dizziness, dyspnea Current Medications Generic Name Dose Route Start Last Admin Trade Name Freq PRN Reason Stop Dose Admin Amlodipine Besylate 5 mg 12/03/19 10:00 12/07/19 09:35 Norvasc - PO 5 mg DAILY HAN Administration Docusate Sodium 100 mg 12/02/19 12:51 12/05/19 09:10 Colace - PO 100 mg TID PRN Administration CONSTIPATION Enoxaparin Sodium 40 mg 12/04/19 17:00 12/07/19 09:35 Lovenox - SQ 40 mg DAILY HAN Administration Ergocalciferol 50,000 unit 12/04/19 18:00 12/04/19 17:42 Drisdol - PO 50,000 unit We@1800 HAN Administration Famotidine 20 mg 12/03/19 10:00 12/07/19 09:35 Pepcid - PO 20 mg DAILY HAN Administration Fentanyl 25 mcg 12/02/19 12:51 Sublimaze Injection - IVPUSH [id number] PRN PAIN-PACU ORDER X 4 DOSES ONLY Fluticasone Propionate 1 spray 12/03/19 10:00 12/07/19 09:36 Flonase - NS 1 spr DAILY HAN Administration Furosemide 20 mg 12/03/19 10:00 12/07/19 09:36 Lasix - PO 20 mg DAILY HAN Administration Vancomycin HCl 1,000 mg in 250 mls @ 166.667 mls/hr 12/06/19 16:00 12/07/19 04:54 Vancomycin (Pre-Docked) IVPB 166.667 mls/hr BID@0400,1600 HAN Administration Protocol Lactulose 20 gm 12/03/19 10:00 12/07/19 09:35 Cephulac (Oral Use) PO 20 gm DAILY HAN Administration Methadone HCl 40 mg/ Methadone 75 mg 12/03/19 06:00 12/07/19 05:51 HCl 30 mg/ Methadone HCl 5 mg PO 75 mg DAILY@0600 HAN Administration Ondansetron HCl 4 mg 12/02/19 12:51 Zofran Injection IVPUSH Q6H PRN NAUSEA AND/OR VOMITING Oxycodone HCl 10 mg 12/03/19 13:54 12/07/19 09:41 Roxicodone - PO 10 mg Q8H PRN Administration PAIN LEVEL 7 - 10 Varenicline 0.5 mg 12/02/19 22:00 12/07/19 09:35 Chantix - PO 0.5 mg BID HAN Administration Vital Signs Period Temp Pulse Resp BP Sys/Forman Pulse Ox Last 24 Hr 98 F-98.6 F 55-66 16-20 116-146/59-96 92-100 Constitutional: Yes: No Distress, Calm Eyes: Yes: Conjunctiva Clear, EOM Intact Cardiovascular: Yes: Regular Rate and Rhythm Respiratory: Yes: CTA Bilaterally Gastrointestinal: Yes: Soft (nt) Edema: No Neurological: Yes: Alert, Oriented no jaundice, diaphoresis not agitated ecg 11/27/19, 12/02/19: sr 50s,60s, 1stavb, nonspec tw changes, no st changes echo 11/2017: no sig abnormalities mibi 11/2017: no ischemia cxr: no sig chf a/p: 59 m hx hiv, htn, 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 abnl ecg, bradycardia: -ecgs, tele reviewed. 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 After surgery tele showed same 1st avb but also sinus mert and occasional non conducted p waves. These are benign and most likely related to sedation used in periop setting - HR stable. No need for further cardiac testing or tele at this time. htn: -cont norvasc toe osteo: -s/p surgery -abx per ID
[2019-12-07] MEDS: DOCUSATE SODIUM 100 MG CAPSULE (FP) PO PRN (20:55)
[2019-12-08] MEDS: VANCOMYCIN 1 GRAM (PRE-DOCKED) 1,000 MG/250 ML BAG IVPB SCH ×2 (04:27→16:17)
[2019-12-08] MEDS ORDERED: METHADONE HCL 40 MG DISPERSABLE TABLET ONE (05:06)
[2019-12-08] MEDS ORDERED: METHADONE HCL 10 MG TABLET ONE (05:06)
[2019-12-08] MEDS ORDERED: METHADONE HCL 5 MG TABLET ONE (05:06)
[2019-12-08] MEDS: METHADONE 40 MG, METHADONE 30 MG, METHADONE 5 MG PO SCH (05:16)
[2019-12-08] MEDS: oxyCODONE HCL 5 MG TABLET PO PRN ×2 (09:39→21:07)
[2019-12-08] MEDS: ENOXAPARIN NA (PORCINE) 40 MG/0.4 ML DISP.SYRIN SQ SCH (09:39)
[2019-12-08] MEDS: amLODIPine BESYLATE 5 MG TABLET (FP) PO SCH (09:41)
[2019-12-08] MEDS: FAMOTIDINE 20 MG TABLET PO SCH (09:41)
[2019-12-08] MEDS: LACTULOSE 20 GM/30 ML UDC (FOR ORAL USE ONLY) PO SCH (09:41)
[2019-12-08] MEDS: FUROSEMIDE 20 MG TABLET (FP) PO SCH (09:42)
[2019-12-08] MEDS: FLUTICASONE PROP 0.05% 16 GM NASAL SPRAY NS SCH (09:44)
[2019-12-08] MEDS ORDERED: PT OWN MED DRAWER 7, Y5N ONE ×2 (09:57→20:56)
[2019-12-08] MEDS: EMTRICITAB/RILPIVIRI/TENOF ALA (ODEFSEY) TABLET PO SCH (10:00)
[2019-12-08] MEDS: VARENICLINE TARTRATE 0.5 MG TAB PO SCH ×2 (10:00→21:07)
[2019-12-08 10:27] LABS: BASO % 0.6 % (0-2.0); HEMATOCRIT 38.9 % (35.4-49); HEMOGLOBIN 12.8 GM/dL (11.7-16.9); LYMPH % 38.4 % (8-40); MCH 30.4 pg (25.7-33.7); MEAN CELL VOLUME 92.1 fl (80-96); MEAN PLT VOLUME 8.6 fl (7.5-11.1); MONO % 11.3 % (3.8-10.2); NEUT % 45.7 % (42.8-82.8); PLATELET COUNT 95 K/MM3 (134-434); RBC 4.22 M/mm3 (4.00-5.60); RDW 13.7 % (11.9-15.9); WHITE BLOOD COUNT 3.7 K/mm3 (4.0-10.0)
--- NOTE | 2019-12-08 10:29 | PN ---
Progress Note (short form) - Note Progress Note: no complaints s/p amputation of distal portion of second toe pod #6 day #6 vancomycin Vital Signs Period Temp Pulse Resp BP Sys/Forman Pulse Ox Last 24 Hr 97.7 F-98.5 F 52-63 17-20 109-138/57-73 92-100 cor-rrr lungs clear abd soft,nt ext sutures dry toe without erythema or drainage Microbiology 12/02/19 11:40 Bone Gram Stain - Final 12/02/19 11:40 Bone Tissue Culture - Final Enterococcus Faecalis Staphylococcus Lugdunensis Diphtheroid/Corynebacterium 12/02/19 11:40 Bone Anaerobic Culture - Final NO ANAEROBES WERE ISOLATED 11/27/19 11:30 Blood - Peripheral Venous Blood Culture - Final NO GROWTH AFTER 5 DAYS INCUBATION 11/27/19 11:30 Blood - Peripheral Venous Blood Culture - Final NO GROWTH AFTER 5 DAYS INCUBATION 11/28/19 13:00 Foot - Left Gram Stain - Final 11/28/19 13:00 Foot - Left Wound Culture - Final Staphylococcus Coagulase Neg Enterococcus Faecalis pathology- proximal margin no osteomyelitis a/p s/p amputation of distal portion second toe for osteo- operative culture with enterococcus, day #6 vancomycin -can d/c vancomycin in am, wound care f/u per podiatry-no need for po antibiotics as outpt pen allergy noted well controlled HIV-becki kimball liver cirrhosis-treated hep c
[2019-12-08 10:55] LABS: ALBUMIN 3.5 g/dl (3.4-5.0); BILIRUBIN,TOTAL 1.1 mg/dL (0.2-1); BLOOD UREA NITROGEN 15.9 mg/dL (7-18); CALCIUM 8.9 mg/dL (8.5-10.1); CREATININE 1.1 mg/dL (0.55-1.3); MAGNESIUM 2.3 mg/dL (1.8-2.4); POTASSIUM 3.5 mmol/L (3.5-5.1)
--- NOTE | 2019-12-08 11:50 | PN ---
Progress Note (short form) - Note Progress Note: cc: osteo s: no chest pain, palps, dizziness, dyspnea Current Medications Generic Name Dose Route Start Last Admin Trade Name Freq PRN Reason Stop Dose Admin Amlodipine Besylate 5 mg 12/03/19 10:00 12/08/19 09:41 Norvasc - PO 5 mg DAILY HAN Administration Docusate Sodium 100 mg 12/02/19 12:51 12/07/19 20:55 Colace - PO 100 mg TID PRN Administration CONSTIPATION Enoxaparin Sodium 40 mg 12/04/19 17:00 12/08/19 09:39 Lovenox - SQ 40 mg DAILY HAN Administration Ergocalciferol 50,000 unit 12/04/19 18:00 12/04/19 17:42 Drisdol - PO 50,000 unit We@1800 HAN Administration Famotidine 20 mg 12/03/19 10:00 12/08/19 09:41 Pepcid - PO 20 mg DAILY HAN Administration Fentanyl 25 mcg 12/02/19 12:51 Sublimaze Injection - IVPUSH [id number] PRN PAIN-PACU ORDER X 4 DOSES ONLY Fluticasone Propionate 1 spray 12/03/19 10:00 12/08/19 09:44 Flonase - NS 1 spr DAILY HAN Administration Furosemide 20 mg 12/03/19 10:00 12/08/19 09:42 Lasix - PO 20 mg DAILY HAN Administration Vancomycin HCl 1,000 mg in 250 mls @ 166.667 mls/hr 12/06/19 16:00 12/08/19 04:27 Vancomycin (Pre-Docked) IVPB 166.667 mls/hr BID@0400,1600 HAN Administration Protocol Lactulose 20 gm 12/03/19 10:00 12/08/19 09:41 Cephulac (Oral Use) PO 20 gm DAILY HAN Administration Methadone HCl 40 mg/ Methadone 75 mg 12/03/19 06:00 12/08/19 05:16 HCl 30 mg/ Methadone HCl 5 mg PO 75 mg DAILY@0600 HAN Administration Ondansetron HCl 4 mg 12/02/19 12:51 Zofran Injection IVPUSH Q6H PRN NAUSEA AND/OR VOMITING Oxycodone HCl 10 mg 12/03/19 13:54 12/08/19 09:39 Roxicodone - PO 10 mg Q8H PRN Administration PAIN LEVEL 7 - 10 Varenicline 0.5 mg 12/02/19 22:00 12/08/19 10:00 Chantix - PO 0.5 mg BID HAN Administration Vital Signs Period Temp Pulse Resp BP Sys/Forman Pulse Ox Last 24 Hr 97.7 F-98.5 F 52-63 17-20 109-138/57-73 92-100 Constitutional: Yes: No Distress, Calm Eyes: Yes: Conjunctiva Clear, EOM Intact Cardiovascular: Yes: Regular Rate and Rhythm Respiratory: Yes: CTA Bilaterally Gastrointestinal: Yes: Soft (nt) Edema: No Neurological: Yes: Alert, Oriented no jaundice, diaphoresis not agitated ecg 11/27/19, 12/02/19: sr 50s,60s, 1stavb, nonspec tw changes, no st changes echo 11/2017: no sig abnormalities mibi 11/2017: no ischemia cxr: no sig chf a/p: 59 m hx hiv, htn, 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 abnl ecg, bradycardia: -ecgs, tele reviewed. 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 After surgery tele showed same 1st avb but also sinus mert and occasional non conducted p waves. These are benign and most likely related to sedation used in periop setting - HR stable. No need for further cardiac testing or tele at this time. htn: -cont norvasc toe osteo: -s/p surgery -abx per ID
[2019-12-08] MEDS ORDERED: POTASSIUM CHLORIDE TABS 20 MEQ TABLET.ER (FP) PO ONE (15:30)
--- NOTE | 2019-12-08 15:33 | PN ---
Progress Note, Physician History of Present Illness: Seen and examined at bedside. No complaints. Denies nausea vomiting fever chills chest pain or SOB. Pain controlled with meds. Afebrile. - Current Medication List Current Medications: Active Medications Amlodipine Besylate (Norvasc -) [address] [facility] Last Admin: 12/08/19 09:41 Dose: 5 mg Documented by: Docusate Sodium (Colace -) 100 mg PO TID PRN PRN Reason: CONSTIPATION Last Admin: 12/07/19 20:55 Dose: 100 mg Documented by: Enoxaparin Sodium (Lovenox -) [address] [facility] Last Admin: 12/08/19 09:39 Dose: 40 mg Documented by: Ergocalciferol (Drisdol -) 50,000 unit PO We@1800 [facility] Last Admin: 12/04/19 17:42 Dose: 50,000 unit Documented by: Famotidine (Pepcid -) [address] [facility] Last Admin: 12/08/19 09:41 Dose: 20 mg Documented by: Fentanyl (Sublimaze Injection -) 25 mcg IVPUSH [id number] PRN PRN Reason: PAIN-PACU ORDER X 4 DOSES ONLY Fluticasone Propionate (Flonase -) [address] [facility] Last Admin: 12/08/19 09:44 Dose: 1 spr Documented by: Furosemide (Lasix -) [address] [facility] Last Admin: 12/08/19 09:42 Dose: 20 mg Documented by: Vancomycin HCl (Vancomycin (Pre-Docked)) 1,000 mg in 250 mls @ 166.667 mls/hr IVPB BID@0400,1600 [facility]; Protocol Last Admin: 12/08/19 04:27 Dose: 166.667 mls/hr Documented by: Lactulose (Cephulac (Oral Use)) [address] [facility] Last Admin: 12/08/19 09:41 Dose: 20 gm Documented by: Methadone HCl 40 mg/ Methadone (HCl 30 mg/ Methadone HCl 5 mg) 75 mg PO DAILY@0600 [facility] Last Admin: 12/08/19 05:16 Dose: 75 mg Documented by: Ondansetron HCl (Zofran Injection) 4 mg IVPUSH Q6H PRN PRN Reason: NAUSEA AND/OR VOMITING Oxycodone HCl (Roxicodone -) 10 mg PO Q8H PRN PRN Reason: PAIN LEVEL 7 - 10 Last Admin: 12/08/19 09:39 Dose: 10 mg Documented by: Potassium Chloride (K-Dur -) 40 meq PO ONCE ONE Stop: 12/08/19 15:31 Varenicline (Chantix -) 0.5 mg PO BID HAN Last Admin: 12/08/19 10:00 Dose: 0.5 mg Documented by: - Objective Vital Signs: Vital Signs Temperature 98.1 F 12/08/19 13:00 Pulse Rate 59 L 12/08/19 13:00 Respiratory Rate 20 12/08/19 13:00 Blood Pressure 106/68 12/08/19 13:00 O2 Sat by Pulse Oximetry (%) 100 12/08/19 13:00 Constitutional: Yes: No Distress, Obese Eyes: Yes: Conjunctiva Clear, EOM Intact HENT: Yes: Atraumatic, Normocephalic, Other (moist mucous membranes). No: Thrush Neck: Yes: Supple Cardiovascular: Yes: Regular Rate and Rhythm Respiratory: Yes: Regular, CTA Bilaterally Gastrointestinal: Yes: Normal Bowel Sounds, Soft, Abdomen, Obese Genitourinary: Yes: WNL. No: CVA Tenderness - Left, CVA Tenderness - Right Extremities: Yes: Amputation (of left second toe) Edema: No Wound/Incision: Yes: Clean/Dry, Sutures Intact. No: Draining Neurological: Yes: Alert, Oriented ...Motor Strength: WNL Labs: CBC, BMP 12/08/19 10:15 12/08/19 10:15 INR, PTT INR 1.12 (0.83-1.09) H 11/27/19 11:30 Impression/Plan Impression/Plan: Osteomyelitis of left second toe POD #6 s/p left second toe amputation. osteomyelitis distal phalanx of 2nd toe on vancomycin IV day 6. Trough 17 from 2 days ago. continue BID vancomycin IV and stop after tomorrow AM dose. No PO ABx on discharge per ID HIV continue home HAART meds ID follow up Methadone maintenance therapy program continue on methadone maintenance. Leukopenia stable Thrombocytopenia stable fluctuates 95,000 today from 102,000 yesterday similar to previous admission continue to trend HTN well controlled continue Norvasc Edema continue lasix 20 po daily DVT prophylaxis lovenox 40mg daily Visit type - Emergency Visit Emergency Visit: Yes ED Registration Date: 11/27/19 Care time: The patient presented to the Emergency Department on the above date and was hospitalized for further evaluation of their emergent condition. - New Patient This patient is new to me today: Yes Date on this admission: 12/08/19 - Critical Care Critical Care patient: No
[2019-12-09] MEDS: VANCOMYCIN 1 GRAM (PRE-DOCKED) 1,000 MG/250 ML BAG IVPB SCH (04:00)
[2019-12-09] MEDS ORDERED: METHADONE HCL 5 MG TABLET ONE (05:43)
[2019-12-09] MEDS ORDERED: METHADONE HCL 10 MG TABLET ONE (05:44)
[2019-12-09] MEDS ORDERED: METHADONE HCL 40 MG DISPERSABLE TABLET ONE (05:44)
[2019-12-09] MEDS: METHADONE 40 MG, METHADONE 30 MG, METHADONE 5 MG PO SCH (05:54)
[2019-12-09 08:53] VITALS: BP 131/68; PULSE 79; TEMP 98.9
[2019-12-09] MEDS: oxyCODONE HCL 5 MG TABLET PO PRN (08:55)
[2019-12-09] MEDS: FLUTICASONE PROP 0.05% 16 GM NASAL SPRAY NS SCH (08:59)
[2019-12-09] MEDS: FAMOTIDINE 20 MG TABLET PO SCH (09:00)
[2019-12-09] MEDS: ENOXAPARIN NA (PORCINE) 40 MG/0.4 ML DISP.SYRIN SQ SCH (09:00)
[2019-12-09] MEDS: LACTULOSE 20 GM/30 ML UDC (FOR ORAL USE ONLY) PO SCH (09:00)
[2019-12-09] MEDS: amLODIPine BESYLATE 5 MG TABLET (FP) PO SCH (09:00)
[2019-12-09] MEDS: FUROSEMIDE 20 MG TABLET (FP) PO SCH (09:00)
[2019-12-09] MEDS: EMTRICITAB/RILPIVIRI/TENOF ALA (ODEFSEY) TABLET PO SCH (09:01)
[2019-12-09] MEDS: VARENICLINE TARTRATE 0.5 MG TAB PO SCH (09:01)
[2019-12-09 10:49] LABS: BASO % 0.4 % (0-2.0); EOS % 3.3 % (0-4.5); HEMATOCRIT 39.8 % (35.4-49); LYMPH % 31.7 % (8-40); MCHC 32.6 g/dl (32.0-35.9); MEAN CELL VOLUME 92.1 fl (80-96); MONO % 10.9 % (3.8-10.2); NEUT % 53.7 % (42.8-82.8); PLATELET COUNT 97 K/MM3 (134-434); RBC 4.32 M/mm3 (4.00-5.60); WHITE BLOOD COUNT 3.9 K/mm3 (4.0-10.0)
--- NOTE | 2019-12-09 11:17 | PN ---
Progress Note (short form) - Note Progress Note: s: no chest pain, palps dizziness, dyspnea Current Medications Generic Name Dose Route Start Last Admin Trade Name Freq PRN Reason Stop Dose Admin Amlodipine Besylate 5 mg 12/03/19 10:00 12/09/19 09:00 Norvasc - PO 5 mg DAILY HAN Administration Docusate Sodium 100 mg 12/02/19 12:51 12/07/19 20:55 Colace - PO 100 mg TID PRN Administration CONSTIPATION Enoxaparin Sodium 40 mg 12/04/19 17:00 12/09/19 09:00 Lovenox - SQ 40 mg DAILY HAN Administration Ergocalciferol 50,000 unit 12/04/19 18:00 12/04/19 17:42 Drisdol - PO 50,000 unit We@1800 HAN Administration Famotidine 20 mg 12/03/19 10:00 12/09/19 09:00 Pepcid - PO 20 mg DAILY HAN Administration Fentanyl 25 mcg 12/02/19 12:51 Sublimaze Injection - IVPUSH [id number] PRN PAIN-PACU ORDER X 4 DOSES ONLY Fluticasone Propionate 1 spray 12/03/19 10:00 12/09/19 08:59 Flonase - NS 1 spr DAILY HAN Administration Furosemide 20 mg 12/03/19 10:00 12/09/19 09:00 Lasix - PO 20 mg DAILY HAN Administration Vancomycin HCl 1,000 mg in 250 mls @ 166.667 mls/hr 12/06/19 16:00 12/09/19 04:00 Vancomycin (Pre-Docked) IVPB 166.667 mls/hr BID@0400,1600 HAN Administration Protocol Lactulose 20 gm 12/03/19 10:00 12/09/19 09:00 Cephulac (Oral Use) PO 20 gm DAILY HAN Administration Methadone HCl 40 mg/ Methadone 75 mg 12/03/19 06:00 12/09/19 05:54 HCl 30 mg/ Methadone HCl 5 mg PO 75 mg DAILY@0600 HAN Administration Ondansetron HCl 4 mg 12/02/19 12:51 Zofran Injection IVPUSH Q6H PRN NAUSEA AND/OR VOMITING Oxycodone HCl 10 mg 12/03/19 13:54 12/09/19 08:55 Roxicodone - PO 10 mg Q8H PRN Administration PAIN LEVEL 7 - 10 Varenicline 0.5 mg 12/02/19 22:00 12/09/19 09:01 Chantix - PO 0.5 mg BID HAN Administration Vital Signs Period Temp Pulse Resp BP Sys/Forman Pulse Ox Last 24 Hr 98.0 F-98.9 F 52-79 17-20 106-139/62-84 93-100 nad no jvd rrr s1s2 no mrg cta bl nl eff aao3 no le e/c/c abd nt nd pos bs no jaundice diaphoresis CBC, BMP 12/09/19 09:50 ecg 11/27/19, 12/02/19: sr 50s,60s, 1stavb, nonspec tw changes, no st changes echo 11/2017: no sig abnormalities mibi 11/2017: no ischemia cxr: no sig chf a/p: 59 m hx hiv, htn, 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 abnl ecg, bradycardia: -ecgs, tele reviewed. 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 After surgery tele showed same 1st avb but also sinus mert and occasional non conducted p waves. These are benign and most likely related to sedation used in periop setting - HR stable. No need for further cardiac testing or tele at this time. htn: -cont norvasc toe osteo: -s/p surgery -abx per ID
[2019-12-09 11:23] LABS: ALBUMIN 3.7 g/dl (3.4-5.0); BILIRUBIN,TOTAL 0.7 mg/dL (0.2-1); CALCIUM 8.9 mg/dL (8.5-10.1); MAGNESIUM 2.3 mg/dL (1.8-2.4); TOT PROT 8.2 g/dl (6.4-8.2)
--- NOTE | 2019-12-09 11:25 | DS ---
Physical Exam: SUBJECTIVE: Patient seen and examined at the bedside. he is up for discharge today. he agrees to follow up at the wound care center a visiting nurse will be assigned for the wound care. OBJECTIVE: Patient is a 59 year old male with a significant past medical history of HIV (per chart review, CD4 count of 617 on 11/06/18), HTN, depression, heroin abuse (on methadone), osteomyelitis, anxiety, sciatica (on percocet), HCV who presents in the ED for worsening L 2nd toe pain/swelling sent by his podiatry (Dr. Reed). on 12/02/2019: patient is s/p amputation of distal portion of second toe amputation. He has completed Vancomycin IV therapy and will follow up with podiatry as an outpatient. Vital Signs Period Temp Pulse Resp BP Sys/Forman Pulse Ox Last 24 Hr 98.0 F-98.9 F 52-79 17-20 106-139/62-84 93-100 PHYSICAL EXAM GENERAL: The patient is awake, alert, and fully oriented, in no acute distress. HEAD: Normal with no signs of trauma. EYES: PERRL, extraocular movements intact, sclera anicteric, conjunctiva clear. No ptosis. ENT: Ears normal, nares patent, oropharynx clear without exudates, moist mucous membranes. NECK: Trachea midline, full range of motion, supple. LUNGS: Breath sounds equal, clear to auscultation bilaterally, no wheezes, no crackles, no accessory muscle use. HEART: Regular rate and rhythm ABDOMEN: Soft, nontender, nondistended, normoactive bowel sounds, no guarding, no rebound, no hepatosplenomegaly, no masses. EXTREMITIES: s/p left second digit partial amputation, dressing clean, no drainage or odor. NEUROLOGICAL: Normal speech, gait not observed. PSYCH: Normal mood, normal affect. SKIN: Warm, dry, normal turgor, no rashes or lesions noted LABS Laboratory Results - last 24 hr 12/09/19 12/09/19 06:00 09:50 WBC 3.9 L RBC 4.32 Hgb 13.0 Hct 39.8 MCV 92.1 MCH 30.0 MCHC 32.6 RDW 14.0 Plt Count 97 L MPV 9.0 Absolute Neuts (auto) 2.1 Neutrophils % 53.7 Lymphocytes % 31.7 Monocytes % 10.9 H Eosinophils % 3.3 Basophils % 0.4 Nucleated RBC % 0 Sodium 140 Potassium 4.0 Chloride 105 Carbon Dioxide 29 Anion Gap 6 L BUN 15.0 Creatinine 1.0 Est GFR (CKD-EPI)AfAm 93.73 Est GFR (CKD-EPI)NonAf 80.87 Random Glucose 130 H Calcium 8.9 Magnesium 2.3 Total Bilirubin 0.7 AST 77 H ALT 33 Alkaline Phosphatase 84 Total Protein 8.2 Albumin 3.7 HOSPITAL COURSE: Date of Admission:11/27/19 Date of Discharge: 12/09/19 Minutes to complete discharge: 45 Discharge Summary Problems reviewed: Yes Reason For Visit: ACUTE OSTEOMYELITIS OF LEFT ANKLE OR FOOT Current Active Problems DVT prophylaxis (Acute) Leukopenia (Acute) Osteomyelitis of ankle or foot, left, acute (Acute) Thrombocytopenia (Acute) Condition: Fair - Instructions Diet, Activity, Other Instructions: Mr Martínez: You were admitted to [facility] on for left foot wound. You were evaluated by the vp ancillary and an amputation of the distal portion of second toe was done. You have completed the antibiotics and therefore we will not be sending you home with any further antibiotics. NEXT STEPS: Dressing changes 1. wash your hand and remove existing dressing 2. inspect wound for any drainage or redness, if you have either of these please report immediately 3. clean your foot with sterile saline (can be purchased over the counter) 4. pat dry thoroughly 5. obtain 4 x 4 dressing a apply small amount of normal saline (sterile). apply on wound 6. apply 4 x 4 dry dressing around the toe to cushion the wound 7. secure with sterile hanna dressing (can be purchased over the counter) 8. wash your hands FOLLOW UPS: Please follow up with your primary care provider within 1 week Please follow up with Dr. Rivas for a follow up visit at the wound care clinic next Monday We will be sending you with a visiting nurse Please follow up with Dr Chatman (wig comber) by calling their office for an appointment. Thank you for allowing us to care for you. Questions? Please call me with any questions/concerns. Liana Hdez NP [facility] [phone] Referrals: Jasmine Parish NP [Primary Care Provider] - Gaetano Chatman MD [Staff Physician] - Nowland,Luis, DPM [Staff Physician] - Disposition: VNS/HOME HEALTH CARE - Home Medications Comprehensive Discharge Medication List: Ambulatory Orders Methadone [Dolophine -] 75 mg PO DAILY@0600 MDD 1 07/05/17 Docusate Sodium [Colace] 100 mg PO TID PRN 11/21/18 Amlodipine Besylate [Norvasc -] 5 mg PO DAILY #30 tablet 08/12/19 Emtricitab/Rilpiviri/Tenof Ala [Odefsey Tablet] 1 each PO DAILY #30 tablet 08/12/19 Ergocalciferol (Vitamin D2) [Vitamin D2] 50,000 unit PO Q7D #4 capsule 08/12/19 Sodium Chloride [Saline Nasal [place]] 1 - 2 spray NS PRN #1 spray 08/12/19 Fluticasone Prop 0.05% Nasal [Flonase -] 1 - 2 spray NS DAILY #1 spray 09/11/19 Varenicline Tartrate [Chantix -] 0.5 mg PO BID #60 tab 10/10/19 Lactulose (Oral Use) [Cephulac -] 20 gm PO DAILY #1 bottle 11/11/19 Furosemide [Lasix -] 20 mg PO DAILY 11/27/19 Hydrocodone/Acetaminophen [[place] 10-325 Tablet] 1 each PO BID MDD 2 11/27/19 Famotidine [Pepcid -] 20 mg PO DAILY tablet 12/09/19 Problem List - Problems (1) Osteomyelitis of ankle or foot, left, acute Assessment/Plan: left foot xray with significant soft tissue swelling of L second toe w/o evidence of air. lower ext mri: soft tissue swelling of dorsal foot compatible with cellulits, osteomyelitis distal phalanx of 2nd toe on 12/02/2019: patient is s/p left 2nd digit symes amputation completed vancomycin Code(s): M86.172 - OTHER ACUTE OSTEOMYELITIS, LEFT ANKLE AND FOOT (2) HIV (human immunodeficiency virus infection) Assessment/Plan: continue home meds Code(s): Z21 - ASYMPTOMATIC HUMAN IMMUNODEFICIENCY VIRUS INFECTION STATUS (3) Methadone maintenance therapy patient Assessment/Plan: on methadone maintenance. patient follows with pain specialist for back pain/hip pain also on percocets BID at home (ISTOP reviewed) Code(s): F11.20 - OPIOID DEPENDENCE, UNCOMPLICATED (4) Obesity (BMI 30-39.9) Assessment/Plan: outpatient follow up Code(s): E66.9 - OBESITY, UNSPECIFIED (5) Leukopenia Assessment/Plan: similar to previous admission. monitor with daily labs Code(s): D72.819 - DECREASED WHITE BLOOD CELL COUNT, UNSPECIFIED (6) Thrombocytopenia Assessment/Plan: improved Code(s): D69.6 - THROMBOCYTOPENIA, UNSPECIFIED (7) DVT prophylaxis Code(s): Z29.9 - ENCOUNTER FOR PROPHYLACTIC MEASURES, UNSPECIFIED This patient is new to me today: Yes Date on this admission: 12/09/19 Emergency Visit: No Critical Care patient: No - Discharge Referral [facility]erred [facility] No
== END 2019-12-09 13:03 | disposition home health service (06) | DRG 314 ==
LOC: SUPCPDRO 10:37 → JER 10:37 → JERBED 13:10 → J6S 17:22 → J5S 11-29 12:58 → J7W 12-01 18:34
PROVIDERS: ADMIT Internal Medicine; ATTEND Nurse Practitioner Family
PROC: HZ91ZZZ Pharmacotherapy for Substance Abuse Treatment, Methadone Maintenance (ICD-10-PCS; 2019-11-27)
PROC: 0Y6S0Z0 Detachment at Left 2nd Toe, Complete, Open Approach (ICD-10-PCS; principal; 2019-12-02 10:30)
DX: M86.172 Other acute osteomyelitis, left ankle and foot (principal); Z21 Asymptomatic human immunodeficiency virus [HIV] infection status; F41.8 Other specified anxiety disorders; E87.6 Hypokalemia; R00.1 Bradycardia, unspecified; M54.40 Lumbago with sciatica, unspecified side; E66.9 Obesity, unspecified; Z68.33 Body mass index [BMI] 33.0-33.9, adult; D72.829 Elevated white blood cell count, unspecified; I73.9 Peripheral vascular disease, unspecified; K74.60 Unspecified cirrhosis of liver; D69.6 Thrombocytopenia, unspecified; F11.20 Opioid dependence, uncomplicated; M25.552 Pain in left hip; I44.1 Atrioventricular block, second degree; L03.116 Cellulitis of left lower limb; I10 Essential (primary) hypertension; B95.2 Enterococcus as the cause of diseases classified elsewhere; B95.7 Other staphylococcus as the cause of diseases classified elsewhere; F17.210 Nicotine dependence, cigarettes, uncomplicated; Z89.422 Acquired absence of other left toe(s); Z88.0 Allergy status to penicillin; Z86.19 Personal history of other infectious and parasitic diseases
CPT/HCPCS: 36415; 71045-TC-FY; 73630-TC-LT; 73718-TC-LT; 80053; 82272; 83735; 84100; 85025; 85027; 85610; 85651; 86140; 87040; 87070; 87075; 87186; 87205; 88305-TC; 88311-TC; 93005; 93010; 93923; 93971; 93971-TC; 94760; 99285-25; G0480; J0131; U0003

== ENCOUNTER 2020-12-14 09:19 | Inpatient (IN) | payer OTHER ==
[2020-12-14] MEDS ORDERED: PIPERACILLIN/TAZOB 3.375 GM 3.375 GM in DEXTROSE 5%-WATER - 50 ML IVPB ONE (11:10)
[2020-12-14] MEDS ORDERED: VANCOMYCIN 1,000 MG in DEXTROSE 5%-WATER - 250 ML IVPB ONE (11:10)
[2020-12-14 11:42] LABS: BASO % 0.5 % (0-2.0); EOS % 2.3 % (0-4.5); HEMATOCRIT 36.5 % (35.4-49); HEMOGLOBIN 12.1 GM/dL (11.7-16.9); LYMPH % 30.6 % (8-40); MCH 30.3 pg (25.7-33.7); MCHC 33.1 g/dl (32.0-35.9); MEAN CELL VOLUME 91.4 fl (80-96); MEAN PLT VOLUME 8.1 fl (7.5-11.1); MONO % 9.8 % (3.8-10.2); NEUT % 56.8 % (42.8-82.8); PLATELET COUNT 125 10^3/uL (134-434); RBC 3.99 M/mm3 (4.00-5.60); RDW 14.4 % (11.9-15.9); WHITE BLOOD COUNT 3.4 K/mm3 (4.0-10.0)
[2020-12-14 11:46] LABS: INR 1.13 (0.83-1.09); PROTHROMBIN TIME (PATIENT) 13.6 SEC (9.7-13.0)
[2020-12-14 11:56] LABS: ALBUMIN 3.3 g/dl (3.4-5.0); CALCIUM 8.1 mg/dL (8.5-10.1)
[2020-12-14 12:00] LABS: CREATININE 0.9 mg/dL (0.55-1.3)
[2020-12-14 12:01] LABS: BILIRUBIN,TOTAL 0.4 mg/dL (0.2-1); TOT PROT 8.2 g/dl (6.4-8.2)
[2020-12-14] MEDS ORDERED: VANCOMYCIN 1 GRAM (PRE-DOCKED) 1,000 MG/250 ML BAG IVPB ONE (12:07)
[2020-12-14] MEDS ORDERED: PIPERACILLIN/TAZOB 3.375 GM 3.375 GM/50 ML BAG IVPB ONE (12:07)
[2020-12-14] MEDS ORDERED: DOCUSATE SODIUM 100 MG CAPSULE (FP) PO PRN (12:41)
[2020-12-14] MEDS ORDERED: PATIENT'S OWN MEDICATION (NON-FORMULARY) (Hydrocodone Bit/Acetaminophen [Hydrocodon-Acetam PO PRN (12:41)
[2020-12-14] MEDS ORDERED: ERGOCALCIFEROL (VIT D2) 50,000 UNIT (1.25 MG) CAPSULE PO SCH (12:45)
[2020-12-14] MEDS ORDERED: AMMONIUM LACTATE 12% LOTION 225 GM BOTTLE TP SCH (12:45)
[2020-12-14] MEDS ORDERED: PT OWN MED DRAWER 7, Y5N ONE (14:31)
[2020-12-14] MEDS ORDERED: oxyCODONE HCL 5 MG TABLET PO PRN (15:48)
[2020-12-14] MEDS ORDERED: ACETAMINOPHEN 325 MG TABLET (FP) PO PRN (15:48)
[2020-12-14 20:17] VITALS: BMI 35.9
[2020-12-14] MEDS ORDERED: traZODone HCL 100 MG TABLET (FP) PO SCH (22:00)
[2020-12-14] MEDS ORDERED: MIRTAZAPINE 15 MG TABLET (FP) PO SCH (22:00)
[2020-12-15] MEDS ORDERED: methaDONE HCL 40 MG DISPERSABLE TABLET PO SCH (06:00)
[2020-12-15 08:13] LABS: BASO % 0.7 % (0-2.0); EOS % 3.9 % (0-4.5); HEMATOCRIT 35.5 % (35.4-49); LYMPH % 36.7 % (8-40); MCH 30.9 pg (25.7-33.7); MCHC 33.8 g/dl (32.0-35.9); MEAN CELL VOLUME 91.4 fl (80-96); MEAN PLT VOLUME 8.1 fl (7.5-11.1); NEUT % 45.7 % (42.8-82.8); PLATELET COUNT 115 10^3/uL (134-434); RBC 3.89 M/mm3 (4.00-5.60); RDW 14.7 % (11.9-15.9); WHITE BLOOD COUNT 2.8 K/mm3 (4.0-10.0)
[2020-12-15 08:27] LABS: BLOOD UREA NITROGEN 12.7 mg/dL (7-18)
[2020-12-15 08:30] LABS: CREATININE 0.9 mg/dL (0.55-1.3)
[2020-12-15] MEDS ORDERED: methaDONE HCL 10 MG TABLET ONE (08:53)
[2020-12-15] MEDS ORDERED: methaDONE HCL 40 MG DISPERSABLE TABLET ONE (08:54)
[2020-12-15] MEDS: amLODIPine BESYLATE 5 MG TABLET (FP) PO SCH ×2 (08:58→10:42)
[2020-12-15] MEDS ORDERED: methaDONE 40 MG, methaDONE 30 MG PO SCH (09:00)
[2020-12-15] MEDS ORDERED: LACTULOSE 20 GM/30 ML UDC (FOR ORAL USE ONLY) PO SCH (10:00)
[2020-12-15] MEDS ORDERED: POLYETHYLENE GLYCOL (HEALTHYLAX) 3350 17 GM PACKET PO SCH (10:00)
[2020-12-15] MEDS ORDERED: FUROSEMIDE 20 MG TABLET (FP) PO SCH (10:00)
[2020-12-15] MEDS ORDERED: AMMONIUM LACTATE 12% LOTION 225 GM BOTTLE TP SCH (10:00)
[2020-12-15] MEDS ORDERED: FLUTICASONE PROP 0.05% 16 GM NASAL SPRAY NS SCH (10:00)
[2020-12-15] MEDS ORDERED: EMTRICITAB/RILPIVIRI/TENOF ALA (ODEFSEY) TABLET PO SCH (10:00)
[2020-12-15] MEDS ORDERED: MULTIVITAMINS THER W-MINERALS COMBO TABLET (FP) PO SCH (10:00)
[2020-12-15] MEDS ORDERED: LIDOCAINE HCL 2% (20ML MULTI-DOSE VIAL) ONE ×2 (10:31→11:07)
[2020-12-15] MEDS ORDERED: PROPOFOL 20 ML ONE ×2 (10:47)
[2020-12-15] MEDS ORDERED: MIDAZOLAM HCL 2 MG/2 ML SINGLE DOSE VIAL ONE ×2 (10:47)
[2020-12-15] MEDS ORDERED: LIDOCAINE HCL 2% 100 MG/5 ML DISP.SYRIN NR ONE ×2 (10:52)
[2020-12-15] MEDS ORDERED: DOCUSATE SODIUM 100 MG CAPSULE (FP) PO PRN (12:39)
[2020-12-15] MEDS ORDERED: ACETAMINOPHEN 325 MG TABLET (FP) PO PRN (12:39)
[2020-12-15] MEDS ORDERED: oxyCODONE HCL 5 MG TABLET PO PRN ×2 (12:39→12:48)
[2020-12-15] MEDS ORDERED: ONDANSETRON 4 MG/2 ML VIAL IVPUSH PRN (13:12)
[2020-12-15] MEDS ORDERED: ACETAMINOPHEN 1000 MG/100 ML VIAL (NON FORMULARY) IVPB PRN (13:33)
[2020-12-15] MEDS: VARENICLINE TARTRATE 0.5 MG TAB PO SCH ×2 (15:30→19:39)
[2020-12-15] MEDS: LACTATED RINGERS SOLUTION 1,000 ML IV SCH (18:01)
[2020-12-15] MEDS ORDERED: DEXTROSE 5%-WATER 100 ML IVPB ONE (21:32)
[2020-12-15] MEDS ORDERED: CEFEPIME HCL 1 GM VIAL (RESTRICTED TO ID) ONE (21:32)
[2020-12-15] MEDS: CEFEPIME 1 GM in DEXTROSE 5%-WATER 100 ML IVPB SCH (21:35)
[2020-12-15] MEDS ORDERED: VARENICLINE TARTRATE 0.5 MG TAB PO SCH (22:00)
[2020-12-15] MEDS ORDERED: MIRTAZAPINE 15 MG TABLET (FP) PO SCH (22:00)
[2020-12-15] MEDS ORDERED: traZODone HCL 100 MG TABLET (FP) PO SCH (22:00)
[2020-12-15] MEDS: VANCOMYCIN 1 GRAM (PRE-DOCKED) 1,000 MG/250 ML BAG IVPB SCH (22:11)
[2020-12-16] MEDS ORDERED: CEFEPIME HCL 1 GM VIAL (RESTRICTED TO ID) ONE ×3 (01:04→17:52)
[2020-12-16] MEDS ORDERED: DEXTROSE 5%-WATER 100 ML IVPB ONE ×3 (01:04→17:52)
[2020-12-16] MEDS: CEFEPIME 1 GM in DEXTROSE 5%-WATER 100 ML IVPB SCH ×3 (01:27→18:02)
[2020-12-16] MEDS: LACTATED RINGERS SOLUTION 1,000 ML IV SCH ×2 (01:33→15:54)
[2020-12-16] MEDS ORDERED: methaDONE HCL 10 MG TABLET ONE (05:32)
[2020-12-16] MEDS ORDERED: methaDONE HCL 40 MG DISPERSABLE TABLET ONE (05:33)
[2020-12-16] MEDS: methaDONE 40 MG, methaDONE 30 MG PO SCH (05:42)
[2020-12-16] MEDS: VANCOMYCIN 1 GRAM (PRE-DOCKED) 1,000 MG/250 ML BAG IVPB SCH ×2 (08:41→21:10)
[2020-12-16 09:21] LABS: BASO % 0.5 % (0-2.0); EOS % 1.1 % (0-4.5); HEMATOCRIT 36.7 % (35.4-49); HEMOGLOBIN 12.4 GM/dL (11.7-16.9); LYMPH % 21.8 % (8-40); MCH 30.5 pg (25.7-33.7); MCHC 33.7 g/dl (32.0-35.9); MEAN CELL VOLUME 90.5 fl (80-96); MONO % 13.6 % (3.8-10.2); PLATELET COUNT 119 10^3/uL (134-434); RBC 4.05 M/mm3 (4.00-5.60); RDW 14.6 % (11.9-15.9); WHITE BLOOD COUNT 6.4 K/mm3 (4.0-10.0)
[2020-12-16] MEDS ORDERED: KETOROLAC TROMETHAMINE 10 MG TABLET PO PRN (09:30)
[2020-12-16 10:01] LABS: ALBUMIN 3.2 g/dl (3.4-5.0); BLOOD UREA NITROGEN 12.2 mg/dL (7-18); CALCIUM 8.3 mg/dL (8.5-10.1)
[2020-12-16 10:04] LABS: BILIRUBIN,TOTAL 0.8 mg/dL (0.2-1); PHOSPHOROUS 2.8 mg/dL (2.5-4.9)
[2020-12-16 10:05] LABS: TOT PROT 8.5 g/dl (6.4-8.2)
[2020-12-16] MEDS: LACTULOSE 20 GM/30 ML UDC (FOR ORAL USE ONLY) PO SCH (10:14)
[2020-12-16] MEDS: EMTRICITAB/RILPIVIRI/TENOF ALA (ODEFSEY) TABLET PO SCH (10:15)
[2020-12-16] MEDS: MULTIVITAMINS THER W-MINERALS COMBO TABLET (FP) PO SCH (10:15)
[2020-12-16] MEDS: FUROSEMIDE 20 MG TABLET (FP) PO SCH (10:15)
[2020-12-16] MEDS: POLYETHYLENE GLYCOL (HEALTHYLAX) 3350 17 GM PACKET PO SCH (10:15)
[2020-12-16] MEDS: amLODIPine BESYLATE 5 MG TABLET (FP) PO SCH (10:15)
[2020-12-16] MEDS: ENOXAPARIN NA (PORCINE) 40 MG/0.4 ML DISP.SYRIN SQ SCH (10:16)
[2020-12-16] MEDS: AMMONIUM LACTATE 12% LOTION 225 GM BOTTLE TP SCH (11:11)
[2020-12-16] MEDS ORDERED: PT OWN MED DRAWER 7, Y5N ONE (12:26)
[2020-12-16] MEDS: FLUTICASONE PROP 0.05% 16 GM NASAL SPRAY NS SCH (12:34)
[2020-12-16] MEDS ORDERED: ACETAMINOPHEN 325 MG TABLET (FP) PO ONE (15:40)
[2020-12-17] MEDS ORDERED: DEXTROSE 5%-WATER 100 ML IVPB ONE ×2 (01:36→08:37)
[2020-12-17] MEDS ORDERED: CEFEPIME HCL 1 GM VIAL (RESTRICTED TO ID) ONE ×2 (01:36→08:36)
[2020-12-17] MEDS: CEFEPIME 1 GM in DEXTROSE 5%-WATER 100 ML IVPB SCH ×2 (02:18→11:24)
[2020-12-17] MEDS ORDERED: methaDONE HCL 10 MG TABLET ONE (05:37)
[2020-12-17] MEDS ORDERED: methaDONE HCL 40 MG DISPERSABLE TABLET ONE (05:37)
[2020-12-17] MEDS: methaDONE 40 MG, methaDONE 30 MG PO SCH (06:42)
[2020-12-17 08:44] LABS: BASO % 0.4 % (0-2.0); EOS % 2.2 % (0-4.5); HEMOGLOBIN 12.1 GM/dL (11.7-16.9); LYMPH % 31.7 % (8-40); MCH 30.6 pg (25.7-33.7); MCHC 33.6 g/dl (32.0-35.9); MEAN PLT VOLUME 8.1 fl (7.5-11.1); MONO % 12.7 % (3.8-10.2); PLATELET COUNT 117 10^3/uL (134-434); RBC 3.96 M/mm3 (4.00-5.60); RDW 14.5 % (11.9-15.9); WHITE BLOOD COUNT 6.5 K/mm3 (4.0-10.0)
[2020-12-17] MEDS: POLYETHYLENE GLYCOL (HEALTHYLAX) 3350 17 GM PACKET PO SCH (09:01)
[2020-12-17] MEDS: MULTIVITAMINS THER W-MINERALS COMBO TABLET (FP) PO SCH (09:01)
[2020-12-17] MEDS: VANCOMYCIN 1 GRAM (PRE-DOCKED) 1,000 MG/250 ML BAG IVPB SCH (09:01)
[2020-12-17] MEDS: amLODIPine BESYLATE 5 MG TABLET (FP) PO SCH (09:01)
[2020-12-17] MEDS: ENOXAPARIN NA (PORCINE) 40 MG/0.4 ML DISP.SYRIN SQ SCH (09:01)
[2020-12-17] MEDS: FUROSEMIDE 20 MG TABLET (FP) PO SCH (09:02)
[2020-12-17 09:09] LABS: ALBUMIN 3.1 g/dl (3.4-5.0); BLOOD UREA NITROGEN 11.2 mg/dL (7-18); CALCIUM 8.2 mg/dL (8.5-10.1); MAGNESIUM 2.1 mg/dL (1.8-2.4)
[2020-12-17 09:12] LABS: CREATININE 0.9 mg/dL (0.55-1.3); PHOSPHOROUS 2.8 mg/dL (2.5-4.9)
[2020-12-17 09:13] LABS: BILIRUBIN,TOTAL 0.9 mg/dL (0.2-1)
[2020-12-17 09:14] LABS: TOT PROT 8.1 g/dl (6.4-8.2)
[2020-12-17] MEDS: FLUTICASONE PROP 0.05% 16 GM NASAL SPRAY NS SCH (09:15)
[2020-12-17] MEDS: LACTULOSE 20 GM/30 ML UDC (FOR ORAL USE ONLY) PO SCH (09:15)
[2020-12-17] MEDS: EMTRICITAB/RILPIVIRI/TENOF ALA (ODEFSEY) TABLET PO SCH (09:16)
[2020-12-17] MEDS: AMMONIUM LACTATE 12% LOTION 225 GM BOTTLE TP SCH (09:16)
[2020-12-17] MEDS: traMADol HCL 50 MG TABLET PO PRN ×2 (15:15→21:45)
[2020-12-17] MEDS: LACTATED RINGERS SOLUTION 1,000 ML IV SCH (15:18)
[2020-12-17] MEDS: SULFAMETHOXAZOLE/TRIMETHOPRIM 800MG/160MG D.S. TABLET PO SCH (21:45)
[2020-12-18] MEDS: LACTATED RINGERS SOLUTION 1,000 ML IV SCH (00:14)
[2020-12-18] MEDS ORDERED: methaDONE HCL 40 MG DISPERSABLE TABLET ONE (06:55)
[2020-12-18] MEDS ORDERED: methaDONE HCL 10 MG TABLET ONE (06:55)
[2020-12-18] MEDS: methaDONE 40 MG, methaDONE 30 MG PO SCH (07:00)
[2020-12-18 09:49] LABS: BASO % 0.4 % (0-2.0); EOS % 3.8 % (0-4.5); HEMATOCRIT 34.8 % (35.4-49); HEMOGLOBIN 11.7 GM/dL (11.7-16.9); LYMPH % 26.3 % (8-40); MCH 30.2 pg (25.7-33.7); MCHC 33.5 g/dl (32.0-35.9); MEAN CELL VOLUME 90.1 fl (80-96); MEAN PLT VOLUME 8.1 fl (7.5-11.1); NEUT % 57.5 % (42.8-82.8); PLATELET COUNT 106 10^3/uL (134-434); RBC 3.86 M/mm3 (4.00-5.60); RDW 14.1 % (11.9-15.9); WHITE BLOOD COUNT 4.5 K/mm3 (4.0-10.0)
[2020-12-18 09:55] VITALS: BP 105/42; PULSE 66; TEMP 98.2
[2020-12-18 10:11] LABS: BLOOD UREA NITROGEN 12.5 mg/dL (7-18); CALCIUM 8.1 mg/dL (8.5-10.1)
[2020-12-18 10:14] LABS: CREATININE 0.9 mg/dL (0.55-1.3); PHOSPHOROUS 3.1 mg/dL (2.5-4.9)
[2020-12-18 10:16] LABS: BILIRUBIN,TOTAL 0.7 mg/dL (0.2-1)
[2020-12-18] MEDS: amLODIPine BESYLATE 5 MG TABLET (FP) PO SCH (10:58)
[2020-12-18] MEDS: FUROSEMIDE 20 MG TABLET (FP) PO SCH (10:58)
[2020-12-18] MEDS: POLYETHYLENE GLYCOL (HEALTHYLAX) 3350 17 GM PACKET PO SCH (10:58)
[2020-12-18] MEDS: SULFAMETHOXAZOLE/TRIMETHOPRIM 800MG/160MG D.S. TABLET PO SCH (10:58)
[2020-12-18] MEDS: MULTIVITAMINS THER W-MINERALS COMBO TABLET (FP) PO SCH (10:58)
[2020-12-18] MEDS: LACTULOSE 20 GM/30 ML UDC (FOR ORAL USE ONLY) PO SCH (10:58)
[2020-12-18] MEDS: EMTRICITAB/RILPIVIRI/TENOF ALA (ODEFSEY) TABLET PO SCH (10:58)
[2020-12-18] MEDS: ENOXAPARIN NA (PORCINE) 40 MG/0.4 ML DISP.SYRIN SQ SCH (11:00)
[2020-12-18] MEDS: FLUTICASONE PROP 0.05% 16 GM NASAL SPRAY NS SCH (11:02)
[2020-12-18] MEDS: AMMONIUM LACTATE 12% LOTION 225 GM BOTTLE TP SCH (12:21)
[2020-12-20] MEDS ORDERED: ERGOCALCIFEROL (VIT D2) 50,000 UNIT (1.25 MG) CAPSULE PO SCH (10:00)
== END 2020-12-18 18:25 | disposition home health service (06) | DRG 314 ==
LOC: JER 09:19 → JERBED 11:59 → J8W 15:14
PROVIDERS: ADMIT Internal Medicine; ATTEND Internal Medicine
PROC: HZ91ZZZ Pharmacotherapy for Substance Abuse Treatment, Methadone Maintenance (ICD-10-PCS; 2020-12-14)
PROC: 0Y6P0Z1 Detachment at Right 1st Toe, High, Open Approach (ICD-10-PCS; principal; 2020-12-15 10:00)
DX: E11.621 Type 2 diabetes mellitus with foot ulcer (principal); E11.69 Type 2 diabetes mellitus with other specified complication; M86.171 Other acute osteomyelitis, right ankle and foot; M86.671 Other chronic osteomyelitis, right ankle and foot; F11.20 Opioid dependence, uncomplicated; Z21 Asymptomatic human immunodeficiency virus [HIV] infection status; I10 Essential (primary) hypertension; F31.89 Other bipolar disorder; F41.8 Other specified anxiety disorders; D69.6 Thrombocytopenia, unspecified; E11.51 Type 2 diabetes mellitus with diabetic peripheral angiopathy without gangrene; E66.01 Morbid (severe) obesity due to excess calories; Z68.36 Body mass index [BMI] 36.0-36.9, adult; E11.42 Type 2 diabetes mellitus with diabetic polyneuropathy; E78.5 Hyperlipidemia, unspecified
CPT/HCPCS: 36415; 73630-TC-RT-FY; 80048; 80053; 83735; 84100; 85025; 85610; 86140; 86850; 86900; 86901; 87040; 87070; 87075; 87186; 87205; 93005; 93010; 93971-TC; 94010; 94760; 97116-GP; 97161-GP; 99285-25; C9803; J0131; U0003; U0005

== ENCOUNTER 2021-06-29 04:27 | Day surgery (SDC) | payer OTHER ==
[2021-06-25 16:52] VITALS: BMI 32.5
[2021-06-29] MEDS ORDERED: LIDOCAINE HCL 2% (20ML MULTI-DOSE VIAL) ONE (12:27)
[2021-06-29] MEDS ORDERED: LIDOCAINE HCL 2% (50ML VIAL) NR ONE ×2 (13:08→14:00)
[2021-06-29] MEDS ORDERED: MIDAZOLAM HCL 2 MG/2 ML SINGLE DOSE VIAL ONE (13:47)
[2021-06-29] MEDS ORDERED: CLINDAMYCIN PHOSPHATE 600 MG/4 ML VIAL ONE (14:13)
[2021-06-29] MEDS ORDERED: CLINDAMYCIN PHOSPHATE 900 MG/6 ML VIAL IVPB ONE ×2 (14:20→14:30)
[2021-06-29] MEDS ORDERED: LIDOCAINE HCL 2% JELLY 10 ML CARTRIDGE ONE (14:43)
[2021-06-29 16:14] VITALS: BP 142/75; PULSE 69; TEMP 98
== END 2021-06-29 16:38 | disposition home or self-care (01) ==
LOC: JASU-SURG 04:27
PROVIDERS: ATTEND Student in an Organized Health Care Education/Training Program
PROC: 0Y6T0Z3 Detachment at Right 3rd Toe, Low, Open Approach (ICD-10-PCS; principal; 2021-06-29 13:00)
DX: M86.8X7 Other osteomyelitis, ankle and foot (principal)
CPT/HCPCS: 87070; 87186; 87205; 88305-TC; 88311-TC

== ENCOUNTER 2021-07-06 10:59 | Inpatient (IN) | payer OTHER ==
[2021-07-06] MEDS ORDERED: IMIPENEM/CILASTATIN SODIUM 500 MG in SODIUM CHLORIDE 100 ML IV ONE (12:22)
[2021-07-06] MEDS ORDERED: VANCOMYCIN 1 GM in D5W (PRE-DOCKED) 1,000 MG/250 ML IVPB ONE (12:22)
[2021-07-06 12:30] LABS: BASO % 0.5 % (0-2.0); EOS % 1.5 % (0-4.5); HEMATOCRIT 35.5 % (35.4-49); HEMOGLOBIN 11.8 GM/dL (11.7-16.9); LYMPH % 20.6 % (8-40); MCH 29.6 pg (25.7-33.7); MCHC 33.1 g/dl (32.0-35.9); MEAN CELL VOLUME 89.4 fl (80-96); MEAN PLT VOLUME 7.5 fl (7.5-11.1); MONO % 13.5 % (3.8-10.2); NEUT % 63.9 % (42.8-82.8); PLATELET COUNT 143 10^3/uL (134-434); RBC 3.97 M/mm3 (4.00-5.60); RDW 14.1 % (11.9-15.9); WHITE BLOOD COUNT 4.8 K/mm3 (4.0-10.0)
[2021-07-06] MEDS ORDERED: VANCOMYCIN 1 GRAM (PRE-DOCKED) 1,000 MG/250 ML BAG IVPB ONE (12:49)
[2021-07-06 12:50] LABS: ALBUMIN 3.2 g/dl (3.4-5.0); BLOOD UREA NITROGEN 11.8 mg/dL (7-18); CALCIUM 8.6 mg/dL (8.5-10.1)
[2021-07-06 12:54] LABS: CREATININE 0.9 mg/dL (0.55-1.3)
[2021-07-06 12:55] LABS: BILIRUBIN,TOTAL 0.7 mg/dL (0.2-1); TOT PROT 8.5 g/dl (6.4-8.2)
[2021-07-06 13:06] LABS: INR 1.27 (0.83-1.09); PROTHROMBIN TIME (PATIENT) 14.6 SEC (9.7-13.0)
[2021-07-06 13:09] LABS: ACTIVATED PTT 34.6 SECONDS (25.2-36.5)
[2021-07-06] MEDS ORDERED: ACETAMINOPHEN 325 MG TABLET (FP) PO PRN (14:25)
[2021-07-06] MEDS ORDERED: oxyCODONE HCL 10 MG SUSTAINED ACTING TABLET PO PRN (15:35)
[2021-07-06] MEDS: ACETAMINOPHEN 325 MG TABLET (FP) PO SCH (16:05)
[2021-07-06] MEDS: EMTRICITAB/RILPIVIRI/TENOF ALA (ODEFSEY) TABLET PO SCH (17:38)
[2021-07-06] MEDS ORDERED: ACETAMINOPHEN 325 MG TABLET (FP) ONE ×2 (19:27→22:14)
[2021-07-06] MEDS ORDERED: oxyCODONE HCL 5 MG TABLET PO ONE (23:01)
[2021-07-06] MEDS ORDERED: traZODone HCL 50 MG TABLET (FP) ONE (23:20)
[2021-07-06] MEDS: traZODone HCL 100 MG TABLET (FP) PO SCH (23:24)
[2021-07-06 23:39] VITALS: BMI 33.1
[2021-07-06] MEDS ORDERED: POTASSIUM CHLORIDE ORAL LIQUID 20 MEQ/15 ML PO ONE (23:52)
[2021-07-07] MEDS: VANCOMYCIN 1 GRAM (PRE-DOCKED) 1,000 MG/250 ML BAG IVPB SCH ×3 (00:11→23:02)
[2021-07-07] MEDS ORDERED: DEXTROSE 5%-WATER 100 ML IVPB ONE ×3 (02:22→23:32)
[2021-07-07] MEDS ORDERED: MEROPENEM 1 GM VIAL (RESTRICTED TO ID) IVPB ONE ×4 (02:22→23:31)
[2021-07-07] MEDS: MEROPENEM 1 GM in DEXTROSE 5%-WATER 100 ML IVPB SCH ×3 (02:36→18:19)
[2021-07-07] MEDS: ACETAMINOPHEN 325 MG TABLET (FP) PO SCH ×5 (03:02→21:24)
[2021-07-07 09:14] LABS: BASO % 0.2 % (0-2.0); EOS % 3.3 % (0-4.5); HEMATOCRIT 35.4 % (35.4-49); HEMOGLOBIN 11.6 GM/dL (11.7-16.9); LYMPH % 27.9 % (8-40); MCH 29.6 pg (25.7-33.7); MCHC 32.8 g/dl (32.0-35.9); MEAN CELL VOLUME 90.3 fl (80-96); MEAN PLT VOLUME 7.9 fl (7.5-11.1); MONO % 11.8 % (3.8-10.2); NEUT % 56.8 % (42.8-82.8); PLATELET COUNT 138 10^3/uL (134-434); RBC 3.92 M/mm3 (4.00-5.60); RDW 14.3 % (11.9-15.9); WHITE BLOOD COUNT 3.3 K/mm3 (4.0-10.0)
[2021-07-07 09:38] LABS: BLOOD UREA NITROGEN 12.6 mg/dL (7-18); CALCIUM 8.6 mg/dL (8.5-10.1)
[2021-07-07 09:39] LABS: MAGNESIUM 2.5 mg/dL (1.8-2.4)
[2021-07-07 09:41] LABS: CREATININE 0.8 mg/dL (0.55-1.3); PHOSPHOROUS 3.6 mg/dL (2.5-4.9)
[2021-07-07] MEDS ORDERED: EMTRICITAB/RILPIVIRI/TENOF ALA (ODEFSEY) TABLET PO SCH (10:00)
[2021-07-07] MEDS ORDERED: methaDONE HCL 40 MG DISPERSABLE TABLET PO SCH (10:04)
[2021-07-07] MEDS: ENOXAPARIN NA (PORCINE) 40 MG/0.4 ML DISP.SYRIN SQ SCH (10:52)
[2021-07-07] MEDS: amLODIPine BESYLATE 5 MG TABLET (FP) PO SCH (10:52)
[2021-07-07] MEDS: MIRTAZAPINE 15 MG TABLET (FP) PO SCH (10:52)
[2021-07-07] MEDS: FUROSEMIDE 20 MG TABLET (FP) PO SCH (10:52)
[2021-07-07] MEDS: LACTULOSE 20 GM/30 ML UDC (FOR ORAL USE ONLY) PO SCH ×2 (10:53→11:08)
[2021-07-07] MEDS: EMTRICITAB/RILPIVIRI/TENOF ALA (ODEFSEY) TABLET PO SCH (10:56)
[2021-07-07] MEDS: POLYETHYLENE GLYCOL (HEALTHYLAX) 3350 17 GM PACKET PO SCH (10:56)
[2021-07-07] MEDS: COLLAGENASE CLOSTRIDIUM HIST. 30 GRAMS TUBE TP SCH (12:47)
[2021-07-07] MEDS ORDERED: methaDONE HCL 40 MG DISPERSABLE TABLET ONE (14:27)
[2021-07-07] MEDS ORDERED: methaDONE HCL 10 MG TABLET ONE (14:27)
[2021-07-07] MEDS: methaDONE 40 MG, methaDONE 30 MG PO SCH (14:28)
[2021-07-07] MEDS ORDERED: SODIUM CHLORIDE NASAL SPRAY 44 ML BOTTLE NS SCH (16:00)
[2021-07-07] MEDS: oxyCODONE HCL 5 MG TABLET PO PRN (18:25)
[2021-07-07] MEDS ORDERED: traZODone HCL 50 MG TABLET (FP) ONE (21:05)
[2021-07-07] MEDS: traZODone HCL 100 MG TABLET (FP) PO SCH ×2 (21:25→21:29)
[2021-07-08] MEDS: MEROPENEM 1 GM in DEXTROSE 5%-WATER 100 ML IVPB SCH ×2 (02:38→11:36)
[2021-07-08] MEDS: ACETAMINOPHEN 325 MG TABLET (FP) PO SCH ×4 (04:50→21:23)
[2021-07-08] MEDS: oxyCODONE HCL 5 MG TABLET PO PRN ×2 (05:13→16:42)
[2021-07-08] MEDS ORDERED: methaDONE HCL 40 MG DISPERSABLE TABLET ONE (05:45)
[2021-07-08] MEDS ORDERED: methaDONE HCL 10 MG TABLET ONE (05:45)
[2021-07-08] MEDS: methaDONE 40 MG, methaDONE 30 MG PO SCH (05:51)
[2021-07-08 08:42] LABS: HEMATOCRIT 34.6 % (35.4-49); HEMOGLOBIN 11.5 GM/dL (11.7-16.9); MCH 29.8 pg (25.7-33.7); MCHC 33.2 g/dl (32.0-35.9); MEAN CELL VOLUME 89.5 fl (80-96); MEAN PLT VOLUME 8.1 fl (7.5-11.1); PLATELET COUNT 143 10^3/uL (134-434); RBC 3.86 M/mm3 (4.00-5.60); RDW 14.3 % (11.9-15.9); WHITE BLOOD COUNT 3.7 K/mm3 (4.0-10.0)
[2021-07-08 09:06] LABS: ALBUMIN 2.9 g/dl (3.4-5.0)
[2021-07-08 09:07] LABS: BLOOD UREA NITROGEN 14.6 mg/dL (7-18); CALCIUM 8.6 mg/dL (8.5-10.1)
[2021-07-08 09:11] LABS: BILIRUBIN,TOTAL 0.7 mg/dL (0.2-1); TOT PROT 7.8 g/dl (6.4-8.2)
[2021-07-08] MEDS ORDERED: MEROPENEM 1 GM VIAL (RESTRICTED TO ID) IVPB ONE (11:30)
[2021-07-08] MEDS ORDERED: DEXTROSE 5%-WATER 100 ML IVPB ONE (11:31)
[2021-07-08] MEDS: ENOXAPARIN NA (PORCINE) 40 MG/0.4 ML DISP.SYRIN SQ SCH (11:36)
[2021-07-08] MEDS: amLODIPine BESYLATE 5 MG TABLET (FP) PO SCH (11:39)
[2021-07-08] MEDS: MIRTAZAPINE 15 MG TABLET (FP) PO SCH (11:39)
[2021-07-08] MEDS: FUROSEMIDE 20 MG TABLET (FP) PO SCH (11:39)
[2021-07-08] MEDS: POLYETHYLENE GLYCOL (HEALTHYLAX) 3350 17 GM PACKET PO SCH (11:40)
[2021-07-08] MEDS: LACTULOSE 20 GM/30 ML UDC (FOR ORAL USE ONLY) PO SCH (11:41)
[2021-07-08] MEDS: EMTRICITAB/RILPIVIRI/TENOF ALA (ODEFSEY) TABLET PO SCH (11:41)
[2021-07-08] MEDS: VANCOMYCIN 1 GRAM (PRE-DOCKED) 1,000 MG/250 ML BAG IVPB SCH (14:48)
[2021-07-08] MEDS: COLLAGENASE CLOSTRIDIUM HIST. 30 GRAMS TUBE TP SCH (14:55)
[2021-07-08] MEDS ORDERED: CEFAZOLIN 2 GM in DEXTROSE 5%-WATER - 100 ML IVPB SCH (15:30)
[2021-07-08] MEDS: CEFAZOLIN 2 GM in SODIUM CHLORIDE 100 ML IVPB SCH (18:50)
[2021-07-08] MEDS ORDERED: traZODone HCL 50 MG TABLET (FP) ONE (21:08)
[2021-07-08] MEDS: traZODone HCL 100 MG TABLET (FP) PO SCH (21:23)
[2021-07-09] MEDS: CEFAZOLIN 2 GM in SODIUM CHLORIDE 100 ML IVPB SCH ×3 (01:23→17:48)
[2021-07-09] MEDS: ACETAMINOPHEN 325 MG TABLET (FP) PO SCH ×6 (03:28→21:32)
[2021-07-09] MEDS: oxyCODONE HCL 5 MG TABLET PO PRN ×2 (03:34→19:01)
[2021-07-09] MEDS ORDERED: methaDONE HCL 10 MG TABLET ONE (05:42)
[2021-07-09] MEDS ORDERED: methaDONE HCL 40 MG DISPERSABLE TABLET ONE (05:42)
[2021-07-09] MEDS: methaDONE 40 MG, methaDONE 30 MG PO SCH (06:45)
[2021-07-09] MEDS: LACTULOSE 20 GM/30 ML UDC (FOR ORAL USE ONLY) PO SCH (10:37)
[2021-07-09] MEDS: ENOXAPARIN NA (PORCINE) 40 MG/0.4 ML DISP.SYRIN SQ SCH (10:37)
[2021-07-09] MEDS: POLYETHYLENE GLYCOL (HEALTHYLAX) 3350 17 GM PACKET PO SCH (10:39)
[2021-07-09] MEDS: amLODIPine BESYLATE 5 MG TABLET (FP) PO SCH (10:39)
[2021-07-09] MEDS: MIRTAZAPINE 15 MG TABLET (FP) PO SCH (10:39)
[2021-07-09] MEDS: FUROSEMIDE 20 MG TABLET (FP) PO SCH (10:39)
[2021-07-09] MEDS: COLLAGENASE CLOSTRIDIUM HIST. 30 GRAMS TUBE TP SCH (10:40)
[2021-07-09] MEDS: EMTRICITAB/RILPIVIRI/TENOF ALA (ODEFSEY) TABLET PO SCH (10:40)
[2021-07-09] MEDS: FLUTICASONE PROP 0.05% 16 GM NASAL SPRAY NS SCH (16:21)
[2021-07-09] MEDS: VANCOMYCIN 1 GRAM (PRE-DOCKED) 1,000 MG/250 ML BAG IVPB SCH (20:10)
[2021-07-09] MEDS ORDERED: traZODone HCL 50 MG TABLET (FP) ONE (21:26)
[2021-07-09] MEDS: traZODone HCL 100 MG TABLET (FP) PO SCH (21:32)
[2021-07-10] MEDS: oxyCODONE HCL 5 MG TABLET PO PRN ×2 (01:29→21:44)
[2021-07-10] MEDS: CEFAZOLIN 2 GM in SODIUM CHLORIDE 100 ML IVPB SCH ×3 (04:17→17:07)
[2021-07-10] MEDS: ACETAMINOPHEN 325 MG TABLET (FP) PO SCH ×4 (04:19→21:39)
[2021-07-10] MEDS ORDERED: methaDONE HCL 10 MG TABLET ONE (06:44)
[2021-07-10] MEDS ORDERED: methaDONE HCL 40 MG DISPERSABLE TABLET ONE (06:45)
[2021-07-10] MEDS: VANCOMYCIN 1 GRAM (PRE-DOCKED) 1,000 MG/250 ML BAG IVPB SCH ×2 (06:48→18:07)
[2021-07-10] MEDS: methaDONE 40 MG, methaDONE 30 MG PO SCH (06:49)
[2021-07-10 08:40] LABS: HEMATOCRIT 38.5 % (35.4-49); HEMOGLOBIN 12.3 GM/dL (11.7-16.9); MCH 29.2 pg (25.7-33.7); MCHC 32.1 g/dl (32.0-35.9); MEAN PLT VOLUME 7.9 fl (7.5-11.1); PLATELET COUNT 163 10^3/uL (134-434); RBC 4.23 M/mm3 (4.00-5.60); RDW 14.2 % (11.9-15.9); WHITE BLOOD COUNT 5.7 K/mm3 (4.0-10.0)
[2021-07-10] MEDS: EMTRICITAB/RILPIVIRI/TENOF ALA (ODEFSEY) TABLET PO SCH (08:40)
[2021-07-10 08:58] LABS: CALCIUM 8.8 mg/dL (8.5-10.1)
[2021-07-10 09:00] LABS: ALBUMIN 3.1 g/dl (3.4-5.0); BLOOD UREA NITROGEN 15.4 mg/dL (7-18)
[2021-07-10 09:03] LABS: BILIRUBIN,TOTAL 0.4 mg/dL (0.2-1)
[2021-07-10 09:04] LABS: TOT PROT 8.5 g/dl (6.4-8.2)
[2021-07-10] MEDS: POLYETHYLENE GLYCOL (HEALTHYLAX) 3350 17 GM PACKET PO SCH (09:29)
[2021-07-10] MEDS: FUROSEMIDE 20 MG TABLET (FP) PO SCH (09:30)
[2021-07-10] MEDS: MIRTAZAPINE 15 MG TABLET (FP) PO SCH (09:30)
[2021-07-10] MEDS: LACTULOSE 20 GM/30 ML UDC (FOR ORAL USE ONLY) PO SCH (09:30)
[2021-07-10] MEDS: ENOXAPARIN NA (PORCINE) 40 MG/0.4 ML DISP.SYRIN SQ SCH (09:30)
[2021-07-10] MEDS: amLODIPine BESYLATE 5 MG TABLET (FP) PO SCH (09:30)
[2021-07-10] MEDS: FLUTICASONE PROP 0.05% 16 GM NASAL SPRAY NS SCH (09:39)
[2021-07-10] MEDS: traZODone HCL 50 MG TABLET (FP) PO SCH (21:39)
[2021-07-11] MEDS: CEFAZOLIN 2 GM in SODIUM CHLORIDE 100 ML IVPB SCH ×3 (02:19→17:36)
[2021-07-11] MEDS: ACETAMINOPHEN 325 MG TABLET (FP) PO SCH ×4 (04:10→20:59)
[2021-07-11] MEDS ORDERED: methaDONE HCL 10 MG TABLET ONE (06:22)
[2021-07-11] MEDS ORDERED: methaDONE HCL 40 MG DISPERSABLE TABLET ONE (06:22)
[2021-07-11] MEDS: methaDONE 40 MG, methaDONE 30 MG PO SCH (06:52)
[2021-07-11] MEDS: VANCOMYCIN 1,000 MG in DEXTROSE 5%-WATER - 1,000 MG/250 ML IVPB IVPB SCH ×3 (07:04→17:37)
[2021-07-11] MEDS: ENOXAPARIN NA (PORCINE) 40 MG/0.4 ML DISP.SYRIN SQ SCH (09:57)
[2021-07-11] MEDS: MIRTAZAPINE 15 MG TABLET (FP) PO SCH (09:58)
[2021-07-11] MEDS: FUROSEMIDE 20 MG TABLET (FP) PO SCH (09:59)
[2021-07-11] MEDS: LACTULOSE 20 GM/30 ML UDC (FOR ORAL USE ONLY) PO SCH (09:59)
[2021-07-11] MEDS: amLODIPine BESYLATE 5 MG TABLET (FP) PO SCH (09:59)
[2021-07-11] MEDS: FLUTICASONE PROP 0.05% 16 GM NASAL SPRAY NS SCH (10:00)
[2021-07-11] MEDS: EMTRICITAB/RILPIVIRI/TENOF ALA (ODEFSEY) TABLET PO SCH (10:00)
[2021-07-11] MEDS: POLYETHYLENE GLYCOL (HEALTHYLAX) 3350 17 GM PACKET PO SCH (10:00)
[2021-07-11] MEDS: VANCOMYCIN 1 GRAM (PRE-DOCKED) 1,000 MG/250 ML BAG IVPB SCH (10:01)
[2021-07-11] MEDS: oxyCODONE HCL 5 MG TABLET PO PRN (20:53)
[2021-07-11] MEDS: traZODone HCL 50 MG TABLET (FP) PO SCH (20:59)
[2021-07-12] MEDS: CEFAZOLIN 2 GM in SODIUM CHLORIDE 100 ML IVPB SCH ×2 (02:17→10:00)
[2021-07-12] MEDS ORDERED: methaDONE HCL 40 MG DISPERSABLE TABLET ONE (05:33)
[2021-07-12] MEDS ORDERED: methaDONE HCL 10 MG TABLET ONE (05:33)
[2021-07-12] MEDS: VANCOMYCIN 1,000 MG in DEXTROSE 5%-WATER - 1,000 MG/250 ML IVPB IVPB SCH (06:21)
[2021-07-12] MEDS: methaDONE 40 MG, methaDONE 30 MG PO SCH (06:21)
[2021-07-12] MEDS: ACETAMINOPHEN 325 MG TABLET (FP) PO SCH ×2 (06:21→09:57)
[2021-07-12 09:29] LABS: HEMATOCRIT 36.6 % (35.4-49); HEMOGLOBIN 11.9 GM/dL (11.7-16.9); MCH 29.3 pg (25.7-33.7); MCHC 32.5 g/dl (32.0-35.9); MEAN CELL VOLUME 90.2 fl (80-96); MEAN PLT VOLUME 8.3 fl (7.5-11.1); PLATELET COUNT 166 10^3/uL (134-434); RBC 4.06 M/mm3 (4.00-5.60); WHITE BLOOD COUNT 4.2 K/mm3 (4.0-10.0)
[2021-07-12 09:52] LABS: ALBUMIN 2.9 g/dl (3.4-5.0); BLOOD UREA NITROGEN 11.9 mg/dL (7-18); MAGNESIUM 2.4 mg/dL (1.8-2.4)
[2021-07-12 09:56] LABS: BILIRUBIN,TOTAL 0.6 mg/dL (0.2-1); TOT PROT 8.3 g/dl (6.4-8.2)
[2021-07-12] MEDS: ENOXAPARIN NA (PORCINE) 40 MG/0.4 ML DISP.SYRIN SQ SCH (09:56)
[2021-07-12] MEDS: amLODIPine BESYLATE 5 MG TABLET (FP) PO SCH (09:57)
[2021-07-12] MEDS: FUROSEMIDE 20 MG TABLET (FP) PO SCH (09:57)
[2021-07-12] MEDS: LACTULOSE 20 GM/30 ML UDC (FOR ORAL USE ONLY) PO SCH (09:57)
[2021-07-12] MEDS: POLYETHYLENE GLYCOL (HEALTHYLAX) 3350 17 GM PACKET PO SCH (09:57)
[2021-07-12] MEDS: MIRTAZAPINE 15 MG TABLET (FP) PO SCH (09:57)
[2021-07-12] MEDS: EMTRICITAB/RILPIVIRI/TENOF ALA (ODEFSEY) TABLET PO SCH (10:00)
[2021-07-12] MEDS: FLUTICASONE PROP 0.05% 16 GM NASAL SPRAY NS SCH (10:02)
[2021-07-12] MEDS: oxyCODONE HCL 5 MG TABLET PO PRN (10:19)
[2021-07-12 14:59] VITALS: BP 136/69; PULSE 81; TEMP 98.2
== END 2021-07-12 16:00 | disposition home or self-care (01) | DRG 813 ==
LOC: JER 10:59 → JERBED 12:57 → J7W 23:08
PROVIDERS: ADMIT Internal Medicine; ATTEND Internal Medicine
DX: T81.32XA Disruption of internal operation (surgical) wound, not elsewhere classified, initial encounter (principal); T81.42XA Infection following a procedure, deep incisional surgical site, initial encounter; I10 Essential (primary) hypertension; Z21 Asymptomatic human immunodeficiency virus [HIV] infection status; E78.5 Hyperlipidemia, unspecified; I73.9 Peripheral vascular disease, unspecified; M54.30 Sciatica, unspecified side; F11.20 Opioid dependence, uncomplicated; R59.1 Generalized enlarged lymph nodes; L03.115 Cellulitis of right lower limb; K74.60 Unspecified cirrhosis of liver; K59.00 Constipation, unspecified; D69.6 Thrombocytopenia, unspecified; G62.9 Polyneuropathy, unspecified; L97.818 Non-pressure chronic ulcer of other part of right lower leg with other specified severity; B95.2 Enterococcus as the cause of diseases classified elsewhere; B96.4 Proteus (mirabilis) (morganii) as the cause of diseases classified elsewhere; Y83.8 Other surgical procedures as the cause of abnormal reaction of the patient, or of later complication, without mention of misadventure at the time of the procedure; Z89.422 Acquired absence of other left toe(s); Z89.421 Acquired absence of other right toe(s)
CPT/HCPCS: 36415; 73630-TC-RT-FY; 73660-TC-FY; 80048; 80053; 83735; 84100; 85025; 85027; 85610; 85651; 85730; 86140; 86850; 86900; 86901; 87070; 87186; 87205; 93005; 93010; 93971-TC; 97116-GP; 97161-GP; 99285-25; C9803; G0463-25; G0480; U0003; U0005

== ENCOUNTER 2021-11-18 04:09 | Day surgery (SDC) | payer OTHER ==
[2021-11-12 12:43] VITALS: BMI 33.0
[2021-11-18] MEDS ORDERED: LIDOCAINE HCL 1%, 10 MG/ML (20ML VIAL) ONE (11:06)
[2021-11-18] MEDS ORDERED: HEPARIN NA (PORCINE) 5,000 UNITS/ML 1ML VIAL ONE (11:06)
[2021-11-18] MEDS ORDERED: LIDOCAINE HCL 1%, 10 MG/ML (20ML VIAL) NR ONE ×3 (12:14→13:53)
[2021-11-18] MEDS ORDERED: HEPARIN NA (PORCINE) 5,000 UNITS/ML 1ML VIAL SQ ONE ×2 (12:15→13:53)
[2021-11-18] MEDS ORDERED: MIDAZOLAM HCL 2 MG/2 ML SINGLE DOSE VIAL ONE (13:28)
[2021-11-18] MEDS ORDERED: KETAMINE HCL 200 MG/20 ML VIAL ONE (13:28)
[2021-11-18] MEDS ORDERED: GLYCOPYRROLATE 0.2 MG/1 ML VIAL ONE (13:42)
[2021-11-18] MEDS ORDERED: ceFAZolin SODIUM 1 GM VIAL IVPB ONE (13:50)
[2021-11-18] MEDS ORDERED: ONDANSETRON 4 MG/2 ML VIAL IVPUSH PRN (14:23)
[2021-11-18] MEDS ORDERED: LACTATED RINGERS SOLUTION 1,000 ML IV SCH (14:30)
[2021-11-18 17:20] VITALS: TEMP 98.6
[2021-11-18 17:25] VITALS: BP 124/65; PULSE 59
== END 2021-11-18 18:15 | disposition home or self-care (01) ==
LOC: JASU-SURG 04:09
PROVIDERS: ATTEND Surgery Vascular Surgery
PROC: B41DYZZ Fluoroscopy of Aorta and Bilateral Lower Extremity Arteries using Other Contrast (ICD-10-PCS; principal; 2021-11-18 12:00)
DX: E11.621 Type 2 diabetes mellitus with foot ulcer (principal); L97.529 Non-pressure chronic ulcer of other part of left foot with unspecified severity; I10 Essential (primary) hypertension; F17.210 Nicotine dependence, cigarettes, uncomplicated; Z21 Asymptomatic human immunodeficiency virus [HIV] infection status
CPT/HCPCS: 76000-TC-FY; 94760; J1644

== ENCOUNTER 2021-11-30 04:11 | Inpatient (IN) | payer OTHER ==
[2021-11-29 14:43] VITALS: BMI 32.5
[2021-11-30] MEDS ORDERED: LIDOCAINE HCL 2% (20ML MULTI-DOSE VIAL) ONE (12:20)
[2021-11-30] MEDS ORDERED: GENTAMICIN SO4 80 MG/2 ML VIAL ONE (12:21)
[2021-11-30] MEDS ORDERED: MIDAZOLAM HCL 2 MG/2 ML SINGLE DOSE VIAL ONE (13:24)
[2021-11-30] MEDS ORDERED: PROPOFOL 20 ML ONE ×3 (13:24→14:29)
[2021-11-30] MEDS ORDERED: VANCOMYCIN 1,000 MG VIAL (RESTRICTED TO ID ONLY) ONE (14:12)
[2021-11-30] MEDS ORDERED: VANCOMYCIN 1 GM in NS (PRE-DOCKED) 1,000 MG/250 ML IVPB ONE (14:15)
[2021-11-30] MEDS ORDERED: ONDANSETRON 4 MG/2 ML VIAL IVPUSH PRN (15:25)
[2021-11-30] MEDS ORDERED: LACTATED RINGERS SOLUTION 1,000 ML IV SCH (15:30)
[2021-11-30] MEDS ORDERED: NICOTINE POLACRILEX 4 MG GUM BUC PRN (15:55)
[2021-11-30 16:39] LABS: HEMATOCRIT 36.1 % (35.4-49); HEMOGLOBIN 11.6 GM/dL (11.7-16.9); MCH 28.5 pg (25.7-33.7); MCHC 32.1 g/dl (32.0-35.9); MEAN PLT VOLUME 8.6 fl (7.5-11.1); PLATELET COUNT 118 10^3/uL (134-434); RBC 4.05 M/mm3 (4.00-5.60); RDW 14.5 % (11.9-15.9); WHITE BLOOD COUNT 4.2 K/mm3 (4.0-10.0)
[2021-12-01] MEDS ORDERED: methaDONE HCL 40 MG DISPERSABLE TABLET PO SCH (06:00)
[2021-12-01] MEDS ORDERED: methaDONE HCL 10 MG TABLET ONE (07:02)
[2021-12-01] MEDS ORDERED: methaDONE HCL 40 MG DISPERSABLE TABLET ONE (07:02)
[2021-12-01] MEDS: methaDONE 40 MG, methaDONE 30 MG PO SCH (07:03)
[2021-12-01 09:47] LABS: HEMATOCRIT 36.8 % (35.4-49); HEMOGLOBIN 11.8 GM/dL (11.7-16.9); MCH 28.4 pg (25.7-33.7); MEAN CELL VOLUME 88.9 fl (80-96); MEAN PLT VOLUME 8.5 fl (7.5-11.1); PLATELET COUNT 118 10^3/uL (134-434); RBC 4.14 M/mm3 (4.00-5.60); RDW 14.8 % (11.9-15.9); WHITE BLOOD COUNT 4.7 K/mm3 (4.0-10.0)
[2021-12-01 09:52] LABS: INR 1.22 (0.83-1.09); PROTHROMBIN TIME (PATIENT) 14.1 SEC (9.7-13.0)
[2021-12-01] MEDS: EMTRICITAB/RILPIVIRI/TENOF ALA (ODEFSEY) TABLET PO SCH (10:06)
[2021-12-01 10:13] LABS: CALCIUM 8.5 mg/dL (8.5-10.1)
[2021-12-01 10:14] LABS: BLOOD UREA NITROGEN 10.2 mg/dL (7-18)
[2021-12-01 10:17] LABS: CREATININE 0.8 mg/dL (0.55-1.3)
[2021-12-01 10:18] LABS: BILIRUBIN,TOTAL 0.8 mg/dL (0.2-1); TOT PROT 8.2 g/dl (6.4-8.2)
[2021-12-01] MEDS: CEFAZOLIN SODIUM 2 GM in DEXTROSE 5%-WATER 100 ML IVPB SCH (17:38)
[2021-12-01] MEDS: amLODIPine BESYLATE 5 MG TABLET (FP) PO SCH (18:53)
[2021-12-01] MEDS: MIRTAZAPINE 15 MG TABLET (FP) PO SCH (21:10)
[2021-12-02] MEDS: CEFAZOLIN SODIUM 2 GM in DEXTROSE 5%-WATER 100 ML IVPB SCH ×3 (00:23→16:38)
[2021-12-02] MEDS ORDERED: methaDONE HCL 40 MG DISPERSABLE TABLET ONE (05:32)
[2021-12-02] MEDS ORDERED: methaDONE HCL 10 MG TABLET ONE (05:33)
[2021-12-02] MEDS: methaDONE 40 MG, methaDONE 30 MG PO SCH (05:37)
[2021-12-02] MEDS: EMTRICITAB/RILPIVIRI/TENOF ALA (ODEFSEY) TABLET PO SCH (09:22)
[2021-12-02] MEDS: amLODIPine BESYLATE 5 MG TABLET (FP) PO SCH (09:22)
[2021-12-02] MEDS: MIRTAZAPINE 15 MG TABLET (FP) PO SCH (21:10)
[2021-12-02] MEDS: HEPARIN NA (PORCINE) 5,000 UNITS/ML 1ML VIAL SQ SCH (21:11)
[2021-12-03] MEDS: CEFAZOLIN SODIUM 2 GM in DEXTROSE 5%-WATER 100 ML IVPB SCH ×3 (01:30→17:05)
[2021-12-03] MEDS ORDERED: methaDONE HCL 40 MG DISPERSABLE TABLET ONE (05:34)
[2021-12-03] MEDS ORDERED: methaDONE HCL 10 MG TABLET ONE (05:35)
[2021-12-03] MEDS: methaDONE 40 MG, methaDONE 30 MG PO SCH (06:00)
[2021-12-03] MEDS: HEPARIN NA (PORCINE) 5,000 UNITS/ML 1ML VIAL SQ SCH ×3 (06:01→21:07)
[2021-12-03] MEDS: EMTRICITAB/RILPIVIRI/TENOF ALA (ODEFSEY) TABLET PO SCH (09:04)
[2021-12-03] MEDS: amLODIPine BESYLATE 5 MG TABLET (FP) PO SCH (09:04)
[2021-12-03 10:44] LABS: BASO % 0.3 % (0-2.0); EOS % 4.3 % (0-4.5); HEMATOCRIT 35.2 % (35.4-49); HEMOGLOBIN 11.4 GM/dL (11.7-16.9); LYMPH % 25.4 % (8-40); MCH 28.5 pg (25.7-33.7); MCHC 32.4 g/dl (32.0-35.9); MEAN PLT VOLUME 8.7 fl (7.5-11.1); MONO % 11.1 % (3.8-10.2); NEUT % 58.9 % (42.8-82.8); PLATELET COUNT 122 10^3/uL (134-434); RDW 14.9 % (11.9-15.9); WHITE BLOOD COUNT 5.1 K/mm3 (4.0-10.0)
[2021-12-03 11:01] LABS: CALCIUM 8.3 mg/dL (8.5-10.1)
[2021-12-03 11:02] LABS: ALBUMIN 2.9 g/dl (3.4-5.0); BLOOD UREA NITROGEN 12.3 mg/dL (7-18); MAGNESIUM 2.2 mg/dL (1.8-2.4)
[2021-12-03 11:05] LABS: CREATININE 0.9 mg/dL (0.55-1.3)
[2021-12-03 11:06] LABS: BILIRUBIN,TOTAL 0.7 mg/dL (0.2-1); TOT PROT 8.3 g/dl (6.4-8.2)
[2021-12-03] MEDS ORDERED: LACTULOSE 20 GM/30 ML UDC (FOR ORAL USE ONLY) PO PRN (13:28)
[2021-12-03] MEDS: oxyCODONE HCL 5 MG TABLET PO PRN ×2 (15:46→21:27)
[2021-12-03] MEDS: MIRTAZAPINE 15 MG TABLET (FP) PO SCH (21:07)
[2021-12-04] MEDS: CEFAZOLIN SODIUM 2 GM in DEXTROSE 5%-WATER 100 ML IVPB SCH ×3 (00:30→17:34)
[2021-12-04] MEDS ORDERED: methaDONE HCL 40 MG DISPERSABLE TABLET ONE (06:14)
[2021-12-04] MEDS ORDERED: methaDONE HCL 10 MG TABLET ONE (06:14)
[2021-12-04] MEDS: HEPARIN NA (PORCINE) 5,000 UNITS/ML 1ML VIAL SQ SCH ×4 (06:22→21:30)
[2021-12-04] MEDS: methaDONE 40 MG, methaDONE 30 MG PO SCH (06:22)
[2021-12-04] MEDS: EMTRICITAB/RILPIVIRI/TENOF ALA (ODEFSEY) TABLET PO SCH (09:21)
[2021-12-04] MEDS: amLODIPine BESYLATE 5 MG TABLET (FP) PO SCH (09:21)
[2021-12-04] MEDS: oxyCODONE HCL 5 MG TABLET PO PRN ×4 (09:24→21:26)
[2021-12-04 10:03] LABS: BASO % 0.4 % (0-2.0); EOS % 6.4 % (0-4.5); HEMATOCRIT 35.4 % (35.4-49); HEMOGLOBIN 11.6 GM/dL (11.7-16.9); LYMPH % 32.7 % (8-40); MCH 28.9 pg (25.7-33.7); MCHC 32.8 g/dl (32.0-35.9); MEAN CELL VOLUME 88.1 fl (80-96); MEAN PLT VOLUME 8.9 fl (7.5-11.1); MONO % 12.9 % (3.8-10.2); NEUT % 47.6 % (42.8-82.8); PLATELET COUNT 152 10^3/uL (134-434); RBC 4.01 M/mm3 (4.00-5.60); RDW 14.3 % (11.9-15.9); WHITE BLOOD COUNT 5.2 K/mm3 (4.0-10.0)
[2021-12-04 10:09] LABS: CALCIUM 8.7 mg/dL (8.5-10.1)
[2021-12-04 10:10] LABS: BLOOD UREA NITROGEN 12.4 mg/dL (7-18); MAGNESIUM 2.3 mg/dL (1.8-2.4)
[2021-12-04 10:13] LABS: CREATININE 0.8 mg/dL (0.55-1.3)
[2021-12-04 10:14] LABS: BILIRUBIN,TOTAL 0.7 mg/dL (0.2-1)
[2021-12-04 10:15] LABS: TOT PROT 8.7 g/dl (6.4-8.2)
[2021-12-04] MEDS: MINERAL OIL/PET HY-PHL TOPICAL OINTMENT 454 GM JAR TP SCH ×2 (11:14→21:32)
[2021-12-04] MEDS: VANCOMYCIN/WATER FOR INJ (PEG) 1,000 MG/200 ML BAG IVPB SCH (18:10)
[2021-12-04] MEDS: MIRTAZAPINE 15 MG TABLET (FP) PO SCH (21:31)
[2021-12-05] MEDS: CEFAZOLIN SODIUM 2 GM in DEXTROSE 5%-WATER 100 ML IVPB SCH ×3 (00:42→17:18)
[2021-12-05] MEDS: VANCOMYCIN/WATER FOR INJ (PEG) 1,000 MG/200 ML BAG IVPB SCH ×2 (02:25→13:43)
[2021-12-05] MEDS ORDERED: methaDONE HCL 40 MG DISPERSABLE TABLET ONE (05:54)
[2021-12-05] MEDS ORDERED: methaDONE HCL 10 MG TABLET ONE (05:55)
[2021-12-05] MEDS: methaDONE 40 MG, methaDONE 30 MG PO SCH (05:57)
[2021-12-05] MEDS: HEPARIN NA (PORCINE) 5,000 UNITS/ML 1ML VIAL SQ SCH ×3 (06:02→21:45)
[2021-12-05] MEDS: amLODIPine BESYLATE 5 MG TABLET (FP) PO SCH (09:54)
[2021-12-05] MEDS: oxyCODONE HCL 5 MG TABLET PO PRN ×2 (09:56→17:54)
[2021-12-05] MEDS: EMTRICITAB/RILPIVIRI/TENOF ALA (ODEFSEY) TABLET PO SCH (09:56)
[2021-12-05] MEDS: MINERAL OIL/PET HY-PHL TOPICAL OINTMENT 454 GM JAR TP SCH ×2 (09:58→21:45)
[2021-12-05] MEDS: MIRTAZAPINE 15 MG TABLET (FP) PO SCH (21:45)
[2021-12-06] MEDS: CEFAZOLIN SODIUM 2 GM in DEXTROSE 5%-WATER 100 ML IVPB SCH ×3 (01:12→18:08)
[2021-12-06] MEDS: VANCOMYCIN/WATER FOR INJ (PEG) 1,000 MG/200 ML BAG IVPB SCH ×2 (02:12→15:38)
[2021-12-06] MEDS: oxyCODONE HCL 5 MG TABLET PO PRN ×3 (02:15→21:17)
[2021-12-06] MEDS ORDERED: methaDONE HCL 40 MG DISPERSABLE TABLET ONE (05:46)
[2021-12-06] MEDS ORDERED: methaDONE HCL 10 MG TABLET ONE (05:47)
[2021-12-06] MEDS: methaDONE 40 MG, methaDONE 30 MG PO SCH (05:54)
[2021-12-06] MEDS: HEPARIN NA (PORCINE) 5,000 UNITS/ML 1ML VIAL SQ SCH ×3 (05:56→21:19)
[2021-12-06] MEDS: amLODIPine BESYLATE 5 MG TABLET (FP) PO SCH (09:15)
[2021-12-06] MEDS: EMTRICITAB/RILPIVIRI/TENOF ALA (ODEFSEY) TABLET PO SCH (09:16)
[2021-12-06 11:02] LABS: BASO % 0.4 % (0-2.0); EOS % 6.3 % (0-4.5); HEMATOCRIT 36.5 % (35.4-49); HEMOGLOBIN 11.6 GM/dL (11.7-16.9); LYMPH % 31.6 % (8-40); MCH 28.4 pg (25.7-33.7); MCHC 31.9 g/dl (32.0-35.9); MEAN PLT VOLUME 8.2 fl (7.5-11.1); MONO % 13.5 % (3.8-10.2); NEUT % 48.2 % (42.8-82.8); PLATELET COUNT 136 10^3/uL (134-434); RDW 14.7 % (11.9-15.9); WHITE BLOOD COUNT 3.4 K/mm3 (4.0-10.0)
[2021-12-06 11:20] LABS: CALCIUM 8.7 mg/dL (8.5-10.1)
[2021-12-06 11:21] LABS: ALBUMIN 2.7 g/dl (3.4-5.0); MAGNESIUM 2.1 mg/dL (1.8-2.4)
[2021-12-06 11:24] LABS: BILIRUBIN,TOTAL 0.3 mg/dL (0.2-1); CREATININE 0.9 mg/dL (0.55-1.3)
[2021-12-06 11:25] LABS: TOT PROT 8.1 g/dl (6.4-8.2)
[2021-12-06] MEDS: MINERAL OIL/PET HY-PHL TOPICAL OINTMENT 454 GM JAR TP SCH ×2 (15:36→22:28)
[2021-12-06] MEDS: MIRTAZAPINE 15 MG TABLET (FP) PO SCH (21:19)
[2021-12-07] MEDS: CEFAZOLIN SODIUM 2 GM in DEXTROSE 5%-WATER 100 ML IVPB SCH ×2 (01:27→09:14)
[2021-12-07] MEDS: VANCOMYCIN/WATER FOR INJ (PEG) 1,000 MG/200 ML BAG IVPB SCH ×2 (02:32→14:03)
[2021-12-07] MEDS ORDERED: methaDONE HCL 10 MG TABLET ONE (05:18)
[2021-12-07] MEDS ORDERED: methaDONE HCL 40 MG DISPERSABLE TABLET ONE (05:18)
[2021-12-07] MEDS: methaDONE 40 MG, methaDONE 30 MG PO SCH (05:52)
[2021-12-07] MEDS: HEPARIN NA (PORCINE) 5,000 UNITS/ML 1ML VIAL SQ SCH ×3 (05:53→21:21)
[2021-12-07] MEDS: MINERAL OIL/PET HY-PHL TOPICAL OINTMENT 454 GM JAR TP SCH ×2 (09:15→21:26)
[2021-12-07] MEDS: oxyCODONE HCL 5 MG TABLET PO PRN ×3 (09:15→22:51)
[2021-12-07] MEDS: amLODIPine BESYLATE 5 MG TABLET (FP) PO SCH (09:15)
[2021-12-07] MEDS: EMTRICITAB/RILPIVIRI/TENOF ALA (ODEFSEY) TABLET PO SCH (09:15)
[2021-12-07 10:06] LABS: BASO % 0.4 % (0-2.0); EOS % 4.8 % (0-4.5); HEMATOCRIT 37.3 % (35.4-49); HEMOGLOBIN 12.1 GM/dL (11.7-16.9); LYMPH % 35.8 % (8-40); MCH 28.8 pg (25.7-33.7); MCHC 32.5 g/dl (32.0-35.9); MEAN CELL VOLUME 88.7 fl (80-96); MEAN PLT VOLUME 8.7 fl (7.5-11.1); MONO % 13.2 % (3.8-10.2); NEUT % 45.8 % (42.8-82.8); PLATELET COUNT 161 10^3/uL (134-434); RBC 4.21 M/mm3 (4.00-5.60); RDW 14.7 % (11.9-15.9); WHITE BLOOD COUNT 4.1 K/mm3 (4.0-10.0)
[2021-12-07 10:37] LABS: ALBUMIN 2.8 g/dl (3.4-5.0); BLOOD UREA NITROGEN 12.9 mg/dL (7-18); MAGNESIUM 2.1 mg/dL (1.8-2.4)
[2021-12-07 10:42] LABS: BILIRUBIN,TOTAL 0.4 mg/dL (0.2-1); TOT PROT 8.4 g/dl (6.4-8.2)
[2021-12-07] MEDS ORDERED: DEXTROSE 5%-WATER 100 ML IVPB ONE (16:46)
[2021-12-07] MEDS: CEFTRIAXONE 2 GM in DEXTROSE 5%-WATER 2 GM/100 ML BAG IVPB SCH (16:48)
[2021-12-07] MEDS: MIRTAZAPINE 15 MG TABLET (FP) PO SCH (21:21)
[2021-12-08] MEDS ORDERED: methaDONE HCL 40 MG DISPERSABLE TABLET ONE (05:54)
[2021-12-08] MEDS ORDERED: methaDONE HCL 10 MG TABLET ONE (05:54)
[2021-12-08] MEDS: methaDONE 40 MG, methaDONE 30 MG PO SCH (05:56)
[2021-12-08] MEDS: HEPARIN NA (PORCINE) 5,000 UNITS/ML 1ML VIAL SQ SCH ×2 (05:57→14:06)
[2021-12-08] MEDS ORDERED: DEXTROSE 5%-WATER 100 ML IVPB ONE (08:20)
[2021-12-08] MEDS: oxyCODONE HCL 5 MG TABLET PO PRN ×2 (08:30→17:05)
[2021-12-08] MEDS: MINERAL OIL/PET HY-PHL TOPICAL OINTMENT 454 GM JAR TP SCH (09:13)
[2021-12-08] MEDS: EMTRICITAB/RILPIVIRI/TENOF ALA (ODEFSEY) TABLET PO SCH (09:13)
[2021-12-08] MEDS: amLODIPine BESYLATE 5 MG TABLET (FP) PO SCH (09:13)
[2021-12-08] MEDS: CEFTRIAXONE 2 GM in DEXTROSE 5%-WATER 2 GM/100 ML BAG IVPB SCH (09:13)
[2021-12-08 11:40] VITALS: RESP 20
[2021-12-08 14:25] VITALS: PULSE 67; TEMP 98.7
[2021-12-08 17:37] VITALS: BP 122/56
== END 2021-12-08 19:01 | disposition home health service (06) | DRG 314 ==
LOC: JASUSAT 04:11 → SUATTDRO 04:11 → J6S 16:39 → JASUSAT 16:39 → J6S 16:40 → UNDOADMIN 12-01 13:17 → J6S 12-01 13:17 → JASUSAT 12-01 13:21 → J6S 12-01 13:27 → UNDOADMIN 12-01 13:33
PROVIDERS: ADMIT Internal Medicine; ATTEND Nurse Practitioner Acute Care
PROC: 0Y6Q0Z0 Detachment at Left 1st Toe, Complete, Open Approach (ICD-10-PCS; principal; 2021-11-30 12:30)
DX: M86.8X7 Other osteomyelitis, ankle and foot (principal); K74.60 Unspecified cirrhosis of liver; F11.20 Opioid dependence, uncomplicated; E78.5 Hyperlipidemia, unspecified; I10 Essential (primary) hypertension; Z21 Asymptomatic human immunodeficiency virus [HIV] infection status; F41.8 Other specified anxiety disorders; M54.30 Sciatica, unspecified side; I73.89 Other specified peripheral vascular diseases; K59.00 Constipation, unspecified; Z88.0 Allergy status to penicillin; Z79.2 Long term (current) use of antibiotics
CPT/HCPCS: 36415; 73630-TC-LT; 80053; 83735; 85025; 85027; 85610; 85651; 86140; 87070; 87075; 87186; 87205; 88305-TC; 88311-TC; 94010; 94760; C9803-CS; G0480; J1644; U0003; U0005

== ENCOUNTER 2021-12-09 09:45 | Day surgery (SDC) | payer OTHER ==
[2021-12-09 10:19] VITALS: BP 130/70; PULSE 79; RESP 18; TEMP 100
[2021-12-09] MEDS ORDERED: DEXTROSE 5%-WATER 100 ML IVPB ONE (10:20)
[2021-12-09] MEDS ORDERED: CEFTRIAXONE 2 GM in DEXTROSE 5%-WATER 100 ML IVPB ONE (10:30)
== END 2021-12-09 11:40 | disposition home or self-care (01) ==
LOC: FINFUSION 09:45 → FM/S 09:50 → FINFUSION 11:40
PROVIDERS: ATTEND Internal Medicine
DX: M86.8X8 Other osteomyelitis, other site (principal)
CPT/HCPCS: 96365

== ENCOUNTER 2021-12-10 11:07 | Day surgery (SDC) | payer OTHER ==
[2021-12-10] MEDS ORDERED: DEXTROSE 5%-WATER 100 ML IVPB ONE (11:25)
[2021-12-10] MEDS ORDERED: CEFTRIAXONE 2 GM in DEXTROSE 5%-WATER 100 ML IVPB ONE (11:30)
[2021-12-10 12:30] VITALS: BP 144/50; PULSE 74; RESP 18; TEMP 98.3
== END 2021-12-10 13:02 | disposition home or self-care (01) ==
LOC: FINFUSION 11:07 → FM/S 11:09 → FINFUSION 13:02
PROVIDERS: ATTEND Internal Medicine
DX: M86.8X8 Other osteomyelitis, other site (principal)
CPT/HCPCS: 96365

== ENCOUNTER 2021-12-11 10:45 | Day surgery (SDC) | payer OTHER ==
[2021-12-11] MEDS ORDERED: cefTRIAXone 2 GM/100 ML BAG (PRE-DOCKED) IVPB SCH (11:15)
[2021-12-11 12:28] VITALS: BP 120/65; PULSE 66; RESP 20; TEMP 98
== END 2021-12-11 12:00 | disposition home or self-care (01) ==
LOC: FINFUSION 10:45 → FM/S 10:49 → FINFUSION 12:00
PROVIDERS: ATTEND Internal Medicine
DX: M86.8X8 Other osteomyelitis, other site (principal)
CPT/HCPCS: 96365

== ENCOUNTER 2021-12-12 10:27 | Day surgery (SDC) | payer OTHER ==
[2021-12-12] MEDS ORDERED: DEXTROSE 5%-WATER 100 ML IVPB ONE (11:00)
[2021-12-12] MEDS ORDERED: CEFTRIAXONE 2 GM in DEXTROSE 5%-WATER 100 ML IVPB ONE (11:15)
[2021-12-12 11:58] VITALS: BP 128/70; PULSE 81; RESP 20; TEMP 98.5
== END 2021-12-12 11:58 | disposition home or self-care (01) ==
LOC: FINFUSION 10:27 → FM/S 10:32 → FINFUSION 11:58
PROVIDERS: ATTEND Internal Medicine
DX: M86.8X8 Other osteomyelitis, other site (principal)
CPT/HCPCS: 96365

== ENCOUNTER 2021-12-13 10:40 | Day surgery (SDC) | payer OTHER ==
[2021-12-13] MEDS ORDERED: DEXTROSE 5%-WATER 100 ML IVPB ONE (11:00)
[2021-12-13] MEDS ORDERED: CEFTRIAXONE 2 GM in DEXTROSE 5%-WATER 100 ML IVPB ONE (11:00)
[2021-12-13 11:35] VITALS: BP 115/70; PULSE 71; RESP 18; TEMP 98.9
== END 2021-12-13 11:48 | disposition home or self-care (01) ==
LOC: FINFUSION 10:40 → FM/S 10:42 → FINFUSION 11:48
PROVIDERS: ATTEND Internal Medicine
DX: M86.8X8 Other osteomyelitis, other site (principal)
CPT/HCPCS: 96365

== ENCOUNTER 2021-12-14 11:51 | Day surgery (SDC) | payer OTHER ==
[2021-12-14] MEDS ORDERED: CEFTRIAXONE 2 GM in DEXTROSE 5%-WATER 100 ML IVPB ONE (12:30)
[2021-12-14 13:21] VITALS: BP 135/70; PULSE 80; RESP 20; TEMP 98.2
[2021-12-14 13:23] LABS: HEMOGLOBIN 11.3 G/dL (11.7-16.9); MCH 29.5 pg (25.7-33.7); MCHC 33.4 g/dl (32.0-35.9); MEAN CELL VOLUME 88.4 fl (80-96); MEAN PLT VOLUME 8.1 fl (7.5-11.1); RBC 3.85 10^6/uL (4.00-5.60); RDW 15.2 % (11.9-15.9); WHITE BLOOD COUNT 3.8 10^3/uL (4.0-10.8)
[2021-12-14 13:45] LABS: ALBUMIN 2.8 g/dl (3.4-5.0); BILIRUBIN,TOTAL 0.5 mg/dl (0.2-1); CALCIUM 8.5 mg/dl (8.5-10); CREATININE 0.8 mg/dl (0.55-1.3); TOT PROT 7.6 g/dl (6.4-8.2)
[2021-12-14 14:18] LABS: ERYTHROCYTE SEDIMENTATION RATE 70 mm/hr (0-20)
== END 2021-12-14 13:24 | disposition home or self-care (01) ==
LOC: FINFUSION 11:51 → FM/S 11:56 → FINFUSION 13:24
PROVIDERS: ATTEND Internal Medicine
DX: M86.8X8 Other osteomyelitis, other site (principal)
CPT/HCPCS: 36415; 80053; 85027; 85651; 96365

== ENCOUNTER 2021-12-15 10:38 | Day surgery (SDC) | payer OTHER ==
[2021-12-15] MEDS ORDERED: CEFTRIAXONE 2 GM in DEXTROSE 5%-WATER 100 ML IVPB ONE (11:00)
[2021-12-15 11:18] VITALS: BP 119/69; RESP 17; TEMP 97.8
[2021-12-15 11:50] VITALS: PULSE 67
== END 2021-12-15 12:00 | disposition home or self-care (01) ==
LOC: FM/S 10:38 → FINFUSION 10:38
PROVIDERS: ATTEND Internal Medicine
DX: M86.8X8 Other osteomyelitis, other site (principal)
CPT/HCPCS: 96365

== ENCOUNTER 2021-12-16 10:18 | Day surgery (SDC) | payer OTHER ==
[2021-12-16] MEDS ORDERED: CEFTRIAXONE 2 GM in DEXTROSE 5%-WATER 100 ML IVPB ONE (11:00)
[2021-12-16 11:45] VITALS: BP 118/74; PULSE 75; RESP 18; TEMP 98.8
== END 2021-12-16 11:45 | disposition home or self-care (01) ==
LOC: FINFUSION 10:18 → FM/S 10:19 → FINFUSION 11:45
PROVIDERS: ATTEND Internal Medicine
DX: M86.8X8 Other osteomyelitis, other site (principal)
CPT/HCPCS: 96365

== ENCOUNTER 2021-12-17 11:05 | Day surgery (SDC) | payer OTHER ==
[2021-12-17] MEDS ORDERED: CEFTRIAXONE 2 GM in DEXTROSE 5%-WATER 100 ML IVPB ONE (11:30)
[2021-12-17 12:21] VITALS: BP 109/47; PULSE 65; RESP 18; TEMP 98.7
== END 2021-12-17 11:30 | disposition home or self-care (01) ==
LOC: FINFUSION 11:05 → FM/S 11:06 → FINFUSION 11:30
PROVIDERS: ATTEND Internal Medicine
DX: M86.8X8 Other osteomyelitis, other site (principal)
CPT/HCPCS: 96365

== ENCOUNTER 2021-12-18 10:27 | Day surgery (SDC) | payer OTHER ==
[2021-12-18] MEDS ORDERED: cefTRIAXone 2 GM/100 ML BAG (PRE-DOCKED) IVPB SCH (10:45)
[2021-12-18 11:33] VITALS: BP 108/81; PULSE 77; RESP 16; TEMP 99
== END 2021-12-18 11:42 | disposition home or self-care (01) ==
LOC: FINFUSION 10:27 → FM/S 10:30 → FINFUSION 11:42
PROVIDERS: ATTEND Internal Medicine
DX: M86.8X8 Other osteomyelitis, other site (principal)
CPT/HCPCS: 96365

== ENCOUNTER 2021-12-19 10:28 | Day surgery (SDC) | payer OTHER ==
[2021-12-19] MEDS ORDERED: CEFTRIAXONE 2 GM in DEXTROSE 5%-WATER 100 ML IVPB ONE (11:00)
[2021-12-19 11:42] VITALS: BP 108/61; PULSE 75; RESP 18; TEMP 98.7
== END 2021-12-19 11:41 | disposition home or self-care (01) ==
LOC: FINFUSION 10:28 → FM/S 10:34 → FINFUSION 11:41
PROVIDERS: ATTEND Internal Medicine
DX: M86.8X8 Other osteomyelitis, other site (principal)
CPT/HCPCS: 96365

== ENCOUNTER 2021-12-20 08:28 | Day surgery (SDC) | payer OTHER ==
[2021-12-20] MEDS ORDERED: CEFTRIAXONE 2 GM in DEXTROSE 5%-WATER 100 ML IVPB ONE (08:45)
[2021-12-20 10:13] VITALS: BP 115/70; PULSE 70; RESP 18; TEMP 98.9
[2021-12-20 10:24] LABS: HEMATOCRIT 34.6 % (35.4-49); HEMOGLOBIN 11.4 G/dL (11.7-16.9); MCH 29.4 pg (25.7-33.7); MCHC 32.8 g/dl (32.0-35.9); MEAN CELL VOLUME 89.6 fl (80-96); MEAN PLT VOLUME 8.4 fl (7.5-11.1); PLATELET COUNT 144.8 10^3/uL (134-434); RBC 3.86 10^6/uL (4.00-5.60); RDW 15.1 % (11.9-15.9); WHITE BLOOD COUNT 3.7 10^3/uL (4.0-10.8)
[2021-12-20 10:40] LABS: ALBUMIN 3.1 g/dl (3.4-5.0); BILIRUBIN,TOTAL 0.4 mg/dl (0.2-1); CALCIUM 8.8 mg/dl (8.5-10); CREATININE 0.9 mg/dl (0.55-1.3); TOT PROT 8.2 g/dl (6.4-8.2)
[2021-12-20 11:02] LABS: ERYTHROCYTE SEDIMENTATION RATE 70 mm/hr (0-20)
== END 2021-12-20 10:34 | disposition home or self-care (01) ==
LOC: FINFUSION 08:28 → FM/S 08:31 → FINFUSION 10:34
PROVIDERS: ATTEND Internal Medicine
DX: M86.8X8 Other osteomyelitis, other site (principal)
CPT/HCPCS: 36415; 80053; 85027; 85651; 96365

== ENCOUNTER 2021-12-21 11:40 | Day surgery (SDC) | payer OTHER ==
[2021-12-21 12:51] VITALS: BP 106/52; PULSE 57; RESP 16; TEMP 98.9
[2021-12-21] MEDS ORDERED: CEFTRIAXONE 2 GM in DEXTROSE 5%-WATER 100 ML IVPB ONE (13:00)
== END 2021-12-21 13:00 | disposition home or self-care (01) ==
LOC: FINFUSION 11:40 → FM/S 11:43 → FINFUSION 13:00
PROVIDERS: ATTEND Internal Medicine
DX: M86.8X8 Other osteomyelitis, other site (principal)
CPT/HCPCS: 96365

== ENCOUNTER 2021-12-22 10:22 | Day surgery (SDC) | payer OTHER ==
[2021-12-22] MEDS ORDERED: CEFTRIAXONE 2 GM in DEXTROSE 5%-WATER 100 ML IVPB ONE (11:00)
[2021-12-22 11:51] VITALS: BP 104/48; PULSE 68; RESP 16; TEMP 98.6
== END 2021-12-22 12:03 | disposition home or self-care (01) ==
LOC: FINFUSION 10:22 → FM/S 10:23 → FINFUSION 12:03
PROVIDERS: ATTEND Internal Medicine
DX: M86.8X8 Other osteomyelitis, other site (principal)
CPT/HCPCS: 96365

== ENCOUNTER 2021-12-24 10:29 | Day surgery (SDC) | payer OTHER ==
[2021-12-24] MEDS ORDERED: CEFTRIAXONE 2 GM in DEXTROSE 5%-WATER 100 ML IVPB ONE (11:00)
[2021-12-24 11:05] VITALS: BP 115/70; RESP 18; TEMP 98.1
[2021-12-24 11:40] VITALS: PULSE 70
== END 2021-12-24 11:41 | disposition home or self-care (01) ==
LOC: FINFUSION 10:29 → FM/S 10:29 → FINFUSION 11:41
PROVIDERS: ATTEND Internal Medicine
DX: M86.9 Osteomyelitis, unspecified (principal)
CPT/HCPCS: 96365

== ENCOUNTER 2021-12-25 10:53 | Day surgery (SDC) | payer OTHER ==
[2021-12-25] MEDS ORDERED: cefTRIAXone 2 GM/100 ML BAG (PRE-DOCKED) IVPB SCH (11:15)
[2021-12-25 12:22] VITALS: BP 115/59; PULSE 60; RESP 18; TEMP 98.8
== END 2021-12-25 12:10 | disposition home or self-care (01) ==
LOC: FINFUSION 10:53 → FM/S 10:57 → FINFUSION 12:10
PROVIDERS: ATTEND Internal Medicine
DX: M86.9 Osteomyelitis, unspecified (principal)
CPT/HCPCS: 96365

== ENCOUNTER 2021-12-26 10:30 | Day surgery (SDC) | payer OTHER ==
[2021-12-26] MEDS ORDERED: CEFTRIAXONE 2 GM in DEXTROSE 5%-WATER 100 ML IVPB ONE (11:15)
[2021-12-26 11:47] VITALS: BP 125/68; PULSE 72; RESP 18; TEMP 98.5
== END 2021-12-26 12:23 | disposition home or self-care (01) ==
LOC: FINFUSION 10:30 → FM/S 10:35 → FINFUSION 12:23
PROVIDERS: ATTEND Internal Medicine
DX: M86.9 Osteomyelitis, unspecified (principal)
CPT/HCPCS: 96365

== ENCOUNTER 2021-12-27 08:35 | Day surgery (SDC) | payer OTHER ==
[2021-12-27 08:57] VITALS: RESP 18; TEMP 98.8
[2021-12-27] MEDS ORDERED: CEFTRIAXONE 2 GM in DEXTROSE 5%-WATER 100 ML IVPB ONE (09:00)
[2021-12-27 10:03] VITALS: BP 112/78; PULSE 55
== END 2021-12-27 10:03 | disposition home or self-care (01) ==
LOC: FINFUSION 08:35 → FM/S 08:38 → FINFUSION 10:03
PROVIDERS: ATTEND Internal Medicine
DX: M86.9 Osteomyelitis, unspecified (principal)
CPT/HCPCS: 96365

== ENCOUNTER 2021-12-28 11:35 | Day surgery (SDC) | payer OTHER ==
[2021-12-28 11:57] VITALS: RESP 18; TEMP 98
[2021-12-28] MEDS ORDERED: CEFTRIAXONE 2 GM in DEXTROSE 5%-WATER 100 ML IVPB ONE (12:00)
[2021-12-28 12:40] VITALS: BP 122/78; PULSE 68
== END 2021-12-28 12:41 | disposition home or self-care (01) ==
LOC: FINFUSION 11:35 → FM/S 11:38 → FINFUSION 12:41
PROVIDERS: ATTEND Internal Medicine
DX: M86.9 Osteomyelitis, unspecified (principal)
CPT/HCPCS: 96365

== ENCOUNTER 2021-12-29 10:48 | Day surgery (SDC) | payer OTHER ==
[2021-12-29] MEDS ORDERED: CEFTRIAXONE 2 GM in DEXTROSE 5%-WATER 100 ML IVPB ONE (13:00)
[2021-12-29 14:10] VITALS: BP 130/73; PULSE 56; RESP 18; TEMP 98.5
== END 2021-12-29 13:25 | disposition home or self-care (01) ==
LOC: FINFUSION 10:48 → FM/S 10:53 → FINFUSION 13:25
PROVIDERS: ATTEND Internal Medicine
DX: M86.9 Osteomyelitis, unspecified (principal)
CPT/HCPCS: 96365

== ENCOUNTER 2021-12-30 10:34 | Day surgery (SDC) | payer OTHER ==
[2021-12-30] MEDS ORDERED: CEFTRIAXONE 2 GM in DEXTROSE 5%-WATER 100 ML IVPB ONE (11:00)
[2021-12-30 14:17] VITALS: BP 125/70; PULSE 90; RESP 18; TEMP 99
== END 2021-12-30 12:00 | disposition home or self-care (01) ==
LOC: FINFUSION 10:34 → FM/S 10:35 → FINFUSION 12:00
PROVIDERS: ATTEND Internal Medicine
DX: M86.9 Osteomyelitis, unspecified (principal)
CPT/HCPCS: 96365

== ENCOUNTER 2021-12-31 10:44 | Day surgery (SDC) | payer OTHER ==
[2021-12-31] MEDS ORDERED: CEFTRIAXONE 2 GM in DEXTROSE 5%-WATER 100 ML IVPB ONE (11:30)
[2021-12-31 12:41] VITALS: BP 120/65; PULSE 80; RESP 18; TEMP 98.8
== END 2021-12-31 12:47 | disposition home or self-care (01) ==
LOC: FINFUSION 10:44 → FM/S 10:45 → FINFUSION 12:47
PROVIDERS: ATTEND Internal Medicine
DX: M86.9 Osteomyelitis, unspecified (principal)
CPT/HCPCS: 96365

== ENCOUNTER 2022-01-01 10:42 | Day surgery (SDC) | payer OTHER ==
[2022-01-01] MEDS ORDERED: cefTRIAXone 2 GM/100 ML BAG (PRE-DOCKED) IVPB SCH (11:00)
[2022-01-01 12:32] VITALS: BP 120/59; PULSE 63; RESP 16; TEMP 98.4
== END 2022-01-01 12:32 | disposition home or self-care (01) ==
LOC: FINFUSION 10:42 → FM/S 10:44 → FINFUSION 12:32
PROVIDERS: ATTEND Internal Medicine
DX: M86.9 Osteomyelitis, unspecified (principal)
CPT/HCPCS: 96365

== ENCOUNTER 2022-01-02 10:34 | Day surgery (SDC) | payer OTHER ==
[2022-01-02] MEDS ORDERED: CEFTRIAXONE 2 GM in DEXTROSE 5%-WATER 100 ML IVPB SCH (11:15)
[2022-01-02 11:25] VITALS: RESP 18
[2022-01-02 12:10] VITALS: BP 123/69; PULSE 92
== END 2022-01-02 12:15 | disposition home or self-care (01) ==
LOC: FINFUSION 10:34 → FM/S 10:41 → FINFUSION 12:15
PROVIDERS: ATTEND Internal Medicine
DX: M86.9 Osteomyelitis, unspecified (principal)
CPT/HCPCS: 96365

== ENCOUNTER 2022-01-03 09:25 | Day surgery (SDC) | payer OTHER ==
[2022-01-03] MEDS ORDERED: CEFTRIAXONE 2 GM in DEXTROSE 5%-WATER 100 ML IVPB SCH (10:45)
[2022-01-03 11:24] LABS: HEMATOCRIT 33.1 % (35.4-49); HEMOGLOBIN 11.1 G/dL (11.7-16.9); MCH 29.7 pg (25.7-33.7); MCHC 33.4 g/dl (32.0-35.9); MEAN CELL VOLUME 88.9 fl (80-96); MEAN PLT VOLUME 8.9 fl (7.5-11.1); PLATELET COUNT 116.6 10^3/uL (134-434); RBC 3.72 10^6/uL (4.00-5.60); RDW 15.7 % (11.9-15.9); WHITE BLOOD COUNT 3.5 10^3/uL (4.0-10.8)
[2022-01-03 11:46] VITALS: BP 130/65; PULSE 65; RESP 18; TEMP 98.2
[2022-01-03 12:15] LABS: ALBUMIN 3.1 g/dl (3.4-5.0); BILIRUBIN,TOTAL 0.7 mg/dl (0.2-1); CALCIUM 8.6 mg/dl (8.5-10); CREATININE 0.8 mg/dl (0.55-1.3); TOT PROT 7.7 g/dl (6.4-8.2)
[2022-01-03 12:25] LABS: ERYTHROCYTE SEDIMENTATION RATE 51 mm/hr (0-20)
== END 2022-01-03 11:40 | disposition home or self-care (01) ==
LOC: FINFUSION 09:25 → FM/S 09:31 → FINFUSION 11:40
PROVIDERS: ATTEND Internal Medicine
DX: M86.9 Osteomyelitis, unspecified (principal)
CPT/HCPCS: 36415; 80053; 85027; 85651; 96365

== ENCOUNTER 2022-01-04 10:40 | Day surgery (SDC) | payer OTHER ==
[2022-01-04] MEDS ORDERED: CEFTRIAXONE 2 GM in DEXTROSE 5%-WATER 100 ML IVPB ONE (11:00)
[2022-01-04 11:12] VITALS: RESP 18; TEMP 98.4
[2022-01-04 11:29] VITALS: BP 110/64; PULSE 60
== END 2022-01-04 11:31 | disposition home or self-care (01) ==
LOC: FINFUSION 10:40 → FM/S 10:41 → FINFUSION 11:31
PROVIDERS: ATTEND Internal Medicine
DX: M86.9 Osteomyelitis, unspecified (principal)
CPT/HCPCS: 96365

== ENCOUNTER 2022-01-05 10:57 | Day surgery (SDC) | payer OTHER ==
[2022-01-05] MEDS ORDERED: CEFTRIAXONE 2 GM in DEXTROSE 5%-WATER 100 ML IVPB ONE (11:15)
[2022-01-05 12:34] VITALS: BP 122/71; PULSE 65; RESP 16; TEMP 99
== END 2022-01-05 12:39 | disposition home or self-care (01) ==
LOC: FINFUSION 10:57 → FM/S 10:57 → FINFUSION 12:39
PROVIDERS: ATTEND Internal Medicine
DX: M86.9 Osteomyelitis, unspecified (principal)
CPT/HCPCS: 96365

== ENCOUNTER 2022-01-06 11:13 | Day surgery (SDC) | payer OTHER ==
[2022-01-06] MEDS ORDERED: CEFTRIAXONE 2 GM in DEXTROSE 5%-WATER 100 ML IVPB ONE (11:45)
[2022-01-06 12:25] VITALS: BP 115/65; PULSE 72; RESP 18; TEMP 98.7
== END 2022-01-06 12:31 | disposition home or self-care (01) ==
LOC: FINFUSION 11:13 → FM/S 11:15 → FINFUSION 12:31
PROVIDERS: ATTEND Internal Medicine
DX: M86.9 Osteomyelitis, unspecified (principal)
CPT/HCPCS: 96365

== ENCOUNTER 2022-01-07 10:43 | Day surgery (SDC) | payer OTHER ==
[2022-01-07 11:24] VITALS: RESP 18; TEMP 98
[2022-01-07] MEDS ORDERED: CEFTRIAXONE 2 GM in DEXTROSE 5%-WATER 100 ML IVPB ONE (11:30)
[2022-01-07 11:56] VITALS: BP 112/62; PULSE 62
== END 2022-01-07 12:00 | disposition home or self-care (01) ==
LOC: FINFUSION 10:43 → FM/S 10:44 → FINFUSION 12:00
PROVIDERS: ATTEND Internal Medicine
DX: M86.9 Osteomyelitis, unspecified (principal)
CPT/HCPCS: 96365

== ENCOUNTER 2022-01-08 10:36 | Day surgery (SDC) | payer OTHER ==
[2022-01-08] MEDS ORDERED: cefTRIAXone 2 GM/100 ML BAG (PRE-DOCKED) IVPB SCH (11:00)
[2022-01-08 12:58] VITALS: BP 140/64; PULSE 68; RESP 18; TEMP 98.4
== END 2022-01-08 12:58 | disposition home or self-care (01) ==
LOC: FINFUSION 10:36 → FM/S 10:37 → FINFUSION 12:58
PROVIDERS: ATTEND Internal Medicine
DX: M86.9 Osteomyelitis, unspecified (principal)
CPT/HCPCS: 96365

== ENCOUNTER 2022-01-09 10:50 | Day surgery (SDC) | payer OTHER ==
[2022-01-09] MEDS ORDERED: CEFTRIAXONE 2 GM in DEXTROSE 5%-WATER 100 ML IVPB ONE (11:15)
[2022-01-09 12:22] VITALS: BP 111/53; PULSE 55; RESP 18; TEMP 98.8
== END 2022-01-09 12:22 | disposition home or self-care (01) ==
LOC: FINFUSION 10:50 → FM/S 10:51 → FINFUSION 12:22
PROVIDERS: ATTEND Internal Medicine
DX: M86.9 Osteomyelitis, unspecified (principal)
CPT/HCPCS: 96365

== ENCOUNTER 2022-01-10 09:57 | Day surgery (SDC) | payer OTHER ==
[2022-01-10] MEDS ORDERED: CEFTRIAXONE 2 GM in DEXTROSE 5%-WATER 100 ML IVPB ONE (10:30)
[2022-01-10 10:45] LABS: HEMATOCRIT 33.5 % (35.4-49); HEMOGLOBIN 11.5 G/dL (11.7-16.9); MCH 30.7 pg (25.7-33.7); MCHC 34.2 g/dl (32.0-35.9); MEAN CELL VOLUME 89.9 fl (80-96); MEAN PLT VOLUME 8.6 fl (7.5-11.1); PLATELET COUNT 113.3 10^3/uL (134-434); RBC 3.73 10^6/uL (4.00-5.60); RDW 15.1 % (11.9-15.9); WHITE BLOOD COUNT 3.9 10^3/uL (4.0-10.8)
[2022-01-10 11:02] VITALS: RESP 18; TEMP 98
[2022-01-10 11:23] LABS: ERYTHROCYTE SEDIMENTATION RATE 36 mm/hr (0-20)
[2022-01-10 11:24] VITALS: BP 140/80; PULSE 82
[2022-01-10 12:45] LABS: ALBUMIN 3.2 g/dl (3.4-5.0); BILIRUBIN,TOTAL 0.6 mg/dl (0.2-1); CREATININE 0.8 mg/dl (0.55-1.3); TOT PROT 7.9 g/dl (6.4-8.2)
== END 2022-01-10 11:05 | disposition home or self-care (01) ==
LOC: FINFUSION 09:57 → FM/S 10:01 → FINFUSION 11:05
PROVIDERS: ATTEND Internal Medicine
DX: M86.9 Osteomyelitis, unspecified (principal)
CPT/HCPCS: 36415; 80053; 85027; 85651; 96365

== ENCOUNTER 2023-09-11 11:35 | Observation (INO) | payer OTHER ==
[2023-09-11] MEDS ORDERED: ONDANSETRON 4 MG/2 ML VIAL ONE (13:10)
[2023-09-11] MEDS ORDERED: FAMOTIDINE 20 MG/50 ML IVPB 20 MG/50 ML MG IVPB ONE (13:10)
[2023-09-11] MEDS ORDERED: ACETAMINOPHEN INJECTION 100 ML IVPB ONE (13:10)
[2023-09-11 13:14] LABS: BASO % 0.1 % (0-2.0); EOS % 0.2 % (0-4.5); HEMATOCRIT 40.3 % (35.4-49); HEMOGLOBIN 13.6 GM/dL (11.7-16.9); LYMPH % 18.9 % (8-40); MCH 30.6 pg (25.7-33.7); MCHC 33.7 g/dl (32.0-35.9); MEAN CELL VOLUME 90.7 fl (80-96); MEAN PLT VOLUME 7.2 fl (7.5-11.1); MONO % 13.5 % (3.8-10.2); NEUT % 67.3 % (42.8-82.8); PLATELET COUNT 142 10^3/uL (134-434); RBC 4.44 M/mm3 (4.00-5.60); WHITE BLOOD COUNT 9.2 K/mm3 (4.0-10.0)
[2023-09-11] MEDS: FAMOTIDINE 20 MG/50 ML IVPB 20 MG/50 ML MG IVPB ONE (13:16)
[2023-09-11] MEDS: ACETAMINOPHEN 1000 MG/100 ML BAG IVPB ONE (13:16)
[2023-09-11] MEDS: ONDANSETRON 4 MG/2 ML VIAL IVPUSH ONE (13:16)
[2023-09-11 13:33] LABS: POTASSIUM 3.7 mmol/L (3.5-5.1)
[2023-09-11 13:35] LABS: CALCIUM 9.4 mg/dL (8.5-10.1)
[2023-09-11 13:36] LABS: BLOOD UREA NITROGEN 15.8 mg/dL (7-18)
[2023-09-11 13:39] LABS: CREATININE 1.1 mg/dL (0.55-1.3)
[2023-09-11 13:40] LABS: BILIRUBIN,TOTAL 1.5 mg/dL (0.2-1)
[2023-09-11 13:53] LABS: ERYTHROCYTE SEDIMENTATION RATE 73 mm/hr (0-20)
[2023-09-11] MEDS ORDERED: CEFEPIME 2 GM/100 ML BAG IVPB ONE (14:47)
[2023-09-11] MEDS: CEFEPIME HCL 2 GM VIAL (RESTRICTED TO ID) IVPB ONE (15:08)
[2023-09-11] MEDS ORDERED: VANCOMYCIN 1 GRAM (PRE-DOCKED) 1,000 MG/250 ML BAG IVPB ONE (15:17)
[2023-09-11] MEDS: VANCOMYCIN 1,000 MG in DEXTROSE 5%-WATER - 250 ML IVPB ONE (15:45)
[2023-09-11] MEDS: CEFEPIME HCL 2 GM VIAL (RESTRICTED TO ID) IVPB SCH (16:58)
[2023-09-11 17:18] VITALS: BMI 34.4
[2023-09-11] MEDS: CEFAZOLIN SODIUM 2 GM in DEXTROSE 5%-WATER 100 ML IVPB SCH (17:37)
[2023-09-11] MEDS ORDERED: CEFEPIME 2 GM in SODIUM CHLORIDE 100 ML IVPB SCH (23:00)
[2023-09-12 00:10] VITALS: RESP 18
[2023-09-12] MEDS: methaDONE HCL 40 MG DISPERSABLE TABLET PO SCH (06:30)
[2023-09-12 08:43] LABS: POTASSIUM 3.4 mmol/L (3.5-5.1)
[2023-09-12] MEDS: EMTRICITAB/RILPIVIRI/TENOF ALA (ODEFSEY) TABLET PO SCH (08:43)
[2023-09-12 08:46] LABS: BASO % 0.6 % (0-2.0); EOS % 1.8 % (0-4.5); HEMATOCRIT 38.6 % (35.4-49); HEMOGLOBIN 12.8 GM/dL (11.7-16.9); LYMPH % 23.6 % (8-40); MCH 30.4 pg (25.7-33.7); MCHC 33.1 g/dl (32.0-35.9); MEAN CELL VOLUME 91.9 fl (80-96); MEAN PLT VOLUME 7.7 fl (7.5-11.1); MONO % 12.4 % (3.8-10.2); NEUT % 61.6 % (42.8-82.8); PLATELET COUNT 129 10^3/uL (134-434); WHITE BLOOD COUNT 6.3 K/mm3 (4.0-10.0)
[2023-09-12 08:56] LABS: BLOOD UREA NITROGEN 17.2 mg/dL (7-18); CALCIUM 9.2 mg/dL (8.5-10.1); MAGNESIUM 2.3 mg/dL (1.8-2.4)
[2023-09-12 08:57] LABS: ALBUMIN 2.7 g/dl (3.4-5.0)
[2023-09-12 08:59] LABS: PHOSPHOROUS 3.6 mg/dL (2.5-4.9)
[2023-09-12 09:00] LABS: CREATININE 0.9 mg/dL (0.55-1.3)
[2023-09-12 09:01] LABS: BILIRUBIN,TOTAL 1.2 mg/dL (0.2-1); TOT PROT 7.4 g/dl (6.4-8.2)
[2023-09-12] MEDS: amLODIPine BESYLATE 5 MG TABLET (FP) PO SCH (09:36)
[2023-09-12] MEDS: POTASSIUM CHLORIDE TABS 20 MEQ TABLET.ER (FP) PO ONE (09:36)
[2023-09-12] MEDS: FUROSEMIDE 20 MG TABLET (FP) PO SCH (09:36)
[2023-09-12] MEDS: ENOXAPARIN NA (PORCINE) 40 MG/0.4 ML DISP.SYRIN SQ SCH (09:37)
[2023-09-12] MEDS: MIRTAZAPINE 15 MG TABLET (FP) PO SCH (21:50)
[2023-09-12] MEDS: traZODone HCL 100 MG TABLET (FP) PO SCH (21:50)
[2023-09-13 10:22] LABS: HEMATOCRIT 38.5 % (35.4-49); HEMOGLOBIN 12.7 GM/dL (11.7-16.9); MCH 30.2 pg (25.7-33.7); MCHC 33.1 g/dl (32.0-35.9); MEAN CELL VOLUME 91.1 fl (80-96); MEAN PLT VOLUME 8.2 fl (7.5-11.1); PLATELET COUNT 142 10^3/uL (134-434); RBC 4.22 M/mm3 (4.00-5.60); WHITE BLOOD COUNT 4.7 K/mm3 (4.0-10.0)
[2023-09-13 10:33] LABS: POTASSIUM 3.9 mmol/L (3.5-5.1)
[2023-09-13 10:40] LABS: ALBUMIN 2.6 g/dl (3.4-5.0); BLOOD UREA NITROGEN 14.5 mg/dL (7-18)
[2023-09-13 10:43] LABS: CREATININE 0.9 mg/dL (0.55-1.3)
[2023-09-13 10:45] LABS: BILIRUBIN,TOTAL 0.8 mg/dL (0.2-1); TOT PROT 7.4 g/dl (6.4-8.2)
[2023-09-14] MEDS: CEPHALEXIN MONOHYDRATE 500 MG CAPSULE (UD) PO SCH (17:25)
[2023-09-15 10:25] VITALS: BP 128/69; PULSE 79; TEMP 99
== END 2023-09-15 11:12 | disposition home or self-care (01) ==
LOC: JER 11:35 → INTOOBSV 15:20 → JERBED 15:20 → UNDOADMOB 15:20 → JERBED 16:46 → J5S 16:46 → JERBED 09-12 09:23 → J5S 09-12 09:23
PROVIDERS: ADMIT Internal Medicine; ATTEND Internal Medicine
PROC: 3E033NZ Introduction of Analgesics, Hypnotics, Sedatives into Peripheral Vein, Percutaneous Approach (ICD-10-PCS; principal; 2023-09-12)
PROC: 3E03329 Introduction of Other Anti-infective into Peripheral Vein, Percutaneous Approach (ICD-10-PCS; 2023-09-12)
PROC: 3E033GC Introduction of Other Therapeutic Substance into Peripheral Vein, Percutaneous Approach (ICD-10-PCS; 2023-09-12)
DX: L97.519 Non-pressure chronic ulcer of other part of right foot with unspecified severity (principal); F19.90 Other psychoactive substance use, unspecified, uncomplicated; I10 Essential (primary) hypertension; L03.115 Cellulitis of right lower limb; G62.9 Polyneuropathy, unspecified; B20 Human immunodeficiency virus [HIV] disease; K74.60 Unspecified cirrhosis of liver; M86.9 Osteomyelitis, unspecified; Z86.19 Personal history of other infectious and parasitic diseases; Z88.8 Allergy status to other drugs, medicaments and biological substances; Z88.2 Allergy status to sulfonamides
CPT/HCPCS: 36415; 71045-TC-FY; 73552-TC-RT-FY; 73590-TC-RT-FY; 73630-TC-RT-FY; 80053; 83605; 83735; 84100; 84484; 85025; 85027; 85651; 86140; 87040; 93005; 93010; 93971-TC; 96365; 96367; 96368; 96375; 97116-GP; 97161-GP; 99285-25; G0378; J0131

== ENCOUNTER 2024-11-04 12:27 | Emergency (ER) | payer OTHER ==
[2024-11-04 12:46] VITALS: BP 129/90; PULSE 72; RESP 18; TEMP 97.9; BMI 32.9
[2024-11-04] MEDS ORDERED: DOXYCYCLINE HYCLATE 100 MG CAPSULE PO ONE (14:31)
[2024-11-04] MEDS: DOXYCYCLINE HYCLATE 100 MG CAPSULE PO ONE (14:34)
== END 2024-11-04 14:45 | disposition home or self-care (01) ==
LOC: JER 12:27
DX: L03.116 Cellulitis of left lower limb (principal); R23.8 Other skin changes; I87.2 Venous insufficiency (chronic) (peripheral); I10 Essential (primary) hypertension
CPT/HCPCS: 99283-25

== ENCOUNTER 2025-01-16 10:10 | Day surgery (SDC) | payer OTHER ==
[2025-01-14 15:38] VITALS: BMI 33.2
[2025-01-16 13:09] VITALS: TEMP 97
[2025-01-16 13:10] VITALS: RESP 18
[2025-01-16 13:12] VITALS: BP 132/73; PULSE 68
== END 2025-01-16 13:46 | disposition home or self-care (01) ==
LOC: FASU-ENDO 10:10
PROVIDERS: ATTEND Internal Medicine Gastroenterology
PROC: 0DBH8ZX Excision of Cecum, Via Natural or Artificial Opening Endoscopic, Diagnostic (ICD-10-PCS; principal; 2025-01-16 12:21)
DX: Z12.11 Encounter for screening for malignant neoplasm of colon (principal); D12.0 Benign neoplasm of cecum; K57.30 Diverticulosis of large intestine without perforation or abscess without bleeding; K64.0 First degree hemorrhoids
CPT/HCPCS: 88305-TC

== ENCOUNTER 2025-03-06 09:02 | Emergency (ER) | payer OTHER ==
[2025-03-06 09:16] VITALS: BP 135/75; PULSE 72; RESP 20; BMI 28.7
[2025-03-06 09:34] VITALS: TEMP 98.5
== END 2025-03-06 10:10 | disposition home or self-care (01) ==
LOC: JER 09:02
DX: R50.9 Fever, unspecified (principal)
CPT/HCPCS: 99283-25